=== PATIENT | female | born 1975 | race Caucasian/White ===

== ENCOUNTER 2023-12-30 15:35 | Inpatient (IN) | payer MEDICAID, SELFPAY ==
[2023-12-30] VITALS (10 sets, daily range): BP systolic 166–194; BP diastolic 91–108; PULSE 104–110; RESP 17–25; TEMP 36.7–37.2; O2SAT 87–98; BMI 39.9
--- NOTE | 2023-12-30 15:55 | EKG_ITS ---
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
--- NOTE | 2023-12-30 15:56 | XR_ITS ---
Examination: Foot, left, 3 views Technique: AP, oblique, lateral views foot, 3 views Date and time of exam: December 30, 2023 1612 hours INDICATIONS: Redness swelling and pain involving the first digit this week FINDINGS: Pronounced soft tissue swelling about the first digit Prominent bone destruction involving the ungual tuft tip distal phalanx first digit and more subtle bone destruction involving the shaft of the distal phalanx first digit on the medial side IMPRESSION: Significant osteomyelitis distal phalanx first digit, consider MRI foot without contrast follow-up
--- NOTE | 2023-12-30 15:56 | XR_ITS ---
Examination: AP lateral chest 2 views TECHNIQUE: Sitting AP lateral chest 2 views Exam date and time: December 30, 2023 1616 hours Comparison June 22, 2023 INDICATIONS: Shortness of breath today. FINDINGS: Mild chronic heart failure Mild enlargement cardiac contour with prominent vascular congestion Pneumonia both bases Moderate left large right pleural effusions Intact osseous structures IMPRESSION: Mild chronic heart failure Pneumonia both bases Moderate left large right pleural effusion
--- NOTE | 2023-12-30 16:00 | PD.EDRME ---
Rapid Medical Screening Exam [facility] Arrival date/time: 12/30/23 15:35 48-year-old female with past medical history diabetes mellitus type 2 on insulin, hypertension, polysubstance use disorder, history of kidney cancer status post partial nephrectomy, and legally blind presents emergency department complaining of left foot wound, periorbital swelling, tongue edema, and shortness of breath. Chief Complaint: Allergic Reaction Vital signs: Vital Signs Temperature 98.0 F 12/30/23 15:50 Pulse Rate 104 H 12/30/23 15:50 Respiratory Rate 18 12/30/23 15:50 Blood Pressure 170/96 H 12/30/23 15:50 Pulse Oximetry (%) 93 L 12/30/23 15:50 Oxygen Delivery Method Room Air 12/30/23 15:50
[2023-12-30] MEDS: DiphenhydrAMINE 25 MG CAPSULE PO (16:09)
[2023-12-30] MEDS: FAMOTIDINE 20 MG TABLET 40 MG PO (16:09)
[2023-12-30] MEDS: DEXAMETHASONE SOD PHOS INJ 10 MG/ML VIAL IM (16:23)
[2023-12-30 16:45] LABS: Lactate (Lactic Acid) 1.4 mMol/L (0.4-2.0)
[2023-12-30 16:50] LABS: Basophils # (Auto) 0.1 Thou/mm3 (0.0-0.2); Basophils % (Auto) 1 % (0-2.5); Eosinophils # (Auto) 0.1 Thou/mm3 (0.0-0.5); Eosinophils % (Auto) 1 % (0-10); Hematocrit 28.8 % (36.0-46.0); Immature Granulocytes % (Auto) 1 % (0-0); Immature Granulocytes Auto 0.12 Thou/mm3 (0.00-0.00); Lymphocytes # (Auto) 1.2 Thou/mm3 (1.0-4.8); Lymphocytes % (Auto) 11 % (10-50); Mean Corpuscular HGB Conc 30.6 g/dl (31.0-37.0); Mean Corpuscular Hemoglobin 29.3 pg (25.0-35.0); Mean Corpuscular Volume 96 fL (80-100); Monocytes # (Auto) 1.1 Thou/mm3 (0.0-0.8); Monocytes % (Auto) 10 % (0-12); Neutrophils # (Auto) 8.4 Thou/mm3 (1.8-7.7); Neutrophils % (Auto) 76 % (37-80); Nucleated Red Blood Cell % 0 /100 WBC (0); Platelet Count 364 Thou/mm3 (140-440); RDW Standard Deviation 48.5 fL (36.4-46.3); White Blood Count 10.9 Thou/mm3 (3.6-11.0)
[2023-12-30 17:03] LABS: Hemoglobin 8.8 g/dL (12.0-16.0)
[2023-12-30 17:06] LABS: Partial Thromboplastin Time 30.1 Seconds (22.0-36.0); Prothrombin Time 10.6 Seconds (9.0-12.2)
[2023-12-30 17:08] LABS: B-Type Natriuretic Peptide 165 pg/mL (0-100)
[2023-12-30 17:16] LABS: Alanine Aminotransferase 32 U/L (10-49); Albumin, Serum 3.6 gm/dL (3.5-5.0); Alkaline Phosphatase 333 U/L (46-116); Anion Gap 7 (7-16); Aspartate Amino Transferase 24 U/L (0-34); BUN/Creatinine Ratio 16 Ratio (12-20); Bilirubin,Total 0.2 mg/dL (0.3-1.2); Blood Urea Nitrogen 48 mg/dL (9-23); Calcium 8.8 mg/dL (8.3-10.6); Calcium (Corrected) 9.1 mg/dL (8.5-10.1); Chloride 112 mMol/L (98-107); Estimated Creatinine Clearance 27.5 mL/min (>60); Globulin 3.7 gm/dL (2.3-3.5); Glucose 80 mg/dL (74-106); Magnesium 1.8 mg/dL (1.6-2.6); Osmolality,Calculated 287 (275-295); Potassium 4.6 mMol/L (3.4-5.1); Procalcitonin 0.18 ng/ml (0.0-0.49); Sodium 138 mMol/L (136-145); Total Protein 7.3 gm/dL (5.7-8.2); Troponin I < 0.020 ng/mL (0.0-0.045); eGFR 18 See Note
--- NOTE | 2023-12-30 18:24 | PD.EDADULT ---
ED General RME/HPI General Chief complaint: Allergic Reaction Stated complaint: swollen face Time Seen by Provider: 12/30/23 18:13 Source: patient Arrival date/time: 12/30/23 15:35 Mode of arrival: ambulatory Limitations: no limitations RME / HPI RME / HPI narrative: --- DR. MCCONNELL MAIN ED EVALUATION: 48-year-old female with past medical history diabetes mellitus type 2 on insulin, hypertension, polysubstance use disorder, history of kidney cancer status post partial nephrectomy, and legally blind presents emergency department complaining of left foot wound after falling 3 weeks ago in the shower. Patient states that in the last 3 days she started having increasing pain in her big left toe. Current drainage that started the last few days. The patient can see if she was told by her family member that is starting to leak none yellow drainage. Related Data Home Medications ?Medication ?Instructions ?Recorded ?Confirmed gabapentin 600 mg tablet 1,200 mg PO TID 06/16/20 06/22/23 Previous Rx's ?Medication ?Instructions ?Recorded insulin syringe-needle U-100 1 mL #100 ea 02/22/20 28 gauge x 1/2 (BD Insulin Syringe) hydroxyzine HCl 25 mg tablet 25 mg PO HS PRN insom #30 tabs 06/06/23 insulin glulisine U-100 100 10 unit (0.1 mL) subcut TIDWM 30 06/06/23 unit/mL subcutaneous pen days #15 mL trazodone 50 mg tablet 50 mg PO QDAY #30 tabs 06/06/23 blood pressure monitor (Blood #1 ea 06/28/23 Pressure Kit) Allergies Allergy/AdvReac Type Severity Reaction Status Date / Time No Known Allergies Allergy Verified 06/06/23 15:59 Review of Systems Review of Systems Systems Reviewed: All systems reviewed, normal except as documented Narrative Review of Systems: Patient has pain to the right big toe. There is drainage. Denies fevers. No nausea vomiting or diarrhea. Past Medical History Past Medical History NEUROLOGIC: Negative Neurological Disorders or Seizures CARDIAC: Positive Hypertension; Negative Cardiac Disorders or Congestive Heart Failure RESPIRATORY: Negative Chronic Obstructive Pulmonary Disease (COPD) or Asthma GASTROINTESTINAL: Negative Gastrointestinal Disorders GENITOURINARY: Positive Renal Disease REPRODUCTIVE: Positive Previous Pregnancies MUSCULOSKELETAL: Positive Osteomyelitis ENDOCRINE: Positive Endocrine Disorders and Diabetes Mellitus Type 2; Negative Diabetes Mellitus Type 1 HEMATOLOGIC: Negative Sickle Cell Disease PSYCHO/SOCIAL: Positive Depression OTHER HISTORY: Positive Hospitalization and Chicken Pox; Negative Autoimmune Disease, Blood Transfusions, Blood Transfusion Reaction, Anesthesia Reactions or Organ Transplant Family History FAMILY HISTORY: Positive Family Cancer; Negative Family Respiratory Disorders, Family Cardiac Disorders, Family Gastrointestinal Problems, Family Surgery or Family Anesthesia Reaction Surgical History SURGICAL: Positive Abdominal Surgery, Amputation and Section; Negative Cardiac Surgery, Nephrectomy or Organ Transplant Social History SMOKING STATUS: Never smoker ED Exam General Limitations: Present no limitations General appearance: Present alert, in no apparent distress and obese Head Head exam: Present atraumatic, normocephalic and normal inspection Eye Eye exam: Present normal appearance, PERRL and EOMI ENT ENT exam: Present normal exam, normal oropharynx, TM's normal bilaterally and normal external ear exam Neck Neck exam: Present normal inspection and full ROM Chest Chest inspection: Present normal inspection and symmetric chest wall rise Respiratory Respiratory exam: Present normal lung sounds bilaterally Cardiovascular Cardiovascular exam: Present regular rate, normal rhythm and normal heart sounds Abdominal Exam Abdominal exam: Present normal bowel sounds Extremities Exam Extremities exam: Present normal inspection and full ROM Expanded Lower Extremity Exam Foot/toe exam: Present other (Swollen crusted over big meta carpal. No crepitus. No erythema.) Back Exam Back exam: Present normal inspection and full ROM Neurological Exam Neurological exam: Present alert, oriented X3 and CN II-XII intact Psychiatric Psychiatric exam: Present normal affect and normal mood; Absent depressed Skin Skin exam: Present warm, dry, intact and normal color Course Course Course Narrative: CXR is ordered for determining etiology of shortness of breath. Quality Measures none Orders Category Date Time Status Bedside COVID-19 Antigen Test NOW Care 12/30/23 20:23 Active COVID-19 Screening Questionnaire NOW Care 12/30/23 20:17 Active Decision to Admit X1 Care 12/30/23 20:17 Completed EKG (ED ONLY) *Do not use* NOW Care 12/30/23 15:56 Completed Consult to General Surgery Stat Cons 12/30/23 20:16 Ordered EKG (ED Only) Stat Exams 12/30/23 15:55 Draft XR chest 2V Stat Exams 12/30/23 15:56 Completed XR foot comp LT min 3V Stat Exams 12/30/23 15:56 Completed BNP [B-Type Natriuretic Peptide] Stat Lab 12/30/23 16:28 Completed Blood Culture (Lab) Stat Lab 12/30/23 16:20 Received CBC Stat Lab 12/30/23 16:28 Completed Comprehensive Metabolic Panel Stat Lab 12/30/23 16:28 Completed Lactate (Lactic Acid) Stat Lab 12/30/23 16:28 Completed Mag [Magnesium] Stat Lab 12/30/23 16:28 Completed PT [Prothrombin Time with INR] Stat Lab 12/30/23 16:28 Completed PTT [Partial Thromboplastin Time] Stat Lab 12/30/23 16:28 Completed Procalcitonin Stat Lab 12/30/23 16:28 Completed Troponin I Stat Lab 12/30/23 16:28 Completed Urinalysis, C/S if Indicated Stat Lab 12/30/23 19:51 Completed Dexamethasone Inj [Decadron Inj] Med 12/30/23 16:11 Discontinued 10 mg IM X1 ONE DiphenhydrAMINE [Benadryl] Med 12/30/23 16:02 Discontinued 25 mg PO X1 ONE Famotidine [Pepcid] Med 12/30/23 16:02 Discontinued 40 mg PO X1 ONE Morphine Inj Med 12/30/23 20:06 Discontinued 4 mg IVP X1 ONE Ondansetron Inj [Zofran Inj] Med 12/30/23 20:06 Discontinued 4 mg IV X1 ONE Piper/Tazo Inj [Zosyn Inj] 3.375 gm Med 12/30/23 20:06 Active Sodium Chloride 0.9% (P) [Ns 0.9% (P)] 50 ml IV X1 Vancomycin Inj 500 mg Med 12/30/23 20:16 Active Sodium Chloride 0.9% (P) [NS 0.9% mini bag] 100 ml IV X1 Vital Signs Vital signs: Vital Signs Temperature 98.0 F 12/30/23 15:50 Pulse Rate 104 H 12/30/23 15:50 Respiratory Rate 18 12/30/23 15:50 Blood Pressure 170/96 H 12/30/23 15:50 Pulse Oximetry (%) 93 L 12/30/23 15:50 Oxygen Delivery Method Room Air 12/30/23 15:50 [facility] Patient data External records reviewed:: [facility] previous records Clinical information provided by:: patient Social determinants that could affect healthcare access:: none (polysubstance use disorder,) Patient has the following chronic illnesses:: Past medical history High blood pressure Hypertension T2DM, Polysubstance use disorder, Kidney cancer Vision impairment secondary to diabetic retinopathy, Past surgical history s/p partial nephrectomy Osteomyelitis of R foot s/p debridements/amputations History of back surgery How is presenting disease/condition affected by chronic disease/condition?: uneffected by Evaluation data The following diagnostics were reviewed and interpreted by me:: lab results, radiology exam(s) and EKG tracing(s) Lab and/or radiology exams considered but not ordered:: None Interpretation Summary: I personally reviewed and interpreted the LT FOOT XR and CXR on this patient. I additionally reviewed the radiologist report and agree with that interpretation. Examination: Foot, left, 3 views Technique: AP, oblique, lateral views foot, 3 views Date and time of exam: December 30, 2023 1612 hours INDICATIONS: Redness swelling and pain involving the first digit this week FINDINGS: Pronounced soft tissue swelling about the first digit Prominent bone destruction involving the ungual tuft tip distal phalanx first digit and more subtle bone destruction involving the shaft of the distal phalanx first digit on the medial side IMPRESSION: Significant osteomyelitis distal phalanx first digit, consider MRI foot without contrast follow-up Dictated By: Christian Cooper MD Examination: AP lateral chest 2 views TECHNIQUE: Sitting AP lateral chest 2 views Exam date and time: December 30, 2023 1616 hours Comparison June 22, 2023 INDICATIONS: Shortness of breath today. FINDINGS: Mild chronic heart failure Mild enlargement cardiac contour with prominent vascular congestion Pneumonia both bases Moderate left large right pleural effusions Intact osseous structures IMPRESSION: Mild chronic heart failure Pneumonia both bases Moderate left large right pleural effusion Dictated By: Christian Cooper MD Medications Medications considered but not ordered:: None Medication administrations:: Medication Administration History Piperacillin Sod/Tazobactam (Sod 3.375 gm/ Sodium Chloride) 50 mls @ 100 mls/hr IV X1 ONE Stop: 12/30/23 20:35 Last Admin: 12/30/23 20:20 Dose: 100 mls/hr Documented By: FARIHA Vancomycin HCl 500 mg/ Sodium (Chloride) 100 mls @ 100 mls/hr IV X1 ONE Stop: 12/30/23 21:15 Discontinued Medications Dexamethasone Sodium Phosphate (Dexamethasone Sod Phos Inj 10 Mg/Ml Vial) 10 mg IM X1 ONE Stop: 12/30/23 16:12 Last Admin: 12/30/23 16:23 Dose: 10 mg Documented By: Diphenhydramine HCl (Diphenhydramine 25 Mg Capsule) 25 mg PO X1 ONE Stop: 12/30/23 16:03 Last Admin: 12/30/23 16:09 Dose: 25 mg Documented By: Famotidine (Famotidine 20 Mg Tablet) 40 mg PO X1 ONE Stop: 12/30/23 16:03 Last Admin: 12/30/23 16:09 Dose: 40 mg Documented By: Morphine Sulfate (Morphine Sulf Inj 10 Mg/Ml Vial) 4 mg IVP X1 ONE Stop: 12/30/23 20:07 Last Admin: 12/30/23 20:20 Dose: 4 mg Documented By: CB Ondansetron HCl (Ondansetron Inj 2 Mg/Ml Inj 2 Ml) 4 mg IV X1 ONE; Protocol Stop: 12/30/23 20:07 Last Admin: 12/30/23 20:19 Dose: 4 mg Documented By: FARIHA As above Consultations Consultation(s) initiated? (list below): Yes Diagnosis Differential Diagnosis ED Complaint MDM: osteomyelitis, cellulitis, recurrent osteo, fracture, diabetic foot ulcer Most likely diagnosis given after review of the tests above:: Osteomyelitis of great toe, Pleural effusion, Shortness of breath, KIM (acute kidney injury) Admission Indicated Admission indicated?: indicated Explain why admission is indicated or not indicated:: Significant findings warranting inpatient admission Admission Request Was there a request for admission?: No Disposition Plan Disposition Plan: Admit Medical Decision Making MDM Narrative MDM Narrative: 48-year-old female with past medical history diabetes mellitus type 2 on insulin, hypertension, polysubstance use disorder, history of kidney cancer status post partial nephrectomy, and legally blind presents emergency department complaining of left foot wound after falling 3 weeks ago in the shower. Patient states that in the last 3 days she started having increasing pain in her big left toe. Current drainage that started the last few days. The patient can see if she was told by her family member that is starting to leak none yellow drainage. Assessment and plan: Follow-up exam. X-ray to look for osteomyelitis, labs to ensure that she does not have occult bacteremia. ? Scribe Attestation: I, Eli Wright, am scribing for and in the presence of Dr. Jameson. Provider Notation: Although this document has been carefully reviewed, there may still be some phonetic and other typographical errors. These errors are purely grammatical due to imperfections in the software program and should not be construed in any way to compromise the substance of the patient's medical care during this visit. Differential Diagnosis Differential Diagnosis: osteomyelitis, cellulitis, recurrent osteo, fracture, diabetic foot ulcer Medical Records Medical records reviewed: Yes I reviewed the patient's medical records. Lab Data Lab results reviewed: Yes I reviewed the patient's lab results. 12/30/23 16:28 12/30/23 16:28 Labs: Lab Results 12/30/23 12/30/23 Range/Units 16:28 19:51 WBC 10.9 (3.6-11.0) Thou/mm3 RBC 3.00 L (4.00-5.20) Miln/mm3 Hgb 8.8 L (12.0-16.0) g/dL Hct 28.8 L (36.0-46.0) % MCV 96 (80-100) fL MCH 29.3 (25.0-35.0) pg MCHC 30.6 L (31.0-37.0) g/dl RDW Std Deviation 48.5 H (36.4-46.3) fL Plt Count 364 (140-440) Thou/mm3 Neut % (Auto) 76 (37-80) % Lymph % (Auto) 11 (10-50) % [place] % (Auto) 10 (0-12) % Eos % (Auto) 1 (0-10) % Baso % (Auto) 1 (0-2.5) % Neut # (Auto) 8.4 H (1.8-7.7) Thou/mm3 Lymph # (Auto) 1.2 (1.0-4.8) Thou/mm3 [place] # (Auto) 1.1 H (0.0-0.8) Thou/mm3 Eos # (Auto) 0.1 (0.0-0.5) Thou/mm3 Baso # (Auto) 0.1 (0.0-0.2) Thou/mm3 Immature Gran # (Auto) 0.12 H (0.00-0.00) Thou/mm3 Absolute Nucleated RBC 0.00 (0.00-0.00) Thou/mm3 Immature Gran % 1 H (0-0) % Nucleated RBC % 0 (0) /100 WBC PT 10.6 (9.0-12.2) Seconds INR 1.0 (0.9-1.3) APTT 30.1 (22.0-36.0) Seconds Sodium 138 (136-145) mMol/L Potassium 4.6 (3.4-5.1) mMol/L Chloride 112 H (98-107) mMol/L Carbon Dioxide 19.0 L (20.0-31.0) mMol/L Anion Gap 7 (7-16) BUN 48 H (9-23) mg/dL Creatinine 3.0 H (0.6-1.3) mg/dL Estim Creat Clear Calc 27.5 L (>60) mL/min eGFR 18 L (60 - ) See Note BUN/Creatinine Ratio 16 (12-20) Ratio Glucose 80 (74-106) mg/dL Calculated Osmolality 287 (275-295) Lactic Acid 1.4 (0.4-2.0) mMol/L Calcium 8.8 (8.3-10.6) mg/dL Corrected Calcium 9.1 (8.5-10.1) mg/dL Magnesium 1.8 (1.6-2.6) mg/dL Total Bilirubin 0.2 L (0.3-1.2) mg/dL AST 24 (0-34) U/L ALT 32 (10-49) U/L Alkaline Phosphatase 333 H (46-116) U/L Troponin I < 0.020 (0.0-0.045) ng/mL B-Natriuretic Peptide 165 H (0-100) pg/mL Total Protein 7.3 (5.7-8.2) gm/dL Albumin 3.6 (3.5-5.0) gm/dL Globulin 3.7 H (2.3-3.5) gm/dL Albumin/Globulin Ratio 1.0 L (1.2-2.2) Procalcitonin 0.18 (0.0-0.49) ng/ml Ur Collection Type Clean Catch Urine Color Lt-Yellow (Lt Yel-Yel) Urine Clarity Clear (Clear/Hazy) Urine pH 6.5 (5.0-7.0) Ur Specific [place] 1.020 (1.001-1.035) Urine Protein 3+ A (Neg - Trace) Urine Glucose (UA) 2+ A (Negative) Urine Ketones Negative (Negative) Urine Blood 2+ A (Negative) Urine Nitrite Negative (Negative) Urine Bilirubin Negative (Negative) Urine Urobilinogen (Auto) Negative (0.0-1.0) mg/dL Ur Leukocyte Esterase Negative (Negative) Urine RBC 7 H (0-3) /hpf Urine WBC 3 (0-5) /hpf Ur Squamous Epith Cells 1 (0-5) /hpf Urine Bacteria None (None) Ur Culture Indicated? Not Indicated Radiology Data Radiology results reviewed: Yes I reviewed the patient's radiology results. Discharge Plan Plan Patient Disposition: Other Care w/in Hosp ([facility]) Patient condition on transfer: Stable Prescriptions/Referrals Prescriptions/Med Rec: No Action gabapentin 600 mg Tablet 1,200 mg PO TID (DME) insulin syringe-needle U-100 [BD Insulin Syringe] 1 mL 28 gauge x 1/2 syringe See Rx Instructions .ROUTE .MEDSUPPLY Qty: 100 0RF Rx Instructions: As directed trazodone 50 mg tablet 50 mg PO QDAY Qty: 30 0RF hydroxyzine HCl 25 mg tablet 25 mg PO HS PRN (Reason: insom) Qty: 30 0RF insulin glulisine U-100 100 unit/mL insulin pen 10 unit subcut TIDWM 30 Days Qty: 15 1RF (DME) blood pressure monitor [Blood Pressure Kit] Kit See Rx Instructions .Route Qty: 1 0RF Rx Instructions: As directed Referrals: No Primary/Family,Physician [Primary Care Provider] - In 1 week Problem List Clinical Impression: Osteomyelitis of great toe, Pleural effusion, Shortness of breath, KIM (acute kidney injury) Patient/Caregiver Discharge Instructions Print Language: Yi Stand Alone Forms: Monik Award Info., Patient Portal Info Letter PA/[employer] Supervising Physician PA/[employer] Supervising Physician: Salas Brock ENP
--- NOTE | 2023-12-30 19:33 | PD.EDRME ---
Rapid Medical Screening Exam RME Arrival date/time: 12/30/23 15:35 12/30/23 48-year-old female with past medical history diabetes mellitus type 2 on insulin, hypertension, polysubstance use disorder, history of kidney cancer status post partial nephrectomy, and legally blind presents emergency department complaining of left foot wound after falling 3 weeks ago in the shower. Patient states that in the last 3 days she started having increasing pain in her big left toe. Current drainage that started the last few days. The patient can see if she was told by her family member that is starting to leak none yellow drainage. Past medical history High blood pressure Hypertension T2DM, Polysubstance use disorder, Kidney cancer s/p partial nephrectomy, Vision impairment secondary to diabetic retinopathy, Osteomyelitis of R foot s/p debridements/amputations History of back surgery Chief Complaint: Allergic Reaction Time Seen by Provider: 12/30/23 18:13 Vital signs: Vital Signs Temperature 98.0 F 12/30/23 15:50 Pulse Rate 104 H 12/30/23 15:50 Respiratory Rate 18 12/30/23 15:50 Blood Pressure 170/96 H 12/30/23 15:50 Pulse Oximetry (%) 93 L 12/30/23 15:50 Oxygen Delivery Method Room Air 12/30/23 15:50 RME Narrative: 12/30/23 48-year-old female with past medical history diabetes mellitus type 2 on insulin, hypertension, polysubstance use disorder, history of kidney cancer status post partial nephrectomy, and legally blind presents emergency department complaining of left foot wound after falling 3 weeks ago in the shower. Patient states that in the last 3 days she started having increasing pain in her big left toe. Current drainage that started the last few days. The patient can see if she was told by her family member that is starting to leak none yellow drainage. Past medical history High blood pressure Hypertension T2DM, Polysubstance use disorder, Kidney cancer s/p partial nephrectomy, Vision impairment secondary to diabetic retinopathy, Osteomyelitis of R foot s/p debridements/amputations History of back surgery
--- NOTE | 2023-12-30 19:56 | PD.EDADULT ---
ED General RME/HPI General Chief complaint: Allergic Reaction Stated complaint: swollen face Time Seen by Provider: 12/30/23 18:13 Arrival date/time: 12/30/23 15:35 CC: Left great toe pain shortness of breath HPI left great toe has been oozing pus for the past 2 to 3 days, the patient also complaining of 24 hours of progressive worsening shortness of breath. Patient denies chest pain, is also complaining of swollen upper extremities and acute on chronic back pain. Patient denies fall. Patient is well-known to us from multiple admissions and has an extensive medical history. Related Data Home Medications ?Medication ?Instructions ?Recorded ?Confirmed gabapentin 600 mg tablet 1,200 mg PO TID 06/16/20 12/30/23 Previous Rx's ?Medication ?Instructions ?Recorded insulin syringe-needle U-100 1 mL #100 ea 02/22/20 28 gauge x 1/2 (BD Insulin Syringe) hydroxyzine HCl 25 mg tablet 25 mg PO HS PRN insom #30 tabs 06/06/23 insulin glulisine U-100 100 10 unit (0.1 mL) subcut TIDWM 30 06/06/23 unit/mL subcutaneous pen days #15 mL blood pressure monitor (Blood #1 ea 06/28/23 Pressure Kit) Allergies Allergy/AdvReac Type Severity Reaction Status Date / Time No Known Allergies Allergy Verified 06/06/23 15:59 Review of Systems Review of Systems Narrative Review of Systems: GEN: No fever, no chills, no weight loss EYES: No discharge, no visual changes, no pain HEENT: No ear pain, no congestion, no sore throat PULM: + shortness of breath, no cough, no congestion CV: No chest pain, no dyspnea on exertion, no palpitations GI: No nausea, no vomiting, no diarrhea, no pain, no constipation : No frequency, no urgency, no dysuria MUSC/SKEL: + joint pain, + back pain SKIN: No rash PSYCH: No hallucinations, no depression HEME/LYMPH: No easy bleeding or bruising tendencies NEURO: No weakness, no headache Past Medical History Past Medical History NEUROLOGIC: Negative Neurological Disorders or Seizures CARDIAC: Positive Hypertension; Negative Cardiac Disorders or Congestive Heart Failure RESPIRATORY: Negative Chronic Obstructive Pulmonary Disease (COPD) or Asthma GASTROINTESTINAL: Negative Gastrointestinal Disorders GENITOURINARY: Positive Renal Disease REPRODUCTIVE: Positive Previous Pregnancies MUSCULOSKELETAL: Positive Osteomyelitis ENDOCRINE: Positive Endocrine Disorders and Diabetes Mellitus Type 2; Negative Diabetes Mellitus Type 1 HEMATOLOGIC: Negative Sickle Cell Disease PSYCHO/SOCIAL: Positive Depression OTHER HISTORY: Positive Hospitalization and Chicken Pox; Negative Autoimmune Disease, Blood Transfusions, Blood Transfusion Reaction, Anesthesia Reactions or Organ Transplant Family History FAMILY HISTORY: Positive Family Cancer; Negative Family Respiratory Disorders, Family Cardiac Disorders, Family Gastrointestinal Problems, Family Surgery or Family Anesthesia Reaction Surgical History SURGICAL: Positive Abdominal Surgery, Amputation and Section; Negative Cardiac Surgery, Nephrectomy or Organ Transplant Social History SMOKING STATUS: Never smoker ED Exam Narrative Physical exam: [General: Obese in moderate discomfort but not in any acute distress Head normocephalic HEENT: Within acceptable limits Neck is supple nontender Chest equal chest rise nontender to palpation Respiratory: Diminished breath sounds on right CV: Rate rhythm is regular no murmurs rubs or clicks Abdomen is distended secondary to body habitus soft nontender no masses positive bowel sounds all 4 quadrants Back: No CVA tenderness no spinous process tenderness from cervical spine thoracic and lumbar spine Skin: Open crusting and lesion oozing exudate from the tip of the first digit on the left foot. Otherwise skin is intact no petechiae rash induration ulceration or crepitus Extremities: Nonpitting edema to the upper extremities nonpitting edema to the lower extremities. Decreased range of motion secondary to edema in the lower extremities moving all extremity against resistance cap refill less than 2 seconds neurosensory intact Neuro: Awake alert oriented x3 Glascow coma 15 no focal deficits] Course Quality Measures none Orders Category Date Time Status Bedside COVID-19 Antigen Test NOW Care 12/30/23 20:23 Active COVID-19 Screening Questionnaire NOW Care 12/30/23 20:17 Active Decision to Admit X1 Care 12/30/23 20:17 Completed EKG (ED ONLY) *Do not use* NOW Care 12/30/23 15:56 Completed Consult to General Surgery Stat Cons 12/30/23 20:16 Ordered EKG (ED Only) Stat Exams 12/30/23 15:55 Draft XR chest 2V Stat Exams 12/30/23 15:56 Completed XR foot comp LT min 3V Stat Exams 12/30/23 15:56 Completed BNP [B-Type Natriuretic Peptide] Stat Lab 12/30/23 16:28 Completed Blood Culture (Lab) Stat Lab 12/30/23 16:20 Received CBC Stat Lab 12/30/23 16:28 Completed Comprehensive Metabolic Panel Stat Lab 12/30/23 16:28 Completed Lactate (Lactic Acid) Stat Lab 12/30/23 16:28 Completed Mag [Magnesium] Stat Lab 12/30/23 16:28 Completed PT [Prothrombin Time with INR] Stat Lab 12/30/23 16:28 Completed PTT [Partial Thromboplastin Time] Stat Lab 12/30/23 16:28 Completed Procalcitonin Stat Lab 12/30/23 16:28 Completed Troponin I Stat Lab 12/30/23 16:28 Completed Urinalysis, C/S if Indicated Stat Lab 12/30/23 19:51 Completed Dexamethasone Inj [Decadron Inj] Med 12/30/23 16:11 Discontinued 10 mg IM X1 ONE DiphenhydrAMINE [Benadryl] Med 12/30/23 16:02 Discontinued 25 mg PO X1 ONE Famotidine [Pepcid] Med 12/30/23 16:02 Discontinued 40 mg PO X1 ONE Morphine Inj Med 12/30/23 20:06 Discontinued 4 mg IVP X1 ONE Ondansetron Inj [Zofran Inj] Med 12/30/23 20:06 Discontinued 4 mg IV X1 ONE Piper/Tazo Inj [Zosyn Inj] 3.375 gm Med 12/30/23 20:06 Discontinued Sodium Chloride 0.9% (P) [Ns 0.9% (P)] 50 ml IV X1 Vancomycin Inj 500 mg Med 12/30/23 20:16 Discontinued Sodium Chloride 0.9% (P) [NS 0.9% mini bag] 100 ml IV X1 Vital Signs Vital signs: Vital Signs Temperature 98.0 F 12/30/23 15:50 Pulse Rate 104 H 12/30/23 15:50 Respiratory Rate 18 12/30/23 15:50 Blood Pressure 170/96 H 12/30/23 15:50 Pulse Oximetry (%) 93 L 12/30/23 15:50 Oxygen Delivery Method Room Air 12/30/23 15:50 [facility] Patient data External records reviewed:: [facility] previous records Clinical information provided by:: patient Social determinants that could affect healthcare access:: none Patient has the following chronic illnesses:: Hypertension diabetes type 2 Sub polysubstance disuse kidney cancer status post partial nephrectomy legal blindness secondary to diabetic neuropathy osteomyelitis with multiple old toe amputations. How is presenting disease/condition affected by chronic disease/condition?: uneffected by Evaluation data The following diagnostics were reviewed and interpreted by me:: lab results, radiology exam(s) and EKG tracing(s) Lab and/or radiology exams considered but not ordered:: CBC shows WBCs of 10.9 H&H of 8.8 and 28.8 with platelets of 364 CMP shows a sodium of 138 potassium of 4.6 chloride of 112 CO2 of 19.0 BUN of 48 creatinine 3.0 with a blood glucose of 80 Coags within acceptable limits. Total bili is 0.2 AST 24 ALT 32 alk phos of 333 BNP is 165 Pro-John 0.18 Chest x-ray shows a large right pleural effusion X-ray of the foot shows extensive osteomyelitis of the first digit of the foot. Interpretation Summary: Patient has osteomyelitis of the great toe, large pleural effusion, and KIM. Patient's case discussed with resident for Dr. Cunningham who agrees to accept the patient for admission Patient's case also discussed with Dr. Wiseman who agrees to consult on this patient. Medications Medications considered but not ordered:: None Medication administrations:: Medication Administration History Acetaminophen (Acetaminophen 325 Mg Tablet) 650 mg PO Q6H PRN PRN Reason: PAIN OR FEVER > 101 Stop: 01/29/24 20:51 Hydrocodone Bitart/Acetaminophen (Hydrocodone/Apap 5/325 Tablet) 1 tab PO Q6HR PRN PRN Reason: PAIN SCALE 4-10(Mod-Sev Stop: 01/04/24 20:51 Last Admin: 12/31/23 09:28 Dose: 1 tab Documented By: Admin: 12/30/23 22:47 Dose: 1 tab Documented By: FARIHA Amlodipine Besylate (Amlodipine Besylate 5 Mg Tablet) 10 mg PO QDAY KARY Stop: 01/30/24 08:59 Last Admin: 12/31/23 09:26 Dose: 10 mg Documented By: ROHAN Dextrose (Dextrose 50%-Water Inj 50 Ml Syringe) 25 ml IV Q15MIN PRN PRN Reason: BG 50-70 responsive npo pt Stop: 01/29/24 21:04 Dextrose (Dextrose 50%-Water Inj 50 Ml Syringe) 50 ml IV Q15MIN PRN PRN Reason: BG <50 OR BG <70 & pt unresponsive Stop: 01/29/24 21:04 Furosemide (Furosemide Inj 10 Mg/Ml 4ml Vial) 40 mg IVP QDAY [facility] Stop: 01/30/24 08:59 Last Admin: 12/31/23 09:28 Dose: 40 mg Documented By: ROHAN Gabapentin (Gabapentin 300 Mg Capsule) 300 mg PO TID [facility] Stop: 01/29/24 21:59 Last Admin: 12/31/23 06:34 Dose: 300 mg Documented By: Admin: 12/30/23 22:44 Dose: 300 mg Documented By: FARIHA Glucagon (Glucagon Inj 1 Mg Vial) 1 mg IM Q15MIN PRN PRN Reason: BG <70, and no IV access Heparin Sodium (Porcine) (Heparin Sod Inj 5000 Unit/Ml Vial) 5,000 unit SC Q12HR [facility] Stop: 01/14/24 08:59 Last Admin: 12/31/23 09:30 Dose: 5,000 unit Documented By: ROHAN Co-signed By: PREMA Hydralazine HCl (Hydralazine Hcl 25 Mg Tablet) 25 mg PO TID [facility] Stop: 01/30/24 08:59 Last Admin: 12/31/23 09:25 Dose: 25 mg Documented By: ROHAN Hydroxyzine HCl (Hydroxyzine Hcl 25 Mg Tablet) 25 mg PO HS PRN PRN Reason: insom Stop: 01/30/24 00:06 Last Admin: 12/31/23 00:28 Dose: 25 mg Documented By: FARIHA Piperacillin/Tazobactam/Dextrose (Zosyn) 50 mls @ 12.5 mls/hr IV Q8HR [facility]; Protocol Stop: 01/07/24 07:59 Last Admin: 12/31/23 09:22 Dose: 12.5 mls/hr Documented By: ROHAN Doxycycline Hyclate 100 mg/ (Sodium Chloride) 100 mls @ 100 mls/hr IV BID [facility] Stop: 01/07/24 08:59 Last Admin: 12/31/23 10:13 Dose: 100 mls/hr Documented By: ROHAN Insulin Glargine (Insulin Glargine (Lantus) 5 Unit/0.05 Ml (Per 5 Units)) 10 unit SC DAILY [facility] Stop: 01/30/24 08:59 Last Admin: 12/31/23 09:38 Dose: 10 unit Documented By: ROHAN Co-signed By: PREMA Insulin Human Lispro (Insulin Lispro (Admelog) 1 Unit/0.01 Ml Unit) 0 unit SC AC [facility]; Protocol Stop: 01/30/24 11:29 Ondansetron HCl (Ondansetron Inj 2 Mg/Ml Inj 2 Ml) 4 mg IV Q6H PRN; Protocol PRN Reason: NAUSEA OR VOMITING Stop: 01/29/24 20:51 Pantoprazole Sodium (Pantoprazole 40 Mg Tablet) 40 mg PO QDAY KARY Stop: 01/30/24 08:59 Last Admin: 12/31/23 09:27 Dose: 40 mg Documented By: ROHAN Sennosides (Senna Tablet) 1 tab PO QDAY KARY; Protocol Stop: 01/30/24 08:59 Last Admin: 12/31/23 09:27 Dose: 1 tab Documented By: ROHAN Discontinued Medications Dexamethasone Sodium Phosphate (Dexamethasone Sod Phos Inj 10 Mg/Ml Vial) 10 mg IM X1 ONE Stop: 12/30/23 16:12 Last Admin: 12/30/23 16:23 Dose: 10 mg Documented By: Diphenhydramine HCl (Diphenhydramine 25 Mg Capsule) 25 mg PO X1 ONE Stop: 12/30/23 16:03 Last Admin: 12/30/23 16:09 Dose: 25 mg Documented By: Famotidine (Famotidine 20 Mg Tablet) 40 mg PO X1 ONE Stop: 12/30/23 16:03 Last Admin: 12/30/23 16:09 Dose: 40 mg Documented By: Furosemide (Furosemide Inj 10 Mg/Ml 4ml Vial) 40 mg IVP X1 ONE Stop: 12/30/23 21:06 Last Admin: 12/30/23 21:25 Dose: 40 mg Documented By: FARIHA Furosemide (Furosemide Inj 10 Mg/Ml 4ml Vial) 20 mg IVP X1 ONE Stop: 12/31/23 01:12 Last Admin: 12/31/23 01:22 Dose: 20 mg Documented By: FARIHA Hydralazine HCl (Hydralazine Inj 20 Mg/Ml Vial) 10 mg IV X1 ONE Stop: 12/30/23 21:04 Last Admin: 12/30/23 21:25 Dose: 10 mg Documented By: FARIHA Hydralazine HCl (Hydralazine Hcl 25 Mg Tablet) 25 mg PO X1 ONE Stop: 12/31/23 00:32 Last Admin: 12/31/23 00:43 Dose: Not Given Documented By: CB Non-Admin Reason: Cancelled by Provider Piperacillin Sod/Tazobactam (Sod 3.375 gm/ Sodium Chloride) 50 mls @ 100 mls/hr IV X1 ONE Stop: 12/30/23 20:35 Last Infusion: 12/30/23 20:52 Dose: Infused Documented By: Admin: 12/30/23 20:20 Dose: 100 mls/hr Documented By: FARIHA Vancomycin HCl 500 mg/ Sodium (Chloride) 100 mls @ 100 mls/hr IV X1 ONE Stop: 12/30/23 21:15 Last Infusion: 12/30/23 22:05 Dose: Infused Documented By: Admin: 12/30/23 21:01 Dose: 100 mls/hr Documented By: FARIHA Piperacillin/Tazobactam/Dextrose (Zosyn) 50 mls @ 12.5 mls/hr IV Q8HR [facility] Stop: 01/07/24 05:59 Doxycycline Hyclate 100 mg/ (Sodium Chloride) 100 mls @ 100 mls/hr IV BID [facility] Stop: 01/06/24 20:59 Last Admin: 12/30/23 22:05 Dose: Not Given Documented By: CB Non-Admin Reason: Cancelled by Provider Piperacillin/Tazobactam/Dextrose (Zosyn) 50 mls @ 100 mls/hr IV X1 ONE Stop: 12/30/23 21:44 Doxycycline Hyclate 100 mg/ (Sodium Chloride) 100 mls @ 100 mls/hr IV X1 ONE Stop: 12/30/23 22:29 Last Infusion: 12/31/23 00:07 Dose: Infused Documented By: Admin: 12/30/23 22:44 Dose: 100 mls/hr Documented By: FARIHA Insulin Glargine (Insulin Glargine (Lantus) 5 Unit/0.05 Ml (Per 5 Units)) 10 unit SC X1 ONE Stop: 12/31/23 09:01 Insulin Human Lispro (Insulin Lispro (Admelog) 1 Unit/0.01 Ml Unit) 0 unit SC [facility]; Protocol Stop: 01/30/24 07:29 Last Admin: 12/31/23 09:47 Dose: Not Given Documented By: VG Non-Admin Reason: Discontinued Morphine Sulfate (Morphine Sulf Inj 10 Mg/Ml Vial) 4 mg IVP X1 ONE Stop: 12/30/23 20:07 Last Admin: 12/30/23 20:20 Dose: 4 mg Documented By: FARIHA Nitroglycerin (Nitroglycerin 0.4 Mg Subl Btl #25) 0.4 mg SL X1 ONE Stop: 12/31/23 00:39 Last Admin: 12/31/23 00:44 Dose: 0.4 mg Documented By: FARIHA Nitroglycerin (Nitroglycerin 0.4 Mg/Hr Patch.Td24) 0.4 mg TOP X1 ONE Stop: 12/31/23 01:11 Last Admin: 12/31/23 01:17 Dose: Not Given Documented By: FARIHA Non-Admin Reason: Cancelled by Provider Nitroglycerin (Nitroglycerin Oint 2% 1 Inch Packet) 1 inch TOP X1 ONE Stop: 12/31/23 01:17 Last Admin: 12/31/23 01:22 Dose: 1 inch Documented By: FARIHA Ondansetron HCl (Ondansetron Inj 2 Mg/Ml Inj 2 Ml) 4 mg IV X1 ONE; Protocol Stop: 12/30/23 20:07 Last Admin: 12/30/23 20:19 Dose: 4 mg Documented By: FARIHA None Consultations Consultation(s) initiated? (list below): No Diagnosis Differential Diagnosis ED Complaint MDM: Great toe osteomyelitis pleural effusion shortness of breath KIM Most likely diagnosis given after review of the tests above:: Osteomyelitis pleural effusion KIM Admission Indicated Admission indicated?: indicated Explain why admission is indicated or not indicated:: Requires further medical management Admission Request Was there a request for admission?: No Disposition Plan Disposition Plan: Admit Medical Decision Making Differential Diagnosis Differential Diagnosis: Great toe osteomyelitis pleural effusion shortness of breath KIM Lab Data 12/31/23 04:30 12/31/23 04:30 Labs: Lab Results 12/30/23 12/30/23 Range/Units 16:28 19:51 WBC 10.9 (3.6-11.0) Thou/mm3 RBC 3.00 L (4.00-5.20) Miln/mm3 Hgb 8.8 L (12.0-16.0) g/dL Hct 28.8 L (36.0-46.0) % MCV 96 (80-100) fL MCH 29.3 (25.0-35.0) pg MCHC 30.6 L (31.0-37.0) g/dl RDW Std Deviation 48.5 H (36.4-46.3) fL Plt Count 364 (140-440) Thou/mm3 Neut % (Auto) 76 (37-80) % Lymph % (Auto) 11 (10-50) % [place] % (Auto) 10 (0-12) % Eos % (Auto) 1 (0-10) % Baso % (Auto) 1 (0-2.5) % Neut # (Auto) 8.4 H (1.8-7.7) Thou/mm3 Lymph # (Auto) 1.2 (1.0-4.8) Thou/mm3 [place] # (Auto) 1.1 H (0.0-0.8) Thou/mm3 Eos # (Auto) 0.1 (0.0-0.5) Thou/mm3 Baso # (Auto) 0.1 (0.0-0.2) Thou/mm3 Immature Gran # (Auto) 0.12 H (0.00-0.00) Thou/mm3 Absolute Nucleated RBC 0.00 (0.00-0.00) Thou/mm3 Immature Gran % 1 H (0-0) % Nucleated RBC % 0 (0) /100 WBC PT 10.6 (9.0-12.2) Seconds INR 1.0 (0.9-1.3) APTT 30.1 (22.0-36.0) Seconds Sodium 138 (136-145) mMol/L Potassium 4.6 (3.4-5.1) mMol/L Chloride 112 H (98-107) mMol/L Carbon Dioxide 19.0 L (20.0-31.0) mMol/L Anion Gap 7 (7-16) BUN 48 H (9-23) mg/dL Creatinine 3.0 H (0.6-1.3) mg/dL Estim Creat Clear Calc 27.5 L (>60) mL/min eGFR 18 L (60 - ) See Note BUN/Creatinine Ratio 16 (12-20) Ratio Glucose 80 (74-106) mg/dL Calculated Osmolality 287 (275-295) Lactic Acid 1.4 (0.4-2.0) mMol/L Calcium 8.8 (8.3-10.6) mg/dL Corrected Calcium 9.1 (8.5-10.1) mg/dL Magnesium 1.8 (1.6-2.6) mg/dL Total Bilirubin 0.2 L (0.3-1.2) mg/dL AST 24 (0-34) U/L ALT 32 (10-49) U/L Alkaline Phosphatase 333 H (46-116) U/L Troponin I < 0.020 (0.0-0.045) ng/mL B-Natriuretic Peptide 165 H (0-100) pg/mL Total Protein 7.3 (5.7-8.2) gm/dL Albumin 3.6 (3.5-5.0) gm/dL Globulin 3.7 H (2.3-3.5) gm/dL Albumin/Globulin Ratio 1.0 L (1.2-2.2) Procalcitonin 0.18 (0.0-0.49) ng/ml Ur Collection Type Clean Catch Urine Color Lt-Yellow (Lt Yel-Yel) Urine Clarity Clear (Clear/Hazy) Urine pH 6.5 (5.0-7.0) Ur Specific [place] 1.020 (1.001-1.035) Urine Protein 3+ A (Neg - Trace) Urine Glucose (UA) 2+ A (Negative) Urine Ketones Negative (Negative) Urine Blood 2+ A (Negative) Urine Nitrite Negative (Negative) Urine Bilirubin Negative (Negative) Urine Urobilinogen (Auto) Negative (0.0-1.0) mg/dL Ur Leukocyte Esterase Negative (Negative) Urine RBC 7 H (0-3) /hpf Urine WBC 3 (0-5) /hpf Ur Squamous Epith Cells 1 (0-5) /hpf Urine Bacteria None (None) Ur Culture Indicated? Not Indicated Discharge Plan Plan Patient Disposition: Other Care w/in Hosp ([facility]C/[facility]JIV) Patient condition on transfer: Stable Problem List Clinical Impression: Osteomyelitis of great toe, Pleural effusion, Shortness of breath, KIM (acute kidney injury) PA/BRIM MOLDER Supervising Physician PA/BRIM MOLDER Supervising Physician: Salas Brock ENP
[2023-12-30 20:03] LABS: Collection Type, Urine Clean Catch
[2023-12-30 20:14] LABS: Bilirubin,Urine Negative (Negative); Blood,Urine 2+ (Negative); Clarity,Urine Clear (Clear/Hazy); Color,Urine Lt-Yellow (Lt Yel-Yel); Culture Indicated,Urine Not Indicated; Glucose, Urine 2+ (Negative); Ketones,Urine Negative (Negative); Leukocyte Esterase,Urine Negative (Negative); Nitrite,Urine Negative (Negative); PH,Urine 6.5 (5.0-7.0); Protein,Urine 3+ (Neg - Trace); RBC,Urine 7 /hpf (0-3); Squamous Epithelial Cell,Urine 1 /hpf (0-5); Urobilinogen,Urine Negative mg/dL (0.0-1.0); WBC,Urine 3 /hpf (0-5)
[2023-12-30] MEDS: ONDANSETRON INJ 2 MG/ML INJ 2 ML 4 MG IV (20:19)
[2023-12-30] MEDS: PIPER/TAZO INJ 3.375 GM in SODIUM CHLORIDE 0.9% (P) 50 ML IV (20:20)
[2023-12-30] MEDS: MORPHINE SULF INJ 10 MG/ML VIAL 4 MG IVP (20:20)
--- NOTE | 2023-12-30 20:56 | ECHO_ITS ---
Transthoracic Echo Report Ht (in): 65 Wt (lb): 240 Exam Location: Portable Status: Inpatient Liquid Loader: Ines Smart Indications: Procedure Performed: BP: 135 / 70 HR: 88 Rhythm: Sinus Technical Quality: Fair MEASUREMENTS (Male / Female) Normal Values 2D ECHO LV Diastolic Diameter PLAX 5.1 cm 4.2 - 5.9 / 3.9 - 5.3 cm LV Systolic Diameter PLAX 3.2 cm IVS Diastolic Thickness 1.0 cm 0.6 - 1.0 / 0.6 - 0.9 cm LVPW Diastolic Thickness 1.0 cm 0.6 - 1.0 / 0.6 - 0.9 cm LV Relative Wall Thickness 0.4 LVOT Diameter 1.8 cm LA Volume Index 20.0 cm?/m? 16 - 28 cm?/m? Ascending Aorta Diameter 2.7 cm M-MODE Aortic Root Diameter MM 2.4 cm LA Systolic Diameter MM 4.1 cm LA Ao Ratio MM 1.7 AV Cusp Separation MM 2.0 cm DOPPLER AV Peak Velocity 170.0 cm/s AV Peak Gradient 11.6 mmHg AV Mean Gradient 6.0 mmHg AV Velocity Time Integral 36.7 cm LVOT Peak Velocity 103.0 cm/s LVOT Peak Gradient 4.2 mmHg LVOT Velocity Time Integral 24.5 cm LVOT Cardiac Index 2397.5 cm?/min?m? AV Area Cont Eq vti 1.7 cm? AV Area Cont Eq pk 1.5 cm? MV Peak Velocity 149.0 cm/s MV Peak Gradient 8.9 mmHg MV Mean Velocity 91.0 cm/s MV Mean Gradient 4.0 mmHg MV Area PHT 5.4 cm? MR Peak Velocity 400.0 cm/s MR Peak Gradient 64.0 mmHg Mitral E Point Velocity 125.0 cm/s Mitral A Point Velocity 114.0 cm/s Mitral E to A Ratio 1.1 LV E' Lateral Velocity 8.8 cm/s Mitral E to LV E' Lateral Ratio 14.2 LV E' Septal Velocity 6.7 cm/s Mitral E to LV E' Septal Ratio 18.5 TR Peak Velocity 252.7 cm/s TR Peak Gradient 25.5 mmHg FINDINGS Left Ventricle Normal left ventricular size, systolic function with no obvious regional wall motion abnormalities. Mild LVH. The ejection fraction is visually estimated at 60-65%. Right Ventricle The right ventricle is normal in size and systolic function. The estimated right ventricular systoli c pressure, 28mmHg.RAP5. Left Atrium The left atrium is normal by two-dimensional, color flow and Doppler imaging with no structural abnormalities, no thrombus formation present. Right Atrium The right atrium is normal by two-dimensional imaging, color flow and Doppler imaging with no struct ural abnormalities, no thrombus formation present. Atrial Septum The interatrial septum appears normal with no evidence of a shunt. Aorta The aorta is normal by two-dimensional, color flow and Doppler interrogation. Mitral Valve The mitral valve is normal by two-dimensional, color flow and Doppler interrogation. There is mild mitral valve regurgitation. Aortic Valve The aortic valve is trileaflet. Mild sclerosis without stenosis. There is no significant aortic valv e regurgitation. Tricuspid Valve The tricuspid valve is normal by two-dimensional, color flow and Doppler interrogation. There is mil d tricuspid valve regurgitation. Pulmonic Valve There is no significant pulmonic valve regurgitation. Vessels The pulmonary artery appears normal. The inferior vena cava pulmonary and hepatic veins appear colby l. Pericardium The pericardium is normal by two-dimensional imaging. There is a small circumferential pericardial effusion. No evidence of cardiac tamponade. CONCLUSIONS Indication: Heart failure Normal LV size and function. Estimated EF 60-65%. Mild LVH. Diatsolic dysfunction stage 1 Normal RV size and function. Mild MR, TR. There is a small circumferential pericardial effusion. No evidence of cardiac tamponade. Thad Salgado (Electronically Signed) Final Date: 01 January 2024 17:47
--- NOTE | 2023-12-30 21:00 | XR_ITS ---
Examination: Venous duplex lower extremity sonogram, bilateral. Date and time of exam: December 30, 2023 10:00 PM Indications: Bilateral lower leg swelling and pain beginning several weeks ago Technique: Multiple sonographic images of the deep venous system have been obtained. B-mode/2-D grayscale imaging of vascular structures and Doppler spectral analysis (waveforms) and color performed Both legs are examined. Findings: Deep venous systems do not demonstrate abnormal echogenicity. All visualized deep veins exhibit compressibility. All visualized deep veins exhibit augmentation. Impression: Negative for deep vein thrombosis
[2023-12-30] MEDS: SODIUM CHLORIDE 0.9% IV (21:01)
[2023-12-30] MEDS: VANCOMYCIN IV (21:01)
--- NOTE | 2023-12-30 21:12 | ESHP_ITS ---
Addendum History & Physical Addendum Date of report being addended: 12/30/23 Narrative: Attending's attestation: I reviewed labs, imaging, EKG, home medications and prior available records. Face to face evaluation was performed by me. I have personally examined the patient and discussed assessment and plan with the IM team. I reviewed the resident note and agree with the plan with exceptions as below. 48-year-old female with history of uncontrolled diabetes mellitus type 2 on insu alejandra complicated with right foot osteomyelitis status post debridement and toe amputation, retinopathy/legally blind, history of substance abuse including methamphetamine, hypertension, CKD stage IIIb likely in setting of diabetic nephropathy and hypertensive nephrosclerosis, renal cell carcinoma status post nephrectomy, who presented with a chief complaint of worsening left big toe pain and purulent discharge in addition to worsening shortness of breath over 2 days. She was found to have osteomyelitis of left big toe, anasarca, hypertensive urgency, bilateral pleural effusions R>L and KIM on CKD. Osteomyelitis of left foot: In the setting of history of uncontrolled diabetes mellitus and history of osteomyelitis status post toe amputation. Examination of earlier showed gangrenous tissue with purulent discharge. Started the patient on Zosyn renally dosed and vancomycin pharmacy to dose. Start wound care. Consult surgery for debridement/possible amputation. Anasarca: Likely in the setting of nephrotic syndrome versus new onset CHF. She has elevated BNP, significant edema in both upper and lower extremities in addition to periorbital edema which happens more in nephrotic patients. She also does have bilateral pleural effusions more on the right. Will start IV Lasix and monitor I's and O's. Start fluid restriction of 1200 cc/day. Will obtain echocardiogram. Will consult nephrology for possible nephrotic syndrome. Will obtain IR guided pleurocentesis of both lungs and send the fluid for analysis to determine whether it is transudative versus exudative and to rule out infected pleural effusion. KIM on CKD stage IIIb: Could be in the setting of nephrotic syndrome versus cardiorenal in the setting of new onset CHF. Could also be progression of CKD in the setting of uncontrolled hypertension and type 2 diabetes mellitus. Diuresis as above. Monitor kidney function. Avoid nephrotoxins. Renally dose medications. Consulted nephrology. Bilateral pleural effusions: Right more than the left. Pleurocentesis as above. Follow-up pleural fluid analysis. Hypertensive urgency: Give IV hydralazine 10 mg one-time. Restart home amlodipine. Start p.o. hydralazine. Resume home amlodipine. Monitor BP. Appreciate nephrology recommendations.
--- NOTE | 2023-12-30 21:15 | ESHP_ITS ---
Documentation for date of: 12/30/23 HPI History of Present Illness History of present illness: Tati Costa is a 48-year-old female with past medical history of type 2 diabetes mellitus (insulin-dependent), hypertension, kidney cancer status post partial nephrectomy, and history of right foot osteomyelitis status post debridement and amputations now presents with shortness of breath and left great toe pain. Patient states that she has been short of breath for last couple of days, endorsing orthopnea and PND with associated bilateral lower extremity edema, bilateral upper extremity edema, and swelling around the eyes and tongue. She denies chest pain, pressure, and tightness. Also reports pain in left great toe initially with purulent drainage, now with serosanguineous material on bed sheets in ED. Denies fever and chills but endorses sweats. Otherwise denies dysuria, hematuria, or foul-smelling urine. ED course: BP 170/96, HR 104, O2 93% on room air (improved to 97% on 4 L NC) WBC 10.9, Hgb 8.8 (BL ~11), BUN 48, Cr 3.0 (BL ~1.5), GFR 18 ALP 333, troponin negative, BNP 165, UA: protein, blood CXR: Heart failure pattern, bibasilar pneumonia, moderate left and large right pleural effusions XR left foot: Significant osteo of distal phalanx of first digit Given one-time dose of Zosyn and Vanco, morphine 4 mg x 1 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, no cigarettes or EtOH consumption PSHx: Remittent and amputation of multiple phalanx of her right foot Review of Systems Review of Systems Systems Reviewed: All systems reviewed, normal except as documented Exam Vital Signs Temp Pulse Resp BP Pulse Ox O2 Del Method O2 Flow Rate 98.2 F 105 H 19 181/102 H 97 Nasal Cannula 4 12/30/23 19:54 12/30/23 21:04 12/30/23 21:04 12/30/23 21:04 12/30/23 21:04 12/30/23 21:04 12/30/23 21:04 Narrative Exam General: swelling around eyes, AOx3, no acute distress, able to speak full sentences HEENT: NC/AT, mucous membranes moist, bilateral sclera anicteric Cardiovascular: regular rate and rhythm, S1/S2 present, no murmurs appreciated Pulmonary: clear to auscultation bilaterally, no rales/rhonchi/wheezes Abdominal: obese, soft, non-tender, no rebound/guarding, normal bowel sounds present Musculoskeletal: -bilateral lower extremity pitting edema to shins -bilateral upper extremity non-pitting edema in hands -left hallux: erythematous, swollen, draining serosanguineous material Skin: warm and dry, intact, no rashes Neuro: CN II-XII intact, no focal deficits Results: Labs 12/31/23 04:30 12/31/23 04:30 Labs: Short CBC 12/30/23 Range/Units 16:28 WBC 10.9 (3.6-11.0) Thou/mm3 Hgb 8.8 L (12.0-16.0) g/dL Hct 28.8 L (36.0-46.0) % Plt Count 364 (140-440) Thou/mm3 BMP 12/30/23 16:28 Sodium 138 Potassium 4.6 Chloride 112 H Carbon Dioxide 19.0 L BUN 48 H Creatinine 3.0 H Glucose 80 Calcium 8.8 Cardiac Enzymes 12/30/23 Range/Units 16:28 Troponin I < 0.020 (0.0-0.045) ng/mL Liver Function 12/30/23 Range/Units 16:28 Total Bilirubin 0.2 L (0.3-1.2) mg/dL AST 24 (0-34) U/L ALT 32 (10-49) U/L Alkaline Phosphatase 333 H (46-116) U/L Albumin 3.6 (3.5-5.0) gm/dL Urine 12/30/23 Range/Units 19:51 Urine Color Lt-Yellow (Lt Yel-Yel) Urine Clarity Clear (Clear/Hazy) Urine pH 6.5 (5.0-7.0) Ur Specific [place] 1.020 (1.001-1.035) Urine Protein 3+ A (Neg - Trace) Urine Glucose (UA) 2+ A (Negative) Quality Measures Quality Measures none Medications Home Medications and Allergies Home Medications ?Medication ?Instructions ?Recorded ?Confirmed ?Type gabapentin 600 mg tablet 1,200 mg PO TID 06/16/20 12/30/23 History Allergies Allergy/AdvReac Type Severity Reaction Status Date / Time No Known Allergies Allergy Verified 06/06/23 15:59 Visit Medications Acetaminophen (Acetaminophen 325 Mg Tablet) 650 mg PO Q6H PRN PRN Reason: PAIN OR FEVER > 101 Stop: 01/29/24 20:51 Hydrocodone Bitart/Acetaminophen (Hydrocodone/Apap 5/325 Tablet) 1 tab PO Q6HR PRN PRN Reason: PAIN SCALE 4-10(Mod-Sev Stop: 01/04/24 20:51 Amlodipine Besylate (Amlodipine Besylate 5 Mg Tablet) 10 mg PO QDAY [facility] Stop: 01/30/24 08:59 Dextrose (Dextrose 50%-Water Inj 50 Ml Syringe) 25 ml IV Q15MIN PRN PRN Reason: BG 50-70 responsive npo pt Stop: 01/29/24 21:04 Dextrose (Dextrose 50%-Water Inj 50 Ml Syringe) 50 ml IV Q15MIN PRN PRN Reason: BG <50 OR BG <70 & pt unresponsive Stop: 01/29/24 21:04 Furosemide (Furosemide Inj 10 Mg/Ml 4ml Vial) 40 mg IVP QDAY [facility] Stop: 01/30/24 08:59 Glucagon (Glucagon Inj 1 Mg Vial) 1 mg IM Q15MIN PRN PRN Reason: BG <70, and no IV access Heparin Sodium (Porcine) (Heparin Sod Inj 5000 Unit/Ml Vial) 5,000 unit SC Q12HR KARY Stop: 01/14/24 08:59 Hydralazine HCl (Hydralazine Hcl 25 Mg Tablet) 25 mg PO TID [facility] Stop: 01/30/24 08:59 Insulin Human Lispro (Insulin Lispro (Admelog) 1 Unit/0.01 Ml Unit) 0 unit SC [facility]; Protocol Stop: 01/30/24 07:29 Ondansetron HCl (Ondansetron Inj 2 Mg/Ml Inj 2 Ml) 4 mg IV Q6H PRN; Protocol PRN Reason: NAUSEA OR VOMITING Stop: 01/29/24 20:51 Pantoprazole Sodium (Pantoprazole 40 Mg Tablet) 40 mg PO QDAY [facility] Stop: 01/30/24 08:59 Sennosides (Senna Tablet) 1 tab PO QDAY [facility]; Protocol Stop: 01/30/24 08:59 Discontinued Medications Dexamethasone Sodium Phosphate (Dexamethasone Sod Phos Inj 10 Mg/Ml Vial) 10 mg IM X1 ONE Stop: 12/30/23 16:12 Last Admin: 12/30/23 16:23 Dose: 10 mg Diphenhydramine HCl (Diphenhydramine 25 Mg Capsule) 25 mg PO X1 ONE Stop: 12/30/23 16:03 Last Admin: 12/30/23 16:09 Dose: 25 mg Famotidine (Famotidine 20 Mg Tablet) 40 mg PO X1 ONE Stop: 12/30/23 16:03 Last Admin: 12/30/23 16:09 Dose: 40 mg Furosemide (Furosemide Inj 10 Mg/Ml 4ml Vial) 40 mg IVP X1 ONE Stop: 12/30/23 21:06 Hydralazine HCl (Hydralazine Inj 20 Mg/Ml Vial) 10 mg IV X1 ONE Stop: 12/30/23 21:04 Piperacillin Sod/Tazobactam (Sod 3.375 gm/ Sodium Chloride) 50 mls @ 100 mls/hr IV X1 ONE Stop: 12/30/23 20:35 Last Infusion: 12/30/23 20:52 Dose: Infused Vancomycin HCl 500 mg/ Sodium (Chloride) 100 mls @ 100 mls/hr IV X1 ONE Stop: 12/30/23 21:15 Last Admin: 12/30/23 21:01 Dose: 100 mls/hr Piperacillin/Tazobactam/Dextrose (Zosyn) 50 mls @ 12.5 mls/hr IV Q8HR [facility] Stop: 01/07/24 05:59 Doxycycline Hyclate 100 mg/ (Sodium Chloride) 100 mls @ 100 mls/hr IV BID [facility] Stop: 01/06/24 20:59 Piperacillin/Tazobactam/Dextrose (Zosyn) 50 mls @ 100 mls/hr IV X1 ONE Stop: 12/30/23 21:44 Insulin Glargine (Insulin Glargine (Lantus) 5 Unit/0.05 Ml (Per 5 Units)) 10 unit SC X1 ONE Stop: 12/31/23 09:01 Morphine Sulfate (Morphine Sulf Inj 10 Mg/Ml Vial) 4 mg IVP X1 ONE Stop: 12/30/23 20:07 Last Admin: 12/30/23 20:20 Dose: 4 mg Ondansetron HCl (Ondansetron Inj 2 Mg/Ml Inj 2 Ml) 4 mg IV X1 ONE; Protocol Stop: 12/30/23 20:07 Last Admin: 12/30/23 20:19 Dose: 4 mg Assessment & Plan Plan Tati Costa is a 48-year-old female with past medical history of type 2 diabetes mellitus (insulin-dependent), hypertension, kidney cancer status post partial nephrectomy, and history of right foot osteomyelitis status post debridement and amputations admitted for CHF and left great toe osteomyelitis work-up and management. # ?New onset CHF #Anasarca Presents with shortness of breath, orthopnea, PND, and anasarca. BNP mildly elevated at 165, troponin negative. CXR showed signs of HF and bilateral pleural effusions. Echo 06/22/2023: EF 60- 65%, trace MR, AR, and mild TR. Will defer home carvedilol in light of possible new onset CHF. -Lasix 40 mg IV daily -Follow-up echo -Fluid restriction (1.2 L), catheter placed for strict I/O -US-guided thoracentesis with fluid studies ordered -Serum LDH ordered -Follow-up Mg and K and replete as needed #Osteomyelitis, left great toe #History of osteomyelitis, right foot -General surgery consulted, appreciate recommendations -NPO -Doxycycline 100 mg IV BID -Zosyn 2.25 g IV q8hr -Pain: norco 5 as needed -Follow-up blood culture #Acute on chronic kidney injury #CKD stage IV # ?Nephrotic syndrome Defer IVF due to possible CHF exacerbation/fluid overload status. -Nephrology consulted -Follow-up US of kidneys #Type 2 diabetes mellitus, insulin-dependent A1c 11% 05/2023. Initial glucose 80. -SSI lispro -Will start with 10 units glargine (patient home lantus 30 units daily) -Follow-up A1c #Hypertension #Hypertensive urgency Will resume home amlodipine despite edematous state given BP as high as 187/104. -Amlodipine 10 mg daily -Hydralazine 25 mg TID Hospital management: Disposition: pending surgical evaluation Fluids: deferred given fluid overload Diet: NPO Lines: peripheral DVT prophylaxis: heparin SC; will switch to SCDs if Doppler (-) for DVT GI prophylaxis: pantoprazole 40 mg PO daily Corral: placed for strict I/O CODE STATUS: full code ----- Plan discussed with attending physician Dr. Jazmine Nguyen MD PGY-1 Internal Medicine Attending Provider Attestation/Addendum I reviewed labs, imaging, EKG, home medications and prior available records. Face to face evaluation was performed by me. I have personally examined the patient and discussed assessment and plan with the IM team. I reviewed the resident note and agree with the plan with exceptions as below. 48-year-old female with history of uncontrolled diabetes mellitus type 2 on insulin complicated with right foot osteomyelitis status post debridement and toe amputation, retinopathy/legally blind, history of substance abuse including methamphetamine, hypertension, CKD stage IIIb likely in setting of diabetic nephropathy and hypertensive nephrosclerosis, renal cell carcinoma status post nephrectomy, who presented with a chief complaint of worsening left big toe pain and purulent discharge in addition to worsening shortness of breath over 2 days. She was found to have osteomyelitis of left big toe, anasarca, hypertensive urgency, bilateral pleural effusions R>L and KIM on CKD. Osteomyelitis of left foot: In the setting of history of uncontrolled diabetes mellitus and history of osteomyelitis status post toe amputation. Examination of earlier showed gangrenous tissue with purulent discharge. Started the patient on Zosyn renally dosed and vancomycin pharmacy to dose. Start wound care. Consult surgery for debridement/possible amputation. Anasarca: Likely in the setting of nephrotic syndrome versus new onset CHF. She has elevated BNP, significant edema in both upper and lower extremities in addition to periorbital edema which happens more in nephrotic patients. She also does have bilateral pleural effusions more on the right. Will start IV Lasix and monitor I's and O's. Start fluid restriction of 1200 cc/day. Will obtain echocardiogram. Will consult nephrology for possible nephrotic syndrome. Will obtain IR guided pleurocentesis of both lungs and send the fluid for analysis to determine whether it is transudative versus exudative and to rule out infected pleural effusion. KIM on CKD stage IIIb: Could be in the setting of nephrotic syndrome versus cardiorenal in the setting of new onset CHF. Could also be progression of CKD in the setting of uncontrolled hypertension and type 2 diabetes mellitus. Diuresis as above. Monitor kidney function. Avoid nephrotoxins. Renally dose medications. Consulted nephrology. Bilateral pleural effusions: Right more than the left. Pleurocentesis as above. Follow-up pleural fluid analysis. Hypertensive urgency: Give IV hydralazine 10 mg one-time. Restart home amlodipine. Start p.o. hydralazine. Resume home amlodipine. Monitor BP. Appreciate nephrology recommendations.
--- NOTE | 2023-12-30 21:19 | XR_ITS ---
Examination: Retroperitoneal ultrasound, complete Technique: Multiple high resolution grayscale images of the retroperitoneum obtained, including kidneys and bladder. Exam date and time:December 30, 2023 1017 hrs. Indications: Acute renal insufficiency superimposed on chronic kidney disease this week Findings: Right kidney 12.3 x 7.2 x 7.1 cm cortex 2.2 cm Right kidney 11.8 x 6.2 x 5.7 cm cortex 2.3 cm No hydronephrosis or renal calculi No bladder mass Bladder prevoid volume 2 87 cc unable to void Impression: No hydronephrosis or renal calculi
[2023-12-30] MEDS: FUROSEMIDE INJ 10 MG/ML 4ML VIAL 40 MG IVP (21:25)
[2023-12-30] MEDS: hydrALAZINE INJ 20 MG/ML VIAL 10 MG IV (21:25)
--- NOTE | 2023-12-30 21:57 | PC.NURSE ---
patient was taken to ultrasound by tech.
[2023-12-30] MEDS: DOXYCYCLINE INJ 100 MG in SODIUM CHLORIDE 0.9% (P) 100 ML IV (22:44)
[2023-12-30] MEDS: GABAPENTIN 300 MG CAPSULE PO (22:44)
[2023-12-30] MEDS: HYDROcodone/APAP 5/325 TABLET 1 TAB PO (22:47)
[2023-12-31] VITALS (22 sets, daily range): BP systolic 108–187; BP diastolic 63–106; PULSE 84–106; RESP 12–93; TEMP 36.4–37.2; O2SAT 95–97; BMI 40.9
[2023-12-31] MEDS: hydrOXYzine HCL 25 MG TABLET PO ×2 (00:28→21:09)
--- NOTE | 2023-12-31 00:28 | PC.NURSE ---
Called Dr. Coppola due to patients blood pressure being 187/104. Provider [address] place order for blood pressure medication.
[2023-12-31] MEDS: NITROGLYCERIN 0.4 MG SUBL BTL #25 SL (00:44)
[2023-12-31] MEDS: NITROGLYCERIN OINT 2% 1 INCH PACKET TOP (01:22)
[2023-12-31] MEDS: FUROSEMIDE INJ 10 MG/ML 4ML VIAL 20 MG IVP (01:22)
[2023-12-31 04:54] LABS: Basophils # (Auto) 0.1 Thou/mm3 (0.0-0.2); Basophils % (Auto) 0 % (0-2.5); Eosinophils % (Auto) 0 % (0-10); Hematocrit 27.2 % (36.0-46.0); Hemoglobin 8.4 g/dL (12.0-16.0); Immature Granulocytes % (Auto) 4 % (0-0); Immature Granulocytes Auto 0.43 Thou/mm3 (0.00-0.00); Lymphocytes # (Auto) 0.5 Thou/mm3 (1.0-4.8); Lymphocytes % (Auto) 5 % (10-50); Mean Corpuscular HGB Conc 30.9 g/dl (31.0-37.0); Mean Corpuscular Hemoglobin 28.9 pg (25.0-35.0); Mean Corpuscular Volume 94 fL (80-100); Monocytes # (Auto) 0.1 Thou/mm3 (0.0-0.8); Monocytes % (Auto) 1 % (0-12); Neutrophils # (Auto) 10.4 Thou/mm3 (1.8-7.7); Neutrophils % (Auto) 90 % (37-80); Nucleated Red Blood Cell % 0 /100 WBC (0); Platelet Count 355 Thou/mm3 (140-440); RDW Standard Deviation 46.4 fL (36.4-46.3); Red Blood Count 2.91 Miln/mm3 (4.00-5.20); White Blood Count 11.5 Thou/mm3 (3.6-11.0)
[2023-12-31 05:12] LABS: Partial Thromboplastin Time 28.9 Seconds (22.0-36.0); Prothrombin Time 11.1 Seconds (9.0-12.2)
[2023-12-31 05:16] LABS: Glucose Estimated Average 232 mg/dL (80-131); Hemoglobin A1C 9.7 % Hgb (4.8-6.0)
[2023-12-31 05:28] LABS: Alanine Aminotransferase 47 U/L (10-49); Albumin, Serum 3.2 gm/dL (3.5-5.0); Albumin/Globulin Ratio 0.9 (1.2-2.2); Alkaline Phosphatase 391 U/L (46-116); Anion Gap 8 (7-16); Aspartate Amino Transferase 48 U/L (0-34); BUN/Creatinine Ratio 18 Ratio (12-20); Bilirubin,Total 0.2 mg/dL (0.3-1.2); Blood Urea Nitrogen 54 mg/dL (9-23); Calcium 8.7 mg/dL (8.3-10.6); Calcium (Corrected) 9.3 mg/dL (8.5-10.1); Carbon Dioxide 17.2 mMol/L (20.0-31.0); Chloride 111 mMol/L (98-107); Estimated Creatinine Clearance 27.5 mL/min (>60); Globulin 3.5 gm/dL (2.3-3.5); Glucose 345 mg/dL (74-106); Magnesium 1.7 mg/dL (1.6-2.6); Osmolality,Calculated 300 (275-295); Phosphorous 6.5 mg/dL (2.4-5.1); Potassium 5.8 mMol/L (3.4-5.1); Sodium 136 mMol/L (136-145); Thyroid Stimulating Hormone 1.14 uIU/mL (0.55-4.78); Total Protein 6.7 gm/dL (5.7-8.2); eGFR 18 See Note
[2023-12-31] MEDS: GABAPENTIN 300 MG CAPSULE PO ×3 (06:34→21:09)
--- NOTE | 2023-12-31 07:30 | PC.NURSE ---
in to assess pt. pt resting quietly at this time without any complaints. v/s assessed and stable. call light is within reach. plan to admit, plan of care ongoing.
--- NOTE | 2023-12-31 07:31 | PD.SURCONS ---
HPI Consult details Consult date: 12/31/23 Reason for consultation narrative: Left foot osteomyelitis History of present illness: 48-year-old female with history of diabetes, diabetic nephropathy, peripheral neuropathy and methamphetamine use has had multiple amputation on the right foot in the past due to diabetic foot infection. She was admitted with shortness of breath, edema and pain in her left first toe. X-ray revealed osteomyelitis. She denies history of trauma. Review of Systems Constitutional Constitutional: Denies chills and Denies fever(s) Cardiovascular Cardiovascular: Denies chest pain and Reports dyspnea Respiratory Respiratory: Reports dyspnea Gastrointestinal Gastrointestinal: Denies abdominal pain, Denies nausea and Denies vomiting Hematologic/Lymphatic Hematologic/Lymphatic: Denies easy bleeding and Reports easy bruising Past Medical History Surgical History OTHER SURGICAL HX: Multiple right toe amputations, , cholecystectomy, partial nephrectomy Meds Home Medications and Allergies Home Medications ?Medication ?Instructions ?Recorded ?Confirmed ?Type gabapentin 600 mg tablet 1,200 mg PO TID 06/16/20 12/30/23 History Allergies Allergy/AdvReac Type Severity Reaction Status Date / Time No Known Allergies Allergy Verified 06/06/23 15:59 Exam Vital Signs Temp Pulse Resp BP Pulse Ox O2 Del Method O2 Flow Rate 98.9 F 94 12 152/80 H 96 Nasal Cannula 4 12/31/23 06:04 12/31/23 06:04 12/31/23 06:04 12/31/23 06:04 12/31/23 06:04 12/31/23 06:04 12/31/23 06:04 Constitutional Constitutional: no acute distress Routine Extremities Exam Comments: She has palpable dorsalis pedis and posterior tibial pulses on the left side. Left first toe is very edematous with purpleish discoloration and erythema Assessment & Plan Problem List (1) Osteomyelitis of great toe: Status: Acute Plan Keep n.p.o. after midnight and plan for left first toe amputation tomorrow. Risks include but not limited to infection, bleeding, chronic nonhealing wound, injury to surround neurovascular structures, possible need for future amputation, pneumonia and blood clot discussed with the patient. Benefits and alternatives explained to her, all her questions answered, she agreed and consented to proceed with the operation.
--- NOTE | 2023-12-31 07:57 | PD.RESPRO ---
Documentation for date of: 12/31/23 Subjective Subjective Interval history: A 48-year-old female with past medical history of type 2 diabetes mellitus (insulin-dependent), hypertension, kidney cancer status post partial nephrectomy, and history of right foot osteomyelitis status post debridement and amputations admitted for CHF and left great toe osteomyelitis work-up and management.Patient seen and examined at bedside. She endorses cough with deep inhalation and coughs with auscultation of lungs. Left hand feels more swollen than right hand per patient. She had tongue swelling and b/l swelling around her eyes that has improved today with medicine. Agressively diuresis and continue managing HTN. Exam Vital Signs Temp Pulse Resp BP Pulse Ox O2 Del Method O2 Flow Rate 98 F 99 19 159/99 H 97 Nasal Cannula 2 12/31/23 07:30 12/31/23 07:30 12/31/23 07:30 12/31/23 07:30 12/31/23 07:30 12/31/23 07:30 12/31/23 07:30 Narrative Exam Constitutional: well-developed, well-nourished, legally blind in both eyes, lying in bed. HEENT: NCAT, EOMI, reactive round pupils b/l, patent nares b/l, on 2L nasal cannula Lung: CTAB, no wheezing, no rhonchi, no crackles, diminished breath sounds of lower lobes bilaterally Heart: Regular S1S2, no murmurs, gallops, or rubs Abdomen: Soft, non-distended, non-tender, +++bowel sounds, central obesity present. Extremities: No cyanosis, clubbing, 1+ nonpitting edema of left leg, dorsalis pedis pulses present b/l Urogen: Corral catheter actively draining urine Neurologic: No focal sensory or motor deficits noted, AOx2, appropriate affect Skin: Warm, dry, no lesions or rashes noted Objective Labs 12/31/23 04:30 12/31/23 11:11 Labs: Laboratory Results - last 24 hr 12/30/23 12/30/23 12/31/23 16:28 19:51 04:30 WBC 10.9 11.5 H RBC 3.00 L 2.91 L Hgb 8.8 L 8.4 L Hct 28.8 L 27.2 L MCV 96 94 MCH 29.3 28.9 MCHC 30.6 L 30.9 L RDW Std Deviation 48.5 H 46.4 H Plt Count 364 355 Neut % (Auto) 76 90 H Lymph % (Auto) 11 5 L [place] % (Auto) 10 1 Eos % (Auto) 1 0 Baso % (Auto) 1 0 Neut # (Auto) 8.4 H 10.4 H Lymph # (Auto) 1.2 0.5 L [place] # (Auto) 1.1 H 0.1 Eos # (Auto) 0.1 0.0 Baso # (Auto) 0.1 0.1 Immature Gran # (Auto) 0.12 H 0.43 H Absolute Nucleated RBC 0.00 0.00 Immature Gran % 1 H 4 H Nucleated RBC % 0 0 PT 10.6 11.1 INR 1.0 1.0 APTT 30.1 28.9 Sodium 138 136 Potassium 4.6 5.8 H D Chloride 112 H 111 H Carbon Dioxide 19.0 L 17.2 L Anion Gap 7 8 BUN 48 H 54 H Creatinine 3.0 H 3.0 H Estim Creat Clear Calc 27.5 L 27.5 L eGFR 18 L 18 L BUN/Creatinine Ratio 16 18 Glucose [address] Glu mg/dL 232 H Hemoglobin A1c 9.7 H Calculated Osmolality 287 300 H Lactic Acid 1.4 Calcium 8.8 8.7 Corrected Calcium 9.1 9.3 Phosphorus 6.5 H Magnesium 1.8 1.7 Total Bilirubin 0.2 L 0.2 L AST 24 48 H ALT 32 47 Alkaline Phosphatase 333 H 391 H D Troponin I < 0.020 B-Natriuretic Peptide 165 H Total Protein 7.3 6.7 Albumin 3.6 3.2 L Globulin 3.7 H 3.5 Albumin/Globulin Ratio 1.0 L 0.9 L Procalcitonin 0.18 TSH 1.14 Ur Collection Type Clean Catch Urine Color Lt-Yellow Urine Clarity Clear Urine pH 6.5 Ur Specific Pfe[place] 1.020 Urine Protein 3+ A Urine Glucose (UA) 2+ A Urine Ketones Negative Urine Blood 2+ A Urine Nitrite Negative Urine Bilirubin Negative Urine Urobilinogen (Auto) Negative Ur Leukocyte Esterase Negative Urine RBC 7 H Urine WBC 3 Ur Squamous Epith Cells 1 Urine Bacteria None Ur Culture Indicated? Not Indicated Quality Measures Quality Measures none Assessment & Plan Assessment Current Active Medications: Generic Name Dose Route Start Last Admin Trade Name Freq PRN Reason Stop Dose Admin Acetaminophen 650 mg 12/30/23 20:52 Acetaminophen 325 Mg Tablet PO 01/29/24 20:51 Q6H PRN PAIN OR FEVER > 101 Hydrocodone Bitart/Acetaminophen 1 tab 12/30/23 20:52 12/30/23 22:47 Hydrocodone/Apap 5/325 Tablet PO 01/04/24 20:51 1 tab Q6HR PRN Administration PAIN SCALE 4-10(Mod-Sev Amlodipine Besylate 10 mg 12/31/23 09:00 Amlodipine Besylate 5 Mg Tablet PO 01/30/24 08:59 QDAY KARY Dextrose 25 ml 12/30/23 21:05 Dextrose 50%-Water Inj 50 Ml Syringe IV 01/29/24 21:04 Q15MIN PRN BG 50-70 responsive npo pt Dextrose 50 ml 12/30/23 21:05 Dextrose 50%-Water Inj 50 Ml Syringe IV 01/29/24 21:04 Q15MIN PRN BG <50 OR BG <70 & pt unresponsive Furosemide 40 mg 12/31/23 09:00 Furosemide Inj 10 Mg/Ml 4ml Vial IVP 01/30/24 08:59 QDAY KARY Gabapentin 300 mg 12/30/23 22:00 12/31/23 06:34 Gabapentin 300 Mg Capsule PO 01/29/24 21:59 300 mg TID KARY Administration Glucagon 1 mg 12/30/23 21:05 Glucagon Inj 1 Mg Vial IM Q15MIN PRN BG <70, and no IV access Heparin Sodium (Porcine) 5,000 unit 12/31/23 09:00 Heparin Sod Inj 5000 Unit/Ml Vial SC 01/14/24 08:59 Q12HR KARY Hydralazine HCl 25 mg 12/31/23 09:00 Hydralazine Hcl 25 Mg Tablet PO 01/30/24 08:59 TID KARY Hydroxyzine HCl 25 mg 12/31/23 00:07 12/31/23 00:28 Hydroxyzine Hcl 25 Mg Tablet PO 01/30/24 00:06 25 mg HS PRN Administration insom Piperacillin/Tazobactam/Dextrose 2.25 gm in 50 mls @ 100 mls/hr 12/31/23 04:00 Zosyn IV 01/07/24 03:59 Q8HR [facility] Doxycycline Hyclate 100 mg/ 100 mls @ 100 mls/hr 12/31/23 09:00 Sodium Chloride IV 01/07/24 08:59 BID [facility] Insulin Glargine 10 unit 12/31/23 09:00 Insulin Glargine (Lantus) 5 Unit/0.05 Ml (Per 5 Units) SC 01/30/24 08:59 DAILY [facility] Insulin Human Lispro 0 unit 12/31/23 11:30 Insulin Lispro (Admelog) 1 Unit/0.01 Ml Unit SC 01/30/24 11:29 [facility] Protocol Ondansetron HCl 4 mg 12/30/23 20:52 Ondansetron Inj 2 Mg/Ml Inj 2 Ml IV 01/29/24 20:51 Q6H PRN NAUSEA OR VOMITING Protocol Pantoprazole Sodium 40 mg 12/31/23 09:00 Pantoprazole 40 Mg Tablet PO 01/30/24 08:59 QDAY [facility] Sennosides 1 tab 12/31/23 09:00 Senna Tablet PO 01/30/24 08:59 QDAY [facility] Protocol
--- NOTE | 2023-12-31 08:00 | XR_ITS ---
Examination: Ultrasound right hemithorax Ultrasound left hemithorax Exam date and time: December 31, 2023 1202 hours INDICATIONS: Shortness of breath this week, chest x-ray December 30, 2023 heart failure with pleural fluid technique and findings: Multiple high resolution grayscale sonographic images right and left hemithoraces Small bilateral pleural effusions IMPRESSION: Small bilateral pleural effusions, insufficient for safe thoracentesis
[2023-12-31 09:18] LABS: Amphetamine/Methamp Scrn,U Positive (Negative); Barbiturate Screen,Urine Negative (Negative); Benzodiazepines Screen,Urine Negative (Negative); Benzoylecgonine Screen, Ur Negative (Negative); Fentanyl Screen,Urine Negative (Negative); Opiate Screen,Urine Positive (Negative); THC Screen,Urine Positive (Negative)
--- NOTE | 2023-12-31 09:20 | PC.NURSE ---
breakfast tray provided.
[2023-12-31] MEDS: PIPER/TAZO 3.375 GM 50 ML IV (09:22)
[2023-12-31] MEDS: hydrALAZINE HCL 25 MG TABLET PO ×3 (09:25→21:09)
[2023-12-31] MEDS: amLODIPine BESYLATE 5 MG TABLET 10 MG PO (09:26)
[2023-12-31] MEDS: SENNA TABLET 1 TAB PO (09:27)
[2023-12-31] MEDS: PANTOPRAZOLE 40 MG TABLET PO (09:27)
[2023-12-31] MEDS: HYDROcodone/APAP 5/325 TABLET 1 TAB PO ×2 (09:28→15:54)
[2023-12-31] MEDS: FUROSEMIDE INJ 10 MG/ML 4ML VIAL 40 MG IVP ×3 (09:28→22:21)
[2023-12-31] MEDS: HEPARIN SOD INJ 5000 UNIT/ML VIAL SC (09:30)
[2023-12-31 09:38] LABS: Cardiac Risk Estimate 3.1 RATIO (3.7-5.6); Cholesterol 201 mg/dL (132-200); HDL Cholesterol 64 mg/dL (40-60); LDH (Lactate Dehydrogenase) 215 U/L (120-246); LDL Cholesterol,Calculated 118 mg/dL (0-130); Triglycerides 95 mg/dL (30-150)
[2023-12-31] MEDS: INSULIN GLARGINE (Lantus) 5 UNIT/0.05 ML (PER 5 UNITS) 10 UNIT SC (09:38)
[2023-12-31] MEDS: DOXYCYCLINE INJ 100 MG in SODIUM CHLORIDE 0.9% (P) 100 ML IV (10:13)
--- NOTE | 2023-12-31 10:55 | XR_ITS ---
Examination: MRI left foot, without contrast Date and time of exam: December 31, 2023 1409 hours INDICATIONS: History kidney cancer, left foot wound after falling 3 weeks ago increasing pain in the first digit Technique: Multiple axial sagittal and coronal images of the left foot have been obtained with the Siemens high-resolution 1.5 Génesis MRI scanner. Images obtained include T2-weighted fat-suppressed sagittal sections, TR 3500, TE 46, T2 weighted coronal fat suppressed images, TR 3050, TE 84, T2-weighted transverse fat suppressed images, TR 3260, TE 63, proton density transverse images, TR 4720 TE 46, and T1 weighted coronal images, TR 560, TE 13. Findings: Prominent bone destruction involving most of the distal phalanx first digit Also cortical bone destruction and marrow edema involving the dorsal shaft of the proximal phalanx first digit No soft tissue abscess No pathologic fracture Diffuse edema surrounding the first digit and dorsum of the foot IMPRESSION: Osteomyelitis proximal and distal phalanges first digit
--- NOTE | 2023-12-31 11:15 | PC.OT ---
admitting providers at bedside.
--- NOTE | 2023-12-31 11:15 | EDRME_ITS ---
Rapid Medical Screening Exam RME Arrival date/time: 12/30/23 15:35 --- DR. MCCONNELL MAIN ED EVALUATION: 48-year-old female with past medical history diabetes mellitus type 2 on insulin, hypertension, polysubstance use disorder, history of kidney cancer status post partial nephrectomy, and legally blind presents emergency department complaining of left foot wound after falling 3 weeks ago in the shower. Patient states that in the last 3 days she started having increasing pain in her big left toe. Current drainage that started the last few days. The patient can see if she was told by her family member that is starting to leak none yellow drainage. Chief Complaint: Allergic Reaction Time Seen by Provider: 12/30/23 18:13 Vital signs: Vital Signs Temperature 98.0 F 12/30/23 15:50 Pulse Rate 104 H 12/30/23 15:50 Respiratory Rate 18 12/30/23 15:50 Blood Pressure 170/96 H 12/30/23 15:50 Pulse Oximetry (%) 93 L 12/30/23 15:50 Oxygen Delivery Method Room Air 12/30/23 15:50 [facility] Narrative: --- DR. MCCONNELL MAIN ED EVALUATION: 48-year-old female with past medical history diabetes mellitus type 2 on insulin, hypertension, polysubstance use disorder, history of kidney cancer status post partial nephrectomy, and legally blind presents emergency department complaining of left foot wound after falling 3 weeks ago in the shower. Patient states that in the last 3 days she started having increasing pain in her big left toe. Current drainage that started the last few days. The patient can see if she was told by her family member that is starting to leak none yellow drainage.
[2023-12-31 11:35] LABS: Anion Gap 10 (7-16); BUN/Creatinine Ratio 17 Ratio (12-20); Blood Urea Nitrogen 51 mg/dL (9-23); Calcium 8.8 mg/dL (8.3-10.6); Carbon Dioxide 16.3 mMol/L (20.0-31.0); Chloride 110 mMol/L (98-107); Estimated Creatinine Clearance 27.5 mL/min (>60); Glucose 329 mg/dL (74-106); Osmolality,Calculated 298 (275-295); Potassium 5.5 mMol/L (3.4-5.1); Sodium 136 mMol/L (136-145); eGFR 18 See Note
[2023-12-31 11:41] LABS: Protein Total, Random Urine 449 mg/dL (1-14)
[2023-12-31] MEDS: INSULIN LISPRO (AdmeLOG) 1 UNIT/0.01 ML UNIT SC ×2 (11:57→18:23)
[2023-12-31] MEDS: DOXYCYCLINE 100 MG TABLET PO (11:58)
--- NOTE | 2023-12-31 12:00 | PC.NURSE ---
per darius leyva to give PO meds with sips of water.
--- NOTE | 2023-12-31 12:00 | PC.NURSE ---
pt taken to u/s.
[2023-12-31 13:32] LABS: Creatinine,Random Urine 23 mg/dL (30-125); Protein Total, Random Urine 382 mg/dL (1-14)
--- NOTE | 2023-12-31 13:33 | PD.RESCONSUL ---
HPI Data of Consult Requesting Physician: Neri Potter MD Admitting Provider: Tk Lucero MD Attending Provider: Neri Potter MD Primary Care Provider: Physician No Primary/Family Consult Narrative Reason for consult: Osteomyelitis History of present illness: Patient is a 48-year-old female with past medical history type 2 diabetes, Hypertension, kidney cancer status post partial nephrectomy, right foot osteomyelitis status post debridement and amputation that is now presenting with left great toe pain for the past couple of weeks. Patient states that she tripped and fell and hurt her left big toe. She had avoided coming to the ER because she thought it would get better however she came in because she started experiencing drainage from the left big toe. She complains of subjective chills but no fevers. She denies any other associated symptoms including diarrhea, dysuria, cough, chest pain, sob, dizziness or headaches. She is legally blind from uncontrolled comorbidities. Allergies: None Past medical history: As above Past surgical history: C-sections, right third fourth and fifth toe amputations Family history: Hypertension or diabetes on both sides of the family Social history: Lives with her brothers and one of them is her caregiver. Smokes marijuana frequently and uses meth about once a week Infectious disease team was consulted for osteomyelitis of the left great toe as seen on foot x-ray. Patient initially received vancomycin and Zosyn in the ER and the primary team started on doxycycline and continued Zosyn. General surgery was consulted for possible amputation of the toe. Chest x-ray showed bilateral pleural effusions however there was not enough fluid to be removed by ultrasound. cc:: cc: Neri Potter MD Review of Systems Review of Systems Systems Reviewed: All systems reviewed, normal except as documented Exam Vital Signs Temp Pulse Resp BP Pulse Ox O2 Del Method O2 Flow Rate 97.9 F 98 18 157/81 H 96 Nasal Cannula 2 12/31/23 11:10 12/31/23 12:11 12/31/23 12:11 12/31/23 11:10 12/31/23 12:11 12/31/23 11:10 12/31/23 12:11 Narrative Exam Constitutional: Well nourished and in no acute distress Head: Normocephalic/Atraumatic Eyes: PERRL , no conjunctival injection , symmetrical lids. ENMT: Moist Mucous Membranes, No trauma or injury. Neck: Supple to palpation, No JVD CVS: RRR, S1 and S2 present, no murmurs, rubs or gallops . RESP: CTAB, no SOB, no rales, rhonchi or wheezing. No respiratory Distress GI: Large but soft with normal BS, Nontender/Nondistended. MSK: Right foot has amputation of the third fourth and fifth digits. Skin: Left first digit is slightly erythematous with crusted purulent discharge Neuro: fisher mussel II-XII grossly intact. Sensation grossly intact. Psych: (AAO) x3 . Appropriate mood and affect. Results Labs 12/31/23 04:30 12/31/23 11:11 Labs: Short CBC 12/30/23 12/31/23 Range/Units 16:28 04:30 WBC 10.9 11.5 H (3.6-11.0) Thou/mm3 Hgb 8.8 L 8.4 L (12.0-16.0) g/dL Hct 28.8 L 27.2 L (36.0-46.0) % Plt Count 364 355 (140-440) Thou/mm3 BMP 12/30/23 12/31/23 12/31/23 16:28 04:30 11:11 Sodium 138 136 136 Potassium 4.6 5.8 H D 5.5 H Chloride 112 H 111 H 110 H Carbon Dioxide 19.0 L 17.2 L 16.3 L BUN 48 H 54 H 51 H Creatinine 3.0 H 3.0 H 3.0 H Glucose 80 345 H D 329 H Calcium 8.8 8.7 8.8 Cardiac Enzymes 12/30/23 Range/Units 16:28 Troponin I < 0.020 (0.0-0.045) ng/mL Liver Function 12/30/23 12/31/23 Range/Units 16:28 04:30 Total Bilirubin 0.2 L 0.2 L (0.3-1.2) mg/dL AST 24 48 H (0-34) U/L ALT 32 47 (10-49) U/L Alkaline Phosphatase 333 H 391 H D (46-116) U/L Albumin 3.6 3.2 L (3.5-5.0) gm/dL Urine 12/30/23 Range/Units 19:51 Urine Color Lt-Yellow (Lt Yel-Yel) Urine Clarity Clear (Clear/Hazy) Urine pH 6.5 (5.0-7.0) Ur Specific [place] 1.020 (1.001-1.035) Urine Protein 3+ A (Neg - Trace) Urine Glucose (UA) 2+ A (Negative) Quality Measures Quality Measures none Medications Home Medications and Allergies Home Medications ?Medication ?Instructions ?Recorded ?Confirmed ?Type gabapentin 600 mg tablet 1,200 mg PO TID 06/16/20 12/30/23 History Allergies Allergy/AdvReac Type Severity Reaction Status Date / Time No Known Allergies Allergy Verified 06/06/23 15:59 Visit Medications Acetaminophen (Acetaminophen 325 Mg Tablet) 650 mg PO Q6H PRN PRN Reason: PAIN OR FEVER > 101 Stop: 01/29/24 20:51 Hydrocodone Bitart/Acetaminophen (Hydrocodone/Apap 5/325 Tablet) 1 tab PO Q6HR PRN PRN Reason: PAIN SCALE 4-10(Mod-Sev Stop: 01/04/24 20:51 Last Admin: 12/31/23 09:28 Dose: 1 tab Amlodipine Besylate (Amlodipine Besylate 5 Mg Tablet) 10 mg PO QDAY COUNT INCLUDES THE [facility] Stop: 01/30/24 08:59 Last Admin: 12/31/23 09:26 Dose: 10 mg Carvedilol (Carvedilol 3.125 Mg Tablet) 6.25 mg PO BIDWM COUNT INCLUDES THE [facility] Stop: 01/30/24 17:29 Dextrose (Dextrose 50%-Water Inj 50 Ml Syringe) 25 ml IV Q15MIN PRN PRN Reason: BG 50-70 responsive npo pt Stop: 01/29/24 21:04 Dextrose (Dextrose 50%-Water Inj 50 Ml Syringe) 50 ml IV Q15MIN PRN PRN Reason: BG <50 OR BG <70 & pt unresponsive Stop: 01/29/24 21:04 Doxycycline Hyclate (Doxycycline 100 Mg Tablet) 100 mg PO QDAY COUNT INCLUDES THE [facility] Stop: 01/07/24 11:14 Last Admin: 12/31/23 11:58 Dose: 100 mg Furosemide (Furosemide Inj 10 Mg/Ml 4ml Vial) 40 mg IVP QDAY COUNT INCLUDES THE [facility] Stop: 01/30/24 08:59 Last Admin: 12/31/23 09:28 Dose: 40 mg Gabapentin (Gabapentin 300 Mg Capsule) 300 mg PO TID COUNT INCLUDES THE [facility] Stop: 01/29/24 21:59 Last Admin: 12/31/23 06:34 Dose: 300 mg Glucagon (Glucagon Inj 1 Mg Vial) 1 mg IM Q15MIN PRN PRN Reason: BG <70, and no IV access Heparin Sodium (Porcine) (Heparin Sod Inj 5000 Unit/Ml Vial) 5,000 unit SC Q12HR KARY Stop: 01/14/24 08:59 Last Admin: 12/31/23 09:30 Dose: 5,000 unit Hydralazine HCl (Hydralazine Hcl 25 Mg Tablet) 25 mg PO TID KARY Stop: 01/30/24 08:59 Last Admin: 12/31/23 09:25 Dose: 25 mg Hydroxyzine HCl (Hydroxyzine Hcl 25 Mg Tablet) 25 mg PO HS PRN PRN Reason: insom Stop: 01/30/24 00:06 Last Admin: 12/31/23 00:28 Dose: 25 mg Ceftriaxone Sodium 2 gm/ (Sodium Chloride) 50 mls @ 100 mls/hr IV QDAY COUNT INCLUDES THE [facility] Stop: 01/07/24 13:59 Insulin Glargine (Insulin Glargine (Lantus) 5 Unit/0.05 Ml (Per 5 Units)) 10 unit SC DAILY KARY Stop: 01/30/24 08:59 Last Admin: 12/31/23 09:38 Dose: 10 unit Insulin Human Lispro (Insulin Lispro (Admelog) 1 Unit/0.01 Ml Unit) 0 unit SC AC KARY; Protocol Stop: 01/30/24 11:29 Last Admin: 12/31/23 11:57 Dose: 3 unit Ondansetron HCl (Ondansetron Inj 2 Mg/Ml Inj 2 Ml) 4 mg IV Q6H PRN; Protocol PRN Reason: NAUSEA OR VOMITING Stop: 01/29/24 20:51 Pantoprazole Sodium (Pantoprazole 40 Mg Tablet) 40 mg PO QDAY COUNT INCLUDES THE [facility] Stop: 01/30/24 08:59 Last Admin: 12/31/23 09:27 Dose: 40 mg Sennosides (Senna Tablet) 1 tab PO QDAY COUNT INCLUDES THE [facility]; Protocol Stop: 01/30/24 08:59 Last Admin: 12/31/23 09:27 Dose: 1 tab Discontinued Medications Dexamethasone Sodium Phosphate (Dexamethasone Sod Phos Inj 10 Mg/Ml Vial) 10 mg IM X1 ONE Stop: 12/30/23 16:12 Last Admin: 12/30/23 16:23 Dose: 10 mg Diphenhydramine HCl (Diphenhydramine 25 Mg Capsule) 25 mg PO X1 ONE Stop: 12/30/23 16:03 Last Admin: 12/30/23 16:09 Dose: 25 mg Famotidine (Famotidine 20 Mg Tablet) 40 mg PO X1 ONE Stop: 12/30/23 16:03 Last Admin: 12/30/23 16:09 Dose: 40 mg Furosemide (Furosemide Inj 10 Mg/Ml 4ml Vial) 40 mg IVP X1 ONE Stop: 12/30/23 21:06 Last Admin: 12/30/23 21:25 Dose: 40 mg Furosemide (Furosemide Inj 10 Mg/Ml 4ml Vial) 20 mg IVP X1 ONE Stop: 12/31/23 01:12 Last Admin: 12/31/23 01:22 Dose: 20 mg Hydralazine HCl (Hydralazine Inj 20 Mg/Ml Vial) 10 mg IV X1 ONE Stop: 12/30/23 21:04 Last Admin: 12/30/23 21:25 Dose: 10 mg Hydralazine HCl (Hydralazine Hcl 25 Mg Tablet) 25 mg PO X1 ONE Stop: 12/31/23 00:32 Last Admin: 12/31/23 00:43 Dose: Not Given Piperacillin Sod/Tazobactam (Sod 3.375 gm/ Sodium Chloride) 50 mls @ 100 mls/hr IV X1 ONE Stop: 12/30/23 20:35 Last Infusion: 12/30/23 20:52 Dose: Infused Vancomycin HCl 500 mg/ Sodium (Chloride) 100 mls @ 100 mls/hr IV X1 ONE Stop: 12/30/23 21:15 Last Infusion: 12/30/23 22:05 Dose: Infused Piperacillin/Tazobactam/Dextrose (Zosyn) 50 mls @ 12.5 mls/hr IV Q8HR KARY Stop: 01/07/24 05:59 Doxycycline Hyclate 100 mg/ (Sodium Chloride) 100 mls @ 100 mls/hr IV BID KARY Stop: 01/06/24 20:59 Last Admin: 12/30/23 22:05 Dose: Not Given Piperacillin/Tazobactam/Dextrose (Zosyn) 50 mls @ 100 mls/hr IV X1 ONE Stop: 12/30/23 21:44 Piperacillin/Tazobactam/Dextrose (Zosyn) 50 mls @ 12.5 mls/hr IV Q8HR COUNT INCLUDES THE [facility]; Protocol Stop: 01/07/24 07:59 Last Admin: 12/31/23 09:22 Dose: 12.5 mls/hr Doxycycline Hyclate 100 mg/ (Sodium Chloride) 100 mls @ 100 mls/hr IV BID KARY Stop: 01/07/24 08:59 Last Infusion: 12/31/23 11:22 Dose: Infused Doxycycline Hyclate 100 mg/ (Sodium Chloride) 100 mls @ 100 mls/hr IV X1 ONE Stop: 12/30/23 22:29 Last Infusion: 12/31/23 00:07 Dose: Infused Insulin Glargine (Insulin Glargine (Lantus) 5 Unit/0.05 Ml (Per 5 Units)) 10 unit SC X1 ONE Stop: 12/31/23 09:01 Insulin Human Lispro (Insulin Lispro (Admelog) 1 Unit/0.01 Ml Unit) 0 unit SC [facility] COUNT INCLUDES THE [facility]; Protocol Stop: 01/30/24 07:29 Last Admin: 12/31/23 09:47 Dose: Not Given Morphine Sulfate (Morphine Sulf Inj 10 Mg/Ml Vial) 4 mg IVP X1 ONE Stop: 12/30/23 20:07 Last Admin: 12/30/23 20:20 Dose: 4 mg Nitroglycerin (Nitroglycerin 0.4 Mg Subl Btl #25) 0.4 mg SL X1 ONE Stop: 12/31/23 00:39 Last Admin: 12/31/23 00:44 Dose: 0.4 mg Nitroglycerin (Nitroglycerin 0.4 Mg/Hr Patch.Td24) 0.4 mg TOP X1 ONE Stop: 12/31/23 01:11 Last Admin: 12/31/23 01:17 Dose: Not Given Nitroglycerin (Nitroglycerin Oint 2% 1 Inch Packet) 1 inch TOP X1 ONE Stop: 12/31/23 01:17 Last Admin: 12/31/23 01:22 Dose: 1 inch Ondansetron HCl (Ondansetron Inj 2 Mg/Ml Inj 2 Ml) 4 mg IV X1 ONE; Protocol Stop: 12/30/23 20:07 Last Admin: 12/30/23 20:19 Dose: 4 mg Quetiapine Fumarate (Quetiapine Fumarate 25 Mg Tablet) 25 mg PO X1 ONE Stop: 12/31/23 12:04 Last Admin: 12/31/23 12:06 Dose: Not Given Assessment & Plan Plan 48-year-old female with past medical history type 2 diabetes, Hypertension, kidney cancer status post partial nephrectomy, right foot osteomyelitis status post debridement and amputation now presenting with osteomyelitis of the left first digit #Sepsis secondary to osteomyelitis of left first digit Patient met to out of 4 sepsis criteria with osteomyelitis of the left first digit as seen on foot x-ray Patient received Vanco and Zosyn in the ER and was transitioned to Ceftriaxone and doxycycline by the primary team Surgery was consulted for possible amputation Plan: - follow up with gen surgery for possible intervention - current abx management appropriate - will follow up Discussed case with Attending Physician, Dr Arturo Rocha M.D. , PGY-3
--- NOTE | 2023-12-31 14:00 | PC.NURSE ---
pt taken to CT.
--- NOTE | 2023-12-31 14:11 | PD.IDPROG ---
Subjective Subjective Interval history: events noted. was treated before with iv rx for a prolonged duration just a year ago Exam Vital Signs Temp Pulse Resp BP Pulse Ox O2 Del Method O2 Flow Rate 97.9 F 98 18 157/81 H 96 Nasal Cannula 2 12/31/23 11:10 12/31/23 12:11 12/31/23 12:11 12/31/23 11:10 12/31/23 12:11 12/31/23 11:10 12/31/23 12:11 Narrative Exam ischemic looking great toe with some erythema sl proximal to joint some tatoos noted. Objective - Internal Medicine Labs 12/31/23 04:30 12/31/23 11:11 Labs: Laboratory Results - last 24 hr 12/30/23 12/30/23 12/31/23 16:28 19:51 04:30 WBC 10.9 11.5 H RBC 3.00 L 2.91 L Hgb 8.8 L 8.4 L Hct 28.8 L 27.2 L MCV 96 94 MCH 29.3 28.9 MCHC 30.6 L 30.9 L RDW Std Deviation 48.5 H 46.4 H Plt Count 364 355 Neut % (Auto) 76 90 H Lymph % (Auto) 11 5 L [place] % (Auto) 10 1 Eos % (Auto) 1 0 Baso % (Auto) 1 0 Neut # (Auto) 8.4 H 10.4 H Lymph # (Auto) 1.2 0.5 L [place] # (Auto) 1.1 H 0.1 Eos # (Auto) 0.1 0.0 Baso # (Auto) 0.1 0.1 Immature Gran # (Auto) 0.12 H 0.43 H Absolute Nucleated RBC 0.00 0.00 Immature Gran % 1 H 4 H Nucleated RBC % 0 0 PT 10.6 11.1 INR 1.0 1.0 APTT 30.1 28.9 Sodium 138 136 Potassium 4.6 5.8 H D Chloride 112 H 111 H Carbon Dioxide 19.0 L 17.2 L Anion Gap 7 8 BUN 48 H 54 H Creatinine 3.0 H 3.0 H Estim Creat Clear Calc 27.5 L 27.5 L eGFR 18 L 18 L BUN/Creatinine Ratio 16 18 Glucose [address] Glu mg/dL 232 H Hemoglobin A1c 9.7 H Calculated Osmolality 287 300 H Lactic Acid 1.4 Calcium 8.8 8.7 Corrected Calcium 9.1 9.3 Phosphorus 6.5 H Magnesium 1.8 1.7 Total Bilirubin 0.2 L 0.2 L AST 24 48 H ALT 32 47 Alkaline Phosphatase 333 H 391 H D Lactate Dehydrogenase 215 Troponin I < 0.020 B-Natriuretic Peptide 165 H Total Protein 7.3 6.7 Albumin 3.6 3.2 L Globulin 3.7 H 3.5 Albumin/Globulin Ratio 1.0 L 0.9 L Triglycerides 95 Cholesterol 201 H LDL Cholesterol, Calc 118 HDL Cholesterol 64 H Cholesterol/HDL Ratio 3.1 L Procalcitonin 0.18 TSH 1.14 Ur Collection Type Clean Catch Urine Color Lt-Yellow Urine Clarity Clear Urine pH 6.5 Ur Specific [place] 1.020 Urine Protein 3+ A Urine Glucose (UA) 2+ A Urine Ketones Negative Urine Blood 2+ A Urine Nitrite Negative Urine Bilirubin Negative Urine Urobilinogen (Auto) Negative Ur Leukocyte Esterase Negative Urine RBC 7 H Urine WBC 3 Ur Squamous Epith Cells 1 Urine Bacteria None Ur Culture Indicated? Not Indicated Ur Random Creatinine U Random Total Protein Ur Random Sodium Urine Opiates Screen Urine Fentanyl Screen Ur Barbiturates Screen U Amphetamin/Meth Scrn U Benzodiazepines Scrn U Cocaine Metab Screen U Marijuana (THC) Screen 12/31/23 12/31/23 12/31/23 08:15 11:09 11:11 WBC RBC Hgb Hct MCV MCH MCHC RDW Std Deviation Plt Count Neut % (Auto) Lymph % (Auto) [place] % (Auto) Eos % (Auto) Baso % (Auto) Neut # (Auto) Lymph # (Auto) [place] # (Auto) Eos # (Auto) Baso # (Auto) Immature Gran # (Auto) Absolute Nucleated RBC Immature Gran % Nucleated RBC % PT INR APTT Sodium 136 Potassium 5.5 H Chloride 110 H Carbon Dioxide 16.3 L Anion Gap 10 BUN 51 H Creatinine 3.0 H Estim Creat Clear Calc 27.5 L eGFR 18 L BUN/Creatinine Ratio 17 [address]ucose [address] Glu mg/dL Hemoglobin A1c Calculated Osmolality 298 H Lactic Acid Calcium 8.8 Corrected Calcium Phosphorus Magnesium Total Bilirubin AST ALT Alkaline Phosphatase Lactate Dehydrogenase Troponin I B-Natriuretic Peptide Total Protein Albumin Globulin Albumin/Globulin Ratio Triglycerides Cholesterol LDL Cholesterol, Calc HDL Cholesterol Cholesterol/HDL Ratio Procalcitonin TSH Ur Collection Type Urine Color Urine Clarity Urine pH Ur Specific [place] Urine Protein Urine Glucose (UA) Urine Ketones Urine Blood Urine Nitrite Urine Bilirubin Urine Urobilinogen (Auto) Ur Leukocyte Esterase Urine RBC Urine WBC Ur Squamous Epith Cells Urine Bacteria Ur Culture Indicated? Ur Random Creatinine U Random Total Protein 449 H Ur Random Sodium Urine Opiates Screen Positive A Urine Fentanyl Screen Negative Ur Barbiturates Screen Negative U Amphetamin/Meth Scrn Positive A U Benzodiazepines Scrn Negative U Cocaine Metab Screen Negative U Marijuana (THC) Screen Positive A 12/31/23 13:06 WBC RBC Hgb Hct MCV MCH MCHC RDW Std Deviation Plt Count Neut % (Auto) Lymph % (Auto) [place] % (Auto) Eos % (Auto) Baso % (Auto) Neut # (Auto) Lymph # (Auto) [place] # (Auto) Eos # (Auto) Baso # (Auto) Immature Gran # (Auto) Absolute Nucleated RBC Immature Gran % Nucleated RBC % PT INR APTT Sodium Potassium Chloride Carbon Dioxide Anion Gap BUN Creatinine Estim Creat Clear Calc eGFR BUN/Creatinine Ratio Glucose Estimated Ave Glu mg/dL Hemoglobin A1c Calculated Osmolality Lactic Acid Calcium Corrected Calcium Phosphorus Magnesium Total Bilirubin AST ALT Alkaline Phosphatase Lactate Dehydrogenase Troponin I B-Natriuretic Peptide Total Protein Albumin Globulin Albumin/Globulin Ratio Triglycerides Cholesterol LDL Cholesterol, Calc HDL Cholesterol Cholesterol/HDL Ratio Procalcitonin TSH Ur Collection Type Urine Color Urine Clarity Urine pH Ur Specific [place] Urine Protein Urine Glucose (UA) Urine Ketones Urine Blood Urine Nitrite Urine Bilirubin Urine Urobilinogen (Auto) Ur Leukocyte Esterase Urine RBC Urine WBC Ur Squamous Epith Cells Urine Bacteria Ur Culture Indicated? Ur Random Creatinine 23 L U Random Total Protein 382 H Ur Random Sodium 96.0 Urine Opiates Screen Urine Fentanyl Screen Ur Barbiturates Screen U Amphetamin/Meth Scrn U Benzodiazepines Scrn U Cocaine Metab Screen U Marijuana (THC) Screen Assessment & Plan A&P Narrative re treating with abx is dickson to doing the same thing over and over and hoping for a different response. amputation is encouraged and would be definitive short course po after that ok 4- 5 d po after iv all she needs if infection removed. empiric abx ok for now will see again friday am, she is happy to know that she will not need to go to [facility] for [facility]x. at least for now Time Spent With Patient Time: Total time spent is greater than 50% in coordination of care (as documented) at patient's floor/unit and/or counseling patient:
[2023-12-31] MEDS: cefTRIAXone 2 GM in SODIUM CHLORIDE 0.9% (P) 50 ML IV (15:11)
--- NOTE | 2023-12-31 15:14 | ESCONSULT_ITS ---
[facility] Data of Consult Consult date: 12/31/23 Requesting Physician: Neri Potter MD Admitting Provider: Tk Lucero MD Attending Provider: Dominick Moreland MD Primary Care Provider: Physician No Primary/Family Consult Narrative Reason for consult: KIM on CKD History of present illness: 48 y/o F with PMHx significant for type 2 diabetes mellitus (insulin-dependent), hypertension, kidney cancer status post partial nephrectomy, and history of right foot osteomyelitis status post debridement and amputations now presents with shortness of breath and left great toe pain. Patient states that she has been short of breath for last couple of days, endorsing orthopnea and PND with associated bilateral lower extremity edema, bilateral upper extremity edema, and swelling around the eyes and tongue. She denies chest pain, pressure, and tightness. Also reports pain in left great toe initially with purulent drainage, now with serosanguineous material on bed sheets in ED. Denies fever and chills but endorses sweats. Otherwise denies dysuria, hematuria, or foul- smelling urine. Labs at time of admission showed BUN 48 (baseline 19?22), [employer] 3.0 (baseline 1.5), GFR 18. Chest x-ray showed heart failure pattern, bibasilar pneumonia, moderate left and large right pleural effusions. X-ray of left foot showed significant osteo of distal phalanx of first digit. Patient admitted for CHF exacerbation and left toe osteomyelitis. Nephrology was consulted due to KIM on CKD. Patient seen in ED resting in bed. Patient had bilateral lower extremity edema, worse than usual per patient. Lungs clear to auscultation, poor lung sounds due to body habitus. Labs at time of exam showed sodium 136, potassium 5.5, bicarb 16.3, BUN 51, creatinine 3.0, eGFR 18. Plan for additional diuretics, suspect cardiorenal syndrome due to fluid overload state. 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, no cigarettes or EtOH consumption PSHx: Remittent and amputation of multiple phalanx of her right foot cc:: cc: Neri Potter MD Review of Systems Review of Systems Systems Reviewed: All systems reviewed, normal except as documented Past Medical History Past Medical History Comments PMH COMMENT: 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 HEENT: NCAT, PERRLA, EOMI, MMM, anicteric conjunctivae. CVS: normal S1 and S2. RRR. No M/R/G. Resp: CTA B/L. No rhonchi, rales, crackles or wheezing. Poor lung sounds due to body habitus. Abd: soft, non-tender, non-distended. MSK: Good ROM in BUE & BLE. No rash. Bilateral lower extremity edema. Partial potation's of right foot. Left foot toe bandage, leaking serosanguineous fluid. Neuro: CN II-XII grossly intact. Strength 5/5 in BUE & BLE. Alert and oriented x3. Psych: appropriate mood and affect. Results Labs 01/01/24 05:18 01/01/24 05:18 Labs: Short CBC 12/30/23 12/31/23 Range/Units 16:28 04:30 WBC 10.9 11.5 H (3.6-11.0) Thou/mm3 Hgb 8.8 L 8.4 L (12.0-16.0) g/dL Hct 28.8 L 27.2 L (36.0-46.0) % Plt Count 364 355 (140-440) Thou/mm3 BMP 12/30/23 12/31/23 12/31/23 16:28 04:30 11:11 Sodium 138 136 136 Potassium 4.6 5.8 H D 5.5 H Chloride 112 H 111 H 110 H Carbon Dioxide 19.0 L 17.2 L 16.3 L BUN 48 H 54 H 51 H Creatinine 3.0 H 3.0 H 3.0 H Glucose 80 345 H D 329 H Calcium 8.8 8.7 8.8 Cardiac Enzymes 12/30/23 Range/Units 16:28 Troponin I < 0.020 (0.0-0.045) ng/mL Liver Function 12/30/23 12/31/23 Range/Units 16:28 04:30 Total Bilirubin 0.2 L 0.2 L (0.3-1.2) mg/dL AST 24 48 H (0-34) U/L ALT 32 47 (10-49) U/L Alkaline Phosphatase 333 H 391 H D (46-116) U/L Albumin 3.6 3.2 L (3.5-5.0) gm/dL Urine 12/30/23 Range/Units 19:51 Urine Color Lt-Yellow (Lt Yel-Yel) Urine Clarity Clear (Clear/Hazy) Urine pH 6.5 (5.0-7.0) Ur Specific [place] 1.020 (1.001-1.035) Urine Protein 3+ A (Neg - Trace) Urine Glucose (UA) 2+ A (Negative) Quality Measures Quality Measures none Medications Home Medications and Allergies Home Medications ?Medication ?Instructions ?Recorded ?Confirmed ?Type gabapentin 600 mg tablet 1,200 mg PO TID 06/16/20 12/30/23 History Allergies Allergy/AdvReac Type Severity Reaction Status Date / Time No Known Allergies Allergy Verified 06/06/23 15:59 Visit Medications Acetaminophen (Acetaminophen 325 Mg Tablet) 650 mg PO Q6H PRN PRN Reason: PAIN OR FEVER > 101 Stop: 01/29/24 20:51 Hydrocodone Bitart/Acetaminophen (Hydrocodone/Apap 5/325 Tablet) 1 tab PO Q6HR PRN PRN Reason: PAIN SCALE 4-10(Mod-Sev Stop: 01/04/24 20:51 Last Admin: 12/31/23 09:28 Dose: 1 tab Amlodipine Besylate (Amlodipine Besylate 5 Mg Tablet) 10 mg PO QDAY [facility] Stop: 01/30/24 08:59 Last Admin: 12/31/23 09:26 Dose: 10 mg Carvedilol (Carvedilol 3.125 Mg Tablet) 12.5 mg PO BIDWM [facility] Stop: 01/30/24 17:29 Dextrose (Dextrose 50%-Water Inj 50 Ml Syringe) 25 ml IV Q15MIN PRN PRN Reason: BG 50-70 responsive npo pt Stop: 01/29/24 21:04 Dextrose (Dextrose 50%-Water Inj 50 Ml Syringe) 50 ml IV Q15MIN PRN PRN Reason: BG <50 OR BG <70 & pt unresponsive Stop: 01/29/24 21:04 Doxycycline Hyclate (Doxycycline 100 Mg Tablet) 100 mg PO QDAY [facility] Stop: 01/07/24 11:14 Last Admin: 12/31/23 11:58 Dose: 100 mg Furosemide (Furosemide Inj 10 Mg/Ml 4ml Vial) 40 mg IVP Q8H [facility] Stop: 01/30/24 13:59 Last Admin: 12/31/23 15:08 Dose: 40 mg Gabapentin (Gabapentin 300 Mg Capsule) 300 mg PO TID [facility] Stop: 01/29/24 21:59 Last Admin: 12/31/23 15:10 Dose: 300 mg Glucagon (Glucagon Inj 1 Mg Vial) 1 mg IM Q15MIN PRN PRN Reason: BG <70, and no IV access Heparin Sodium (Porcine) (Heparin Sod Inj 5000 Unit/Ml Vial) 5,000 unit SC Q12HR [facility] Stop: 01/14/24 08:59 Last Admin: 12/31/23 09:30 Dose: 5,000 unit Hydralazine HCl (Hydralazine Hcl 25 Mg Tablet) 25 mg PO TID [facility] Stop: 01/30/24 08:59 Last Admin: 12/31/23 15:10 Dose: 25 mg Hydroxyzine HCl (Hydroxyzine Hcl 25 Mg Tablet) 25 mg PO HS PRN PRN Reason: insom Stop: 01/30/24 00:06 Last Admin: 12/31/23 00:28 Dose: 25 mg Ceftriaxone Sodium 2 gm/ (Sodium Chloride) 50 mls @ 100 mls/hr IV QDAY [facility] Stop: 01/07/24 13:59 Last Admin: 12/31/23 15:11 Dose: 100 mls/hr Albumin Human (Albuminar-25 Ivpb) 25 gm in 100 mls @ 100 mls/hr IV Q8HR [facility] Stop: 01/03/24 13:59 Insulin Glargine (Insulin Glargine (Lantus) 5 Unit/0.05 Ml (Per 5 Units)) 10 unit SC DAILY [facility] Stop: 01/30/24 08:59 Last Admin: 12/31/23 09:38 Dose: 10 unit Insulin Human Lispro (Insulin Lispro (Admelog) 1 Unit/0.01 Ml Unit) 0 unit SC AC [facility]; Protocol Stop: 01/30/24 11:29 Last Admin: 12/31/23 11:57 Dose: 3 unit Ondansetron HCl (Ondansetron Inj 2 Mg/Ml Inj 2 Ml) 4 mg IV Q6H PRN; Protocol PRN Reason: NAUSEA OR VOMITING Stop: 01/29/24 20:51 Pantoprazole Sodium (Pantoprazole 40 Mg Tablet) 40 mg PO QDAY [facility] Stop: 01/30/24 08:59 Last Admin: 12/31/23 09:27 Dose: 40 mg Sennosides (Senna Tablet) 1 tab PO QDAY [facility]; Protocol Stop: 01/30/24 08:59 Last Admin: 12/31/23 09:27 Dose: 1 tab Discontinued Medications Carvedilol (Carvedilol 3.125 Mg Tablet) 6.25 mg PO BIDWM [facility] Stop: 01/30/24 17:29 Dexamethasone Sodium Phosphate (Dexamethasone Sod Phos Inj 10 Mg/Ml Vial) 10 mg IM X1 ONE Stop: 12/30/23 16:12 Last Admin: 12/30/23 16:23 Dose: 10 mg Diphenhydramine HCl (Diphenhydramine 25 Mg Capsule) 25 mg PO X1 ONE Stop: 12/30/23 16:03 Last Admin: 12/30/23 16:09 Dose: 25 mg Famotidine (Famotidine 20 Mg Tablet) 40 mg PO X1 ONE Stop: 12/30/23 16:03 Last Admin: 12/30/23 16:09 Dose: 40 mg Furosemide (Furosemide Inj 10 Mg/Ml 4ml Vial) 40 mg IVP X1 ONE Stop: 12/30/23 21:06 Last Admin: 12/30/23 21:25 Dose: 40 mg Furosemide (Furosemide Inj 10 Mg/Ml 4ml Vial) 40 mg IVP QDAY [facility] Stop: 01/30/24 08:59 Last Admin: 12/31/23 09:28 Dose: 40 mg Furosemide (Furosemide Inj 10 Mg/Ml 4ml Vial) 20 mg IVP X1 ONE Stop: 12/31/23 01:12 Last Admin: 12/31/23 01:22 Dose: 20 mg Hydralazine HCl (Hydralazine Inj 20 Mg/Ml Vial) 10 mg IV X1 ONE Stop: 12/30/23 21:04 Last Admin: 12/30/23 21:25 Dose: 10 mg Hydralazine HCl (Hydralazine Hcl 25 Mg Tablet) 25 mg PO X1 ONE Stop: 12/31/23 00:32 Last Admin: 12/31/23 00:43 Dose: Not Given Piperacillin Sod/Tazobactam (Sod 3.375 gm/ Sodium Chloride) 50 mls @ 100 mls/hr IV X1 ONE Stop: 12/30/23 20:35 Last Infusion: 12/30/23 20:52 Dose: Infused Vancomycin HCl 500 mg/ Sodium (Chloride) 100 mls @ 100 mls/hr IV X1 ONE Stop: 12/30/23 21:15 Last Infusion: 12/30/23 22:05 Dose: Infused Piperacillin/Tazobactam/Dextrose (Zosyn) 50 mls @ 12.5 mls/hr IV Q8HR [facility] Stop: 01/07/24 05:59 Doxycycline Hyclate 100 mg/ (Sodium Chloride) 100 mls @ 100 mls/hr IV BID [facility] Stop: 01/06/24 20:59 Last Admin: 12/30/23 22:05 Dose: Not Given Piperacillin/Tazobactam/Dextrose (Zosyn) 50 mls @ 100 mls/hr IV X1 ONE Stop: 12/30/23 21:44 Piperacillin/Tazobactam/Dextrose (Zosyn) 50 mls @ 12.5 mls/hr IV Q8HR [facility]; Protocol Stop: 01/07/24 07:59 Last Infusion: 12/31/23 13:35 Dose: Infused Doxycycline Hyclate 100 mg/ (Sodium Chloride) 100 mls @ 100 mls/hr IV BID [facility] Stop: 01/07/24 08:59 Last Infusion: 12/31/23 11:22 Dose: Infused Doxycycline Hyclate 100 mg/ (Sodium Chloride) 100 mls @ 100 mls/hr IV X1 ONE Stop: 12/30/23 22:29 Last Infusion: 12/31/23 00:07 Dose: Infused Insulin Glargine (Insulin Glargine (Lantus) 5 Unit/0.05 Ml (Per 5 Units)) 10 unit SC X1 ONE Stop: 12/31/23 09:01 Insulin Human Lispro (Insulin Lispro (Admelog) 1 Unit/0.01 Ml Unit) 0 unit SC ACHS KARY; Protocol Stop: 01/30/24 07:29 Last Admin: 12/31/23 09:47 Dose: Not Given Morphine Sulfate (Morphine Sulf Inj 10 Mg/Ml Vial) 4 mg IVP X1 ONE Stop: 12/30/23 20:07 Last Admin: 12/30/23 20:20 Dose: 4 mg Nitroglycerin (Nitroglycerin 0.4 Mg Subl Btl #25) 0.4 mg SL X1 ONE Stop: 12/31/23 00:39 Last Admin: 12/31/23 00:44 Dose: 0.4 mg Nitroglycerin (Nitroglycerin 0.4 Mg/Hr Patch.Td24) 0.4 mg TOP X1 ONE Stop: 12/31/23 01:11 Last Admin: 12/31/23 01:17 Dose: Not Given Nitroglycerin (Nitroglycerin Oint 2% 1 Inch Packet) 1 inch TOP X1 ONE Stop: 12/31/23 01:17 Last Admin: 12/31/23 01:22 Dose: 1 inch Ondansetron HCl (Ondansetron Inj 2 Mg/Ml Inj 2 Ml) 4 mg IV X1 ONE; Protocol Stop: 12/30/23 20:07 Last Admin: 12/30/23 20:19 Dose: 4 mg Quetiapine Fumarate (Quetiapine Fumarate 25 Mg Tablet) 25 mg PO X1 ONE Stop: 12/31/23 12:04 Last Admin: 12/31/23 12:06 Dose: Not Given Assessment & Plan Plan Tati Costa is a 48-year-old female with past medical history of type 2 diabetes mellitus (insulin-dependent), hypertension, kidney cancer status post partial nephrectomy, and history of right foot osteomyelitis status post debridement and amputations admitted for CHF and left great toe osteomyelitis work-up and management. #Acute on chronic kidney injury #CKD stage IV #Nephrotic syndrome Patient presented with poor kidney function, BUN, creatinine elevated above baseline. Patient has history of CHF, appears to be in CHF exacerbation clinically based on reported symptoms of orthopnea, exam findings of bilateral lower extremity edema increased compared to baseline per patient. Concern for nephrotic syndrome given findings: Random urine creatinine 23, random urine total protein to 82, random urine sodium 96. Renal ultrasound showed no hydronephrosis or renal stones. Plan: -Renally dose medications -Avoid nephrotoxic meds -Follow daily labs -Diuretics: Lasix 40 mg IV every 8 hours # ?New onset CHF #Anasarca #Osteomyelitis, left great toe #History of osteomyelitis, right foot #Type 2 diabetes mellitus, insulin-dependent #Hypertension #Hypertensive urgency Plan as per primary team Thank you for allowing me to participate in the care of this patient. Plan of care discussed with attending Dr. Moreland. Lane Kenney MD PGY-1 Attending Provider Attestation/Addendum Patient seen and examined with resident physician Dr. Kenney. Note reviewed, agree with plan and recommendations Patient complaining of severe edema// shortness of breath. Chest x-ray showed vascular congestion. She has DM x years with D. retinopathy, PVD, toe amputations. Up/cr 16.6g- consistent with severe, progressive diabetic nephropathy causing anasarca. Continue diuretics as needed. Will monitor renal function closely. She needs renal f/u as OP. Might up on dialysis down the road. check PTH Going for left great toe amputation. Thank you Dr. Potter for allowing me to participate in the care of Ms Costa.
--- NOTE | 2023-12-31 15:30 | PC.NURSE ---
attempted to call report, RN unavailable at this time. RN states she will call back.
--- NOTE | 2023-12-31 15:30 | PC.NURSE ---
dr. jennings at bedside to consult.
[2023-12-31] MEDS: ALBUMIN HUMAN 25% IVPB 25 GM/100 ML BTL IV ×2 (15:50→21:11)
--- NOTE | 2023-12-31 16:34 | ESPR_ITS ---
Documentation for date of: 12/31/23 Subjective Subjective Interval history: No overnight events. Patient seen and examined at bedside. Labs reviewed. Patient's blood pressure remains elevated. She says that her left foot started to develop an open wound about 2 weeks ago. Patient endorses pain in the left foot. Otherwise, she says she feels generally much better. Her shortness of breath has improved. Patient denies fever, chills, chest pain, palpitation, nausea, vomiting, diarrhea, or constipation. Exam Vital Signs Temp Pulse Resp BP Pulse Ox O2 Del Method O2 Flow Rate 98 F 98 15 168/92 H 97 Room Air 2 12/31/23 15:00 12/31/23 15:10 12/31/23 15:00 12/31/23 15:10 12/31/23 15:00 12/31/23 15:00 12/31/23 12:11 Narrative Exam General: Middle-aged female, no acute distress, able to speak full sentences, legally blind HEENT: NC/AT, mucous membranes moist, bilateral sclera anicteric Cardiovascular: regular rate and rhythm, S1/S2 present, no murmurs appreciated Pulmonary: no rales/rhonchi/wheezes, diminished breath sounds lower lung lobes bilaterally Abdominal: obese, soft, non-tender, no rebound/guarding, normal bowel sounds present Musculoskeletal: bilateral lower extremity edema to shins. bilateral upper extremity non-pitting edema, L hand>> R hand Left great toe erythematous, swollen, dry. Amputation of the right toes- 3-5th digits. Range of motion intact in the upper extremities. Skin: warm and dry, no rashes. Neuro: Legally blind. [id number]. Psych: appropriate mood and affect. Objective Labs 01/04/24 04:36 01/04/24 04:36 Labs: Laboratory Results - last 24 hr 12/30/23 12/30/23 12/31/23 16:28 19:51 04:30 WBC 10.9 11.5 H RBC 3.00 L 2.91 L Hgb 8.8 L 8.4 L Hct 28.8 L 27.2 L MCV 96 94 MCH 29.3 28.9 MCHC 30.6 L 30.9 L RDW Std Deviation 48.5 H 46.4 H Plt Count 364 355 Neut % (Auto) 76 90 H Lymph % (Auto) 11 5 L [place] % (Auto) 10 1 Eos % (Auto) 1 0 Baso % (Auto) 1 0 Neut # (Auto) 8.4 H 10.4 H Lymph # (Auto) 1.2 0.5 L [place] # (Auto) 1.1 H 0.1 Eos # (Auto) 0.1 0.0 Baso # (Auto) 0.1 0.1 Immature Gran # (Auto) 0.12 H 0.43 H Absolute Nucleated RBC 0.00 0.00 Immature Gran % 1 H 4 H Nucleated RBC % 0 0 PT 10.6 11.1 INR 1.0 1.0 APTT 30.1 28.9 Sodium 138 136 Potassium 4.6 5.8 H D Chloride 112 H 111 H Carbon Dioxide 19.0 L 17.2 L Anion Gap 7 8 BUN 48 H 54 H Creatinine 3.0 H 3.0 H Estim Creat Clear Calc 27.5 L 27.5 L eGFR 18 L 18 L BUN/Creatinine Ratio 16 18 Glucose [address] Glu mg/dL 232 H Hemoglobin A1c 9.7 H Calculated Osmolality 287 300 H Lactic Acid 1.4 Calcium 8.8 8.7 Corrected Calcium 9.1 9.3 Phosphorus 6.5 H Magnesium 1.8 1.7 Total Bilirubin 0.2 L 0.2 L AST 24 48 H ALT 32 47 Alkaline Phosphatase 333 H 391 H D Lactate Dehydrogenase 215 Troponin I < 0.020 B-Natriuretic Peptide 165 H Total Protein 7.3 6.7 Albumin 3.6 3.2 L Globulin 3.7 H 3.5 Albumin/Globulin Ratio 1.0 L 0.9 L Triglycerides 95 Cholesterol 201 H LDL Cholesterol, Calc 118 HDL Cholesterol 64 H Cholesterol/HDL Ratio 3.1 L Procalcitonin 0.18 TSH 1.14 Ur Collection Type Clean Catch Urine Color Lt-Yellow Urine Clarity Clear Urine pH 6.5 Ur Specific [place] 1.020 Urine Protein 3+ A Urine Glucose (UA) 2+ A Urine Ketones Negative Urine Blood 2+ A Urine Nitrite Negative Urine Bilirubin Negative Urine Urobilinogen (Auto) Negative Ur Leukocyte Esterase Negative Urine RBC 7 H Urine WBC 3 Ur Squamous Epith Cells 1 Urine Bacteria None Ur Culture Indicated? Not Indicated Ur Random Creatinine U Random Total Protein Ur Random Sodium Urine Opiates Screen Urine Fentanyl Screen Ur Barbiturates Screen U Amphetamin/Meth Scrn U Benzodiazepines Scrn U Cocaine Metab Screen U Marijuana (THC) Screen 12/31/23 12/31/23 12/31/23 08:15 11:09 11:11 WBC RBC Hgb Hct MCV MCH MCHC RDW Std Deviation Plt Count Neut % (Auto) Lymph % (Auto) [place] % (Auto) Eos % (Auto) Baso % (Auto) Neut # (Auto) Lymph # (Auto) [place] # (Auto) Eos # (Auto) Baso # (Auto) Immature Gran # (Auto) Absolute Nucleated RBC Immature Gran % Nucleated RBC % PT INR APTT Sodium 136 Potassium 5.5 H Chloride 110 H Carbon Dioxide 16.3 L Anion Gap 10 BUN 51 H Creatinine 3.0 H Estim Creat Clear Calc 27.5 L eGFR 18 L BUN/Creatinine Ratio 17 [address]ucose [address] Glu mg/dL Hemoglobin A1c Calculated Osmolality 298 H Lactic Acid Calcium 8.8 Corrected Calcium Phosphorus Magnesium Total Bilirubin AST ALT Alkaline Phosphatase Lactate Dehydrogenase Troponin I B-Natriuretic Peptide Total Protein Albumin Globulin Albumin/Globulin Ratio Triglycerides Cholesterol LDL Cholesterol, Calc HDL Cholesterol Cholesterol/HDL Ratio Procalcitonin TSH Ur Collection Type Urine Color Urine Clarity Urine pH Ur Specific [place] Urine Protein Urine Glucose (UA) Urine Ketones Urine Blood Urine Nitrite Urine Bilirubin Urine Urobilinogen (Auto) Ur Leukocyte Esterase Urine RBC Urine WBC Ur Squamous Epith Cells Urine Bacteria Ur Culture Indicated? Ur Random Creatinine U Random Total Protein 449 H Ur Random Sodium Urine Opiates Screen Positive A Urine Fentanyl Screen Negative Ur Barbiturates Screen Negative U Amphetamin/Meth Scrn Positive A U Benzodiazepines Scrn Negative U Cocaine Metab Screen Negative U Marijuana (THC) Screen Positive A 12/31/23 13:06 WBC RBC Hgb Hct MCV MCH MCHC RDW Std Deviation Plt Count Neut % (Auto) Lymph % (Auto) [place] % (Auto) Eos % (Auto) Baso % (Auto) Neut # (Auto) Lymph # (Auto) [place] # (Auto) Eos # (Auto) Baso # (Auto) Immature Gran # (Auto) Absolute Nucleated RBC Immature Gran % Nucleated RBC % PT INR APTT Sodium Potassium Chloride Carbon Dioxide Anion Gap BUN Creatinine Estim Creat Clear Calc eGFR BUN/Creatinine Ratio Glucose Estimated Ave Glu mg/dL Hemoglobin A1c Calculated Osmolality Lactic Acid Calcium Corrected Calcium Phosphorus Magnesium Total Bilirubin AST ALT Alkaline Phosphatase Lactate Dehydrogenase Troponin I B-Natriuretic Peptide Total Protein Albumin Globulin Albumin/Globulin Ratio Triglycerides Cholesterol LDL Cholesterol, Calc HDL Cholesterol Cholesterol/HDL Ratio Procalcitonin TSH Ur Collection Type Urine Color Urine Clarity Urine pH Ur Specific [place] Urine Protein Urine Glucose (UA) Urine Ketones Urine Blood Urine Nitrite Urine Bilirubin Urine Urobilinogen (Auto) Ur Leukocyte Esterase Urine RBC Urine WBC Ur Squamous Epith Cells Urine Bacteria Ur Culture Indicated? Ur Random Creatinine 23 L U Random Total Protein 382 H Ur Random Sodium 96.0 Urine Opiates Screen Urine Fentanyl Screen Ur Barbiturates Screen U Amphetamin/Meth Scrn U Benzodiazepines Scrn U Cocaine Metab Screen U Marijuana (THC) Screen Quality Measures Quality Measures none Assessment & Plan Assessment Current Active Medications: Generic Name Dose Route Start Last Admin Trade Name Freq PRN Reason Stop Dose Admin Acetaminophen 650 mg 12/30/23 20:52 Acetaminophen 325 Mg Tablet PO 01/29/24 20:51 Q6H PRN PAIN OR FEVER > 101 Hydrocodone Bitart/Acetaminophen 1 tab 12/30/23 20:52 12/31/23 15:54 Hydrocodone/Apap 5/325 Tablet PO 01/04/24 20:51 1 tab Q6HR PRN Administration PAIN SCALE 4-10(Mod-Sev Amlodipine Besylate 10 mg 12/31/23 09:00 12/31/23 09:26 Amlodipine Besylate 5 Mg Tablet PO 01/30/24 08:59 10 mg QDAY KARY Administration Carvedilol 12.5 mg 12/31/23 17:30 Carvedilol 3.125 Mg Tablet PO 01/30/24 17:29 BIDWM KARY Dextrose 25 ml 12/30/23 21:05 Dextrose 50%-Water Inj 50 Ml Syringe IV 01/29/24 21:04 Q15MIN PRN BG 50-70 responsive npo pt Dextrose 50 ml 12/30/23 21:05 Dextrose 50%-Water Inj 50 Ml Syringe IV 01/29/24 21:04 Q15MIN PRN BG <50 OR BG <70 & pt unresponsive Doxycycline Hyclate 100 mg 12/31/23 11:15 12/31/23 11:58 Doxycycline 100 Mg Tablet PO 01/07/24 11:14 100 mg QDAY KARY Administration Furosemide 40 mg 12/31/23 14:01 12/31/23 15:08 Furosemide Inj 10 Mg/Ml 4ml Vial IVP 01/30/24 13:59 40 mg Q8H KARY Administration Gabapentin 300 mg 12/30/23 22:00 12/31/23 15:10 Gabapentin 300 Mg Capsule PO 01/29/24 21:59 300 mg TID KARY Administration Glucagon 1 mg 12/30/23 21:05 Glucagon Inj 1 Mg Vial IM Q15MIN PRN BG <70, and no IV access Heparin Sodium (Porcine) 5,000 unit 12/31/23 09:00 12/31/23 09:30 Heparin Sod Inj 5000 Unit/Ml Vial SC 01/14/24 08:59 5,000 unit Q12HR KARY Administration Hydralazine HCl 25 mg 12/31/23 09:00 12/31/23 15:10 Hydralazine Hcl 25 Mg Tablet PO 01/30/24 08:59 25 mg TID KARY Administration Hydroxyzine HCl 25 mg 12/31/23 00:07 12/31/23 00:28 Hydroxyzine Hcl 25 Mg Tablet PO 01/30/24 00:06 25 mg HS PRN Administration insom Ceftriaxone Sodium 2 gm/ 50 mls @ 100 mls/hr 12/31/23 14:00 12/31/23 15:51 Sodium Chloride IV 01/07/24 13:59 Infused QDAY KARY Infusion Albumin Human 25 gm in 100 mls @ 100 mls/hr 12/31/23 14:00 12/31/23 15:50 Albuminar-25 Ivpb IV 01/03/24 13:59 100 mls/hr Q8HR KARY Administration Insulin Glargine 10 unit 12/31/23 09:00 12/31/23 09:38 Insulin Glargine (Lantus) 5 Unit/0.05 Ml (Per 5 Units) SC 01/30/24 08:59 10 unit DAILY KARY Administration Insulin Human Lispro 0 unit 12/31/23 11:30 12/31/23 11:57 Insulin Lispro (Admelog) 1 Unit/0.01 Ml Unit SC 01/30/24 11:29 3 unit AC KARY Administration Protocol Ondansetron HCl 4 mg 12/30/23 20:52 Ondansetron Inj 2 Mg/Ml Inj 2 Ml IV 01/29/24 20:51 Q6H PRN NAUSEA OR VOMITING Protocol Pantoprazole Sodium 40 mg 12/31/23 09:00 12/31/23 09:27 Pantoprazole 40 Mg Tablet PO 01/30/24 08:59 40 mg QDAY KARY Administration Sennosides 1 tab 12/31/23 09:00 12/31/23 09:27 Senna Tablet PO 01/30/24 08:59 1 tab QDAY KARY Administration Protocol Plan a 48-year-old female with past medical history of type 2 diabetes mellitus (insulin-dependent), hypertension, kidney cancer status post partial nephrectomy, and history of right foot osteomyelitis status post debridement and amputations admitted for CHF and left great toe osteomyelitis work-up and management. #Acutely decompensated congestive heart failure Most likely secondary to hypertension Initially, patient presented with shortness of breath,orthopnea, and PND. Her dyspnea required oxygenation and lasix for symptomatic relief. Found to have bilateral pleural effusions confirmed on chest x-ray. Echo 06/22/2023: EF 60-65%, trace MR, AR, and mild TR. BNP mildly elevated at 165, troponin negative. NYHA class III. Plan: -Lasix 40 mg IV every 8 hours. -Fluid restriction (1.2 L), daily weight checks, Strict I & O -Follow-up echo -CMP in am #B/L Pleural effusion, confirmed on xray Ultrasound-guided thoracentesis showed small bilateral perfusion, no drainage done. Serum LDH is 215. -US-guided thoracentesis with fluid studies;f/up -Will consider thoracenthesis is symptoms worsen but anticipate improvement with aggressive diuresis #Acute on chronic kidney injury #CKD stage IV #Hyperchloremic metabolic acidosis #Nephrotic syndrome, likely #Kidney cancer history Patient was found to have electrolyte derrangements and elevated creatinine/low GFR. Patient has history of kidney cancer status post partial nephrectomy. Creatinine 3.0, GFR 18. Baseline creatinine 1.3 on 06/2023. Cr .9 on 05/2023. Renal ultrasound showed: Right kidney 12.3 x 7.2 x 7.1 cm cortex 2.2 cm. Right kidney 11.8 x 6.2 x 5.7 cm cortex 2.3 cm, No hydronephrosis or renal calculi. Bladder prevoid volume 2 87 cc unable to void Plan: -Patient is dialysis candidate, pending neuro reccs. -Avoid fluids in setting of fluid overload CHF. -total protein ordered; f/up -Nephrology consulted; appreciate recs -Follow-up US of kidneys #Hyperkalemia #Hyperphosphatemia Secondary to CKD Patient had K+ of 5.8--> 5.5 on repeat BMP. Phosphorus elevated at 6.5. -Kayexalate and insulin 10 units x 1 -Renvela started -F/up BMP #Osteomyelitis, left great toe #History of osteomyelitis, right foot #Sepsis -resolved 2/2 above #Leukocytosis Patient presented with pain in the left foot after hitting it against an object. She met 2/4 SIRS criteria: Heart rate 104, WBC 11.5. On-going open foot ulcer x2 weeks, likely longer. XR and MRI of the left foot showed osteomyelitis of the proximal and distal phalanges first digit. LDH 215. Plan: -General surgery consulted, appreciate recommendations -Zozyn discontinued -Doxycycline 100 mg IV BID and Ceftriaxone 2gm daily (12/31/2023- -Wound care -Pain: norco 5 as needed -Follow-up blood culture -F/up wound culture. #Hypertensive urgency, resolved #Hypertension Chronic, uncontrolled BP elevated >180 SBP on admission. BP is better controlled on current agents. -Amlodipine 10 mg daily -Hydralazine 25 mg TID oral -Coreg 12.5mg BID WB -Will increase oral medication as needed for desired improvement in hypertension; goal BP = 130/80 or less #Type 2 diabetes mellitus, insulin-dependent (A1c 9.7%-12/31/2023) #Obesity A1c 11% 05/2023. Initial glucose 80. -SSI lispro -Will start with 10 units glargine (patient home lantus 30 units daily) -Follow-up A1c #Diabetic neuropathy ?Gabapentin 300 mg orally 3 times daily #Elevated Alkaline phosphatase Possibly 2/2 cancer and possible mets -May consider CT scan for possible cancer mets. -F/up Alk phosp #Polysubstance use Patient has a history of methamphetamine and marijuana use. She states that she uses methamphetamines once weekly and marijuana daily. U tox positive for opiates, thiamine, marijuana. -Educated patient on the importance of discontinuing substance use. Hospital management: Disposition: Admitted for management of acutely decompensated heart failure, KIM on CKD, and osteomyelitis, currently on IV antibiotics. Diet: NPO after midnight Lines: peripheral DVT prophylaxis: heparin SC GI prophylaxis: pantoprazole 40 mg PO daily [place]: yes, strict I/O CODE STATUS: full code Discussed case with my attending Dr. Potter. Thank you, Jennifer Savage, PGY-2 Attending Provider Attestation/Addendum Face to face evaluation was performed by me. I have personally seen and examined the patient. I discussed the assessment and plan with the entire medicine team. I reviewed available medical records, imaging studies, laboratory results. I agree with the above subjective data, objective findings, assessment and plan except as corrected by me or noted below Severe volume overload Bilateral pleural effusions Acute kidney injury on underlying CKD suspect stage IV baseline Possible nephrotic syndrome Diabetes type 2 uncontrolled with hyperglycemia -IV diuresis with Lasix, add albumin as well, nephrology consultation will follow recommendations. Insulins for diabetes Monitor clinical course closely
--- NOTE | 2023-12-31 18:02 | PC.NURSE ---
BS 351. ORDER FOR 10UNITS REG BY DR LUGO SEEN AT THIS TIME ORDERED AT 1659. DR LUGO CALLED AND DR EVANS TOOK THE CALL STATED DR LUGO WAS GONE. INFORMED HIM THAT THE ORDER FOR 10UNITS REG INSULIN WAS MISSED AND PATIENTS BS AT THIS TIME 351. QUESTIONED SHOULD I GIVE THE REG INSULIN OR FOLLOW SLIDING SCALE. STATED TO DISREGARD REG INSULIN ORDER AND COVER BS VIA SLIDING SCALE. DR EVANS CALLED AGAIN TO CLARIFY DIET ORDER STATED WOULD REVIEW CHART AND CLARIFY.
[2023-12-31] MEDS: carVEDILOL 3.125 MG TABLET 12.5 MG PO (18:18)
[2023-12-31] MEDS: SEVELAMER CARBONATE 800 MG TABLET PO (18:19)
--- NOTE | 2023-12-31 18:55 | ESCONSULT_ITS ---
RE: ARVIN FUNEZ : 1975 DATE OF CONSULTATION: 12/31/2023 REFERRING PHYSICIAN: Dr. Lucero REASON FOR CONSULTATION: Osteomyelitis of the left great toe. HISTORY OF PRESENT ILLNESS: The patient is an unfortunate 48-year-old woman, who we saw previously for osteomyelitis about a year ago. She is diabetic. Her A1c is pending. She was negative for HIV and hepatitis C. She has known peripheral vascular disease, is 3 para 3 and history of renal cell cancer with partial nephrectomy, prior right foot amputations, cholecystectomy and 3 C-sections. ALLERGIES: NONE NOTED. IMMUNIZATIONS: Last tetanus is not known. She has not taken flu shot every year, has COVID vaccine once and has had pneumococcal vaccination. FAMILY HISTORY: Positive for cancer . Also had coronary artery disease . SOCIAL HISTORY: She lives with relatives. No longer active smoker. She last smoked about 1 pack in the past. PHYSICAL EXAMINATION: GENERAL: The patient is ill-appearing. She is continued on IV antibiotics and several prominent appearing tattoos. HEENT: Grossly benign. HEART: Grossly benign. LUNGS: Grossly benign. ABDOMEN: Grossly benign. No obvious CVA tenderness. ASSESSMENT: 1. Urinary tract infection. 2. Osteomyelitis of the left great toe. I note that the patient has been on IV antibiotics recently for osteo . amputation would be preferred id possible, followed by few days of oral antibiotic such as Keflex. I will check on her again Friday morning. If you wish to hold off on any changes, I can change antibiotics on friday. I will see her at that time current rx is empirical. DT: 16:33:18 TT: 17:30:00 Ref: [id number] - TID: [id number] MTDD
[2023-12-31] MEDS: SOD POLYSTYRENE SULFON SUSP 15 GM/60 ML BTL 30 GM PO (20:50)
[2023-12-31 23:30] LABS: Anion Gap 10 (7-16); BUN/Creatinine Ratio 17 Ratio (12-20); Blood Urea Nitrogen 57 mg/dL (9-23); Calcium 8.9 mg/dL (8.3-10.6); Carbon Dioxide 19.1 mMol/L (20.0-31.0); Chloride 109 mMol/L (98-107); Creatinine (Component) 3.4 mg/dL (0.6-1.3); Estimated Creatinine Clearance 24.6 mL/min (>60); Glucose 288 mg/dL (74-106); Osmolality,Calculated 302 (275-295); Potassium 4.6 mMol/L (3.4-5.1); Sodium 138 mMol/L (136-145); eGFR 16 See Note
[2024-01-01] VITALS (21 sets, daily range): BP systolic 135–162; BP diastolic 67–108; PULSE 80–92; RESP 13–21; TEMP 36.3–36.9; O2SAT 91–96; BMI 40.9
[2024-01-01] MEDS: HYDROcodone/APAP 5/325 TABLET 1 TAB PO ×2 (03:00→21:37)
[2024-01-01] MEDS: ALBUMIN HUMAN 25% IVPB 25 GM/100 ML BTL IV ×3 (05:05→21:25)
[2024-01-01] MEDS: GABAPENTIN 300 MG CAPSULE PO ×3 (05:08→21:24)
[2024-01-01] MEDS: hydrALAZINE HCL 25 MG TABLET PO ×3 (05:08→21:24)
[2024-01-01 05:45] LABS: Basophils # (Auto) 0.1 Thou/mm3 (0.0-0.2); Basophils % (Auto) 1 % (0-2.5); Eosinophils # (Auto) 0.1 Thou/mm3 (0.0-0.5); Eosinophils % (Auto) 1 % (0-10); Hematocrit 22.3 % (36.0-46.0); Immature Granulocytes % (Auto) 1 % (0-0); Immature Granulocytes Auto 0.11 Thou/mm3 (0.00-0.00); Lymphocytes # (Auto) 1.1 Thou/mm3 (1.0-4.8); Lymphocytes % (Auto) 12 % (10-50); Mean Corpuscular HGB Conc 31.8 g/dl (31.0-37.0); Mean Corpuscular Hemoglobin 29.7 pg (25.0-35.0); Mean Corpuscular Volume 93 fL (80-100); Monocytes % (Auto) 10 % (0-12); Neutrophils # (Auto) 7.2 Thou/mm3 (1.8-7.7); Neutrophils % (Auto) 76 % (37-80); Nucleated Red Blood Cell % 0 /100 WBC (0); Platelet Count 311 Thou/mm3 (140-440); RDW Standard Deviation 46.1 fL (36.4-46.3); Red Blood Count 2.39 Miln/mm3 (4.00-5.20); White Blood Count 9.5 Thou/mm3 (3.6-11.0)
[2024-01-01 05:46] LABS: Hemoglobin 7.1 g/dL (12.0-16.0)
[2024-01-01 06:05] LABS: Alanine Aminotransferase 49 U/L (10-49); Albumin, Serum 3.4 gm/dL (3.5-5.0); Albumin/Globulin Ratio 1.1 (1.2-2.2); Alkaline Phosphatase 390 U/L (46-116); Anion Gap 9 (7-16); Aspartate Amino Transferase 73 U/L (0-34); BUN/Creatinine Ratio 16 Ratio (12-20); Bilirubin,Total 0.2 mg/dL (0.3-1.2); Blood Urea Nitrogen 55 mg/dL (9-23); Calcium 8.3 mg/dL (8.3-10.6); Calcium (Corrected) 8.8 mg/dL (8.5-10.1); Carbon Dioxide 20.1 mMol/L (20.0-31.0); Chloride 109 mMol/L (98-107); Creatinine (Component) 3.4 mg/dL (0.6-1.3); Estimated Creatinine Clearance 24.6 mL/min (>60); Glucose 286 mg/dL (74-106); Magnesium 1.6 mg/dL (1.6-2.6); Osmolality,Calculated 300 (275-295); Phosphorous 5.3 mg/dL (2.4-5.1); Potassium 4.3 mMol/L (3.4-5.1); Sodium 138 mMol/L (136-145); Total Protein 6.4 gm/dL (5.7-8.2); eGFR 16 See Note
[2024-01-01] MEDS: FUROSEMIDE INJ 10 MG/ML 4ML VIAL 40 MG IVP ×3 (06:05→22:33)
[2024-01-01] MEDS: SENNA TABLET 1 TAB PO (08:56)
[2024-01-01] MEDS: PANTOPRAZOLE 40 MG TABLET PO (08:56)
[2024-01-01] MEDS: carVEDILOL 3.125 MG TABLET 12.5 MG PO ×2 (08:56→17:40)
[2024-01-01] MEDS: amLODIPine BESYLATE 5 MG TABLET 10 MG PO (08:56)
[2024-01-01] MEDS: DOXYCYCLINE 100 MG TABLET PO (08:56)
[2024-01-01] MEDS: SEVELAMER CARBONATE 800 MG TABLET PO ×2 (08:56→17:40)
[2024-01-01] MEDS: cefTRIAXone 2 GM in SODIUM CHLORIDE 0.9% (P) 50 ML IV (08:57)
[2024-01-01] MEDS: INSULIN GLARGINE (Lantus) 5 UNIT/0.05 ML (PER 5 UNITS) 10 UNIT SC (08:57)
--- NOTE | 2024-01-01 09:19 | PD.RESPRO ---
Documentation for date of: 01/01/24 Subjective Subjective Interval history: Ms. Costa is a 48 y/o F with PMHx significant for type 2 diabetes mellitus (insulin-dependent), hypertension, kidney cancer status post partial nephrectomy, and history of right foot osteomyelitis status post debridement and amputations now presents with shortness of breath and left great toe pain. Patient states that she has been short of breath for last couple of days, endorsing orthopnea and PND with associated bilateral lower extremity edema, bilateral upper extremity edema, and swelling around the eyes and tongue. She denies chest pain, pressure, and tightness. Also reports pain in left great toe initially with purulent drainage, now with serosanguineous material on bed sheets in ED. Denies fever and chills but endorses sweats. Otherwise denies dysuria, hematuria, or foul-smelling urine. Labs at time of admission showed BUN 48 (baseline 19?22), Format Proofreader 3.0 (baseline 1.5), GFR 18. Chest x-ray showed heart failure pattern, bibasilar pneumonia, moderate left and large right pleural effusions. X-ray of left foot showed significant osteo of distal phalanx of first digit. Patient admitted for CHF exacerbation and left toe osteomyelitis. Nephrology was consulted due to KIM on CKD. Patient seen in ED resting in bed. Patient had bilateral lower extremity edema, worse than usual per patient. Lungs clear to auscultation, poor lung sounds due to body habitus. Labs at time of exam showed sodium 136, potassium 5.5, bicarb 16.3, BUN 51, creatinine 3.0, eGFR 18. Plan for additional diuretics, suspect cardiorenal syndrome due to fluid overload state. 12/31: Patient seen resting comfortably in bed. Patient has lower extremity edema, mildly improved. Lungs clear to auscultation, poor lung sounds due to body habitus. Sodium 138, potassium 4.3, bicarb 20.1, BUN 55, creatinine 2.4, eGFR 16. Plan for amputation of left great toe later today. Exam Vital Signs Temp Pulse Resp BP Pulse Ox O2 Del Method O2 Flow Rate 97.4 F 87 17 156/87 H 93 L Nasal Cannula 1 01/01/24 08:00 01/01/24 08:56 01/01/24 08:00 01/01/24 08:56 01/01/24 08:00 01/01/24 08:00 01/01/24 08:00 Narrative Exam PE: Gen: Well-developed and well-nourished. HEENT: NCAT, PERRLA, EOMI, MMM, anicteric conjunctivae. CVS: normal S1 and S2. RRR. No M/R/G. Resp: CTA B/L. No rhonchi, rales, crackles or wheezing. Poor lung sounds due to body habitus. Abd: soft, non-tender, non-distended. MSK: Good ROM in BUE & BLE. No rash. Bilateral lower extremity edema. Partial amputation of right foot. Left great toe erythematous, tender. Neuro: CN II-XII grossly intact. Strength 5/5 in BUE & BLE. Alert and oriented x3. Psych: appropriate mood and affect. Objective Labs 01/01/24 05:18 01/01/24 05:18 Labs: Laboratory Results - last 24 hr 12/31/23 12/31/23 12/31/23 04:30 11:09 11:11 WBC RBC Hgb Hct MCV MCH MCHC RDW Std Deviation Plt Count Neut % (Auto) Lymph % (Auto) [place] % (Auto) Eos % (Auto) Baso % (Auto) Neut # (Auto) Lymph # (Auto) [place] # (Auto) Eos # (Auto) Baso # (Auto) Immature Gran # (Auto) Absolute Nucleated RBC Immature Gran % Nucleated RBC % Sodium 136 Potassium 5.5 H Chloride 110 H Carbon Dioxide 16.3 L Anion Gap 10 BUN 51 H Creatinine 3.0 H Estim Creat Clear Calc 27.5 L eGFR 18 L BUN/Creatinine Ratio 17 Glucose 329 H Calculated Osmolality 298 H Calcium 8.8 Corrected Calcium Phosphorus Magnesium Total Bilirubin AST ALT Alkaline Phosphatase Lactate Dehydrogenase 215 Total Protein Albumin Globulin Albumin/Globulin Ratio Triglycerides 95 Cholesterol 201 H LDL Cholesterol, Calc 118 HDL Cholesterol 64 H Cholesterol/HDL Ratio 3.1 L Ur Random Creatinine U Random Total Protein 449 H Ur Random Sodium 12/31/23 12/31/23 01/01/24 13:06 22:42 05:18 WBC 9.5 RBC 2.39 L Hgb 7.1 L Hct 22.3 L MCV 93 MCH 29.7 MCHC 31.8 RDW Std Deviation 46.1 Plt Count 311 D Neut % (Auto) 76 Lymph % (Auto) 12 [place] % (Auto) 10 Eos % (Auto) 1 Baso % (Auto) 1 Neut # (Auto) 7.2 Lymph # (Auto) 1.1 [place] # (Auto) 1.0 H Eos # (Auto) 0.1 Baso # (Auto) 0.1 Immature Gran # (Auto) 0.11 H Absolute Nucleated RBC 0.00 Immature Gran % 1 H Nucleated RBC % 0 Sodium 138 138 Potassium 4.6 D 4.3 Chloride 109 H 109 H Carbon Dioxide 19.1 L 20.1 Anion Gap 10 9 BUN 57 H 55 H Creatinine 3.4 H 3.4 H Estim Creat Clear Calc 24.6 L 24.6 L eGFR 16 L 16 L BUN/Creatinine Ratio 17 16 Glucose 288 H 286 H Calculated Osmolality 302 H 300 H Calcium 8.9 8.3 Corrected Calcium 8.8 Phosphorus 5.3 H Magnesium 1.6 Total Bilirubin 0.2 L AST 73 H ALT 49 Alkaline Phosphatase 390 H Lactate Dehydrogenase Total Protein 6.4 Albumin 3.4 L Globulin 3.0 Albumin/Globulin Ratio 1.1 L Triglycerides Cholesterol LDL Cholesterol, Calc HDL Cholesterol Cholesterol/HDL Ratio Ur Random Creatinine 23 L U Random Total Protein 382 H Ur Random Sodium 96.0 Quality Measures Quality Measures none Assessment & Plan Assessment Current Active Medications: Generic Name Dose Route Start Last Admin Trade Name Freq PRN Reason Stop Dose Admin Acetaminophen 650 mg 01/01/24 08:16 Acetaminophen 325 Mg Tablet PO 01/29/24 20:51 Q6H PRN MILD PAIN (1-3) OR FEVER > 101 Hydrocodone Bitart/Acetaminophen 1 tab 12/30/23 20:52 01/01/24 03:00 Hydrocodone/Apap 5/325 Tablet PO 01/04/24 20:51 1 tab Q6HR PRN Administration PAIN SCALE 4-10(Mod-Sev Amlodipine Besylate 10 mg 12/31/23 09:00 01/01/24 08:56 Amlodipine Besylate 5 Mg Tablet PO 01/30/24 08:59 10 mg QDAY KARY Administration Carvedilol 12.5 mg 12/31/23 17:30 01/01/24 08:56 Carvedilol 3.125 Mg Tablet PO 01/30/24 17:29 12.5 mg BIDWM KARY Administration Dextrose 25 ml 12/30/23 21:05 Dextrose 50%-Water Inj 50 Ml Syringe IV 01/29/24 21:04 Q15MIN PRN BG 50-70 responsive npo pt Dextrose 50 ml 12/30/23 21:05 Dextrose 50%-Water Inj 50 Ml Syringe IV 01/29/24 21:04 Q15MIN PRN BG <50 OR BG <70 & pt unresponsive Doxycycline Hyclate 100 mg 12/31/23 11:15 01/01/24 08:56 Doxycycline 100 Mg Tablet PO 01/07/24 11:14 100 mg QDAY KARY Administration Furosemide 40 mg 12/31/23 14:01 01/01/24 06:05 Furosemide Inj 10 Mg/Ml 4ml Vial IVP 01/30/24 13:59 40 mg Q8H KARY Administration Gabapentin 300 mg 12/30/23 22:00 01/01/24 05:08 Gabapentin 300 Mg Capsule PO 01/29/24 21:59 300 mg TID KARY Administration Glucagon 1 mg 12/30/23 21:05 Glucagon Inj 1 Mg Vial IM Q15MIN PRN BG <70, and no IV access Heparin Sodium (Porcine) 5,000 unit 12/31/23 09:00 01/01/24 08:57 Heparin Sod Inj 5000 Unit/Ml Vial SC 01/14/24 08:59 Not Given Q12HR KARY Hydralazine HCl 25 mg 12/31/23 09:00 01/01/24 05:08 Hydralazine Hcl 25 Mg Tablet PO 01/30/24 08:59 25 mg TID KARY Administration Hydroxyzine HCl 25 mg 12/31/23 00:07 12/31/23 21:09 Hydroxyzine Hcl 25 Mg Tablet PO 01/30/24 00:06 25 mg HS PRN Administration insom Ceftriaxone Sodium 2 gm/ 50 mls @ 100 mls/hr 12/31/23 14:00 01/01/24 08:57 Sodium Chloride IV 01/07/24 13:59 100 mls/hr QDAY KARY Administration Albumin Human 25 gm in 100 mls @ 100 mls/hr 12/31/23 14:00 01/01/24 05:05 Albuminar-25 Ivpb IV 01/03/24 13:59 100 mls/hr Q8HR KARY Administration Insulin Glargine 15 unit 01/02/24 09:00 Insulin Glargine (Lantus) 5 Unit/0.05 Ml (Per 5 Units) SC 02/01/24 08:59 DAILY [facility] Insulin Human Lispro 0 unit 01/01/24 06:00 01/01/24 05:12 Insulin Lispro (Admelog) 1 Unit/0.01 Ml Unit SC 01/31/24 05:59 Not Given Q6HR [facility] Protocol Ondansetron HCl 4 mg 12/30/23 20:52 Ondansetron Inj 2 Mg/Ml Inj 2 Ml IV 01/29/24 20:51 Q6H PRN NAUSEA OR VOMITING Protocol Pantoprazole Sodium 40 mg 12/31/23 09:00 01/01/24 08:56 Pantoprazole 40 Mg Tablet PO 01/30/24 08:59 40 mg QDAY KARY Administration Sennosides 1 tab 12/31/23 09:00 01/01/24 08:56 Senna Tablet PO 01/30/24 08:59 1 tab QDAY KARY Administration Protocol Sevelamer Carbonate 800 mg 12/31/23 17:30 01/01/24 08:56 Sevelamer Carbonate 800 Mg Tablet PO 01/30/24 17:29 800 mg TIDWM KARY Administration Plan Tati Costa is a 48-year-old female with past medical history of type 2 diabetes mellitus (insulin-dependent), hypertension, kidney cancer status post partial nephrectomy, and history of right foot osteomyelitis status post debridement and amputations admitted for CHF and left great toe osteomyelitis work-up and management. #Acute on chronic kidney injury #CKD stage IV #Nephrotic syndrome Patient presented with poor kidney function, BUN, creatinine elevated above baseline. Patient has history of CHF, appears to be in CHF exacerbation clinically based on reported symptoms of orthopnea, exam findings of bilateral lower extremity edema increased compared to baseline per patient. Concern for nephrotic syndrome given findings: Random urine creatinine 23, random urine total protein to 82, random urine sodium 96. Renal ultrasound showed no hydronephrosis or renal stones. BLE mildly improved with diuresis. Plan: -Renally dose medications -Avoid nephrotoxic meds -Follow daily labs -Diuretics: Lasix 40 mg IV every 8 hours # ?New onset CHF #Anasarca #Osteomyelitis, left great toe #History of osteomyelitis, right foot #Type 2 diabetes mellitus, insulin-dependent #Hypertension #Hypertensive urgency Plan as per primary team Thank you for allowing me to participate in the care of this patient. Plan of care discussed with attending Dr. Moreland. Lane Kenney MD PGY-1 Attending Provider Attestation/Addendum Patient seen and examined with resident physician Dr. Kenney. Note reviewed, agree with plan and recommendations Patient complaining of severe edema// shortness of breath. Chest x-ray showed vascular congestion. She has DM x years with D. retinopathy, PVD, toe amputations. Up/cr 16.6g- consistent with severe, progressive diabetic nephropathy causing anasarca. Continue diuretics as needed. Will monitor renal function closely. She needs renal f/u as OP. Might ened up on dialysis down the road. Going for left great toe amputation. Thank you Dr. Potter for allowing me to participate in the care of Ms Costa.
--- NOTE | 2024-01-01 10:06 | ESPR_ITS ---
Documentation for date of: 01/01/24 Subjective Subjective Interval history: Patient endorses chills overnight. Otherwise, absence of acute overnight events. Patient seen and examined at bedside. Labs were reviewed. She feels that her shortness of breath is improving. Bilateral hands still appear slightly swollen but improving. Patient denies headache, fever,chest pain, palpitation, nausea, vomiting, diarrhea, or constipation. Bilateral lower extremities have diminished nonpitting edema. Lung auscultation shows diminished lung sounds on bilateral lower lobes. Dr Wiseman will do amputation of the left great toe. Dr. Morris recommends to start oral antibiotics for a total of 4 to 5 days after amputation. Oral Keflex and doxycycline will be started for foot ulcer. Exam Vital Signs Temp Pulse Resp BP Pulse Ox O2 Del Method O2 Flow Rate 97.4 F 87 17 156/87 H 93 L Nasal Cannula 1 01/01/24 08:00 01/01/24 08:56 01/01/24 08:00 01/01/24 08:56 01/01/24 08:00 01/01/24 08:00 01/01/24 08:00 Narrative Exam Constitutional: well-developed, well-nourished, legally blind b/l, lying in bed. HEENT: NCAT, reactive round pupils b/l,on 4L nasal cannula Lung: CTAB, no wheezing, no rhonchi, no crackles, diminished breath sounds of lower lobes bilaterally Heart: Regular S1S2, no murmurs, gallops, or rubs Abdomen: Soft, non-distended, non-tender, +++bowel sounds. Extremities: No cyanosis, clubbing, 1+ nonpitting edema of left leg, dorsalis pedis pulses present b/l Neurologic: No focal sensory or motor deficits noted, generally alert and oriented to person, place, time. Skin: Warm, dry, no lesions or rashes noted Objective Labs 01/04/24 04:36 01/04/24 04:36 Labs: Laboratory Results - last 24 hr 12/31/23 12/31/23 12/31/23 11:09 11:11 13:06 WBC RBC Hgb Hct MCV MCH MCHC RDW Std Deviation Plt Count Neut % (Auto) Lymph % (Auto) [place] % (Auto) Eos % (Auto) Baso % (Auto) Neut # (Auto) Lymph # (Auto) [place] # (Auto) Eos # (Auto) Baso # (Auto) Immature Gran # (Auto) Absolute Nucleated RBC Immature Gran % Nucleated RBC % Sodium 136 Potassium 5.5 H Chloride 110 H Carbon Dioxide 16.3 L Anion Gap 10 BUN 51 H Creatinine 3.0 H Estim Creat Clear Calc 27.5 L eGFR 18 L BUN/Creatinine Ratio 17 Glucose 329 H Calculated Osmolality 298 H Calcium 8.8 Corrected Calcium Phosphorus Magnesium Total Bilirubin AST ALT Alkaline Phosphatase Total Protein Albumin Globulin Albumin/Globulin Ratio Ur Random Creatinine 23 L U Random Total Protein 449 H 382 H Ur Random Sodium 96.0 12/31/23 01/01/24 22:42 05:18 WBC 9.5 RBC 2.39 L Hgb 7.1 L Hct 22.3 L MCV 93 MCH 29.7 MCHC 31.8 RDW Std Deviation 46.1 Plt Count 311 D Neut % (Auto) 76 Lymph % (Auto) 12 [place] % (Auto) 10 Eos % (Auto) 1 Baso % (Auto) 1 Neut # (Auto) 7.2 Lymph # (Auto) 1.1 [place] # (Auto) 1.0 H Eos # (Auto) 0.1 Baso # (Auto) 0.1 Immature Gran # (Auto) 0.11 H Absolute Nucleated RBC 0.00 Immature Gran % 1 H Nucleated RBC % 0 Sodium 138 138 Potassium 4.6 D 4.3 Chloride 109 H 109 H Carbon Dioxide 19.1 L 20.1 Anion Gap 10 9 BUN 57 H 55 H Creatinine 3.4 H 3.4 H Estim Creat Clear Calc 24.6 L 24.6 L eGFR 16 L 16 L BUN/Creatinine Ratio 17 16 Glucose 288 H 286 H Calculated Osmolality 302 H 300 H Calcium 8.9 8.3 Corrected Calcium 8.8 Phosphorus 5.3 H Magnesium 1.6 Total Bilirubin 0.2 L AST 73 H ALT 49 Alkaline Phosphatase 390 H Total Protein 6.4 Albumin 3.4 L Globulin 3.0 Albumin/Globulin Ratio 1.1 L Ur Random Creatinine U Random Total Protein Ur Random Sodium Quality Measures Quality Measures none Assessment & Plan Assessment Current Active Medications: Generic Name Dose Route Start Last Admin Trade Name Freq PRN Reason Stop Dose Admin Acetaminophen 650 mg 01/01/24 08:16 Acetaminophen 325 Mg Tablet PO 01/29/24 20:51 Q6H PRN MILD PAIN (1-3) OR FEVER > 101 Hydrocodone Bitart/Acetaminophen 1 tab 11/05/24 20:52 01/01/24 03:00 Hydrocodone/Apap 5/325 Tablet PO 01/04/24 20:51 1 tab Q6HR PRN Administration PAIN SCALE 4-10(Mod-Sev Amlodipine Besylate 10 mg 12/31/23 09:00 01/01/24 08:56 Amlodipine Besylate 5 Mg Tablet PO 01/30/24 08:59 10 mg QDAY KARY Administration Carvedilol 12.5 mg 12/31/23 17:30 01/01/24 08:56 Carvedilol 3.125 Mg Tablet PO 01/30/24 17:29 12.5 mg BIDWM KARY Administration Dextrose 25 ml 12/30/23 21:05 Dextrose 50%-Water Inj 50 Ml Syringe IV 01/29/24 21:04 Q15MIN PRN BG 50-70 responsive npo pt Dextrose 50 ml 12/30/23 21:05 Dextrose 50%-Water Inj 50 Ml Syringe IV 01/29/24 21:04 Q15MIN PRN BG <50 OR BG <70 & pt unresponsive Doxycycline Hyclate 100 mg 12/31/23 11:15 01/01/24 08:56 Doxycycline 100 Mg Tablet PO 01/07/24 11:14 100 mg QDAY AKRY Administration Furosemide 40 mg 12/31/23 14:01 01/01/24 06:05 Furosemide Inj 10 Mg/Ml 4ml Vial IVP 01/30/24 13:59 40 mg Q8H KARY Administration Gabapentin 300 mg 12/30/23 22:00 01/01/24 05:08 Gabapentin 300 Mg Capsule PO 01/29/24 21:59 300 mg TID KARY Administration Glucagon 1 mg 12/30/23 21:05 Glucagon Inj 1 Mg Vial IM Q15MIN PRN BG <70, and no IV access Heparin Sodium (Porcine) 5,000 unit 12/31/23 09:00 01/01/24 08:57 Heparin Sod Inj 5000 Unit/Ml Vial SC 01/14/24 08:59 Not Given Q12HR KARY Hydralazine HCl 25 mg 12/31/23 09:00 01/01/24 05:08 Hydralazine Hcl 25 Mg Tablet PO 01/30/24 08:59 25 mg TID KARY Administration Hydroxyzine HCl 25 mg 12/31/23 00:07 12/31/23 21:09 Hydroxyzine Hcl 25 Mg Tablet PO 01/30/24 00:06 25 mg HS PRN Administration insom Ceftriaxone Sodium 2 gm/ 50 mls @ 100 mls/hr 12/31/23 14:00 01/01/24 08:57 Sodium Chloride IV 01/07/24 13:59 100 mls/hr QDAY KARY Administration Albumin Human 25 gm in 100 mls @ 100 mls/hr 12/31/23 14:00 01/01/24 05:05 Albuminar-25 Ivpb IV 01/03/24 13:59 100 mls/hr Q8HR KARY Administration Insulin Glargine 15 unit 01/02/24 09:00 Insulin Glargine (Lantus) 5 Unit/0.05 Ml (Per 5 Units) SC 02/01/24 08:59 DAILY KARY Insulin Human Lispro 0 unit 01/01/24 06:00 01/01/24 05:12 Insulin Lispro (Admelog) 1 Unit/0.01 Ml Unit SC 01/31/24 05:59 Not Given Q6HR KARY Protocol Ondansetron HCl 4 mg 12/30/23 20:52 Ondansetron Inj 2 Mg/Ml Inj 2 Ml IV 01/29/24 20:51 Q6H PRN NAUSEA OR VOMITING Protocol Pantoprazole Sodium 40 mg 12/31/23 09:00 01/01/24 08:56 Pantoprazole 40 Mg Tablet PO 01/30/24 08:59 40 mg QDAY KARY Administration Sennosides 1 tab 12/31/23 09:00 01/01/24 08:56 Senna Tablet PO 01/30/24 08:59 1 tab QDAY KARY Administration Protocol Sevelamer Carbonate 800 mg 12/31/23 17:30 01/01/24 08:56 Sevelamer Carbonate 800 Mg Tablet PO 01/30/24 17:29 800 mg TIDWM KARY Administration Plan a 48-year-old female with past medical history of type 2 diabetes mellitus (insulin-dependent), hypertension, kidney cancer status post partial nephrectomy, and history of right foot osteomyelitis status post debridement and amputations. Found to be septic with HR 104, WBC elevated, Cr at 3.0. Admitted for CHF and left great toe osteomyelitis work-up and management. #Acutely decompensated congestive heart failure Most likely secondary to hypertension Initially, patient presented with shortness of breath,orthopnea,and PND, requiring oxygen. On physical exam, diminished breath sounds bilateral lower lung lobes. 1+ pitting edema upper extremities, improving. Lower extremity edema improving from the shins to the feet. Found to have mild chronic heart failure, mild enlargement cardiac contour with prominent vascular congestion confirmed on chest x-ray. Suspect longstanding history of hypertension and obesity resulted in patient's decompensated heart failure. Cannot rule out cardiorenal in setting of partial nephrectomy leading to possible dysfunction in left kidney. Echo 06/22/2023: EF 60-65%, trace MR, AR, and mild TR. BNP mildly elevated at 165, troponin negative. Output ~ -900 cc, currently on Corral catheter. Weight remains at 111.58. NYHA class III. Plan: -Continue Lasix 40 mg IV every 8 hours. -Fluid restriction (1.2 L), daily weight checks, Strict I & O -Follow-up echo -CMP in am #Acute on chronic kidney injury #CKD stage IV #Hyperchloremia, stable #Nephrotic syndrome, likely #Kidney cancer history Patient was found to have electrolyte derrangements and elevated creatinine/low GFR. Renal ultrasound showed: Right kidney 12.3 x 7.2 x 7.1 cm cortex 2.2 cm. Right kidney 11.8 x 6.2 x 5.7 cm cortex 2.3 cm. No hydronephrosis or renal calculi. Bladder prevoid volume 2 87 cc unable to void. Urine random total protein 382. Urine random creatinine 23. Urine random sodium 96. Creatinine is 3.4, GFR decreased from 18 to 16. Plan: -Be cautious with fluids in setting of fluid overload CHF. -albumin -Nephrology consulted; recommends okay to continue IV Lasix for decompensated heart failure -Follow-up US of kidneys #Osteomyelitis, left great toe #History of osteomyelitis, right foot #S/p left 1st metatarsal amputation on 01/01/2024 #Leukocytosis Patient presented with pain in the left foot after hitting it against an object. She met 2/4 SIRS criteria: Heart rate 104, WBC 11.5. On-going open foot ulcer x2 weeks, likely longer. XR and MRI of the left foot showed osteomyelitis of the proximal and distal phalanges first digit. The distal metatarsal head was divided and transmetatarsal amputation was performed by general surgeon. Plan: -Infectious disease was consulted; recommends oral antibiotics for a few days after amputation -General surgery consulted; amputated transmetatarsal -carbohydrate consistent diet -Pain: norco 5 as needed -Follow-up blood culture -Wound care Antimicrobials: -Keflex 500 mg every 6 hours (01/01/2024 -Doxycycline 100 mg IV BID (12/29-12/31) and Ceftriaxone 2gm daily (12/31/2023- 01/01/24) #Normocytic anemia Patient is asymptomatic. Denies dizziness or generalized weakness. Hemoglobin 8.8 on 12/29 in ED. Hemoglobin currently 7.1. -Gastroenterology consult; appreciate recommendations -FOBT ordered; f/up -F/up CBC #B/L Pleural effusion, confirmed on xray Ultrasound-guided thoracentesis showed small bilateral perfusion, no drainage done. Serum LDH is 215. -Will consider thoracenthesis if symptoms worsen but anticipate improvement with aggressive diuresis #Hypertensive urgency, resolved #Hypertension Chronic, uncontrolled BP elevated >180 SBP on admission. BP is well controlled. -Amlodipine 10 mg daily -Hydralazine 25 mg TID oral -Coreg 12.5mg BID WM -Will increase oral medication as needed for desired improvement in hypertension; goal BP = 130/80 or less #Type 2 diabetes mellitus, insulin-dependent (A1c 9.7%-12/31/2023) #Obesity A1c 11% 05/2023. Glucose elevated at 287. -SSI lispro -10 units glargine increased to 15units. (patient home lantus 30 units daily) #Diabetic neuropathy Hx of Diabetic neuropathy. ?Gabapentin 300 mg orally 3 times daily #Mild transaminitis Differential diagnosis: MASH (metabolic dysfunction?associated hepatosteatosis) vs hepatitis B or C AST 73. 49. -f/up AST, ALT -Lipid panel ordered; f/up -Hepatitis panel; f/up #Elevated Alkaline phosphatase Possibly 2/2 cancer and possible mets -May consider CT scan for possible cancer mets. -F/up Alk phosp #Polysubstance use Patient has a history of methamphetamine and marijuana use. She states that she uses methamphetamines once weekly and marijuana daily. U tox positive for opiates, thiamine, marijuana. -Educated patient on the importance of discontinuing substance use. #Sepsis -resolved #Hyperkalemia, resolved #Hyperphosphatemia- resolved #Metabolic acidosis, resolved Hospital management: Disposition: Admitted for management of acutely decompensated heart failure, KIM on CKD-improving, and osteomyelitis s/p amputation left great toe. IV antibiotics changed to oral ABX. Will discharge home once stable. Diet: Carbohydrate consistent DVT prophylaxis: heparin SC GI prophylaxis: pantoprazole 40 mg PO daily Corral: yes, strict I/O CODE STATUS: full code Discussed case with my attending Dr. Potter. Thank you, Jennifer Savage, PGY-2 Attending Provider Attestation/Addendum Face to face evaluation was performed by me. I have personally seen and examined the patient. I discussed the assessment and plan with the entire medicine team. I reviewed available medical records, imaging studies, laboratory results. I agree with the above subjective data, objective findings, assessment and plan except as corrected by me or noted below Severe volume overload Bilateral pleural effusions Acute kidney injury on underlying CKD suspect stage IV baseline Possible nephrotic syndrome Diabetes type 2 uncontrolled with hyperglycemia Left foot osteomyelitis and cellulitis -Surgery for amputation for osteomyelitis , plan to treat with oral antibiotics for cellulitis of left foot. I believe there are no surgical cultures obtained. -IV diuresis with Lasix, add albumin as well, nephrology consultation will follow recommendations. Insulins for diabetes Monitor clinical course closely
--- NOTE | 2024-01-01 11:46 | ESOP_ITS ---
Date of Procedure 01/01/24 Pre Op Diagnosis Osteomyelitis of left first toe Post Op Diagnosis Osteomyelitis of left first toe Procedure Transmetatarsal amputation of left first toe Findings Edematous with erythema and chronic ulceration of left first toe Procedure Description Patient brought into the operating room in supine position. After administration of monitored anesthesia care and left ankle block patient's left foot prepped and draped in standard surgical manner. An elliptical incision was made around the left first toe and dissection was deepened into soft tissue. The underlying tendinous attachments were divided. The distal metatarsal head was divided and transmetatarsal amputation was performed. The wound was washed and irrigated with Betadine mixed with peroxide and saline, further washed with warm saline. Patient was noted to have excellent circulation. Incision was closed with simple interrupted sutures using 2-0 nylon. An approximately 2 cm opening was left at the mid aspect of the incision and it was packed with wet-to-dry dressings. Patient tolerated procedure well. She was breathing spontaneously and without difficulty and was transferred to postanesthesia care in stable condition. Instruments, needles and sponge counts were reported to be correct x 2. Anesthesia MAC and regional (Left ankle block) Pathology / specimen Other (Left first toe) Estimated Blood Loss 25 Condition Stable Disposition PACU Surgeon Juana Wiseman MD Surgical Staff Operation Date: 01/01/24 11:15 Case Staff Anesthesiologist: Rios Rm RNmicrosoft application developer: Leida Hurtado
--- NOTE | 2024-01-01 11:50 | SUR.PHASEI ---
1150 Patient arrived to recovery resting comfortably in [facility], drowsy and talking with staff, on oxygen 4L via nasal cannula, breathing unlabored, vital signs stable, denies pain, dressing intact to left foot; sutures, fluffs, kerlix roll, silk tape, no bleeding noted, lung sounds clear upon auscultation, bilateral radial pulses present when palpated, lung sounds clear upon auscultation, bilateral radial pulses present when palpated, urinary catheter 16F in place; draining to gravity, report received from Dr. Rm and Marin ESTRADA
--- NOTE | 2024-01-01 12:23 | SUR.PHASEI ---
patient eating ice chips tolerating well
--- NOTE | 2024-01-01 12:35 | SUR.PHASEI ---
1228 Report given to Brittny ESTRADA, patient meets discharge criteria from recovery, awake and talking with staff, on oxygen 4L via nasal cannula, breathing unlabored, vital signs stable, denies pain, dressing intact; no bleeding noted, patient eating ice chips, tolerating well, denies nausea 1235 Patient transported via bed to room 374 without incident, SEED BUYER promptly in patient room, patient has call light in reach when this health science writer left patients room.
--- NOTE | 2024-01-01 12:38 | CHAP ---
10:30 AM Visited by spiritual care volunteer Provided prayer for Patient.
[2024-01-01] MEDS: MORPHINE SULF INJ 10 MG/ML VIAL 3 MG IVP (14:30)
--- NOTE | 2024-01-01 14:56 | PC.DIETICIAN ---
Dietitian consult: Pt requesting CGM Doctor Evidence Zoey 2 w/ reader so her brother can assist with blood sugar monitoring. She doesn't have any glucometer at home and takes insulin. Thank you
[2024-01-01] MEDS: LACTULOSE SYRUP 20 GM/30 ML UDC PO (15:42)
--- NOTE | 2024-01-01 15:44 | PC.SS ---
Pt provided correct for phone number for his bother, Steven Weaver, phone# is [phone]. SS has called Mima from pt registration to make corrects on patient's facesheet, per patient's request.
[2024-01-01] MEDS: INSULIN LISPRO (AdmeLOG) 1 UNIT/0.01 ML UNIT SC ×2 (17:43→21:32)
--- NOTE | 2024-01-01 21:13 | PD.IMCONS ---
HPI Data of Consult Requesting Physician: Neri Potter MD Primary Care Provider: Physician No Primary/Family Consult Narrative Reason for consult: Anemia blood loss FOBT positive History of present illness: 48 years old female presented to the hospital with shortness of breath left great toe pain since then she has undergone metatarsal amputation of the left great toe by Dr. Wiseman She is found to be anemic with a hemoglobin of 7.1 g and Hemoccult positive stool have been consulted Patient does have a history of diabetes mellitus type 2 essential hypertension and right foot osteomyelitis in the past cc:: cc: Neri Potter MD Review of Systems Review of Systems Systems Reviewed: All systems reviewed, normal except as documented Past Medical History Surgical History OTHER SURGICAL HX: As in the history of present illness Meds Home Medications and Allergies Home Medications ?Medication ?Instructions ?Recorded ?Confirmed ?Type gabapentin 600 mg tablet 1,200 mg PO TID 06/16/20 12/30/23 History Allergies Allergy/AdvReac Type Severity Reaction Status Date / Time No Known Allergies Allergy Verified 06/06/23 15:59 Exam Vital Signs Temp Pulse Resp BP Pulse Ox O2 Del Method O2 Flow Rate 97.6 F 87 21 H 142/67 H 94 L Nasal Cannula 4 01/01/24 20:00 01/01/24 20:00 01/01/24 20:00 01/01/24 20:00 01/01/24 20:00 01/01/24 20:00 01/01/24 20:00 Constitutional Comments: Chronically ill-appearing Routine Respiratory Exam Comments: Normal to auscultation Routine Abdominal Exam Comments: Soft nontender Results Labs 01/01/24 05:18 01/01/24 05:18 Labs: Short CBC 01/01/24 Range/Units 05:18 WBC 9.5 (3.6-11.0) Thou/mm3 Hgb 7.1 L (12.0-16.0) g/dL Hct 22.3 L (36.0-46.0) % Plt Count 311 D (140-440) Thou/mm3 BMP 12/31/23 01/01/24 22:42 05:18 Sodium 138 138 Potassium 4.6 D 4.3 Chloride 109 H 109 H Carbon Dioxide 19.1 L 20.1 BUN 57 H 55 H Creatinine 3.4 H 3.4 H Glucose 288 H 286 H Calcium 8.9 8.3 Liver Function 01/01/24 Range/Units 05:18 Total Bilirubin 0.2 L (0.3-1.2) mg/dL AST 73 H (0-34) U/L ALT 49 (10-49) U/L Alkaline Phosphatase 390 H (46-116) U/L Albumin 3.4 L (3.5-5.0) gm/dL Assessment and Plan Additional Assessment & Plan Additional Plan: # Occult GI bleeding # FOBT positive # Acute posthemorrhagic anemia Plan Invasive GI workup initially with EGD if that is negative will be followed by fiberoptic colonoscopy N.p.o. midnight tonight except p.o. meds Procedure has been tentatively scheduled for tomorrow Will follow the patient Other medical problems include # Diabetes mellitus type 2 # Left great toe osteomyelitis status post transmetatarsal amputation # Essential hypertensin Thank you very much for the opportunity to participate in the care of this patient
[2024-01-01] MEDS: ASCORBIC ACID 250 MG TABLET 500 MG PO (21:24)
[2024-01-02] VITALS (28 sets, daily range): BP systolic 142–188; BP diastolic 62–94; PULSE 77–97; RESP 12–93; TEMP 36.2–37.1; O2SAT 90–98; BMI 39.2
[2024-01-02] MEDS: HYDROcodone/APAP 5/325 TABLET 1 TAB PO (03:35)
[2024-01-02] MEDS: hydrALAZINE HCL 25 MG TABLET PO ×3 (05:00→21:25)
[2024-01-02] MEDS: GABAPENTIN 300 MG CAPSULE PO ×3 (05:00→21:25)
[2024-01-02] MEDS: ALBUMIN HUMAN 25% IVPB 25 GM/100 ML BTL IV ×3 (05:00→21:31)
[2024-01-02] MEDS: FUROSEMIDE INJ 10 MG/ML 4ML VIAL 40 MG IVP (05:56)
[2024-01-02 05:58] LABS: Cardiac Risk Estimate 3.2 RATIO (3.7-5.6); Cholesterol 146 mg/dL (132-200); HDL Cholesterol 46 mg/dL (40-60); LDL Cholesterol,Calculated 69 mg/dL (0-130); Magnesium 1.4 mg/dL (1.6-2.6); Phosphorous 5.8 mg/dL (2.4-5.1); Triglycerides 156 mg/dL (30-150)
[2024-01-02] MEDS: MORPHINE SULF INJ 10 MG/ML VIAL 3 MG IVP ×3 (06:22→17:39)
[2024-01-02 06:38] LABS: Hepatitis A Antibody IgM Non Reactive (Non React); Hepatitis B Core Antibody IgM Non Reactive (Non React); Hepatitis B Surface Antigen Non Reactive (Non React); Hepatitis C Antibody Non Reactive (Non React)
[2024-01-02] MEDS: INSULIN LISPRO (AdmeLOG) 1 UNIT/0.01 ML UNIT SC (07:47)
[2024-01-02 08:22] LABS: Albumin, Serum 3.9 gm/dL (3.5-5.0); Anion Gap 10 (7-16); BUN/Creatinine Ratio 16 Ratio (12-20); Blood Urea Nitrogen 61 mg/dL (9-23); Calcium 8.1 mg/dL (8.3-10.6); Calcium (Corrected) 8.2 mg/dL (8.5-10.1); Chloride 110 mMol/L (98-107); Creatinine (Component) 3.8 mg/dL (0.6-1.3); Estimated Creatinine Clearance 21.1 mL/min (>60); Glucose 185 mg/dL (74-106); Osmolality,Calculated 301 (275-295); Potassium 4.1 mMol/L (3.4-5.1); Sodium 140 mMol/L (136-145); eGFR 14 See Note
[2024-01-02 08:30] LABS: Basophils % (Auto) 0 % (0-2.5); Eosinophils # (Auto) 0.1 Thou/mm3 (0.0-0.5); Eosinophils % (Auto) 1 % (0-10); Hematocrit 22.5 % (36.0-46.0); Immature Granulocytes % (Auto) 1 % (0-0); Immature Granulocytes Auto 0.09 Thou/mm3 (0.00-0.00); Lymphocytes # (Auto) 1.1 Thou/mm3 (1.0-4.8); Lymphocytes % (Auto) 11 % (10-50); Mean Corpuscular HGB Conc 31.6 g/dl (31.0-37.0); Mean Corpuscular Hemoglobin 29.5 pg (25.0-35.0); Mean Corpuscular Volume 93 fL (80-100); Monocytes % (Auto) 10 % (0-12); Neutrophils # (Auto) 7.5 Thou/mm3 (1.8-7.7); Neutrophils % (Auto) 76 % (37-80); Nucleated Red Blood Cell # 0.02 Thou/mm3 (0.00-0.00); Nucleated Red Blood Cell % 0 /100 WBC (0); Platelet Count 302 Thou/mm3 (140-440); RDW Standard Deviation 47.6 fL (36.4-46.3); Red Blood Count 2.41 Miln/mm3 (4.00-5.20); White Blood Count 9.9 Thou/mm3 (3.6-11.0)
[2024-01-02] MEDS: PANTOPRAZOLE INJ 40 MG VIAL IV (08:53)
[2024-01-02] MEDS: cephALEXin 250 MG CAPSULE 500 MG PO ×2 (08:53→21:25)
[2024-01-02] MEDS: SENNA TABLET 1 TAB PO (08:54)
[2024-01-02] MEDS: amLODIPine BESYLATE 5 MG TABLET 10 MG PO (08:54)
[2024-01-02] MEDS: ASCORBIC ACID 250 MG TABLET 500 MG PO ×2 (08:55→21:25)
[2024-01-02] MEDS: ZINC SULFATE 220 MG CAPSULE PO (08:55)
[2024-01-02] MEDS: SEVELAMER CARBONATE 800 MG TABLET PO ×2 (08:55→12:30)
[2024-01-02 08:56] LABS: Hemoglobin 7.1 g/dL (12.0-16.0)
[2024-01-02] MEDS: Magnesium Sulfate 4 GM Ivpb 4 GM/50 ML BAG IV (08:56)
[2024-01-02] MEDS: INSULIN GLARGINE (Lantus) 5 UNIT/0.05 ML (PER 5 UNITS) 15 UNIT SC (08:56)
[2024-01-02] MEDS: carVEDILOL 12.5 MG TABLET PO ×2 (09:02→10:48)
--- NOTE | 2024-01-02 09:03 | PD.IDPROG ---
Subjective Subjective Interval history: amputation done 12/31. see note from surgery. on po abx as planned. bc neg Exam Vital Signs Temp Pulse Resp BP Pulse Ox O2 Del Method O2 Flow Rate 98.4 F 96 15 171/91 H 94 L Nasal Cannula 2 01/02/24 07:50 01/02/24 09:02 01/02/24 07:50 01/02/24 09:02 01/02/24 07:50 01/02/24 07:50 01/02/24 07:50 Narrative Exam limited eval today Objective - Internal Medicine Labs 01/02/24 04:35 01/02/24 04:35 Labs: Laboratory Results - last 24 hr 01/02/24 04:35 WBC 9.9 RBC 2.41 L Hgb 7.1 L Hct 22.5 L MCV 93 MCH 29.5 MCHC 31.6 RDW Std Deviation 47.6 H Plt Count 302 Neut % (Auto) 76 Lymph % (Auto) 11 [place] % (Auto) 10 Eos % (Auto) 1 Baso % (Auto) 0 Neut # (Auto) 7.5 Lymph # (Auto) 1.1 [place] # (Auto) 1.0 H Eos # (Auto) 0.1 Baso # (Auto) 0.0 Immature Gran # (Auto) 0.09 H Absolute Nucleated RBC 0.02 H Immature Gran % 1 H Nucleated RBC % 0 Sodium 140 Potassium 4.1 Chloride 110 H Carbon Dioxide 20.0 Anion Gap 10 BUN 61 H Creatinine 3.8 H Estim Creat Clear Calc 21.1 L eGFR 14 L* BUN/Creatinine Ratio 16 Glucose 185 H D Calculated Osmolality 301 H Calcium 8.1 L Corrected Calcium 8.2 L Phosphorus 5.8 H Magnesium 1.4 L Albumin 3.9 D Triglycerides 156 H Cholesterol 146 LDL Cholesterol, Calc 69 HDL Cholesterol 46 Cholesterol/HDL Ratio 3.2 L Hepatitis A IgM Ab Non Reactive Hep Bs Antigen Non Reactive Hep B Core IgM Ab Non Reactive Hepatitis C Antibody Non Reactive Assessment & Plan A&P 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 f/u with outpt primary, I can not see in clinic. backlog too great. 3 mo in most cases Time Spent With Patient Time: Total time spent is greater than 50% in coordination of care (as documented) at patient's floor/unit and/or counseling patient:
--- NOTE | 2024-01-02 09:48 | PD.RESPRO ---
Documentation for date of: 01/02/24 Subjective Subjective Interval history: Patient is no acute overnight events. Patient seen and examined at bedside. Labs reviewed. Patient feels pain in the left foot 10 out of 10 in intensity. She was waiting to receive her medications for pain this morning, which helps. Legs and hands feel less swollen. Hemoglobin still remains low at 7.1. Creatinine uptrended to 3.8 and GFR is worsening. Patient denies headache, fever, chills, chest pain, palpitation, dizziness, nausea, vomiting, diarrhea or constipation. Patient's blood pressure is elevated possibly secondary to pain, currently on various hypertensives. Added lisinopril 10 mg once daily. Increased Coreg dose from 12.5 twice daily with meals to 50 twice daily with meals. Modified her pain regimen. Exam Vital Signs Temp Pulse Resp BP Pulse Ox O2 Del Method O2 Flow Rate 98.4 F 96 15 171/91 H 94 L Nasal Cannula 2 01/02/24 07:50 01/02/24 09:12 01/02/24 07:50 01/02/24 09:12 01/02/24 07:50 01/02/24 07:50 01/02/24 07:50 Narrative Exam Constitutional: well-developed, well-nourished, legally blind b/l, lying in bed with mouth swabs. HEENT: NCAT, reactive round pupils b/l, saturating at 97% 2L nasal cannula Lung: CTAB, no wheezing, no rhonchi, no crackles. Heart: Regular S1S2, no murmurs, gallops, or rubs Abdomen: Soft, non-distended, non-tender, ++bowel sounds. Extremities: No cyanosis, clubbing, <1+ nonpitting edema of left leg, right leg no edema, upper extremity edema- resolving.dorsalis pedis pulses present b/l Neurologic: No focal sensory or motor deficits noted, generally alert and oriented to person, place, time. Skin: Warm, dry, no lesions or rashes noted Objective Labs 01/04/24 04:36 01/04/24 04:36 Labs: Laboratory Results - last 24 hr 01/02/24 04:35 WBC 9.9 RBC 2.41 L Hgb 7.1 L Hct 22.5 L MCV 93 MCH 29.5 MCHC 31.6 RDW Std Deviation 47.6 H Plt Count 302 Neut % (Auto) 76 Lymph % (Auto) 11 [place] % (Auto) 10 Eos % (Auto) 1 Baso % (Auto) 0 Neut # (Auto) 7.5 Lymph # (Auto) 1.1 [place] # (Auto) 1.0 H Eos # (Auto) 0.1 Baso # (Auto) 0.0 Immature Gran # (Auto) 0.09 H Absolute Nucleated RBC 0.02 H Immature Gran % 1 H Nucleated RBC % 0 Sodium 140 Potassium 4.1 Chloride 110 H Carbon Dioxide 20.0 Anion Gap 10 BUN 61 H Creatinine 3.8 H Estim Creat Clear Calc 21.1 L eGFR 14 L* BUN/Creatinine Ratio 16 Glucose 185 H D Calculated Osmolality 301 H Calcium 8.1 L Corrected Calcium 8.2 L Phosphorus 5.8 H Magnesium 1.4 L Albumin 3.9 D Triglycerides 156 H Cholesterol 146 LDL Cholesterol, Calc 69 HDL Cholesterol 46 Cholesterol/HDL Ratio 3.2 L Hepatitis A IgM Ab Non Reactive Hep Bs Antigen Non Reactive Hep B Core IgM Ab Non Reactive Hepatitis C Antibody Non Reactive Quality Measures Quality Measures none Assessment & Plan Assessment Current Active Medications: Generic Name Dose Route Start Last Admin Trade Name Freq PRN Reason Stop Dose Admin Acetaminophen 650 mg 01/01/24 08:16 Acetaminophen 325 Mg Tablet PO 01/29/24 20:51 Q6H PRN MILD PAIN (1-3) OR FEVER > 101 Hydrocodone Bitart/Acetaminophen 1 tab 12/30/23 20:52 01/02/24 03:35 Hydrocodone/Apap 5/325 Tablet PO 01/04/24 20:51 1 tab Q6HR PRN Administration PAIN SCALE 4-10(Mod-Sev Amlodipine Besylate 10 mg 12/31/23 09:00 01/02/24 08:54 Amlodipine Besylate 5 Mg Tablet PO 01/30/24 08:59 10 mg QDAY KARY Administration Ascorbic Acid 500 mg 01/01/24 21:00 01/02/24 08:55 Ascorbic Acid 250 Mg Tablet PO 01/31/24 20:59 500 mg BID KARY Administration Carvedilol 25 mg 01/02/24 17:30 Carvedilol 12.5 Mg Tablet PO 02/01/24 17:29 BIDWM KARY Cephalexin HCl 500 mg 01/02/24 09:00 01/02/24 08:53 Cephalexin 250 Mg Capsule PO 01/09/24 08:59 500 mg Q6HR KARY Administration Dextrose 25 ml 12/30/23 21:05 Dextrose 50%-Water Inj 50 Ml Syringe IV 01/29/24 21:04 Q15MIN PRN BG 50-70 responsive npo pt Dextrose 50 ml 12/30/23 21:05 Dextrose 50%-Water Inj 50 Ml Syringe IV 01/29/24 21:04 Q15MIN PRN BG <50 OR BG <70 & pt unresponsive Furosemide 40 mg 12/31/23 14:01 01/02/24 05:56 Furosemide Inj 10 Mg/Ml 4ml Vial IVP 01/30/24 13:59 40 mg Q8H KARY Administration Gabapentin 300 mg 12/30/23 22:00 01/02/24 05:00 Gabapentin 300 Mg Capsule PO 01/29/24 21:59 300 mg TID KARY Administration Glucagon 1 mg 12/30/23 21:05 Glucagon Inj 1 Mg Vial IM Q15MIN PRN BG <70, and no IV access Hydralazine HCl 25 mg 12/31/23 09:00 01/02/24 05:00 Hydralazine Hcl 25 Mg Tablet PO 01/30/24 08:59 25 mg TID KARY Administration Hydroxyzine HCl 25 mg 12/31/23 00:07 12/31/23 21:09 Hydroxyzine Hcl 25 Mg Tablet PO 01/30/24 00:06 25 mg HS PRN Administration insom Albumin Human 25 gm in 100 mls @ 100 mls/hr 12/31/23 14:00 01/02/24 05:00 Albuminar-25 Ivpb IV 01/03/24 13:59 100 mls/hr Q8HR KARY Administration Magnesium Sulfate 4 gm in 50 mls @ 12.5 mls/hr 01/02/24 08:15 01/02/24 08:56 Magnesium Sulfate Ivpb IV 01/02/24 12:14 12.5 mls/hr X1 ONE Administration Insulin Glargine 15 unit 01/02/24 09:00 01/02/24 08:56 Insulin Glargine (Lantus) 5 Unit/0.05 Ml (Per 5 Units) SC 02/01/24 08:59 15 unit DAILY KARY Administration Insulin Human Lispro 0 unit 01/01/24 17:00 01/02/24 07:47 Insulin Lispro (Admelog) 1 Unit/0.01 Ml Unit SC 01/31/24 16:59 1 unit ACHS KARY Administration Protocol Morphine Sulfate 3 mg 01/01/24 12:30 01/02/24 08:54 Morphine Sulf Inj 10 Mg/Ml Vial IVP 01/04/24 12:29 3 mg Q2H PRN Administration BREAKTHROUGH PAIN Ondansetron HCl 4 mg 12/30/23 20:52 Ondansetron Inj 2 Mg/Ml Inj 2 Ml IV 01/29/24 20:51 Q6H PRN NAUSEA OR VOMITING Protocol Pantoprazole Sodium 40 mg 01/02/24 09:00 01/02/24 08:53 Pantoprazole Inj 40 Mg Vial IV 02/01/24 08:59 40 mg QDAY KARY Administration Sennosides 1 tab 12/31/23 09:00 01/02/24 08:54 Senna Tablet PO 01/30/24 08:59 1 tab QDAY KARY Administration Protocol Sevelamer Carbonate 800 mg 12/31/23 17:30 01/02/24 08:55 Sevelamer Carbonate 800 Mg Tablet PO 01/30/24 17:29 800 mg TIDWM KARY Administration Zinc Sulfate 220 mg 01/02/24 09:00 01/02/24 08:55 Zinc Sulfate 220 Mg Capsule PO 02/01/24 08:59 220 mg QDAY KARY Administration Plan 48-year-old female with past medical history of type 2 diabetes mellitus (insulin-dependent), hypertension, kidney cancer status post partial nephrectomy, and history of right foot osteomyelitis status post debridement and amputations. Found to be septic with HR 104, WBC elevated, Cr at 3.0. Admitted for CHF and left great toe osteomyelitis work-up and management. Found to have low hemoglobin at 71. GI was consulted, pending EGD. #Acutely decompensated congestive heart failure, resolving Most likely secondary to hypertension Patient presented with shortness of breath,orthopnea,and PND, requiring oxygen. Oxygen requirement is improving. Lung sounds now clear on auscultation. Upper and lower extremity edema nearly resolved. Mild chronic heart failure, mild enlargement cardiac contour with prominent vascular congestion confirmed on chest x-ray. Hypertension and obesity led to patient's decompensated heart failure, currently improving. Cannot rule out cardiorenal in setting of partial nephrectomy leading to possible dysfunction in left kidney. Echo 06/22/2023: EF 60-65%, trace MR, AR, and mild TR. BNP mildly elevated at 165, troponin negative. NYHA class III. Echo: Normal LV size and function. Estimated EF 60-65%. Mild LVH. Diatsolic dysfunction stage 1 Normal RV size and function. Mild MR, TR. There is a small circumferential pericardial effusion. No evidence of cardiac tamponade. Plan: -Lasix decreased from 40 x3 daily to 40 mg IV daily, per nephrology -Fluid restriction (1.2 L), daily weight checks, Strict I & O -CMP in am #?GI bleed #Normocytic anemia Patient currently asymptomatic. Denies dizziness or generalized weakness. Hemoglobin 8.8 on 12/29 in ED. Hemoglobin currently 7.1. -Gastroenterology consult; recommends EGD -EGD pending -NPO -FOBT ordered; f/up -F/up CBC #Acute on chronic kidney injury #CKD stage IV #Hyperchloremia, stable #Hypomagnesemia #Nephrotic syndrome #Renal cell carinoma Electrolyte derrangements are stable. Elevated creatinine/low GFR currently worsening in setting of nephrotic syndrom Renal ultrasound showed: Right kidney 12.3 x 7.2 x 7.1 cm cortex 2.2 cm. Right kidney 11.8 x 6.2 x 5.7 cm cortex 2.3 cm. No hydronephrosis or renal calculi. Bladder prevoid volume 2 87 cc unable to void. Urine random total protein 382. Urine random creatinine 23. Urine random sodium 96. Creatinine is 3.8, GFR decreased from 18 to 14. Plan: -Continue albumin -Nephrology consulted; recommends IV Lasix 40mg IV daily -Correct electrolyte abnormalities #Osteomyelitis, left great toe #History of osteomyelitis, right foot #S/p left 1st metatarsal amputation on 01/01/2024-Post op day 2 Patient presented with pain in the left foot after hitting it against an object; open foot ulcer x2 weeks. XR and MRI of the left foot showed osteomyelitis of the proximal and distal phalanges first digit. Distal metatarsal head division and transmetatarsal amputation performed by general surgeon. Blood culture prelim negative x2. Plan: -Infectious disease was consulted; recommends oral antibiotics for a few days after amputation -General surgery consulted; amputated transmetatarsal, Day 2 -Pain: norco 7.5/325 and dilaudid .75 IV push every 3 hours -Wound care Antimicrobials: -Keflex 500 mg every 6 hours (01/01/2024 -Doxycycline 100 mg IV BID (12/29-12/31) and Ceftriaxone 2gm daily (12/31/2023-01/01/24) #B/L Pleural effusion, confirmed on xray Ultrasound-guided thoracentesis showed small bilateral perfusion, no drainage done. Serum LDH is 215. Symptomatic improvement with IV lasix. -Will consider thoracenthesis if symptoms worsen but anticipate improvement with aggressive diuresis #Hypertensive urgency, resolved #Hypertension Chronic, uncontrolled BP is elevated >150 SBP. Her elevated blood pressure is likely secondary to pain. Plan: -Increased Coreg and added Lisinopril for renal protection/proteinuria: Coreg 25mg BID WM, Lisinopril 10mg daily -Continue Amlodipine 10 mg daily and Hydralazine 25 mg TID oral -Coreg 12.5BIDWM x1 #Type 2 diabetes mellitus, insulin-dependent (A1c 9.7%-12/31/2023) #Obesity Chronic, uncontrolled Glucose is currently controlled. Patient home lantus 30 units daily. Plan: -SSI lispro -glargine 15units. #Diabetic neuropathy Hx of Diabetic neuropathy. ?Gabapentin 300 mg orally 3 times daily #Mild transaminitis Differential diagnosis: MASH (metabolic dysfunction?associated hepatosteatosis) vs hepatitis B or C. AST 74 ALT 49 -Hepatitis panel negative Plan: -f/up AST/ALT #Hypertriglyceridemia Secondary to obesity Triglycerides 156, cholesterol 146, LDL 69, HDL 47 Plan: -Consider adding fenofibrate #Elevated Alkaline phosphatase Possibly 2/2 cancer and possible mets -May consider CT scan for possible cancer mets. -F/up Alk phosp #Polysubstance use Patient has a history of methamphetamine and marijuana use. She states that she uses methamphetamines once weekly and marijuana daily. U tox positive for opiates, thiamine, marijuana. -Educated patient on the importance of discontinuing substance use. #Sepsis -resolved #Hyperkalemia, resolved #Hyperphosphatemia- resolved #Metabolic acidosis, resolved Hospital management: Disposition: Admitted for management of acutely decompensated heart failure, KIM on CKD-improving, and osteomyelitis s/p amputation left great toe on ABX. Pending EGD. Diet: n.p.o. DVT prophylaxis: heparin SC GI prophylaxis: pantoprazole 40 mg PO daily [place]: yes, strict I/O CODE STATUS: full code Discussed case with my attending Dr. Potter. Thank you, Jennifer Savage, PGY-2 Attending Provider Attestation/Addendum Face to face evaluation was performed by me. I have personally seen and examined the patient. I discussed the assessment and plan with the entire medicine team. I reviewed available medical records, imaging studies, laboratory results. I agree with the above subjective data, objective findings, assessment and plan except as corrected by me or noted below Severe volume overload Bilateral pleural effusions Acute kidney injury on underlying CKD suspect stage IV baseline Possible nephrotic syndrome Diabetes type 2 uncontrolled with hyperglycemia Left foot osteomyelitis and cellulitis Anemia, possible GI bleed -Surgery for amputation for osteomyelitis , plan to treat with oral antibiotics for cellulitis of left foot. I believe there are no surgical cultures obtained. -IV diuresis with Lasix, add albumin as well, nephrology consultation will follow recommendations. Insulins for diabetes Monitor clinical course closely Gastroenterology consulted, follow recommendations plan for EGD, likely follow with colonoscopy after.
--- NOTE | 2024-01-02 10:05 | PC.SS ---
Late note 01-02-24: SS met with patient regarding her d/c plan. Pt is alert/oriented. Pt was admitted for CHF, Osteomyelitis. Pt confirmed demographic and contact information is correct on facesheet. Pt is requesting to update her brother's phone number on her facesheet. Pt resides with her 2 brothers. Pt ambulates using a cane. Pt is ok with all ADLs. Pt is on 3 liters of O2. Pt does not use O2 at home. Pt states her brothers help care for her at home. SS spoke to her brother Steven who confirmed he care for pt at home and will continue at d/c. Pt is legally blind. SS offered pt and brother d/c options for pt to home or SNF. Pt and brother, Steven refuse SNF. Pt has an out of [facility]. SS spoke to financial vanessa Orellana who explained pt has to contact [facility] to transfer her case to [facility]. Pt named her brother, Kel Weaver medical decision maker if she is unable. Patient?s choice is to return home upon d/c. Pt does not have PCP and is agreable to follow up [facility]. D/C plan: Return home Next of Kin: Steven Weaver, brother, phone# [phone] PCP: [facility] Address: [id number] [address]
--- NOTE | 2024-01-02 10:06 | PD.SURPROG ---
Documentation for date of: 01/02/24 Subjective Subjective Narrative: Pt is seen and examined. She is resting comfortably, pain is controlled. Exam Vital Signs Temp Pulse Resp BP Pulse Ox O2 Del Method O2 Flow Rate 98.4 F 96 15 171/91 H 94 L Nasal Cannula 2 01/02/24 07:50 01/02/24 09:12 01/02/24 07:50 01/02/24 09:12 01/02/24 07:50 01/02/24 07:50 01/02/24 07:50 Constitutional Constitutional: no acute distress Routine Extremities Exam Comments: Left foot amputation site with dressings clean, dry and intact Assessment & Plan Assessment Additional comments: POD#1 s/p transmetatarsal amputation left 1st toe Plan Keep dressings intact. Will removed dressings on POD#3 Procedures Procedures Transmetatarsal amputation of left first toe
--- NOTE | 2024-01-02 10:27 | PC.SS ---
SS has faxed referral to [facility]. Pt is aware.
--- NOTE | 2024-01-02 10:30 | CHAP ---
Patient expressed gratitude for visit and prayer before her procedure.
--- NOTE | 2024-01-02 11:29 | ESPR_ITS ---
Documentation for date of: 01/02/24 Subjective Subjective Interval history: Interval history: Ms. Costa is a 48 y/o F with PMHx significant for type 2 diabetes mellitus (insulin-dependent), hypertension, kidney cancer status post partial nephrectomy, and history of right foot osteomyelitis status post debridement and amputations now presents with shortness of breath and left great toe pain. Patient states that she has been short of breath for last couple of days, endorsing orthopnea and PND with associated bilateral lower extremity edema, bilateral upper extremity edema, and swelling around the eyes and tongue. She denies chest pain, pressure, and tightness. Also reports pain in left great toe initially with purulent drainage, now with serosanguineous material on bed sheets in ED. Denies fever and chills but endorses sweats. Otherwise denies dysuria, hematuria, or foul-smelling urine. Labs at time of admission showed BUN 48 (baseline 19?22), Build Automation Engineer 3.0 (baseline 1.5), GFR 18. Chest x-ray showed heart failure pattern, bibasilar pneumonia, moderate left and large right pleural effusions. X-ray of left foot showed significant osteo of distal phalanx of first digit. Patient admitted for CHF exacerbation and left toe osteomyelitis. Nephrology was consulted due to KIM on CKD. Patient seen in ED resting in bed. Patient had bilateral lower extremity edema, worse than usual per patient. Lungs clear to auscultation, poor lung sounds due to body habitus. Labs at time of exam showed sodium 136, potassium 5.5, bicarb 16.3, BUN 51, creatinine 3.0, eGFR 18. Plan for additional diuretics, suspect cardiorenal syndrome due to fluid overload state. 12/31: Patient seen resting comfortably in bed. Patient has lower extremity edema, mildly improved. Lungs clear to auscultation, poor lung sounds due to body habitus. Sodium 138, potassium 4.3, bicarb 20.1, BUN 55, creatinine 2.4, eGFR 16. Plan for amputation of left great toe later today. 01/02/2024 patient currently seen in medical floor. Going for endoscopy for severe anemia. I gave iron, Procrit. Edema seems to be better. BUN and creatinine started to trend down. GFR 15. Had a long conversation with patient regarding dialysis and she agreed if indicated. Will plan for dialysis on Friday. Review of Systems Review of Systems Narrative Review of Systems: CONSTITUTIONAL: Patient denies any fever, chills. HEENT: Patient blind CARDIOVASCULAR: Patient denies any chest pain, shortness of breath ++ swelling in the lower extremities. PULMONARY: Patient denies any shortness of breath, cough. GASTROINTESTINAL: Patient denies any abdominal pain, constipation, nausea, vomiting, diarrhea. GENITOURINARY: Patient denies any urinary symptoms of burning or frequency or hematuria, denies any form in the urine. SKIN: Denies any rash. MUSCULOSKELETAL: does have gait imbalance NEUROLOGICAL: Denies any neurological problems of strokes, seizures or confusion. Denies any memory problems. Legally blind from diabetic retinopathy PSYCHIATRIC: Denies any depression or anxiety. LYMPHATICS : No lymphadenopathy Exam Vital Signs Temp Pulse Resp BP Pulse Ox O2 Del Method O2 Flow Rate 36.9 C 88 15 165/87 H 94 L Nasal Cannula 2 01/02/24 07:50 01/02/24 10:48 01/02/24 07:50 01/02/24 10:48 01/02/24 07:50 01/02/24 07:50 01/02/24 07:50 Narrative Exam GENERAL APPEARANCE: Patient seems to be comfortable, adequately hydrated and nourished. HEENT: Patient blind CARDIOVASCULAR: Heart regular, no murmurs LUNGS/CHEST: Chest clear to auscultation. No rales, rhonchi, wheezing ABDOMEN: Soft, nontender, nondistended. No masses. Normal bowel sounds. EXTREMITIES: 2+ edema in the lower extremities SKIN: Right 2 toes missing. Left great toe amputated MUSCULOSKELETAL: In bed NEUROLOGICAL : No neurological deficits Objective Labs 01/05/24 04:58 01/05/24 04:58 Labs: Laboratory Results - last 24 hr 01/02/24 04:35 WBC 9.9 RBC 2.41 L Hgb 7.1 L Hct 22.5 L MCV 93 MCH 29.5 MCHC 31.6 RDW Std Deviation 47.6 H Plt Count 302 Neut % (Auto) 76 Lymph % (Auto) 11 [place] % (Auto) 10 Eos % (Auto) 1 Baso % (Auto) 0 Neut # (Auto) 7.5 Lymph # (Auto) 1.1 [place] # (Auto) 1.0 H Eos # (Auto) 0.1 Baso # (Auto) 0.0 Immature Gran # (Auto) 0.09 H Absolute Nucleated RBC 0.02 H Immature Gran % 1 H Nucleated RBC % 0 Sodium 140 Potassium 4.1 Chloride 110 H Carbon Dioxide 20.0 Anion Gap 10 BUN 61 H Creatinine 3.8 H Estim Creat Clear Calc 21.1 L eGFR 14 L* BUN/Creatinine Ratio 16 Glucose 185 H D Calculated Osmolality 301 H Calcium 8.1 L Corrected Calcium 8.2 L Phosphorus 5.8 H Magnesium 1.4 L Albumin 3.9 D Triglycerides 156 H Cholesterol 146 LDL Cholesterol, Calc 69 HDL Cholesterol 46 Cholesterol/HDL Ratio 3.2 L Hepatitis A IgM Ab Non Reactive Hep Bs Antigen Non Reactive Hep B Core IgM Ab Non Reactive Hepatitis C Antibody Non Reactive Assessment & Plan Assessment and plan (1) Osteomyelitis of great toe: Status: Acute Additional Assessment & Plan Additional Plan: Tati Costa is a 48-year-old female with past medical history of type 2 diabetes mellitus (insulin-dependent), hypertension, kidney cancer status post partial nephrectomy, and history of right foot osteomyelitis status post debridement and amputations admitted for CHF and left great toe osteomyelitis work-up and management. #Acute on chronic kidney injury #CKD stage IV #Nephrotic syndrome secondary to diabetic nephropathy Patient presented with poor kidney function, BUN, creatinine elevated above baseline. Patient has history of CHF, appears to be in CHF exacerbation clinically based on reported symptoms of orthopnea, exam findings of bilateral lower extremity edema increased compared to baseline per patient. Concern for nephrotic syndrome given findings: Random urine creatinine 23, random urine total protein to 82, random urine sodium 96. Renal ultrasound showed no hydronephrosis or renal stones. BLE mildly improved with diuresis. Plan: -Renally dose medications -Avoid nephrotoxic meds -Follow daily labs -Diuretics: Lasix 40 mg IV daily due to worsening renal function. # ?New onset CHF//diabetic nephrotic syndrome #Anasarca #Osteomyelitis, left great toe #History of osteomyelitis, right foot #Type 2 diabetes mellitus, insulin-dependent #Hypertension #Hypertensive urgency Plan as per primary team Quality - progress note Quality Measures Quality Measures: VTE prophylaxis Reason for Continued Stay Reason for Continued Stay: further monitoring
[2024-01-02] MEDS: HYDROmorphone INJ 2 MG/ML VIAL 0.75 MG IVP ×2 (12:44→21:23)
--- NOTE | 2024-01-02 13:41 | PC.SS ---
Follow up note: EGD pending. Dr. Ivy is consulting. Pt will return home upon dc. Referral for [facility] has been submitted.
--- NOTE | 2024-01-02 14:10 | PC.NURSE ---
spoke with Dr. Garber about pt. BP of 147/85 before giing the lisinopril and Hydralazine per go ahead and give it.
[2024-01-02] MEDS: Lisinopril 2.5 MG TABLET 10 MG PO (14:13)
--- NOTE | 2024-01-02 19:30 | PC.NURSE ---
pt off unit for EGD via [place] and O2 2L at 1930.
--- NOTE | 2024-01-02 20:10 | SUR.PHASEI ---
received pt and report from SEAN Thomas. Pt arousable to voice, pt answers questions appropriately. vss, no distress noted. IV in place, no s/s of infiltration or redness noted. F/C draining well. dressing to L great toe dry and intact. will con't to monitor patient
--- NOTE | 2024-01-02 20:35 | SUR.PHASEI ---
pt a&ox4, pt denies any nausea or pain, vss, no distress noted. IV still intact. f/c cont to drain well, no drainage noted to Lgreat toe dressing. Report given to SEAN Tafoya. Pt rreatoney for d/c
[2024-01-02] MEDS: METOCLOPRAMIDE INJ 5 MG/ML VIAL 2 ML IVP (21:26)
[2024-01-02] MEDS: NA SU/NAHCO3/KC/PEG (Golytely) 4,000 ML BTL 4000 ML PO (21:26)
[2024-01-03] VITALS (22 sets, daily range): BP systolic 127–159; BP diastolic 61–93; PULSE 69–83; RESP 15–89; TEMP 36.2–37.7; O2SAT 90–98
[2024-01-03] MEDS: METOCLOPRAMIDE INJ 5 MG/ML VIAL 2 ML IVP ×5 (00:36→23:22)
[2024-01-03] MEDS: HYDROmorphone INJ 2 MG/ML VIAL 0.75 MG IVP ×4 (00:36→21:22)
[2024-01-03] MEDS: ALBUMIN HUMAN 25% IVPB 25 GM/100 ML BTL IV (05:21)
[2024-01-03] MEDS: hydrALAZINE HCL 25 MG TABLET PO ×3 (05:22→21:23)
[2024-01-03] MEDS: GABAPENTIN 300 MG CAPSULE PO ×2 (05:22→21:22)
[2024-01-03 05:31] LABS: Basophils % (Auto) 1 % (0-2.5); Eosinophils # (Auto) 0.1 Thou/mm3 (0.0-0.5); Eosinophils % (Auto) 2 % (0-10); Hematocrit 21.9 % (36.0-46.0); Immature Granulocytes % (Auto) 1 % (0-0); Immature Granulocytes Auto 0.11 Thou/mm3 (0.00-0.00); Lymphocytes # (Auto) 1.5 Thou/mm3 (1.0-4.8); Lymphocytes % (Auto) 18 % (10-50); Mean Corpuscular HGB Conc 31.5 g/dl (31.0-37.0); Mean Corpuscular Hemoglobin 29.1 pg (25.0-35.0); Mean Corpuscular Volume 92 fL (80-100); Monocytes # (Auto) 1.2 Thou/mm3 (0.0-0.8); Monocytes % (Auto) 14 % (0-12); Neutrophils # (Auto) 5.5 Thou/mm3 (1.8-7.7); Neutrophils % (Auto) 65 % (37-80); Nucleated Red Blood Cell % 0 /100 WBC (0); Platelet Count 302 Thou/mm3 (140-440); RDW Standard Deviation 46.7 fL (36.4-46.3); Red Blood Count 2.37 Miln/mm3 (4.00-5.20); White Blood Count 8.5 Thou/mm3 (3.6-11.0)
[2024-01-03 05:38] LABS: Hemoglobin 6.9 g/dL (12.0-16.0)
[2024-01-03 06:12] LABS: Alanine Aminotransferase 43 U/L (10-49); Albumin, Serum 4.3 gm/dL (3.5-5.0); Albumin/Globulin Ratio 1.5 (1.2-2.2); Alkaline Phosphatase 434 U/L (46-116); Anion Gap 10 (7-16); Aspartate Amino Transferase 31 U/L (0-34); BUN/Creatinine Ratio 16 Ratio (12-20); Bilirubin,Total 0.4 mg/dL (0.3-1.2); Blood Urea Nitrogen 60 mg/dL (9-23); Calcium 8.7 mg/dL (8.3-10.6); Calcium (Corrected) 8.7 mg/dL (8.5-10.1); Carbon Dioxide 22.3 mMol/L (20.0-31.0); Chloride 105 mMol/L (98-107); Creatinine (Component) 3.8 mg/dL (0.6-1.3); Estimated Creatinine Clearance 21.1 mL/min (>60); Globulin 2.8 gm/dL (2.3-3.5); Glucose 101 mg/dL (74-106); Osmolality,Calculated 290 (275-295); Phosphorous 6.5 mg/dL (2.4-5.1); Potassium 3.9 mMol/L (3.4-5.1); Sodium 137 mMol/L (136-145); Total Protein 7.1 gm/dL (5.7-8.2); eGFR 14 See Note
--- NOTE | 2024-01-03 06:47 | PC.NURSE ---
notified Dr. Franklin of pt's H & H of 6.9/21.9 at 0630. New orders received. Also notified pt on golytly and has a quarter of the bottle left but has not had a bowel movement so far.
[2024-01-03 07:40] LABS: Hematocrit 20.1 % (36.0-46.0); Hemoglobin 6.4 g/dL (12.0-16.0)
[2024-01-03] MEDS: Lisinopril 2.5 MG TABLET 10 MG PO (08:02)
[2024-01-03] MEDS: carVEDILOL 12.5 MG TABLET 25 MG PO ×2 (08:02→21:23)
--- NOTE | 2024-01-03 10:35 | PD.NEPHPROG ---
Documentation for date of: 01/03/24 Subjective Subjective Interval history: Interval history: Ms. Costa is a 48 y/o F with PMHx significant for type 2 diabetes mellitus (insulin-dependent), hypertension, kidney cancer status post partial nephrectomy, and history of right foot osteomyelitis status post debridement and amputations now presents with shortness of breath and left great toe pain. Patient states that she has been short of breath for last couple of days, endorsing orthopnea and PND with associated bilateral lower extremity edema, bilateral upper extremity edema, and swelling around the eyes and tongue. She denies chest pain, pressure, and tightness. Also reports pain in left great toe initially with purulent drainage, now with serosanguineous material on bed sheets in ED. Denies fever and chills but endorses sweats. Otherwise denies dysuria, hematuria, or foul-smelling urine. Labs at time of admission showed BUN 48 (baseline 19?22), Mobility Developer 3.0 (baseline 1.5), GFR 18. Chest x-ray showed heart failure pattern, bibasilar pneumonia, moderate left and large right pleural effusions. X-ray of left foot showed significant osteo of distal phalanx of first digit. Patient admitted for CHF exacerbation and left toe osteomyelitis. Nephrology was consulted due to KIM on CKD. Patient seen in ED resting in bed. Patient had bilateral lower extremity edema, worse than usual per patient. Lungs clear to auscultation, poor lung sounds due to body habitus. Labs at time of exam showed sodium 136, potassium 5.5, bicarb 16.3, BUN 51, creatinine 3.0, eGFR 18. Plan for additional diuretics, suspect cardiorenal syndrome due to fluid overload state. 12/31: Patient seen resting comfortably in bed. Patient has lower extremity edema, mildly improved. Lungs clear to auscultation, poor lung sounds due to body habitus. Sodium 138, potassium 4.3, bicarb 20.1, BUN 55, creatinine 2.4, eGFR 16. Plan for amputation of left great toe later today. 01/03/2024 patient currently seen in medical floor. She is blind from diabetic retinopathy. She has severe progressive diabetic nephropathy with nephrotic range proteinuria and nephrotic syndrome with significant anasarca. On diuretics. GFR declining. Had a long conversation with patient regarding renal replacement therapy as her GFR is less than 15 and she agreed for dialysis if indicated. Currently on diuretics. Cannot give any fluids due to anasarca. Will proceed with dialysis on Friday. Review of Systems Review of Systems Narrative Review of Systems: CONSTITUTIONAL: Patient denies any fever, chills. HEENT: Patient blind CARDIOVASCULAR: Patient denies any chest pain, shortness of breath ++ swelling in the lower extremities. PULMONARY: Patient denies any shortness of breath, cough. GASTROINTESTINAL: Patient denies any abdominal pain, constipation, nausea, vomiting, diarrhea. GENITOURINARY: Patient denies any urinary symptoms of burning or frequency or hematuria, denies any form in the urine. SKIN: Denies any rash. MUSCULOSKELETAL: does have gait imbalance NEUROLOGICAL: Denies any neurological problems of strokes, seizures or confusion. Denies any memory problems. Legally blind from diabetic retinopathy PSYCHIATRIC: Denies any depression or anxiety. LYMPHATICS : No lymphadenopathy Exam Vital Signs Temp Pulse Resp BP Pulse Ox O2 Del Method O2 Flow Rate 36.8 C 78 17 145/73 H 96 Oxy Mask 6 01/04/24 12:00 01/04/24 12:00 01/04/24 12:00 01/04/24 12:00 01/04/24 12:00 01/04/24 12:00 01/04/24 12:00 Narrative Exam Constitutional: well-developed, well-nourished, legally blind female. HEENT: NCAT, reactive round pupils b/l, saturating at 96% 6L Oxy Mask. Lung: CTAB, no wheezing, no rhonchi, no crackles. Heart: Regular S1S2, no murmurs, gallops, or rubs. Abdomen: Soft, non-tender, Normoactive bowel sounds. Extremities: No cyanosis, clubbing, No bilateral lower or upper extremity edema. Neurologic: No focal sensory or motor deficits noted, generally alert and oriented to person, place, time. Skin: Warm, dry, no lesions or rashes noted Objective Labs 01/05/24 04:58 01/05/24 04:58 Labs: Laboratory Results - last 24 hr 01/03/24 01/03/24 01/04/24 07:10 16:52 04:36 WBC 9.7 RBC 2.70 L Hgb 7.4 L 7.9 L Hct 23.2 L 24.9 L MCV 92 MCH 29.3 MCHC 31.7 RDW Std Deviation 47.1 H Plt Count 240 D Neut % (Auto) 75 Lymph % (Auto) 12 [place] % (Auto) 11 Eos % (Auto) 1 Baso % (Auto) 0 Neut # (Auto) 7.2 Lymph # (Auto) 1.1 [place] # (Auto) 1.1 H Eos # (Auto) 0.1 Baso # (Auto) 0.0 Immature Gran # (Auto) 0.14 H Absolute Nucleated RBC 0.00 Immature Gran % 1 H Nucleated RBC % 0 Sodium 137 Potassium 4.2 Chloride 103 Carbon Dioxide 23.2 Anion Gap 11 BUN 65 H Creatinine 3.9 H Estim Creat Clear Calc 21.1 L eGFR 13 L* BUN/Creatinine Ratio 17 Glucose 120 H Calculated Osmolality 293 Calcium 8.8 Corrected Calcium 8.8 Phosphorus 7.2 H Magnesium 2.0 Total Bilirubin 0.6 AST 276 H ALT 148 H Alkaline Phosphatase 889 H D Total Protein 7.0 Albumin 4.2 Globulin 2.8 Albumin/Globulin Ratio 1.5 Crossmatch See Detail Assessment & Plan Assessment and plan (1) Osteomyelitis of great toe: Status: Acute Additional Assessment & Plan Additional Plan: Tati Costa is a 48-year-old female with past medical history of type 2 diabetes mellitus (insulin-dependent), hypertension, kidney cancer status post partial nephrectomy, and history of right foot osteomyelitis status post debridement and amputations admitted for CHF and left great toe osteomyelitis work-up and management. #Acute on chronic kidney injury #CKD stage IV #Nephrotic syndrome Patient presented with poor kidney function, BUN, creatinine elevated above baseline. Patient has history of CHF, appears to be in CHF exacerbation clinically based on reported symptoms of orthopnea, exam findings of bilateral lower extremity edema increased compared to baseline per patient. Renal ultrasound showed no hydronephrosis or renal stones. BLE mildly improved with diuresis. Urine protein/creatinine 16.6 g Had a long conversation with patient regarding progressive diabetic nephropathy, proteinuria, anasarca and significant fluid overload. On diuretics. Worsening renal function. GFR less than 15. Patient agreed for dialysis. Will plan on Friday. IR closed Friday. Plan: -Renally dose medications -Avoid nephrotoxic meds -Follow daily labs -Diuretics: Continue with Lasix daily # ?New onset CHF #Anasarca #Osteomyelitis, left great toe #History of osteomyelitis, right foot #Type 2 diabetes mellitus, insulin-dependent #Hypertension #Hypertensive urgency Plan as per primary team Thank you for allowing me to participate in the care of this patient. Plan of care discussed with primary team.
--- NOTE | 2024-01-03 10:36 | PD.RESPRO ---
Documentation for date of: 01/03/24 Subjective Subjective Interval history: Patient is no acute overnight events. Patient seen and examined at bedside. Labs reviewed. Patient does not complain of left foot pain. Bilateral extremity edema resolved. Plan auscultation all lung lobes. Hemoglobin dropped from 7.1 to 6.9. repeat H & H is 6.4, requiring transfusion. Patient denies headache, fever, chills, chest pain, palpitation, dizziness, nausea, vomiting, diarrhea or constipation. Continue lisinopril 10 mg once daily. Continue Coreg 25 twice daily with meals. Pain management as needed. Patient was found drowsy today, hence decreased dosage of gabapentin as patient appeared drowsy this morning. Exam Vital Signs Temp Pulse Resp BP Pulse Ox O2 Del Method O2 Flow Rate 98.4 F 83 18 159/83 H 92 L Nasal Cannula 3 01/03/24 08:00 01/03/24 08:07 01/03/24 08:00 01/03/24 08:07 01/03/24 08:00 01/03/24 08:00 01/03/24 08:00 Narrative Exam Constitutional: well-developed, well-nourished, legally blind female. HEENT: NCAT, reactive round pupils b/l, saturating at 97% 2L nasal cannula Lung: CTAB, no wheezing, no rhonchi, no crackles. Heart: Regular S1S2, no murmurs, gallops, or rubs Abdomen: Soft, non-tender, Normoactive bowel sounds. Extremities: No cyanosis, clubbing, No bilateral lower or upper extremity edema. Neurologic: No focal sensory or motor deficits noted, generally alert and oriented to person, place, time. Skin: Warm, dry, no lesions or rashes noted Objective Labs 01/04/24 04:36 01/04/24 04:36 Labs: Laboratory Results - last 24 hr 01/03/24 01/03/24 04:48 07:10 WBC 8.5 RBC 2.37 L Hgb 6.9 L* 6.4 L* Hct 21.9 L* 20.1 L* MCV 92 MCH 29.1 MCHC 31.5 RDW Std Deviation 46.7 H Plt Count 302 Neut % (Auto) 65 Lymph % (Auto) 18 Stokes % (Auto) 14 H Eos % (Auto) 2 Baso % (Auto) 1 Neut # (Auto) 5.5 Lymph # (Auto) 1.5 Stokes # (Auto) 1.2 H Eos # (Auto) 0.1 Baso # (Auto) 0.0 Immature Gran # (Auto) 0.11 H Absolute Nucleated RBC 0.00 Immature Gran % 1 H Nucleated RBC % 0 Sodium 137 Potassium 3.9 Chloride 105 Carbon Dioxide 22.3 Anion Gap 10 BUN 60 H Creatinine 3.8 H Estim Creat Clear Calc 21.1 L eGFR 14 L* BUN/Creatinine Ratio 16 Glucose 101 D Calculated Osmolality 290 Calcium 8.7 Corrected Calcium 8.7 Phosphorus 6.5 H Magnesium 2.0 Total Bilirubin 0.4 AST 31 ALT 43 Alkaline Phosphatase 434 H D Total Protein 7.1 Albumin 4.3 Globulin 2.8 Albumin/Globulin Ratio 1.5 Blood Type O Positive Antibody Screen NEGATIVE Blood Bank Wristband ID Yes Quality Measures Quality Measures none Assessment & Plan Assessment Current Active Medications: Generic Name Dose Route Start Last Admin Trade Name Freq PRN Reason Stop Dose Admin Acetaminophen 650 mg 01/01/24 08:16 Acetaminophen 325 Mg Tablet PO 01/29/24 20:51 Q6H PRN MILD PAIN (1-3) OR FEVER > 101 Hydrocodone Bitart/Acetaminophen 1 tab 01/02/24 10:30 Hydrocodone/Apap 7.5/325 Tablet PO 01/07/24 10:29 Q6HR PRN PAIN SCALE 4-6 (Moderate Amlodipine Besylate 10 mg 12/31/23 09:00 01/02/24 08:54 Amlodipine Besylate 5 Mg Tablet PO 01/30/24 08:59 10 mg QDAY KARY Administration Ascorbic Acid 500 mg 01/01/24 21:00 01/02/24 21:25 Ascorbic Acid 250 Mg Tablet PO 01/31/24 20:59 500 mg BID KARY Administration Carvedilol 25 mg 01/02/24 17:30 01/03/24 08:07 Carvedilol 12.5 Mg Tablet PO 02/01/24 17:29 25 mg BIDWM KARY Administration Cephalexin HCl 500 mg 01/02/24 10:30 01/02/24 21:25 Cephalexin 250 Mg Capsule PO 01/09/24 10:29 500 mg Q12HR KARY Administration Dextrose 25 ml 12/30/23 21:05 Dextrose 50%-Water Inj 50 Ml Syringe IV 01/29/24 21:04 Q15MIN PRN BG 50-70 responsive npo pt Dextrose 50 ml 12/30/23 21:05 Dextrose 50%-Water Inj 50 Ml Syringe IV 01/29/24 21:04 Q15MIN PRN BG <50 OR BG <70 & pt unresponsive Furosemide 40 mg 01/03/24 09:00 Furosemide Inj 10 Mg/Ml 4ml Vial IVP 02/02/24 08:59 QDAY KARY Gabapentin 300 mg 12/30/23 22:00 01/03/24 05:22 Gabapentin 300 Mg Capsule PO 01/29/24 21:59 300 mg TID KARY Administration Glucagon 1 mg 12/30/23 21:05 Glucagon Inj 1 Mg Vial IM Q15MIN PRN BG <70, and no IV access Hydralazine HCl 25 mg 12/31/23 09:00 01/03/24 05:22 Hydralazine Hcl 25 Mg Tablet PO 01/30/24 08:59 25 mg TID KARY Administration Hydromorphone HCl 0.75 mg 01/02/24 10:29 01/03/24 05:51 Hydromorphone Inj 2 Mg/Ml Vial IVP 01/07/24 10:25 0.75 mg Q3HR PRN Administration Breakthrough Pain Hydroxyzine HCl 25 mg 01/02/24 11:12 Hydroxyzine Hcl 25 Mg Tablet PO 01/30/24 00:06 HS PRN insomnia Albumin Human 25 gm in 100 mls @ 100 mls/hr 12/31/23 14:00 01/03/24 05:21 Albuminar-25 Ivpb IV 01/03/24 13:59 100 mls/hr Q8HR KARY Administration Insulin Glargine 15 unit 01/02/24 09:00 01/02/24 08:56 Insulin Glargine (Lantus) 5 Unit/0.05 Ml (Per 5 Units) SC 02/01/24 08:59 15 unit DAILY KARY Administration Insulin Human Lispro 0 unit 01/02/24 17:00 01/03/24 07:58 Insulin Lispro (Admelog) 1 Unit/0.01 Ml Unit SC 02/01/24 16:59 Not Given AC [facility] Protocol Lisinopril 10 mg 01/02/24 13:15 01/03/24 08:02 Lisinopril 2.5 Mg Tablet PO 02/01/24 13:14 10 mg QDAY KARY Administration Metoclopramide HCl 5 mg 01/02/24 20:15 01/03/24 05:21 Metoclopramide Inj 5 Mg/Ml Vial 2 Ml IVP 02/01/24 20:14 5 mg Q6HR KARY Administration Protocol Morphine Sulfate 3 mg 01/02/24 10:33 01/02/24 17:39 Morphine Sulf Inj 10 Mg/Ml Vial IVP 01/04/24 12:29 3 mg Q2H PRN Administration PAIN SCALE 7-10 (Severe Ondansetron HCl 4 mg 12/30/23 20:52 Ondansetron Inj 2 Mg/Ml Inj 2 Ml IV 01/29/24 20:51 Q6H PRN NAUSEA OR VOMITING Protocol Pantoprazole Sodium 40 mg 01/02/24 09:00 01/02/24 08:53 Pantoprazole Inj 40 Mg Vial IV 02/01/24 08:59 40 mg QDAY KARY Administration Sennosides 1 tab 12/31/23 09:00 01/02/24 08:54 Senna Tablet PO 01/30/24 08:59 1 tab QDAY KARY Administration Protocol Sevelamer Carbonate 800 mg 12/31/23 17:30 01/02/24 17:25 Sevelamer Carbonate 800 Mg Tablet PO 01/30/24 17:29 Not Given TIDWM KARY Zinc Sulfate 220 mg 01/02/24 09:00 01/02/24 08:55 Zinc Sulfate 220 Mg Capsule PO 02/01/24 08:59 220 mg QDAY KARY Administration Plan 48-year-old female with past medical history of type 2 diabetes mellitus (insulin-dependent), hypertension, kidney cancer status post partial nephrectomy, and history of right foot osteomyelitis status post debridement and amputations. Found to be septic with HR 104, WBC elevated, Cr at 3.0. Admitted for CHF and left great toe osteomyelitis work-up and management. Found to have low hemoglobin at 71. GI was consulted, pending EGD. #?GI bleed #Normocytic anemia Ddx: Hemorrhoids, inflammatory bowel disease, or colon cancer Patient suffers from constipation. She has never had a colonoscopy. Denies bloody stool. Denies dizziness or generalized weakness. Hemoglobin decreased to 6.4 from initial 8.8. EGD showed gastritis, esophagitis, nonerosive lesions at the GE junction. No source of bleeding identified. 1 unit packed red blood cells transfused for low hemoglobin. Shortly after, patient experienced fevers and a rate of transfusion was decreased. Plan: -Gastroenterology consulted; recommends clear liquid diet, GoLytely followed by colonoscopy -Clear liquid diet -FOBT; f/up -F/up CBC #Acutely decompensated congestive heart failure, resolving Most likely secondary to hypertension Patient presented with shortness of breath,orthopnea,and PND, requiring oxygen. Oxygen requirement is improving. Lung sounds now clear on auscultation. Upper and lower extremity edema resolved. Mild chronic heart failure, prominent vascular congestion confirmed on chest x-ray. Hypertension and obesity led to patient's decompensated heart failure, improving with tighter controlled BP. Cannot rule out cardiorenal in setting of partial nephrectomy leading to possible dysfunction in left kidney. Echo 06/22/2023: EF 60-65%, trace MR, AR, and mild TR. BNP mildly elevated at 165, troponin negative. NYHA class III. Echo: Normal LV size and function. Estimated EF 60-65%. Mild LVH. Diatsolic dysfunction stage 1 Normal RV size and function. Mild MR, TR. There is a small circumferential pericardial effusion. No evidence of cardiac tamponade. Plan: -Continue Lasix 40 mg IV daily, per nephrology -Fluid restriction (1.2 L), daily weight checks, Strict I & O -CMP in am #CKD stage V #Acute on chronic CKD #Nephrotic syndrome #Renal cell carinoma Elevated creatinine/low GFR currently worsening in setting of nephrotic syndrome, requiring dialysis. Renal ultrasound showed: Right kidney 12.3 x 7.2 x 7.1 cm cortex 2.2 cm. Right kidney 11.8 x 6.2 x 5.7 cm cortex 2.3 cm. No hydronephrosis or renal calculi. Bladder prevoid volume 2 87 cc unable to void. Urine random total protein 382. Urine random creatinine 23. Urine random sodium 96. Creatinine is 3.8, GFR remains at 14. Considering patient's worsening kidney function, discussion was held with loan associate who recommends dialysis. Plan: -Nephrology consulted; recommends dialysis catheter followed by dialysis on 01/05/2024 when IR is available for replacement. -Continue albumin -Follow-up renal panel -Await nephrotoxic agents #Osteomyelitis, left great toe #History of osteomyelitis, right foot #S/p left 1st metatarsal amputation on 01/01/2024-Post op day 3 Patient presented with pain in the left foot after hitting it against an object; open foot ulcer x2 weeks. XR and MRI of the left foot showed osteomyelitis of the proximal and distal phalanges first digit. Distal metatarsal head division and transmetatarsal amputation performed by general surgeon. Blood culture prelim negative x2. Plan: -Infectious disease was consulted; recommends oral antibiotics for a few days (4-5d) after amputation -General surgery consulted; amputated transmetatarsal, Day 3 -Pain: norco 7.5/325 and dilaudid .75 IV push every 3 hours -Wound care Antimicrobials: -Keflex 500 mg every 6 hours (01/01/2024 for total 4-5 days -Doxycycline 100 mg IV BID (12/29-12/31) and Ceftriaxone 2gm daily (12/31/2023-01/01/24) #B/L Pleural effusion, confirmed on xray-improving Ultrasound-guided thoracentesis showed small bilateral perfusion, no drainage done. Serum LDH is 215. Symptomatic improvement with IV lasix. -Will consider thoracenthesis if symptoms worsen #Hypertensive urgency, resolved #Hypertension Chronic, uncontrolled BP is elevated >150 SBP. Her elevated blood pressure is likely secondary to pain. Plan: -Continue Lisinopril 10mg daily and Coreg 25mg BID WM -Continue Amlodipine 10 mg daily and Hydralazine 25 mg TID oral #Type 2 diabetes mellitus, insulin-dependent (A1c 9.7%-12/31/2023) #Obesity Chronic, uncontrolled Glucose is currently controlled. Patient home lantus 30 units daily. Plan: -SSI lispro -glargine 15units. #Diabetic neuropathy Hx of Diabetic neuropathy. Patient was found drowsy today, hence decreased dosage of gabapentin. ?Gabapentin 300 mg orally daily. #Hypertriglyceridemia Secondary to obesity Triglycerides 156, cholesterol 146, LDL 69, HDL 47 Plan: -Consider adding fenofibrate #Elevated Alkaline phosphatase Possibly 2/2 cancer and possible mets -May consider CT scan for possible cancer mets. #Polysubstance use Patient has a history of methamphetamine and marijuana use. She states that she uses methamphetamines once weekly and marijuana daily. U tox positive for opiates, thiamine, marijuana. -Educated patient -F/up outpatient #Sepsis -resolved #Hyperkalemia, resolved #Hyperphosphatemia- resolved #Metabolic acidosis, resolved #Mild transaminitis-resolved #Hyperchloremia, resolved Hospital management: Disposition: Admitted for management of acutely decompensated heart failure, KIM on CKD-improving, and osteomyelitis s/p amputation left great toe on ABX. Pending colonoscopy. Diet: Clear liquid DVT prophylaxis: heparin SC GI prophylaxis: pantoprazole 40 mg PO daily [place]ral: yes, strict I/O CODE STATUS: full code Discussed case with my attending Dr. Potter. Thank you, Jennifer Savage, PGY-2 Attending Provider Attestation/Addendum Face to face evaluation was performed by me. I have personally seen and examined the patient. I discussed the assessment and plan with the entire medicine team. I reviewed available medical records, imaging studies, laboratory results. I agree with the above subjective data, objective findings, assessment and plan except as corrected by me or noted below Severe volume overload Bilateral pleural effusions Acute kidney injury on underlying CKD suspect stage IV baseline Possible nephrotic syndrome Diabetes type 2 uncontrolled with hyperglycemia Left foot osteomyelitis and cellulitis Anemia, possible GI bleed -Patient seems to be about the same, diuresis decrease to 40 mg IV furosemide daily for now. Most likely she is heading towards dialysis discussed with Dr Moreland loan associate. IR to place dialysis tunneled catheter once they are available, no emergent dialysis needed at this point. -Surgery for amputation for osteomyelitis , plan to treat with oral antibiotics for cellulitis of left foot. I believe there are no surgical cultures obtained. -IV diuresis with Lasix, add albumin as well, nephrology consultation will follow recommendations. Insulins for diabetes Monitor clinical course closely Gastroenterology consulted, status post EGD, plan to follow with colonoscopy , bowel preparation
[2024-01-03] MEDS: MORPHINE SULF INJ 10 MG/ML VIAL 3 MG IVP (11:13)
[2024-01-03] MEDS: amLODIPine BESYLATE 5 MG TABLET 10 MG PO (11:18)
[2024-01-03] MEDS: SENNA TABLET 1 TAB PO (11:19)
[2024-01-03] MEDS: SEVELAMER CARBONATE 800 MG TABLET PO ×2 (11:19→17:48)
[2024-01-03] MEDS: cephALEXin 250 MG CAPSULE 500 MG PO ×2 (11:20→21:22)
[2024-01-03] MEDS: ASCORBIC ACID 250 MG TABLET 500 MG PO ×2 (11:20→21:22)
[2024-01-03] MEDS: ZINC SULFATE 220 MG CAPSULE PO (11:20)
[2024-01-03] MEDS: PANTOPRAZOLE INJ 40 MG VIAL IV (11:21)
[2024-01-03] MEDS: FUROSEMIDE INJ 10 MG/ML 4ML VIAL 40 MG IVP (11:21)
[2024-01-03] MEDS: ferumoxytoL (ESRD) 510 MG in SODIUM CHLORIDE 0.9% 100 ML 234 MG IV (11:33)
[2024-01-03] MEDS: INSULIN GLARGINE (Lantus) 5 UNIT/0.05 ML (PER 5 UNITS) 8 UNIT SC (11:38)
[2024-01-03 12:03] LABS: Stool for WBCs Negative (Negative)
[2024-01-03] MEDS: ACETAMINOPHEN 325 MG TABLET 650 MG PO (13:28)
[2024-01-03] MEDS: EPOETIN ALFA-EPBX INJ 10,000 UNIT/ML VIAL (ESRD) 10000 UNIT SC (13:53)
--- NOTE | 2024-01-03 14:28 | PC.NURSE ---
1325 BLOOD TRANSFUSION READY TO BE STARTED. PATIENT TEMP IS 99.9. PATIENT HAS SEVERAL COVERS ON REMOVED AND DR WASSERMAN CALLED AND INFORMED OF TEMP PRIOR TO BLOOD TRANSFUSION. STATED TO GIVE TYLENOL AND TO START BLOOD TRANSFUSION SLOWLY. [id number] COSBY CALLED TO ASK RESULTS OF COLON PREP. INFORMED PATIENT DRANK ABOUT 3/4 OF PREP BUT WITH NO RESULTS UNTIL THIS MORNING HAD LARGE SOFT STOOL. INFORMED HOSPITALIST INFORMED AND THEY HAVE ORDERED GOLYTELY AGAIN. INFORMED DR COSBY THAT PATIENT IS VERY WEAK AND GROGGY AND UNABLE TO TAKE PREP ON HER OWN. STATED IF NECESSARY TO INSERT 14FR NGT AND GIVE 300CC OG GOLYTELY VIA NGT EVERY HOUR. PATIENT INFORMED OF DR COSBYS REQUEST. WILL TRY TO GIVE PATIENT GOLYTELY BY MOUTH EVERY 30MINS AND IF UNABLE TO KEEP UP WILL THEN TRY TO INSERT NGT.
[2024-01-03 17:25] LABS: Hematocrit 23.2 % (36.0-46.0)
[2024-01-03 17:42] LABS: Hemoglobin 7.4 g/dL (12.0-16.0)
[2024-01-03] MEDS: INSULIN LISPRO (AdmeLOG) 1 UNIT/0.01 ML UNIT SC (17:46)
--- NOTE | 2024-01-03 18:25 | ESPR_ITS ---
Documentation for date of: 01/03/24 Subjective Subjective Interval history: Patient scheduled for a colonoscopy but she is not clear Additional GoLytely Patient may need a Greenlandic 12 NGT to give the GoLytely at 300 cc an hour Exam Vital Signs Temp Pulse Resp BP Pulse Ox O2 Del Method O2 Flow Rate 97.5 F 71 15 144/84 H 97 Room Air 6 01/03/24 16:26 01/03/24 16:26 01/03/24 16:26 01/03/24 16:26 01/03/24 16:26 01/03/24 16:00 01/03/24 16:26 Objective Labs 01/03/24 16:52 01/03/24 04:48 Labs: Laboratory Results - last 24 hr 01/01/24 01/03/24 01/03/24 10:30 04:48 07:10 WBC 8.5 RBC 2.37 L Hgb 6.9 L* 6.4 L* Hct 21.9 L* 20.1 L* MCV 92 MCH 29.1 MCHC 31.5 RDW Std Deviation 46.7 H Plt Count 302 Neut % (Auto) 65 Lymph % (Auto) 18 Moody % (Auto) 14 H Eos % (Auto) 2 Baso % (Auto) 1 Neut # (Auto) 5.5 Lymph # (Auto) 1.5 Moody # (Auto) 1.2 H Eos # (Auto) 0.1 Baso # (Auto) 0.0 Immature Gran # (Auto) 0.11 H Absolute Nucleated RBC 0.00 Immature Gran % 1 H Nucleated RBC % 0 Sodium 137 Potassium 3.9 Chloride 105 Carbon Dioxide 22.3 Anion Gap 10 BUN 60 H Creatinine 3.8 H Estim Creat Clear Calc 21.1 L eGFR 14 L* BUN/Creatinine Ratio 16 Glucose 101 D Calculated Osmolality 290 Calcium 8.7 Corrected Calcium 8.7 Phosphorus 6.5 H Magnesium 2.0 Total Bilirubin 0.4 AST 31 ALT 43 Alkaline Phosphatase 434 H D Total Protein 7.1 Albumin 4.3 Globulin 2.8 Albumin/Globulin Ratio 1.5 Stool for White Cells Negative Blood Type O Positive Antibody Screen NEGATIVE Crossmatch See Detail Blood Bank Wristband ID Yes 01/03/24 16:52 WBC RBC Hgb 7.4 L Hct 23.2 L MCV MCH MCHC RDW Std Deviation Plt Count Neut % (Auto) Lymph % (Auto) Moody % (Auto) Eos % (Auto) Baso % (Auto) Neut # (Auto) Lymph # (Auto) Moody # (Auto) Eos # (Auto) Baso # (Auto) Immature Gran # (Auto) Absolute Nucleated RBC Immature Gran % Nucleated RBC % Sodium Potassium Chloride Carbon Dioxide Anion Gap BUN Creatinine Estim Creat Clear Calc eGFR BUN/Creatinine Ratio Glucose Calculated Osmolality Calcium Corrected Calcium Phosphorus Magnesium Total Bilirubin AST ALT Alkaline Phosphatase Total Protein Albumin Globulin Albumin/Globulin Ratio Stool for White Cells Blood Type Antibody Screen Crossmatch Blood Bank Wristband ID Impressions Impression: # Anemia blood loss NGT 12 Green[place]ic GoLytely via the NGT at 300 cc/h if the patient does not drink p.o. Assessment & Plan A&P 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 f/u with outpt primary, I can not see in clinic. backlog too great. 3 mo in most cases Time Spent With Patient Time: Total time spent is greater than 50% in coordination of care (as documented) at patient's floor/unit and/or counseling patient:
[2024-01-03] MEDS: NA SU/NAHCO3/KC/PEG (Golytely) 4,000 ML BTL 4000 ML PO (18:40)
[2024-01-03] MEDS: DiphenhydrAMINE 25 MG CAPSULE PO (23:23)
[2024-01-04] VITALS (16 sets, daily range): BP systolic 122–172; BP diastolic 65–89; PULSE 66–96; RESP 16–18; TEMP 36.5–37.7; O2SAT 92–98; BMI 41.0
[2024-01-04] MEDS: HYDROmorphone INJ 2 MG/ML VIAL 0.75 MG IVP ×4 (02:03→21:16)
[2024-01-04 05:13] LABS: Basophils % (Auto) 0 % (0-2.5); Eosinophils # (Auto) 0.1 Thou/mm3 (0.0-0.5); Eosinophils % (Auto) 1 % (0-10); Hematocrit 24.9 % (36.0-46.0); Immature Granulocytes % (Auto) 1 % (0-0); Immature Granulocytes Auto 0.14 Thou/mm3 (0.00-0.00); Lymphocytes # (Auto) 1.1 Thou/mm3 (1.0-4.8); Lymphocytes % (Auto) 12 % (10-50); Mean Corpuscular HGB Conc 31.7 g/dl (31.0-37.0); Mean Corpuscular Hemoglobin 29.3 pg (25.0-35.0); Mean Corpuscular Volume 92 fL (80-100); Monocytes # (Auto) 1.1 Thou/mm3 (0.0-0.8); Monocytes % (Auto) 11 % (0-12); Neutrophils # (Auto) 7.2 Thou/mm3 (1.8-7.7); Neutrophils % (Auto) 75 % (37-80); Nucleated Red Blood Cell % 0 /100 WBC (0); Platelet Count 240 Thou/mm3 (140-440); RDW Standard Deviation 47.1 fL (36.4-46.3); White Blood Count 9.7 Thou/mm3 (3.6-11.0)
[2024-01-04 05:14] LABS: Hemoglobin 7.9 g/dL (12.0-16.0)
[2024-01-04] MEDS: cephALEXin 250 MG CAPSULE 500 MG PO ×3 (05:51→21:18)
[2024-01-04] MEDS: METOCLOPRAMIDE INJ 5 MG/ML VIAL 2 ML IVP ×4 (05:51→23:40)
[2024-01-04] MEDS: hydrALAZINE HCL 25 MG TABLET PO ×3 (05:57→23:38)
[2024-01-04 06:05] LABS: Alanine Aminotransferase 148 U/L (10-49); Albumin, Serum 4.2 gm/dL (3.5-5.0); Albumin/Globulin Ratio 1.5 (1.2-2.2); Alkaline Phosphatase 889 U/L (46-116); Anion Gap 11 (7-16); Aspartate Amino Transferase 276 U/L (0-34); BUN/Creatinine Ratio 17 Ratio (12-20); Bilirubin,Total 0.6 mg/dL (0.3-1.2); Blood Urea Nitrogen 65 mg/dL (9-23); Calcium 8.8 mg/dL (8.3-10.6); Calcium (Corrected) 8.8 mg/dL (8.5-10.1); Carbon Dioxide 23.2 mMol/L (20.0-31.0); Chloride 103 mMol/L (98-107); Creatinine (Component) 3.9 mg/dL (0.6-1.3); Estimated Creatinine Clearance 21.1 mL/min (>60); Globulin 2.8 gm/dL (2.3-3.5); Glucose 120 mg/dL (74-106); Osmolality,Calculated 293 (275-295); Phosphorous 7.2 mg/dL (2.4-5.1); Potassium 4.2 mMol/L (3.4-5.1); Sodium 137 mMol/L (136-145); eGFR 13 See Note
[2024-01-04] MEDS: FUROSEMIDE INJ 10 MG/ML 4ML VIAL 40 MG IVP (08:09)
[2024-01-04] MEDS: PANTOPRAZOLE INJ 40 MG VIAL IV (08:09)
[2024-01-04] MEDS: SENNA TABLET 1 TAB PO (08:10)
[2024-01-04] MEDS: carVEDILOL 12.5 MG TABLET 25 MG PO ×2 (08:10→18:00)
[2024-01-04] MEDS: ZINC SULFATE 220 MG CAPSULE PO (08:10)
[2024-01-04] MEDS: amLODIPine BESYLATE 5 MG TABLET 10 MG PO (08:10)
[2024-01-04] MEDS: ASCORBIC ACID 250 MG TABLET 500 MG PO ×2 (08:10→21:19)
[2024-01-04] MEDS: Lisinopril 2.5 MG TABLET 10 MG PO (08:11)
[2024-01-04] MEDS: SEVELAMER CARBONATE 800 MG TABLET PO ×3 (08:11→17:59)
[2024-01-04] MEDS: DiphenhydrAMINE 25 MG CAPSULE PO ×2 (08:34→17:59)
[2024-01-04] MEDS: INSULIN LISPRO (AdmeLOG) 1 UNIT/0.01 ML UNIT SC (12:39)
--- NOTE | 2024-01-04 14:08 | ESPR_ITS ---
Documentation for date of: 01/04/24 Subjective Subjective Interval history: Patient is no acute overnight events. Patient seen and examined at bedside. Patient scheduled with IR for dialysis catheter intervention on Friday per nephrology. Patient is scheduled for colonoscopy tonight, patient is on GoLytely prep. Patient hemoglobin stable at 7.9. Will continue to monitor patient. Exam Vital Signs Temp Pulse Resp BP Pulse Ox O2 Del Method O2 Flow Rate 98.2 F 78 17 145/73 H 96 Oxy Mask 6 01/04/24 12:00 01/04/24 12:00 01/04/24 12:00 01/04/24 12:00 01/04/24 12:00 01/04/24 12:00 01/04/24 12:00 Narrative Exam Constitutional: well-developed, well-nourished, legally blind female. HEENT: NCAT, reactive round pupils b/l, saturating at 96% 6L Oxy Mask. Lung: CTAB, no wheezing, no rhonchi, no crackles. Heart: Regular S1S2, no murmurs, gallops, or rubs. Abdomen: Soft, non-tender, Normoactive bowel sounds. Extremities: No cyanosis, clubbing, No bilateral lower or upper extremity edema. Neurologic: No focal sensory or motor deficits noted, generally alert and oriented to person, place, time. Skin: Warm, dry, no lesions or rashes noted Objective Labs 01/07/24 05:08 01/07/24 05:08 Labs: Laboratory Results - last 24 hr 01/03/24 01/03/24 01/04/24 07:10 16:52 04:36 WBC 9.7 RBC 2.70 L Hgb 7.4 L 7.9 L Hct 23.2 L 24.9 L MCV 92 MCH 29.3 MCHC 31.7 RDW Std Deviation 47.1 H Plt Count 240 D Neut % (Auto) 75 Lymph % (Auto) 12 [place] % (Auto) 11 Eos % (Auto) 1 Baso % (Auto) 0 Neut # (Auto) 7.2 Lymph # (Auto) 1.1 [place] # (Auto) 1.1 H Eos # (Auto) 0.1 Baso # (Auto) 0.0 Immature Gran # (Auto) 0.14 H Absolute Nucleated RBC 0.00 Immature Gran % 1 H Nucleated RBC % 0 Sodium 137 Potassium 4.2 Chloride 103 Carbon Dioxide 23.2 Anion Gap 11 BUN 65 H Creatinine 3.9 H Estim Creat Clear Calc 21.1 L eGFR 13 L* BUN/Creatinine Ratio 17 Glucose 120 H Calculated Osmolality 293 Calcium 8.8 Corrected Calcium 8.8 Phosphorus 7.2 H Magnesium 2.0 Total Bilirubin 0.6 AST 276 H ALT 148 H Alkaline Phosphatase 889 H D Total Protein 7.0 Albumin 4.2 Globulin 2.8 Albumin/Globulin Ratio 1.5 Crossmatch See Detail Quality Measures Quality Measures none Assessment & Plan Assessment Current Active Medications: Generic Name Dose Route Start Last Admin Trade Name Freq PRN Reason Stop Dose Admin Acetaminophen 650 mg 01/01/24 08:16 01/03/24 13:28 Acetaminophen 325 Mg Tablet PO 01/29/24 20:51 650 mg Q6H PRN Administration MILD PAIN (1-3) OR FEVER > 101 Hydrocodone Bitart/Acetaminophen 1 tab 01/02/24 10:30 Hydrocodone/Apap 7.5/325 Tablet PO 01/07/24 10:29 Q6HR PRN PAIN SCALE 4-6 (Moderate Amlodipine Besylate 10 mg 12/31/23 09:00 01/04/24 08:10 Amlodipine Besylate 5 Mg Tablet PO 01/30/24 08:59 10 mg QDAY KARY Administration Ascorbic Acid 500 mg 01/01/24 21:00 01/04/24 08:10 Ascorbic Acid 250 Mg Tablet PO 01/31/24 20:59 500 mg BID KARY Administration Carvedilol 25 mg 01/02/24 17:30 01/04/24 08:10 Carvedilol 12.5 Mg Tablet PO 02/01/24 17:29 25 mg BIDWM KARY Administration Cephalexin HCl 500 mg 01/03/24 11:00 01/04/24 05:51 Cephalexin 250 Mg Capsule PO 01/10/24 10:59 500 mg Q8HR KARY Administration Dextrose 25 ml 12/30/23 21:05 Dextrose 50%-Water Inj 50 Ml Syringe IV 01/29/24 21:04 Q15MIN PRN BG 50-70 responsive npo pt Dextrose 50 ml 12/30/23 21:05 Dextrose 50%-Water Inj 50 Ml Syringe IV 01/29/24 21:04 Q15MIN PRN BG <50 OR BG <70 & pt unresponsive Diphenhydramine HCl 25 mg 01/03/24 22:21 01/04/24 08:34 Diphenhydramine 25 Mg Capsule PO 02/02/24 22:20 25 mg Q6HR PRN Administration Allergic Symptoms Furosemide 40 mg 01/03/24 09:00 01/04/24 08:09 Furosemide Inj 10 Mg/Ml 4ml Vial IVP 02/02/24 08:59 40 mg QDAY KARY Administration Gabapentin 300 mg 01/03/24 21:00 01/03/24 21:22 Gabapentin 300 Mg Capsule PO 02/02/24 20:59 300 mg HS KARY Administration Glucagon 1 mg 12/30/23 21:05 Glucagon Inj 1 Mg Vial IM Q15MIN PRN BG <70, and no IV access Hydralazine HCl 25 mg 12/31/23 09:00 01/04/24 05:57 Hydralazine Hcl 25 Mg Tablet PO 01/30/24 08:59 25 mg TID KARY Administration Hydromorphone HCl 0.75 mg 01/02/24 10:29 01/04/24 12:40 Hydromorphone Inj 2 Mg/Ml Vial IVP 01/07/24 10:25 0.75 mg Q3HR PRN Administration Breakthrough Pain Hydroxyzine HCl 25 mg 01/02/24 11:12 Hydroxyzine Hcl 25 Mg Tablet PO 01/30/24 00:06 HS PRN insomnia Insulin Human Lispro 0 unit 01/02/24 17:00 01/04/24 12:39 Insulin Lispro (Admelog) 1 Unit/0.01 Ml Unit SC 02/01/24 16:59 1 unit AC KARY Administration Protocol Lisinopril 10 mg 01/02/24 13:15 01/04/24 08:11 Lisinopril 2.5 Mg Tablet PO 02/01/24 13:14 10 mg QDAY KARY Administration Metoclopramide HCl 5 mg 01/02/24 20:15 01/04/24 12:40 Metoclopramide Inj 5 Mg/Ml Vial 2 Ml IVP 02/01/24 20:14 5 mg Q6HR KARY Administration Protocol Ondansetron HCl 4 mg 12/30/23 20:52 Ondansetron Inj 2 Mg/Ml Inj 2 Ml IV 01/29/24 20:51 Q6H PRN NAUSEA OR VOMITING Protocol Pantoprazole Sodium 40 mg 01/02/24 09:00 01/04/24 08:09 Pantoprazole Inj 40 Mg Vial IV 02/01/24 08:59 40 mg QDAY KARY Administration Sennosides 1 tab 12/31/23 09:00 01/04/24 08:10 Senna Tablet PO 01/30/24 08:59 1 tab QDAY KARY Administration Protocol Sevelamer Carbonate 800 mg 12/31/23 17:30 01/04/24 12:41 Sevelamer Carbonate 800 Mg Tablet PO 01/30/24 17:29 800 mg TIDWM KARY Administration Zinc Sulfate 220 mg 01/02/24 09:00 01/04/24 08:10 Zinc Sulfate 220 Mg Capsule PO 02/01/24 08:59 220 mg QDAY KARY Administration Plan Assessment and plan: Summary: Ms. Costa 48-year-old female with past medical history of type 2 diabetes mellitus (insulin-dependent), hypertension, kidney cancer status post partial nephrectomy, and history of right foot osteomyelitis status post debridement and amputations. Found to be septic with HR 104, WBC elevated, Cr at 3.0. Admitted for CHF and left great toe osteomyelitis work-up and management. Found to have low hemoglobin at 71. GI was consulted, status post EGD, scheduled for colonoscopy. #Suspected GI bleed #Normocytic anemia #Gastritis #Esophagitis #Nonerosive lesion at GE junction #Status post EGD 01/02/24 Ddx: Hemorrhoids, inflammatory bowel disease, or colon cancer Patient suffers from constipation. She has never had a colonoscopy. Denies bloody stool. Denies dizziness or generalized weakness. Hemoglobin decreased to 6.4 from initial 8.8 on 01/03/24. EGD 01/01 showed gastritis, esophagitis, nonerosive lesions at the GE junction. No source of bleeding identified. 1 unit packed red blood cells transfused for low hemoglobin. Shortly after, patient experienced fevers and a rate of transfusion was decreased. Plan: -Gastroenterology consulted, recommends clear liquid diet, GoLytely followed by colonoscopy -Patient on GoLytely prep -Clear liquid diet -FOBT, pending -Monitor CBC #Acutely decompensated congestive heart failure, resolving #HFpEF EF 60 to 65% Most likely secondary to hypertension Patient presented with shortness of breath,orthopnea,and PND, requiring oxygen. Oxygen requirement is improving. Lung sounds now clear on auscultation. Upper and lower extremity edema resolved. Mild chronic heart failure, prominent vascular congestion confirmed on chest x- ray. Hypertension and obesity led to patient's decompensated heart failure, improving with tighter controlled BP. Cannot rule out cardiorenal in setting of partial nephrectomy leading to possible dysfunction in left kidney. Echo 06/22/2023: EF 60-65%, trace MR, AR, and mild TR. BNP mildly elevated at 165, troponin negative. NYHA class III. Echo: Normal LV size and function. Estimated EF 60-65%. Mild LVH. Diatsolic dysfunction stage 1 Normal RV size and function. Mild MR, TR. There is a small circumferential pericardial effusion. No evidence of cardiac tamponade. Plan: -Continue Lasix 40 mg IV daily, per nephrology -Fluid restriction (1.2 L), daily weight checks, Strict I & O -CMP in am -Scheduled for permanent dialysis catheter placement 01/06/24 #CKD stage V #Acute on chronic CKD #Nephrotic syndrome #Renal cell carinoma Elevated creatinine/low GFR currently worsening in setting of nephrotic syndrome, requiring dialysis. Renal ultrasound showed: Right kidney 12.3 x 7.2 x 7.1 cm cortex 2.2 cm. Right kidney 11.8 x 6.2 x 5.7 cm cortex 2.3 cm. No hydronephrosis or renal calculi. Bladder prevoid volume 2 87 cc unable to void. Urine random total protein 382. Urine random creatinine 23. Urine random sodium 96. Creatinine is 3.8, GFR remains at 14. Considering patient's worsening kidney function, discussion was held with content producer who recommends dialysis. Plan: -Nephrology consulted; recommends dialysis catheter followed by dialysis on 01/06/2024 when IR is available for replacement. -Follow-up renal panel -Avoid nephrotoxic agents #Osteomyelitis, left great toe #History of osteomyelitis, right foot #S/p left 1st metatarsal amputation on 01/01/2024-Post op day 3 Patient presented with pain in the left foot after hitting it against an object; open foot ulcer x2 weeks. XR and MRI of the left foot showed osteomyelitis of the proximal and distal phalanges first digit. Distal metatarsal head division and transmetatarsal amputation performed by general surgeon. Blood culture prelim negative x2. Plan: -Infectious disease was consulted; recommends oral antibiotics for a few days (4-5d) after amputation -General surgery consulted; amputated transmetatarsal, Day 3 -Pain: norco 7.5/325 and dilaudid .75 IV push every 3 hours -Wound care Antimicrobials: -Keflex 500 mg every 6 hours (01/01/2024 for total 4-5 days -Doxycycline 100 mg IV BID (12/29-12/31) and Ceftriaxone 2gm daily (12/31/2023- 01/01/24) #B/L Pleural effusion, confirmed on xray-improving Ultrasound-guided thoracentesis showed small bilateral perfusion, no drainage done. Serum LDH is 215. Symptomatic improvement with IV lasix. -Will consider thoracenthesis if symptoms worsen. #Hypertensive urgency, resolved #Hypertension Chronic, uncontrolled BP is elevated >150 SBP. Her elevated blood pressure is likely secondary to pain. Plan: -Continue Lisinopril 10mg daily and Coreg 25mg BID WM -Continue Amlodipine 10 mg daily and Hydralazine 25 mg TID oral #Type 2 diabetes mellitus, insulin-dependent (A1c 9.7%-12/31/2023) #Obesity Chronic, uncontrolled Glucose is currently controlled. Patient home lantus 30 units daily. Plan: -SSI lispro -glargine 15units. #Diabetic neuropathy Hx of Diabetic neuropathy. Patient was found drowsy today, hence decreased dosage of gabapentin. ?Gabapentin 300 mg orally daily. #Hypertriglyceridemia Secondary to obesity Triglycerides 156, cholesterol 146, LDL 69, HDL 47 Plan: -Consider adding fenofibrate #Elevated Alkaline phosphatase Possibly 2/2 cancer and possible mets -May consider CT scan for possible cancer mets. #Polysubstance use Patient has a history of methamphetamine and marijuana use. She states that she uses methamphetamines once weekly and marijuana daily. U tox positive for opiates, thiamine, marijuana. -Educated patient -F/up outpatient #Sepsis -resolved #Hyperkalemia, resolved #Hyperphosphatemia- resolved #Metabolic acidosis, resolved #Mild transaminitis-resolved #Hyperchloremia, resolved DVT prophylaxis: Heparin SC GI prophylaxis: Pantoprazole 40 mg PO daily Diet: Clear Liquid Lines: Peripheral IV Code status: Full Code Case discussed with Attending Dr. Potter and Dr. Arreguin PGY3. Victorino Garvey PGY1 LI discussed with and supervised the hospital intern physician who took care of this patient. I personally saw and examined the patient and discussed the assessment and plan with the entire medicine team, including my attending Dr. Neri Potter MD. I agree with the assessment and plan as documented above. Monty Arreguin M.D. Internal Medicine PGY-3 Attending Provider Attestation/Addendum Face to face evaluation was performed by me. I have personally seen and examined the patient. I discussed the assessment and plan with the entire medicine team. I reviewed available medical records, imaging studies, laboratory results. I agree with the above subjective data, objective findings, assessment and plan except as corrected by me or noted below
--- NOTE | 2024-01-04 14:10 | PD.ADDPROG ---
Addendum Progress Note Addendum Date of report being addended: 01/04/24 Narrative: Face to face evaluation was performed by me. I have personally seen and examined the patient. I discussed the assessment and plan with the entire medicine team. I reviewed available medical records, imaging studies, laboratory results. I agree with the above subjective data, objective findings, assessment and plan except as corrected by me or noted below Severe volume overload Bilateral pleural effusions Acute kidney injury on underlying CKD suspect stage IV baseline Possible nephrotic syndrome Diabetes type 2 uncontrolled with hyperglycemia Left foot osteomyelitis and cellulitis Anemia, possible GI bleed Anasarca -Status post amputation by surgery on January 01, 2024, oral antibiotics for total of 4-5 days after surgery. Cephalexin chosen for coverage, renally dose . -Continue with diuresis 40 mg IV furosemide daily for now. Most likely she is heading towards dialysis discussed with Dr Moreland specialty finishing utility person. IR to place dialysis tunneled catheter once they are available, no emergent dialysis needed at this point. -Surgery for amputation for osteomyelitis , plan to treat with oral antibiotics for cellulitis of left foot. I believe there are no surgical cultures obtained. Insulins for diabetes Monitor clinical course closely Gastroenterology consulted, status post EGD, plan to follow with colonoscopy , bowel preparation
--- NOTE | 2024-01-04 15:33 | ESPR_ITS ---
Documentation for date of: 01/04/24 Subjective Subjective Interval history: Interval history: Ms. Costa is a 48 y/o F with PMHx significant for type 2 diabetes mellitus (insulin-dependent), hypertension, kidney cancer status post partial nephrectomy, and history of right foot osteomyelitis status post debridement and amputations now presents with shortness of breath and left great toe pain. Patient states that she has been short of breath for last couple of days, endorsing orthopnea and PND with associated bilateral lower extremity edema, bilateral upper extremity edema, and swelling around the eyes and tongue. She denies chest pain, pressure, and tightness. Also reports pain in left great toe initially with purulent drainage, now with serosanguineous material on bed sheets in ED. Denies fever and chills but endorses sweats. Otherwise denies dysuria, hematuria, or foul-smelling urine. Labs at time of admission showed BUN 48 (baseline 19?22), Assistant [employer] 3.0 (baseline 1.5), GFR 18. Chest x-ray showed heart failure pattern, bibasilar pneumonia, moderate left and large right pleural effusions. X-ray of left foot showed significant osteo of distal phalanx of first digit. Patient admitted for CHF exacerbation and left toe osteomyelitis. Nephrology was consulted due to KIM on CKD. Patient seen in ED resting in bed. Patient had bilateral lower extremity edema, worse than usual per patient. Lungs clear to auscultation, poor lung sounds due to body habitus. Labs at time of exam showed sodium 136, potassium 5.5, bicarb 16.3, BUN 51, creatinine 3.0, eGFR 18. Plan for additional diuretics, suspect cardiorenal syndrome due to fluid overload state. 12/31: Patient seen resting comfortably in bed. Patient has lower extremity edema, mildly improved. Lungs clear to auscultation, poor lung sounds due to body habitus. Sodium 138, potassium 4.3, bicarb 20.1, BUN 55, creatinine 2.4, eGFR 16. Plan for amputation of left great toe later today. 01/04/2024 patient currently seen in medical floor. She is blind from diabetic retinopathy. She has severe progressive diabetic nephropathy with nephrotic range proteinuria and nephrotic syndrome with significant anasarca. On diuretics. GFR declining. Had a long conversation with patient regarding renal replacement therapy as her GFR is less than 15 and she agreed for dialysis if indicated. Currently on diuretics. Cannot give any fluids due to anasarca. Will proceed with dialysis on Friday. Review of Systems Review of Systems Narrative Review of Systems: CONSTITUTIONAL: Patient denies any fever, chills. HEENT: Patient blind CARDIOVASCULAR: Patient denies any chest pain, shortness of breath ++ swelling in the lower extremities. PULMONARY: Patient denies any shortness of breath, cough. GASTROINTESTINAL: Patient denies any abdominal pain, constipation, nausea, vomiting, diarrhea. GENITOURINARY: Patient denies any urinary symptoms of burning or frequency or hematuria, denies any form in the urine. SKIN: Denies any rash. MUSCULOSKELETAL: does have gait imbalance NEUROLOGICAL: Denies any neurological problems of strokes, seizures or confusion. Denies any memory problems. Legally blind from diabetic retinopathy PSYCHIATRIC: Denies any depression or anxiety. LYMPHATICS : No lymphadenopathy Exam Vital Signs Temp Pulse Resp BP Pulse Ox O2 Del Method O2 Flow Rate 36.8 C 78 17 145/73 H 96 Oxy Mask 6 01/04/24 12:00 01/04/24 12:00 01/04/24 12:00 01/04/24 12:00 01/04/24 12:00 01/04/24 12:00 01/04/24 12:00 Narrative Exam GENERAL APPEARANCE: Patient seems to be comfortable, adequately hydrated and nourished. HEENT: Patient blind CARDIOVASCULAR: Heart regular, no murmurs LUNGS/CHEST: Chest clear to auscultation. No rales, rhonchi, wheezing ABDOMEN: Soft, nontender, nondistended. No masses. Normal bowel sounds. EXTREMITIES: 2+ edema in the lower extremities SKIN: Right 2 toes missing. Left great toe amputated MUSCULOSKELETAL: In bed NEUROLOGICAL : No neurological deficits Objective Labs 01/05/24 04:58 01/05/24 04:58 Labs: Laboratory Results - last 24 hr 01/03/24 01/03/24 01/04/24 07:10 16:52 04:36 WBC 9.7 RBC 2.70 L Hgb 7.4 L 7.9 L Hct 23.2 L 24.9 L MCV 92 MCH 29.3 MCHC 31.7 RDW Std Deviation 47.1 H Plt Count 240 D Neut % (Auto) 75 Lymph % (Auto) 12 [place] % (Auto) 11 Eos % (Auto) 1 Baso % (Auto) 0 Neut # (Auto) 7.2 Lymph # (Auto) 1.1 [place] # (Auto) 1.1 H Eos # (Auto) 0.1 Baso # (Auto) 0.0 Immature Gran # (Auto) 0.14 H Absolute Nucleated RBC 0.00 Immature Gran % 1 H Nucleated RBC % 0 Sodium 137 Potassium 4.2 Chloride 103 Carbon Dioxide 23.2 Anion Gap 11 BUN 65 H Creatinine 3.9 H Estim Creat Clear Calc 21.1 L eGFR 13 L* BUN/Creatinine Ratio 17 Glucose 120 H Calculated Osmolality 293 Calcium 8.8 Corrected Calcium 8.8 Phosphorus 7.2 H Magnesium 2.0 Total Bilirubin 0.6 AST 276 H ALT 148 H Alkaline Phosphatase 889 H D Total Protein 7.0 Albumin 4.2 Globulin 2.8 Albumin/Globulin Ratio 1.5 Crossmatch See Detail Assessment & Plan Assessment and plan (1) Osteomyelitis of great toe: Status: Acute Additional Assessment & Plan Additional Plan: Tati Costa is a 48-year-old female with past medical history of type 2 diabetes mellitus (insulin-dependent), hypertension, kidney cancer status post partial nephrectomy, and history of right foot osteomyelitis status post debridement and amputations admitted for CHF and left great toe osteomyelitis work-up and management. #Acute on chronic kidney injury #CKD stage IV #Nephrotic syndrome Patient presented with poor kidney function, BUN, creatinine elevated above baseline. Patient has history of CHF, appears to be in CHF exacerbation clinically based on reported symptoms of orthopnea, exam findings of bilateral lower extremity edema increased compared to baseline per patient. Renal ultrasound showed no hydronephrosis or renal stones. BLE mildly improved with diuresis. Urine protein/creatinine 16.6 g Had a long conversation with patient regarding progressive diabetic nephropathy, proteinuria, anasarca and significant fluid overload. On diuretics. Worsening renal function. GFR less than 15. Patient agreed for dialysis. Will plan on Friday. IR closed Friday. Plan: -Renally dose medications -Avoid nephrotoxic meds -Follow daily labs -Diuretics: Continue with Lasix daily # ?New onset CHF//diabetic nephropathy #Anasarca #Osteomyelitis, left great toe #History of osteomyelitis, right foot #Type 2 diabetes mellitus, insulin-dependent #Hypertension #Hypertensive urgency Plan as per primary team Thank you for allowing me to participate in the care of this patient. Plan of care discussed with primary team.
[2024-01-04] MEDS: HYDROcodone/APAP 7.5/325 TABLET 1 TAB PO (18:01)
--- NOTE | 2024-01-04 18:15 | PC.NURSE ---
notified Dr. Arreguin of pt blood pressure 172/89 and Upper/lower extremity swelling, to evalute pt, Orders to follow.
--- NOTE | 2024-01-04 18:22 | XR_ITS ---
Examination: Duplex scan of the lower extremity, unilateral left complete Date and time of exam: January 04, 2024 11:53 PM Indications: Left leg pain beginning 6 days ago Technique: Duplex scan of the extremity veins using B-mode/grayscale imaging and Doppler spectral analysis and color flow Attention is directed to internal echogenicity, compression and augmentation involving these veins, color flow assessment, spectral analysis Findings: Major deep venous structures in the extremity demonstrate normal course and caliber. There is no evidence of deep vein thrombosis. Normal color flow and spectral analysis Impression: Negative for DVT..
--- NOTE | 2024-01-04 18:58 | PD.IMPROG ---
Documentation for date of: 01/04/24 Subjective Subjective Interval history: Patient was scheduled for colonoscopy she is not clear [place] enemas Additional GoLytely Exam Vital Signs Temp Pulse Resp BP Pulse Ox O2 Del Method O2 Flow Rate 99.3 F 77 17 172/89 H 97 Oxy Mask 6 01/04/24 16:00 01/04/24 18:00 01/04/24 16:00 01/04/24 18:00 01/04/24 16:00 01/04/24 16:00 01/04/24 16:00 Objective Labs 01/04/24 04:36 01/04/24 04:36 Labs: Laboratory Results - last 24 hr 01/04/24 04:36 WBC 9.7 RBC 2.70 L Hgb 7.9 L Hct 24.9 L MCV 92 MCH 29.3 MCHC 31.7 RDW Std Deviation 47.1 H Plt Count 240 D Neut % (Auto) 75 Lymph % (Auto) 12 [place] % (Auto) 11 Eos % (Auto) 1 Baso % (Auto) 0 Neut # (Auto) 7.2 Lymph # (Auto) 1.1 [place] # (Auto) 1.1 H Eos # (Auto) 0.1 Baso # (Auto) 0.0 Immature Gran # (Auto) 0.14 H Absolute Nucleated RBC 0.00 Immature Gran % 1 H Nucleated RBC % 0 Sodium 137 Potassium 4.2 Chloride 103 Carbon Dioxide 23.2 Anion Gap 11 BUN 65 H Creatinine 3.9 H Estim Creat Clear Calc 21.1 L eGFR 13 L* BUN/Creatinine Ratio 17 Glucose 120 H Calculated Osmolality 293 Calcium 8.8 Corrected Calcium 8.8 Phosphorus 7.2 H Magnesium 2.0 Total Bilirubin 0.6 AST 276 H ALT 148 H Alkaline Phosphatase 889 H D Total Protein 7.0 Albumin 4.2 Globulin 2.8 Albumin/Globulin Ratio 1.5 Impressions Impression: # Acute posthemorrhagic anemia Continue GoLytely prep Colonoscopy postponed to tomorrow Assessment & Plan A&P 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 f/u with outpt primary, I can not see in clinic. backlog too great. 3 mo in most cases Time Spent With Patient Time: Total time spent is greater than 50% in coordination of care (as documented) at patient's floor/unit and/or counseling patient:
[2024-01-04] MEDS: hydrALAZINE INJ 20 MG/ML VIAL 10 MG IV (19:20)
[2024-01-04] MEDS: NA SU/NAHCO3/KC/PEG (Golytely) 4,000 ML BTL 4000 ML PO (21:09)
[2024-01-04] MEDS: GABAPENTIN 300 MG CAPSULE PO (21:19)
[2024-01-05] VITALS (22 sets, daily range): BP systolic 131–180; BP diastolic 61–89; PULSE 67–96; RESP 12–19; TEMP 36.4–37.1; O2SAT 93–96
[2024-01-05] MEDS: HYDROcodone/APAP 7.5/325 TABLET 1 TAB PO ×3 (00:22→23:51)
[2024-01-05] MEDS: HYDROmorphone INJ 2 MG/ML VIAL 0.75 MG IVP ×4 (04:12→21:12)
[2024-01-05] MEDS: DiphenhydrAMINE 25 MG CAPSULE PO ×3 (04:17→21:15)
[2024-01-05] MEDS: cephALEXin 250 MG CAPSULE 500 MG PO ×3 (05:02→21:15)
[2024-01-05] MEDS: hydrALAZINE HCL 25 MG TABLET PO ×3 (05:02→21:15)
[2024-01-05] MEDS: METOCLOPRAMIDE INJ 5 MG/ML VIAL 2 ML IVP ×4 (05:03→23:53)
[2024-01-05 05:44] LABS: Mean Corpuscular HGB Conc 32.1 g/dl (31.0-37.0); Mean Corpuscular Hemoglobin 29.3 pg (25.0-35.0); Mean Corpuscular Volume 91 fL (80-100); RDW Standard Deviation 46.1 fL (36.4-46.3); Red Blood Count 2.63 Miln/mm3 (4.00-5.20); White Blood Count 10.1 Thou/mm3 (3.6-11.0)
[2024-01-05 05:45] LABS: Basophils % (Auto) 0 % (0-2.5); Eosinophils # (Auto) 0.2 Thou/mm3 (0.0-0.5); Eosinophils % (Auto) 2 % (0-10); Immature Granulocytes % (Auto) 3 % (0-0); Immature Granulocytes Auto 0.26 Thou/mm3 (0.00-0.00); Lymphocytes # (Auto) 1.7 Thou/mm3 (1.0-4.8); Lymphocytes % (Auto) 17 % (10-50); Monocytes # (Auto) 1.3 Thou/mm3 (0.0-0.8); Monocytes % (Auto) 13 % (0-12); Neutrophils # (Auto) 6.6 Thou/mm3 (1.8-7.7); Neutrophils % (Auto) 66 % (37-80); Nucleated Red Blood Cell % 0 /100 WBC (0); Platelet Count 302 Thou/mm3 (140-440)
[2024-01-05 05:50] LABS: Hemoglobin 7.7 g/dL (12.0-16.0)
[2024-01-05 06:22] LABS: Alanine Aminotransferase 116 U/L (10-49); Albumin, Serum 3.9 gm/dL (3.5-5.0); Albumin/Globulin Ratio 1.4 (1.2-2.2); Alkaline Phosphatase 761 U/L (46-116); Anion Gap 11 (7-16); Aspartate Amino Transferase 85 U/L (0-34); BUN/Creatinine Ratio 15 Ratio (12-20); Bilirubin,Total 0.4 mg/dL (0.3-1.2); Blood Urea Nitrogen 59 mg/dL (9-23); Calcium 8.8 mg/dL (8.3-10.6); Calcium (Corrected) 8.9 mg/dL (8.5-10.1); Carbon Dioxide 25.4 mMol/L (20.0-31.0); Chloride 103 mMol/L (98-107); Creatinine (Component) 3.9 mg/dL (0.6-1.3); Estimated Creatinine Clearance 21.1 mL/min (>60); Globulin 2.8 gm/dL (2.3-3.5); Glucose 105 mg/dL (74-106); Magnesium 1.9 mg/dL (1.6-2.6); Osmolality,Calculated 294 (275-295); Phosphorous 6.2 mg/dL (2.4-5.1); Potassium 3.6 mMol/L (3.4-5.1); Sodium 139 mMol/L (136-145); Total Protein 6.7 gm/dL (5.7-8.2); eGFR 13 See Note
[2024-01-05] MEDS: ASCORBIC ACID 250 MG TABLET 500 MG PO ×2 (08:57→21:14)
[2024-01-05] MEDS: SEVELAMER CARBONATE 800 MG TABLET PO ×3 (08:57→18:53)
[2024-01-05] MEDS: carVEDILOL 12.5 MG TABLET 25 MG PO (08:58)
[2024-01-05] MEDS: ZINC SULFATE 220 MG CAPSULE PO (08:58)
[2024-01-05] MEDS: Lisinopril 2.5 MG TABLET 10 MG PO (09:00)
[2024-01-05] MEDS: amLODIPine BESYLATE 5 MG TABLET 10 MG PO (09:00)
[2024-01-05] MEDS: FUROSEMIDE INJ 10 MG/ML 4ML VIAL 40 MG IVP ×3 (09:00→21:19)
[2024-01-05] MEDS: PANTOPRAZOLE INJ 40 MG VIAL IV (09:00)
--- NOTE | 2024-01-05 09:47 | PD.SURPROG ---
Documentation for date of: 01/05/24 Subjective Subjective Narrative: Patient is seen and examined. She is resting comfortably Exam Vital Signs Temp Pulse Resp BP Pulse Ox O2 Del Method O2 Flow Rate 98.1 F 78 19 147/68 H 93 L Oxy Mask 4 01/05/24 08:00 01/05/24 09:00 01/05/24 08:00 01/05/24 09:00 01/05/24 08:00 01/05/24 08:00 01/05/24 07:07 Constitutional Constitutional: no acute distress Routine Extremities Exam Comments: Left foot amputation site incision is intact. There is mild erythema and edema, no bleeding or drainage Assessment & Plan Assessment Additional comments: Status post transmetatarsal amputation of left first toe Plan Dressings changed. Wound care as directed. No weightbearing on left lower extremity for 6 weeks Procedures Procedures Transmetatarsal amputation of left first toe
--- NOTE | 2024-01-05 10:06 | ESPR_ITS ---
Documentation for date of: 01/05/24 Subjective Subjective Interval history: Interval history: Ms. Costa is a 48 y/o F with PMHx significant for type 2 diabetes mellitus (insulin-dependent), hypertension, kidney cancer status post partial nephrectomy, and history of right foot osteomyelitis status post debridement and amputations now presents with shortness of breath and left great toe pain. Patient states that she has been short of breath for last couple of days, endorsing orthopnea and PND with associated bilateral lower extremity edema, bilateral upper extremity edema, and swelling around the eyes and tongue. She denies chest pain, pressure, and tightness. Also reports pain in left great toe initially with purulent drainage, now with serosanguineous material on bed sheets in ED. Denies fever and chills but endorses sweats. Otherwise denies dysuria, hematuria, or foul-smelling urine. Labs at time of admission showed BUN 48 (baseline 19?22), Senior Mobile Application Developer 3.0 (baseline 1.5), GFR 18. Chest x-ray showed heart failure pattern, bibasilar pneumonia, moderate left and large right pleural effusions. X-ray of left foot showed significant osteo of distal phalanx of first digit. Patient admitted for CHF exacerbation and left toe osteomyelitis. Nephrology was consulted due to KIM on CKD. Patient seen in ED resting in bed. Patient had bilateral lower extremity edema, worse than usual per patient. Lungs clear to auscultation, poor lung sounds due to body habitus. Labs at time of exam showed sodium 136, potassium 5.5, bicarb 16.3, BUN 51, creatinine 3.0, eGFR 18. Plan for additional diuretics, suspect cardiorenal syndrome due to fluid overload state. 12/31: Patient seen resting comfortably in bed. Patient has lower extremity edema, mildly improved. Lungs clear to auscultation, poor lung sounds due to body habitus. Sodium 138, potassium 4.3, bicarb 20.1, BUN 55, creatinine 2.4, eGFR 16. Plan for amputation of left great toe later today. 01/05/2024 patient currently seen in medical floor. She is blind from diabetic retinopathy. She has severe progressive diabetic nephropathy with nephrotic range proteinuria and nephrotic syndrome with significant anasarca. On diuretics. GFR declining. Had a long conversation with patient regarding renal replacement therapy as her GFR is less than 15 and she agreed for dialysis if indicated. Currently on diuretics. Cannot give any fluids due to anasarca. Labs, medications reviewed. Will proceed with dialysis in a.m. Patient complaining of significant edema. Will increase the Lasix to 3 times daily. Plan of care discussed with primary team Review of Systems Review of Systems Narrative Review of Systems: CONSTITUTIONAL: Patient denies any fever, chills. HEENT: Patient blind CARDIOVASCULAR: Patient denies any chest pain, shortness of breath ++ swelling in the lower extremities. PULMONARY: Patient denies any shortness of breath, cough. GASTROINTESTINAL: Patient denies any abdominal pain, constipation, nausea, vomiting, diarrhea. GENITOURINARY: Patient denies any urinary symptoms of burning or frequency or hematuria, denies any form in the urine. SKIN: Denies any rash. MUSCULOSKELETAL: does have gait imbalance NEUROLOGICAL: Denies any neurological problems of strokes, seizures or confusion. Denies any memory problems. Legally blind from diabetic retinopathy PSYCHIATRIC: Denies any depression or anxiety. LYMPHATICS : No lymphadenopathy Exam Vital Signs Temp Pulse Resp BP Pulse Ox O2 Del Method O2 Flow Rate 37.1 C 76 15 131/67 H 93 L Oxy Mask 3 01/05/24 11:53 01/05/24 14:23 01/05/24 11:53 01/05/24 14:23 01/05/24 11:53 01/05/24 11:53 01/05/24 11:53 Narrative Exam GENERAL APPEARANCE: Patient seems to be comfortable, adequately hydrated and nourished. HEENT: Patient blind CARDIOVASCULAR: Heart regular, no murmurs LUNGS/CHEST: Chest clear to auscultation. No rales, rhonchi, wheezing ABDOMEN: Soft, nontender, nondistended. No masses. Normal bowel sounds. EXTREMITIES: 2+ edema in the lower extremities SKIN: Right 2 toes missing. Left great toe amputated MUSCULOSKELETAL: In bed NEUROLOGICAL : No neurological deficits Objective Labs 01/05/24 04:58 01/05/24 04:58 Labs: Laboratory Results - last 24 hr 01/05/24 04:58 WBC 10.1 RBC 2.63 L Hgb 7.7 L Hct 24.0 L MCV 91 MCH 29.3 MCHC 32.1 RDW Std Deviation 46.1 Plt Count 302 D Neut % (Auto) 66 Lymph % (Auto) 17 [place] % (Auto) 13 H Eos % (Auto) 2 Baso % (Auto) 0 Neut # (Auto) 6.6 Lymph # (Auto) 1.7 [place] # (Auto) 1.3 H Eos # (Auto) 0.2 Baso # (Auto) 0.0 Immature Gran # (Auto) 0.26 H Absolute Nucleated RBC 0.00 Immature Gran % 3 H Nucleated RBC % 0 Sodium 139 Potassium 3.6 D Chloride 103 Carbon Dioxide 25.4 Anion Gap 11 BUN 59 H Creatinine 3.9 H Estim Creat Clear Calc 21.1 L eGFR 13 L* BUN/Creatinine Ratio 15 Glucose 105 Calculated Osmolality 294 Calcium 8.8 Corrected Calcium 8.9 Phosphorus 6.2 H Magnesium 1.9 Total Bilirubin 0.4 AST 85 H ALT 116 H Alkaline Phosphatase 761 H D Total Protein 6.7 Albumin 3.9 Globulin 2.8 Albumin/Globulin Ratio 1.4 Assessment & Plan Assessment and plan (1) Osteomyelitis of great toe: Status: Acute Additional Assessment & Plan Additional Plan: Tati Csota is a 48-year-old female with past medical history of type 2 diabetes mellitus (insulin-dependent), hypertension, kidney cancer status post partial nephrectomy, and history of right foot osteomyelitis status post debridement and amputations admitted for CHF and left great toe osteomyelitis work-up and management. #Acute on chronic kidney injury #CKD stage IV #Nephrotic syndrome Patient presented with poor kidney function, BUN, creatinine elevated above baseline. Patient has history of CHF, appears to be in CHF exacerbation clinically based on reported symptoms of orthopnea, exam findings of bilateral lower extremity edema increased compared to baseline per patient. Renal ultrasound showed no hydronephrosis or renal stones. BLE mildly improved with diuresis. Urine protein/creatinine 16.6 g Had a long conversation with patient regarding progressive diabetic nephropathy, proteinuria, anasarca and significant fluid overload. On diuretics. Worsening renal function. GFR less than 15. Patient agreed for dialysis. Will plan on Friday. IR closed Friday. Plan: -Renally dose medications -Avoid nephrotoxic meds -Follow daily labs -Diuretics: Continue with Lasix daily # ?New onset CHF//diabetic nephropathy #Anasarca #Osteomyelitis, left great toe #History of osteomyelitis, right foot #Type 2 diabetes mellitus, insulin-dependent #Hypertension #Hypertensive urgency Plan as per primary team Thank you for allowing me to participate in the care of this patient. Plan of care discussed with primary team.
[2024-01-05] MEDS: INSULIN LISPRO (AdmeLOG) 1 UNIT/0.01 ML UNIT SC (11:45)
--- NOTE | 2024-01-05 14:21 | ESPR_ITS ---
<Statement entered by Andres Crump MD - 01/06/24 14:28> Senior Resident Attestation: I supervised/discussed management plan with resident physician Dr. Savage, and was involved in the care of this patient. I personally saw and examined the patient and discussed the assessment and plan with the entire medicine team, including my attending. I agree with the assessment and plan as documented. Patient's care was discussed with attending physician, Dr. Abbey Crump MD PGY-3 Documentation for date of: 01/05/24 Subjective Subjective Interval history: No acute overnight events. Patient seen and examined at bedside. Labs reviewed. Patient endorses sore throat from GoLytely prep. She also endorses dry mouth. Patient denies chills, chest pain, palpitation, shortness of breath,nausea, vomiting. Patient stool is still dark in color. Will continue tapwater and GoLytely prep per GI recommendations. Possible colonoscopy tomorrow if patient's stool fully clears. Pending dialysis catheter insertion followed by dialysis per nephrology recs. Exam Vital Signs Temp Pulse Resp BP Pulse Ox O2 Del Method O2 Flow Rate 98.7 F 72 15 146/72 H 93 L Oxy Mask 3 01/05/24 11:53 01/05/24 11:53 01/05/24 11:53 01/05/24 11:53 01/05/24 11:53 01/05/24 11:53 01/05/24 11:53 Narrative Exam Constitutional: well-developed, well-nourished, legally blind female. HEENT: NCAT, reactive round pupils b/l, saturating at oxymask. Lung: CTAB, no wheezing, no rhonchi, no crackles. Heart: Regular S1S2, no murmurs, gallops, or rubs Abdomen: Soft, non-tender, Normoactive bowel sounds. Extremities: No cyanosis, clubbing, No upper extremity edema. 1+ nonpitting edema left lower extremity. Wound gauze wrapped around left foot s/p amputation of great toe. Neurologic: No focal sensory or motor deficits noted, generally alert and oriented to person, place, time. Skin: Warm, dry, no lesions or rashes noted Objective Labs 01/10/24 05:50 01/10/24 05:50 Labs: Laboratory Results - last 24 hr 01/05/24 04:58 WBC 10.1 RBC 2.63 L Hgb 7.7 L Hct 24.0 L MCV 91 MCH 29.3 MCHC 32.1 RDW Std Deviation 46.1 Plt Count 302 D Neut % (Auto) 66 Lymph % (Auto) 17 [place] % (Auto) 13 H Eos % (Auto) 2 Baso % (Auto) 0 Neut # (Auto) 6.6 Lymph # (Auto) 1.7 [place] # (Auto) 1.3 H Eos # (Auto) 0.2 Baso # (Auto) 0.0 Immature Gran # (Auto) 0.26 H Absolute Nucleated RBC 0.00 Immature Gran % 3 H Nucleated RBC % 0 Sodium 139 Potassium 3.6 D Chloride 103 Carbon Dioxide 25.4 Anion Gap 11 BUN 59 H Creatinine 3.9 H Estim Creat Clear Calc 21.1 L eGFR 13 L* BUN/Creatinine Ratio 15 Glucose 105 Calculated Osmolality 294 Calcium 8.8 Corrected Calcium 8.9 Phosphorus 6.2 H Magnesium 1.9 Total Bilirubin 0.4 AST 85 H ALT 116 H Alkaline Phosphatase 761 H D Total Protein 6.7 Albumin 3.9 Globulin 2.8 Albumin/Globulin Ratio 1.4 Quality Measures Quality Measures none Assessment & Plan Assessment Current Active Medications: Generic Name Dose Route Start Last Admin Trade Name Freq PRN Reason Stop Dose Admin Acetaminophen 650 mg 01/01/24 08:16 01/03/24 13:28 Acetaminophen 325 Mg Tablet PO 01/29/24 20:51 650 mg Q6H PRN Administration MILD PAIN (1-3) OR FEVER > 101 Hydrocodone Bitart/Acetaminophen 1 tab 01/02/24 10:30 01/05/24 09:17 Hydrocodone/Apap 7.5/325 Tablet PO 01/07/24 10:29 1 tab Q6HR PRN Administration PAIN SCALE 4-6 (Moderate Amlodipine Besylate 10 mg 12/31/23 09:00 01/05/24 09:00 Amlodipine Besylate 5 Mg Tablet PO 01/30/24 08:59 10 mg QDAY KARY Administration Ascorbic Acid 500 mg 01/01/24 21:00 01/05/24 08:57 Ascorbic Acid 250 Mg Tablet PO 01/31/24 20:59 500 mg BID KARY Administration Carvedilol 25 mg 01/02/24 17:30 11/11/24 08:58 Carvedilol 12.5 Mg Tablet PO 02/01/24 17:29 25 mg BIDWM KARY Administration Cephalexin HCl 500 mg 01/03/24 11:00 01/05/24 05:02 Cephalexin 250 Mg Capsule PO 01/07/24 10:59 500 mg Q8HR KARY Administration Dextrose 25 ml 12/30/23 21:05 Dextrose 50%-Water Inj 50 Ml Syringe IV 01/29/24 21:04 Q15MIN PRN BG 50-70 responsive npo pt Dextrose 50 ml 12/30/23 21:05 Dextrose 50%-Water Inj 50 Ml Syringe IV 01/29/24 21:04 Q15MIN PRN BG <50 OR BG <70 & pt unresponsive Diphenhydramine HCl 25 mg 01/03/24 22:21 01/05/24 11:09 Diphenhydramine 25 Mg Capsule PO 02/02/24 22:20 25 mg Q6HR PRN Administration Allergic Symptoms Furosemide 40 mg 01/05/24 14:00 Furosemide Inj 10 Mg/Ml 4ml Vial IVP 02/04/24 13:59 TID KARY Gabapentin 300 mg 01/03/24 21:00 01/04/24 21:19 Gabapentin 300 Mg Capsule PO 02/02/24 20:59 300 mg HS KARY Administration Glucagon 1 mg 12/30/23 21:05 Glucagon Inj 1 Mg Vial IM Q15MIN PRN BG <70, and no IV access Hydralazine HCl 25 mg 12/31/23 09:00 01/05/24 05:02 Hydralazine Hcl 25 Mg Tablet PO 01/30/24 08:59 25 mg TID KARY Administration Hydromorphone HCl 0.75 mg 01/02/24 10:29 01/05/24 11:13 Hydromorphone Inj 2 Mg/Ml Vial IVP 01/07/24 10:25 0.75 mg Q3HR PRN Administration Breakthrough Pain Hydroxyzine HCl 25 mg 01/02/24 11:12 Hydroxyzine Hcl 25 Mg Tablet PO 01/30/24 00:06 HS PRN insomnia Insulin Human Lispro 0 unit 01/02/24 17:00 01/05/24 11:45 Insulin Lispro (Admelog) 1 Unit/0.01 Ml Unit SC 02/01/24 16:59 2 unit AC KARY Administration Protocol Lisinopril 10 mg 01/02/24 13:15 01/05/24 09:00 Lisinopril 2.5 Mg Tablet PO 02/01/24 13:14 10 mg QDAY KARY Administration Metoclopramide HCl 5 mg 01/02/24 20:15 01/05/24 11:44 Metoclopramide Inj 5 Mg/Ml Vial 2 Ml IVP 02/01/24 20:14 5 mg Q6HR KARY Administration Protocol Ondansetron HCl 4 mg 12/30/23 20:52 Ondansetron Inj 2 Mg/Ml Inj 2 Ml IV 01/29/24 20:51 Q6H PRN NAUSEA OR VOMITING Protocol Pantoprazole Sodium 40 mg 01/02/24 09:00 01/05/24 09:00 Pantoprazole Inj 40 Mg Vial IV 02/01/24 08:59 40 mg QDAY KARY Administration Sennosides 1 tab 12/31/23 09:00 01/05/24 09:06 Senna Tablet PO 01/30/24 08:59 Not Given QDAY KARY Protocol Sevelamer Carbonate 800 mg 12/31/23 17:30 01/05/24 11:09 Sevelamer Carbonate 800 Mg Tablet PO 01/30/24 17:29 800 mg TIDWM KARY Administration Zinc Sulfate 220 mg 01/02/24 09:00 01/05/24 08:58 Zinc Sulfate 220 Mg Capsule PO 02/01/24 08:59 220 mg QDAY KARY Administration Plan 48-year-old female with past medical history of type 2 diabetes mellitus (insulin-dependent), hypertension, kidney cancer status post partial nephrectomy, and history of right foot osteomyelitis status post debridement and amputations. Found to be septic with HR 104, WBC elevated, Cr at 3.0. Admitted for CHF and left great toe osteomyelitis work-up and management. Found to have low hemoglobin at 71. GI was consulted, status post EGD, pending colonoscopy once stool becomes clear. Pending dialysis catheter placement. #Suspected GI bleed #Normocytic anemia #Gastritis #Esophagitis #Nonerosive lesion at GE junction #Status post EGD 01/02/24 Ddx: Hemorrhoids or colon cancer Patient suffers from constipation. She has never had a colonoscopy. Denies dizziness or generalized weakness. EGD 01/01 showed gastritis, esophagitis, nonerosive lesions at the GE junction. No bleeding source. Hemrrhoids less likely,but possible colon cancer in setting of renal cell carcinoma hx. 01/03/2024-1 unit packed red blood cells transfused. 01/04- Hemoglobin stable at 7.7. Patient is currently taking GoLytely, stool still not clear for colonoscopy. Stool negative for WBCs. Plan: -Gastroenterology consulted, recommends clear liquid diet with tap water and GoLytely followed by colonoscopy -Patient on GoLytely prep -Clear liquid diet -FOBT, pending -Monitor CBC #Acutely decompensated congestive heart failure, stable #HFpEF EF 60 to 65% Most likely secondary to hypertension Patient presented with shortness of breath,orthopnea,and PND, requiring oxygen. Oxygen requirement is improving. Upper edema-resolved. Lower extremity edema 1+ on left lower extremity. Mild chronic heart failure, prominent vascular congestion confirmed on chest x- ray. Suspect hypertension and obesity led to patient's decompensated heart failure. Cannot rule out cardiorenal in setting of partial nephrectomy leading to possible dysfunction in left kidney. Echo 06/22/2023: EF 60-65%, trace MR, AR, and mild TR. BNP mildly elevated at 165, troponin negative. NYHA class III. Echo: Normal LV size and function. Estimated EF 60-65%. Mild LVH. Diatsolic dysfunction stage 1 Normal RV size and function. Mild MR, TR. There is a small circumferential pericardial effusion. No evidence of cardiac tamponade. Plan: -Lasix 40 mg IV daily increased to 40mg three times daily, per nephrology recc's -Fluid restriction (1.2 L), daily weight checks, Strict I & O -CMP in am -Scheduled for permanent dialysis catheter placement 01/06/24 #CKD stage V #Acute on chronic CKD #Nephrotic syndrome #Renal cell carinoma Elevated creatinine/low GFR currently worsening in setting of nephrotic syndrome, requiring dialysis. Renal ultrasound showed: Right kidney 12.3 x 7.2 x 7.1 cm cortex 2.2 cm. Right kidney 11.8 x 6.2 x 5.7 cm cortex 2.3 cm. No hydronephrosis or renal calculi. Bladder prevoid volume 2 87 cc unable to void. Urine random total protein 382. Urine random creatinine 23. Urine random sodium 96. Creatinine is 3.9, GFR decreased to 13. Considering patient's worsening kidney function, discussion was held with tile machine operator who recommends dialysis. Plan: -Nephrology consulted; recommends dialysis catheter followed by dialysis on 01/06/2024 when IR is available for replacement. -Follow-up renal panel -Avoid nephrotoxic agents #Osteomyelitis, left great toe #History of osteomyelitis, right foot #S/p left 1st metatarsal amputation on 01/01/2024-Post op day 5 Patient presented with pain in the left foot found to have left great toe OM. XR and MRI of the left foot showed osteomyelitis of the proximal and distal phalanges first digit. Distal metatarsal head division and transmetatarsal amputation performed by general surgeon. Blood culture prelim negative x2. Plan: -Infectious disease was consulted; recommends oral antibiotics for a few days (4-5d) after amputation -General surgery consulted; amputated transmetatarsal, Day 5 -Pain: norco 7.5/325 and dilaudid .75 IV push every 3 hours -Wound care Antimicrobials: -Keflex 500 mg every 6 hours (01/01/2024 for total 4-5 days -Doxycycline 100 mg IV BID (12/29-12/31) and Ceftriaxone 2gm daily (12/31/2023- 01/01/24) #B/L Pleural effusion, confirmed on xray-improving Ultrasound-guided thoracentesis showed small bilateral perfusion, no drainage done. Serum LDH is 215. -Consider thoracenthesis if symptoms worsen. #Hypertension Chronic, uncontrolled BP is elevated >150 SBP. Her elevated blood pressure is likely secondary to pain. Plan: -Continue Lisinopril 10mg daily and Coreg 25mg BID WM -Continue Amlodipine 10 mg daily and Hydralazine 25 mg TID oral #Type 2 diabetes mellitus, insulin-dependent (A1c 9.7%-12/31/2023) #Obesity Chronic, uncontrolled Glucose is currently controlled. Patient home lantus 30 units daily. Plan: -SSI lispro -glargine 15units. #Diabetic neuropathy Hx of Diabetic neuropathy. Patient was found drowsy today, hence decreased dosage of gabapentin. ?Gabapentin 300 mg orally daily. #Hypertriglyceridemia Secondary to obesity Triglycerides 156, cholesterol 146, LDL 69, HDL 47 Plan: -Consider adding fenofibrate #Elevated Alkaline phosphatase Possibly 2/2 cancer and possible mets #Polysubstance use Patient has a history of methamphetamine and marijuana use. She states that she uses methamphetamines once weekly and marijuana daily. U tox positive for opiates, thiamine, marijuana. -F/up outpatient #Sepsis -resolved #Hyperkalemia, resolved #Hyperphosphatemia- resolved #Metabolic acidosis, resolved #Mild transaminitis-resolved #Hyperchloremia, resolved #Hypertensive urgency, resolved DVT prophylaxis: Heparin SC GI prophylaxis: Pantoprazole 40 mg PO daily Diet: Clear Liquid Lines: Peripheral IV Code status: Full Code Dispo: On GoLytely prep, pending colonoscopy. Pending dialysis catheter insertion followed by dialysis per nephrology recs. Discussed case with my attending Dr. Cisneros and senior Andres Crump, PGY-3. Thank you, Jennifer Savage, PGY-2 Attending Provider Attestation/Addendum Face to face evaluation was performed by me. I have personally seen and examined the patient. I discussed the assessment and plan with the entire medicine team. I reviewed available medical records, imaging studies, laboratory results. I agree with the above subjective data, objective findings, assessment and plan except as corrected by me or noted below Acute ernela failure Neprhotoic syndrome anasraka foot osteomyelirtis T2DM with hyperglycemia - GI following, colonoscopy s/p surgery- finish po abxs for foot cellulites Nephrology following, plan to initiate dialysis
[2024-01-05 15:30] LABS: Ferritin 203 ng/mL (7.3-270.7); Total Iron Binding Capacity 197 mcg/dL (250-425)
[2024-01-05 15:39] LABS: Iron 195 mcg/dL (50-170); Percent Iron Saturation 98 % (20-55); Unsaturated Iron Binding 2 (225-295)
[2024-01-05 15:47] LABS: Immature Reticulocyte Fraction 30.3 % (3.0-15.9); Reticulocyte % (Auto) 2.5 % (0.5-1.5); Reticulocyte Absolute Auto 65.7 Biln/L (25.0-75.0)
[2024-01-05 15:57] LABS: Path Review Blood Smear Sent to Pathologist
--- NOTE | 2024-01-05 16:29 | PC.SS ---
rounding note: colonoscopy
[2024-01-05 18:54] LABS: HCG,Qualitative Serum Negative
--- NOTE | 2024-01-05 19:59 | SUR.PHASEI ---
1958: Pt. wakes to name then drifts back to sleep, vitals stable, breathing unlabored, no complaint of pain or nausea, no dressing in place, no active bleed noted, report received from Domonique ESTRADA.
--- NOTE | 2024-01-05 20:20 | SUR.PHASEI ---
2020: Pt. AAOx4, vitals stable, breathing unlabored, no complaint of pain or nausea, no dressing in place, pt. passing gas, gave report to Chantell ESTRADA prior to transfer to room 374.
[2024-01-05] MEDS: GABAPENTIN 300 MG CAPSULE PO (21:15)
[2024-01-06] VITALS (32 sets, daily range): BP systolic 136–186; BP diastolic 74–105; PULSE 70–91; RESP 12–94; TEMP 36–37.1; O2SAT 90–96; BMI 40.9
[2024-01-06] MEDS: hydrOXYzine HCL 25 MG TABLET PO (01:38)
[2024-01-06] MEDS: HYDROmorphone INJ 2 MG/ML VIAL 0.75 MG IVP ×4 (04:13→21:08)
[2024-01-06] MEDS: cephALEXin 250 MG CAPSULE 500 MG PO ×2 (05:05→21:08)
[2024-01-06] MEDS: hydrALAZINE HCL 25 MG TABLET PO ×2 (05:05→21:08)
[2024-01-06] MEDS: METOCLOPRAMIDE INJ 5 MG/ML VIAL 2 ML IVP ×2 (05:10→17:44)
[2024-01-06] MEDS: FUROSEMIDE INJ 10 MG/ML 4ML VIAL 40 MG IVP ×2 (05:10→21:10)
[2024-01-06 05:36] LABS: Basophils # (Auto) 0.1 Thou/mm3 (0.0-0.2); Basophils % (Auto) 1 % (0-2.5); Eosinophils # (Auto) 0.1 Thou/mm3 (0.0-0.5); Eosinophils % (Auto) 1 % (0-10); Hematocrit 24.8 % (36.0-46.0); Immature Granulocytes % (Auto) 4 % (0-0); Immature Granulocytes Auto 0.47 Thou/mm3 (0.00-0.00); Lymphocytes # (Auto) 1.4 Thou/mm3 (1.0-4.8); Lymphocytes % (Auto) 11 % (10-50); Mean Corpuscular HGB Conc 33.1 g/dl (31.0-37.0); Mean Corpuscular Hemoglobin 29.7 pg (25.0-35.0); Mean Corpuscular Volume 90 fL (80-100); Monocytes # (Auto) 1.3 Thou/mm3 (0.0-0.8); Monocytes % (Auto) 10 % (0-12); Neutrophils # (Auto) 9.3 Thou/mm3 (1.8-7.7); Neutrophils % (Auto) 74 % (37-80); Nucleated Red Blood Cell % 0 /100 WBC (0); Platelet Count 325 Thou/mm3 (140-440); RDW Standard Deviation 45.4 fL (36.4-46.3); Red Blood Count 2.76 Miln/mm3 (4.00-5.20); White Blood Count 12.7 Thou/mm3 (3.6-11.0)
[2024-01-06 05:37] LABS: Hemoglobin 8.2 g/dL (12.0-16.0)
[2024-01-06 06:28] LABS: Alanine Aminotransferase 83 U/L (10-49); Albumin, Serum 3.7 gm/dL (3.5-5.0); Albumin/Globulin Ratio 1.3 (1.2-2.2); Alkaline Phosphatase 680 U/L (46-116); Anion Gap 10 (7-16); Aspartate Amino Transferase 39 U/L (0-34); BUN/Creatinine Ratio 14 Ratio (12-20); Bilirubin,Total 0.3 mg/dL (0.3-1.2); Blood Urea Nitrogen 50 mg/dL (9-23); Calcium 8.5 mg/dL (8.3-10.6); Calcium (Corrected) 8.7 mg/dL (8.5-10.1); Carbon Dioxide 24.9 mMol/L (20.0-31.0); Chloride 103 mMol/L (98-107); Creatinine (Component) 3.6 mg/dL (0.6-1.3); Estimated Creatinine Clearance 22.8 mL/min (>60); Globulin 2.8 gm/dL (2.3-3.5); Glucose 201 mg/dL (74-106); Osmolality,Calculated 294 (275-295); Potassium 3.6 mMol/L (3.4-5.1); Sodium 138 mMol/L (136-145); Total Protein 6.5 gm/dL (5.7-8.2); eGFR 15 See Note
[2024-01-06 08:22] LABS: INR 1.1 (0.9-1.3); Partial Thromboplastin Time 32.2 Seconds (22.0-36.0); Prothrombin Time 11.8 Seconds (9.0-12.2)
[2024-01-06] MEDS: PANTOPRAZOLE INJ 40 MG VIAL IV (08:24)
--- NOTE | 2024-01-06 09:00 | XR_ITS ---
Ultrasound-guided needle placement right internal jugular vein Permanent tunneled dialysis catheter insertion, percutaneous Fluoroscopy AP chest, portable, single view. Date and time of procedure: January 06, 2024 0941 hours INDICATIONS: Renal failure, need for stat and long-term dialysis Informed consent provided Technique: A timeout was completed verifying correct patient, procedure, site, positioning, and special equipment if applicable. The patient was placed in a dependent position appropriate for dialysis catheter placement based on the vein to be cannulated. The patient'sright neck was prepped and draped in sterile fashion. Maximum Sterile Barrier Technique used including cap, mask, sterile gown, sterile gloves, and sterile full body drape. If ultrasound technique used: sterile gel and sterile probe covers. Hand Hygiene performed using proper scrub, soap and water, or alcohol-based hand rub. 1% lidocaine was used to anesthetize the surrounding skin area The [employer] portable ultrasound apparatus utilized to confirm patency of the right internal jugular vein Utilizing ultrasonographic guidance successful 21-gauge single puncture into the right internal jugular vein Ultrasound images were recorded and stored. Vessel micropuncture was performed with 21-gauge needle. 0.18 wire guide is introduced into the vein. 0.18 wire is introduced into the vena cava under fluoroscopy. Subcutaneous tunnel formed in the upper chest. Permanent tunneled dialysis catheter placed in the subcutaneous tunnel. Dilators were introduced over the J-wire guide. Tunneled dialysis catheter is introduced through a dilator with venous sheath into the superior vena cava under fluoroscopic guidance. The catheter is sutured in place to the skin and a sterile dressing applied. Perfusion to the extremity distal to the point of catheter insertion is checked and found to be adequate Attending radiologist was present for the entire procedure Estimated blood loss2 cc. The patient tolerated the procedure well and there were no complications Impression: Successful ultrasound-guided needle placement right internal jugular vein Successful permanent tunneled dialysis catheter insertion, percutaneous Fluoroscopy 0.7 minute radiation dose 8.23 milligray 1 spot fluoroscopic chest film. AP chest performed at completion procedure demonstrates satisfactory position dialysis catheter. May use dialysis catheter.
--- NOTE | 2024-01-06 09:20 | PD.RESPRO ---
Documentation for date of: 01/06/24 Subjective Subjective Interval history: No acute overnight events. Patient seen and examined at bedside. Patient appears a bit concerned and agitated this morning. She is pending temporary dialysis catheter to be inserted by IR. Continue IV lasix for CHF. Exam Vital Signs Temp Pulse Resp BP Pulse Ox O2 Del Method O2 Flow Rate 98.7 F 83 13 183/84 H 92 L Nasal Cannula 3 01/06/24 09:09 01/06/24 09:09 01/06/24 09:09 01/06/24 09:09 01/06/24 09:09 01/06/24 09:09 01/06/24 09:09 Narrative Exam Constitutional: obese, well-developed, legally blind female. HEENT: NCAT, reactive round pupils b/l, saturating at 94% on NC. Lung: CTAB, no wheezing, no rhonchi, no crackles. Heart: Regular S1S2, no murmurs, gallops, or rubs. Abdomen: Soft, non-tender, Normoactive bowel sounds. Extremities: No cyanosis, clubbing, No upper extremity edema. 1+ nonpitting edema left lower extremity, improving. Wound gauze wrapped around left foot s/p amputation of great toe. Neurologic: Generally alert and oriented to person, place, time. Skin: Warm, dry, no lesions or rashes noted Objective Labs 01/10/24 05:50 01/10/24 05:50 Labs: Laboratory Results - last 24 hr 01/05/24 01/06/24 01/06/24 04:58 05:03 07:38 WBC 12.7 H RBC 2.76 L Hgb 8.2 L Hct 24.8 L MCV 90 MCH 29.7 MCHC 33.1 RDW Std Deviation 45.4 Plt Count 325 Neut % (Auto) 74 Lymph % (Auto) 11 [place] % (Auto) 10 Eos % (Auto) 1 Baso % (Auto) 1 Neut # (Auto) 9.3 H Lymph # (Auto) 1.4 [place] # (Auto) 1.3 H Eos # (Auto) 0.1 Baso # (Auto) 0.1 Immature Gran # (Auto) 0.47 H Absolute Nucleated RBC 0.00 Immature Gran % 4 H Nucleated RBC % 0 Smear Path Review Sent to Pathologist Retic Count (auto) 2.5 H Absolute Retic 65.7 Immature Retic Fraction 30.3 H Retic Hgb Content CHr 30.0 PT 11.8 INR 1.1 APTT 32.2 Sodium 138 Potassium 3.6 Chloride 103 Carbon Dioxide 24.9 Anion Gap 10 BUN 50 H Creatinine 3.6 H Estim Creat Clear Calc 22.8 L eGFR 15 L BUN/Creatinine Ratio 14 Glucose 201 H D Calculated Osmolality 294 Calcium 8.5 Corrected Calcium 8.7 Iron 195 H TIBC 197 L Iron Saturation 98 H Unsat Iron Binding 2 L Ferritin 203 Total Bilirubin 0.3 AST 39 H ALT 83 H Alkaline Phosphatase 680 H D Total Protein 6.5 Albumin 3.7 Globulin 2.8 Albumin/Globulin Ratio 1.3 HCG, Qual Negative Quality Measures Quality Measures none Assessment & Plan Assessment Current Active Medications: Generic Name Dose Route Start Last Admin Trade Name Freq PRN Reason Stop Dose Admin Acetaminophen 650 mg 01/01/24 08:16 01/03/24 13:28 Acetaminophen 325 Mg Tablet PO 01/29/24 20:51 650 mg Q6H PRN Administration MILD PAIN (1-3) OR FEVER > 101 Hydrocodone Bitart/Acetaminophen 1 tab 01/02/24 10:30 01/05/24 23:51 Hydrocodone/Apap 7.5/325 Tablet PO 01/07/24 10:29 1 tab Q6HR PRN Administration PAIN SCALE 4-6 (Moderate Amlodipine Besylate 10 mg 12/31/23 09:00 01/05/24 09:00 Amlodipine Besylate 5 Mg Tablet PO 01/30/24 08:59 10 mg QDAY KARY Administration Ascorbic Acid 500 mg 01/01/24 21:00 01/05/24 21:14 Ascorbic Acid 250 Mg Tablet PO 01/31/24 20:59 500 mg BID KARY Administration Carvedilol 25 mg 01/02/24 17:30 01/05/24 17:30 Carvedilol 12.5 Mg Tablet PO 02/01/24 17:29 Not Given BIDWM KARY Cephalexin HCl 500 mg 01/03/24 11:00 01/06/24 05:05 Cephalexin 250 Mg Capsule PO 01/07/24 10:59 500 mg Q8HR KARY Administration Dextrose 25 ml 12/30/23 21:05 Dextrose 50%-Water Inj 50 Ml Syringe IV 01/29/24 21:04 Q15MIN PRN BG 50-70 responsive npo pt Dextrose 50 ml 12/30/23 21:05 Dextrose 50%-Water Inj 50 Ml Syringe IV 01/29/24 21:04 Q15MIN PRN BG <50 OR BG <70 & pt unresponsive Diphenhydramine HCl 25 mg 01/03/24 22:21 01/05/24 21:15 Diphenhydramine 25 Mg Capsule PO 02/02/24 22:20 25 mg Q6HR PRN Administration Allergic Symptoms Epoetin Arvind 10,000 unit 01/06/24 14:00 Epoetin Arvind-Epbx Inj 10,000 Unit/Ml Vial (Esrd) SC 01/06/24 14:01 X1 ONE Furosemide 40 mg 01/05/24 14:00 01/06/24 05:10 Furosemide Inj 10 Mg/Ml 4ml Vial IVP 02/04/24 13:59 40 mg TID KARY Administration Gabapentin 300 mg 01/03/24 21:00 01/05/24 21:15 Gabapentin 300 Mg Capsule PO 02/02/24 20:59 300 mg HS KARY Administration Glucagon 1 mg 12/30/23 21:05 Glucagon Inj 1 Mg Vial IM Q15MIN PRN BG <70, and no IV access Hydralazine HCl 25 mg 12/31/23 09:00 01/06/24 05:05 Hydralazine Hcl 25 Mg Tablet PO 01/30/24 08:59 25 mg TID KARY Administration Hydromorphone HCl 0.75 mg 01/02/24 10:29 01/06/24 04:13 Hydromorphone Inj 2 Mg/Ml Vial IVP 01/07/24 10:25 0.75 mg Q3HR PRN Administration Breakthrough Pain Hydroxyzine HCl 25 mg 01/02/24 11:12 01/06/24 01:38 Hydroxyzine Hcl 25 Mg Tablet PO 01/30/24 00:06 25 mg HS PRN Administration insomnia Insulin Human Lispro 0 unit 01/06/24 06:00 01/06/24 05:49 Insulin Lispro (Admelog) 1 Unit/0.01 Ml Unit SC 02/05/24 05:59 Not Given Q6HR KARY Protocol Lisinopril 10 mg 01/02/24 13:15 01/05/24 09:00 Lisinopril 2.5 Mg Tablet PO 02/01/24 13:14 10 mg QDAY KARY Administration Metoclopramide HCl 5 mg 01/02/24 20:15 01/06/24 05:10 Metoclopramide Inj 5 Mg/Ml Vial 2 Ml IVP 02/01/24 20:14 5 mg Q6HR KARY Administration Protocol Ondansetron HCl 4 mg 12/30/23 20:52 Ondansetron Inj 2 Mg/Ml Inj 2 Ml IV 01/29/24 20:51 Q6H PRN NAUSEA OR VOMITING Protocol Pantoprazole Sodium 40 mg 01/02/24 09:00 01/06/24 08:24 Pantoprazole Inj 40 Mg Vial IV 02/01/24 08:59 40 mg QDAY KARY Administration Sennosides 1 tab 12/31/23 09:00 01/05/24 09:06 Senna Tablet PO 01/30/24 08:59 Not Given QDAY KARY Protocol Sevelamer Carbonate 800 mg 12/31/23 17:30 01/05/24 18:53 Sevelamer Carbonate 800 Mg Tablet PO 01/30/24 17:29 800 mg TIDWM KARY Administration Zinc Sulfate 220 mg 01/02/24 09:00 01/05/24 08:58 Zinc Sulfate 220 Mg Capsule PO 02/01/24 08:59 220 mg QDAY KARY Administration Plan 48-year-old female with past medical history of type 2 diabetes mellitus (insulin-dependent), hypertension, kidney cancer status post partial nephrectomy, and history of right foot osteomyelitis status post debridement and amputations. Found to be septic with HR 104, WBC elevated, Cr at 3.0. Admitted for CHF and left great toe osteomyelitis work-up and management. Found to have low hemoglobin at 7.1. On 01/03/2024, 1 unit packed red blood cells transfused. GI was consulted, status post EGD, s/p colonoscopy showed hemorrhoids and diverticulosis, no acute bleeding. Dialysis catheter placement today. #Diverticulosis #Hemorrhoids #Gastritis #Esophagitis #Nonerosive lesion at GE junction #Normocytic anemia #Status post EGD 01/02/24 #S/p colonoscopy 01/05/2024 Patient suffers from constipation. She has never had a colonoscopy. Denies dizziness or generalized weakness. EGD 01/01 showed gastritis, esophagitis, nonerosive lesions at the GE junction.No bleeding source. Colonoscopy 03/06/2023 showed hemorrhoids and diverticulosis in the sigmoid and the descending colon. No bleeding. Cannot rule out colon cancer in setting renal cell carcinoma hx. Stool negative for WBCs. Ferritin normal limits. Plan: -Gastroenterology consulted, recommends high-fiber diet and outpatient follow-up with gastroenterology clinic in 2 weeks. -FOBT, pending -Monitor CBC #Acutely decompensated congestive heart failure, stable #HFpEF EF 60 to 65% Most likely secondary to hypertension Patient presented with shortness of breath,orthopnea,and PND, requiring oxygen. Oxygen requirement is stable at 4L/min. Lower extremity edema 1+ on left lower extremity. Mild chronic heart failure, prominent vascular congestion confirmed on chest x-ray. Suspect hypertension and obesity led to patient's decompensated heart failure. Cannot rule out cardiorenal in setting of partial nephrectomy leading to possible dysfunction in left kidney. Echo 06/22/2023: EF 60-65%, trace MR, AR, and mild TR. BNP mildly elevated at 165, troponin negative. NYHA class III. Echo: Normal LV size and function. Estimated EF 60-65%. Mild LVH. Diatsolic dysfunction stage 1 Normal RV size and function. Mild MR, TR. There is a small circumferential pericardial effusion. No evidence of cardiac tamponade. Plan: -Lasix 40 mg IV daily increased to 40mg three times daily, per nephrology recc's -Fluid restriction (1.2 L), daily weight checks, Strict I & O -CMP in am #CKD stage V #Acute on chronic CKD #Nephrotic syndrome #Renal cell carinoma Elevated creatinine/low GFR currently worsening in setting of nephrotic syndrome, required dialysis. Renal ultrasound showed: Right kidney 12.3 x 7.2 x 7.1 cm cortex 2.2 cm. Right kidney 11.8 x 6.2 x 5.7 cm cortex 2.3 cm. No hydronephrosis or renal calculi. Bladder prevoid volume 2 87 cc unable to void. Urine random total protein 382. Urine random creatinine 23. Urine random sodium 96. Creatinine improved from 3.9 to 3.6, GFR 15. Considering patient's worsening kidney function, patient had first session of dialysis upon IR dialysis catheter placement. Plan: -Nephrology consulted; recommends dialysis. -Follow-up renal panel -Avoid nephrotoxic agents #Osteomyelitis, left great toe #History of osteomyelitis, right foot #S/p left 1st metatarsal amputation on 01/01/2024-Post op day 6 Patient presented with pain in the left foot found to have left great toe OM. XR and MRI of the left foot showed osteomyelitis of the proximal and distal phalanges first digit. Distal metatarsal head division and transmetatarsal amputation performed by general surgeon. Blood culture prelim negative x2. Plan: -Infectious disease was consulted; recommends oral antibiotics for a few days (4-5d) after amputation -General surgery consulted; amputated transmetatarsal, Day 6 -Pain: norco 7.5/325 and dilaudid .75 IV push every 3 hours -Wound care Antimicrobials: -Keflex 500 mg every 6 hours (01/03/2024- for total 5 days, anticipated end 01/07/2024. -Doxycycline 100 mg IV BID (12/29-12/31) and Ceftriaxone 2gm daily (12/31/2023-01/01/24) #B/L Pleural effusion, confirmed on xray-improving Ultrasound-guided thoracentesis showed small bilateral perfusion, no drainage done. Serum LDH is 215. -Consider thoracenthesis if symptoms worsen. #Hypertension Chronic, uncontrolled BP is elevated >150 SBP. Her elevated blood pressure is likely secondary to pain. Plan: -Continue Lisinopril 10mg daily and Coreg 25mg BID WM -Continue Amlodipine 10 mg daily and Hydralazine 25 mg TID oral #Type 2 diabetes mellitus, insulin-dependent (A1c 9.7%-12/31/2023) #Obesity Chronic, uncontrolled Glucose is currently controlled. Patient home lantus 30 units daily. Plan: -SSI lispro -glargine 15units. #Diabetic neuropathy Hx of Diabetic neuropathy. Patient was found drowsy today, hence decreased dosage of gabapentin. ?Gabapentin 300 mg orally daily. #Hypertriglyceridemia Secondary to obesity Triglycerides 156, cholesterol 146, LDL 69, HDL 47 Plan: -Consider adding fenofibrate #Elevated Alkaline phosphatase Possibly 2/2 cancer and possible mets #Polysubstance use Patient has a history of methamphetamine and marijuana use. She states that she uses methamphetamines once weekly and marijuana daily. U tox positive for opiates, thiamine, marijuana. -F/up outpatient #Sepsis -resolved #Hyperkalemia, resolved #Hyperphosphatemia- resolved #Metabolic acidosis, resolved #Mild transaminitis-resolved #Hyperchloremia, resolved #Hypertensive urgency, resolved DVT prophylaxis: Heparin SC GI prophylaxis: Pantoprazole 40 mg PO daily Diet: Clear Liquid Lines: Peripheral IV Code status: Full Code Dispo: Dialysis cath placed today 01/06/2024, initial dialysis sessions to be continued inpatient. Discussed case with my attending Dr. Potter and senior Andres Crump, PGY-3. Thank you, Jennifer Savage, PGY-2 Attending Provider Attestation/Addendum Face to face evaluation was performed by me. I have personally seen and examined the patient. I discussed the assessment and plan with the entire medicine team. I reviewed available medical records, imaging studies, laboratory results. I agree with the above subjective data, objective findings, assessment and plan except as corrected by me or noted below Acute ernela failure Neprhotoic syndrome anasraka foot osteomyelirtis T2DM with hyperglycemia - GI workup- EGD and colonoscopyxz s/p surgery- finish po abxs for foot cellulites Nephrology following, plan to initiate dialysis - IR to lace tunneled HD catheter for that
[2024-01-06] MEDS: HEPARIN SOD LOCK SYR 100 UNIT/ML 500 UNIT STFIELD (10:23)
[2024-01-06] MEDS: fentaNYL CIT INJ 50 mCg/ML AMP 2ML 100 MCG IVP (10:24)
[2024-01-06] MEDS: LIDOCAINE INJ PF 1% 30 ML VIAL 12 ML INFL (10:25)
[2024-01-06] MEDS: HEPARIN SOD INJ 1000 UNIT/ML VIAL 3300 UNIT INDWELLCAT (10:55)
--- NOTE | 2024-01-06 11:05 | PC.NURSE ---
hand off report given to angelo gifford. patient alert and oriented. dressing is clean, dry , and intact.
[2024-01-06] MEDS: DiphenhydrAMINE 25 MG CAPSULE PO ×2 (12:20→19:00)
--- NOTE | 2024-01-06 13:30 | ESPR_ITS ---
Documentation for date of: 01/06/24 Subjective Subjective Interval history: Ms. Costa is a 48 y/o F with PMHx significant for type 2 diabetes mellitus (insulin-dependent), hypertension, kidney cancer status post partial nephrectomy, and history of right foot osteomyelitis status post debridement and amputations now presents with shortness of breath and left great toe pain. Patient states that she has been short of breath for last couple of days, endorsing orthopnea and PND with associated bilateral lower extremity edema, bilateral upper extremity edema, and swelling around the eyes and tongue. She denies chest pain, pressure, and tightness. Also reports pain in left great toe initially with purulent drainage, now with serosanguineous material on bed sheets in ED. Denies fever and chills but endorses sweats. Otherwise denies dysuria, hematuria, or foul-smelling urine. Labs at time of admission showed BUN 48 (baseline 19?22), [employer] 3.0 (baseline 1.5), GFR 18. Chest x-ray showed heart failure pattern, bibasilar pneumonia, moderate left and large right pleural effusions. X-ray of left foot showed significant osteo of distal phalanx of first digit. Patient admitted for CHF exacerbation and left toe osteomyelitis. Nephrology was consulted due to KIM on CKD. Patient seen in ED resting in bed. Patient had bilateral lower extremity edema, worse than usual per patient. Lungs clear to auscultation, poor lung sounds due to body habitus. Labs at time of exam showed sodium 136, potassium 5.5, bicarb 16.3, BUN 51, creatinine 3.0, eGFR 18. Plan for additional diuretics, suspect cardiorenal syndrome due to fluid overload state. 12/31: Patient seen resting comfortably in bed. Patient has lower extremity edema, mildly improved. Lungs clear to auscultation, poor lung sounds due to body habitus. Sodium 138, potassium 4.3, bicarb 20.1, BUN 55, creatinine 2.4, eGFR 16. Plan for amputation of left great toe later today. 01/05/2024 patient currently seen in medical floor. She is blind from diabetic retinopathy. She has severe progressive diabetic nephropathy with nephrotic range proteinuria and nephrotic syndrome with significant anasarca. On diuretics. GFR declining. Had a long conversation with patient regarding renal replacement therapy as her GFR is less than 15 and she agreed for dialysis if indicated. Currently on diuretics. Cannot give any fluids due to anasarca. Labs, medications reviewed. Will proceed with dialysis in a.m. Patient complaining of significant edema. Will increase the Lasix to 3 times daily. Plan of care discussed with primary team 01/05: Patient seen and examined at bedside. Patient appeared agitated, complained of generalized feeling of malaise. Patient given 1 mg Ativan IV push. Patient still shows anasarca on exam. 1.2 L in, 2.0 L out over past 24 hours. Labs showed some improvement: BUN 50, creatinine 2.6, eGFR 15. Plan for hemodialysis today. Exam Vital Signs Temp Pulse Resp BP Pulse Ox O2 Del Method O2 Flow Rate 97.2 F 87 18 174/99 H 90 L Humidified Nasal Cannula 3 01/06/24 12:00 01/06/24 12:00 01/06/24 12:00 01/06/24 12:00 01/06/24 12:00 01/06/24 12:00 01/06/24 12:00 Narrative Exam GENERAL APPEARANCE: Patient seems to be comfortable, adequately hydrated and nourished. HEENT: Patient blind CARDIOVASCULAR: Heart regular, no murmurs LUNGS/CHEST: Chest clear to auscultation. No rales, rhonchi, wheezing ABDOMEN: Soft, nontender, nondistended. No masses. Normal bowel sounds. EXTREMITIES: 2+ edema in the lower extremities SKIN: Right 2 toes missing. Left great toe amputated MUSCULOSKELETAL: In bed NEUROLOGICAL : No neurological deficits Objective Labs 01/06/24 05:03 01/06/24 05:03 Labs: Laboratory Results - last 24 hr 01/05/24 01/06/24 01/06/24 04:58 05:03 07:38 WBC 12.7 H RBC 2.76 L Hgb 8.2 L Hct 24.8 L MCV 90 MCH 29.7 MCHC 33.1 RDW Std Deviation 45.4 Plt Count 325 Neut % (Auto) 74 Lymph % (Auto) 11 [place] % (Auto) 10 Eos % (Auto) 1 Baso % (Auto) 1 Neut # (Auto) 9.3 H Lymph # (Auto) 1.4 [place] # (Auto) 1.3 H Eos # (Auto) 0.1 Baso # (Auto) 0.1 Immature Gran # (Auto) 0.47 H Absolute Nucleated RBC 0.00 Immature Gran % 4 H Nucleated RBC % 0 Smear Path Review Sent to Pathologist Retic Count (auto) 2.5 H Absolute Retic 65.7 Immature Retic Fraction 30.3 H Retic Hgb Content CHr 30.0 PT 11.8 INR 1.1 APTT 32.2 Sodium 138 Potassium 3.6 Chloride 103 Carbon Dioxide 24.9 Anion Gap 10 BUN 50 H Creatinine 3.6 H Estim Creat Clear Calc 22.8 L eGFR 15 L BUN/Creatinine Ratio 14 Glucose 201 H D Calculated Osmolality 294 Calcium 8.5 Corrected Calcium 8.7 Iron 195 H TIBC 197 L Iron Saturation 98 H Unsat Iron Binding 2 L Ferritin 203 Total Bilirubin 0.3 AST 39 H ALT 83 H Alkaline Phosphatase 680 H D Total Protein 6.5 Albumin 3.7 Globulin 2.8 Albumin/Globulin Ratio 1.3 HCG, Qual Negative Quality Measures Quality Measures VTE prophylaxis Assessment & Plan Assessment Current Active Medications: Generic Name Dose Route Start Last Admin Trade Name Freq PRN Reason Stop Dose Admin Acetaminophen 650 mg 01/01/24 08:16 01/03/24 13:28 Acetaminophen 325 Mg Tablet PO 01/29/24 20:51 650 mg Q6H PRN Administration MILD PAIN (1-3) OR FEVER > 101 Hydrocodone Bitart/Acetaminophen 1 tab 01/02/24 10:30 01/05/24 23:51 Hydrocodone/Apap 7.5/325 Tablet PO 01/07/24 10:29 1 tab Q6HR PRN Administration PAIN SCALE 4-6 (Moderate Amlodipine Besylate 10 mg 12/31/23 09:00 01/05/24 09:00 Amlodipine Besylate 5 Mg Tablet PO 01/30/24 08:59 10 mg QDAY KARY Administration Ascorbic Acid 500 mg 01/01/24 21:00 01/05/24 21:14 Ascorbic Acid 250 Mg Tablet PO 01/31/24 20:59 500 mg BID KARY Administration Carvedilol 25 mg 01/02/24 17:30 01/05/24 17:30 Carvedilol 12.5 Mg Tablet PO 02/01/24 17:29 Not Given BIDWM KARY Cephalexin HCl 500 mg 01/03/24 11:00 01/06/24 05:05 Cephalexin 250 Mg Capsule PO 01/07/24 10:59 500 mg Q8HR KARY Administration Dextrose 25 ml 12/30/23 21:05 Dextrose 50%-Water Inj 50 Ml Syringe IV 01/29/24 21:04 Q15MIN PRN BG 50-70 responsive npo pt Dextrose 50 ml 12/30/23 21:05 Dextrose 50%-Water Inj 50 Ml Syringe IV 01/29/24 21:04 Q15MIN PRN BG <50 OR BG <70 & pt unresponsive Diphenhydramine HCl 25 mg 01/03/24 22:21 01/06/24 12:20 Diphenhydramine 25 Mg Capsule PO 02/02/24 22:20 25 mg Q6HR PRN Administration Allergic Symptoms Epoetin Arvind 10,000 unit 01/06/24 14:00 Epoetin Arvind-Epbx Inj 10,000 Unit/Ml Vial (Esrd) SC 01/06/24 14:01 X1 ONE Furosemide 40 mg 01/05/24 14:00 01/06/24 05:10 Furosemide Inj 10 Mg/Ml 4ml Vial IVP 02/04/24 13:59 40 mg TID KARY Administration Gabapentin 300 mg 01/03/24 21:00 01/05/24 21:15 Gabapentin 300 Mg Capsule PO 02/02/24 20:59 300 mg HS KARY Administration Glucagon 1 mg 12/30/23 21:05 Glucagon Inj 1 Mg Vial IM Q15MIN PRN BG <70, and no IV access Hydralazine HCl 25 mg 12/31/23 09:00 01/06/24 05:05 Hydralazine Hcl 25 Mg Tablet PO 01/30/24 08:59 25 mg TID KARY Administration Hydromorphone HCl 0.75 mg 01/02/24 10:29 01/06/24 12:20 Hydromorphone Inj 2 Mg/Ml Vial IVP 01/07/24 10:25 0.75 mg Q3HR PRN Administration Breakthrough Pain Hydroxyzine HCl 25 mg 01/02/24 11:12 01/06/24 01:38 Hydroxyzine Hcl 25 Mg Tablet PO 01/30/24 00:06 25 mg HS PRN Administration insomnia Insulin Human Lispro 0 unit 01/06/24 06:00 01/06/24 05:49 Insulin Lispro (Admelog) 1 Unit/0.01 Ml Unit SC 02/05/24 05:59 Not Given Q6HR [facility] Protocol Lisinopril 10 mg 01/02/24 13:15 01/05/24 09:00 Lisinopril 2.5 Mg Tablet PO 02/01/24 13:14 10 mg QDAY KARY Administration Metoclopramide HCl 5 mg 01/02/24 20:15 01/06/24 05:10 Metoclopramide Inj 5 Mg/Ml Vial 2 Ml IVP 02/01/24 20:14 5 mg Q6HR KARY Administration Protocol Ondansetron HCl 4 mg 12/30/23 20:52 Ondansetron Inj 2 Mg/Ml Inj 2 Ml IV 01/29/24 20:51 Q6H PRN NAUSEA OR VOMITING Protocol Pantoprazole Sodium 40 mg 01/07/24 09:00 Pantoprazole 40 Mg Tablet PO 02/06/24 08:59 QDAY KARY Sennosides 1 tab 12/31/23 09:00 01/05/24 09:06 Senna Tablet PO 01/30/24 08:59 Not Given QDAY [facility] Protocol Sevelamer Carbonate 800 mg 12/31/23 17:30 01/05/24 18:53 Sevelamer Carbonate 800 Mg Tablet PO 01/30/24 17:29 800 mg TIDWM KARY Administration Zinc Sulfate 220 mg 01/02/24 09:00 01/05/24 08:58 Zinc Sulfate 220 Mg Capsule PO 02/01/24 08:59 220 mg QDAY KARY Administration Plan Tati Costa is a 48-year-old female with past medical history of type 2 diabetes mellitus (insulin-dependent), hypertension, kidney cancer status post partial nephrectomy, and history of right foot osteomyelitis status post debridement and amputations admitted for CHF and left great toe osteomyelitis work-up and management. #Acute on chronic kidney injury #CKD stage IV #Nephrotic syndrome Patient presented with poor kidney function, BUN, creatinine elevated above baseline. Patient has history of CHF, appears to be in CHF exacerbation clinically based on reported symptoms of orthopnea, exam findings of bilateral lower extremity edema increased compared to baseline per patient. Renal ultrasound showed no hydronephrosis or renal stones. BLE mildly improved with diuresis. Urine protein/creatinine 16.6 g Had a long conversation with patient regarding progressive diabetic nephropathy, proteinuria, anasarca and significant fluid overload. On diuretics. Worsening renal function. GFR less than 15. Patient agreed for dialysis. Will plan on Friday. IR closed Friday. Plan: -Renally dose medications -Avoid nephrotoxic meds -Follow daily labs -Diuretics: Continue with Lasix daily -Hemodialysis today # ?New onset CHF//diabetic nephropathy #Anasarca #Osteomyelitis, left great toe #History of osteomyelitis, right foot #Type 2 diabetes mellitus, insulin-dependent #Hypertension #Hypertensive urgency Plan as per primary team Thank you for allowing me to participate in the care of this patient. Plan of care discussed with attending Dr. Moreland. Lane Kenney MD PGY-1 Attending Provider Attestation/Addendum Patient seen and examined with resident physician Dr. Kenney. Note reviewed, agree with findings and recommendations.. Patient agreed for dialysis. IJ PermCath placed by Dr. Byrnes. Patient currently seen on dialysis. Tolerating dialysis without any problems. Hemodialysis for 2 hours, 2K, ultrafiltration 2L, Epogen 6000, no heparin ordered. Plan of care discussed with the dialysis nurse. Please see dialysis flowsheet for further details. Outpatient dialysis will be arranged. TB, hepatitis Profile ordered. Next dialysis scheduled for tomorrow
--- NOTE | 2024-01-06 15:32 | ESPR_ITS ---
Documentation for date of: 01/06/24 Subjective Subjective Interval history: Patient evaluated Hemoglobin hematocrit 8.2 and 24.8 Colonoscopy showed large internal hemorrhoids Diverticulosis: Exam Vital Signs Temp Pulse Resp BP Pulse Ox O2 Del Method O2 Flow Rate 97.5 F 84 18 181/105 H 94 L Humidified Nasal Cannula 4 01/06/24 13:30 01/06/24 15:30 01/06/24 15:12 01/06/24 15:30 01/06/24 13:30 01/06/24 12:00 01/06/24 13:30 Objective Labs 01/06/24 05:03 01/06/24 05:03 Labs: Laboratory Results - last 24 hr 01/05/24 01/06/24 01/06/24 04:58 05:03 07:38 WBC 12.7 H RBC 2.76 L Hgb 8.2 L Hct 24.8 L MCV 90 MCH 29.7 MCHC 33.1 RDW Std Deviation 45.4 Plt Count 325 Neut % (Auto) 74 Lymph % (Auto) 11 [place] % (Auto) 10 Eos % (Auto) 1 Baso % (Auto) 1 Neut # (Auto) 9.3 H Lymph # (Auto) 1.4 [place] # (Auto) 1.3 H Eos # (Auto) 0.1 Baso # (Auto) 0.1 Immature Gran # (Auto) 0.47 H Absolute Nucleated RBC 0.00 Immature Gran % 4 H Nucleated RBC % 0 Smear Path Review Sent to Pathologist Retic Count (auto) 2.5 H Absolute Retic 65.7 Immature Retic Fraction 30.3 H Retic Hgb Content CHr 30.0 PT 11.8 INR 1.1 APTT 32.2 Sodium 138 Potassium 3.6 Chloride 103 Carbon Dioxide 24.9 Anion Gap 10 BUN 50 H Creatinine 3.6 H Estim Creat Clear Calc 22.8 L eGFR 15 L BUN/Creatinine Ratio 14 Glucose 201 H D Calculated Osmolality 294 Calcium 8.5 Corrected Calcium 8.7 Iron 195 H Iron Saturation 98 H Unsat Iron Binding 2 L Total Bilirubin 0.3 AST 39 H ALT 83 H Alkaline Phosphatase 680 H D Total Protein 6.5 Albumin 3.7 Globulin 2.8 Albumin/Globulin Ratio 1.3 HCG, Qual Negative Impressions Impression: # Acute posthemorrhagic anemia # Diverticulosis: Left colon # Hemorrhagic gastritis Continue to monitor CBC Assessment & Plan A&P 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 f/u with outpt primary, I can not see in clinic. backlog too great. 3 mo in most cases Time Spent With Patient Time: Total time spent is greater than 50% in coordination of care (as documented) at patient's floor/unit and/or counseling patient:
--- NOTE | 2024-01-06 15:38 | PC.SS ---
Addendum entered by Virgie Contreras 01/06/24 15:45: SS has faxed patient's 1st dialysis session. TB skin test is still pending. Original Note: Pt is new dialysis pt with Dr. Moreland. SS has spoken to Shilpi from [facility] who is aware pt has out of [facility] and she explained Medical would not be barrier. SS has faxed inquiry to [facility] upon Carter's request. SS has scheduled pt an appointment with Resident Physician, Dr. Arreguin at [facility] for January 09, 2024 at 9:30am.
[2024-01-06] MEDS: HEPARIN SOD INJ 1000 UNIT/ML VIAL 10 ML 3300 UNIT INDWELLCAT (16:05)
--- NOTE | 2024-01-06 16:26 | PC.NURSE ---
called pharmacy to bring PPD
[2024-01-06] MEDS: TUBERCULIN PPD INJ 5 UNIT/0.1 ML DOSE ID (16:52)
[2024-01-06] MEDS: EPOETIN ALFA-EPBX INJ 10,000 UNIT/ML VIAL (ESRD) 10000 UNIT SC (16:53)
[2024-01-06] MEDS: Lisinopril 2.5 MG TABLET 10 MG PO (17:43)
[2024-01-06] MEDS: amLODIPine BESYLATE 5 MG TABLET 10 MG PO (17:44)
[2024-01-06] MEDS: ZINC SULFATE 220 MG CAPSULE PO (17:45)
[2024-01-06] MEDS: INSULIN LISPRO (AdmeLOG) 1 UNIT/0.01 ML UNIT SC (17:47)
[2024-01-06] MEDS: carVEDILOL 12.5 MG TABLET 25 MG PO (17:49)
[2024-01-06] MEDS: SEVELAMER CARBONATE 800 MG TABLET PO (17:50)
[2024-01-06] MEDS: ASCORBIC ACID 250 MG TABLET 500 MG PO (20:02)
[2024-01-06] MEDS: GABAPENTIN 300 MG CAPSULE PO (20:02)
[2024-01-07] VITALS (31 sets, daily range): BP systolic 133–184; BP diastolic 66–100; PULSE 74–85; RESP 16–18; TEMP 36.1–37.2; O2SAT 92–97; BMI 40.9
[2024-01-07] MEDS: HYDROmorphone INJ 2 MG/ML VIAL 0.75 MG IVP ×5 (00:20→22:00)
[2024-01-07] MEDS: INSULIN LISPRO (AdmeLOG) 1 UNIT/0.01 ML UNIT SC ×3 (00:24→17:19)
[2024-01-07] MEDS: METOCLOPRAMIDE INJ 5 MG/ML VIAL 2 ML IVP ×5 (00:25→23:55)
--- NOTE | 2024-01-07 03:16 | PC.NURSE ---
[facility] downtime occurred on 01/07/24 from 0200 to 0300.
[2024-01-07] MEDS: DiphenhydrAMINE 25 MG CAPSULE PO ×3 (03:29→23:55)
[2024-01-07] MEDS: HYDROcodone/APAP 7.5/325 TABLET 1 TAB PO ×2 (03:29→09:39)
[2024-01-07 05:45] LABS: Basophils # (Auto) 0.1 Thou/mm3 (0.0-0.2); Basophils % (Auto) 1 % (0-2.5); Eosinophils # (Auto) 0.1 Thou/mm3 (0.0-0.5); Eosinophils % (Auto) 1 % (0-10); Hematocrit 26.9 % (36.0-46.0); Immature Granulocytes % (Auto) 4 % (0-0); Immature Granulocytes Auto 0.38 Thou/mm3 (0.00-0.00); Lymphocytes # (Auto) 1.2 Thou/mm3 (1.0-4.8); Lymphocytes % (Auto) 11 % (10-50); Mean Corpuscular Hemoglobin 29.2 pg (25.0-35.0); Mean Corpuscular Volume 91 fL (80-100); Monocytes # (Auto) 1.3 Thou/mm3 (0.0-0.8); Monocytes % (Auto) 12 % (0-12); Neutrophils # (Auto) 7.7 Thou/mm3 (1.8-7.7); Neutrophils % (Auto) 72 % (37-80); Nucleated Red Blood Cell % 0 /100 WBC (0); Platelet Count 306 Thou/mm3 (140-440); Red Blood Count 2.95 Miln/mm3 (4.00-5.20); White Blood Count 10.7 Thou/mm3 (3.6-11.0)
[2024-01-07] MEDS: FUROSEMIDE INJ 10 MG/ML 4ML VIAL 40 MG IVP ×3 (05:46→21:12)
[2024-01-07] MEDS: hydrALAZINE HCL 25 MG TABLET PO ×3 (05:46→21:11)
[2024-01-07] MEDS: cephALEXin 250 MG CAPSULE 500 MG PO (05:47)
[2024-01-07 05:49] LABS: Hemoglobin 8.6 g/dL (12.0-16.0)
[2024-01-07 06:13] LABS: Alanine Aminotransferase 57 U/L (10-49); Albumin, Serum 3.8 gm/dL (3.5-5.0); Albumin/Globulin Ratio 1.3 (1.2-2.2); Alkaline Phosphatase 600 U/L (46-116); Anion Gap 8 (7-16); Aspartate Amino Transferase 15 U/L (0-34); BUN/Creatinine Ratio 12 Ratio (12-20); Bilirubin,Total 0.4 mg/dL (0.3-1.2); Blood Urea Nitrogen 36 mg/dL (9-23); Calcium 8.7 mg/dL (8.3-10.6); Calcium (Corrected) 8.9 mg/dL (8.5-10.1); Carbon Dioxide 27.6 mMol/L (20.0-31.0); Chloride 103 mMol/L (98-107); Creatinine (Component) 2.9 mg/dL (0.6-1.3); Estimated Creatinine Clearance 28.4 mL/min (>60); Glucose 178 mg/dL (74-106); Osmolality,Calculated 289 (275-295); Potassium 3.5 mMol/L (3.4-5.1); Sodium 139 mMol/L (136-145); Total Protein 6.8 gm/dL (5.7-8.2); eGFR 19 See Note
--- NOTE | 2024-01-07 08:18 | PC.NURSE ---
MD ELLIS AT BEDSIDE W/ ORDER TO INCREASE TX TIME TO 3HRS AND UF GOAL TO 3L TOLERATED, ORDERS CARRIED OUT. WILL CONT. TO MONITOR
--- NOTE | 2024-01-07 09:26 | ESPR_ITS ---
Documentation for date of: 01/07/24 Subjective Subjective Interval history: Ms. Costa is a 48 y/o F with PMHx significant for type 2 diabetes mellitus (insulin-dependent), hypertension, kidney cancer status post partial nephrectomy, and history of right foot osteomyelitis status post debridement and amputations now presents with shortness of breath and left great toe pain. Patient states that she has been short of breath for last couple of days, endorsing orthopnea and PND with associated bilateral lower extremity edema, bilateral upper extremity edema, and swelling around the eyes and tongue. She denies chest pain, pressure, and tightness. Also reports pain in left great toe initially with purulent drainage, now with serosanguineous material on bed sheets in ED. Denies fever and chills but endorses sweats. Otherwise denies dysuria, hematuria, or foul-smelling urine. Labs at time of admission showed BUN 48 (baseline 19?22), [place]im [place] 3.0 (baseline 1.5), GFR 18. Chest x-ray showed heart failure pattern, bibasilar pneumonia, moderate left and large right pleural effusions. X-ray of left foot showed significant osteo of distal phalanx of first digit. Patient admitted for CHF exacerbation and left toe osteomyelitis. Nephrology was consulted due to KIM on CKD. Patient seen in ED resting in bed. Patient had bilateral lower extremity edema, worse than usual per patient. Lungs clear to auscultation, poor lung sounds due to body habitus. Labs at time of exam showed sodium 136, potassium 5.5, bicarb 16.3, BUN 51, creatinine 3.0, eGFR 18. Plan for additional diuretics, suspect cardiorenal syndrome due to fluid overload state. 12/31: Patient seen resting comfortably in bed. Patient has lower extremity edema, mildly improved. Lungs clear to auscultation, poor lung sounds due to body habitus. Sodium 138, potassium 4.3, bicarb 20.1, BUN 55, creatinine 2.4, eGFR 16. Plan for amputation of left great toe later today. 01/05/2024 patient currently seen in medical floor. She is blind from diabetic retinopathy. She has severe progressive diabetic nephropathy with nephrotic range proteinuria and nephrotic syndrome with significant anasarca. On diuretics. GFR declining. Had a long conversation with patient regarding renal replacement therapy as her GFR is less than 15 and she agreed for dialysis if indicated. Currently on diuretics. Cannot give any fluids due to anasarca. Labs, medications reviewed. Will proceed with dialysis in a.m. Patient complaining of significant edema. Will increase the Lasix to 3 times daily. Plan of care discussed with primary team 01/05: Patient seen and examined at bedside. Patient appeared agitated, complained of generalized feeling of malaise. Patient given 1 mg Ativan IV push. Patient still shows anasarca on exam. 1.2 L in, 2.0 L out over past 24 hours. Labs showed some improvement: BUN 50, creatinine 2.6, eGFR 15. Plan for hemodialysis today. 01/06: Patient seen and examined during dialysis. Patient is resting comfortably, denies anxiety, chest pain, shortness of breath. 0.7 L in, 4.1 L out over past 24 hours labs continue to improve: BUN 36, creatinine 2.9, eGFR 19. Exam Vital Signs Temp Pulse Resp BP Pulse Ox O2 Del Method O2 Flow Rate 98.0 F 79 18 173/93 H 96 Nasal Cannula 4 01/07/24 07:51 01/07/24 09:15 01/07/24 07:51 01/07/24 09:15 01/07/24 07:51 01/07/24 07:40 01/07/24 07:51 Narrative Exam GENERAL APPEARANCE: Patient seems to be comfortable, adequately hydrated and nourished. HEENT: Patient blind CARDIOVASCULAR: Heart regular, no murmurs LUNGS/CHEST: Chest clear to auscultation. No rales, rhonchi, wheezing ABDOMEN: Soft, nontender, nondistended. No masses. Normal bowel sounds. EXTREMITIES: Edema in the lower extremities, left greater than right. SKIN: Right 2 toes missing. Left great toe amputated MUSCULOSKELETAL: In bed NEUROLOGICAL : No neurological deficits Objective Labs 01/08/24 05:01 01/08/24 05:01 Labs: Laboratory Results - last 24 hr 01/07/24 05:08 WBC 10.7 RBC 2.95 L Hgb 8.6 L Hct 26.9 L MCV 91 MCH 29.2 MCHC 32.0 RDW Std Deviation 46.0 Plt Count 306 Neut % (Auto) 72 Lymph % (Auto) 11 [place] % (Auto) 12 Eos % (Auto) 1 Baso % (Auto) 1 Neut # (Auto) 7.7 Lymph # (Auto) 1.2 [place] # (Auto) 1.3 H Eos # (Auto) 0.1 Baso # (Auto) 0.1 Immature Gran # (Auto) 0.38 H Absolute Nucleated RBC 0.00 Immature Gran % 4 H Nucleated RBC % 0 Sodium 139 Potassium 3.5 Chloride 103 Carbon Dioxide 27.6 Anion Gap 8 BUN 36 H Creatinine 2.9 H D Estim Creat Clear Calc 28.4 L eGFR 19 L BUN/Creatinine Ratio 12 Glucose 178 H Calculated Osmolality 289 Calcium 8.7 Corrected Calcium 8.9 Total Bilirubin 0.4 AST 15 ALT 57 H Alkaline Phosphatase 600 H D Total Protein 6.8 Albumin 3.8 Globulin 3.0 Albumin/Globulin Ratio 1.3 Quality Measures Quality Measures VTE prophylaxis Assessment & Plan Assessment Current Active Medications: Generic Name Dose Route Start Last Admin Trade Name Freq PRN Reason Stop Dose Admin Acetaminophen 650 mg 01/01/24 08:16 01/03/24 13:28 Acetaminophen 325 Mg Tablet PO 01/29/24 20:51 650 mg Q6H PRN Administration MILD PAIN (1-3) OR FEVER > 101 Hydrocodone Bitart/Acetaminophen 1 tab 01/02/24 10:30 01/07/24 03:29 Hydrocodone/Apap 7.5/325 Tablet PO 01/07/24 10:29 1 tab Q6HR PRN Administration PAIN SCALE 4-6 (Moderate Amlodipine Besylate 10 mg 12/31/23 09:00 01/06/24 17:44 Amlodipine Besylate 5 Mg Tablet PO 01/30/24 08:59 10 mg QDAY KARY Administration Ascorbic Acid 500 mg 01/01/24 21:00 01/06/24 20:02 Ascorbic Acid 250 Mg Tablet PO 01/31/24 20:59 500 mg BID KARY Administration Carvedilol 25 mg 01/02/24 17:30 01/06/24 17:49 Carvedilol 12.5 Mg Tablet PO 02/01/24 17:29 25 mg BIDWM KARY Administration Cephalexin HCl 500 mg 01/03/24 11:00 01/07/24 05:47 Cephalexin 250 Mg Capsule PO 01/07/24 10:59 500 mg Q8HR KARY Administration Dextrose 25 ml 12/30/23 21:05 Dextrose 50%-Water Inj 50 Ml Syringe IV 01/29/24 21:04 Q15MIN PRN BG 50-70 responsive npo pt Dextrose 50 ml 12/30/23 21:05 Dextrose 50%-Water Inj 50 Ml Syringe IV 01/29/24 21:04 Q15MIN PRN BG <50 OR BG <70 & pt unresponsive Diphenhydramine HCl 25 mg 01/03/24 22:21 01/07/24 03:29 Diphenhydramine 25 Mg Capsule PO 02/02/24 22:20 25 mg Q6HR PRN Administration Allergic Symptoms Furosemide 40 mg 01/05/24 14:00 01/07/24 05:46 Furosemide Inj 10 Mg/Ml 4ml Vial IVP 02/04/24 13:59 40 mg TID KARY Administration Gabapentin 300 mg 01/03/24 21:00 01/06/24 20:02 Gabapentin 300 Mg Capsule PO 02/02/24 20:59 300 mg HS KARY Administration Glucagon 1 mg 12/30/23 21:05 Glucagon Inj 1 Mg Vial IM Q15MIN PRN BG <70, and no IV access Heparin Sodium (Porcine) 3,300 unit 01/06/24 14:56 01/06/24 16:05 Heparin Sod Inj 1000 Unit/Ml Vial 10 Ml INDWELLCAT 01/20/24 14:55 3,300 unit PRN PRN Administration DIALYSIS Hydralazine HCl 25 mg 12/31/23 09:00 01/07/24 05:46 Hydralazine Hcl 25 Mg Tablet PO 01/30/24 08:59 25 mg TID KARY Administration Hydromorphone HCl 0.75 mg 01/02/24 10:29 01/07/24 04:45 Hydromorphone Inj 2 Mg/Ml Vial IVP 01/07/24 10:25 0.75 mg Q3HR PRN Administration Breakthrough Pain Hydroxyzine HCl 25 mg 01/02/24 11:12 01/06/24 01:38 Hydroxyzine Hcl 25 Mg Tablet PO 01/30/24 00:06 25 mg HS PRN Administration insomnia Insulin Human Lispro 0 unit 01/07/24 07:30 Insulin Lispro (Admelog) 1 Unit/0.01 Ml Unit SC 02/06/24 07:29 ACHS [facility] Protocol Lisinopril 10 mg 01/02/24 13:15 01/06/24 17:43 Lisinopril 2.5 Mg Tablet PO 02/01/24 13:14 10 mg QDAY KARY Administration Metoclopramide HCl 5 mg 01/02/24 20:15 01/07/24 05:47 Metoclopramide Inj 5 Mg/Ml Vial 2 Ml IVP 02/01/24 20:14 5 mg Q6HR KARY Administration Protocol Ondansetron HCl 4 mg 12/30/23 20:52 Ondansetron Inj 2 Mg/Ml Inj 2 Ml IV 01/29/24 20:51 Q6H PRN NAUSEA OR VOMITING Protocol Pantoprazole Sodium 40 mg 01/07/24 09:00 Pantoprazole 40 Mg Tablet PO 02/06/24 08:59 QDAY KARY Sennosides 1 tab 12/31/23 09:00 01/06/24 18:00 Senna Tablet PO 01/30/24 08:59 Not Given QDAY [facility] Protocol Sevelamer Carbonate 800 mg 12/31/23 17:30 01/06/24 17:50 Sevelamer Carbonate 800 Mg Tablet PO 01/30/24 17:29 800 mg TIDWM KARY Administration Zinc Sulfate 220 mg 01/02/24 09:00 01/06/24 17:45 Zinc Sulfate 220 Mg Capsule PO 02/01/24 08:59 220 mg QDAY [facility] Administration Plan Tati Costa is a 48-year-old female with past medical history of type 2 diabetes mellitus (insulin-dependent), hypertension, kidney cancer status post partial nephrectomy, and history of right foot osteomyelitis status post debridement and amputations admitted for CHF and left great toe osteomyelitis work-up and management. #Acute on chronic kidney injury #CKD stage IV #Nephrotic syndrome Patient presented with poor kidney function, BUN, creatinine elevated above baseline. Patient has history of CHF, appears to be in CHF exacerbation clinically based on reported symptoms of orthopnea, exam findings of bilateral lower extremity edema increased compared to baseline per patient. Renal ultrasound showed no hydronephrosis or renal stones. BLE mildly improved with diuresis. Urine protein/creatinine 16.6 g Had a long conversation with patient regarding progressive diabetic nephropathy, proteinuria, anasarca and significant fluid overload. On diuretics. Worsening renal function. GFR less than 15. Patient agreed for dialysis. Will plan on Friday. IR closed Friday. First dialysis session completed without incident. Plan: -Renally dose medications -Avoid nephrotoxic meds -Follow daily labs -Diuretics: Continue with Lasix daily -Hemodialysis today -Arrange outpatient dialysis # ?New onset CHF//diabetic nephropathy #Anasarca #Osteomyelitis, left great toe #History of osteomyelitis, right foot #Type 2 diabetes mellitus, insulin-dependent #Hypertension #Hypertensive urgency Plan as per primary team Thank you for allowing me to participate in the care of this patient. Plan of care discussed with attending Dr. Moreland. Lane Kenney MD PGY-1 Attending Provider Attestation/Addendum Patient seen and examined with resident physician Dr. Kenney. Note reviewed, agree with findings and recommendations. Patient currently seen on dialysis. Tolerating dialysis without any problems. Sequential ultrafiltration for 3 hours, ultrafiltration 2-3 L, Epogen 6000, no heparin ordered. Plan of care discussed with the dialysis nurse. Please see dialysis flowsheet for further details. Next dialysis scheduled for tomorrow
--- NOTE | 2024-01-07 09:49 | PC.NURSE ---
pt reports pain 10/10 to left foot and catheter insertion site, will admin PRN NORCO 7.5/325 at this time and cont. to monitor
--- NOTE | 2024-01-07 10:50 | PC.NURSE ---
Tx terminated 16 min early per pt request r/t pain and anxiety despite explanation of risks vs benefits and offer to reach out to MD for medicinal aid.
[2024-01-07] MEDS: HEPARIN SOD INJ 1000 UNIT/ML VIAL 10 ML 3300 UNIT INDWELLCAT (11:09)
--- NOTE | 2024-01-07 11:27 | ESPR_ITS ---
<Statement entered by Andres Crump MD - 01/08/24 16:14> Senior Resident Attestation: I supervised/discussed management plan with resident physician Dr. Savage, and was involved in the care of this patient. I personally saw and examined the patient and discussed the assessment and plan with the entire medicine team, including my attending. I agree with the assessment and plan as documented. Patient was seen and examined by bedside, had tunnel dialysis catheter placed yesterday having her second dialysis session this morning, continuing patient on IV Lasix along with antibiotic for osteomyelitis. automotive worker working on arranging dialysis chair for patient, likely discharge patient after third dialysis session. Plan of care discussed with patient. Patient's care was discussed with attending physician, Dr. Larry Crump MD PGY-3 Documentation for date of: 01/07/24 Subjective Subjective Interval history: No acute overnight events. Seen after permenant catheter placed by IR Patient seen and examined during dialysis session, permanent catheter. She endorsed feeling pain in her left foot this morning. Nephrology on board; recommends dialysis session today and tomorrow. Will continue IV lasix for CHF. Today is last day of oral keflex for ostemyelitis s/p amputation. Exam Vital Signs Temp Pulse Resp BP Pulse Ox O2 Del Method O2 Flow Rate 98.0 F 80 18 176/93 H 97 Nasal Cannula 4 01/07/24 11:00 01/07/24 11:00 01/07/24 11:00 01/07/24 11:00 01/07/24 11:00 01/07/24 07:40 01/07/24 11:00 Narrative Exam Constitutional: obese, well-developed, legally blind female seen during dialysis. HEENT: NCAT, reactive round pupils b/l, saturating at 96% on NC. Lung: CTAB, no wheezing, no rhonchi, no crackles. Heart: Regular S1S2, no murmurs. Abdomen: Soft, non-tender, Normoactive bowel sounds. Extremities: No cyanosis, No upper extremity edema. 1+ nonpitting edema b/l lower extremities, improving. Wound gauze wrapped around left foot s/p amputation of great toe. Neurologic: Generally alert and oriented to person, place, time. Skin: Warm, dry. Objective Labs 01/08/24 05:01 01/08/24 05:01 Labs: Laboratory Results - last 24 hr 01/07/24 05:08 WBC 10.7 RBC 2.95 L Hgb 8.6 L Hct 26.9 L MCV 91 MCH 29.2 MCHC 32.0 RDW Std Deviation 46.0 Plt Count 306 Neut % (Auto) 72 Lymph % (Auto) 11 [place] % (Auto) 12 Eos % (Auto) 1 Baso % (Auto) 1 Neut # (Auto) 7.7 Lymph # (Auto) 1.2 [place] # (Auto) 1.3 H Eos # (Auto) 0.1 Baso # (Auto) 0.1 Immature Gran # (Auto) 0.38 H Absolute Nucleated RBC 0.00 Immature Gran % 4 H Nucleated RBC % 0 Sodium 139 Potassium 3.5 Chloride 103 Carbon Dioxide 27.6 Anion Gap 8 BUN 36 H Creatinine 2.9 H D Estim Creat Clear Calc 28.4 L eGFR 19 L BUN/Creatinine Ratio 12 Glucose 178 H Calculated Osmolality 289 Calcium 8.7 Corrected Calcium 8.9 Total Bilirubin 0.4 AST 15 ALT 57 H Alkaline Phosphatase 600 H D Total Protein 6.8 Albumin 3.8 Globulin 3.0 Albumin/Globulin Ratio 1.3 Quality Measures Quality Measures VTE prophylaxis Assessment & Plan Assessment Current Active Medications: Generic Name Dose Route Start Last Admin Trade Name Freq PRN Reason Stop Dose Admin Acetaminophen 650 mg 01/01/24 08:16 01/03/24 13:28 Acetaminophen 325 Mg Tablet PO 01/29/24 20:51 650 mg Q6H PRN Administration MILD PAIN (1-3) OR FEVER > 101 Hydrocodone Bitart/Acetaminophen 1 tab 01/07/24 11:22 Hydrocodone/Apap 7.5/325 Tablet PO 01/12/24 11:21 Q6HR PRN PAIN Protocol Amlodipine Besylate 10 mg 12/31/23 09:00 01/06/24 17:44 Amlodipine Besylate 5 Mg Tablet PO 01/30/24 08:59 10 mg QDAY KARY Administration Ascorbic Acid 500 mg 01/01/24 21:00 01/06/24 20:02 Ascorbic Acid 250 Mg Tablet PO 01/31/24 20:59 500 mg BID KARY Administration Carvedilol 25 mg 01/02/24 17:30 01/06/24 17:49 Carvedilol 12.5 Mg Tablet PO 02/01/24 17:29 25 mg BIDWM KARY Administration Dextrose 25 ml 12/30/23 21:05 Dextrose 50%-Water Inj 50 Ml Syringe IV 01/29/24 21:04 Q15MIN PRN BG 50-70 responsive npo pt Dextrose 50 ml 12/30/23 21:05 Dextrose 50%-Water Inj 50 Ml Syringe IV 01/29/24 21:04 Q15MIN PRN BG <50 OR BG <70 & pt unresponsive Diphenhydramine HCl 25 mg 01/03/24 22:21 01/07/24 03:29 Diphenhydramine 25 Mg Capsule PO 02/02/24 22:20 25 mg Q6HR PRN Administration Allergic Symptoms Furosemide 40 mg 01/05/24 14:00 01/07/24 05:46 Furosemide Inj 10 Mg/Ml 4ml Vial IVP 02/04/24 13:59 40 mg TID KARY Administration Gabapentin 300 mg 01/03/24 21:00 01/06/24 20:02 Gabapentin 300 Mg Capsule PO 02/02/24 20:59 300 mg HS KARY Administration Glucagon 1 mg 12/30/23 21:05 Glucagon Inj 1 Mg Vial IM Q15MIN PRN BG <70, and no IV access Heparin Sodium (Porcine) 3,300 unit 01/06/24 14:56 01/07/24 11:09 Heparin Sod Inj 1000 Unit/Ml Vial 10 Ml INDWELLCAT 01/20/24 14:55 3,300 unit PRN PRN Administration DIALYSIS Hydralazine HCl 25 mg 12/31/23 09:00 01/07/24 05:46 Hydralazine Hcl 25 Mg Tablet PO 01/30/24 08:59 25 mg TID KARY Administration Hydromorphone HCl 0.75 mg 01/07/24 11:22 Hydromorphone Inj 2 Mg/Ml Vial IVP 01/12/24 11:21 Q3HR PRN PAIN 7-10 Hydroxyzine HCl 25 mg 01/02/24 11:12 01/06/24 01:38 Hydroxyzine Hcl 25 Mg Tablet PO 01/30/24 00:06 25 mg HS PRN Administration insomnia Insulin Human Lispro 0 unit 01/07/24 07:30 Insulin Lispro (Admelog) 1 Unit/0.01 Ml Unit SC 02/06/24 07:29 ACHS KARY Protocol Lisinopril 10 mg 01/02/24 13:15 01/06/24 17:43 Lisinopril 2.5 Mg Tablet PO 02/01/24 13:14 10 mg QDAY KARY Administration Metoclopramide HCl 5 mg 01/02/24 20:15 01/07/24 05:47 Metoclopramide Inj 5 Mg/Ml Vial 2 Ml IVP 02/01/24 20:14 5 mg Q6HR KARY Administration Protocol Ondansetron HCl 4 mg 12/30/23 20:52 Ondansetron Inj 2 Mg/Ml Inj 2 Ml IV 01/29/24 20:51 Q6H PRN NAUSEA OR VOMITING Protocol Pantoprazole Sodium 40 mg 01/07/24 09:00 Pantoprazole 40 Mg Tablet PO 02/06/24 08:59 QDAY KARY Sennosides 1 tab 12/31/23 09:00 01/06/24 18:00 Senna Tablet PO 01/30/24 08:59 Not Given QDAY [facility] Protocol Sevelamer Carbonate 800 mg 12/31/23 17:30 01/06/24 17:50 Sevelamer Carbonate 800 Mg Tablet PO 01/30/24 17:29 800 mg TIDWM KARY Administration Zinc Sulfate 220 mg 01/02/24 09:00 01/06/24 17:45 Zinc Sulfate 220 Mg Capsule PO 02/01/24 08:59 220 mg QDAY KARY Administration Plan 48-year-old female with past medical history of type 2 diabetes mellitus (insulin-dependent), hypertension, kidney cancer status post partial nephrectomy, and history of right foot osteomyelitis status post debridement and amputations. Found to be septic with HR 104, WBC elevated, Cr at 3.0. Admitted for CHF and left great toe osteomyelitis work-up and management. B/L Pleural effusion, resolved Ultrasound-guided thoracentesis showed small bilateral perfusion, no drainage done.Found to have low hemoglobin at 7.1. On 01/03/2024, 1 unit packed red blood cells transfused. GI was consulted, status post EGD, s/p colonoscopy showed hemorrhoids and diverticulosis, no acute bleeding. S/p Dialysis catheter placement, now on scheduled dialysis per adhesive bandage making operator. #New onset ESRD on dialysis, Day 2 #Nephrotic syndrome #Renal cell carinoma Elevated creatinine/low GFR currently worsening in setting of nephrotic syndrome, requiring dialysis. Renal ultrasound showed: Right kidney 12.3 x 7.2 x 7.1 cm cortex 2.2 cm. Right kidney 11.8 x 6.2 x 5.7 cm cortex 2.3 cm. No hydronephrosis or renal calculi. Bladder prevoid volume 2 87 cc unable to void. Urine random total protein 382. Urine random creatinine 23. Urine random sodium 96. Creatinine improved from 3.6 to 2.9, GFR 19. Considering patient's worsening kidney function, patient was started on dialysis upon IR dialysis catheter placement. Goal removal of 3 L during dialysis today. Plan: Nephrology on board; recommends dialysis session 01/06; requires dialysis on 01/08/2024 -Follow-up renal panel -Avoid nephrotoxic agents #Mildly compensated congestive heart failure, stable #HFpEF EF 60 to 65% Most likely secondary to hypertension and obesity Patient presented with shortness of breath,orthopnea,and PND, requiring oxygen. Oxygen requirement is stable at 4L/min. Lower extremity edema 1+ on left lower extremity, improving. Chest x-ray showed mild chronic heart failure, prominent vascular congestion. Suspect hypertension and obesity led to patient's decompensated heart failure. Patient presents mildly fluid overloaded but improving with continuous output. Good urine output with net balance -3300cc. Possible cardiorenal considering hx of renal cell carcinoma with subsequent heart failure. Echo 06/22/2023: EF 60-65%, trace MR, AR, and mild TR. BNP mildly elevated at 165, troponin negative. NYHA class III. Echo: Normal LV size and function. Estimated EF 60-65%. Mild LVH. Diatsolic dysfunction stage 1 Normal RV size and function. Mild MR, TR. There is a small circumferential pericardial effusion. No evidence of cardiac tamponade. Plan: -Lasix 40 mg IV three times daily, per nephrology recc's -Fluid restriction (1.2 L), daily weight checks, Strict I & O -CMP in am #Diverticulosis #Hemorrhoids #Gastritis #Esophagitis #Nonerosive lesion at GE junction #Normocytic anemia #Status post EGD 01/02/24 #S/p colonoscopy 01/05/2024 Patient suffers from constipation. She has never had a colonoscopy. Denies dizziness or generalized weakness. EGD 01/01 showed gastritis, esophagitis, nonerosive lesions at the GE junction.No bleeding source. Colonoscopy 03/06/2023 showed hemorrhoids and diverticulosis in the sigmoid and the descending colon. No bleeding. Cannot rule out colon cancer in setting renal cell carcinoma hx, requires pathology report. Stool negative for WBCs. Ferritin normal limits. Plan: -Gastroenterology consulted, recommends high-fiber diet and outpatient follow-up with gastroenterology clinic in 2 weeks -Monitor CBC #Osteomyelitis, left great toe #History of osteomyelitis, right foot #S/p left 1st metatarsal amputation on 01/01/2024-Post op day 7 Patient presented with pain in the left foot, found to have left great toe OM, requiring amputation. XR and MRI of the left foot showed osteomyelitis of the proximal and distal phalanges first digit. Distal metatarsal head division and transmetatarsal amputation performed by general surgeon. Blood culture prelim negative x2. Wound culture does not seem to have been collected during amputation. Plan: -Infectious disease was consulted; recommended oral antibiotics for a few days (4-5d) after amputation -General surgery consulted; amputated transmetatarsal, Day 7 -Pain: norco 7.5/325 and dilaudid .75 IV push every 3 hours -Wound care Antimicrobials: -Keflex 500 mg every 8 hours (01/03/2024- 01/07/2024) -Doxycycline 100 mg IV BID (12/29-12/31) and Ceftriaxone 2gm daily (12/31/2023- 01/01/24) #B/L Pleural effusion, stable Ultrasound-guided thoracentesis showed small bilateral perfusion, no drainage done. -no intervention at this time #Hypertension Chronic, uncontrolled BP is elevated >150 SBP. Her elevated blood pressure is likely secondary to pain. Plan: -Continue Lisinopril 10mg daily and Coreg 25mg BID WM -Continue Amlodipine 10 mg daily and Hydralazine 25 mg TID oral #Type 2 diabetes mellitus, insulin-dependent (A1c 9.7%) #Obesity Chronic, uncontrolled Glucose is currently controlled. Patient home lantus 30 units daily. Plan: -SSI lispro -glargine 15units. #Diabetic neuropathy Hx of Diabetic neuropathy. Patient was found drowsy today, hence decreased dosage of gabapentin. ?Gabapentin 300 mg orally daily. #Hypertriglyceridemia Secondary to obesity Triglycerides 156, cholesterol 146, LDL 69, HDL 47 Plan: -F/up outpatient #Elevated Alkaline phosphatase Possibly 2/2 cancer and possible mets #Polysubstance use Patient has a history of methamphetamine and marijuana use. She states that she uses methamphetamines once weekly and marijuana daily. U tox positive for opiates, thiamine, marijuana. -F/up outpatient #Sepsis -resolved #Hyperkalemia, resolved #Hyperphosphatemia- resolved #Metabolic acidosis, resolved #Mild transaminitis-resolved #Hyperchloremia, resolved #Hypertensive urgency, resolved DVT prophylaxis: Heparin SC GI prophylaxis: Pantoprazole 40 mg PO daily Diet: Clear Liquid Lines: Peripheral IV Code status: Full Code Dispo: initial dialysis sessions to be continued inpatient. Diuresis and dialysis, Nephrology on board; pending reccs. Discussed case with my attending Dr. Juarez and senior Andres Crump, PGY-3. Thank you, Jennifer Savage, PGY-2 Attending Provider Attestation/Addendum I have discussed and was present for the essential components of the history, physical examination, diagnosis, and treatment plan with the resident. I agree with the patient's care as documented by the resident and amended herein by me. Sebastian Juarez, DO. Although this document has been carefully reviewed, there may still be some phonetic and other typographical errors. These errors are purely grammatical due to imperfections in the software program and should not be construed in any way to compromise the substance of the patient's medical care during this visit.
[2024-01-07] MEDS: SEVELAMER CARBONATE 800 MG TABLET PO ×2 (12:01→17:19)
[2024-01-07] MEDS: ZINC SULFATE 220 MG CAPSULE PO (12:01)
[2024-01-07] MEDS: carVEDILOL 12.5 MG TABLET 25 MG PO ×2 (12:02→17:19)
[2024-01-07] MEDS: amLODIPine BESYLATE 5 MG TABLET 10 MG PO (12:03)
[2024-01-07] MEDS: SENNA TABLET 1 TAB PO (12:03)
[2024-01-07] MEDS: PANTOPRAZOLE 40 MG TABLET PO (12:04)
[2024-01-07] MEDS: ASCORBIC ACID 250 MG TABLET 500 MG PO ×2 (12:04→21:08)
[2024-01-07] MEDS: Lisinopril 2.5 MG TABLET 10 MG PO (12:05)
[2024-01-07] MEDS: POTASSIUM CHLORIDE 20 mEq TABCR 40 MEQ PO (12:34)
--- NOTE | 2024-01-07 12:57 | PC.SS ---
SS reviewed and provided pt with [employer] with appointment time and date with Dr. Arreguin at [facility]. SS contacted patient's brother, Steven [phone] and provided him with [employer]'s phone number, appointment information (address & phone#), and is aware dialysis chair time is pending. Brother is aware family to provide transportation for 1st session.
[2024-01-07] MEDS: GABAPENTIN 300 MG CAPSULE PO (21:08)
--- NOTE | 2024-01-07 23:01 | ESPR_ITS ---
Documentation for date of: 01/07/24 Subjective Subjective Interval history: Hemoglobin hematocrit 8.6 and 26.9 No signs of any active bleeding Exam Vital Signs Temp Pulse Resp BP Pulse Ox O2 Del Method O2 Flow Rate 97.2 F 77 18 142/66 H 96 Nasal Cannula 4 01/07/24 20:00 01/07/24 21:12 01/07/24 20:00 01/07/24 21:12 01/07/24 20:00 01/07/24 20:00 01/07/24 13:00 Objective Labs 01/07/24 05:08 01/07/24 05:08 Labs: Laboratory Results - last 24 hr 01/07/24 05:08 WBC 10.7 RBC 2.95 L Hgb 8.6 L Hct 26.9 L MCV 91 MCH 29.2 MCHC 32.0 RDW Std Deviation 46.0 Plt Count 306 Neut % (Auto) 72 Lymph % (Auto) 11 [place] % (Auto) 12 Eos % (Auto) 1 Baso % (Auto) 1 Neut # (Auto) 7.7 Lymph # (Auto) 1.2 [place] # (Auto) 1.3 H Eos # (Auto) 0.1 Baso # (Auto) 0.1 Immature Gran # (Auto) 0.38 H Absolute Nucleated RBC 0.00 Immature Gran % 4 H Nucleated RBC % 0 Sodium 139 Potassium 3.5 Chloride 103 Carbon Dioxide 27.6 Anion Gap 8 BUN 36 H Creatinine 2.9 H D Estim Creat Clear Calc 28.4 L eGFR 19 L BUN/Creatinine Ratio 12 Glucose 178 H Calculated Osmolality 289 Calcium 8.7 Corrected Calcium 8.9 Total Bilirubin 0.4 AST 15 ALT 57 H Alkaline Phosphatase 600 H D Total Protein 6.8 Albumin 3.8 Globulin 3.0 Albumin/Globulin Ratio 1.3 Impressions Impression: # Acute posthemorrhagic anemia # Hemorrhagic gastritis # Diverticulosis left colon Continue to monitor CBC Assessment & Plan A&P 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 f/u with outpt primary, I can not see in clinic. backlog too great. 3 mo in most cases Time Spent With Patient Time: Total time spent is greater than 50% in coordination of care (as documented) at patient's floor/unit and/or counseling patient:
[2024-01-08] VITALS (31 sets, daily range): BP systolic 144–176; BP diastolic 68–95; PULSE 67–80; RESP 16–19; TEMP 36.3–36.8; O2SAT 94–98; BMI 38.5
[2024-01-08] MEDS: HYDROmorphone INJ 2 MG/ML VIAL 0.75 MG IVP ×4 (01:49→20:54)
[2024-01-08] MEDS: FUROSEMIDE INJ 10 MG/ML 4ML VIAL 40 MG IVP ×3 (05:30→21:01)
[2024-01-08] MEDS: hydrALAZINE HCL 25 MG TABLET PO ×3 (05:31→21:00)
[2024-01-08] MEDS: METOCLOPRAMIDE INJ 5 MG/ML VIAL 2 ML IVP ×3 (05:32→19:34)
[2024-01-08 06:15] LABS: Basophils # (Auto) 0.1 Thou/mm3 (0.0-0.2); Basophils % (Auto) 1 % (0-2.5); Eosinophils # (Auto) 0.2 Thou/mm3 (0.0-0.5); Eosinophils % (Auto) 1 % (0-10); Hemoglobin 8.9 g/dL (12.0-16.0); Immature Granulocytes % (Auto) 3 % (0-0); Immature Granulocytes Auto 0.35 Thou/mm3 (0.00-0.00); Lymphocytes # (Auto) 1.5 Thou/mm3 (1.0-4.8); Lymphocytes % (Auto) 13 % (10-50); Mean Corpuscular HGB Conc 31.8 g/dl (31.0-37.0); Mean Corpuscular Hemoglobin 29.6 pg (25.0-35.0); Mean Corpuscular Volume 93 fL (80-100); Monocytes # (Auto) 1.4 Thou/mm3 (0.0-0.8); Monocytes % (Auto) 12 % (0-12); Neutrophils # (Auto) 7.7 Thou/mm3 (1.8-7.7); Neutrophils % (Auto) 70 % (37-80); Nucleated Red Blood Cell % 0 /100 WBC (0); Platelet Count 347 Thou/mm3 (140-440); RDW Standard Deviation 46.6 fL (36.4-46.3); Red Blood Count 3.01 Miln/mm3 (4.00-5.20); White Blood Count 11.1 Thou/mm3 (3.6-11.0)
[2024-01-08 06:37] LABS: Alanine Aminotransferase 38 U/L (10-49); Albumin, Serum 3.8 gm/dL (3.5-5.0); Albumin/Globulin Ratio 1.2 (1.2-2.2); Alkaline Phosphatase 527 U/L (46-116); Anion Gap 5 (7-16); Aspartate Amino Transferase 11 U/L (0-34); BUN/Creatinine Ratio 11 Ratio (12-20); Bilirubin,Total 0.3 mg/dL (0.3-1.2); Blood Urea Nitrogen 35 mg/dL (9-23); Calcium 8.8 mg/dL (8.3-10.6); Carbon Dioxide 26.8 mMol/L (20.0-31.0); Chloride 105 mMol/L (98-107); Creatinine (Component) 3.2 mg/dL (0.6-1.3); Estimated Creatinine Clearance 24.8 mL/min (>60); Globulin 3.2 gm/dL (2.3-3.5); Glucose 152 mg/dL (74-106); Osmolality,Calculated 284 (275-295); Sodium 137 mMol/L (136-145); eGFR 17 See Note
[2024-01-08] MEDS: LORazepam 2 MG/ML VIAL 0.5 MG IVP (08:46)
--- NOTE | 2024-01-08 08:58 | PC.SS ---
SS followed up with Shilpi at [facility] who explained insurance approval for dialysis chair time is still pending. TB skin test read today.
--- NOTE | 2024-01-08 09:17 | PC.NURSE ---
Pt was seen and examined by Dr Moreland while on HD. Ordered to increase UF goal to 3L as tolerated. Pt awake/resting. VS stable
--- NOTE | 2024-01-08 09:26 | PD.RESPRO ---
Documentation for date of: 01/08/24 Subjective Subjective Interval history: Ms. Costa is a 48 y/o F with PMHx significant for type 2 diabetes mellitus (insulin-dependent), hypertension, kidney cancer status post partial nephrectomy, and history of right foot osteomyelitis status post debridement and amputations now presents with shortness of breath and left great toe pain. Patient states that she has been short of breath for last couple of days, endorsing orthopnea and PND with associated bilateral lower extremity edema, bilateral upper extremity edema, and swelling around the eyes and tongue. She denies chest pain, pressure, and tightness. Also reports pain in left great toe initially with purulent drainage, now with serosanguineous material on bed sheets in ED. Denies fever and chills but endorses sweats. Otherwise denies dysuria, hematuria, or foul-smelling urine. Labs at time of admission showed BUN 48 (baseline 19?22), [place] 3.0 (baseline 1.5), GFR 18. Chest x-ray showed heart failure pattern, bibasilar pneumonia, moderate left and large right pleural effusions. X-ray of left foot showed significant osteo of distal phalanx of first digit. Patient admitted for CHF exacerbation and left toe osteomyelitis. Nephrology was consulted due to KIM on CKD. Patient seen in ED resting in bed. Patient had bilateral lower extremity edema, worse than usual per patient. Lungs clear to auscultation, poor lung sounds due to body habitus. Labs at time of exam showed sodium 136, potassium 5.5, bicarb 16.3, BUN 51, creatinine 3.0, eGFR 18. Plan for additional diuretics, suspect cardiorenal syndrome due to fluid overload state. 12/31: Patient seen resting comfortably in bed. Patient has lower extremity edema, mildly improved. Lungs clear to auscultation, poor lung sounds due to body habitus. Sodium 138, potassium 4.3, bicarb 20.1, BUN 55, creatinine 2.4, eGFR 16. Plan for amputation of left great toe later today. 01/05/2024 patient currently seen in medical floor. She is blind from diabetic retinopathy. She has severe progressive diabetic nephropathy with nephrotic range proteinuria and nephrotic syndrome with significant anasarca. On diuretics. GFR declining. Had a long conversation with patient regarding renal replacement therapy as her GFR is less than 15 and she agreed for dialysis if indicated. Currently on diuretics. Cannot give any fluids due to anasarca. Labs, medications reviewed. Will proceed with dialysis in a.m. Patient complaining of significant edema. Will increase the Lasix to 3 times daily. Plan of care discussed with primary team 01/05: Patient seen and examined at bedside. Patient appeared agitated, complained of generalized feeling of malaise. Patient given 1 mg Ativan IV push. Patient still shows anasarca on exam. 1.2 L in, 2.0 L out over past 24 hours. Labs showed some improvement: BUN 50, creatinine 2.6, eGFR 15. Plan for hemodialysis today. 01/06: Patient seen and examined during dialysis. Patient is resting comfortably, denies anxiety, chest pain, shortness of breath. 0.7 L in, 4.1 L out over past 24 hours labs continue to improve: BUN 36, creatinine 2.9, eGFR 19. 01/07: Patient seen and examined during dialysis. Patient complains of anxiety, will give 0.5 mg Ativan x 1. Denies chest pain shortness of breath. BUN 35, creatinine 3.2, eGFR 17. Exam Vital Signs Temp Pulse Resp BP Pulse Ox O2 Del Method O2 Flow Rate 97.7 F 73 17 158/88 H 94 L Nasal Cannula 3 01/08/24 08:00 01/08/24 09:15 01/08/24 08:00 01/08/24 09:15 01/08/24 08:00 01/08/24 08:00 01/08/24 08:00 Narrative Exam GENERAL APPEARANCE: Patient appears anxious. HEENT: Patient blind CARDIOVASCULAR: Heart regular, no murmurs LUNGS/CHEST: Chest clear to auscultation. No rales, rhonchi, wheezing ABDOMEN: Soft, nontender, nondistended. No masses. Normal bowel sounds. EXTREMITIES: Edema in the lower extremities, left greater than right. SKIN: Right 2 toes missing. Left great toe amputated MUSCULOSKELETAL: In bed NEUROLOGICAL : No neurological deficits Objective Labs 01/08/24 05:01 01/08/24 05:01 Labs: Laboratory Results - last 24 hr 01/08/24 05:01 WBC 11.1 H RBC 3.01 L Hgb 8.9 L Hct 28.0 L MCV 93 MCH 29.6 MCHC 31.8 RDW Std Deviation 46.6 H Plt Count 347 D Neut % (Auto) 70 Lymph % (Auto) 13 [place] % (Auto) 12 Eos % (Auto) 1 Baso % (Auto) 1 Neut # (Auto) 7.7 Lymph # (Auto) 1.5 [place] # (Auto) 1.4 H Eos # (Auto) 0.2 Baso # (Auto) 0.1 Immature Gran # (Auto) 0.35 H Absolute Nucleated RBC 0.00 Immature Gran % 3 H Nucleated RBC % 0 Sodium 137 Potassium 4.0 D Chloride 105 Carbon Dioxide 26.8 Anion Gap 5 L BUN 35 H Creatinine 3.2 H Estim Creat Clear Calc 24.8 L eGFR 17 L BUN/Creatinine Ratio 11 L Glucose 152 H Calculated Osmolality 284 Calcium 8.8 Corrected Calcium 9.0 Total Bilirubin 0.3 AST 11 ALT 38 Alkaline Phosphatase 527 H D Total Protein 7.0 Albumin 3.8 Globulin 3.2 Albumin/Globulin Ratio 1.2 Quality Measures Quality Measures VTE prophylaxis Assessment & Plan Assessment Current Active Medications: Generic Name Dose Route Start Last Admin Trade Name Freq PRN Reason Stop Dose Admin Acetaminophen 650 mg 01/01/24 08:16 01/03/24 13:28 Acetaminophen 325 Mg Tablet PO 01/29/24 20:51 650 mg Q6H PRN Administration MILD PAIN (1-3) OR FEVER > 101 Hydrocodone Bitart/Acetaminophen 1 tab 01/07/24 11:22 Hydrocodone/Apap 7.5/325 Tablet PO 01/12/24 11:21 Q6HR PRN PAIN Protocol Amlodipine Besylate 10 mg 12/31/23 09:00 01/07/24 12:03 Amlodipine Besylate 5 Mg Tablet PO 01/30/24 08:59 10 mg QDAY KARY Administration Ascorbic Acid 500 mg 01/01/24 21:00 01/07/24 21:08 Ascorbic Acid 250 Mg Tablet PO 01/31/24 20:59 500 mg BID KARY Administration Carvedilol 25 mg 01/02/24 17:30 01/07/24 17:19 Carvedilol 12.5 Mg Tablet PO 02/01/24 17:29 25 mg BIDWM KARY Administration Dextrose 25 ml 12/30/23 21:05 Dextrose 50%-Water Inj 50 Ml Syringe IV 01/29/24 21:04 Q15MIN PRN BG 50-70 responsive npo pt Dextrose 50 ml 12/30/23 21:05 Dextrose 50%-Water Inj 50 Ml Syringe IV 01/29/24 21:04 Q15MIN PRN BG <50 OR BG <70 & pt unresponsive Diphenhydramine HCl 25 mg 01/03/24 22:21 01/07/24 23:55 Diphenhydramine 25 Mg Capsule PO 02/02/24 22:20 25 mg Q6HR PRN Administration Allergic Symptoms Furosemide 40 mg 01/05/24 14:00 01/08/24 05:30 Furosemide Inj 10 Mg/Ml 4ml Vial IVP 02/04/24 13:59 40 mg TID KARY Administration Gabapentin 300 mg 01/03/24 21:00 01/07/24 21:08 Gabapentin 300 Mg Capsule PO 02/02/24 20:59 300 mg HS KARY Administration Glucagon 1 mg 12/30/23 21:05 Glucagon Inj 1 Mg Vial IM Q15MIN PRN BG <70, and no IV access Heparin Sodium (Porcine) 3,300 unit 01/06/24 14:56 01/07/24 11:09 Heparin Sod Inj 1000 Unit/Ml Vial 10 Ml INDWELLCAT 01/20/24 14:55 3,300 unit PRN PRN Administration DIALYSIS Hydralazine HCl 25 mg 12/31/23 09:00 01/08/24 05:31 Hydralazine Hcl 25 Mg Tablet PO 01/30/24 08:59 25 mg TID KARY Administration Hydromorphone HCl 0.75 mg 01/07/24 11:22 01/08/24 05:28 Hydromorphone Inj 2 Mg/Ml Vial IVP 01/12/24 11:21 0.75 mg Q3HR PRN Administration PAIN 7-10 Hydroxyzine HCl 25 mg 01/02/24 11:12 01/06/24 01:38 Hydroxyzine Hcl 25 Mg Tablet PO 01/30/24 00:06 25 mg HS PRN Administration insomnia Insulin Human Lispro 0 unit 01/07/24 07:30 01/08/24 07:57 Insulin Lispro (Admelog) 1 Unit/0.01 Ml Unit SC 02/06/24 07:29 Not Given ACHS [facility] Protocol Lisinopril 20 mg 01/08/24 09:15 Lisinopril 20 Mg Tablet PO 02/07/24 09:14 QDAY KARY Metoclopramide HCl 5 mg 01/02/24 20:15 01/08/24 05:32 Metoclopramide Inj 5 Mg/Ml Vial 2 Ml IVP 02/01/24 20:14 5 mg Q6HR KARY Administration Protocol Ondansetron HCl 4 mg 12/30/23 20:52 Ondansetron Inj 2 Mg/Ml Inj 2 Ml IV 01/29/24 20:51 Q6H PRN NAUSEA OR VOMITING Protocol Pantoprazole Sodium 40 mg 01/07/24 09:00 01/07/24 12:04 Pantoprazole 40 Mg Tablet PO 02/06/24 08:59 40 mg QDAY KARY Administration Sennosides 1 tab 12/31/23 09:00 01/07/24 12:03 Senna Tablet PO 01/30/24 08:59 1 tab QDAY KARY Administration Protocol Sevelamer Carbonate 800 mg 12/31/23 17:30 01/07/24 17:19 Sevelamer Carbonate 800 Mg Tablet PO 01/30/24 17:29 800 mg TIDWM KARY Administration Zinc Sulfate 220 mg 01/02/24 09:00 01/07/24 12:01 Zinc Sulfate 220 Mg Capsule PO 02/01/24 08:59 220 mg QDAY KARY Administration Plan Tati Costa is a 48-year-old female with past medical history of type 2 diabetes mellitus (insulin-dependent), hypertension, kidney cancer status post partial nephrectomy, and history of right foot osteomyelitis status post debridement and amputations admitted for CHF and left great toe osteomyelitis work-up and management. #Acute on chronic kidney injury #CKD stage IV #Nephrotic syndrome Patient presented with poor kidney function, BUN, creatinine elevated above baseline. Patient has history of CHF, appears to be in CHF exacerbation clinically based on reported symptoms of orthopnea, exam findings of bilateral lower extremity edema increased compared to baseline per patient. Renal ultrasound showed no hydronephrosis or renal stones. BLE mildly improved with diuresis. Urine protein/creatinine 16.6 g Had a long conversation with patient regarding progressive diabetic nephropathy, proteinuria, anasarca and significant fluid overload. On diuretics. Worsening renal function. GFR less than 15. Patient agreed for dialysis. Will plan on Friday. IR closed Friday. First dialysis session completed without incident. Plan: -Renally dose medications -Avoid nephrotoxic meds -Follow daily labs -Diuretics: Continue with Lasix daily -Hemodialysis today -Arrange outpatient dialysis # ?New onset CHF//diabetic nephropathy #Anasarca #Osteomyelitis, left great toe #History of osteomyelitis, right foot #Type 2 diabetes mellitus, insulin-dependent #Hypertension #Hypertensive urgency Plan as per primary team Thank you for allowing me to participate in the care of this patient. Plan of care discussed with attending Dr. Moreland. Lane Kenney MD PGY-1 Attending Provider Attestation/Addendum Patient seen and examined with resident physician Dr. Kenney. Note reviewed, agree with findings and recommendations. Patient currently seen on dialysis. Tolerating dialysis without any problems. Hemodialysis for 3 hours, 2K, ultrafiltration 3.4L, Epogen 6000, no heparin ordered. Plan of care discussed with the dialysis nurse. Please see dialysis flowsheet for further details. Outpatient dialysis pending.
--- NOTE | 2024-01-08 10:45 | PC.SS ---
SS met with bedside nurse, Nelson and explained pt is requiring O2 testing to determine if pt qualifies for home O2.
[2024-01-08] MEDS: DiphenhydrAMINE 25 MG CAPSULE PO (12:23)
[2024-01-08] MEDS: INSULIN LISPRO (AdmeLOG) 1 UNIT/0.01 ML UNIT SC ×3 (12:23→21:12)
[2024-01-08] MEDS: ASCORBIC ACID 250 MG TABLET 500 MG PO ×2 (12:24→20:58)
[2024-01-08] MEDS: SEVELAMER CARBONATE 800 MG TABLET PO (12:24)
[2024-01-08] MEDS: Lisinopril 20 MG TABLET PO (12:25)
[2024-01-08] MEDS: ZINC SULFATE 220 MG CAPSULE PO (12:25)
[2024-01-08] MEDS: PANTOPRAZOLE 40 MG TABLET PO (12:25)
[2024-01-08] MEDS: amLODIPine BESYLATE 5 MG TABLET 10 MG PO (12:25)
[2024-01-08] MEDS: SENNA TABLET 1 TAB PO (12:26)
[2024-01-08] MEDS: carVEDILOL 12.5 MG TABLET 25 MG PO ×2 (12:47→19:35)
--- NOTE | 2024-01-08 14:53 | CHAP ---
10:30 AM Visited by spiritual care volunteer Provided prayer for Patient.
--- NOTE | 2024-01-08 15:09 | PC.SS ---
SS met with bedside nurse, Nelson and informed him pt is still requiring O2 testing for home O2.
--- NOTE | 2024-01-08 15:26 | PC.NURSE ---
oxygen test conducted, pt on 3L NC saturating at 95% O2, pt on room air O2 sat below 86% while doing mild exercise at bedside, pt placed back on 3L NC and oxygen back up to 95%, pt tolerating well.
--- NOTE | 2024-01-08 15:46 | PC.SS ---
SS has sent DME order for home O2 using [employer].
--- NOTE | 2024-01-08 17:02 | ESPR_ITS ---
<Statement entered by Andres Crump MD - 01/09/24 16:01> Senior Resident Attestation: I supervised/discussed management plan with resident physician Dr. Savage, and was involved in the care of this patient. I personally saw and examined the patient and discussed the assessment and plan with the entire medicine team, including my attending. Patient's care was discussed with attending physician, Dr. Larry Crump MD PGY-3 Documentation for date of: 01/08/24 Subjective Subjective Interval history: No acute overnight events. Patient seen and examined at bedside. She endorsed feeling pain in her left foot this morning. She was seen during wound care nurse session. Nephrology and socially responsible investment adviser are coordinating for outpatient chair time for dialysis. Diuresis as needed for CHF. Exam Vital Signs Temp Pulse Resp BP Pulse Ox O2 Del Method O2 Flow Rate 97.8 F 67 17 159/68 H 97 Nasal Cannula 3 01/08/24 16:00 01/08/24 16:00 01/08/24 16:00 01/08/24 16:00 01/08/24 16:00 01/08/24 16:00 01/08/24 16:00 Narrative Exam Constitutional: obese, well-developed, legally blind female seen during dialysis. HEENT: NCAT, reactive round pupils b/l, saturating at on NC. Lung: CTAB, no wheezing, no rhonchi, no crackles. Heart: Regular S1S2, no murmurs. Abdomen: Soft, non-tender, Normoactive bowel sounds. Extremities: No cyanosis, No upper extremity edema. 1+ nonpitting edema b/l lower extremities, improving. Wound gauze wrapped around left foot s/p amputation of great toe. Right 3rd through 4th digits amputated. Neurologic: Generally alert and oriented to person, place, time. Skin: Warm, dry. Objective Labs 01/09/24 05:05 01/09/24 05:05 Labs: Laboratory Results - last 24 hr 01/08/24 05:01 WBC 11.1 H RBC 3.01 L Hgb 8.9 L Hct 28.0 L MCV 93 MCH 29.6 MCHC 31.8 RDW Std Deviation 46.6 H Plt Count 347 D Neut % (Auto) 70 Lymph % (Auto) 13 [place] % (Auto) 12 Eos % (Auto) 1 Baso % (Auto) 1 Neut # (Auto) 7.7 Lymph # (Auto) 1.5 [place] # (Auto) 1.4 H Eos # (Auto) 0.2 Baso # (Auto) 0.1 Immature Gran # (Auto) 0.35 H Absolute Nucleated RBC 0.00 Immature Gran % 3 H Nucleated RBC % 0 Sodium 137 Potassium 4.0 D Chloride 105 Carbon Dioxide 26.8 Anion Gap 5 L BUN 35 H Creatinine 3.2 H Estim Creat Clear Calc 24.8 L eGFR 17 L BUN/Creatinine Ratio 11 L Glucose 152 H Calculated Osmolality 284 Calcium 8.8 Corrected Calcium 9.0 Total Bilirubin 0.3 AST 11 ALT 38 Alkaline Phosphatase 527 H D Total Protein 7.0 Albumin 3.8 Globulin 3.2 Albumin/Globulin Ratio 1.2 Quality Measures Quality Measures VTE prophylaxis Assessment & Plan Assessment Current Active Medications: Generic Name Dose Route Start Last Admin Trade Name Freq PRN Reason Stop Dose Admin Acetaminophen 650 mg 01/01/24 08:16 01/03/24 13:28 Acetaminophen 325 Mg Tablet PO 01/29/24 20:51 650 mg Q6H PRN Administration MILD PAIN (1-3) OR FEVER > 101 Hydrocodone Bitart/Acetaminophen 1 tab 01/07/24 11:22 Hydrocodone/Apap 7.5/325 Tablet PO 01/12/24 11:21 Q6HR PRN PAIN Protocol Amlodipine Besylate 10 mg 12/31/23 09:00 01/08/24 12:25 Amlodipine Besylate 5 Mg Tablet PO 01/30/24 08:59 10 mg QDAY KARY Administration Ascorbic Acid 500 mg 01/01/24 21:00 01/08/24 12:24 Ascorbic Acid 250 Mg Tablet PO 01/31/24 20:59 500 mg BID KARY Administration Carvedilol 25 mg 01/02/24 17:30 01/08/24 12:47 Carvedilol 12.5 Mg Tablet PO 02/01/24 17:29 25 mg BIDWM KARY Administration Dextrose 25 ml 12/30/23 21:05 Dextrose 50%-Water Inj 50 Ml Syringe IV 01/29/24 21:04 Q15MIN PRN BG 50-70 responsive npo pt Dextrose 50 ml 12/30/23 21:05 Dextrose 50%-Water Inj 50 Ml Syringe IV 01/29/24 21:04 Q15MIN PRN BG <50 OR BG <70 & pt unresponsive Diphenhydramine HCl 25 mg 01/03/24 22:21 01/08/24 12:23 Diphenhydramine 25 Mg Capsule PO 02/02/24 22:20 25 mg Q6HR PRN Administration Allergic Symptoms Furosemide 40 mg 01/05/24 14:00 01/08/24 13:56 Furosemide Inj 10 Mg/Ml 4ml Vial IVP 02/04/24 13:59 40 mg TID KARY Administration Gabapentin 300 mg 01/03/24 21:00 01/07/24 21:08 Gabapentin 300 Mg Capsule PO 02/02/24 20:59 300 mg HS KARY Administration Glucagon 1 mg 12/30/23 21:05 Glucagon Inj 1 Mg Vial IM Q15MIN PRN BG <70, and no IV access Heparin Sodium (Porcine) 3,300 unit 01/06/24 14:56 01/07/24 11:09 Heparin Sod Inj 1000 Unit/Ml Vial 10 Ml INDWELLCAT 01/20/24 14:55 3,300 unit PRN PRN Administration DIALYSIS Hydralazine HCl 25 mg 12/31/23 09:00 01/08/24 13:56 Hydralazine Hcl 25 Mg Tablet PO 01/30/24 08:59 25 mg TID KARY Administration Hydromorphone HCl 0.75 mg 01/07/24 11:22 01/08/24 12:22 Hydromorphone Inj 2 Mg/Ml Vial IVP 01/12/24 11:21 0.75 mg Q3HR PRN Administration PAIN 7-10 Hydroxyzine HCl 25 mg 01/02/24 11:12 01/06/24 01:38 Hydroxyzine Hcl 25 Mg Tablet PO 01/30/24 00:06 25 mg HS PRN Administration insomnia Insulin Human Lispro 0 unit 01/07/24 07:30 01/08/24 12:23 Insulin Lispro (Admelog) 1 Unit/0.01 Ml Unit SC 02/06/24 07:29 3 unit ACHS KARY Administration Protocol Lisinopril 20 mg 01/08/24 09:15 01/08/24 12:25 Lisinopril 20 Mg Tablet PO 02/07/24 09:14 20 mg QDAY KARY Administration Metoclopramide HCl 5 mg 01/02/24 20:15 01/08/24 12:23 Metoclopramide Inj 5 Mg/Ml Vial 2 Ml IVP 02/01/24 20:14 5 mg Q6HR KARY Administration Protocol Ondansetron HCl 4 mg 12/30/23 20:52 Ondansetron Inj 2 Mg/Ml Inj 2 Ml IV 01/29/24 20:51 Q6H PRN NAUSEA OR VOMITING Protocol Pantoprazole Sodium 40 mg 01/07/24 09:00 01/08/24 12:25 Pantoprazole 40 Mg Tablet PO 02/06/24 08:59 40 mg QDAY KARY Administration Sennosides 1 tab 12/31/23 09:00 01/08/24 12:26 Senna Tablet PO 01/30/24 08:59 1 tab QDAY KARY Administration Protocol Sevelamer Carbonate 800 mg 12/31/23 17:30 01/08/24 12:24 Sevelamer Carbonate 800 Mg Tablet PO 01/30/24 17:29 800 mg TIDWM KARY Administration Zinc Sulfate 220 mg 01/02/24 09:00 01/08/24 12:25 Zinc Sulfate 220 Mg Capsule PO 02/01/24 08:59 220 mg QDAY KARY Administration Plan 48-year-old female with past medical history of type 2 diabetes mellitus (insulin-dependent), hypertension, kidney cancer status post partial nephrectomy, and history of right foot osteomyelitis status post debridement and amputations. Found to be septic with HR 104, WBC elevated, Cr at 3.0. Admitted for CHF and left great toe osteomyelitis work-up and management. Ultrasound- guided thoracentesis showed small bilateral perfusion, no drainage done.Found to have low hemoglobin at 7.1. On 01/03/2024, 1 unit packed red blood cells transfused. GI was consulted, status post EGD, s/p colonoscopy showed hemorrhoids and diverticulosis, no acute bleeding. S/p Dialysis catheter placement, now on scheduled dialysis per [employer] [facility]. #New onset ESRD on dialysis, Day 2 #Nephrotic syndrome #Renal cell carinoma Elevated creatinine/low GFR currently worsening in setting of nephrotic syndrome, requiring dialysis. Renal ultrasound showed: Right kidney 12.3 x 7.2 x 7.1 cm cortex 2.2 cm. Right kidney 11.8 x 6.2 x 5.7 cm cortex 2.3 cm. No hydronephrosis or renal calculi. Bladder prevoid volume 2 87 cc unable to void. Urine random total protein 382. Urine random creatinine 23. Urine random sodium 96. Creatinine increased from 2.9 to 3.2, GFR 19. Considering patient's worsening kidney function, she is now on dialysis started during this hospitalization. Plan: -Nephrology on board; recommends dialysis session 01/06; requires dialysis on 01/08/2024 and 01/09/2024. -Pending nephrology to set up chair time in outpatient setting for dialysis. -Follow-up renal panel -Avoid nephrotoxic agents #Mildly compensated congestive heart failure, stable #HFpEF EF 60 to 65% Most likely secondary to hypertension and obesity Patient presented with shortness of breath,orthopnea,and PND, requiring oxygen. Oxygen requirement is stable at 4L/min. Lower extremity edema 1+ on left lower extremity, improving. Chest x-ray showed mild chronic heart failure, prominent vascular congestion. Suspect hypertension and obesity led to patient's heart failure, currently heart failure is moderately compensated with aggressive diuresis. Patient continues to have good urine output. Possible cardiorenal considering hx of renal cell carcinoma with subsequent heart failure. Echo 06/22/2023: EF 60-65%, trace MR, AR, and mild TR. BNP mildly elevated at 165, troponin negative. NYHA class III. Echo: Normal LV size and function. Estimated EF 60-65%. Mild LVH. Diatsolic dysfunction stage 1 Normal RV size and function. Mild MR, TR. There is a small circumferential pericardial effusion. No evidence of cardiac tamponade. Plan: -Lasix 40 mg IV three times daily, per nephrology recc's -Fluid restriction (1.2 L), daily weight checks, Strict I & O -CMP in am #Diverticulosis #Hemorrhoids #Gastritis #Esophagitis #Nonerosive lesion at GE junction #Normocytic anemia #Status post EGD 01/02/24 #S/p colonoscopy 01/05/2024 Patient suffers from constipation. She has never had a colonoscopy. Denies dizziness or generalized weakness. EGD 01/01 showed gastritis, esophagitis, nonerosive lesions at the GE junction.No bleeding source. Colonoscopy 03/06/2023 showed hemorrhoids and diverticulosis in the sigmoid and the descending colon. No bleeding. Cannot rule out colon cancer in setting renal cell carcinoma hx, requires pathology report. Stool negative for WBCs. Ferritin normal limits. Plan: -Gastroenterology consulted, recommends high-fiber diet and outpatient follow-up with gastroenterology clinic in 2 weeks -Monitor CBC #Osteomyelitis, left great toe #History of osteomyelitis, right foot #S/p left 1st metatarsal amputation on 01/01/2024-Post op day 8 Patient presented with pain in the left foot, found to have left great toe OM, requiring amputation. XR and MRI of the left foot showed osteomyelitis of the proximal and distal phalanges first digit. Distal metatarsal head division and transmetatarsal amputation performed by general surgeon. Blood culture prelim negative x2. Wound culture does not seem to have been collected during amputation. Plan: -Infectious disease was consulted; recommended oral antibiotics for a few days (4-5d) after amputation--completed -General surgery consulted; amputated transmetatarsal, Day 8 -Pain: norco 7.5/325 and dilaudid .75 IV push every 3 hours -Wound care Antimicrobials: Keflex 500 mg every 8 hours (01/03/2024- 01/07/2024). Doxycycline 100 mg IV BID (12/29-12/31) and Ceftriaxone 2gm daily (12/31/2023- 01/01/24). #Hypertension Chronic, uncontrolled BP is elevated >150 SBP. Her elevated blood pressure is likely secondary to pain. Plan: -Lisinopril 10mg daily increased to 20 mg and Coreg 25mg BID WM -Continue Amlodipine 10 mg daily and Hydralazine 25 mg TID oral #Type 2 diabetes mellitus, insulin-dependent (A1c 9.7%) #Obesity Chronic, uncontrolled Glucose is currently controlled. Patient home lantus 30 units daily. Plan: -SSI lispro -glargine 15units. -Bedside glucose checks -Hypoglycemic protocol #Diabetic neuropathy Hx of Diabetic neuropathy on gabapentin. ?Gabapentin 300 mg orally daily. #Hypertriglyceridemia Secondary to obesity Triglycerides 156, cholesterol 146, LDL 69, HDL 47 Plan: -F/up outpatient #Elevated Alkaline phosphatase Possibly 2/2 cancer and possible mets Alkaline phosphatase 527. #Polysubstance use Patient has a history of methamphetamine and marijuana use. She states that she uses methamphetamines once weekly and marijuana daily. U tox positive for opiates, thiamine, marijuana. -F/up outpatient #Sepsis -resolved #Hyperkalemia, resolved #Hyperphosphatemia- resolved #Metabolic acidosis, resolved #Mild transaminitis-resolved #Hyperchloremia, resolved #Hypertensive urgency, resolved #B/L Pleural effusion, resolved DVT prophylaxis: Heparin SC GI prophylaxis: Pantoprazole 40 mg PO daily Diet: Clear Liquid Lines: Peripheral IV Code status: Full Code Dispo: initial dialysis sessions to be continued inpatient. Diuresis and dialysis, nephrology to set up chair time in outpatient setting for dialysis. Discussed case with my attending Dr. Juarez and senior Andres Crump, PGY-3. Thank you, Jennifer Savage, PGY-2 Attending Provider Attestation/Addendum I have discussed and was present for the essential components of the history, physical examination, diagnosis, and treatment plan with the resident. I agree with the patient's care as documented by the resident and amended herein by me. Sebastian Juarez, DO. Patient seen and evaluated this AM. Vital signs stable, patient afebrile overnight, significant labs include a BUN of 39 and creatinine 3.4. She still pending hemodialysis chair per social work. Will continue Lasix 40 mg daily, we will have to wean the patient off O2 prior to discharge as she will not be able to get O2 at home considering insurance limitations per social work. Will continue to monitor closely while she is here. Although this document has been carefully reviewed, there may still be some phonetic and other typographical errors. These errors are purely grammatical due to imperfections in the software program and should not be construed in any way to compromise the substance of the patient's medical care during this visit.
--- NOTE | 2024-01-08 20:54 | ESPR_ITS ---
Documentation for date of: 01/08/24 Subjective Subjective Interval history: Hemoglobin hematocrit 8.9 and 28.0 Exam Vital Signs Temp Pulse Resp BP Pulse Ox O2 Del Method O2 Flow Rate 97.3 F 71 17 161/81 H 97 Nasal Cannula 3 01/08/24 20:00 01/08/24 20:00 01/08/24 20:00 01/08/24 20:00 01/08/24 20:00 01/08/24 20:00 01/08/24 20:00 Objective Labs 01/08/24 05:01 01/08/24 05:01 Labs: Laboratory Results - last 24 hr 01/08/24 05:01 WBC 11.1 H RBC 3.01 L Hgb 8.9 L Hct 28.0 L MCV 93 MCH 29.6 MCHC 31.8 RDW Std Deviation 46.6 H Plt Count 347 D Neut % (Auto) 70 Lymph % (Auto) 13 K[place]y % (Auto) 12 Eos % (Auto) 1 Baso % (Auto) 1 Neut # (Auto) 7.7 Lymph # (Auto) 1.5 Kenedy # (Auto) 1.4 H Eos # (Auto) 0.2 Baso # (Auto) 0.1 Immature Gran # (Auto) 0.35 H Absolute Nucleated RBC 0.00 Immature Gran % 3 H Nucleated RBC % 0 Sodium 137 Potassium 4.0 D Chloride 105 Carbon Dioxide 26.8 Anion Gap 5 L BUN 35 H Creatinine 3.2 H Estim Creat Clear Calc 24.8 L eGFR 17 L BUN/Creatinine Ratio 11 L Glucose 152 H Calculated Osmolality 284 Calcium 8.8 Corrected Calcium 9.0 Total Bilirubin 0.3 AST 11 ALT 38 Alkaline Phosphatase 527 H D Total Protein 7.0 Albumin 3.8 Globulin 3.2 Albumin/Globulin Ratio 1.2 Impressions Impression: # Acute posthemorrhagic anemia # Gastritis hemorrhagic # Diverticulosis left colon Continue present treatment Assessment & Plan A&P 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 f/u with outpt primary, I can not see in clinic. backlog too great. 3 mo in most cases Time Spent With Patient Time: Total time spent is greater than 50% in coordination of care (as documented) at patient's floor/unit and/or counseling patient:
[2024-01-08] MEDS: GABAPENTIN 300 MG CAPSULE PO (20:58)
[2024-01-08] MEDS: hydrOXYzine HCL 25 MG TABLET PO (22:13)
[2024-01-09] VITALS (16 sets, daily range): BP systolic 139–166; BP diastolic 62–88; PULSE 69–81; RESP 16–19; TEMP 36.1–36.4; O2SAT 91–96
[2024-01-09] MEDS: HYDROmorphone INJ 2 MG/ML VIAL 0.75 MG IVP ×2 (00:04→06:32)
[2024-01-09] MEDS: DiphenhydrAMINE 25 MG CAPSULE PO ×2 (01:52→23:03)
[2024-01-09 05:55] LABS: Basophils # (Auto) 0.1 Thou/mm3 (0.0-0.2); Basophils % (Auto) 1 % (0-2.5); Eosinophils # (Auto) 0.2 Thou/mm3 (0.0-0.5); Eosinophils % (Auto) 1 % (0-10); Hematocrit 28.3 % (36.0-46.0); Immature Granulocytes % (Auto) 3 % (0-0); Immature Granulocytes Auto 0.36 Thou/mm3 (0.00-0.00); Lymphocytes # (Auto) 1.7 Thou/mm3 (1.0-4.8); Lymphocytes % (Auto) 14 % (10-50); Mean Corpuscular HGB Conc 31.8 g/dl (31.0-37.0); Mean Corpuscular Hemoglobin 29.5 pg (25.0-35.0); Mean Corpuscular Volume 93 fL (80-100); Monocytes # (Auto) 1.2 Thou/mm3 (0.0-0.8); Monocytes % (Auto) 10 % (0-12); Neutrophils # (Auto) 8.4 Thou/mm3 (1.8-7.7); Neutrophils % (Auto) 71 % (37-80); Nucleated Red Blood Cell % 0 /100 WBC (0); Platelet Count 335 Thou/mm3 (140-440); RDW Standard Deviation 45.6 fL (36.4-46.3); Red Blood Count 3.05 Miln/mm3 (4.00-5.20); White Blood Count 11.8 Thou/mm3 (3.6-11.0)
[2024-01-09] MEDS: hydrALAZINE HCL 25 MG TABLET PO ×3 (06:10→21:19)
[2024-01-09] MEDS: METOCLOPRAMIDE INJ 5 MG/ML VIAL 2 ML IVP ×4 (06:11→23:03)
[2024-01-09] MEDS: FUROSEMIDE INJ 10 MG/ML 4ML VIAL 40 MG IVP ×3 (06:11→21:19)
[2024-01-09 06:45] LABS: Alanine Aminotransferase 28 U/L (10-49); Albumin, Serum 3.7 gm/dL (3.5-5.0); Albumin/Globulin Ratio 1.2 (1.2-2.2); Alkaline Phosphatase 459 U/L (46-116); Anion Gap 8 (7-16); Aspartate Amino Transferase 11 U/L (0-34); BUN/Creatinine Ratio 11 Ratio (12-20); Bilirubin,Total 0.2 mg/dL (0.3-1.2); Blood Urea Nitrogen 39 mg/dL (9-23); Calcium (Corrected) 9.2 mg/dL (8.5-10.1); Carbon Dioxide 27.4 mMol/L (20.0-31.0); Chloride 103 mMol/L (98-107); Creatinine (Component) 3.4 mg/dL (0.6-1.3); Estimated Creatinine Clearance 23.4 mL/min (>60); Globulin 3.2 gm/dL (2.3-3.5); Glucose 161 mg/dL (74-106); Osmolality,Calculated 288 (275-295); Potassium 3.9 mMol/L (3.4-5.1); Sodium 138 mMol/L (136-145); Total Protein 6.9 gm/dL (5.7-8.2); eGFR 16 See Note
[2024-01-09] MEDS: ZINC SULFATE 220 MG CAPSULE PO (08:37)
[2024-01-09] MEDS: SEVELAMER CARBONATE 800 MG TABLET PO ×3 (08:37→16:59)
[2024-01-09] MEDS: carVEDILOL 12.5 MG TABLET 25 MG PO ×2 (08:37→16:58)
[2024-01-09] MEDS: PANTOPRAZOLE 40 MG TABLET PO (08:38)
[2024-01-09] MEDS: HYDROcodone/APAP 7.5/325 TABLET 1 TAB PO (08:38)
[2024-01-09] MEDS: amLODIPine BESYLATE 5 MG TABLET 10 MG PO (08:38)
[2024-01-09] MEDS: Lisinopril 20 MG TABLET PO (08:38)
[2024-01-09] MEDS: ASCORBIC ACID 250 MG TABLET 500 MG PO ×2 (08:38→20:10)
[2024-01-09] MEDS: SENNA TABLET 1 TAB PO (08:38)
[2024-01-09] MEDS: INSULIN LISPRO (AdmeLOG) 1 UNIT/0.01 ML UNIT SC ×4 (08:38→20:11)
--- NOTE | 2024-01-09 08:44 | ESPR_ITS ---
Documentation for date of: 01/09/24 Subjective Subjective Interval history: Ms. Costa is a 48 y/o F with PMHx significant for type 2 diabetes mellitus (insulin-dependent), hypertension, kidney cancer status post partial nephrectomy, and history of right foot osteomyelitis status post debridement and amputations now presents with shortness of breath and left great toe pain. Patient states that she has been short of breath for last couple of days, endorsing orthopnea and PND with associated bilateral lower extremity edema, bilateral upper extremity edema, and swelling around the eyes and tongue. She denies chest pain, pressure, and tightness. Also reports pain in left great toe initially with purulent drainage, now with serosanguineous material on bed sheets in ED. Denies fever and chills but endorses sweats. Otherwise denies dysuria, hematuria, or foul-smelling urine. Labs at time of admission showed BUN 48 (baseline 19?22), Project Product Manager 3.0 (baseline 1.5), GFR 18. Chest x-ray showed heart failure pattern, bibasilar pneumonia, moderate left and large right pleural effusions. X-ray of left foot showed significant osteo of distal phalanx of first digit. Patient admitted for CHF exacerbation and left toe osteomyelitis. Nephrology was consulted due to KIM on CKD. Patient seen in ED resting in bed. Patient had bilateral lower extremity edema, worse than usual per patient. Lungs clear to auscultation, poor lung sounds due to body habitus. Labs at time of exam showed sodium 136, potassium 5.5, bicarb 16.3, BUN 51, creatinine 3.0, eGFR 18. Plan for additional diuretics, suspect cardiorenal syndrome due to fluid overload state. 12/31: Patient seen resting comfortably in bed. Patient has lower extremity edema, mildly improved. Lungs clear to auscultation, poor lung sounds due to body habitus. Sodium 138, potassium 4.3, bicarb 20.1, BUN 55, creatinine 2.4, eGFR 16. Plan for amputation of left great toe later today. 01/05/2024 patient currently seen in medical floor. She is blind from diabetic retinopathy. She has severe progressive diabetic nephropathy with nephrotic range proteinuria and nephrotic syndrome with significant anasarca. On diuretics. GFR declining. Had a long conversation with patient regarding renal replacement therapy as her GFR is less than 15 and she agreed for dialysis if indicated. Currently on diuretics. Cannot give any fluids due to anasarca. Labs, medications reviewed. Will proceed with dialysis in a.m. Patient complaining of significant edema. Will increase the Lasix to 3 times daily. Plan of care discussed with primary team 01/05: Patient seen and examined at bedside. Patient appeared agitated, complained of generalized feeling of malaise. Patient given 1 mg Ativan IV push. Patient still shows anasarca on exam. 1.2 L in, 2.0 L out over past 24 hours. Labs showed some improvement: BUN 50, creatinine 2.6, eGFR 15. Plan for hemodialysis today. 01/06: Patient seen and examined during dialysis. Patient is resting comfortably, denies anxiety, chest pain, shortness of breath. 0.7 L in, 4.1 L out over past 24 hours labs continue to improve: BUN 36, creatinine 2.9, eGFR 19. 01/07: Patient seen and examined during dialysis. Patient complains of anxiety, will give 0.5 mg Ativan x 1. Denies chest pain shortness of breath. BUN 35, creatinine 3.2, eGFR 17. 01/08: Patient seen and examined on the floors. Patient complains of mild anxiety. Denies shortness of breath or chest pain. 1.8 L urine output. BUN 39, creatinine 3.4, eGFR 16. No plans for dialysis today. Corral catheter discontinued. Recommend increase bed to chair time. Attempting to arrange outpatient dialysis for patient, limited by patient's insurance. Exam Vital Signs Temp Pulse Resp BP Pulse Ox O2 Del Method O2 Flow Rate 97.4 F 74 18 166/83 H 96 Nasal Cannula 3 01/09/24 08:00 01/09/24 08:00 01/09/24 08:00 01/09/24 08:00 01/09/24 08:00 01/09/24 08:00 01/09/24 08:00 Narrative Exam GENERAL APPEARANCE: Patient appears mildly anxious. HEENT: Patient blind CARDIOVASCULAR: Heart regular, no murmurs LUNGS/CHEST: Chest clear to auscultation. No rales, rhonchi, wheezing ABDOMEN: Soft, nontender, nondistended. No masses. Normal bowel sounds. EXTREMITIES: Edema in the lower extremities, left greater than right. SKIN: Right 2 toes missing. Left great toe amputated MUSCULOSKELETAL: In bed NEUROLOGICAL : No neurological deficits Objective Labs 01/09/24 05:05 01/09/24 05:05 Labs: Laboratory Results - last 24 hr 01/09/24 05:05 WBC 11.8 H RBC 3.05 L Hgb 9.0 L Hct 28.3 L MCV 93 MCH 29.5 MCHC 31.8 RDW Std Deviation 45.6 Plt Count 335 Neut % (Auto) 71 Lymph % (Auto) 14 Coffey % (Auto) 10 Eos % (Auto) 1 Baso % (Auto) 1 Neut # (Auto) 8.4 H Lymph # (Auto) 1.7 [place]offey # (Auto) 1.2 H Eos # (Auto) 0.2 Baso # (Auto) 0.1 Immature Gran # (Auto) 0.36 H Absolute Nucleated RBC 0.00 Immature Gran % 3 H Nucleated RBC % 0 Sodium 138 Potassium 3.9 Chloride 103 Carbon Dioxide 27.4 Anion Gap 8 BUN 39 H Creatinine 3.4 H Estim Creat Clear Calc 23.4 L eGFR 16 L BUN/Creatinine Ratio 11 L Glucose 161 H Calculated Osmolality 288 Calcium 9.0 Corrected Calcium 9.2 Total Bilirubin 0.2 L AST 11 ALT 28 Alkaline Phosphatase 459 H D Total Protein 6.9 Albumin 3.7 Globulin 3.2 Albumin/Globulin Ratio 1.2 Quality Measures Quality Measures VTE prophylaxis Assessment & Plan Assessment Current Active Medications: Generic Name Dose Route Start Last Admin Trade Name Freq PRN Reason Stop Dose Admin Acetaminophen 650 mg 01/01/24 08:16 01/03/24 13:28 Acetaminophen 325 Mg Tablet PO 01/29/24 20:51 650 mg Q6H PRN Administration MILD PAIN (1-3) OR FEVER > 101 Hydrocodone Bitart/Acetaminophen 1 tab 01/07/24 11:22 Hydrocodone/Apap 7.5/325 Tablet PO 01/12/24 11:21 Q6HR PRN PAIN Protocol Amlodipine Besylate 10 mg 12/31/23 09:00 01/08/24 12:25 Amlodipine Besylate 5 Mg Tablet PO 01/30/24 08:59 10 mg QDAY KARY Administration Ascorbic Acid 500 mg 01/01/24 21:00 01/08/24 20:58 Ascorbic Acid 250 Mg Tablet PO 01/31/24 20:59 500 mg BID KARY Administration Carvedilol 25 mg 01/02/24 17:30 01/08/24 19:35 Carvedilol 12.5 Mg Tablet PO 02/01/24 17:29 25 mg BIDWM KARY Administration Dextrose 25 ml 12/30/23 21:05 Dextrose 50%-Water Inj 50 Ml Syringe IV 01/29/24 21:04 Q15MIN PRN BG 50-70 responsive npo pt Dextrose 50 ml 12/30/23 21:05 Dextrose 50%-Water Inj 50 Ml Syringe IV 01/29/24 21:04 Q15MIN PRN BG <50 OR BG <70 & pt unresponsive Diphenhydramine HCl 25 mg 01/03/24 22:21 01/09/24 01:52 Diphenhydramine 25 Mg Capsule PO 02/02/24 22:20 25 mg Q6HR PRN Administration Allergic Symptoms Furosemide 40 mg 01/05/24 14:00 01/09/24 06:11 Furosemide Inj 10 Mg/Ml 4ml Vial IVP 02/04/24 13:59 40 mg TID KARY Administration Gabapentin 300 mg 01/03/24 21:00 01/08/24 20:58 Gabapentin 300 Mg Capsule PO 02/02/24 20:59 300 mg HS KARY Administration Glucagon 1 mg 12/30/23 21:05 Glucagon Inj 1 Mg Vial IM Q15MIN PRN BG <70, and no IV access Heparin Sodium (Porcine) 3,300 unit 01/06/24 14:56 01/07/24 11:09 Heparin Sod Inj 1000 Unit/Ml Vial 10 Ml INDWELLCAT 01/20/24 14:55 3,300 unit PRN PRN Administration DIALYSIS Hydralazine HCl 25 mg 12/31/23 09:00 01/09/24 06:10 Hydralazine Hcl 25 Mg Tablet PO 01/30/24 08:59 25 mg TID KARY Administration Hydromorphone HCl 0.75 mg 01/07/24 11:22 01/09/24 06:32 Hydromorphone Inj 2 Mg/Ml Vial IVP 01/12/24 11:21 0.75 mg Q3HR PRN Administration PAIN 7-10 Hydroxyzine HCl 25 mg 01/02/24 11:12 01/08/24 22:13 Hydroxyzine Hcl 25 Mg Tablet PO 01/30/24 00:06 25 mg HS PRN Administration insomnia Insulin Human Lispro 0 unit 01/07/24 07:30 01/08/24 21:12 Insulin Lispro (Admelog) 1 Unit/0.01 Ml Unit SC 02/06/24 07:29 2 unit ACHS KARY Administration Protocol Lisinopril 20 mg 01/08/24 09:15 01/08/24 12:25 Lisinopril 20 Mg Tablet PO 02/07/24 09:14 20 mg QDAY KARY Administration Metoclopramide HCl 5 mg 01/02/24 20:15 01/09/24 06:11 Metoclopramide Inj 5 Mg/Ml Vial 2 Ml IVP 02/01/24 20:14 5 mg Q6HR KARY Administration Protocol Ondansetron HCl 4 mg 12/30/23 20:52 Ondansetron Inj 2 Mg/Ml Inj 2 Ml IV 01/29/24 20:51 Q6H PRN NAUSEA OR VOMITING Protocol Pantoprazole Sodium 40 mg 01/07/24 09:00 01/08/24 12:25 Pantoprazole 40 Mg Tablet PO 02/06/24 08:59 40 mg QDAY KARY Administration Sennosides 1 tab 12/31/23 09:00 01/08/24 12:26 Senna Tablet PO 01/30/24 08:59 1 tab QDAY KARY Administration Protocol Sevelamer Carbonate 800 mg 12/31/23 17:30 01/08/24 18:30 Sevelamer Carbonate 800 Mg Tablet PO 01/30/24 17:29 Not Given TIDWM [facility] Zinc Sulfate 220 mg 01/02/24 09:00 01/08/24 12:25 Zinc Sulfate 220 Mg Capsule PO 02/01/24 08:59 220 mg QDAY KARY Administration Plan Tati Costa is a 48-year-old female with past medical history of type 2 diabetes mellitus (insulin-dependent), hypertension, kidney cancer status post partial nephrectomy, and history of right foot osteomyelitis status post debridement and amputations admitted for CHF and left great toe osteomyelitis work-up and management. #Acute on chronic kidney injury #CKD stage IV #Nephrotic syndrome Patient presented with poor kidney function, BUN, creatinine elevated above baseline. Patient has history of CHF, appears to be in CHF exacerbation clinically based on reported symptoms of orthopnea, exam findings of bilateral lower extremity edema increased compared to baseline per patient. Renal ultrasound showed no hydronephrosis or renal stones. BLE mildly improved with diuresis. Urine protein/creatinine 16.6 g Had a long conversation with patient regarding progressive diabetic nephropathy, proteinuria, anasarca and significant fluid overload. On diuretics. Worsening renal function. GFR less than 15. Patient agreed for dialysis. Will plan on Friday. IR closed Friday. First dialysis session completed without incident. Plan: -Renally dose medications -Avoid nephrotoxic meds -Follow daily labs -Diuretics: Continue with Lasix daily -DC Corral catheter -Arrange outpatient dialysis # ?New onset CHF//diabetic nephropathy #Anasarca #Osteomyelitis, left great toe #History of osteomyelitis, right foot #Type 2 diabetes mellitus, insulin-dependent #Hypertension #Hypertensive urgency Plan as per primary team Thank you for allowing me to participate in the care of this patient. Plan of care discussed with attending Dr. Moreland. Lane Kenney MD PGY-1 Attending Provider Attestation/Addendum Patient seen and examined with resident physician Dr. Kenney. Note reviewed, agree with findings and recommendations. Patient currently seen medical floor. Patient unfortunately legally blind. Very pleasant lady. Did receive 3 dialysis sessions. Unfortunately [facility] cannot accept due to her insurance. We might need to send her to [facility]. Next dialysis scheduled for tomorrow
--- NOTE | 2024-01-09 09:30 | PC.SS ---
Addendum entered by Virgie Contreras 01/09/24 15:27: [facility] explained to contact [phone] to update members address. SS was then transferred to [phone] spoke to [facility] member line who explained they are not member line and transferred to [phone]. Addendum entered by Virgie Contreras 01/09/24 15:09: SS was informed by Muna at [facility] they are not in network with patient's health insurance. SS has faxed inquiry to [facility] in [place] and has inquiry through [employer]. SS has received notice of action which explains [facility] in [place] is not in network. They will approve [facility] in [facility]). SS spoke to Anjali at [facility] in [place] who explained patient's health insurance is not in [facility] and to attempt [facility] in [place] phone# [phone]. Addendum entered by Virgie Contreras 01/09/24 12:11: SS received phone call from Muna at [facility] who has made contact with patient's health insurance from [facility] who had questions regarding patient's permanent address. SS has confirmed with pt she will now be residing here in [place] with her brother ([address]: [id number] [facility] [address]). SS has informed Muna. Original Note: Follow up note: Milton is working on insurance authorization for home O2. LINNETTE has spoken to Muna at [facility] who explained insurance authorization still pending for dialysis chair time. LINNETTE has faxed TB skin test results to [facility].
--- NOTE | 2024-01-09 09:49 | CHAP ---
Patient appeared to be sleeping. Prayed a silent prayer near bed.
[2024-01-09] MEDS: POLYETHYLENE GLYCOL 17 GM PACKET PO (12:19)
[2024-01-09] MEDS: LACTULOSE SYRUP 20 GM/30 ML UDC PO (12:19)
--- NOTE | 2024-01-09 12:41 | ESPR_ITS ---
<Statement entered by Andres Crump MD - 01/09/24 16:54> Senior Resident Attestation: I supervised/discussed management plan with resident physician Dr. Garvey, and was involved in the care of this patient. I personally saw and examined the patient and discussed the assessment and plan with the entire medicine team, including my attending. I agree with the assessment and plan as documented. Patient's care was discussed with attending physician, Dr. Larry Crump MD PGY-3 Documentation for date of: 01/09/24 Subjective Subjective Interval history: No acute overnight events. Patient seen and examined at bedside. Pending dialysis chair time. Nephrology recommends increase bed to chair time Continue physical therapy. Anticipate discharge after authorization obtained for dialysis outpatient. Exam Vital Signs Temp Pulse Resp BP Pulse Ox O2 Del Method O2 Flow Rate 97.0 F 74 17 139/62 H 94 L Room Air 2 01/09/24 12:00 01/09/24 12:00 01/09/24 12:00 01/09/24 12:00 01/09/24 12:00 01/09/24 12:00 01/09/24 08:53 Narrative Exam Constitutional: obese, well-developed, legally blind female. HEENT: NCAT, reactive round pupils b/l, saturating at on 2 L NC. Lung: CTAB, no wheezing, no rhonchi, no crackles. Heart: Regular S1S2, no murmurs. Abdomen: Soft, non-tender, Normoactive bowel sounds. Extremities: No cyanosis, No upper extremity edema. 1+ nonpitting edema b/l lower extremities, improving. Wound gauze wrapped around left foot s/p amputation of great toe. Right 3rd through 4th digits amputated. Neurologic: Generally alert and oriented to person, place, time. Skin: Warm, dry. Objective Labs 01/10/24 05:50 01/10/24 05:50 Labs: Laboratory Results - last 24 hr 01/09/24 05:05 WBC 11.8 H RBC 3.05 L Hgb 9.0 L Hct 28.3 L MCV 93 MCH 29.5 MCHC 31.8 RDW Std Deviation 45.6 Plt Count 335 Neut % (Auto) 71 Lymph % (Auto) 14 [place] % (Auto) 10 Eos % (Auto) 1 Baso % (Auto) 1 Neut # (Auto) 8.4 H Lymph # (Auto) 1.7 [place] # (Auto) 1.2 H Eos # (Auto) 0.2 Baso # (Auto) 0.1 Immature Gran # (Auto) 0.36 H Absolute Nucleated RBC 0.00 Immature Gran % 3 H Nucleated RBC % 0 Sodium 138 Potassium 3.9 Chloride 103 Carbon Dioxide 27.4 Anion Gap 8 BUN 39 H Creatinine 3.4 H Estim Creat Clear Calc 23.4 L eGFR 16 L BUN/Creatinine Ratio 11 L Glucose 161 H Calculated Osmolality 288 Calcium 9.0 Corrected Calcium 9.2 Total Bilirubin 0.2 L AST 11 ALT 28 Alkaline Phosphatase 459 H D Total Protein 6.9 Albumin 3.7 Globulin 3.2 Albumin/Globulin Ratio 1.2 Quality Measures Quality Measures VTE prophylaxis Assessment & Plan Assessment Current Active Medications: Generic Name Dose Route Start Last Admin Trade Name Freq PRN Reason Stop Dose Admin Acetaminophen 650 mg 01/01/24 08:16 01/03/24 13:28 Acetaminophen 325 Mg Tablet PO 01/29/24 20:51 650 mg Q6H PRN Administration MILD PAIN (1-3) OR FEVER > 101 Amlodipine Besylate 10 mg 12/31/23 09:00 01/09/24 08:38 Amlodipine Besylate 5 Mg Tablet PO 01/30/24 08:59 10 mg QDAY KARY Administration Ascorbic Acid 500 mg 01/01/24 21:00 01/09/24 08:38 Ascorbic Acid 250 Mg Tablet PO 01/31/24 20:59 500 mg BID KARY Administration Carvedilol 25 mg 01/02/24 17:30 01/09/24 08:37 Carvedilol 12.5 Mg Tablet PO 02/01/24 17:29 25 mg BIDWM KARY Administration Dextrose 25 ml 12/30/23 21:05 Dextrose 50%-Water Inj 50 Ml Syringe IV 01/29/24 21:04 Q15MIN PRN BG 50-70 responsive npo pt Dextrose 50 ml 12/30/23 21:05 Dextrose 50%-Water Inj 50 Ml Syringe IV 01/29/24 21:04 Q15MIN PRN BG <50 OR BG <70 & pt unresponsive Diphenhydramine HCl 25 mg 01/03/24 22:21 01/09/24 01:52 Diphenhydramine 25 Mg Capsule PO 02/02/24 22:20 25 mg Q6HR PRN Administration Allergic Symptoms Furosemide 40 mg 01/05/24 14:00 01/09/24 06:11 Furosemide Inj 10 Mg/Ml 4ml Vial IVP 02/04/24 13:59 40 mg TID KARY Administration Gabapentin 300 mg 01/03/24 21:00 01/08/24 20:58 Gabapentin 300 Mg Capsule PO 02/02/24 20:59 300 mg HS KARY Administration Glucagon 1 mg 12/30/23 21:05 Glucagon Inj 1 Mg Vial IM Q15MIN PRN BG <70, and no IV access Heparin Sodium (Porcine) 3,300 unit 01/06/24 14:56 01/07/24 11:09 Heparin Sod Inj 1000 Unit/Ml Vial 10 Ml INDWELLCAT 01/20/24 14:55 3,300 unit PRN PRN Administration DIALYSIS Hydralazine HCl 25 mg 12/31/23 09:00 01/09/24 06:10 Hydralazine Hcl 25 Mg Tablet PO 01/30/24 08:59 25 mg TID KARY Administration Hydroxyzine HCl 25 mg 01/02/24 11:12 01/08/24 22:13 Hydroxyzine Hcl 25 Mg Tablet PO 01/30/24 00:06 25 mg HS PRN Administration insomnia Insulin Human Lispro 0 unit 01/07/24 07:30 01/09/24 12:19 Insulin Lispro (Admelog) 1 Unit/0.01 Ml Unit SC 02/06/24 07:29 2 unit ACHS KARY Administration Protocol Lisinopril 20 mg 01/08/24 09:15 01/09/24 08:38 Lisinopril 20 Mg Tablet PO 02/07/24 09:14 20 mg QDAY KARY Administration Metoclopramide HCl 5 mg 01/02/24 20:15 01/09/24 12:20 Metoclopramide Inj 5 Mg/Ml Vial 2 Ml IVP 02/01/24 20:14 5 mg Q6HR KARY Administration Protocol Ondansetron HCl 4 mg 12/30/23 20:52 Ondansetron Inj 2 Mg/Ml Inj 2 Ml IV 01/29/24 20:51 Q6H PRN NAUSEA OR VOMITING Protocol Oxycodone/Acetaminophen 1 tab 01/09/24 09:52 Oxycodone/Apap 5/325 Tablet PO 01/14/24 09:51 Q6HR PRN PAIN SCALE 4-10(Mod-Sev Pantoprazole Sodium 40 mg 01/07/24 09:00 01/09/24 08:38 Pantoprazole 40 Mg Tablet PO 02/06/24 08:59 40 mg QDAY KARY Administration Polyethylene Glycol 17 gm 01/09/24 11:00 01/09/24 12:19 Polyethylene Glycol 17 Gm Packet PO 02/08/24 10:59 17 gm QDAY KARY Administration Sennosides 1 tab 12/31/23 09:00 01/09/24 08:38 Senna Tablet PO 01/30/24 08:59 1 tab QDAY KARY Administration Protocol Sevelamer Carbonate 800 mg 12/31/23 17:30 01/09/24 12:20 Sevelamer Carbonate 800 Mg Tablet PO 01/30/24 17:29 800 mg TIDWM KARY Administration Zinc Sulfate 220 mg 01/02/24 09:00 01/09/24 08:37 Zinc Sulfate 220 Mg Capsule PO 02/01/24 08:59 220 mg QDAY KARY Administration Plan 48-year-old female with past medical history of type 2 diabetes mellitus (insulin-dependent), hypertension, kidney cancer status post partial nephrectomy, and history of right foot osteomyelitis status post debridement and amputations. Found to be septic with HR 104, WBC elevated, Cr at 3.0. Admitted for CHF and left great toe osteomyelitis work-up and management. Ultrasound- guided thoracentesis showed small bilateral perfusion, no drainage done.Found to have low hemoglobin at 7.1. On 01/03/2024, 1 unit packed red blood cells transfused. GI was consulted, status post EGD, s/p colonoscopy showed hemorrhoids and diverticulosis, no acute bleeding. S/p Dialysis catheter placement, now on scheduled dialysis per stereo operator. #New onset ESRD on dialysis #Nephrotic syndrome #Renal cell carinoma Elevated creatinine/low GFR currently worsening in setting of nephrotic syndrome, requiring dialysis. Renal ultrasound showed: Right kidney 12.3 x 7.2 x 7.1 cm cortex 2.2 cm. Right kidney 11.8 x 6.2 x 5.7 cm cortex 2.3 cm. No hydronephrosis or renal calculi. Bladder prevoid volume 2 87 cc unable to void. Urine random total protein 382. Urine random creatinine 23. Urine random sodium 96. Creatinine increased from 2.9 to 3.2, GFR 19. Considering patient's worsening kidney function, she is now on dialysis started during this hospitalization. Plan: -Nephrology on board; recommends increase bed to chair time. -Pending chair time for outpatient dialysis. -Continue inpatient dialysis per schedule -Follow-up renal panel -Avoid nephrotoxic agents #Mildly compensated congestive heart failure, resolving #HFpEF EF 60 to 65% Most likely secondary to hypertension and obesity Patient presented with shortness of breath,orthopnea,and PND, requiring oxygen. Oxygen requirement is stable at 4L/min. Lower extremity edema 1+ on left lower extremity, improving. Chest x-ray showed mild chronic heart failure, prominent vascular congestion. Suspect hypertension and obesity led to patient's heart failure, currently heart failure is moderately compensated with aggressive diuresis. Patient continues to have good urine output. Possible cardiorenal considering hx of renal cell carcinoma with subsequent heart failure. Echo 06/22/2023: EF 60-65%, trace MR, AR, and mild TR. BNP mildly elevated at 165, troponin negative. NYHA class III. Echo: Normal LV size and function. Estimated EF 60-65%. Mild LVH. Diatsolic dysfunction stage 1 Normal RV size and function. Mild MR, TR. There is a small circumferential pericardial effusion. No evidence of cardiac tamponade. Plan: -Lasix 40 mg IV three times daily, per nephrology recc's -Fluid restriction (1.2 L), daily weight checks, Strict I & O -CMP in am #Diverticulosis #Hemorrhoids #Gastritis #Esophagitis #Nonerosive lesion at GE junction #Normocytic anemia #Status post EGD 01/02/24 #S/p colonoscopy 01/05/2024 Patient suffers from constipation. She has never had a colonoscopy. Denies dizziness or generalized weakness. EGD 01/01 showed gastritis, esophagitis, nonerosive lesions at the GE junction.No bleeding source. Colonoscopy 03/06/2023 showed hemorrhoids and diverticulosis in the sigmoid and the descending colon. No bleeding. Cannot rule out colon cancer in setting renal cell carcinoma hx, requires pathology report. Stool negative for WBCs. Ferritin normal limits. Plan: -Gastroenterology consulted, recommends high-fiber diet and outpatient follow-up with gastroenterology clinic in 2 weeks -Monitor CBC #Osteomyelitis, left great toe #History of osteomyelitis, right foot #S/p left 1st metatarsal amputation on 01/01/2024-Post op day 8 Patient presented with pain in the left foot, found to have left great toe OM, requiring amputation. XR and MRI of the left foot showed osteomyelitis of the proximal and distal phalanges first digit. Distal metatarsal head division and transmetatarsal amputation performed by general surgeon. Blood culture prelim negative x2. Wound culture does not seem to have been collected during amputation. Plan: -Infectious disease was consulted; recommended oral antibiotics for a few days (4-5d) after amputation--completed -General surgery consulted; amputated transmetatarsal, Day 8 -Pain: norco 7.5/325 and dilaudid .75 IV push every 3 hours -Wound care Antimicrobials: Keflex 500 mg every 8 hours (01/03/2024- 01/07/2024). Doxycycline 100 mg IV BID (12/29-12/31) and Ceftriaxone 2gm daily (12/31/2023- 01/01/24). #Hypertension Chronic, uncontrolled BP is elevated >150 SBP. Her elevated blood pressure is likely secondary to pain. Plan: -Lisinopril 10mg daily increased to 20 mg and Coreg 25mg BID WM -Continue Amlodipine 10 mg daily and Hydralazine 25 mg TID oral #Type 2 diabetes mellitus, insulin-dependent (A1c 9.7%) #Obesity Chronic, uncontrolled Glucose is currently controlled. Patient home lantus 30 units daily. Plan: -SSI lispro -Bedside glucose checks -Hypoglycemic protocol #Diabetic neuropathy Hx of Diabetic neuropathy on gabapentin. ?Gabapentin 300 mg orally daily. #Hypertriglyceridemia Secondary to obesity Triglycerides 156, cholesterol 146, LDL 69, HDL 47 Plan: -F/up outpatient #Elevated Alkaline phosphatase Possibly 2/2 cancer and possible mets Alkaline phosphatase 527. #Polysubstance use Patient has a history of methamphetamine and marijuana use. She states that she uses methamphetamines once weekly and marijuana daily. U tox positive for opiates, thiamine, marijuana. -F/up outpatient #Sepsis -resolved #Hyperkalemia, resolved #Hyperphosphatemia- resolved #Metabolic acidosis, resolved #Mild transaminitis-resolved #Hyperchloremia, resolved #Hypertensive urgency, resolved #B/L Pleural effusion, resolved DVT prophylaxis: Heparin SC GI prophylaxis: Pantoprazole 40 mg PO daily Diet: Clear Liquid Lines: Peripheral IV Code status: Full Code Discussed case with my attending Dr. Juarez and senior Andres Crump, PGY-3. Victorino Garvey PGY1 Attending Provider Attestation/Addendum I have discussed and was present for the essential components of the history, physical examination, diagnosis, and treatment plan with the resident. I agree with the patient's care as documented by the resident and amended herein by me. Sebastian Juarez, DO. Although this document has been carefully reviewed, there may still be some phonetic and other typographical errors. These errors are purely grammatical due to imperfections in the software program and should not be construed in any way to compromise the substance of the patient's medical care during this visit.
--- NOTE | 2024-01-09 12:59 | ESPR_ITS ---
Documentation for date of: 01/09/24 Subjective Subjective Interval history: Hemoglobin hematocrit 9.0 and 28.3 No signs of any active bleeding Exam Vital Signs Temp Pulse Resp BP Pulse Ox O2 Del Method O2 Flow Rate 97.0 F 74 17 139/62 H 94 L Room Air 2 01/09/24 12:00 01/09/24 12:00 01/09/24 12:00 01/09/24 12:00 01/09/24 12:00 01/09/24 12:00 01/09/24 08:53 Objective Labs 01/09/24 05:05 01/09/24 05:05 Labs: Laboratory Results - last 24 hr 01/09/24 05:05 WBC 11.8 H RBC 3.05 L Hgb 9.0 L Hct 28.3 L MCV 93 MCH 29.5 MCHC 31.8 RDW Std Deviation 45.6 Plt Count 335 Neut % (Auto) 71 Lymph % (Auto) 14 [place] % (Auto) 10 Eos % (Auto) 1 Baso % (Auto) 1 Neut # (Auto) 8.4 H Lymph # (Auto) 1.7 [place] # (Auto) 1.2 H Eos # (Auto) 0.2 Baso # (Auto) 0.1 Immature Gran # (Auto) 0.36 H Absolute Nucleated RBC 0.00 Immature Gran % 3 H Nucleated RBC % 0 Sodium 138 Potassium 3.9 Chloride 103 Carbon Dioxide 27.4 Anion Gap 8 BUN 39 H Creatinine 3.4 H Estim Creat Clear Calc 23.4 L eGFR 16 L BUN/Creatinine Ratio 11 L Glucose 161 H Calculated Osmolality 288 Calcium 9.0 Corrected Calcium 9.2 Total Bilirubin 0.2 L AST 11 ALT 28 Alkaline Phosphatase 459 H D Total Protein 6.9 Albumin 3.7 Globulin 3.2 Albumin/Globulin Ratio 1.2 Impressions Impression: # Gastritis hemorrhagic # Diverticulosis left colon # Posthemorrhagic anemia Continue current management Assessment & Plan A&P 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 f/u with outpt primary, I can not see in clinic. backlog too great. 3 mo in most cases Time Spent With Patient Time: Total time spent is greater than 50% in coordination of care (as documented) at patient's floor/unit and/or counseling patient:
--- NOTE | 2024-01-09 15:51 | PC.SS ---
SS spoke to [place] [phone] [facility] Plan who transferred call to Huber [phone] from [facility] they are not Medical who is aware pt is requiring hemo dialysis and [facility] in [place] is attempting to obtain insurance authorization. Pt spoke to Huber and gave permission for him to speak with SS. SS provided him with SS contact information.
[2024-01-09] MEDS: oxyCODONE/APAP 5/325 TABLET 1 TAB PO ×2 (16:59→23:03)
[2024-01-09] MEDS: GABAPENTIN 300 MG CAPSULE PO (20:10)
[2024-01-09] MEDS: HEPARIN SOD INJ 5000 UNIT/ML VIAL SC (20:10)
[2024-01-09] MEDS: LORazepam 2 MG/ML VIAL 1 MG IVP (23:48)
[2024-01-10] VITALS (26 sets, daily range): BP systolic 134–173; BP diastolic 61–85; PULSE 63–79; RESP 16–20; TEMP 36.5–37; O2SAT 93–98; BMI 38.5
--- NOTE | 2024-01-10 00:05 | PC.NURSE ---
Pt O2 is at 86 on Room Air while pt is asleep. Informed the pt that her O2 is low. Put the pt on 2L NC and O2 went back up to 96.
[2024-01-10] MEDS: METOCLOPRAMIDE INJ 5 MG/ML VIAL 2 ML IVP ×3 (05:30→17:27)
[2024-01-10] MEDS: hydrALAZINE HCL 25 MG TABLET PO ×3 (05:31→21:52)
[2024-01-10] MEDS: FUROSEMIDE INJ 10 MG/ML 4ML VIAL 40 MG IVP ×3 (05:31→21:53)
[2024-01-10 06:34] LABS: Basophils # (Auto) 0.1 Thou/mm3 (0.0-0.2); Basophils % (Auto) 1 % (0-2.5); Eosinophils # (Auto) 0.2 Thou/mm3 (0.0-0.5); Eosinophils % (Auto) 2 % (0-10); Hematocrit 27.3 % (36.0-46.0); Immature Granulocytes % (Auto) 3 % (0-0); Immature Granulocytes Auto 0.39 Thou/mm3 (0.00-0.00); Lymphocytes # (Auto) 1.9 Thou/mm3 (1.0-4.8); Lymphocytes % (Auto) 17 % (10-50); Mean Corpuscular HGB Conc 31.9 g/dl (31.0-37.0); Mean Corpuscular Hemoglobin 29.5 pg (25.0-35.0); Mean Corpuscular Volume 93 fL (80-100); Monocytes # (Auto) 1.2 Thou/mm3 (0.0-0.8); Monocytes % (Auto) 10 % (0-12); Neutrophils # (Auto) 7.8 Thou/mm3 (1.8-7.7); Neutrophils % (Auto) 67 % (37-80); Nucleated Red Blood Cell % 0 /100 WBC (0); Platelet Count 298 Thou/mm3 (140-440); RDW Standard Deviation 46.4 fL (36.4-46.3); Red Blood Count 2.95 Miln/mm3 (4.00-5.20); White Blood Count 11.5 Thou/mm3 (3.6-11.0)
[2024-01-10 06:36] LABS: Hemoglobin 8.7 g/dL (12.0-16.0)
[2024-01-10 06:58] LABS: Alanine Aminotransferase 19 U/L (10-49); Albumin, Serum 3.5 gm/dL (3.5-5.0); Albumin/Globulin Ratio 1.2 (1.2-2.2); Alkaline Phosphatase 379 U/L (46-116); Anion Gap 6 (7-16); Aspartate Amino Transferase 14 U/L (0-34); BUN/Creatinine Ratio 10 Ratio (12-20); Bilirubin,Total 0.2 mg/dL (0.3-1.2); Blood Urea Nitrogen 35 mg/dL (9-23); Calcium 8.7 mg/dL (8.3-10.6); Calcium (Corrected) 9.1 mg/dL (8.5-10.1); Carbon Dioxide 26.1 mMol/L (20.0-31.0); Chloride 104 mMol/L (98-107); Creatinine (Component) 3.4 mg/dL (0.6-1.3); Estimated Creatinine Clearance 23.4 mL/min (>60); Globulin 2.9 gm/dL (2.3-3.5); Glucose 159 mg/dL (74-106); Osmolality,Calculated 282 (275-295); Potassium 4.1 mMol/L (3.4-5.1); Sodium 136 mMol/L (136-145); Total Protein 6.4 gm/dL (5.7-8.2); eGFR 16 See Note
--- NOTE | 2024-01-10 08:00 | PC.NURSE ---
PT WAS SLEEPING ON RA AND SPO2 WENT DOWN TO 82%, PT WAS PLACED BACK ON O2 @ 5L/M TO BRING SPO2 UP TO 96%.
[2024-01-10] MEDS: SEVELAMER CARBONATE 800 MG TABLET PO ×3 (08:08→17:27)
[2024-01-10] MEDS: HEPARIN SOD INJ 5000 UNIT/ML VIAL SC ×2 (08:09→20:24)
[2024-01-10] MEDS: INSULIN LISPRO (AdmeLOG) 1 UNIT/0.01 ML UNIT SC ×4 (08:10→20:25)
[2024-01-10] MEDS: POLYETHYLENE GLYCOL 17 GM PACKET PO (08:22)
--- NOTE | 2024-01-10 08:40 | PC.NURSE ---
Pt C/O anxiety, checking with Wendy to see status
[2024-01-10] MEDS: DiphenhydrAMINE 25 MG CAPSULE PO ×2 (09:02→20:38)
--- NOTE | 2024-01-10 12:15 | ESPR_ITS ---
<Statement entered by Andres Crump MD - 01/10/24 17:55> Senior Resident Attestation: I supervised/discussed management plan with resident physician Dr. Garvey, and was involved in the care of this patient. I personally saw and examined the patient and discussed the assessment and plan with the entire medicine team, including my attending. I agree with the assessment and plan as documented. Patient's care was discussed with attending physician, Dr. Larry Crump MD PGY-3 Documentation for date of: 01/10/24 Subjective Subjective Interval history: Patient seen at bedside. Patient's status post dialysis treatment. Patient is pending chair time for placement. Will continue to monitor patient. Exam Vital Signs Temp Pulse Resp BP Pulse Ox O2 Del Method O2 Flow Rate 98.6 F 63 18 149/67 H 98 Nasal Cannula 3 01/10/24 11:41 01/10/24 11:52 01/10/24 11:41 01/10/24 11:52 01/10/24 11:41 01/10/24 07:54 01/10/24 11:41 Narrative Exam Constitutional: obese, well-developed, legally blind female. HEENT: NCAT, reactive round pupils b/l, saturating at on 2 L NC. Lung: CTAB, no wheezing, no rhonchi, no crackles. Heart: Regular S1S2, no murmurs. Abdomen: Soft, non-tender, Normoactive bowel sounds. Extremities: No cyanosis, No upper extremity edema. 1+ nonpitting edema b/l lower extremities, improving. Wound gauze wrapped around left foot s/p amputation of great toe. Right 3rd through 4th digits amputated. Neurologic: Generally alert and oriented to person, place, time. Skin: Warm, dry. Objective Labs 01/10/24 05:50 01/10/24 05:50 Labs: Laboratory Results - last 24 hr 01/10/24 05:50 WBC 11.5 H RBC 2.95 L Hgb 8.7 L Hct 27.3 L MCV 93 MCH 29.5 MCHC 31.9 RDW Std Deviation 46.4 H Plt Count 298 D Neut % (Auto) 67 Lymph % (Auto) 17 [place] % (Auto) 10 Eos % (Auto) 2 Baso % (Auto) 1 Neut # (Auto) 7.8 H Lymph # (Auto) 1.9 [place] # (Auto) 1.2 H Eos # (Auto) 0.2 Baso # (Auto) 0.1 Immature Gran # (Auto) 0.39 H Absolute Nucleated RBC 0.00 Immature Gran % 3 H Nucleated RBC % 0 Sodium 136 Potassium 4.1 Chloride 104 Carbon Dioxide 26.1 Anion Gap 6 L BUN 35 H Creatinine 3.4 H Estim Creat Clear Calc 23.4 L eGFR 16 L BUN/Creatinine Ratio 10 L Glucose 159 H Calculated Osmolality 282 Calcium 8.7 Corrected Calcium 9.1 Total Bilirubin 0.2 L AST 14 ALT 19 Alkaline Phosphatase 379 H D Total Protein 6.4 Albumin 3.5 Globulin 2.9 Albumin/Globulin Ratio 1.2 Quality Measures Quality Measures VTE prophylaxis Assessment & Plan Assessment Current Active Medications: Generic Name Dose Route Start Last Admin Trade Name Freq PRN Reason Stop Dose Admin Acetaminophen 650 mg 01/01/24 08:16 01/03/24 13:28 Acetaminophen 325 Mg Tablet PO 01/29/24 20:51 650 mg Q6H PRN Administration MILD PAIN (1-3) OR FEVER > 101 Amlodipine Besylate 10 mg 12/31/23 09:00 01/10/24 08:22 Amlodipine Besylate 5 Mg Tablet PO 01/30/24 08:59 Not Given QDAY KARY Ascorbic Acid 500 mg 01/01/24 21:00 01/10/24 08:22 Ascorbic Acid 250 Mg Tablet PO 01/31/24 20:59 Not Given BID KARY Carvedilol 25 mg 01/02/24 17:30 01/10/24 08:21 Carvedilol 12.5 Mg Tablet PO 02/01/24 17:29 Not Given BIDWM KARY Dextrose 25 ml 12/30/23 21:05 Dextrose 50%-Water Inj 50 Ml Syringe IV 01/29/24 21:04 Q15MIN PRN BG 50-70 responsive npo pt Dextrose 50 ml 12/30/23 21:05 Dextrose 50%-Water Inj 50 Ml Syringe IV 01/29/24 21:04 Q15MIN PRN BG <50 OR BG <70 & pt unresponsive Diphenhydramine HCl 25 mg 01/03/24 22:21 01/10/24 09:02 Diphenhydramine 25 Mg Capsule PO 02/02/24 22:20 25 mg Q6HR PRN Administration Allergic Symptoms Furosemide 40 mg 01/05/24 14:00 01/10/24 05:31 Furosemide Inj 10 Mg/Ml 4ml Vial IVP 02/04/24 13:59 40 mg TID KARY Administration Gabapentin 300 mg 01/03/24 21:00 01/09/24 20:10 Gabapentin 300 Mg Capsule PO 02/02/24 20:59 300 mg HS KARY Administration Glucagon 1 mg 12/30/23 21:05 Glucagon Inj 1 Mg Vial IM Q15MIN PRN BG <70, and no IV access Heparin Sodium (Porcine) 3,300 unit 01/06/24 14:56 01/07/24 11:09 Heparin Sod Inj 1000 Unit/Ml Vial 10 Ml INDWELLCAT 01/20/24 14:55 3,300 unit PRN PRN Administration DIALYSIS Heparin Sodium (Porcine) 5,000 unit 01/09/24 21:00 01/10/24 08:09 Heparin Sod Inj 5000 Unit/Ml Vial SC 01/23/24 20:59 5,000 unit BID KARY Administration Hydralazine HCl 25 mg 12/31/23 09:00 01/10/24 05:31 Hydralazine Hcl 25 Mg Tablet PO 01/30/24 08:59 25 mg TID KARY Administration Hydroxyzine HCl 25 mg 01/02/24 11:12 01/08/24 22:13 Hydroxyzine Hcl 25 Mg Tablet PO 01/30/24 00:06 25 mg HS PRN Administration insomnia Insulin Human Lispro 0 unit 01/07/24 07:30 01/10/24 08:10 Insulin Lispro (Admelog) 1 Unit/0.01 Ml Unit SC 02/06/24 07:29 1 unit ACHS KARY Administration Protocol Lisinopril 20 mg 01/08/24 09:15 01/10/24 08:22 Lisinopril 20 Mg Tablet PO 02/07/24 09:14 Not Given QDAY [facility] Metoclopramide HCl 5 mg 01/02/24 20:15 01/10/24 05:30 Metoclopramide Inj 5 Mg/Ml Vial 2 Ml IVP 02/01/24 20:14 5 mg Q6HR KARY Administration Protocol Ondansetron HCl 4 mg 12/30/23 20:52 Ondansetron Inj 2 Mg/Ml Inj 2 Ml IV 01/29/24 20:51 Q6H PRN NAUSEA OR VOMITING Protocol Oxycodone/Acetaminophen 1 tab 01/09/24 09:52 01/09/24 23:03 Oxycodone/Apap 5/325 Tablet PO 01/14/24 09:51 1 tab Q6HR PRN Administration PAIN SCALE 4-10(Mod-Sev Pantoprazole Sodium 40 mg 01/07/24 09:00 01/10/24 08:21 Pantoprazole 40 Mg Tablet PO 02/06/24 08:59 Not Given QDAY KARY Polyethylene Glycol 17 gm 01/09/24 11:00 01/10/24 08:22 Polyethylene Glycol 17 Gm Packet PO 02/08/24 10:59 17 gm QDAY KARY Administration Sennosides 1 tab 12/31/23 09:00 01/10/24 08:21 Senna Tablet PO 01/30/24 08:59 Not Given QDAY KARY Protocol Sevelamer Carbonate 800 mg 12/31/23 17:30 01/10/24 08:08 Sevelamer Carbonate 800 Mg Tablet PO 01/30/24 17:29 800 mg TIDWM KARY Administration Zinc Sulfate 220 mg 01/02/24 09:00 01/10/24 08:21 Zinc Sulfate 220 Mg Capsule PO 02/01/24 08:59 Not Given QDAY KARY Plan Assessment and plan Summary 48-year-old female with past medical history of type 2 diabetes mellitus (insulin-dependent), hypertension, kidney cancer status post partial nephrectomy, and history of right foot osteomyelitis status post debridement and amputations. Found to be septic with HR 104, WBC elevated, Cr at 3.0. Admitted for CHF and left great toe osteomyelitis work-up and management. Ultrasound- guided thoracentesis showed small bilateral perfusion, no drainage done.Found to have low hemoglobin at 7.1. On 01/03/2024, 1 unit packed red blood cells transfused. GI was consulted, status post EGD, s/p colonoscopy showed hemorrhoids and diverticulosis, no acute bleeding. S/p Dialysis catheter placement, now on scheduled dialysis per territory sales manager. Patient is pending outpatient chair time. #New onset ESRD on dialysis #Nephrotic syndrome #Renal cell carinoma Elevated creatinine/low GFR currently worsening in setting of nephrotic syndrome, requiring dialysis. Renal ultrasound showed: Right kidney 12.3 x 7.2 x 7.1 cm cortex 2.2 cm. Right kidney 11.8 x 6.2 x 5.7 cm cortex 2.3 cm. No hydronephrosis or renal calculi. Bladder prevoid volume 2 87 cc unable to void. Urine random total protein 382. Urine random creatinine 23. Urine random sodium 96. Creatinine increased from 2.9 to 3.2, GFR 19. Considering patient's worsening kidney function, she is now on dialysis started during this hospitalization. Plan: -Nephrology on board; recommends increase bed to chair time. -Pending chair time for outpatient dialysis. -Continue inpatient dialysis per schedule -Follow-up renal panel -Avoid nephrotoxic agents #CHF exacerbation, resolved #HFpEF EF 60 to 65% Most likely secondary to hypertension and obesity Patient presented with shortness of breath,orthopnea,and PND, requiring oxygen. Oxygen requirement is stable at 4L/min. Lower extremity edema 1+ on left lower extremity, improving. Chest x-ray showed mild chronic heart failure, prominent vascular congestion. Suspect hypertension and obesity led to patient's heart failure, currently heart failure is moderately compensated with aggressive diuresis. Patient continues to have good urine output. Possible cardiorenal considering hx of renal cell carcinoma with subsequent heart failure. Echo 06/22/2023: EF 60-65%, trace MR, AR, and mild TR. BNP mildly elevated at 165, troponin negative. NYHA class III. Echo: Normal LV size and function. Estimated EF 60-65%. Mild LVH. Diatsolic dysfunction stage 1 Normal RV size and function. Mild MR, TR. There is a small circumferential pericardial effusion. No evidence of cardiac tamponade. Plan: -Lasix 40 mg IV three times daily, per nephrology recc's -Fluid restriction (1.2 L), daily weight checks, Strict I & O -CMP in am #Diverticulosis #Hemorrhoids #Gastritis #Esophagitis #Nonerosive lesion at GE junction #Normocytic anemia #Status post EGD 01/02/24 #S/p colonoscopy 01/05/2024 Patient suffers from constipation. She has never had a colonoscopy. Denies dizziness or generalized weakness. EGD 01/01 showed gastritis, esophagitis, nonerosive lesions at the GE junction.No bleeding source. Colonoscopy 03/06/2023 showed hemorrhoids and diverticulosis in the sigmoid and the descending colon. No bleeding. Cannot rule out colon cancer in setting renal cell carcinoma hx, requires pathology report. Stool negative for WBCs. Ferritin normal limits. Plan: -Gastroenterology consulted, recommends high-fiber diet and outpatient follow-up with gastroenterology clinic in 2 weeks -Monitor CBC #Osteomyelitis, left great toe #History of osteomyelitis, right foot #S/p left 1st metatarsal amputation on 01/01/2024 Patient presented with pain in the left foot, found to have left great toe OM, requiring amputation. XR and MRI of the left foot showed osteomyelitis of the proximal and distal phalanges first digit. Distal metatarsal head division and transmetatarsal amputation performed by general surgeon. Blood culture prelim negative x2. Wound culture does not seem to have been collected during amputation. Plan: -Infectious disease was consulted; recommended oral antibiotics for a few days (4-5d) after amputation--completed -General surgery consulted; appreciate recommendations -Pain: Oxycodone -Wound care Antimicrobials: Keflex 500 mg every 8 hours (01/03/2024- 01/07/2024). Doxycycline 100 mg IV BID (12/29-12/31) and Ceftriaxone 2gm daily (12/31/2023- 01/01/24). #Hypertension Chronic, uncontrolled BP is elevated >150 SBP. Her elevated blood pressure is likely secondary to pain. Plan: -Lisinopril 10mg daily increased to 20 mg and Coreg 25mg BID WM -Continue Amlodipine 10 mg daily and Hydralazine 25 mg TID oral #Type 2 diabetes mellitus, insulin-dependent (A1c 9.7%) #Obesity Chronic, uncontrolled Glucose is currently controlled. Patient home lantus 30 units daily. Plan: -SSI lispro -Bedside glucose checks -Hypoglycemic protocol #Diabetic neuropathy Hx of Diabetic neuropathy on gabapentin. ?Gabapentin 300 mg orally daily. #Hypertriglyceridemia Secondary to obesity Triglycerides 156, cholesterol 146, LDL 69, HDL 47 Plan: -F/up outpatient #Elevated Alkaline phosphatase Possibly 2/2 cancer and possible mets Alkaline phosphatase 527. #Polysubstance use Patient has a history of methamphetamine and marijuana use. She states that she uses methamphetamines once weekly and marijuana daily. U tox positive for opiates, thiamine, marijuana. -F/up outpatient #Sepsis -resolved #Hyperkalemia, resolved #Hyperphosphatemia- resolved #Metabolic acidosis, resolved #Mild transaminitis-resolved #Hyperchloremia, resolved #Hypertensive urgency, resolved #B/L Pleural effusion, resolved DVT prophylaxis: Heparin SC GI prophylaxis: Pantoprazole 40 mg PO daily Diet: Clear Liquid Lines: Peripheral IV Code status: Full Code Discussed case with my attending Dr. Juarez and senior Andres Crump, PGY-3. Victorino Garvey PGY1 Attending Provider Attestation/Addendum I have discussed and was present for the essential components of the history, physical examination, diagnosis, and treatment plan with the resident. I agree with the patient's care as documented by the resident and amended herein by me. Sebastian Juarez, DO. Discharge pending dialysis chair, Corral catheter removed, patient doing well. Although this document has been carefully reviewed, there may still be some phonetic and other typographical errors. These errors are purely grammatical due to imperfections in the software program and should not be construed in any way to compromise the substance of the patient's medical care during this visit.
[2024-01-10] MEDS: ASCORBIC ACID 250 MG TABLET 500 MG PO ×2 (12:18→20:24)
[2024-01-10] MEDS: Lisinopril 20 MG TABLET PO (12:18)
[2024-01-10] MEDS: PANTOPRAZOLE 40 MG TABLET PO (12:18)
[2024-01-10] MEDS: ZINC SULFATE 220 MG CAPSULE PO (12:19)
[2024-01-10] MEDS: SENNA TABLET 1 TAB PO (12:19)
--- NOTE | 2024-01-10 12:20 | ESPR_ITS ---
Documentation for date of: 01/10/24 Subjective Subjective Interval history: Ms. Costa is a 48 y/o F with PMHx significant for type 2 diabetes mellitus (insulin-dependent), hypertension, kidney cancer status post partial nephrectomy, and history of right foot osteomyelitis status post debridement and amputations now presents with shortness of breath and left great toe pain. Patient states that she has been short of breath for last couple of days, endorsing orthopnea and PND with associated bilateral lower extremity edema, bilateral upper extremity edema, and swelling around the eyes and tongue. She denies chest pain, pressure, and tightness. Also reports pain in left great toe initially with purulent drainage, now with serosanguineous material on bed sheets in ED. Denies fever and chills but endorses sweats. Otherwise denies dysuria, hematuria, or foul-smelling urine. Labs at time of admission showed BUN 48 (baseline 19?22), Automatic Profile Shaper Operator 3.0 (baseline 1.5), GFR 18. Chest x-ray showed heart failure pattern, bibasilar pneumonia, moderate left and large right pleural effusions. X-ray of left foot showed significant osteo of distal phalanx of first digit. Patient admitted for CHF exacerbation and left toe osteomyelitis. Nephrology was consulted due to KIM on CKD. Patient seen in ED resting in bed. Patient had bilateral lower extremity edema, worse than usual per patient. Lungs clear to auscultation, poor lung sounds due to body habitus. Labs at time of exam showed sodium 136, potassium 5.5, bicarb 16.3, BUN 51, creatinine 3.0, eGFR 18. Plan for additional diuretics, suspect cardiorenal syndrome due to fluid overload state. 12/31: Patient seen resting comfortably in bed. Patient has lower extremity edema, mildly improved. Lungs clear to auscultation, poor lung sounds due to body habitus. Sodium 138, potassium 4.3, bicarb 20.1, BUN 55, creatinine 2.4, eGFR 16. Plan for amputation of left great toe later today. 01/05/2024 patient currently seen in medical floor. She is blind from diabetic retinopathy. She has severe progressive diabetic nephropathy with nephrotic range proteinuria and nephrotic syndrome with significant anasarca. On diuretics. GFR declining. Had a long conversation with patient regarding renal replacement therapy as her GFR is less than 15 and she agreed for dialysis if indicated. Currently on diuretics. Cannot give any fluids due to anasarca. Labs, medications reviewed. Will proceed with dialysis in a.m. Patient complaining of significant edema. Will increase the Lasix to 3 times daily. Plan of care discussed with primary team 01/05: Patient seen and examined at bedside. Patient appeared agitated, complained of generalized feeling of malaise. Patient given 1 mg Ativan IV push. Patient still shows anasarca on exam. 1.2 L in, 2.0 L out over past 24 hours. Labs showed some improvement: BUN 50, creatinine 2.6, eGFR 15. Plan for hemodialysis today. 01/06: Patient seen and examined during dialysis. Patient is resting comfortably, denies anxiety, chest pain, shortness of breath. 0.7 L in, 4.1 L out over past 24 hours labs continue to improve: BUN 36, creatinine 2.9, eGFR 19. 01/07: Patient seen and examined during dialysis. Patient complains of anxiety, will give 0.5 mg Ativan x 1. Denies chest pain shortness of breath. BUN 35, creatinine 3.2, eGFR 17. 01/08: Patient seen and examined on the floors. Patient complains of mild anxiety. Denies shortness of breath or chest pain. 1.8 L urine output. BUN 39, creatinine 3.4, eGFR 16. No plans for dialysis today. Corral catheter discontinued. Recommend increase bed to chair time. Attempting to arrange outpatient dialysis for patient, limited by patient's insurance. 01/09: Patient seen and examined during dialysis. Patient appears lethargic. Patient denies anxiety, shortness of breath, chest pain. 1.2 L output, 0.4 L output. BUN 35, creatinine 3.4, eGFR 16. Patient pending outpatient dialysis arrangement. Exam Vital Signs Temp Pulse Resp BP Pulse Ox O2 Del Method O2 Flow Rate 98.6 F 63 18 149/67 H 98 Nasal Cannula 3 01/10/24 11:41 01/10/24 11:52 01/10/24 11:41 01/10/24 11:52 01/10/24 11:41 01/10/24 07:54 01/10/24 11:41 Narrative Exam GENERAL APPEARANCE: Patient appears mildly anxious. HEENT: Patient blind CARDIOVASCULAR: Heart regular, no murmurs LUNGS/CHEST: Chest clear to auscultation. No rales, rhonchi, wheezing ABDOMEN: Soft, nontender, nondistended. No masses. Normal bowel sounds. EXTREMITIES: Edema in the lower extremities, left greater than right. SKIN: Right 2 toes missing. Left great toe amputated MUSCULOSKELETAL: In bed NEUROLOGICAL : No neurological deficits Objective Labs 01/11/24 04:58 01/11/24 04:58 Labs: Laboratory Results - last 24 hr 01/10/24 05:50 WBC 11.5 H RBC 2.95 L Hgb 8.7 L Hct 27.3 L MCV 93 MCH 29.5 MCHC 31.9 RDW Std Deviation 46.4 H Plt Count 298 D Neut % (Auto) 67 Lymph % (Auto) 17 [place] % (Auto) 10 Eos % (Auto) 2 Baso % (Auto) 1 Neut # (Auto) 7.8 H Lymph # (Auto) 1.9 [place] # (Auto) 1.2 H Eos # (Auto) 0.2 Baso # (Auto) 0.1 Immature Gran # (Auto) 0.39 H Absolute Nucleated RBC 0.00 Immature Gran % 3 H Nucleated RBC % 0 Sodium 136 Potassium 4.1 Chloride 104 Carbon Dioxide 26.1 Anion Gap 6 L BUN 35 H Creatinine 3.4 H Estim Creat Clear Calc 23.4 L eGFR 16 L BUN/Creatinine Ratio 10 L Glucose 159 H Calculated Osmolality 282 Calcium 8.7 Corrected Calcium 9.1 Total Bilirubin 0.2 L AST 14 ALT 19 Alkaline Phosphatase 379 H D Total Protein 6.4 Albumin 3.5 Globulin 2.9 Albumin/Globulin Ratio 1.2 Quality Measures Quality Measures VTE prophylaxis Assessment & Plan Assessment Current Active Medications: Generic Name Dose Route Start Last Admin Trade Name Freq PRN Reason Stop Dose Admin Acetaminophen 650 mg 01/01/24 08:16 01/03/24 13:28 Acetaminophen 325 Mg Tablet PO 01/29/24 20:51 650 mg Q6H PRN Administration MILD PAIN (1-3) OR FEVER > 101 Amlodipine Besylate 10 mg 12/31/23 09:00 01/10/24 08:22 Amlodipine Besylate 5 Mg Tablet PO 01/30/24 08:59 Not Given QDAY [facility] Ascorbic Acid 500 mg 01/01/24 21:00 01/10/24 08:22 Ascorbic Acid 250 Mg Tablet PO 01/31/24 20:59 Not Given BID KARY Carvedilol 25 mg 01/02/24 17:30 01/10/24 08:21 Carvedilol 12.5 Mg Tablet PO 02/01/24 17:29 Not Given BIDWM KARY Dextrose 25 ml 12/30/23 21:05 Dextrose 50%-Water Inj 50 Ml Syringe IV 01/29/24 21:04 Q15MIN PRN BG 50-70 responsive npo pt Dextrose 50 ml 12/30/23 21:05 Dextrose 50%-Water Inj 50 Ml Syringe IV 01/29/24 21:04 Q15MIN PRN BG <50 OR BG <70 & pt unresponsive Diphenhydramine HCl 25 mg 01/03/24 22:21 01/10/24 09:02 Diphenhydramine 25 Mg Capsule PO 02/02/24 22:20 25 mg Q6HR PRN Administration Allergic Symptoms Furosemide 40 mg 01/05/24 14:00 01/10/24 05:31 Furosemide Inj 10 Mg/Ml 4ml Vial IVP 02/04/24 13:59 40 mg TID KARY Administration Gabapentin 300 mg 01/03/24 21:00 01/09/24 20:10 Gabapentin 300 Mg Capsule PO 02/02/24 20:59 300 mg HS KARY Administration Glucagon 1 mg 12/30/23 21:05 Glucagon Inj 1 Mg Vial IM Q15MIN PRN BG <70, and no IV access Heparin Sodium (Porcine) 3,300 unit 01/06/24 14:56 01/07/24 11:09 Heparin Sod Inj 1000 Unit/Ml Vial 10 Ml INDWELLCAT 01/20/24 14:55 3,300 unit PRN PRN Administration DIALYSIS Heparin Sodium (Porcine) 5,000 unit 01/09/24 21:00 01/10/24 08:09 Heparin Sod Inj 5000 Unit/Ml Vial SC 01/23/24 20:59 5,000 unit BID KARY Administration Hydralazine HCl 25 mg 12/31/23 09:00 01/10/24 05:31 Hydralazine Hcl 25 Mg Tablet PO 01/30/24 08:59 25 mg TID KARY Administration Hydroxyzine HCl 25 mg 01/02/24 11:12 01/08/24 22:13 Hydroxyzine Hcl 25 Mg Tablet PO 01/30/24 00:06 25 mg HS PRN Administration insomnia Insulin Human Lispro 0 unit 01/07/24 07:30 01/10/24 08:10 Insulin Lispro (Admelog) 1 Unit/0.01 Ml Unit SC 02/06/24 07:29 1 unit ACHS KARY Administration Protocol Lisinopril 20 mg 01/08/24 09:15 01/10/24 08:22 Lisinopril 20 Mg Tablet PO 02/07/24 09:14 Not Given QDAY KARY Metoclopramide HCl 5 mg 01/02/24 20:15 01/10/24 05:30 Metoclopramide Inj 5 Mg/Ml Vial 2 Ml IVP 02/01/24 20:14 5 mg Q6HR KARY Administration Protocol Ondansetron HCl 4 mg 12/30/23 20:52 Ondansetron Inj 2 Mg/Ml Inj 2 Ml IV 01/29/24 20:51 Q6H PRN NAUSEA OR VOMITING Protocol Oxycodone/Acetaminophen 1 tab 01/09/24 09:52 01/09/24 23:03 Oxycodone/Apap 5/325 Tablet PO 01/14/24 09:51 1 tab Q6HR PRN Administration PAIN SCALE 4-10(Mod-Sev Pantoprazole Sodium 40 mg 01/07/24 09:00 01/10/24 08:21 Pantoprazole 40 Mg Tablet PO 02/06/24 08:59 Not Given QDAY KARY Polyethylene Glycol 17 gm 01/09/24 11:00 01/10/24 08:22 Polyethylene Glycol 17 Gm Packet PO 02/08/24 10:59 17 gm QDAY KARY Administration Sennosides 1 tab 12/31/23 09:00 01/10/24 08:21 Senna Tablet PO 01/30/24 08:59 Not Given QDAY KARY Protocol Sevelamer Carbonate 800 mg 12/31/23 17:30 01/10/24 08:08 Sevelamer Carbonate 800 Mg Tablet PO 01/30/24 17:29 800 mg TIDWM KRAY Administration Zinc Sulfate 220 mg 01/02/24 09:00 01/10/24 08:21 Zinc Sulfate 220 Mg Capsule PO 02/01/24 08:59 Not Given QDAY KARY Plan Tati Costa is a 48-year-old female with past medical history of type 2 diabetes mellitus (insulin-dependent), hypertension, kidney cancer status post partial nephrectomy, and history of right foot osteomyelitis status post debridement and amputations admitted for CHF and left great toe osteomyelitis work-up and management. #Acute on chronic kidney injury #CKD stage IV #Nephrotic syndrome Patient presented with poor kidney function, BUN, creatinine elevated above baseline. Patient has history of CHF, appears to be in CHF exacerbation clinically based on reported symptoms of orthopnea, exam findings of bilateral lower extremity edema increased compared to baseline per patient. Renal ultrasound showed no hydronephrosis or renal stones. BLE mildly improved with diuresis. Urine protein/creatinine 16.6 g Had a long conversation with patient regarding progressive diabetic nephropathy, proteinuria, anasarca and significant fluid overload. On diuretics. Worsening renal function. GFR less than 15. Patient agreed for dialysis. Will plan on Friday. IR closed Friday. First dialysis session completed without incident. Patient has continued to tolerate dialysis well. Arranging outpatient dialysis, options limited by patient's insurance. Plan: -Dialysis today -Renally dose medications -Avoid nephrotoxic meds -Follow daily labs -Diuretics: Continue with Lasix daily -Arrange outpatient dialysis # ?New onset CHF//diabetic nephropathy #Anasarca #Osteomyelitis, left great toe #History of osteomyelitis, right foot #Type 2 diabetes mellitus, insulin-dependent #Hypertension #Hypertensive urgency Plan as per primary team Thank you for allowing me to participate in the care of this patient. Plan of care discussed with attending Dr. Moreland. Lane Kenney MD PGY-1 Attending Provider Attestation/Addendum Patient seen and examined with resident physician Dr. Kenney. Note reviewed, agree with findings and recommendations. Next dialysis scheduled for Friday.
[2024-01-10] MEDS: amLODIPine BESYLATE 5 MG TABLET 10 MG PO (12:27)
[2024-01-10] MEDS: oxyCODONE/APAP 5/325 TABLET 1 TAB PO ×2 (12:31→20:38)
[2024-01-10] MEDS: EPOETIN ALFA-EPBX INJ 10,000 UNIT/ML VIAL (ESRD) 10000 UNIT SC (12:46)
--- NOTE | 2024-01-10 15:29 | PD.IMPROG ---
Documentation for date of: 01/10/24 Subjective Subjective Interval history: Hemoglobin hematocrit 8.7 and 27.3 Patient underwent dialysis today Slight drop in hemoglobin hematocrit Exam Vital Signs Temp Pulse Resp BP Pulse Ox O2 Del Method O2 Flow Rate 98.6 F 71 17 134/61 H 98 Nasal Cannula 4 01/10/24 12:00 01/10/24 14:50 01/10/24 12:00 01/10/24 14:50 01/10/24 12:00 01/10/24 12:00 01/10/24 12:00 Objective Labs 01/10/24 05:50 01/10/24 05:50 Labs: Laboratory Results - last 24 hr 01/10/24 05:50 WBC 11.5 H RBC 2.95 L Hgb 8.7 L Hct 27.3 L MCV 93 MCH 29.5 MCHC 31.9 RDW Std Deviation 46.4 H Plt Count 298 D Neut % (Auto) 67 Lymph % (Auto) 17 [place] % (Auto) 10 Eos % (Auto) 2 Baso % (Auto) 1 Neut # (Auto) 7.8 H Lymph # (Auto) 1.9 [place] # (Auto) 1.2 H Eos # (Auto) 0.2 Baso # (Auto) 0.1 Immature Gran # (Auto) 0.39 H Absolute Nucleated RBC 0.00 Immature Gran % 3 H Nucleated RBC % 0 Sodium 136 Potassium 4.1 Chloride 104 Carbon Dioxide 26.1 Anion Gap 6 L BUN 35 H Creatinine 3.4 H Estim Creat Clear Calc 23.4 L eGFR 16 L BUN/Creatinine Ratio 10 L Glucose 159 H Calculated Osmolality 282 Calcium 8.7 Corrected Calcium 9.1 Total Bilirubin 0.2 L AST 14 ALT 19 Alkaline Phosphatase 379 H D Total Protein 6.4 Albumin 3.5 Globulin 2.9 Albumin/Globulin Ratio 1.2 Impressions Impression: # Acute posthemorrhagic anemia # Hemorrhagic gastritis # Diverticulosis left colon Continue current treatment Assessment & Plan A&P 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 f/u with outpt primary, I can not see in clinic. backlog too great. 3 mo in most cases Time Spent With Patient Time: Total time spent is greater than 50% in coordination of care (as documented) at patient's floor/unit and/or counseling patient:
[2024-01-10] MEDS: carVEDILOL 12.5 MG TABLET 25 MG PO (17:27)
--- NOTE | 2024-01-10 18:28 | PC.NURSE ---
PT CONT ON 4L/M OF O2 AND SPO2 IS IN THE HIGH 90'S.
[2024-01-10] MEDS: GABAPENTIN 300 MG CAPSULE PO (20:24)
[2024-01-10] MEDS: hydrOXYzine HCL 25 MG TABLET PO (20:38)
[2024-01-11] VITALS (15 sets, daily range): BP systolic 131–151; BP diastolic 58–76; PULSE 61–80; RESP 16–95; TEMP 36.2–36.9; O2SAT 92–100
[2024-01-11] MEDS: MIDAZOLAM INJ 1 MG/ML VIAL 2 ML IV (02:34)
[2024-01-11] MEDS: FUROSEMIDE INJ 10 MG/ML 4ML VIAL 40 MG IVP ×3 (05:28→22:23)
[2024-01-11] MEDS: hydrALAZINE HCL 25 MG TABLET PO ×3 (05:28→22:22)
[2024-01-11] MEDS: METOCLOPRAMIDE INJ 5 MG/ML VIAL 2 ML IVP ×4 (05:33→23:38)
[2024-01-11 06:07] LABS: Basophils # (Auto) 0.1 Thou/mm3 (0.0-0.2); Basophils % (Auto) 1 % (0-2.5); Eosinophils # (Auto) 0.1 Thou/mm3 (0.0-0.5); Eosinophils % (Auto) 1 % (0-10); Hematocrit 27.4 % (36.0-46.0); Immature Granulocytes % (Auto) 4 % (0-0); Immature Granulocytes Auto 0.45 Thou/mm3 (0.00-0.00); Lymphocytes # (Auto) 1.8 Thou/mm3 (1.0-4.8); Lymphocytes % (Auto) 16 % (10-50); Mean Corpuscular HGB Conc 31.8 g/dl (31.0-37.0); Mean Corpuscular Hemoglobin 29.4 pg (25.0-35.0); Mean Corpuscular Volume 93 fL (80-100); Monocytes # (Auto) 1.3 Thou/mm3 (0.0-0.8); Monocytes % (Auto) 12 % (0-12); Neutrophils # (Auto) 7.2 Thou/mm3 (1.8-7.7); Neutrophils % (Auto) 66 % (37-80); Nucleated Red Blood Cell % 0 /100 WBC (0); Platelet Count 296 Thou/mm3 (140-440); RDW Standard Deviation 45.7 fL (36.4-46.3); Red Blood Count 2.96 Miln/mm3 (4.00-5.20)
[2024-01-11 06:10] LABS: Hemoglobin 8.7 g/dL (12.0-16.0)
[2024-01-11 06:19] LABS: Alanine Aminotransferase 17 U/L (10-49); Albumin, Serum 3.5 gm/dL (3.5-5.0); Albumin/Globulin Ratio 1.2 (1.2-2.2); Alkaline Phosphatase 339 U/L (46-116); Anion Gap 5 (7-16); Aspartate Amino Transferase 12 U/L (0-34); BUN/Creatinine Ratio 11 Ratio (12-20); Bilirubin,Total 0.2 mg/dL (0.3-1.2); Blood Urea Nitrogen 28 mg/dL (9-23); Calcium 8.6 mg/dL (8.3-10.6); Carbon Dioxide 29.1 mMol/L (20.0-31.0); Chloride 103 mMol/L (98-107); Creatinine (Component) 2.6 mg/dL (0.6-1.3); Estimated Creatinine Clearance 30.5 mL/min (>60); Glucose 182 mg/dL (74-106); Osmolality,Calculated 284 (275-295); Potassium 3.8 mMol/L (3.4-5.1); Sodium 137 mMol/L (136-145); Total Protein 6.5 gm/dL (5.7-8.2); eGFR 22 See Note
[2024-01-11] MEDS: oxyCODONE/APAP 5/325 TABLET 1 TAB PO ×3 (07:25→22:24)
[2024-01-11] MEDS: DiphenhydrAMINE 25 MG CAPSULE PO ×2 (07:31→18:08)
[2024-01-11] MEDS: SEVELAMER CARBONATE 800 MG TABLET PO ×3 (07:31→18:02)
[2024-01-11] MEDS: INSULIN LISPRO (AdmeLOG) 1 UNIT/0.01 ML UNIT SC ×4 (07:32→22:24)
[2024-01-11] MEDS: carVEDILOL 12.5 MG TABLET 25 MG PO ×2 (07:38→18:02)
[2024-01-11] MEDS: PANTOPRAZOLE 40 MG TABLET PO (08:21)
[2024-01-11] MEDS: POLYETHYLENE GLYCOL 17 GM PACKET PO (08:21)
[2024-01-11] MEDS: ASCORBIC ACID 250 MG TABLET 500 MG PO ×2 (08:21→22:23)
[2024-01-11] MEDS: ZINC SULFATE 220 MG CAPSULE PO (08:21)
[2024-01-11] MEDS: amLODIPine BESYLATE 5 MG TABLET 10 MG PO (08:22)
[2024-01-11] MEDS: SENNA TABLET 1 TAB PO (08:22)
[2024-01-11] MEDS: Lisinopril 20 MG TABLET PO (08:22)
[2024-01-11] MEDS: HEPARIN SOD INJ 5000 UNIT/ML VIAL SC ×2 (08:22→22:22)
--- NOTE | 2024-01-11 10:22 | CHAP ---
Patient was visited by the Spiritual Care Volunteer from whom they received communion. (Volunteer was in the hospital from 13-12-21).
[2024-01-11] MEDS: DiphenhydrAMINE INJ 50 MG/ML VIAL IVP (11:55)
--- NOTE | 2024-01-11 12:44 | ESPR_ITS ---
Documentation for date of: 01/11/24 Subjective Subjective Interval history: Interval history: Ms. Costa is a 48 y/o F with PMHx significant for type 2 diabetes mellitus (insulin-dependent), hypertension, kidney cancer status post partial nephrectomy, and history of right foot osteomyelitis status post debridement and amputations now presents with shortness of breath and left great toe pain. Patient states that she has been short of breath for last couple of days, endorsing orthopnea and PND with associated bilateral lower extremity edema, bilateral upper extremity edema, and swelling around the eyes and tongue. She denies chest pain, pressure, and tightness. Also reports pain in left great toe initially with purulent drainage, now with serosanguineous material on bed sheets in ED. Denies fever and chills but endorses sweats. Otherwise denies dysuria, hematuria, or foul-smelling urine. Labs at time of admission showed BUN 48 (baseline 19?22), [employer] Techn[employer] 3.0 (baseline 1.5), GFR 18. Chest x-ray showed heart failure pattern, bibasilar pneumonia, moderate left and large right pleural effusions. X-ray of left foot showed significant osteo of distal phalanx of first digit. Patient admitted for CHF exacerbation and left toe osteomyelitis. Nephrology was consulted due to KIM on CKD. Patient seen in ED resting in bed. Patient had bilateral lower extremity edema, worse than usual per patient. Lungs clear to auscultation, poor lung sounds due to body habitus. Labs at time of exam showed sodium 136, potassium 5.5, bicarb 16.3, BUN 51, creatinine 3.0, eGFR 18. Plan for additional diuretics, suspect cardiorenal syndrome due to fluid overload state. 12/31: Patient seen resting comfortably in bed. Patient has lower extremity edema, mildly improved. Lungs clear to auscultation, poor lung sounds due to body habitus. Sodium 138, potassium 4.3, bicarb 20.1, BUN 55, creatinine 2.4, eGFR 16. Plan for amputation of left great toe later today. 01/05/2024 patient currently seen in medical floor. She is blind from diabetic retinopathy. She has severe progressive diabetic nephropathy with nephrotic range proteinuria and nephrotic syndrome with significant anasarca. On diuretics. GFR declining. Had a long conversation with patient regarding renal replacement therapy as her GFR is less than 15 and she agreed for dialysis if indicated. Currently on diuretics. Cannot give any fluids due to anasarca. Labs, medications reviewed. Will proceed with dialysis in a.m. Patient complaining of significant edema. Will increase the Lasix to 3 times daily. Plan of care discussed with primary team. 01/11/2024 patient currently seen in medical floor. Due to her insurance reasons patient needs to go to [facility] dialysis. She is very reluctant as she has no ride. Patient wants to switch to [facility] and wants to come to portable dialysis unit. Conveyed the same to primary team. Complaining of extreme anxiety. Ativan ordered. Patient currently on high doses of Benadryl,Hydroxyzine and did receive 1 dose of Versed yesterday with no improvement in anxiety. Labs, medications reviewed. Hemoglobin 8.7, creatinine 2.6-patient did receive dialysis yesterday.Corral catheter was removed. Patient might need only twice weekly dialysis for now. Review of Systems Review of Systems Narrative Review of Systems: CONSTITUTIONAL: Patient denies any fever, chills. HEENT: Patient blind CARDIOVASCULAR: Patient denies any chest pain, shortness of breath ++ swelling in the lower extremities. PULMONARY: Patient denies any shortness of breath, cough. GASTROINTESTINAL: Patient denies any abdominal pain, constipation, nausea, vomiting, diarrhea. GENITOURINARY: Patient denies any urinary symptoms of burning or frequency or hematuria, denies any form in the urine. SKIN: Denies any rash. MUSCULOSKELETAL: does have gait imbalance NEUROLOGICAL: Denies any neurological problems of strokes, seizures or confusion. Denies any memory problems. Legally blind from diabetic retinopathy PSYCHIATRIC: Denies any depression or anxiety. LYMPHATICS : No lymphadenopathy Exam Vital Signs Temp Pulse Resp BP Pulse Ox O2 Del Method O2 Flow Rate 36.2 C 74 18 151/70 H 94 L Nasal Cannula 5 01/11/24 16:00 01/11/24 18:02 01/11/24 16:00 01/11/24 18:02 01/11/24 16:00 01/11/24 16:00 01/11/24 16:00 Narrative Exam Constitutional: well-developed, well-nourished, legally blind female. HEENT: NCAT, reactive round pupils b/l, saturating at 96% 6L Oxy Mask. Lung: CTAB, no wheezing, no rhonchi, no crackles. Heart: Regular S1S2, no murmurs, gallops, or rubs. Abdomen: Soft, non-tender, Normoactive bowel sounds. Extremities: No cyanosis, clubbing, No bilateral lower or upper extremity edema. Neurologic: No focal sensory or motor deficits noted, generally alert and oriented to person, place, time. Skin: Warm, dry, no lesions or rashes noted Objective Labs 01/11/24 04:58 01/11/24 04:58 Labs: Laboratory Results - last 24 hr 01/11/24 04:58 WBC 11.0 RBC 2.96 L Hgb 8.7 L Hct 27.4 L MCV 93 MCH 29.4 MCHC 31.8 RDW Std Deviation 45.7 Plt Count 296 Neut % (Auto) 66 Lymph % (Auto) 16 [place] % (Auto) 12 Eos % (Auto) 1 Baso % (Auto) 1 Neut # (Auto) 7.2 Lymph # (Auto) 1.8 [place] # (Auto) 1.3 H Eos # (Auto) 0.1 Baso # (Auto) 0.1 Immature Gran # (Auto) 0.45 H Absolute Nucleated RBC 0.00 Immature Gran % 4 H Nucleated RBC % 0 Sodium 137 Potassium 3.8 Chloride 103 Carbon Dioxide 29.1 Anion Gap 5 L BUN 28 H Creatinine 2.6 H D Estim Creat Clear Calc 30.5 L eGFR 22 L BUN/Creatinine Ratio 11 L Glucose 182 H Calculated Osmolality 284 Calcium 8.6 Corrected Calcium 9.0 Total Bilirubin 0.2 L AST 12 ALT 17 Alkaline Phosphatase 339 H D Total Protein 6.5 Albumin 3.5 Globulin 3.0 Albumin/Globulin Ratio 1.2 Assessment & Plan Assessment and plan (1) Osteomyelitis of great toe: Status: Acute Additional Assessment & Plan Additional Plan: Tati Costa is a 48-year-old female with past medical history of type 2 diabetes mellitus (insulin-dependent), hypertension, kidney cancer status post partial nephrectomy, and history of right foot osteomyelitis status post debridement and amputations admitted for CHF and left great toe osteomyelitis work-up and management. #Acute on chronic kidney injury #CKD stage IV #Nephrotic syndrome Patient presented with poor kidney function, BUN, creatinine elevated above baseline. Patient has history of CHF, appears to be in CHF exacerbation clinically based on reported symptoms of orthopnea, exam findings of bilateral lower extremity edema increased compared to baseline per patient. Renal ultrasound showed no hydronephrosis or renal stones. BLE mildly improved with diuresis. Urine protein/creatinine 16.6 g Had a long conversation with patient regarding progressive diabetic nephropathy, proteinuria, anasarca and significant fluid overload. On diuretics. Worsening renal function. GFR less than 15. Patient agreed for dialysis. Patient received 3 dialysis sessions so far. Plan: -Renally dose medications -Avoid nephrotoxic meds -Follow daily labs -Diuretics: Continue with Lasix daily # ?New onset CHF//diabetic nephropathy #Anasarca #Osteomyelitis, left great toe #History of osteomyelitis, right foot #Type 2 diabetes mellitus, insulin-dependent #Hypertension #Hypertensive urgency Plan as per primary team Plan of care discussed with primary team-needs outpatient dialysis twice weekly.
[2024-01-11] MEDS: LORazepam 0.5 MG TABLET PO (14:21)
--- NOTE | 2024-01-11 15:46 | ESPR_ITS ---
<Statement entered by Andres Crump MD - 01/13/24 07:36> Senior Resident Attestation: I supervised/discussed management plan with resident physician Dr. Savage, and was involved in the care of this patient. I personally saw and examined the patient and discussed the assessment and plan with the entire medicine team, including my attending. Patient's care was discussed with attending physician, Dr. Larry Crump MD PGY-3 Documentation for date of: 01/11/24 Subjective Subjective Interval history: Patient endorses she accidentally pulled on her dialysis catheter in the evening of 01/10/2024. Patient felt itchy on her torso and bilateral axilla overnight. Midazolam and Benadryl given by night team. Patient seen and examined at bedside this morning. Labs reviewed. Dialysis catheter appears intact with only minimal blood at the site. Patient's lower extremities no longer edematous and clear on auscultation all lung lobes bilaterally. Dialysis to be continued tomorrow. Patient is pending dialysis chair in outpatient setting. Exam Vital Signs Temp Pulse Resp BP Pulse Ox O2 Del Method O2 Flow Rate 98.0 F 64 18 145/76 H 100 Nasal Cannula 5 01/11/24 12:00 01/11/24 14:21 01/11/24 12:00 01/11/24 14:21 01/11/24 12:00 01/11/24 12:00 01/11/24 12:00 Narrative Exam Constitutional: obese, well-developed, legally blind female. HEENT: NCAT, reactive round pupils b/l, saturating at 96% on 2 L NC. Lung: CTAB, no wheezing, no rhonchi, no crackles. Heart: Regular S1S2, no murmurs. Abdomen: Soft, non-tender, Normoactive bowel sounds. Extremities: No cyanosis, No upper extremity edema. No pitting edema b/l lower extremities. Wound gauze wrapped around left foot s/p amputation of great toe. Right 3rd through 4th digits amputated. Neurologic: Generally alert and oriented to person, place, time. Skin: Warm, dry. Pinpoint rash adjacent to the left posterior axilla. Objective Labs 01/12/24 04:50 01/12/24 04:50 Labs: Laboratory Results - last 24 hr 01/11/24 04:58 WBC 11.0 RBC 2.96 L Hgb 8.7 L Hct 27.4 L MCV 93 MCH 29.4 MCHC 31.8 RDW Std Deviation 45.7 Plt Count 296 Neut % (Auto) 66 Lymph % (Auto) 16 [place] % (Auto) 12 Eos % (Auto) 1 Baso % (Auto) 1 Neut # (Auto) 7.2 Lymph # (Auto) 1.8 [place] # (Auto) 1.3 H Eos # (Auto) 0.1 Baso # (Auto) 0.1 Immature Gran # (Auto) 0.45 H Absolute Nucleated RBC 0.00 Immature Gran % 4 H Nucleated RBC % 0 Sodium 137 Potassium 3.8 Chloride 103 Carbon Dioxide 29.1 Anion Gap 5 L BUN 28 H Creatinine 2.6 H D Estim Creat Clear Calc 30.5 L eGFR 22 L BUN/Creatinine Ratio 11 L Glucose 182 H Calculated Osmolality 284 Calcium 8.6 Corrected Calcium 9.0 Total Bilirubin 0.2 L AST 12 ALT 17 Alkaline Phosphatase 339 H D Total Protein 6.5 Albumin 3.5 Globulin 3.0 Albumin/Globulin Ratio 1.2 Quality Measures Quality Measures VTE prophylaxis Assessment & Plan Assessment Current Active Medications: Generic Name Dose Route Start Last Admin Trade Name Freq PRN Reason Stop Dose Admin Acetaminophen 650 mg 01/01/24 08:16 01/03/24 13:28 Acetaminophen 325 Mg Tablet PO 01/29/24 20:51 650 mg Q6H PRN Administration MILD PAIN (1-3) OR FEVER > 101 Amlodipine Besylate 10 mg 12/31/23 09:00 01/11/24 08:22 Amlodipine Besylate 5 Mg Tablet PO 01/30/24 08:59 10 mg QDAY KARY Administration Ascorbic Acid 500 mg 01/01/24 21:00 01/11/24 08:21 Ascorbic Acid 250 Mg Tablet PO 01/31/24 20:59 500 mg BID KARY Administration Carvedilol 25 mg 01/02/24 17:30 01/11/24 07:38 Carvedilol 12.5 Mg Tablet PO 02/01/24 17:29 25 mg BIDWM KARY Administration Dextrose 25 ml 12/30/23 21:05 Dextrose 50%-Water Inj 50 Ml Syringe IV 01/29/24 21:04 Q15MIN PRN BG 50-70 responsive npo pt Dextrose 50 ml 12/30/23 21:05 Dextrose 50%-Water Inj 50 Ml Syringe IV 01/29/24 21:04 Q15MIN PRN BG <50 OR BG <70 & pt unresponsive Diphenhydramine HCl 25 mg 01/03/24 22:21 01/11/24 07:31 Diphenhydramine 25 Mg Capsule PO 02/02/24 22:20 25 mg Q6HR PRN Administration Allergic Symptoms Furosemide 40 mg 01/05/24 14:00 01/11/24 14:21 Furosemide Inj 10 Mg/Ml 4ml Vial IVP 02/04/24 13:59 40 mg TID KARY Administration Gabapentin 300 mg 01/03/24 21:00 01/10/24 20:24 Gabapentin 300 Mg Capsule PO 02/02/24 20:59 300 mg HS KARY Administration Glucagon 1 mg 12/30/23 21:05 Glucagon Inj 1 Mg Vial IM Q15MIN PRN BG <70, and no IV access Heparin Sodium (Porcine) 3,300 unit 01/06/24 14:56 01/07/24 11:09 Heparin Sod Inj 1000 Unit/Ml Vial 10 Ml INDWELLCAT 01/20/24 14:55 3,300 unit PRN PRN Administration DIALYSIS Heparin Sodium (Porcine) 5,000 unit 01/09/24 21:00 01/11/24 08:22 Heparin Sod Inj 5000 Unit/Ml Vial SC 01/23/24 20:59 5,000 unit BID KARY Administration Hydralazine HCl 25 mg 12/31/23 09:00 01/11/24 14:21 Hydralazine Hcl 25 Mg Tablet PO 01/30/24 08:59 25 mg TID KARY Administration Hydroxyzine HCl 25 mg 01/02/24 11:12 01/10/24 20:38 Hydroxyzine Hcl 25 Mg Tablet PO 01/30/24 00:06 25 mg HS PRN Administration insomnia Insulin Human Lispro 0 unit 01/07/24 07:30 01/11/24 11:36 Insulin Lispro (Admelog) 1 Unit/0.01 Ml Unit SC 02/06/24 07:29 2 unit ACHS KARY Administration Protocol Lisinopril 20 mg 01/08/24 09:15 01/11/24 08:22 Lisinopril 20 Mg Tablet PO 02/07/24 09:14 20 mg QDAY KARY Administration Lorazepam 0.5 mg 01/11/24 13:48 11/17/24 14:21 Lorazepam 0.5 Mg Tablet PO 01/16/24 20:59 0.5 mg BID PRN Administration ANXIETY Metoclopramide HCl 5 mg 01/02/24 20:15 01/11/24 11:55 Metoclopramide Inj 5 Mg/Ml Vial 2 Ml IVP 02/01/24 20:14 5 mg Q6HR KARY Administration Protocol Ondansetron HCl 4 mg 12/30/23 20:52 Ondansetron Inj 2 Mg/Ml Inj 2 Ml IV 01/29/24 20:51 Q6H PRN NAUSEA OR VOMITING Protocol Oxycodone/Acetaminophen 1 tab 01/09/24 09:52 01/11/24 15:38 Oxycodone/Apap 5/325 Tablet PO 01/14/24 09:51 1 tab Q6HR PRN Administration PAIN SCALE 4-10(Mod-Sev Pantoprazole Sodium 40 mg 01/07/24 09:00 01/11/24 08:21 Pantoprazole 40 Mg Tablet PO 02/06/24 08:59 40 mg QDAY KARY Administration Polyethylene Glycol 17 gm 01/09/24 11:00 01/11/24 08:21 Polyethylene Glycol 17 Gm Packet PO 02/08/24 10:59 17 gm QDAY KARY Administration Sennosides 1 tab 12/31/23 09:00 01/11/24 08:22 Senna Tablet PO 01/30/24 08:59 1 tab QDAY KARY Administration Protocol Sevelamer Carbonate 800 mg 12/31/23 17:30 01/11/24 11:35 Sevelamer Carbonate 800 Mg Tablet PO 01/30/24 17:29 800 mg TIDWM KARY Administration Zinc Sulfate 220 mg 01/02/24 09:00 01/11/24 08:21 Zinc Sulfate 220 Mg Capsule PO 02/01/24 08:59 220 mg QDAY KARY Administration Plan 48-year-old female with past medical history of type 2 diabetes mellitus (insulin-dependent), hypertension, kidney cancer status post partial nephrectomy, and history of right foot osteomyelitis status post debridement and amputations. Found to be septic with HR 104, WBC elevated, Cr at 3.0. Admitted for CHF and left great toe osteomyelitis work-up and management. Ultrasound- guided thoracentesis showed small bilateral perfusion, no drainage done.Found to have low hemoglobin at 7.1. On 01/03/2024, 1 unit packed red blood cells transfused. GI was consulted, status post EGD, s/p colonoscopy showed hemorrhoids and diverticulosis, no acute bleeding. S/p Dialysis catheter placement, now on scheduled dialysis per electronic prepress system operator. Patient is pending outpatient chair time. #New onset ESRD on dialysis #Nephrotic syndrome #Renal cell carinoma Elevated creatinine/low GFR currently worsening in setting of nephrotic syndrome, requiring dialysis. Renal ultrasound showed: Right kidney 12.3 x 7.2 x 7.1 cm cortex 2.2 cm. Right kidney 11.8 x 6.2 x 5.7 cm cortex 2.3 cm. No hydronephrosis or renal calculi. Bladder prevoid volume 2 87 cc unable to void. Urine random total protein 382. Urine random creatinine 23. Urine random sodium 96. Creatinine increased from 2.9 to 3.2, GFR 19. Considering patient's worsening kidney function, she is now on dialysis started during this hospitalization. Dialysis catheter appears intact with only minimal blood at the site. Plan: -Nephrology on board; recommends increase bed to chair time. -Pending chair time for outpatient dialysis. -Continue inpatient dialysis per schedule; pending dialysis tomorrow -Follow-up renal panel -Avoid nephrotoxic agents #HFpEF EF 60 to 65% Patient presented with shortness of breath,orthopnea,and PND, requiring oxygen. Oxygen requirement is stable at 4L/min. Lower extremity edema 1+ on left lower extremity, improving. Chest x-ray showed mild chronic heart failure, prominent vascular congestion. Suspect hypertension and obesity led to heart failure, currently heart failure is compensated with aggressive diuresis. Patient's lower extremities no longer edematous and clear on auscultation all lung lobes bilaterally. Echo 06/22/2023: EF 60-65%, trace MR, AR, and mild TR. BNP mildly elevated at 165, troponin negative. NYHA class III. Echo: Normal LV size and function. Estimated EF 60-65%. Mild LVH. Diatsolic dysfunction stage 1 Normal RV size and function. Mild MR, TR. There is a small circumferential pericardial effusion. No evidence of cardiac tamponade. Plan: -Lasix 40 mg IV three times daily, per nephrology recc's -Fluid restriction (1.2 L), daily weight checks, Strict I & O -CMP in am #Unspecified Rash Ddx: Contact dermatitis vs uriticaria Patient developed a rash in the posterior left axilla. She complained of itchy torso and axilla. Night team provided Midalozam and benadryl on 01/10/24. Plan: -benadryl x1 -provide benadryl as needed -Reassess as needed -closely monitor #Diverticulosis #Hemorrhoids #Gastritis #Esophagitis #Nonerosive lesion at GE junction #Normocytic anemia #Status post EGD 01/02/24 #S/p colonoscopy 01/05/2024 Patient suffers from constipation. She has never had a colonoscopy. Denies dizziness or generalized weakness. EGD 01/01 showed gastritis, esophagitis, nonerosive lesions at the GE junction.No bleeding source. Colonoscopy 03/06/2023 showed hemorrhoids and diverticulosis in the sigmoid and the descending colon. No bleeding. Cannot rule out colon cancer in setting renal cell carcinoma hx, requires pathology report. Stool negative for WBCs. Ferritin normal limits. Plan: -Gastroenterology consulted, recommends high-fiber diet and outpatient follow-up with gastroenterology clinic in 2 weeks -Monitor CBC #Osteomyelitis, left great toe #History of osteomyelitis, right foot #S/p left 1st metatarsal amputation on 01/01/2024 Patient presented with pain in the left foot, found to have left great toe OM, requiring amputation. XR and MRI of the left foot showed osteomyelitis of the proximal and distal phalanges first digit. Distal metatarsal head division and transmetatarsal amputation performed by general surgeon. Blood culture prelim negative x2. Wound culture does not seem to have been collected during amputation. Infectious disease was consulted; recommended oral antibiotics for a few days (4-5d) after amputation--completed General surgery consulted; recommended amputation-- completed Plan: -Pain: Oxycodone -Wound care Antimicrobials: Keflex 500 mg every 8 hours (01/03/2024- 01/07/2024). Doxycycline 100 mg IV BID (12/29-12/31) and Ceftriaxone 2gm daily (12/31/2023- 01/01/24). #Hypertension Chronic, uncontrolled BP is well controlled. Her elevated blood pressure is likely secondary to pain. Plan: -Lisinopril 10mg daily increased to 20 mg and Coreg 25mg BID WM -Continue Amlodipine 10 mg daily and Hydralazine 25 mg TID oral #Type 2 diabetes mellitus, insulin-dependent (A1c 9.7%) #Obesity Chronic, uncontrolled Glucose is currently controlled. Patient home lantus 30 units daily. Plan: -SSI lispro -Bedside glucose checks -Hypoglycemic protocol #Diabetic neuropathy Hx of Diabetic neuropathy on gabapentin. ?Gabapentin 300 mg orally daily. #Hypertriglyceridemia Secondary to obesity Triglycerides 156, cholesterol 146, LDL 69, HDL 47 Plan: -F/up outpatient #Elevated Alkaline phosphatase Possibly 2/2 cancer and possible mets Alkaline phosphatase 527. #Polysubstance use Patient has a history of methamphetamine and marijuana use. She states that she uses methamphetamines once weekly and marijuana daily. U tox positive for opiates, thiamine, marijuana. -F/up outpatient #CHF exacerbation, resolved #Sepsis -resolved #Hyperkalemia, resolved #Hyperphosphatemia- resolved #Metabolic acidosis, resolved #Mild transaminitis-resolved #Hyperchloremia, resolved #Hypertensive urgency, resolved #B/L Pleural effusion, resolved DVT prophylaxis: Heparin SC GI prophylaxis: Pantoprazole 40 mg PO daily Diet: Renal Lines: Peripheral IV Code status: Full Code Discussed case with my attending Dr. Juarez and senior Andres Crump, PGY-3. Thank you, Jennifer Savage, PGY-2 Attending Provider Attestation/Addendum I have discussed and was present for the essential components of the history, physical examination, diagnosis, and treatment plan with the resident. I agree with the patient's care as documented by the resident and amended herein by me. Sebastian Juarez, DO. Patient seen and evaluated this AM. Vital signs stable, patient afebrile overnight, patient has developed pruritus on her trunk and part of her arms bilaterally, no rash readily identifiable, patient was given Benadryl on top of Atarax last night which she said resolved the issue however is back today. Patient has been getting sponge bath is here in the hospital, maybe there is a component of the chemical detergents or a component of the laundry soap which is making her itch. Possible medication, we will evaluate this however no new medications have been started in several days. Will continue Lasix per nephrology recommendations, discharge pending hemodialysis chair placement. The patient is adamant she does not want to go to [place], states she has no transportation and states she wishes to switch her insurance to [employer]. Will revisit with social work tomorrow. Although this document has been carefully reviewed, there may still be some phonetic and other typographical errors. These errors are purely grammatical due to imperfections in the software program and should not be construed in any way to compromise the substance of the patient's medical care during this visit.
--- NOTE | 2024-01-11 19:36 | PD.IMPROG ---
Documentation for date of: 01/11/24 Subjective Subjective Interval history: Hemoglobin hematocrit 8.7 and 27.4 Patient alert and oriented No evidence of any active GI bleed Exam Vital Signs Temp Pulse Resp BP Pulse Ox O2 Del Method O2 Flow Rate 97.1 F 74 18 151/70 H 94 L Nasal Cannula 5 01/11/24 16:00 01/11/24 18:02 01/11/24 16:00 01/11/24 18:02 01/11/24 16:00 01/11/24 16:00 01/11/24 16:00 Objective Labs 01/11/24 04:58 01/11/24 04:58 Labs: Laboratory Results - last 24 hr 01/11/24 04:58 WBC 11.0 RBC 2.96 L Hgb 8.7 L Hct 27.4 L MCV 93 MCH 29.4 MCHC 31.8 RDW Std Deviation 45.7 Plt Count 296 Neut % (Auto) 66 Lymph % (Auto) 16 [place] % (Auto) 12 Eos % (Auto) 1 Baso % (Auto) 1 Neut # (Auto) 7.2 Lymph # (Auto) 1.8 [place] # (Auto) 1.3 H Eos # (Auto) 0.1 Baso # (Auto) 0.1 Immature Gran # (Auto) 0.45 H Absolute Nucleated RBC 0.00 Immature Gran % 4 H Nucleated RBC % 0 Sodium 137 Potassium 3.8 Chloride 103 Carbon Dioxide 29.1 Anion Gap 5 L BUN 28 H Creatinine 2.6 H D Estim Creat Clear Calc 30.5 L eGFR 22 L BUN/Creatinine Ratio 11 L Glucose 182 H Calculated Osmolality 284 Calcium 8.6 Corrected Calcium 9.0 Total Bilirubin 0.2 L AST 12 ALT 17 Alkaline Phosphatase 339 H D Total Protein 6.5 Albumin 3.5 Globulin 3.0 Albumin/Globulin Ratio 1.2 Impressions Impression: # Acute posthemorrhagic anemia # Gastritis # Esophagitis # Diverticulosis left colon Continue to monitor CBC Assessment & Plan A&P 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 f/u with outpt primary, I can not see in clinic. backlog too great. 3 mo in most cases Time Spent With Patient Time: Total time spent is greater than 50% in coordination of care (as documented) at patient's floor/unit and/or counseling patient:
[2024-01-11] MEDS: GABAPENTIN 300 MG CAPSULE PO (22:23)
[2024-01-12] VITALS (16 sets, daily range): BP systolic 121–151; BP diastolic 59–78; PULSE 63–73; RESP 16–97; TEMP 36.6–37.2; O2SAT 93–98; BMI 37.4
[2024-01-12] MEDS: DiphenhydrAMINE 25 MG CAPSULE PO ×2 (00:13→18:27)
[2024-01-12] MEDS: FUROSEMIDE INJ 10 MG/ML 4ML VIAL 40 MG IVP ×3 (05:35→20:59)
[2024-01-12] MEDS: METOCLOPRAMIDE INJ 5 MG/ML VIAL 2 ML IVP ×3 (05:35→17:48)
[2024-01-12] MEDS: hydrALAZINE HCL 25 MG TABLET PO ×3 (05:36→20:59)
[2024-01-12 05:54] LABS: Basophils # (Auto) 0.1 Thou/mm3 (0.0-0.2); Basophils % (Auto) 1 % (0-2.5); Eosinophils # (Auto) 0.2 Thou/mm3 (0.0-0.5); Eosinophils % (Auto) 2 % (0-10); Hematocrit 27.7 % (36.0-46.0); Immature Granulocytes % (Auto) 4 % (0-0); Immature Granulocytes Auto 0.42 Thou/mm3 (0.00-0.00); Lymphocytes % (Auto) 19 % (10-50); Mean Corpuscular HGB Conc 31.4 g/dl (31.0-37.0); Mean Corpuscular Hemoglobin 29.3 pg (25.0-35.0); Mean Corpuscular Volume 93 fL (80-100); Monocytes # (Auto) 1.3 Thou/mm3 (0.0-0.8); Monocytes % (Auto) 12 % (0-12); Neutrophils # (Auto) 6.9 Thou/mm3 (1.8-7.7); Neutrophils % (Auto) 64 % (37-80); Nucleated Red Blood Cell % 0 /100 WBC (0); Platelet Count 266 Thou/mm3 (140-440); RDW Standard Deviation 46.5 fL (36.4-46.3); Red Blood Count 2.97 Miln/mm3 (4.00-5.20); White Blood Count 10.8 Thou/mm3 (3.6-11.0)
[2024-01-12 05:58] LABS: Hemoglobin 8.7 g/dL (12.0-16.0)
[2024-01-12 06:57] LABS: Alanine Aminotransferase 12 U/L (10-49); Albumin, Serum 3.6 gm/dL (3.5-5.0); Albumin/Globulin Ratio 1.2 (1.2-2.2); Alkaline Phosphatase 307 U/L (46-116); Anion Gap 10 (7-16); Aspartate Amino Transferase 13 U/L (0-34); BUN/Creatinine Ratio 11 Ratio (12-20); Bilirubin,Total 0.2 mg/dL (0.3-1.2); Blood Urea Nitrogen 38 mg/dL (9-23); Calcium 8.7 mg/dL (8.3-10.6); Carbon Dioxide 25.6 mMol/L (20.0-31.0); Chloride 102 mMol/L (98-107); Creatinine (Component) 3.5 mg/dL (0.6-1.3); Estimated Creatinine Clearance 22.3 mL/min (>60); Glucose 169 mg/dL (74-106); Osmolality,Calculated 288 (275-295); Potassium 3.9 mMol/L (3.4-5.1); Sodium 138 mMol/L (136-145); Total Protein 6.6 gm/dL (5.7-8.2); eGFR 15 See Note
[2024-01-12] MEDS: INSULIN LISPRO (AdmeLOG) 1 UNIT/0.01 ML UNIT SC ×4 (07:39→21:27)
[2024-01-12] MEDS: SENNA TABLET 1 TAB PO (08:07)
[2024-01-12] MEDS: amLODIPine BESYLATE 5 MG TABLET 10 MG PO (08:07)
[2024-01-12] MEDS: LORazepam 0.5 MG TABLET PO ×2 (08:08→21:41)
[2024-01-12] MEDS: ASCORBIC ACID 250 MG TABLET 500 MG PO ×2 (08:08→20:58)
[2024-01-12] MEDS: PANTOPRAZOLE 40 MG TABLET PO (08:08)
[2024-01-12] MEDS: ZINC SULFATE 220 MG CAPSULE PO (08:08)
[2024-01-12] MEDS: SEVELAMER CARBONATE 800 MG TABLET PO ×3 (08:08→17:48)
[2024-01-12] MEDS: Lisinopril 20 MG TABLET PO (08:08)
[2024-01-12] MEDS: carVEDILOL 12.5 MG TABLET 25 MG PO ×2 (08:08→17:48)
[2024-01-12] MEDS: HEPARIN SOD INJ 5000 UNIT/ML VIAL SC ×2 (08:09→20:53)
--- NOTE | 2024-01-12 08:19 | PD.SURPROG ---
Documentation for date of: 01/12/24 Subjective Subjective Narrative: Patient is seen and examined. She denies any pain to her amputation site Exam Vital Signs Temp Pulse Resp BP Pulse Ox O2 Del Method O2 Flow Rate 98.8 F 67 16 151/78 H 93 L Nasal Cannula 5 01/12/24 04:00 01/12/24 08:08 01/12/24 04:00 01/12/24 08:08 01/12/24 04:00 01/12/24 04:00 01/12/24 00:00 Constitutional Constitutional: no acute distress Routine Extremities Exam Comments: Significant improvement of left foot edema. Amputation site without evidence of infection or bleeding. The mid aspect of the incision has dehisced Assessment & Plan Assessment Additional comments: Status post transmetatarsal amputation of left first toe Plan Wet-to-dry dressings to left foot amputation site daily Procedures Procedures Transmetatarsal amputation of left first toe
--- NOTE | 2024-01-12 10:25 | PD.RESPRO ---
Documentation for date of: 01/12/24 Subjective Subjective Interval history: Ms. Costa is a 48 y/o F with PMHx significant for type 2 diabetes mellitus (insulin-dependent), hypertension, kidney cancer status post partial nephrectomy, and history of right foot osteomyelitis status post debridement and amputations now presents with shortness of breath and left great toe pain. Patient states that she has been short of breath for last couple of days, endorsing orthopnea and PND with associated bilateral lower extremity edema, bilateral upper extremity edema, and swelling around the eyes and tongue. She denies chest pain, pressure, and tightness. Also reports pain in left great toe initially with purulent drainage, now with serosanguineous material on bed sheets in ED. Denies fever and chills but endorses sweats. Otherwise denies dysuria, hematuria, or foul-smelling urine. Labs at time of admission showed BUN 48 (baseline 19?22), [employer] 3.0 (baseline 1.5), GFR 18. Chest x-ray showed heart failure pattern, bibasilar pneumonia, moderate left and large right pleural effusions. X-ray of left foot showed significant osteo of distal phalanx of first digit. Patient admitted for CHF exacerbation and left toe osteomyelitis. Nephrology was consulted due to KIM on CKD. Patient seen in ED resting in bed. Patient had bilateral lower extremity edema, worse than usual per patient. Lungs clear to auscultation, poor lung sounds due to body habitus. Labs at time of exam showed sodium 136, potassium 5.5, bicarb 16.3, BUN 51, creatinine 3.0, eGFR 18. Plan for additional diuretics, suspect cardiorenal syndrome due to fluid overload state. 12/31: Patient seen resting comfortably in bed. Patient has lower extremity edema, mildly improved. Lungs clear to auscultation, poor lung sounds due to body habitus. Sodium 138, potassium 4.3, bicarb 20.1, BUN 55, creatinine 2.4, eGFR 16. Plan for amputation of left great toe later today. 01/05/2024 patient currently seen in medical floor. She is blind from diabetic retinopathy. She has severe progressive diabetic nephropathy with nephrotic range proteinuria and nephrotic syndrome with significant anasarca. On diuretics. GFR declining. Had a long conversation with patient regarding renal replacement therapy as her GFR is less than 15 and she agreed for dialysis if indicated. Currently on diuretics. Cannot give any fluids due to anasarca. Labs, medications reviewed. Will proceed with dialysis in a.m. Patient complaining of significant edema. Will increase the Lasix to 3 times daily. Plan of care discussed with primary team. 01/11/2024 patient currently seen in medical floor. Due to her insurance reasons patient needs to go to [facility] dialysis. She is very reluctant as she has no ride. Patient wants to switch to [facility] and wants to come to portable dialysis unit. Conveyed the same to primary team. Complaining of extreme anxiety. Ativan ordered. Patient currently on high doses of Benadryl,Hydroxyzine and did receive 1 dose of Versed yesterday with no improvement in anxiety. Labs, medications reviewed. Hemoglobin 8.7, creatinine 2.6-patient did receive dialysis yesterday.Corral catheter was removed. Patient might need only twice weekly dialysis for now. 01/12/2024 Patient seen and examined on the medical floor. Patient resting comfortably in bed. States ativan has been controlling anxiety. BUN 38, Creatinine 3.5, eGFR 15. No plans for dialysis today, still arranging outpatient dialysis. Exam Vital Signs Temp Pulse Resp BP Pulse Ox O2 Del Method O2 Flow Rate 97.9 F 63 18 151/78 H 98 Nasal Cannula 4 01/12/24 08:00 01/12/24 09:06 01/12/24 09:06 01/12/24 08:08 01/12/24 08:00 01/12/24 08:00 01/12/24 08:00 Narrative Exam GENERAL APPEARANCE: Patient appears mildly anxious. HEENT: Patient blind CARDIOVASCULAR: Heart regular, no murmurs LUNGS/CHEST: Chest clear to auscultation. No rales, rhonchi, wheezing ABDOMEN: Soft, nontender, nondistended. No masses. Normal bowel sounds. EXTREMITIES: Edema in the lower extremities, left greater than right. SKIN: Right 2 toes missing. Left great toe amputated MUSCULOSKELETAL: In bed NEUROLOGICAL : No neurological deficits Objective Labs 01/13/24 05:31 01/13/24 05:31 Labs: Laboratory Results - last 24 hr 01/12/24 04:50 WBC 10.8 RBC 2.97 L Hgb 8.7 L Hct 27.7 L MCV 93 MCH 29.3 MCHC 31.4 RDW Std Deviation 46.5 H Plt Count 266 D Neut % (Auto) 64 Lymph % (Auto) 19 [place] % (Auto) 12 Eos % (Auto) 2 Baso % (Auto) 1 Neut # (Auto) 6.9 Lymph # (Auto) 2.0 [place] # (Auto) 1.3 H Eos # (Auto) 0.2 Baso # (Auto) 0.1 Immature Gran # (Auto) 0.42 H Absolute Nucleated RBC 0.00 Immature Gran % 4 H Nucleated RBC % 0 Sodium 138 Potassium 3.9 Chloride 102 Carbon Dioxide 25.6 Anion Gap 10 BUN 38 H Creatinine 3.5 H D Estim Creat Clear Calc 22.3 L eGFR 15 L BUN/Creatinine Ratio 11 L Glucose 169 H Calculated Osmolality 288 Calcium 8.7 Corrected Calcium 9.0 Total Bilirubin 0.2 L AST 13 ALT 12 Alkaline Phosphatase 307 H D Total Protein 6.6 Albumin 3.6 Globulin 3.0 Albumin/Globulin Ratio 1.2 Quality Measures Quality Measures VTE prophylaxis Assessment & Plan Assessment Current Active Medications: Generic Name Dose Route Start Last Admin Trade Name Freq PRN Reason Stop Dose Admin Acetaminophen 650 mg 01/01/24 08:16 01/03/24 13:28 Acetaminophen 325 Mg Tablet PO 01/29/24 20:51 650 mg Q6H PRN Administration MILD PAIN (1-3) OR FEVER > 101 Amlodipine Besylate 10 mg 12/31/23 09:00 01/12/24 08:07 Amlodipine Besylate 5 Mg Tablet PO 01/30/24 08:59 10 mg QDAY KARY Administration Ascorbic Acid 500 mg 01/01/24 21:00 01/12/24 08:08 Ascorbic Acid 250 Mg Tablet PO 01/31/24 20:59 500 mg BID KARY Administration Carvedilol 25 mg 01/02/24 17:30 01/12/24 08:08 Carvedilol 12.5 Mg Tablet PO 02/01/24 17:29 25 mg BIDWM KARY Administration Dextrose 25 ml 12/30/23 21:05 Dextrose 50%-Water Inj 50 Ml Syringe IV 01/29/24 21:04 Q15MIN PRN BG 50-70 responsive npo pt Dextrose 50 ml 12/30/23 21:05 Dextrose 50%-Water Inj 50 Ml Syringe IV 01/29/24 21:04 Q15MIN PRN BG <50 OR BG <70 & pt unresponsive Diphenhydramine HCl 25 mg 01/03/24 22:21 01/12/24 00:13 Diphenhydramine 25 Mg Capsule PO 02/02/24 22:20 25 mg Q6HR PRN Administration Allergic Symptoms Furosemide 40 mg 01/05/24 14:00 01/12/24 05:35 Furosemide Inj 10 Mg/Ml 4ml Vial IVP 02/04/24 13:59 40 mg TID KARY Administration Gabapentin 300 mg 01/03/24 21:00 01/11/24 22:23 Gabapentin 300 Mg Capsule PO 02/02/24 20:59 300 mg HS KARY Administration Glucagon 1 mg 12/30/23 21:05 Glucagon Inj 1 Mg Vial IM Q15MIN PRN BG <70, and no IV access Heparin Sodium (Porcine) 3,300 unit 01/06/24 14:56 01/07/24 11:09 Heparin Sod Inj 1000 Unit/Ml Vial 10 Ml INDWELLCAT 01/20/24 14:55 3,300 unit PRN PRN Administration DIALYSIS Heparin Sodium (Porcine) 5,000 unit 01/09/24 21:00 01/12/24 08:09 Heparin Sod Inj 5000 Unit/Ml Vial SC 01/23/24 20:59 5,000 unit BID KARY Administration Hydralazine HCl 25 mg 12/31/23 09:00 01/12/24 05:36 Hydralazine Hcl 25 Mg Tablet PO 01/30/24 08:59 25 mg TID KARY Administration Hydroxyzine HCl 25 mg 01/02/24 11:12 01/10/24 20:38 Hydroxyzine Hcl 25 Mg Tablet PO 01/30/24 00:06 25 mg HS PRN Administration insomnia Insulin Human Lispro 0 unit 01/07/24 07:30 01/12/24 07:39 Insulin Lispro (Admelog) 1 Unit/0.01 Ml Unit SC 02/06/24 07:29 1 unit ACHS KARY Administration Protocol Lisinopril 20 mg 01/08/24 09:15 01/12/24 08:08 Lisinopril 20 Mg Tablet PO 02/07/24 09:14 20 mg QDAY KARY Administration Lorazepam 0.5 mg 01/11/24 13:48 01/12/24 08:08 Lorazepam 0.5 Mg Tablet PO 01/16/24 20:59 0.5 mg BID PRN Administration ANXIETY Metoclopramide HCl 5 mg 01/02/24 20:15 01/12/24 05:35 Metoclopramide Inj 5 Mg/Ml Vial 2 Ml IVP 02/01/24 20:14 5 mg Q6HR KARY Administration Protocol Ondansetron HCl 4 mg 12/30/23 20:52 Ondansetron Inj 2 Mg/Ml Inj 2 Ml IV 01/29/24 20:51 Q6H PRN NAUSEA OR VOMITING Protocol Oxycodone/Acetaminophen 1 tab 01/09/24 09:52 01/11/24 22:24 Oxycodone/Apap 5/325 Tablet PO 01/14/24 09:51 1 tab Q6HR PRN Administration PAIN SCALE 4-10(Mod-Sev Pantoprazole Sodium 40 mg 01/07/24 09:00 01/12/24 08:08 Pantoprazole 40 Mg Tablet PO 02/06/24 08:59 40 mg QDAY KARY Administration Polyethylene Glycol 17 gm 01/09/24 11:00 01/11/24 08:21 Polyethylene Glycol 17 Gm Packet PO 02/08/24 10:59 17 gm QDAY KARY Administration Sennosides 1 tab 12/31/23 09:00 01/12/24 08:07 Senna Tablet PO 01/30/24 08:59 1 tab QDAY KARY Administration Protocol Sevelamer Carbonate 800 mg 12/31/23 17:30 01/12/24 08:08 Sevelamer Carbonate 800 Mg Tablet PO 01/30/24 17:29 800 mg TIDWM KARY Administration Zinc Sulfate 220 mg 01/02/24 09:00 01/12/24 08:08 Zinc Sulfate 220 Mg Capsule PO 02/01/24 08:59 220 mg QDAY KARY Administration Plan Tati Costa is a 48-year-old female with past medical history of type 2 diabetes mellitus (insulin-dependent), hypertension, kidney cancer status post partial nephrectomy, and history of right foot osteomyelitis status post debridement and amputations admitted for CHF and left great toe osteomyelitis work-up and management. #Acute on chronic kidney injury #CKD stage IV #Nephrotic syndrome Patient presented with poor kidney function, BUN, creatinine elevated above baseline. Patient has history of CHF, appears to be in CHF exacerbation clinically based on reported symptoms of orthopnea, exam findings of bilateral lower extremity edema increased compared to baseline per patient. Renal ultrasound showed no hydronephrosis or renal stones. BLE mildly improved with diuresis. Urine protein/creatinine 16.6 g Had a long conversation with patient regarding progressive diabetic nephropathy, proteinuria, anasarca and significant fluid overload. On diuretics. Worsening renal function. GFR less than 15. Patient agreed for dialysis. Will plan on Friday. IR closed Friday. First dialysis session completed without incident. Patient has continued to tolerate dialysis well. Arranging outpatient dialysis, options limited by patient's insurance. Plan: -No dialysis today -Renally dose medications -Avoid nephrotoxic meds -Follow daily labs -Diuretics: Continue with Lasix daily -Arrange outpatient dialysis # ?New onset CHF//diabetic nephropathy #Anasarca #Osteomyelitis, left great toe #History of osteomyelitis, right foot #Type 2 diabetes mellitus, insulin-dependent #Hypertension #Hypertensive urgency Plan as per primary team Thank you for allowing me to participate in the care of this patient. Plan of care discussed with attending Dr. Moreland. Lane Kenney MD PGY-1 Attending Provider Attestation/Addendum Patient seen and examined with resident physician Dr. Kenney. Note reviewed, agree with findings and recommendations. Next dialysis scheduled for Friday
--- NOTE | 2024-01-12 11:00 | PC.SS ---
SS spoke to Chas at [facility] [phone] who stated to contact the Admissions Team at [phone] SS spoke to another Chas with Admissions who stated pt has been assigned to Coordinator: Muna Trejo ext: [phone] pt also assigned Reference #[id number] (SS was informed when sending any fax to attach this reference number to expedite the process) Per Chas we are still pending Hep B Surface Antibody-SS contacted Team and spoke to Dr. Garvey who stated he put the order in. Chas in Admissions also stated they are establishing a chair time at the [place] location. SS informed Chas when speaking to the pt shes already expressed concern with establishing transportation to [place] location. If there is anyway we can establish [place] vs [place]. Chas stated they have availability for [place] and they will make that change still pending insurance auth.
--- NOTE | 2024-01-12 11:43 | PC.SS ---
SS attempted to make over the phone contact with pt insurance [facility] [phone], no answer. VM left with call back information.
--- NOTE | 2024-01-12 11:44 | PC.SS ---
SS met with pt at bedside to discuss insurance barrier for HD for [facility], SS explained to pt SS spoke to [facility] that if accepted and pt wishes to change insurance plans and transfer to [facility] they can assist her in doing so as it is her right to change clinics, at this point we are still pending establishment with [facility]. Pt expressed understanding. SS informed pt SS has reached out to insurance to inquire on transportation services they may have accessible to the pt, pending a call back.
[2024-01-12] MEDS: ACETAMINOPHEN 325 MG TABLET 650 MG PO (12:09)
[2024-01-12 12:29] LABS: Hepatitis B Surface Ab Reactive (Immune) (Immune)
--- NOTE | 2024-01-12 13:47 | PC.SS ---
[employer] Surface Antibody resulted and lab report sent via Fax to [facility] at F# [phone] Ref# [id number]
--- NOTE | 2024-01-12 17:33 | ESPR_ITS ---
<Statement entered by Andres Crump MD - 01/13/24 07:35> Senior Resident Attestation: I supervised/discussed management plan with resident physician Dr. Savage, and was involved in the care of this patient. I personally saw and examined the patient and discussed the assessment and plan with the entire medicine team, including my attending. Patient's care was discussed with attending physician, Dr. Larry Crump MD PGY-3 Documentation for date of: 01/12/24 Subjective Subjective Interval history: Absence of acute overnight events. Patient no longer endorses any itchiness. Patient seen and examined at bedside this morning. Labs reviewed. Patient's lower extremities are no longer swollen. Clear on auscultation bilaterally all lung lobes. Breathing comfortably 95% on 4 L nasal. Dialysis to be continued tomorrow 01/13/2024, per nephrology. Patient is pending dialysis chair in outpatient setting. Exam Vital Signs Temp Pulse Resp BP Pulse Ox O2 Del Method O2 Flow Rate 98.9 F 67 17 139/66 H 95 Nasal Cannula 4 01/12/24 16:00 01/12/24 16:00 01/12/24 16:00 01/12/24 16:00 01/12/24 16:00 01/12/24 16:00 01/12/24 16:00 Narrative Exam Constitutional: obese, well-developed, legally blind female. HEENT: NCAT, reactive round pupils b/l, saturating at 96% on 2 L NC. Lung: CTAB, no wheezing, no rhonchi, no crackles. Heart: Regular S1S2, no murmurs. Abdomen: Soft, non-tender, Normoactive bowel sounds. Extremities: No cyanosis, No upper extremity edema. No pitting edema b/l lower extremities. Wound gauze wrapped around left foot s/p amputation of great toe. Right 3rd through 4th digits amputated. Neurologic: Generally alert and oriented to person, place, time. Skin: Warm, dry. Pinpoint rash adjacent to the left posterior axilla. Objective Labs 01/12/24 04:50 01/12/24 04:50 Labs: Laboratory Results - last 24 hr 01/12/24 01/12/24 04:50 11:46 WBC 10.8 RBC 2.97 L Hgb 8.7 L Hct 27.7 L MCV 93 MCH 29.3 MCHC 31.4 RDW Std Deviation 46.5 H Plt Count 266 D Neut % (Auto) 64 Lymph % (Auto) 19 Christian % (Auto) 12 Eos % (Auto) 2 Baso % (Auto) 1 Neut # (Auto) 6.9 Lymph # (Auto) 2.0 Christian # (Auto) 1.3 H Eos # (Auto) 0.2 Baso # (Auto) 0.1 Immature Gran # (Auto) 0.42 H Absolute Nucleated RBC 0.00 Immature Gran % 4 H Nucleated RBC % 0 Sodium 138 Potassium 3.9 Chloride 102 Carbon Dioxide 25.6 Anion Gap 10 BUN 38 H Creatinine 3.5 H D Estim Creat Clear Calc 22.3 L eGFR 15 L BUN/Creatinine Ratio 11 L Glucose 169 H Calculated Osmolality 288 Calcium 8.7 Corrected Calcium 9.0 Total Bilirubin 0.2 L AST 13 ALT 12 Alkaline Phosphatase 307 H D Total Protein 6.6 Albumin 3.6 Globulin 3.0 Albumin/Globulin Ratio 1.2 Hep Bs Antibody Reactive (Immune) Quality Measures Quality Measures VTE prophylaxis Assessment & Plan Assessment Current Active Medications: Generic Name Dose Route Start Last Admin Trade Name Freq PRN Reason Stop Dose Admin Acetaminophen 650 mg 01/01/24 08:16 01/12/24 12:09 Acetaminophen 325 Mg Tablet PO 01/29/24 20:51 650 mg Q6H PRN Administration MILD PAIN (1-3) OR FEVER > 101 Amlodipine Besylate 10 mg 12/31/23 09:00 01/12/24 08:07 Amlodipine Besylate 5 Mg Tablet PO 01/30/24 08:59 10 mg QDAY KARY Administration Ascorbic Acid 500 mg 01/01/24 21:00 01/12/24 08:08 Ascorbic Acid 250 Mg Tablet PO 01/31/24 20:59 500 mg BID KARY Administration Carvedilol 25 mg 01/02/24 17:30 01/12/24 08:08 Carvedilol 12.5 Mg Tablet PO 02/01/24 17:29 25 mg BIDWM KARY Administration Dextrose 25 ml 12/30/23 21:05 Dextrose 50%-Water Inj 50 Ml Syringe IV 01/29/24 21:04 Q15MIN PRN BG 50-70 responsive npo pt Dextrose 50 ml 12/30/23 21:05 Dextrose 50%-Water Inj 50 Ml Syringe IV 01/29/24 21:04 Q15MIN PRN BG <50 OR BG <70 & pt unresponsive Diphenhydramine HCl 25 mg 01/03/24 22:21 01/12/24 00:13 Diphenhydramine 25 Mg Capsule PO 02/02/24 22:20 25 mg Q6HR PRN Administration Allergic Symptoms Furosemide 40 mg 01/05/24 14:00 01/12/24 14:31 Furosemide Inj 10 Mg/Ml 4ml Vial IVP 02/04/24 13:59 40 mg TID KARY Administration Gabapentin 300 mg 01/03/24 21:00 01/11/24 22:23 Gabapentin 300 Mg Capsule PO 02/02/24 20:59 300 mg HS KARY Administration Glucagon 1 mg 12/30/23 21:05 Glucagon Inj 1 Mg Vial IM Q15MIN PRN BG <70, and no IV access Heparin Sodium (Porcine) 3,300 unit 01/06/24 14:56 01/07/24 11:09 Heparin Sod Inj 1000 Unit/Ml Vial 10 Ml INDWELLCAT 01/20/24 14:55 3,300 unit PRN PRN Administration DIALYSIS Heparin Sodium (Porcine) 5,000 unit 01/09/24 21:00 01/12/24 08:09 Heparin Sod Inj 5000 Unit/Ml Vial SC 01/23/24 20:59 5,000 unit BID KARY Administration Hydralazine HCl 25 mg 12/31/23 09:00 01/12/24 14:34 Hydralazine Hcl 25 Mg Tablet PO 01/30/24 08:59 25 mg TID KARY Administration Hydroxyzine HCl 25 mg 01/02/24 11:12 01/10/24 20:38 Hydroxyzine Hcl 25 Mg Tablet PO 01/30/24 00:06 25 mg HS PRN Administration insomnia Insulin Human Lispro 0 unit 01/07/24 07:30 01/12/24 11:40 Insulin Lispro (Admelog) 1 Unit/0.01 Ml Unit SC 02/06/24 07:29 2 unit ACHS KARY Administration Protocol Lisinopril 20 mg 01/08/24 09:15 01/12/24 08:08 Lisinopril 20 Mg Tablet PO 02/07/24 09:14 20 mg QDAY KARY Administration Lorazepam 0.5 mg 01/11/24 13:48 01/12/24 08:08 Lorazepam 0.5 Mg Tablet PO 01/16/24 20:59 0.5 mg BID PRN Administration ANXIETY Metoclopramide HCl 5 mg 01/02/24 20:15 01/12/24 12:08 Metoclopramide Inj 5 Mg/Ml Vial 2 Ml IVP 02/01/24 20:14 5 mg Q6HR KARY Administration Protocol Ondansetron HCl 4 mg 12/30/23 20:52 Ondansetron Inj 2 Mg/Ml Inj 2 Ml IV 01/29/24 20:51 Q6H PRN NAUSEA OR VOMITING Protocol Oxycodone/Acetaminophen 1 tab 01/09/24 09:52 01/11/24 22:24 Oxycodone/Apap 5/325 Tablet PO 01/14/24 09:51 1 tab Q6HR PRN Administration PAIN SCALE 4-10(Mod-Sev Pantoprazole Sodium 40 mg 01/07/24 09:00 01/12/24 08:08 Pantoprazole 40 Mg Tablet PO 02/06/24 08:59 40 mg QDAY KARY Administration Polyethylene Glycol 17 gm 01/09/24 11:00 01/12/24 12:50 Polyethylene Glycol 17 Gm Packet PO 02/08/24 10:59 Not Given QDAY KARY Sennosides 1 tab 12/31/23 09:00 01/12/24 08:07 Senna Tablet PO 01/30/24 08:59 1 tab QDAY KARY Administration Protocol Sevelamer Carbonate 800 mg 12/31/23 17:30 01/12/24 12:09 Sevelamer Carbonate 800 Mg Tablet PO 01/30/24 17:29 800 mg TIDWM KARY Administration Zinc Sulfate 220 mg 01/02/24 09:00 01/12/24 08:08 Zinc Sulfate 220 Mg Capsule PO 02/01/24 08:59 220 mg QDAY KARY Administration Plan 48-year-old female with past medical history of type 2 diabetes mellitus (insulin-dependent), hypertension, kidney cancer status post partial nephrectomy, and history of right foot osteomyelitis status post debridement and amputations. Found to be septic with HR 104, WBC elevated, Cr at 3.0. Admitted for CHF and left great toe osteomyelitis work-up and management. Ultrasound- guided thoracentesis showed small bilateral perfusion, no drainage done.Found to have low hemoglobin at 7.1. On 01/03/2024, 1 unit packed red blood cells transfused. GI was consulted, status post EGD, s/p colonoscopy showed hemorrhoids and diverticulosis, no acute bleeding. S/p Dialysis catheter placement, now on scheduled dialysis per financial supervisor. Patient is pending outpatient chair time. #New onset ESRD on dialysis #Nephrotic syndrome #Renal cell carinoma Elevated creatinine/low GFR currently worsening in setting of nephrotic syndrome, requiring dialysis. Renal ultrasound showed: Right kidney 12.3 x 7.2 x 7.1 cm cortex 2.2 cm. Right kidney 11.8 x 6.2 x 5.7 cm cortex 2.3 cm. No hydronephrosis or renal calculi. Bladder prevoid volume 2 87 cc unable to void. Urine random total protein 382. Urine random creatinine 23. Urine random sodium 96. Considering patient's worsening kidney function, she started dialysis during this hospitalization. Patient appears to tolerate dialysis well. Creatinine 3.5, GFR 15. Plan: -Nephrology on board; recommends increase bed to chair time. -arranging outpatient dialysis, options limited by patient's insurance. -Continue inpatient dialysis per schedule; dialysis tomorrow 01/13/2024 -Follow-up renal panel -Avoid nephrotoxic agents #HFpEF EF 60 to 65% Patient presented with shortness of breath,orthopnea,and PND, requiring oxygen. Oxygen requirement is stable at 4L/min. Patient's lower extremities no longer edematous and clear on auscultation all lung lobes bilaterally. Chest x-ray showed mild chronic heart failure, prominent vascular congestion. Suspect hypertension and obesity led to heart failure, but currently heart failure is compensated with aggressive diuresis. Echo 06/22/2023: EF 60-65%, trace MR, AR, and mild TR. BNP mildly elevated at 165, troponin negative. NYHA class III. Echo: Normal LV size and function. Estimated EF 60-65%. Mild LVH. Diatsolic dysfunction stage 1 Normal RV size and function. Mild MR, TR. There is a small circumferential pericardial effusion. No evidence of cardiac tamponade. Plan: -Lasix 40 mg IV three times daily, per nephrology recc's -Fluid restriction (1.2 L), daily weight checks, Strict I & O -CMP in am #Diverticulosis #Hemorrhoids #Gastritis #Esophagitis #Nonerosive lesion at GE junction #Normocytic anemia #Status post EGD 01/02/24 #S/p colonoscopy 01/05/2024 Patient suffers from constipation. She has never had a colonoscopy. Denies dizziness or generalized weakness. EGD 01/01 showed gastritis, esophagitis, nonerosive lesions at the GE junction.No bleeding source. Colonoscopy 03/06/2023 showed hemorrhoids and diverticulosis in the sigmoid and the descending colon. No bleeding. Cannot rule out colon cancer in setting renal cell carcinoma hx, requires pathology report. Stool negative for WBCs. Ferritin normal limits. Plan: -Gastroenterology consulted, recommends high-fiber diet and outpatient follow-up with gastroenterology clinic in 2 weeks -Monitor CBC #Osteomyelitis, left great toe #History of osteomyelitis, right foot #S/p left 1st metatarsal amputation on 01/01/2024 Patient presented with pain in the left foot, found to have left great toe OM, requiring amputation. XR and MRI of the left foot showed osteomyelitis of the proximal and distal phalanges first digit. Distal metatarsal head division and transmetatarsal amputation performed by general surgeon. Blood culture prelim negative x2. Wound culture does not seem to have been collected during amputation. Wound dehiscence noted on left foot s/p amputation. Infectious disease was consulted; recommended oral antibiotics for a few days (4-5d) after amputation--completed General surgery consulted; recommended amputation-- completed. Plan: -Pain: Oxycodone -Wound care Antimicrobials: Keflex 500 mg every 8 hours (01/03/2024- 01/07/2024). Doxycycline 100 mg IV BID (12/29-12/31) and Ceftriaxone 2gm daily (12/31/2023- 01/01/24). #Hypertension Chronic, uncontrolled BP is well controlled. Her elevated blood pressure is likely secondary to pain. Plan: -Lisinopril 20 mg and Coreg 25mg BID WM -Continue Amlodipine 10 mg daily and Hydralazine 25 mg TID oral #Type 2 diabetes mellitus, insulin-dependent (A1c 9.7%) #Obesity Chronic, uncontrolled Glucose is currently controlled. Patient home lantus 30 units daily. Plan: -SSI lispro -Bedside glucose checks -Hypoglycemic protocol #Diabetic neuropathy Hx of Diabetic neuropathy on gabapentin. ?Gabapentin 300 mg orally daily. #Hypertriglyceridemia Secondary to obesity Triglycerides 156, cholesterol 146, LDL 69, HDL 47 Plan: -F/up outpatient #Elevated Alkaline phosphatase Possibly 2/2 cancer and possible mets Alkaline phosphatase 527. #Polysubstance use Patient has a history of methamphetamine and marijuana use. She states that she uses methamphetamines once weekly and marijuana daily. U tox positive for opiates, thiamine, marijuana. -F/up outpatient #Unspecified Rash, resolved #CHF exacerbation, resolved #Sepsis -resolved #Hyperkalemia, resolved #Hyperphosphatemia- resolved #Metabolic acidosis, resolved #Mild transaminitis-resolved #Hyperchloremia, resolved #Hypertensive urgency, resolved #B/L Pleural effusion, resolved DVT prophylaxis: Heparin SC GI prophylaxis: Pantoprazole 40 mg PO daily Diet: Renal Lines: Peripheral IV Code status: Full Code Discussed case with my attending Dr. Juarez and senior Andres Crump, PGY-3. Thank you, Jennifer Savage, PGY-2 Attending Provider Attestation/Addendum I have discussed and was present for the essential components of the history, physical examination, diagnosis, and treatment plan with the resident. I agree with the patient's care as documented by the resident and amended herein by me. Sebastian Juarez, DO. Patient seen and evaluated this AM. Patient clinically doing well this morning, denies any further episodes of pruritus overnight. Insurance authorization still pending for hemodialysis chair, likely will be at [facility] in [place]. The patient is on board with this plan, ready for discharge once chair time is established Although this document has been carefully reviewed, there may still be some phonetic and other typographical errors. These errors are purely grammatical due to imperfections in the software program and should not be construed in any way to compromise the substance of the patient's medical care during this visit.
[2024-01-12] MEDS: hydrOXYzine HCL 25 MG TABLET PO (20:58)
[2024-01-12] MEDS: GABAPENTIN 300 MG CAPSULE PO (20:58)
[2024-01-13] VITALS (27 sets, daily range): BP systolic 129–168; BP diastolic 57–82; PULSE 58–73; RESP 17–98; TEMP 36.3–36.9; O2SAT 95–96
[2024-01-13] MEDS: HYDROcodone/APAP 5/325 TABLET 1 TAB PO ×2 (03:06→13:22)
[2024-01-13] MEDS: DiphenhydrAMINE 25 MG CAPSULE PO (03:06)
[2024-01-13] MEDS: ONDANSETRON INJ 2 MG/ML INJ 2 ML 4 MG IV (04:08)
[2024-01-13] MEDS: hydrALAZINE HCL 25 MG TABLET PO ×2 (05:33→13:20)
[2024-01-13] MEDS: FUROSEMIDE INJ 10 MG/ML 4ML VIAL 40 MG IVP ×2 (05:34→13:22)
[2024-01-13] MEDS: METOCLOPRAMIDE INJ 5 MG/ML VIAL 2 ML IVP ×2 (05:35→11:32)
[2024-01-13 05:56] LABS: Basophils # (Auto) 0.1 Thou/mm3 (0.0-0.2); Basophils % (Auto) 1 % (0-2.5); Eosinophils # (Auto) 0.2 Thou/mm3 (0.0-0.5); Eosinophils % (Auto) 2 % (0-10); Hematocrit 29.1 % (36.0-46.0); Hemoglobin 9.3 g/dL (12.0-16.0); Immature Granulocytes % (Auto) 4 % (0-0); Immature Granulocytes Auto 0.43 Thou/mm3 (0.00-0.00); Lymphocytes # (Auto) 1.6 Thou/mm3 (1.0-4.8); Lymphocytes % (Auto) 14 % (10-50); Mean Corpuscular Hemoglobin 29.4 pg (25.0-35.0); Mean Corpuscular Volume 92 fL (80-100); Monocytes # (Auto) 1.5 Thou/mm3 (0.0-0.8); Monocytes % (Auto) 13 % (0-12); Neutrophils # (Auto) 7.7 Thou/mm3 (1.8-7.7); Neutrophils % (Auto) 67 % (37-80); Nucleated Red Blood Cell % 0 /100 WBC (0); Platelet Count 293 Thou/mm3 (140-440); RDW Standard Deviation 47.4 fL (36.4-46.3); Red Blood Count 3.16 Miln/mm3 (4.00-5.20); White Blood Count 11.4 Thou/mm3 (3.6-11.0)
[2024-01-13 06:16] LABS: Alanine Aminotransferase 13 U/L (10-49); Albumin, Serum 3.9 gm/dL (3.5-5.0); Albumin/Globulin Ratio 1.2 (1.2-2.2); Alkaline Phosphatase 296 U/L (46-116); Anion Gap 7 (7-16); Aspartate Amino Transferase 18 U/L (0-34); BUN/Creatinine Ratio 12 Ratio (12-20); Bilirubin,Total 0.2 mg/dL (0.3-1.2); Blood Urea Nitrogen 44 mg/dL (9-23); Calcium 9.1 mg/dL (8.3-10.6); Calcium (Corrected) 9.2 mg/dL (8.5-10.1); Carbon Dioxide 27.4 mMol/L (20.0-31.0); Chloride 102 mMol/L (98-107); Creatinine (Component) 3.7 mg/dL (0.6-1.3); Estimated Creatinine Clearance 21.1 mL/min (>60); Globulin 3.3 gm/dL (2.3-3.5); Glucose 168 mg/dL (74-106); Osmolality,Calculated 287 (275-295); Potassium 4.2 mMol/L (3.4-5.1); Sodium 136 mMol/L (136-145); Total Protein 7.2 gm/dL (5.7-8.2); eGFR 14 See Note
[2024-01-13] MEDS: INSULIN LISPRO (AdmeLOG) 1 UNIT/0.01 ML UNIT SC ×2 (07:26→11:43)
[2024-01-13] MEDS: LORazepam 0.5 MG TABLET PO (07:59)
--- NOTE | 2024-01-13 08:01 | PC.NURSE ---
Pt co some anxierty. Lorazepam 0.5 mg PO given.
--- NOTE | 2024-01-13 10:31 | PD.RESPRO ---
Documentation for date of: 01/13/24 Subjective Subjective Interval history: Ms. Costa is a 48 y/o F with PMHx significant for type 2 diabetes mellitus (insulin-dependent), hypertension, kidney cancer status post partial nephrectomy, and history of right foot osteomyelitis status post debridement and amputations now presents with shortness of breath and left great toe pain. Patient states that she has been short of breath for last couple of days, endorsing orthopnea and PND with associated bilateral lower extremity edema, bilateral upper extremity edema, and swelling around the eyes and tongue. She denies chest pain, pressure, and tightness. Also reports pain in left great toe initially with purulent drainage, now with serosanguineous material on bed sheets in ED. Denies fever and chills but endorses sweats. Otherwise denies dysuria, hematuria, or foul-smelling urine. Labs at time of admission showed BUN 48 (baseline 19?22), Product Handler 3.0 (baseline 1.5), GFR 18. Chest x-ray showed heart failure pattern, bibasilar pneumonia, moderate left and large right pleural effusions. X-ray of left foot showed significant osteo of distal phalanx of first digit. Patient admitted for CHF exacerbation and left toe osteomyelitis. Nephrology was consulted due to KIM on CKD. Patient seen in ED resting in bed. Patient had bilateral lower extremity edema, worse than usual per patient. Lungs clear to auscultation, poor lung sounds due to body habitus. Labs at time of exam showed sodium 136, potassium 5.5, bicarb 16.3, BUN 51, creatinine 3.0, eGFR 18. Plan for additional diuretics, suspect cardiorenal syndrome due to fluid overload state. 12/31: Patient seen resting comfortably in bed. Patient has lower extremity edema, mildly improved. Lungs clear to auscultation, poor lung sounds due to body habitus. Sodium 138, potassium 4.3, bicarb 20.1, BUN 55, creatinine 2.4, eGFR 16. Plan for amputation of left great toe later today. 01/05/2024 patient currently seen in medical floor. She is blind from diabetic retinopathy. She has severe progressive diabetic nephropathy with nephrotic range proteinuria and nephrotic syndrome with significant anasarca. On diuretics. GFR declining. Had a long conversation with patient regarding renal replacement therapy as her GFR is less than 15 and she agreed for dialysis if indicated. Currently on diuretics. Cannot give any fluids due to anasarca. Labs, medications reviewed. Will proceed with dialysis in a.m. Patient complaining of significant edema. Will increase the Lasix to 3 times daily. Plan of care discussed with primary team. 01/11/2024 patient currently seen in medical floor. Due to her insurance reasons patient needs to go to [place] [facility] dialysis. She is very reluctant as she has no ride. Patient wants to switch to [facility] and wants to come to portable dialysis unit. Conveyed the same to primary team. Complaining of extreme anxiety. Ativan ordered. Patient currently on high doses of Benadryl,Hydroxyzine and did receive 1 dose of Versed yesterday with no improvement in anxiety. Labs, medications reviewed. Hemoglobin 8.7, creatinine 2.6-patient did receive dialysis yesterday.Corral catheter was removed. Patient might need only twice weekly dialysis for now. 01/12/2024 Patient seen and examined on the medical floor. Patient resting comfortably in bed. States ativan has been controlling anxiety. BUN 38, Creatinine 3.5, eGFR 15. No plans for dialysis today, still arranging outpatient dialysis. 01/13/2024: Patient seen and examined while receiving dialysis. Patient resting comfortably, does not appear anxious. BUN 44, creatinine 3.7, eGFR 14. Still arranging for outpatient dialysis. Patient states she is willing to go to [place] dialysis if needed. Exam Vital Signs Temp Pulse Resp BP Pulse Ox O2 Del Method O2 Flow Rate 97.3 F 59 L 18 154/68 H 96 Room Air 4 01/13/24 07:31 01/13/24 10:30 01/13/24 07:31 01/13/24 10:30 01/13/24 07:31 01/13/24 07:30 01/12/24 16:00 Narrative Exam GENERAL APPEARANCE: Patient appears comfortable. HEENT: Patient blind CARDIOVASCULAR: Heart regular, no murmurs LUNGS/CHEST: Chest clear to auscultation. No rales, rhonchi, wheezing ABDOMEN: Soft, nontender, nondistended. No masses. Normal bowel sounds. EXTREMITIES: Edema in the lower extremities, left greater than right. SKIN: Right 2 toes missing. Left great toe amputated MUSCULOSKELETAL: In bed NEUROLOGICAL : No neurological deficits Objective Labs 01/13/24 05:31 01/13/24 05:31 Labs: Laboratory Results - last 24 hr 01/12/24 01/13/24 11:46 05:31 WBC 11.4 H RBC 3.16 L Hgb 9.3 L Hct 29.1 L MCV 92 MCH 29.4 MCHC 32.0 RDW Std Deviation 47.4 H Plt Count 293 Neut % (Auto) 67 Lymph % (Auto) 14 [place] % (Auto) 13 H Eos % (Auto) 2 Baso % (Auto) 1 Neut # (Auto) 7.7 Lymph # (Auto) 1.6 [place] # (Auto) 1.5 H Eos # (Auto) 0.2 Baso # (Auto) 0.1 Immature Gran # (Auto) 0.43 H Absolute Nucleated RBC 0.00 Immature Gran % 4 H Nucleated RBC % 0 Sodium 136 Potassium 4.2 Chloride 102 Carbon Dioxide 27.4 Anion Gap 7 BUN 44 H Creatinine 3.7 H Estim Creat Clear Calc 21.1 L eGFR 14 L* BUN/Creatinine Ratio 12 Glucose 168 H Calculated Osmolality 287 Calcium 9.1 Corrected Calcium 9.2 Total Bilirubin 0.2 L AST 18 ALT 13 Alkaline Phosphatase 296 H Total Protein 7.2 Albumin 3.9 Globulin 3.3 Albumin/Globulin Ratio 1.2 Hep Bs Antibody Reactive (Immune) Quality Measures Quality Measures VTE prophylaxis Assessment & Plan Assessment Current Active Medications: Generic Name Dose Route Start Last Admin Trade Name Freq PRN Reason Stop Dose Admin Acetaminophen 650 mg 01/01/24 08:16 01/12/24 12:09 Acetaminophen 325 Mg Tablet PO 01/29/24 20:51 650 mg Q6H PRN Administration MILD PAIN (1-3) OR FEVER > 101 Amlodipine Besylate 10 mg 12/31/23 09:00 01/12/24 08:07 Amlodipine Besylate 5 Mg Tablet PO 01/30/24 08:59 10 mg QDAY KARY Administration Ascorbic Acid 500 mg 01/01/24 21:00 01/12/24 20:58 Ascorbic Acid 250 Mg Tablet PO 01/31/24 20:59 500 mg BID KARY Administration Carvedilol 25 mg 01/02/24 17:30 01/12/24 17:48 Carvedilol 12.5 Mg Tablet PO 02/01/24 17:29 25 mg BIDWM KAYR Administration Dextrose 25 ml 12/30/23 21:05 Dextrose 50%-Water Inj 50 Ml Syringe IV 01/29/24 21:04 Q15MIN PRN BG 50-70 responsive npo pt Dextrose 50 ml 12/30/23 21:05 Dextrose 50%-Water Inj 50 Ml Syringe IV 01/29/24 21:04 Q15MIN PRN BG <50 OR BG <70 & pt unresponsive Diphenhydramine HCl 25 mg 01/03/24 22:21 01/13/24 03:06 Diphenhydramine 25 Mg Capsule PO 02/02/24 22:20 25 mg Q6HR PRN Administration Allergic Symptoms Furosemide 40 mg 01/05/24 14:00 01/13/24 05:34 Furosemide Inj 10 Mg/Ml 4ml Vial IVP 02/04/24 13:59 40 mg TID KARY Administration Gabapentin 300 mg 01/03/24 21:00 01/12/24 20:58 Gabapentin 300 Mg Capsule PO 02/02/24 20:59 300 mg HS KARY Administration Glucagon 1 mg 12/30/23 21:05 Glucagon Inj 1 Mg Vial IM Q15MIN PRN BG <70, and no IV access Heparin Sodium (Porcine) 3,300 unit 01/06/24 14:56 01/07/24 11:09 Heparin Sod Inj 1000 Unit/Ml Vial 10 Ml INDWELLCAT 01/20/24 14:55 3,300 unit PRN PRN Administration DIALYSIS Heparin Sodium (Porcine) 5,000 unit 01/09/24 21:00 01/12/24 20:53 Heparin Sod Inj 5000 Unit/Ml Vial SC 01/23/24 20:59 5,000 unit BID KARY Administration Hydralazine HCl 25 mg 12/31/23 09:00 01/13/24 05:33 Hydralazine Hcl 25 Mg Tablet PO 01/30/24 08:59 25 mg TID KARY Administration Hydroxyzine HCl 25 mg 01/02/24 11:12 01/12/24 20:58 Hydroxyzine Hcl 25 Mg Tablet PO 01/30/24 00:06 25 mg HS PRN Administration insomnia Insulin Human Lispro 0 unit 01/07/24 07:30 01/13/24 07:26 Insulin Lispro (Admelog) 1 Unit/0.01 Ml Unit SC 02/06/24 07:29 1 unit ACHS KARY Administration Protocol Lisinopril 20 mg 01/08/24 09:15 01/12/24 08:08 Lisinopril 20 Mg Tablet PO 02/07/24 09:14 20 mg QDAY KARY Administration Lorazepam 0.5 mg 01/11/24 13:48 01/13/24 07:59 Lorazepam 0.5 Mg Tablet PO 01/16/24 20:59 0.5 mg BID PRN Administration ANXIETY Metoclopramide HCl 5 mg 01/02/24 20:15 01/13/24 05:35 Metoclopramide Inj 5 Mg/Ml Vial 2 Ml IVP 02/01/24 20:14 5 mg Q6HR KARY Administration Protocol Ondansetron HCl 4 mg 12/30/23 20:52 01/13/24 04:08 Ondansetron Inj 2 Mg/Ml Inj 2 Ml IV 01/29/24 20:51 4 mg Q6H PRN Administration NAUSEA OR VOMITING Protocol Pantoprazole Sodium 40 mg 01/07/24 09:00 01/12/24 08:08 Pantoprazole 40 Mg Tablet PO 02/06/24 08:59 40 mg QDAY KARY Administration Polyethylene Glycol 17 gm 01/09/24 11:00 01/12/24 12:50 Polyethylene Glycol 17 Gm Packet PO 02/08/24 10:59 Not Given QDAY KARY Sennosides 1 tab 12/31/23 09:00 01/12/24 08:07 Senna Tablet PO 01/30/24 08:59 1 tab QDAY KARY Administration Protocol Sevelamer Carbonate 800 mg 12/31/23 17:30 01/12/24 17:48 Sevelamer Carbonate 800 Mg Tablet PO 01/30/24 17:29 800 mg TIDWM KARY Administration Zinc Sulfate 220 mg 01/02/24 09:00 01/12/24 08:08 Zinc Sulfate 220 Mg Capsule PO 02/01/24 08:59 220 mg QDAY KARY Administration Plan Tati Costa is a 48-year-old female with past medical history of type 2 diabetes mellitus (insulin-dependent), hypertension, kidney cancer status post partial nephrectomy, and history of right foot osteomyelitis status post debridement and amputations admitted for CHF and left great toe osteomyelitis work-up and management. #Acute on chronic kidney injury #CKD stage IV #Nephrotic syndrome Patient presented with poor kidney function, BUN, creatinine elevated above baseline. Patient has history of CHF, appears to be in CHF exacerbation clinically based on reported symptoms of orthopnea, exam findings of bilateral lower extremity edema increased compared to baseline per patient. Renal ultrasound showed no hydronephrosis or renal stones. BLE mildly improved with diuresis. Urine protein/creatinine 16.6 g Had a long conversation with patient regarding progressive diabetic nephropathy, proteinuria, anasarca and significant fluid overload. On diuretics. Worsening renal function. GFR less than 15. Patient agreed for dialysis. Will plan on Friday. IR closed Friday. First dialysis session completed without incident. Patient has continued to tolerate dialysis well. Arranging outpatient dialysis, options limited by patient's insurance. Plan: -Dialysis today -Renally dose medications -Avoid nephrotoxic meds -Follow daily labs -Diuretics: Continue with Lasix daily -Arrange outpatient dialysis # ?New onset CHF//diabetic nephropathy #Anasarca #Osteomyelitis, left great toe #History of osteomyelitis, right foot #Type 2 diabetes mellitus, insulin-dependent #Hypertension #Hypertensive urgency Plan as per primary team Thank you for allowing me to participate in the care of this patient. Plan of care discussed with attending Dr. Moreland. Lane Kenney MD PGY-1 Attending Provider Attestation/Addendum patient seen and examined with resident physician Dr. Kenney. Note reviewed, agree with findings and recommendations with changes made. Patient currently seen on dialysis. Tolerating dialysis without any problems. Hemodialysis for 3 hours, 2K, ultrafiltration 2-3 L, Epogen 6000, no heparin ordered. Plan of care discussed with the dialysis nurse. Please see dialysis flowsheet for further details. Patient will be discharged home today. She is going to follow-up with me in 2 weeks Agreed to go to [facility].
--- NOTE | 2024-01-13 10:40 | PC.SS ---
SS followed up with Joan from [facility] who explained pt has been financially cleared and medically cleared for dialysis chair time. Patient's dialysis is MWF shift 4 schedule starting 01/13 with an arrival at 2:00pm for an on-going 3:30pm chair time. Please advise the patient to bring insurance card, two forms of ID, and home medications to first treatment. SS has spoken to patient's brother Kel, and provided him with Dialysis chair time information & [facility]'s phone # & address. brother is aware pt must arrive at 1:30pm on first day. SS left community resource on patient's chart and bedside nurse is aware. Brother will provide transportation around 3-4pm. SS has also sent referral to [facility].
[2024-01-13] MEDS: HEPARIN SOD INJ 1000 UNIT/ML VIAL 10 ML 3300 UNIT INDWELLCAT (10:55)
[2024-01-13] MEDS: SEVELAMER CARBONATE 800 MG TABLET PO (11:31)
[2024-01-13] MEDS: ACETAMINOPHEN 325 MG TABLET 650 MG PO (11:44)
--- NOTE | 2024-01-13 12:16 | PC.SS ---
Pt explained on Friday she has been using meth for about 20 years. Pt explained she has stopped using meth for about a year at a time then resumes. Pt is open to community resources. SS provided pt with [facility] and talked about the [facility]. Pt states she will contact them. Pt is aware to follow up with her health insurance to make the switch to [facility]. Pt is aware referral was sent to [facility]. SS has informed pt her health insurance is contracted with [employer] in [facility]) and [employer] in [place] is not contracted. Pt is aware the importance to change her health insurance to [facility]. SS also provided pt with [facility] ([facility] [employer]) phone numbers to contact to assist with transitioning her health insurance to [facility].
--- NOTE | 2024-01-13 12:25 | ESDS_ITS ---
Planned Discharge Date 01/13/24 DS: Providers Provider Date of admission: 12/30/23 20:52 Primary care physician: Physician No Primary/Family Admitting Provider: Tk Lucero MD Attending Provider on Admission: Oscar Juarez DO Consults: 12/30/23 20:16 Consult to General Surgery Stat Comment: Consulting Provider: Juana Wiseman 12/30/23 21:05 Consult to Nephrology Stat Comment: Acute on chronic kidney injury Consulting Provider: Dominick Moreland 12/31/23 11:18 Referral Wound Care Routine Comment: 12/31/23 11:32 Consult to Infectious Diseases Routine Comment: Osteomyelitis Consulting Provider: Thomas Morris 01/01/24 16:15 Consult to Gastroenterology Routine Comment: Anemia of 7.1 Consulting Provider: Zenobia Ivy 01/07/24 08:00 Referral Discharge Planning Stat Comment: op dialysis at dialysis 01/08/24 13:53 Referral OP Wound Healing Dept Routine Comment: Instructions: Left great toe amputation site 01/13/24 03:34 Referral [facility] Routine Comment: Attending Provider on DC: Jennifer Savage MD Discharging Provider: Jennifer Savage MD DS: Diagnosis Discharge Diagnosis (1) ESRD (end stage renal disease): Status: Acute (2) Osteomyelitis of great toe: Status: Acute (3) Pleural effusion: Status: Acute Problem List Completed Was Problem List Reviewed/Reconciled?: Yes Hospital Course Hospital Course Hospital course: #New onset ESRD on dialysis #Nephrotic syndrome #Renal cell carinoma #HFpEF EF 60 to 65% #Diverticulosis #Hemorrhoids #Gastritis #Esophagitis #Nonerosive lesion at GE junction #Normocytic anemia #Status post EGD 01/02/24 #S/p colonoscopy 01/05/2024 #Osteomyelitis, left great toe #History of osteomyelitis, right foot #S/p transmetatarsal amputation 01/01/2024 #Hypertension Chronic, uncontrolled #Type 2 diabetes mellitus, insulin-dependent (A1c 9.7%) #Obesity Chronic, uncontrolled #Diabetic neuropathy #Hypertriglyceridemia #Elevated Alkaline phosphatase #Polysubstance use #Unspecified Rash, resolved #CHF exacerbation, resolved #Sepsis -resolved #Hyperkalemia, resolved #Hyperphosphatemia- resolved #Metabolic acidosis, resolved #Mild transaminitis-resolved #Hyperchloremia, resolved #Hypertensive urgency, resolved #B/L Pleural effusion, resolved A pleasant legally blind 48-year-old female with past medical history of type 2 diabetes mellitus (insulin-dependent), hypertension, HFpEF (EF 60-65%) kidney cancer status post partial nephrectomy, and history of right foot osteomyelitis status post debridement and amputations presented in the ED on 12/30/23 for chief complaint of left foot pain with open wound. She was found to be septic with HR 104, WBC elevated, Cr at 3.0, BNP in ED was 165. She was admitted for CHF and left great toe osteomyelitis. XR and MRI of the left foot showed osteomyelitis of the proximal and distal phalanges first digit. General surgery was consulted and completed distal metatarsal head division and transmetatarsal amputation. Blood culture prelim negative x2. IV doxycycline and ceftriaxone given. Infectious disease was consulted; recommended oral Keflex for 5 days after amputation, which she received. Ultrasound-guided thoracentesis showed small bilateral perfusion, no drainage done. Found to have low hemoglobin at 7.1. On 01/03/2024, 1 unit packed red blood cells transfused. GI was consulted who c onducted EGD showing gastritis and colonoscopy showed hemorrhoids and diverticulosis, no acute bleeding. Renal ultrasound showed: Right kidney 12.3 x 7.2 x 7.1 cm cortex 2.2 cm. Right kidney 11.8 x 6.2 x 5.7 cm cortex 2.3 cm. Bladder prevoid volume 2 87 cc unable to void. Urine random total protein 382. Urine random creatinine 23. Urine random sodium 96. Nephrology was consulted and per renal function with GFR <15, recemmended dialysis catheter placement for new onset ESRD. 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 Echo EF 60-65%, trace MR, AR, diatsolic dysfunction stage 1. CHF was treated with lasix, fluid restriction (1.2 L), and strict I & O. Left foot is improving w/appropriate wound care and completed antibiotic course, CHF exacerbation resolved, and outpatient chair time is set up. Patient is now hemodynamically stable and ready for discharge home with outpatient dialysis. Plan: Please take insulin glargine 100 units/ML solution 10 unit subcutaneously at night. Please take insulin glargine 100 units/mL insulin pen 10 units subcutaneously at night. Please use [employer] zoey 2 reader and sensor for glucose measured once daily. Please take gabapentin 1000 mg orally 3 times daily Please take hydroxyzine 25 mg orally at night as needed for insomnia. Please use blood pressure monitor to measure blood pressure once daily. Please follow up with PCP in 1-2 weeks. Please follow up with wound care in 5 to 7 days. Please follow wound care instructions as stated below. If symptoms return or worsen, please return to the ED. Please follow up outpatient follow-up with gastroenterology clinic in 2 weeks. Cardiology recommends to start high-fiber diet and nephrology recommends renal diet. Follow up and make an appointment with Infectious disease Dr. Anastasia Cox MD at: [facility] [address] [place] [address] SS has scheduled pt an appointment with Resident Physician, Dr. Arreguin at [facility] for January 09, 2024 at 9:30am. Dialysis is Friday shift 4 schedule starting 01/13 with an arrival at 2:00pm for an on-going 3:30pm chair time. Please advise the patient to bring insurance card, two forms of ID, and home medications to first treatment. Jan 14, 2024 arrive at 1:30pm [facility]: [address] [place] [address] phone# [phone] Please do the followin) Non weight bearing to left lower extremity x 6 weeks. 2) Follow up at [facility], [address] [place] [address]. Call [phone] for appointment. 3) Wound care to left great toe: may shower than change dressing. Wash hands with soap and water. Cleanse wound with wound cleanser spray, express irrigation and pat dry. Wash hands again. Pack wound with 1/2 in strip packing until wound cavity full leaving approx 2cm outside for removal. Cover with dry gauze and secure with kerlix roll. change daily and as needed for falling off or soiling. Discussed case with my attending Dr. Lucero and senior Andres Crump, PGY-3. Thank you, Jennifer Savage, PGY-2 Time Spent with Patient Time attestation: Total time spent providing and/or coordinating discharge services: Exam Vital Signs Temp Pulse Resp BP Pulse Ox O2 Del Method O2 Flow Rate 98 F 64 17 129/62 95 Room Air 4 01/13/24 12:00 01/13/24 12:00 01/13/24 12:00 01/13/24 12:00 01/13/24 12:00 01/13/24 12:00 01/12/24 16:00 Narrative Exam Constitutional: obese, well-developed, legally blind female, sitting up in chair while eating lunch on tray table. HEENT: NCAT, reactive round pupils b/l, saturating at 96% on 4 L NC. Lung: CTAB, no wheezing, no crackles. Heart: Regular S1S2, no murmurs. Abdomen: Soft, non-tender. Extremities: No cyanosis, No upper extremity edema. No pitting edema b/l lower extremities. Wound gauze wrapped around left foot s/p amputation of great toe. Right 3rd through 4th digits amputated. Neurologic: Generally alert and oriented to person, place, time. Skin: Warm, dry. No lesions noted. Discharge Plan Plan Patient Disposition: HOME (Self Care) Patient condition on transfer: Stable Care Plan Goals: Please take insulin glargine 100 units/ML solution 10 unit subcutaneously at night. Please take insulin glargine 100 units/mL insulin pen 10 units subcutaneously at night. Please use [employer]az[employer] zoey 2 reader and sensor for glucose measured once daily. Please take gabapentin 1000 mg orally 3 times daily Please take hydroxyzine 25 mg orally at night as needed for insomnia. Please use blood pressure monitor to measure blood pressure once daily. Please follow up with PCP in 1-2 weeks. Please follow up with wound care in 5 to 7 days. Please follow wound care instructions as stated below. If symptoms return or worsen, please return to the ED. Follow up and make an appointment with Infectious disease Dr. Anastasia Cox MD at: [facility] [address] [place] [address] SS has scheduled pt an appointment with Resident Physician, Dr. Arreguin at [facility] for January 09, 2024 at 9:30am. Dialysis is Friday shift 4 schedule starting 01/13 with an arrival at 2:00pm for an on-going 3:30pm chair time. Please advise the patient to bring insurance card, two forms of ID, and home medications to first treatment. Jan 14, 2024 arrive at 1:30pm [facility] [address] [place] [address] phone# [phone] Please do the followin) Non weight bearing to left lower extremity x 6 weeks. 2) Follow up at [facility], [address] [place] [address]. Call [phone] for appointment. 3) Wound care to left great toe: may shower than change dressing. Wash hands with soap and water. Cleanse wound with wound cleanser spray, express irrigation and pat dry. Wash hands again. Pack wound with 1/2 in strip packing until wound cavity full leaving approx 2cm outside for removal. Cover with dry gauze and secure with kerlix roll. change daily and as needed for falling off or soiling. Prescriptions/Referrals Prescriptions/Med Rec: New (DME) FreeStyle Zoey [place] [facility] [place] Instructions .Route Qty: 1 2RF Rx Instructions: As directed; once daily insulin glargine 100 unit/mL solution 10 unit subcut QPM Qty: 10 4RF insulin glargine 100 unit/mL (3 mL) insulin pen 10 unit subcut QPM Qty: 15 4RF (DME) FreeStyle Zoey 2 Sensor Kit See Rx Instructions .Route Qty: 1 3RF Rx Instructions: As directed once daily Continued gabapentin 600 mg Tablet 1,200 mg PO TID (DME) insulin syringe-needle U-100 [BD Insulin Syringe] 1 mL 28 gauge x 1/2 syringe See Rx Instructions .ROUTE .MEDSUPPLY Qty: 100 0RF Rx Instructions: As directed hydroxyzine HCl 25 mg tablet 25 mg PO HS PRN (Reason: insom) Qty: 30 0RF (DME) blood pressure monitor [Blood Pressure Kit] Kit See Rx Instructions .Route Qty: 1 0RF Rx Instructions: As directed Discontinued insulin glulisine U-100 100 unit/mL insulin pen 10 unit subcut TIDWM 30 Days Qty: 15 1RF Referrals: No Primary/Family,Physician [Primary Care Provider] - Patient/Caregiver Discharge Instructions Other Discharge Activity Instructions:: 1) Non weight bearing to left lower extremity x 6 weeks. 2) Follow up at [facility], [address] [place] [address]. Call [phone] for appointment. 3) Wound care to left great toe: may shower than change dressing. Wash hands with soap and water. Cleanse wound with wound cleanser spray, express irrigation and pat dry. Wash hands again. Pack wound with 1/2 in strip packing until wound cavity full leaving approx 2cm outside for removal. Cover with dry gauze and secure with kerlix roll. change daily and as needed for falling off or soiling. Education Materials: Thoracentesis Dc, Nutrition for Wound Healing, Incision Care Dc, Discharge Instructions Wound ..., Preventing Surgical Site Infections Print Language: Bengali Stand Alone Forms: [employer] Award Info., Patient Portal Info Letter Discharge Order Discharge Orders: Discharge (Routine); Ordered 01/13/24 Ordered By: Jennifer Savage Quality Discharge Quality Measures VTE prophylaxis MD Attestestation MD Attestation I reviewed labs, imaging, EKG, home medications and prior available records. Face to face evaluation was performed by me. I have personally examined the patient and discussed assessment and plan with the IM team. I reviewed the resident note and agree with the plan with exceptions as below. ESRD on hemodialysis: Patient finally got her hemodialysis chair. She will continue hemodialysis as outpatient. Outpatient follow-up with nephrology. Osteomyelitis of left foot: Status post toe amputation. Finished a course of antibiotics postoperatively. Continue wound care. Continue strict diabetic control. Uncontrolled diabetes mellitus with hyperglycemia: Insulin-dependent. Will discharge on insulin. Monitor fingersticks. Time spent is 40 minutes. More than 50% of the time was spent on patient education and coordination of care.
--- NOTE | 2024-01-13 12:50 | PC.NURSE ---
called md for pain meds
--- NOTE | 2024-01-13 13:01 | PC.NURSE ---
family will be here until 4pm for education on wound care and discharge pickup
--- NOTE | 2024-01-13 15:42 | CHAP ---
09:30 AM Visited by spiritual care volunteer Provided prayer for Patient
--- NOTE | 2024-01-13 15:55 | PC.SS ---
SS has spoke to patient's brother earlier who confirmed he will provide transportation around 3 or 4. Pt also spoke to brother who confirmed he will provide transport. Bedside nurse, Colleen confirmed with brother he will provide transport today and is aware nurse will teach him how to do the dressing changes.
--- NOTE | 2024-01-13 16:20 | PC.SS ---
SS provided [employer]'s phone# [phone] if needed.
--- NOTE | 2024-01-13 16:50 | PC.NURSE ---
educated family on wound care and gave discharge instructions
== END 2024-01-13 17:12 | disposition home or self-care (01) | DRG 305 ==
LOC: SERX 20:18 → SERHOLD 21:26 → S3SX 12-31 16:37
PROVIDERS: Internal Medicine; Radiology Diagnostic Radiology; Specialist; Student in an Organized Health Care Education/Training Program; Surgery; Admitting Provider Student in an Organized Health Care Education/Training Program; Emergency Provider Emergency Medicine; Visit Provider Student in an Organized Health Care Education/Training Program
PROC: 0Y6N0Z4 Detachment at Left Foot, Complete 1st Ray, Open Approach (ICD-10-PCS; CPT 28820; principal; 2024-01-01 11:00)
PROC: 0DJ08ZZ Inspection of Upper Intestinal Tract, Via Natural or Artificial Opening Endoscopic (ICD-10-PCS; CPT 43239; principal; 2024-01-02 19:00)
PROC: 0DJD8ZZ Inspection of Lower Intestinal Tract, Via Natural or Artificial Opening Endoscopic (ICD-10-PCS; CPT 45378; principal; 2024-01-05 19:30)
DX: E11.69 Type 2 diabetes mellitus with other specified complication (principal); E11.22 Type 2 diabetes mellitus with diabetic chronic kidney disease; M86.172 Other acute osteomyelitis, left ankle and foot; E11.52 Type 2 diabetes mellitus with diabetic peripheral angiopathy with gangrene; H54.8 Legal blindness, as defined in USA; F15.10 Other stimulant abuse, uncomplicated; N17.9 Acute kidney failure, unspecified; I16.0 Hypertensive urgency; N39.0 Urinary tract infection, site not specified; E66.9 Obesity, unspecified; E11.42 Type 2 diabetes mellitus with diabetic polyneuropathy; E11.319 Type 2 diabetes mellitus with unspecified diabetic retinopathy without macular edema; F12.10 Cannabis abuse, uncomplicated; D62 Acute posthemorrhagic anemia; E11.621 Type 2 diabetes mellitus with foot ulcer; E87.5 Hyperkalemia; E83.39 Other disorders of phosphorus metabolism; E11.65 Type 2 diabetes mellitus with hyperglycemia; E78.1 Pure hyperglyceridemia; F41.9 Anxiety disorder, unspecified; I13.2 Hypertensive heart and chronic kidney disease with heart failure and with stage 5 chronic kidney disease, or end stage renal disease; I50.33 Acute on chronic diastolic (congestive) heart failure; J18.9 Pneumonia, unspecified organism; J91.8 Pleural effusion in other conditions classified elsewhere; K59.00 Constipation, unspecified; K64.8 Other hemorrhoids; L03.116 Cellulitis of left lower limb; L97.529 Non-pressure chronic ulcer of other part of left foot with unspecified severity; M86.8X7 Other osteomyelitis, ankle and foot; N18.6 End stage renal disease; K22.10 Ulcer of esophagus without bleeding; K57.30 Diverticulosis of large intestine without perforation or abscess without bleeding; E87.8 Other disorders of electrolyte and fluid balance, not elsewhere classified; E87.20 Acidosis, unspecified; Z68.37 Body mass index [BMI] 37.0-37.9, adult; K29.71 Gastritis, unspecified, with bleeding; K22.89 Other specified disease of esophagus; T87.81 Dehiscence of amputation stump; R21 Rash and other nonspecific skin eruption; Z89.421 Acquired absence of other right toe(s); R74.8 Abnormal levels of other serum enzymes; Z90.5 Acquired absence of kidney; Z85.528 Personal history of other malignant neoplasm of kidney; Z90.49 Acquired absence of other specified parts of digestive tract; Z79.4 Long term (current) use of insulin; Z79.899 Other long term (current) drug therapy; Y83.5 Amputation of limb(s) as the cause of abnormal reaction of the patient, or of later complication, without mention of misadventure at the time of the procedure; Y92.230 Patient room in hospital as the place of occurrence of the external cause
CPT/HCPCS: 36415; 71046; 73630; 73718; 76770; 76937; 76999; 77001; 80048; 80053; 80061; 80069; 80074; 80307; 81001; 82150; 82570; 82728; 82945; 82947; 83036; 83540; 83550; 83605; 83615; 83735; 83880; 84100; 84145; 84156; 84157; 84300; 84443; 84484; 84703; 85014; 85018; 85025; 85046; 85610; 85730; 86580; 86706; 86850; 86900; 86901; 86923; 87015; 87040; 87045; 87046; 87077; 87205; 87811; 87899; 89051; 93005; 93225; 93306; 93970; 93971; 96365; 96366; 96367; 96368; 96372; 96375; 96376; 99285; A4217; A4649; C1752; C1894; J0360; J0696; J1100; J1200; J1642; J1643; J1815; J1940; J2060; J2175; J2250; J2270; J2405; J2470; J2543; J2704; J2765; J2795; J3010; J3371; J3475; J3490; J7050; P9016; P9047; Q0139; Q5105; A9270; J1644

== ENCOUNTER 2024-01-16 15:34 | Emergency (ER) | payer MEDICAID, SELFPAY ==
[2024-01-16 15:48] VITALS: BP 145/74; PULSE 92; RESP 13; TEMP 37.7; O2SAT 90; BMI 36.2
[2024-01-16 15:53] VITALS: PULSE 95
--- NOTE | 2024-01-16 16:00 | XR_ITS ---
Examination: AP chest single view TECHNIQUE: AP portable upright chest single view Exam date and time: January 16, 2024 1607 hours INDICATIONS: Onset SOB today. FINDINGS: Minimal prominence left ventricle Prominent vascular congestion Early edema versus pneumonia at the lung bases, clinical correlation advised Right internal jugular dialysis catheter tips SVC IMPRESSION: Findings most consistent with early heart failure, early pneumonia at the bases not excluded, clinical correlation advised
--- NOTE | 2024-01-16 16:02 | PD.EDADULT ---
ED General RME/HPI General Chief complaint: General Adult/Misc Complain Stated complaint: DIABETIC COMPLICATIONS Time Seen by Provider: 01/16/24 16:00 Arrival date/time: 01/16/24 15:34 RME / HPI RME / HPI narrative: 48-year-old female patient, legally blind, diabetes mellitus, hypertension, came in for evaluation regarding altered mental status. Patient was noted to having sudden onset of altered mental status, blood sugar was noted to be 27 when the EMS arrived. Patient was given D10 10 and blood sugar went up to 130. Patient orientation came back to baseline. Currently patient is alert oriented x 3 answers question appropriately. Patient told me that her last hemodialysis was Friday and today was not able to do one because of not feeling well. Patient was admitted here recently for walking pneumonia, discharge last Friday. Currently not on any antibiotic. 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 Family is doing the dressing. Related Data Home Medications ?Medication ?Instructions ?Recorded ?Confirmed gabapentin 600 mg tablet 1,200 mg PO TID 06/16/20 12/30/23 Previous Rx's ?Medication ?Instructions ?Recorded insulin syringe-needle U-100 1 mL #100 ea 02/22/20 28 gauge x 1/2 (BD Insulin Syringe) hydroxyzine HCl 25 mg tablet 25 mg PO HS PRN insom #30 tabs 06/06/23 blood pressure monitor (Blood #1 ea 06/28/23 Pressure Kit) flash glucose scanning reader #1 ea 01/13/24 (FreeStyle Zoey 2 [place]) flash glucose sensor (FreeStyle #1 ea 01/13/24 Zoey 2 Sensor kit) insulin glargine 100 unit/mL (3 10 unit (0.1 mL) subcut QPM #15 mL 01/13/24 mL) subcutaneous pen insulin glargine 100 unit/mL 10 unit (0.1 mL) subcut QPM #10 mL 01/13/24 subcutaneous solution levofloxacin 500 mg tablet 500 mg PO Q24H 5 days #5 tabs 01/16/24 Allergies Allergy/AdvReac Type Severity Reaction Status Date / Time No Known Allergies Allergy Verified 06/06/23 15:59 Review of Systems Review of Systems Narrative Review of Systems: Review of system reviewed and within normal limits except mentioned in HPI ED Exam Narrative Physical exam: VITAL SIGNS: Reviewed. GENERAL APPEARANCE: Alert and interactive, follows commands, no acute distress, HEAD AND FACE: Non-traumatic. ENT: PERRL, pink conjunctivitis, eyelid no trauma, Mucous membrane moist., Legally blind NECK: Supple, nontender, no nuchal rigidity. CHEST: No tenderness, no crepitus, no paradoxical movement, no retractions. LUNGS: Clear, well ventilated, symmetric, no rales, no wheezing, no ronchi, no stridor, good breath sounds bilaterally. HEART: Regular rate, regular rhythm, no murmur, no gallops. ABDOMEN: Soft, positive bowel sounds, nondistended, no guarding, nontender, no rebound, no masses, RECTAL: Deferred. GENITAL: Deferred. NEUROLOGICAL: Gross motor function intact sensory function intact, Appropriate for age. MUSCULOSKELETAL: low back nontender, full range of motion. EXTREMITIES: Open wound to the left great toe, with dressing, no drainage noted, nontender, full range of motion. SKIN: Color pink, dry, no rash, no lacerations, no abrasions, no contusions. LYMPHATICS: Deferred. Course Quality Measures none Orders Category Date Time Status XR chest 1V portable Stat Exams 01/16/24 16:00 Completed CBC [CBC] Stat Lab 01/16/24 16:32 Completed CMP [Comprehensive Metabolic Panel] Stat Lab 01/16/24 16:32 Completed UA, C/S IF [Urinalysis, C/S if Indicated] Stat Lab 01/16/24 16:01 Ordered Acetaminophen Tab [Tylenol ES Tab] Med 01/16/24 16:01 Discontinued 1,000 mg PO X1 ONE Ketorolac Inj [Toradol Inj] Med 01/16/24 16:29 Discontinued 30 mg IVP X1 ONE Levofloxacin [Levaquin] Med 01/16/24 16:53 Discontinued 500 mg PO X1 ONE Ondansetron Odt [Zofran Odt] Med 01/16/24 16:01 Discontinued 4 mg PO X1 ONE Vital Signs Vital signs: Vital Signs Temperature 99.8 F 01/16/24 15:48 Pulse Rate 92 01/16/24 15:48 Respiratory Rate 13 01/16/24 15:48 Blood Pressure 145/74 H 01/16/24 15:48 Pulse Oximetry (%) 90 L 01/16/24 15:48 Oxygen Delivery Method Room Air 01/16/24 15:48 MDM Patient data External records reviewed:: None Clinical information provided by:: none Social determinants that could affect healthcare access:: none Patient has the following chronic illnesses:: Diabetes mellitus, legally blind How is presenting disease/condition affected by chronic disease/condition?: exacerbated by Evaluation data The following diagnostics were reviewed and interpreted by me:: lab results and radiology exam(s) Lab and/or radiology exams considered but not ordered:: None Interpretation Summary: Patient's workup all came back with slight leukocytosis of 12.7, CMP showed creatinine of 3.5, normal potassium. Chest x-ray showed most consistent with early heart failure, early pneumonia at the bases not excluded, clinical correlation advised Medications Medications considered but not ordered:: None Medication administrations:: Medication Administration History Discontinued Medications Acetaminophen (Acetaminophen 500 Mg Tablet) 1,000 mg PO X1 ONE Stop: 01/16/24 16:02 Last Admin: 01/16/24 16:31 Dose: Not Given Documented By: MS Non-Admin Reason: Patient Refused Ketorolac Tromethamine (Ketorolac Inj 30 Mg/Ml Vial) 30 mg IVP X1 ONE Stop: 01/16/24 16:30 Last Admin: 01/16/24 16:40 Dose: 30 mg Documented By: MS Levofloxacin (Levofloxacin 250 Mg Tablet) 500 mg PO X1 ONE Stop: 01/16/24 16:54 Last Admin: 01/16/24 17:08 Dose: 500 mg Documented By: MS Ondansetron HCl (Ondansetron Odt 4 Mg Tabrap) 4 mg PO X1 ONE; Protocol Stop: 01/16/24 16:02 Last Admin: 01/16/24 16:40 Dose: 4 mg Documented By: MS Kent Toradol IV, and Levaquin Consultations Consultation(s) initiated? (list below): Yes Consultation #1 (Physician, Specialty, Details): I spoke with patient's computer systems hardware analyst, Dr. Moreland, regarding dialysis, told me that patient can go home and can have hemodialysis tomorrow as outpatient Diagnosis Differential Diagnosis ED Complaint MDM: Hypoglycemia, pneumonia, ESRD Most likely diagnosis given after review of the tests above:: Hypoglycemia, pneumonia, ESRD Admission Indicated Admission indicated?: not indicated Explain why admission is indicated or not indicated:: Stable for discharge Admission Request Was there a request for admission?: No Admission Attestation Admission request attestation: None Disposition Plan Disposition Plan: Discharge Discharge Attestation Discharge Attestation: The patient and all family members were given an opportunity to ask questions and understood the discharge instructions. Discharge instructions specifically effects, indications for sooner follow up or return to the emergency department, and the expected course of current diagnosis. Patient condition: Stable Medical Decision Making MDM Narrative MDM Narrative: 48-year-old female patient, legally blind, diabetes mellitus, hypertension, came in for evaluation regarding altered mental status. Patient was noted to having sudden onset of altered mental status, blood sugar was noted to be 27 when the EMS arrived. Patient was given D10 10 and blood sugar went up to 130. Patient orientation came back to baseline. Currently patient is alert oriented x 3 answers question appropriately. Patient told me that her last hemodialysis was Friday and today was not able to do one because of not feeling well. Patient was admitted here recently for walking pneumonia, discharge last Friday. Currently not on any antibiotic. 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 Family is doing the dressing. Patient's workup all came back with slight leukocytosis of 12.7, CMP showed creatinine of 3.5, normal potassium. Chest x-ray showed most consistent with early heart failure, early pneumonia at the bases not excluded, clinical correlation advised Patient was given Levaquin in the ED. Patient blood sugar was noted to be 158 prior to discharge. Patient was given sandwich and orange juice in the ED. Differential Diagnosis Differential Diagnosis: Hypoglycemia, pneumonia, ESRD Lab Data 01/16/24 16:32 01/16/24 16:32 Labs: Lab Results 01/16/24 Range/Units 16:32 WBC 12.7 H (3.6-11.0) Thou/mm3 RBC 3.45 L (4.00-5.20) Miln/mm3 Hgb 10.1 L (12.0-16.0) g/dL Hct 31.5 L (36.0-46.0) % MCV 91 (80-100) fL MCH 29.3 (25.0-35.0) pg MCHC 32.1 (31.0-37.0) g/dl RDW Std Deviation 49.6 H (36.4-46.3) fL Plt Count 291 (140-440) Thou/mm3 Neut % (Auto) 78 (37-80) % Lymph % (Auto) 7 L (10-50) % [place] % (Auto) 13 H (0-12) % Eos % (Auto) 0 (0-10) % Baso % (Auto) 0 (0-2.5) % Neut # (Auto) 10.0 H (1.8-7.7) Thou/mm3 Lymph # (Auto) 0.9 L (1.0-4.8) Thou/mm3 [place] # (Auto) 1.7 H (0.0-0.8) Thou/mm3 Eos # (Auto) 0.0 (0.0-0.5) Thou/mm3 Baso # (Auto) 0.0 (0.0-0.2) Thou/mm3 Immature Gran # (Auto) 0.11 H (0.00-0.00) Thou/mm3 Absolute Nucleated RBC 0.00 (0.00-0.00) Thou/mm3 Immature Gran % 1 H (0-0) % Nucleated RBC % 0 (0) /100 WBC Sodium 137 (136-145) mMol/L Potassium 4.2 (3.4-5.1) mMol/L Chloride 103 (98-107) mMol/L Carbon Dioxide 26.6 (20.0-31.0) mMol/L Anion Gap 7 (7-16) BUN 31 H (9-23) mg/dL Creatinine 3.5 H (0.6-1.3) mg/dL Estim Creat Clear Calc 21.6 L (>60) mL/min eGFR 15 L (60 - ) See Note BUN/Creatinine Ratio 9 L (12-20) Ratio Glucose 153 H (74-106) mg/dL Calculated Osmolality 283 (275-295) Calcium 8.7 (8.3-10.6) mg/dL Corrected Calcium 8.8 (8.5-10.1) mg/dL Total Bilirubin 0.4 (0.3-1.2) mg/dL AST 13 (0-34) U/L ALT 10 (10-49) U/L Alkaline Phosphatase 237 H (46-116) U/L Total Protein 7.3 (5.7-8.2) gm/dL Albumin 3.9 (3.5-5.0) gm/dL Globulin 3.4 (2.3-3.5) gm/dL Albumin/Globulin Ratio 1.1 L (1.2-2.2) Discharge Plan Plan Patient Disposition: HOME (Self Care) Disposition Comment: stable Prescriptions/Referrals Prescriptions/Med Rec: New levofloxacin 500 mg tablet 500 mg PO Q24H 5 Days Qty: 5 0RF No Action gabapentin 600 mg Tablet 1,200 mg PO TID (DME) insulin syringe-needle U-100 [BD Insulin Syringe] 1 mL 28 gauge x 1/2 syringe See Rx Instructions .ROUTE .MEDSUPPLY Qty: 100 0RF Rx Instructions: As directed (DME) FreeStyle Zoey 2 [place] Misc See Rx Instructions .Route Qty: 1 2RF Rx Instructions: As directed; once daily insulin glargine 100 unit/mL solution 10 unit subcut QPM Qty: 10 4RF insulin glargine 100 unit/mL (3 mL) insulin pen 10 unit subcut QPM Qty: 15 4RF (DME) FreeStyle Zoey 2 Sensor Kit See Rx Instructions .Route Qty: 1 3RF Rx Instructions: As directed once daily hydroxyzine HCl 25 mg tablet 25 mg PO HS PRN (Reason: insom) Qty: 30 0RF (DME) blood pressure monitor [Blood Pressure Kit] Kit See Rx Instructions .Route Qty: 1 0RF Rx Instructions: As directed Referrals: No Primary/Family,Physician [Primary Care Provider] - In 1 week Problem List Clinical Impression: Hypoglycemia, PNA (pneumonia), ESRD on dialysis Patient/Caregiver Discharge Instructions Discharge Activity: activity as tolerated Education Materials: ED Diet for Chronic Kidney Disease Additional Instructions: Thank you for the opportunity for serving you today. You are stable for discharged . You are advised to: Follow-up with your PCP in 1 to 2 days Return to ED for worsening of symptoms Increase oral fluids Take medication as prescribed Do not give insulin today resume your insulin tomorrow Call your dialysis center tomorrow morning Dr. Moreland your computer systems hardware analyst told me that you can have dialysis tomorrow. Print Language: Vietnamese Stand Alone Forms: Monik Award Info., Patient Portal Info Letter PA/ZIPPER IRONER Supervising Physician EDISON/ZIPPER IRONER Supervising Physician: MD Reji
--- NOTE | 2024-01-16 16:05 | PC.NURSE ---
BIBA for AMS, pt was found to be diaphoretic and GCS 12 with a glucose of 27 on scene, EMS gave oral glucose and 250ml of D10 placed a 22g PIV in left hand, repeat glucose was 137. EMS reports that pt had 12 units of insulin. Pt currently GCS 15, A&O x4, FSBG 105. Provider at [facility]. JUANITA to feed pt. Provided with sandwich and OJ.
--- NOTE | 2024-01-16 16:32 | PC.NURSE ---
David (son of pt) called. Provided with an update after patient stated it was ok.
[2024-01-16] MEDS: KETOROLAC INJ 30 MG/ML VIAL IVP (16:40)
[2024-01-16] MEDS: ONDANSETRON ODT 4 MG TABRAP PO (16:40)
[2024-01-16 16:49] LABS: Basophils % (Auto) 0 % (0-2.5); Eosinophils % (Auto) 0 % (0-10); Hematocrit 31.5 % (36.0-46.0); Hemoglobin 10.1 g/dL (12.0-16.0); Immature Granulocytes % (Auto) 1 % (0-0); Immature Granulocytes Auto 0.11 Thou/mm3 (0.00-0.00); Lymphocytes # (Auto) 0.9 Thou/mm3 (1.0-4.8); Lymphocytes % (Auto) 7 % (10-50); Mean Corpuscular HGB Conc 32.1 g/dl (31.0-37.0); Mean Corpuscular Hemoglobin 29.3 pg (25.0-35.0); Mean Corpuscular Volume 91 fL (80-100); Monocytes # (Auto) 1.7 Thou/mm3 (0.0-0.8); Monocytes % (Auto) 13 % (0-12); Neutrophils % (Auto) 78 % (37-80); Nucleated Red Blood Cell % 0 /100 WBC (0); Platelet Count 291 Thou/mm3 (140-440); RDW Standard Deviation 49.6 fL (36.4-46.3); Red Blood Count 3.45 Miln/mm3 (4.00-5.20); White Blood Count 12.7 Thou/mm3 (3.6-11.0)
[2024-01-16 16:53] VITALS: BP 141/79; PULSE 81; RESP 16; TEMP 37.2; O2SAT 94
[2024-01-16 17:06] LABS: Alanine Aminotransferase 10 U/L (10-49); Albumin, Serum 3.9 gm/dL (3.5-5.0); Albumin/Globulin Ratio 1.1 (1.2-2.2); Alkaline Phosphatase 237 U/L (46-116); Anion Gap 7 (7-16); Aspartate Amino Transferase 13 U/L (0-34); BUN/Creatinine Ratio 9 Ratio (12-20); Bilirubin,Total 0.4 mg/dL (0.3-1.2); Blood Urea Nitrogen 31 mg/dL (9-23); Calcium 8.7 mg/dL (8.3-10.6); Calcium (Corrected) 8.8 mg/dL (8.5-10.1); Carbon Dioxide 26.6 mMol/L (20.0-31.0); Chloride 103 mMol/L (98-107); Creatinine (Component) 3.5 mg/dL (0.6-1.3); Estimated Creatinine Clearance 21.6 mL/min (>60); Globulin 3.4 gm/dL (2.3-3.5); Glucose 153 mg/dL (74-106); Osmolality,Calculated 283 (275-295); Potassium 4.2 mMol/L (3.4-5.1); Sodium 137 mMol/L (136-145); Total Protein 7.3 gm/dL (5.7-8.2); eGFR 15 See Note
[2024-01-16] MEDS: LEVOFLOXACIN 250 MG TABLET 500 MG PO (17:08)
--- NOTE | 2024-01-16 18:32 | PC.NURSE ---
FSBG 256 at DC
[2024-01-16 18:35] VITALS: BP 145/80; PULSE 93; RESP 20; TEMP 37.3; O2SAT 96
== END 2024-01-16 18:37 | disposition home or self-care (01) ==
PROVIDERS: Nurse Practitioner Family; Emergency Provider Emergency Medicine
DX: E11.649 Type 2 diabetes mellitus with hypoglycemia without coma (principal); J18.9 Pneumonia, unspecified organism; I12.0 Hypertensive chronic kidney disease with stage 5 chronic kidney disease or end stage renal disease; E11.22 Type 2 diabetes mellitus with diabetic chronic kidney disease; N18.6 End stage renal disease; Z99.2 Dependence on renal dialysis; Z79.4 Long term (current) use of insulin
CPT/HCPCS: 36415; 71045; 80053; 81001; 85025; 99284; J1885; Q0162; A9270

== ENCOUNTER 2024-01-26 17:29 | Emergency (ER) | payer MEDICAID, SELFPAY ==
[2024-01-26 18:09] VITALS: BP 163/91; PULSE 79; RESP 18; TEMP 36.4; O2SAT 99; BMI 34.9
--- NOTE | 2024-01-26 18:21 | XR_ITS ---
Sitting upright PA lateral chest 2 views Technique: Sitting upright PA lateral chest 2 views Exam date and time: January 26, 2024 1850 hrs. Comparison January 16, 2024 Indications: Chest pain today. Findings: No significant cardiac enlargement Mild vascular congestion No pneumonia or pulmonary edema Right internal jugular dialysis catheter tips SVC satisfactory position Impression: No pneumonia or pulmonary edema
--- NOTE | 2024-01-26 18:21 | EKG_ITS ---
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
--- NOTE | 2024-01-26 18:21 | PD.EDRME ---
Rapid Medical Screening Exam RME Arrival date/time: 01/26/24 17:29 48-year-old female past medical history of ESRD with hemodialysis MWF and diabetes presents emergency department complaining of generalized weakness, dizziness, and chills after missing scheduled dialysis today due to transportation issues. Chief Complaint: Weakness Time Seen by Provider: 01/26/24 17:58 Vital signs: Vital Signs Temperature 97.5 F 01/26/24 18:09 Pulse Rate 79 01/26/24 18:09 Respiratory Rate 18 01/26/24 18:09 Blood Pressure 163/91 H 01/26/24 18:09 Pulse Oximetry (%) 99 01/26/24 18:09 Oxygen Delivery Method Room Air 01/26/24 18:09 Vital signs reviewed by provider: Yes
[2024-01-26 19:29] LABS: Basophils # (Auto) 0.1 Thou/mm3 (0.0-0.2); Basophils % (Auto) 1 % (0-2.5); Eosinophils % (Auto) 0 % (0-10); Hematocrit 36.7 % (36.0-46.0); Hemoglobin 11.4 g/dL (12.0-16.0); Immature Granulocytes % (Auto) 2 % (0-0); Immature Granulocytes Auto 0.22 Thou/mm3 (0.00-0.00); Lymphocytes # (Auto) 0.7 Thou/mm3 (1.0-4.8); Lymphocytes % (Auto) 5 % (10-50); Mean Corpuscular HGB Conc 31.1 g/dl (31.0-37.0); Mean Corpuscular Hemoglobin 28.1 pg (25.0-35.0); Mean Corpuscular Volume 91 fL (80-100); Monocytes # (Auto) 0.5 Thou/mm3 (0.0-0.8); Monocytes % (Auto) 4 % (0-12); Neutrophils # (Auto) 10.9 Thou/mm3 (1.8-7.7); Neutrophils % (Auto) 88 % (37-80); Nucleated Red Blood Cell % 0 /100 WBC (0); Platelet Count 396 Thou/mm3 (140-440); RDW Standard Deviation 49.4 fL (36.4-46.3); Red Blood Count 4.05 Miln/mm3 (4.00-5.20); White Blood Count 12.5 Thou/mm3 (3.6-11.0)
[2024-01-26 19:33] LABS: Alanine Aminotransferase 11 U/L (10-49); Albumin, Serum 3.3 gm/dL (3.5-5.0); Alkaline Phosphatase 182 U/L (46-116); Anion Gap 11 (7-16); Aspartate Amino Transferase 14 U/L (0-34); BUN/Creatinine Ratio 8 Ratio (12-20); Bilirubin,Total 0.2 mg/dL (0.3-1.2); Blood Urea Nitrogen 32 mg/dL (9-23); Calcium 8.1 mg/dL (8.3-10.6); Calcium (Corrected) 8.7 mg/dL (8.5-10.1); Carbon Dioxide 25.9 mMol/L (20.0-31.0); Chloride 104 mMol/L (98-107); Estimated Creatinine Clearance 19.2 mL/min (>60); Globulin 3.3 gm/dL (2.3-3.5); Glucose 165 mg/dL (74-106); Magnesium 1.8 mg/dL (1.6-2.6); Osmolality,Calculated 292 (275-295); Potassium 3.7 mMol/L (3.4-5.1); Sodium 141 mMol/L (136-145); Total Protein 6.6 gm/dL (5.7-8.2); Troponin I 0.022 ng/mL (0.0-0.045); eGFR 13 See Note
[2024-01-26 19:49] LABS: B-Type Natriuretic Peptide 322 pg/mL (0-100)
[2024-01-26 19:52] LABS: Prothrombin Time 10.8 Seconds (9.0-12.2)
[2024-01-26 21:49] LABS: Collection Type, Urine Clean Catch
[2024-01-26 21:58] LABS: Bilirubin,Urine Negative (Negative); Blood,Urine 1+ (Negative); Clarity,Urine Clear (Clear/Hazy); Color,Urine Lt-Yellow (Lt Yel-Yel); Glucose, Urine 4+ (Negative); Hyaline Casts,Urine < 1 /hpf (0-1); Ketones,Urine 1+ (Negative); Leukocyte Esterase,Urine Negative (Negative); Nitrite,Urine Negative (Negative); Protein,Urine 4+ (Neg - Trace); RBC,Urine 8 /hpf (0-3); Specific Gravity,Urine 1.035 (1.001-1.035); Squamous Epithelial Cell,Urine 7 /hpf (0-5); Urobilinogen,Urine Negative mg/dL (0.0-1.0); WBC,Urine 17 /hpf (0-5)
[2024-01-26 22:03] LABS: Amphetamine/Methamp Scrn,U Positive (Negative); Barbiturate Screen,Urine Negative (Negative); Benzodiazepines Screen,Urine Negative (Negative); Benzoylecgonine Screen, Ur Negative (Negative); Fentanyl Screen,Urine Negative (Negative); Opiate Screen,Urine Negative (Negative); THC Screen,Urine Positive (Negative)
--- NOTE | 2024-01-26 22:36 | EDNOTE_ITS ---
<Statement entered by Miley Bourgeois MD - 02/02/24 17:50> As co-signing physician, I was present and available for consult prn. I concur with the plan and care as documented by the midlevel provider. ED General RME/HPI General Chief complaint: Weakness Stated complaint: LETHARGIC, DIZZY, WEAK; MISSED DIALYSIS AT 1545 Time Seen by Provider: 01/26/24 17:58 Arrival date/time: 01/26/24 17:29 CC: Missed dialysis HPI the patient presents the ER with a caregiver as she is blind, states the patient missed dialysis due to transportation problems . Patient denies shortness of breath or difficulty breathing is awake alert and oriented speaking in clear sentences. RME / HPI RME / HPI narrative: 01/26/24 17:29 48-year-old female past medical history of ESRD with hemodialysis MWF and diabetes presents emergency department complaining of generalized weakness, dizziness, and chills after missing scheduled dialysis today due to transportation issues. Related Data Home Medications ?Medication ?Instructions ?Recorded ?Confirmed gabapentin 600 mg tablet 1,200 mg PO TID 06/16/20 12/30/23 Previous Rx's ?Medication ?Instructions ?Recorded insulin syringe-needle U-100 1 mL #100 ea 02/22/20 28 gauge x 1/2 (BD Insulin Syringe) hydroxyzine HCl 25 mg tablet 25 mg PO HS PRN insom #30 tabs 06/06/23 blood pressure monitor (Blood #1 ea 06/28/23 Pressure Kit) flash glucose scanning reader #1 ea 01/13/24 (FreeStyle Zoey 2 [place]) flash glucose sensor (FreeStyle #1 ea 01/13/24 Zoey 2 Sensor kit) insulin glargine 100 unit/mL (3 10 unit (0.1 mL) subcut QPM #15 mL 01/13/24 mL) subcutaneous pen insulin glargine 100 unit/mL 10 unit (0.1 mL) subcut QPM #10 mL 01/13/24 subcutaneous solution ibuprofen 800 mg tablet 800 mg PO TID PRN pain #30 tabs 01/16/24 Allergies Allergy/AdvReac Type Severity Reaction Status Date / Time No Known Allergies Allergy Verified 01/26/24 17:30 Review of Systems Review of Systems Narrative Review of Systems: GEN: No fever, no chills, no weight loss EYES: No discharge, no visual changes, no pain HEENT: No ear pain, no congestion, no sore throat PULM: No shortness of breath, no cough, no congestion CV: No chest pain, no dyspnea on exertion, no palpitations GI: No nausea, no vomiting, no diarrhea, no pain, no constipation : No frequency, no urgency, no dysuria MUSC/SKEL: No joint pain, no back pain SKIN: No rash PSYCH: No hallucinations, no depression HEME/LYMPH: No easy bleeding or bruising tendencies NEURO: No weakness, no headache Past Medical History Past Medical History NEUROLOGIC: Negative Neurological Disorders or Seizures CARDIAC: Positive Hypertension; Negative Cardiac Disorders or Congestive Heart Failure RESPIRATORY: Positive Asthma; Negative Chronic Obstructive Pulmonary Disease (COPD) GASTROINTESTINAL: Positive Obesity; Negative Gastrointestinal Disorders GENITOURINARY: Positive Renal Disease REPRODUCTIVE: Positive Previous Pregnancies MUSCULOSKELETAL: Positive Arthritis and Osteomyelitis ENDOCRINE: Positive Endocrine Disorders and Diabetes Mellitus Type 2; Negative Diabetes Mellitus Type 1 HEMATOLOGIC: Negative Sickle Cell Disease PSYCHO/SOCIAL: Positive Bipolar Disorder, Depression and Anxiety OTHER HISTORY: Positive Hospitalization, Falls, Blood Transfusions and Chicken Pox; Negative Autoimmune Disease, Down Syndrome, Developmental Delay, Shingles, Blood Transfusion Reaction, Anesthesia Reactions or Organ Transplant Family History FAMILY HISTORY: Positive Family Cancer; Negative Family Respiratory Disorders, Family Cardiac Disorders, Family Gastrointestinal Problems, Family Surgery or Family Anesthesia Reaction Surgical History SURGICAL: Positive Abdominal Surgery, Amputation and Section; Negative Cardiac Surgery, Nephrectomy or Organ Transplant Social History SMOKING STATUS: Never smoker SECOND HAND EXPOSURE: No ED Exam Narrative Physical exam: [General: Obese not in any acute distress Head normocephalic HEENT: Within acceptable limits Neck is supple nontender Chest equal chest rise nontender to palpation Respiratory: Clear to auscultation, diminished in the bases CV: Rate rhythm is regular no murmurs rubs or clicks Abdomen is distended secondary to body habitus soft nontender no masses positive bowel sounds all 4 quadrants Back: No CVA tenderness no spinous process tenderness from cervical spine thoracic and lumbar spine Skin: Intact no petechiae rash induration ulceration or crepitus Extremities: Moving all extremity against resistance cap refill less than 2 seconds neurosensory intact Neuro: Awake alert oriented x3 Glascow coma 15 no focal deficits] Course Quality Measures none Orders Category Date Time Status EKG (ED ONLY) *Do not use* NOW Care 01/26/24 18:21 Completed EKG (ED Only) Stat Exams 01/26/24 18:21 Draft XR chest 2V Stat Exams 01/26/24 18:21 Completed B-Type Natriuretic Peptide Stat Lab 01/26/24 19:17 Completed CBC Stat Lab 01/26/24 19:17 Completed Comprehensive Metabolic Panel Stat Lab 01/26/24 18:48 Completed Drug Screen,Urine Stat Lab 01/26/24 21:42 Completed Magnesium Stat Lab 01/26/24 18:48 Completed Partial Thromboplastin Time Stat Lab 01/26/24 18:48 Completed Prothrombin Time with INR Stat Lab 01/26/24 18:48 Completed Troponin I Stat Lab 01/26/24 18:48 Completed Urinalysis Stat Lab 01/26/24 21:42 Completed Vital Signs Vital signs: Vital Signs Temperature 97.5 F 01/26/24 18:09 Pulse Rate 79 01/26/24 18:09 Respiratory Rate 18 01/26/24 18:09 Blood Pressure 163/91 H 01/26/24 18:09 Pulse Oximetry (%) 99 01/26/24 18:09 Oxygen Delivery Method Room Air 01/26/24 18:09 [facility] Patient data External records reviewed:: [facility] previous records 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 Coags within acceptable limits PTT of 20.0 CMP shows sodium 141 potassium 3.7 chloride of 104 CO2 of 25.9 BUN of 32 creatinine of 4 and glucose of 165 BNP of 322, urine is contaminated catch but no indication for UTI UDS is positive for methamphetamines. Interpretation Summary: Patient is not in any acute distress and her labs are not significantly bad enough to require emergent dialysis. Patient is advised to call Dr. Moreland's office tomorrow for dialysis session before her next session on Friday. Patient is advised if there was not able to get any dialysis to get her labs rechecked on Friday. Medications Medications considered but not ordered:: None Medication administrations:: None Consultations Consultation(s) initiated? (list below): No Diagnosis Differential Diagnosis ED Complaint MDM: Electrolyte imbalance polysubstance abuse missed dialysis Most likely diagnosis given after review of the tests above:: ESRD methamphetamine abuse Admission Indicated Admission indicated?: not indicated Explain why admission is indicated or not indicated:: Stable for outpatient follow-up Admission Request Was there a request for admission?: No Disposition Plan Disposition Plan: Discharge Discharge Attestation Discharge Attestation: The patient and all family members were given an opportunity to ask questions and understood the discharge instructions. Discharge instructions specifically effects, indications for sooner follow up or return to the emergency department, and the expected course of current diagnosis. Patient condition: Stable Medical Decision Making Differential Diagnosis Differential Diagnosis: Electrolyte imbalance polysubstance abuse missed dialysis Lab Data 01/26/24 19:17 01/26/24 18:48 Labs: Lab Results 01/26/24 01/26/24 01/26/24 Range/Units 18:48 19:17 21:42 WBC 12.5 H (3.6-11.0) Thou/mm3 RBC 4.05 (4.00-5.20) Miln/mm3 Hgb 11.4 L (12.0-16.0) g/dL Hct 36.7 (36.0-46.0) % MCV 91 (80-100) fL MCH 28.1 (25.0-35.0) pg MCHC 31.1 (31.0-37.0) g/dl RDW Std Deviation 49.4 H (36.4-46.3) fL Plt Count 396 D (140-440) Thou/mm3 Neut % (Auto) 88 H (37-80) % Lymph % (Auto) 5 L (10-50) % [place] % (Auto) 4 (0-12) % Eos % (Auto) 0 (0-10) % Baso % (Auto) 1 (0-2.5) % Neut # (Auto) 10.9 H (1.8-7.7) Thou/mm3 Lymph # (Auto) 0.7 L (1.0-4.8) Thou/mm3 [place] # (Auto) 0.5 (0.0-0.8) Thou/mm3 Eos # (Auto) 0.0 (0.0-0.5) Thou/mm3 Baso # (Auto) 0.1 (0.0-0.2) Thou/mm3 Immature Gran # (Auto) 0.22 H (0.00-0.00) Thou/mm3 Absolute Nucleated RBC 0.00 (0.00-0.00) Thou/mm3 Immature Gran % 2 H (0-0) % Nucleated RBC % 0 (0) /100 WBC PT 10.8 (9.0-12.2) Seconds INR 1.0 (0.9-1.3) APTT 20.0 L D (22.0-36.0) Seconds Sodium 141 (136-145) mMol/L Potassium 3.7 (3.4-5.1) mMol/L Chloride 104 (98-107) mMol/L Carbon Dioxide 25.9 (20.0-31.0) mMol/L Anion Gap 11 (7-16) BUN 32 H (9-23) mg/dL Creatinine 4.0 H (0.6-1.3) mg/dL Estim Creat Clear Calc 19.2 L (>60) mL/min eGFR 13 L* (60 - ) See Note BUN/Creatinine Ratio 8 L (12-20) Ratio Glucose 165 H (74-106) mg/dL Calculated Osmolality 292 (275-295) Calcium 8.1 L (8.3-10.6) mg/dL Corrected Calcium 8.7 (8.5-10.1) mg/dL Magnesium 1.8 (1.6-2.6) mg/dL Total Bilirubin 0.2 L (0.3-1.2) mg/dL AST 14 (0-34) U/L ALT 11 (10-49) U/L Alkaline Phosphatase 182 H (46-116) U/L Troponin I 0.022 (0.0-0.045) ng/mL B-Natriuretic Peptide 322 H (0-100) pg/mL Total Protein 6.6 (5.7-8.2) gm/dL Albumin 3.3 L (3.5-5.0) gm/dL Globulin 3.3 (2.3-3.5) gm/dL Albumin/Globulin Ratio 1.0 L (1.2-2.2) Ur Collection Type Clean Catch Urine Color Lt-Yellow (Lt Yel-Yel) Urine Clarity Clear (Clear/Hazy) Urine pH 7.0 (5.0-7.0) Ur Specific [place] 1.035 (1.001-1.035) Urine Protein 4+ A (Neg - Trace) Urine Glucose (UA) 4+ A (Negative) Urine Ketones 1+ A (Negative) Urine Blood 1+ A (Negative) Urine Nitrite Negative (Negative) Urine Bilirubin Negative (Negative) Urine Urobilinogen (Auto) Negative (0.0-1.0) mg/dL Ur Leukocyte Esterase Negative (Negative) Urine RBC 8 H (0-3) /hpf Urine WBC 17 H (0-5) /hpf Ur Squamous Epith Cells 7 H (0-5) /hpf Urine Bacteria None (None) Hyaline Casts < 1 (0-1) /hpf Urine Opiates Screen Negative (Negative) Urine Fentanyl Screen Negative (Negative) Ur Barbiturates Screen Negative (Negative) U Amphetamin/Meth Scrn Positive A (Negative) U Benzodiazepines Scrn Negative (Negative) U Cocaine Metab Screen Negative (Negative) U Marijuana (THC) Screen Positive A (Negative) Discharge Plan Plan Patient Disposition: HOME (Self Care) Patient condition on transfer: Stable Prescriptions/Referrals Prescriptions/Med Rec: No Action gabapentin 600 mg Tablet 1,200 mg PO TID (DME) insulin syringe-needle U-100 [BD Insulin Syringe] 1 mL 28 gauge x 1/2 syringe See Rx Instructions .ROUTE .MEDSUPPLY Qty: 100 0RF Rx Instructions: As directed (DME) FreeStyle Zoey 2 [place] Misc See Rx Instructions .Route Qty: 1 2RF Rx Instructions: As directed; once daily insulin glargine 100 unit/mL solution 10 unit subcut QPM Qty: 10 4RF insulin glargine 100 unit/mL (3 mL) insulin pen 10 unit subcut QPM Qty: 15 4RF (DME) FreeStyle Zoey 2 Sensor Kit See Rx Instructions .Route Qty: 1 3RF Rx Instructions: As directed once daily hydroxyzine HCl 25 mg tablet 25 mg PO HS PRN (Reason: insom) Qty: 30 0RF (DME) blood pressure monitor [Blood Pressure Kit] Kit See Rx Instructions .Route Qty: 1 0RF Rx Instructions: As directed ibuprofen 800 mg tablet 800 mg PO TID PRN (Reason: pain) Qty: 30 0RF Referrals: No Primary/Family,Physician [Primary Care Provider] - In 1 week Dominick Moreland MD [Physician] - In 1 week Problem List Clinical Impression: End-stage renal disease (ESRD), Methamphetamine abuse Patient/Caregiver Discharge Instructions Education Materials: Understanding Methamphetamine ..., ED Chronic Kidney Disease (CKD) Additional Instructions: Call Dr. Moreland's office in the morning to schedule dialysis, if there is a worsening of symptoms including shortness of breath return to the emergency room for reevaluation. Stop using methamphetamines Do not get dialysis in the next 2 days return the emergency room for reevaluation to determine if you need emergent dialysis. Print Language: Niuean Stand Alone Forms: Monik Award Info., Patient Portal Info Letter EDISON/BECCA Supervising Physician EDISON/BECCA Supervising Physician: Salas Brock ENP
[2024-01-26 22:54] VITALS: RESP 18
== END 2024-01-26 22:54 | disposition home or self-care (01) ==
PROVIDERS: Emergency Provider Emergency Medicine
DX: I12.0 Hypertensive chronic kidney disease with stage 5 chronic kidney disease or end stage renal disease (principal); N18.6 End stage renal disease; F15.10 Other stimulant abuse, uncomplicated; R07.9 Chest pain, unspecified; R94.31 Abnormal electrocardiogram [ECG] [EKG]; Z99.2 Dependence on renal dialysis
CPT/HCPCS: 36415; 71046; 80053; 80307; 81001; 83735; 83880; 84484; 85025; 85610; 85730; 93005; 99283

== ENCOUNTER 2024-03-04 16:33 | Emergency (ER) | payer MEDICAID, SELFPAY ==
--- NOTE | 2024-03-04 17:18 | PC.NURSE ---
FREDI from [facility], Pt had a left 1st toe amputation in November, never had the sutures removed. On Feb 28, suture came undone, part wound opened, and puss drained out according to pt. Pt went for a routine appointment today and sent her here to have the foot assessed. Foot is extremely painful, warm to touch, and red through second toe
--- NOTE | 2024-03-04 17:52 | PD.EDWOUND ---
ED Wound/Laceration-RME/HPI General Chief Complaint: Wound/Laceration Stated Complaint: OPEN WOUND LEFT TOE Time Seen by Provider: 03/04/24 17:42 Arrival date/time: 03/04/24 16:33 RME / HPI RME / HPI narrative: 48-year-old female patient came in for evaluation regarding wound check left foot status post left great toe disarticulation. This been done since November last year, patient noticed nonhealing open wound on the incision site, severity mild. Denies any redness. Denies any fever. Patient never follow-up with PCP or surgeon who did the surgery. Patient also complained of pain chest dull ache severity mild. Patient is ambulatory. Related Data Home Medications ?Medication ?Instructions ?Recorded ?Confirmed gabapentin 600 mg tablet 1,200 mg PO TID 06/16/20 12/30/23 Previous Rx's ?Medication ?Instructions ?Recorded insulin syringe-needle U-100 1 mL #100 ea 02/22/20 28 gauge x 1/2 (BD Insulin Syringe) hydroxyzine HCl 25 mg tablet 25 mg PO HS PRN insom #30 tabs 06/06/23 blood pressure monitor (Blood #1 ea 06/28/23 Pressure Kit) flash glucose scanning reader #1 ea 01/13/24 (FreeStyle Zoey 2 [place]) flash glucose sensor (FreeStyle #1 ea 01/13/24 Zoey 2 Sensor kit) insulin glargine 100 unit/mL (3 10 unit (0.1 mL) subcut QPM #15 mL 01/13/24 mL) subcutaneous pen insulin glargine 100 unit/mL 10 unit (0.1 mL) subcut QPM #10 mL 01/13/24 subcutaneous solution ibuprofen 800 mg tablet 800 mg PO TID PRN pain #30 tabs 01/16/24 ibuprofen 800 mg tablet 800 mg PO TID PRN pain #20 tabs 03/04/24 sulfamethoxazole 800 1 tab PO BID 14 days #28 tabs 03/04/24 mg-trimethoprim 160 mg tablet (Bactrim DS) Allergies Allergy/AdvReac Type Severity Reaction Status Date / Time No Known Allergies Allergy Verified 01/26/24 17:30 Review of Systems Review of Systems Narrative Review of Systems: Review of system reviewed and within normal limits except mentioned in HPI ED Exam Narrative Physical exam: VITAL SIGNS: Reviewed. GENERAL APPEARANCE: Alert and interactive, follows commands, no acute distress, HEAD AND FACE: Non-traumatic. ENT: PERRL, pink conjunctivitis, eyelid no trauma, Mucous membrane moist. NECK: Supple, nontender, no nuchal rigidity. CHEST: No tenderness, no crepitus, no paradoxical movement, no retractions. LUNGS: Clear, well ventilated, symmetric, no rales, no wheezing, no ronchi, no stridor, good breath sounds bilaterally. HEART: Regular rate, regular rhythm, no murmur, no gallops. ABDOMEN: Soft, positive bowel sounds, nondistended, no guarding, nontender, no rebound, no masses, RECTAL: Deferred. GENITAL: Deferred. NEUROLOGICAL: Gross motor function intact sensory function intact, Appropriate for age. MUSCULOSKELETAL: low back nontender, full range of motion. EXTREMITIES: Status post left great toe disarticulation, 1 cm opening wound, with good granulation tissue, no drainage noted, mild redness of the surrounding nonfluctuant, mild tenderness, full range of motion. SKIN: Color pink, dry, no rash, no lacerations, no abrasions, no contusions. LYMPHATICS: Deferred. Course Quality Measures none Orders Category Date Time Status Ketorolac Inj [Toradol Inj] Med 03/04/24 17:49 Discontinued 30 mg IM X1 ONE Trimethoprim/Sulfa 160/800 Ds [Bactrim Ds] Med 03/04/24 17:49 Discontinued 1 tab PO X1 ONE Wound / Laceration MDM Narrative MDM Narrative:: 48-year-old female patient came in for evaluation regarding wound check left foot status post left great toe disarticulation. This been done since November last year, patient noticed nonhealing open wound on the incision site, severity mild. Denies any redness. Denies any fever. Patient never follow-up with PCP or surgeon who did the surgery. Patient also complained of pain chest dull ache severity mild. Patient is ambulatory. Patient had wound dehiscence which is healing, with mild redness, I did not notice any drainage. Not foul-smelling. Patient received Bactrim and Toradol IM in the emergency room. Imaging or laboratory workup is not needed at this time. Patient vital signs unremarkable. Patient is afebrile. Patient had surgery at least 3 months ago. Patient data External records reviewed:: None Clinical information provided by:: patient Social determinants that could affect healthcare access:: none Patient has the following chronic illnesses:: Diabetes mellitus How is presenting disease/condition affected by chronic disease/condition?: exacerbated by Evaluation data The following diagnostics were reviewed and interpreted by me:: other (specify) (None) Lab and/or radiology exams considered but not ordered:: None Interpretation Summary: None Medications / Prescriptions Medications or Prescriptions considered but not ordered:: None Medication administrations:: Medication Administration History Discontinued Medications Ketorolac Tromethamine (Ketorolac Inj 60 Mg/2 Ml Vial) 30 mg IM X1 ONE Stop: 03/04/24 17:50 Trimethoprim/Sulfamethoxazole (Trimethoprim/Sulfa 160/800 Ds Tablet) 1 tab PO X1 ONE Stop: 03/04/24 17:50 Toradol and Bactrim Consultations Consultation(s) initiated? (list below): No Diagnosis Wound Differential Diagnosis: other (Wound check, infected wound, status postleft great toe disarticulation left) Most likely diagnosis given after review of the tests above:: Wound check, status post left great toe disarticulation Admission Indicated Admission indicated?: not indicated Explain why admission is indicated or not indicated:: Stable for discharge Admission Request Was there a request for admission?: No Disposition Plan Disposition Plan: Discharge Discharge Attestation Discharge Attestation: The patient was given an opportunity to ask questions and understood the discharge instructions. Discharge instructions specifically effects, indications for sooner follow up or return to the emergency department, and the expected course of current diagnosis. Patient condition: Stable Discharge Plan Plan Patient Disposition: HOME (Self Care) Disposition Comment: stable Prescriptions/Referrals Prescriptions/Med Rec: New sulfamethoxazole-trimethoprim [Bactrim DS] 800-160 mg tablet 1 tab PO BID 14 Days Qty: 28 0RF ibuprofen 800 mg tablet 800 mg PO TID PRN (Reason: pain) Qty: 20 0RF No Action gabapentin 600 mg Tablet 1,200 mg PO TID (DME) insulin syringe-needle U-100 [BD Insulin Syringe] 1 mL 28 gauge x 1/2 syringe See Rx Instructions .ROUTE .MEDSUPPLY Qty: 100 0RF Rx Instructions: As directed (DME) FreeStyle Zoey 2 [place] Misc See Rx Instructions .Route Qty: 1 2RF Rx Instructions: As directed; once daily insulin glargine 100 unit/mL solution 10 unit subcut QPM Qty: 10 4RF insulin glargine 100 unit/mL (3 mL) insulin pen 10 unit subcut QPM Qty: 15 4RF (DME) FreeStyle Zoey 2 Sensor Kit See Rx Instructions .Route Qty: 1 3RF Rx Instructions: As directed once daily hydroxyzine HCl 25 mg tablet 25 mg PO HS PRN (Reason: insom) Qty: 30 0RF (DME) blood pressure monitor [Blood Pressure Kit] Kit See Rx Instructions .Route Qty: 1 0RF Rx Instructions: As directed ibuprofen 800 mg tablet 800 mg PO TID PRN (Reason: pain) Qty: 30 0RF Problem List Clinical Impression: Visit for wound check Patient/Caregiver Discharge Instructions Discharge Activity: activity as tolerated Education Materials: ED Wound Care Additional Instructions: Thank you for the opportunity for serving you today. You are stable for discharged . You are advised to: Follow-up with your PCP in 1 to 2 days Follow-up with your surgeon next week. Return to ED for worsening of symptoms Increase oral fluids Take medication as prescribed Daily dressing with bacitracin as needed Print Language: German Stand Alone Forms: Monik Award Info., Patient Portal Info Letter PA/SHAKE BACKBOARD NOTCHER Supervising Physician PA/SHAKE BACKBOARD NOTCHER Supervising Physician: MD Purvi
[2024-03-04] MEDS: TRIMETHOPRIM/SULFA 160/800 DS TABLET 1 TAB PO (18:15)
[2024-03-04] MEDS: KETOROLAC INJ 60 MG/2 ML VIAL 30 MG IM (18:15)
== END 2024-03-04 18:25 | disposition home or self-care (01) ==
LOC: SERX 18:14
PROVIDERS: Emergency Provider Emergency Medicine
DX: Z48.00 Encounter for change or removal of nonsurgical wound dressing (principal)
CPT/HCPCS: 96372; 99283; J1885; A9270

== ENCOUNTER 2024-03-11 16:52 | Emergency (ER) | payer MEDICAID, SELFPAY ==
[2024-03-11 16:10] VITALS: PULSE 92; RESP 10; O2SAT 98; BMI 33.6
[2024-03-11] MEDS: DEXTROSE 50%-WATER INJ 50 ML SYRINGE IV ×2 (16:15→16:16)
[2024-03-11] MEDS: ONDANSETRON INJ 2 MG/ML INJ 2 ML 4 MG IV (16:20)
[2024-03-11] MEDS: NALOXONE INJ 1 MG/ML SYRINGE 2 ML 2 MG IV (16:21)
--- NOTE | 2024-03-11 16:24 | PD.EDAMS ---
Altered Mental Status RME/HPI General Chief Complaint: Altered Mental Status Stated Complaint: AMS RME / HPI RME / HPI narrative: DR. BOURGEOIS MAIN ED EVALUATION: 48 year female presents to the Emergency Department [facility] from home with complaint of altered mental status. Per EMS, patient was talking with family when she became unresponsive and they called an ambulance. Glucose on scene per EMS was 132. Checked her glucose here and was 21 and after 2 amps of D50 patient is now awake. Able to ask patient about incident now that she is awake and alert. Patient states she checked her blood glucose and it was 124. She then proceeded with her normal dose of humalog 25 units. She does not recall what happened after that. PMHx: Type 2 diabetes mellitus (insulin-dependent), hypertension, kidney cancer status post partial nephrectomy, and history of right foot osteomyelitis. Social Hx: No tobacco, alcohol, or substance use. Related Data Home Medications ?Medication ?Instructions ?Recorded ?Confirmed gabapentin 600 mg tablet 1,200 mg PO TID 06/16/20 12/30/23 Previous Rx's ?Medication ?Instructions ?Recorded insulin syringe-needle U-100 1 mL #100 ea 02/22/20 28 gauge x 1/2 (BD Insulin Syringe) hydroxyzine HCl 25 mg tablet 25 mg PO HS PRN insom #30 tabs 06/06/23 blood pressure monitor (Blood #1 ea 06/28/23 Pressure Kit) flash glucose scanning reader #1 ea 01/13/24 (FreeStyle Zoey 2 [place]) flash glucose sensor (FreeStyle #1 ea 01/13/24 Zoey 2 Sensor kit) insulin glargine 100 unit/mL (3 10 unit (0.1 mL) subcut QPM #15 mL 01/13/24 mL) subcutaneous pen insulin glargine 100 unit/mL 10 unit (0.1 mL) subcut QPM #10 mL 01/13/24 subcutaneous solution acetaminophen 300 mg-codeine 30 mg 1 tab PO Q12H PRN pain #14 tabs 03/04/24 tablet ibuprofen 800 mg tablet 800 mg PO TID PRN pain #20 tabs 03/04/24 sulfamethoxazole 800 1 tab PO BID 14 days #28 tabs 03/04/24 mg-trimethoprim 160 mg tablet (Bactrim DS) Allergies Allergy/AdvReac Type Severity Reaction Status Date / Time No Known Allergies Allergy Unverified 03/11/24 16:26 Review of Systems Review of Systems ROS Unobtainable: unobtainable due to mental status Past Medical History Past Medical History NEUROLOGIC: Negative Neurological Disorders or Seizures CARDIAC: Positive Hypertension; Negative Cardiac Disorders or Congestive Heart Failure RESPIRATORY: Positive Asthma; Negative Chronic Obstructive Pulmonary Disease (COPD) GASTROINTESTINAL: Positive Obesity; Negative Gastrointestinal Disorders GENITOURINARY: Positive Renal Disease and Dialysis (last dialysis 03/01/24) REPRODUCTIVE: Positive Previous Pregnancies MUSCULOSKELETAL: Positive Arthritis and Osteomyelitis ENDOCRINE: Positive Endocrine Disorders and Diabetes Mellitus Type 2; Negative Diabetes Mellitus Type 1 HEMATOLOGIC: Negative Sickle Cell Disease PSYCHO/SOCIAL: Positive Bipolar Disorder, Depression and Anxiety OTHER HISTORY: Positive Hospitalization, Falls, Blood Transfusions and Chicken Pox; Negative Autoimmune Disease, Down Syndrome, Developmental Delay, Shingles, Blood Transfusion Reaction, Anesthesia Reactions or Organ Transplant Family History FAMILY HISTORY: Positive Family Cancer; Negative Family Respiratory Disorders, Family Cardiac Disorders, Family Gastrointestinal Problems, Family Surgery or Family Anesthesia Reaction Surgical History SURGICAL: Positive Abdominal Surgery, Amputation and Section; Negative Cardiac Surgery, Nephrectomy or Organ Transplant Social History SMOKING STATUS: Never smoker SECOND HAND EXPOSURE: No ED Exam Narrative Physical exam: GENERAL APPEARANCE: Initially patient was unresponsive, glucose here and was 21 and after 2 amps of D50 patient is now awake and oriented; well-developed, well-nourished, no acute distress VITALS: All vitals were reviewed and the pulse ox is 99% on 4 L/min via a nasal cannula. HEENT: Normocephalic, atraumatic; pupils equal, round, reactive to light; EOMI; mucous membranes pink, moist; oropharynx clear NECK: Supple LUNGS: CTABL; no wheezes, no rales, no rhonchi HEART: Regular rate, regular rhythm; normal S1, S2; no murmurs ABDOMEN: non distended; normal BS; soft, no tenderness, no guarding, no rebound; no masses, no organomegaly, no hernia BACK: no CVA tenderness EXTREMITIES: atraumatic; no edema NEUROLOGIC: awake after D50 initally unresponsive; cranial nerves II-XII grossly intact; no focal sensory or motor deficits PSYCHIATRIC: appropriate mood and affect SKIN: warm, dry, normal color; no rashes Course Quality Measures none Orders Category Date Time Status Dextrose 50% Syr [D50w Syringe Abboject] Med 03/11/24 16:13 Discontinued 50 ml IV X1 ONE Dextrose 50% Syr [D50w Syringe Abboject] Med 03/11/24 16:17 Discontinued 50 ml IV X1 ONE HYDROcodone*/APAP 5/325 [[place] 5/325] Med 03/11/24 17:42 Discontinued 1 tab PO X1 ONE NALOXONE INJ (Syringe) [Narcan Inj (Syringe)] Med 03/11/24 16:13 Discontinued 2 mg IV X1 ONE Ondansetron Inj [Zofran Inj] Med 03/11/24 16:15 Discontinued 4 mg .ROUTE .STK-MED ONE Ondansetron Inj [Zofran Inj] Med 03/11/24 16:15 Discontinued 4 mg IV X1 ONE Reevaluation(s) Reevaluation #1: Patient remains clinically stable throughout the emergency department visit. Re-assessment at the time of disposition demonstrates that the patient is in no acute distress. We reviewed all the results, analysis, and treatment plans. Patient is amenable to discharge. Strict return precautions were outlined. Patient was discharged in stable condition. Time: 17:40 Vital Signs Vital signs: Vital Signs Pulse Rate 86 03/11/24 16:27 Respiratory Rate 8 L 03/11/24 16:27 Blood Pressure 148/82 H 03/11/24 16:27 Pulse Oximetry (%) 100 03/11/24 16:27 Oxygen Delivery Method Nasal Cannula 03/11/24 16:27 Oxygen Flow Rate 4 03/11/24 16:27 Altered Mental Status MDM Narrative MDM Narrative:: IErica am scribing for and in the presence of Dr. Bourgeois. Patient data External records reviewed:: [facility] previous records (Reviewed last ED visit dated 03/04/24, discharged with the following: Visit for wound check) Clinical information provided by:: EMS Social determinants that could affect healthcare access:: none Patient has the following chronic illnesses:: type 2 diabetes mellitus (insulin-dependent), hypertension, kidney cancer status post partial nephrectomy, and history of right foot osteomyelitis How is presenting disease/condition affected by chronic disease/condition?: exacerbated by Evaluation data The following diagnostics were reviewed and interpreted by me:: other (specify) (none) Lab and/or radiology exams considered but not ordered:: none Interpretation Summary: Hypoglycemia, glucose here and was 21. Medications / Prescriptions Medications or Prescriptions considered but not ordered:: none Medication administrations:: Medication Administration History Discontinued Medications Hydrocodone Bitart/Acetaminophen (Hydrocodone/Apap 5/325 Tablet) 1 tab PO X1 ONE Stop: 03/11/24 17:43 Last Admin: 03/11/24 17:52 Dose: 1 tab Documented By: NORTH Dextrose (Dextrose 50%-Water Inj 50 Ml Syringe) 50 ml IV X1 ONE Stop: 03/11/24 16:14 Last Admin: 03/11/24 16:15 Dose: 50 ml Documented By: NORTH Dextrose (Dextrose 50%-Water Inj 50 Ml Syringe) 50 ml IV X1 ONE Stop: 03/11/24 16:18 Last Admin: 03/11/24 16:16 Dose: 50 ml Documented By: NORTH Naloxone HCl (Naloxone Inj 1 Mg/Ml Syringe 2 Ml) 2 mg IV X1 ONE Stop: 03/11/24 16:14 Last Admin: 03/11/24 16:21 Dose: 2 mg Documented By: NORTH Ondansetron HCl (Ondansetron Inj 2 Mg/Ml Inj 2 Ml) 4 mg IV X1 ONE; Protocol Stop: 03/11/24 16:16 Last Admin: 03/11/24 16:20 Dose: 4 mg Documented By: NORTH Ondansetron HCl (Ondansetron Inj 2 Mg/Ml Inj 2 Ml) Confirm Administered Dose 4 mg .ROUTE .STK-MED ONE Stop: 03/11/24 16:16 Last Admin: 03/11/24 16:36 Dose: Not Given Documented By: NORTH Non-Admin Reason: Override Medication see above Consultations Consultation(s) initiated? (list below): No Diagnosis Differential diagnosis altered mental status: altered mental status, hypoglycemia and other (dehydration, electrolyte imbalance) Most likely diagnosis given after review of the tests above:: Hypoglycemia Admission Indicated Admission indicated?: not indicated Admission Request Was there a request for admission?: No Disposition Plan Disposition Plan: Discharge Discharge Attestation Discharge Attestation: The patient and all family members were given an opportunity to ask questions and understood the discharge instructions. Discharge instructions specifically effects, indications for sooner follow up or return to the emergency department, and the expected course of current diagnosis. Patient condition: Stable Discharge Plan Plan Patient Disposition: HOME (Self Care) Prescriptions/Referrals Prescriptions/Med Rec: No Action gabapentin 600 mg Tablet 1,200 mg PO TID (DME) insulin syringe-needle U-100 [BD Insulin Syringe] 1 mL 28 gauge x 1/2 syringe See Rx Instructions .ROUTE .MEDSUPPLY Qty: 100 0RF Rx Instructions: As directed (DME) FreeStyle Zoey 2 [place] Misc See Rx Instructions .Route Qty: 1 2RF Rx Instructions: As directed; once daily insulin glargine 100 unit/mL solution 10 unit subcut QPM Qty: 10 4RF insulin glargine 100 unit/mL (3 mL) insulin pen 10 unit subcut QPM Qty: 15 4RF (DME) FreeStyle Zoey 2 Sensor Kit See Rx Instructions .Route Qty: 1 3RF Rx Instructions: As directed once daily sulfamethoxazole-trimethoprim [Bactrim DS] 800-160 mg tablet 1 tab PO BID 14 Days Qty: 28 0RF ibuprofen 800 mg tablet 800 mg PO TID PRN (Reason: pain) Qty: 20 0RF acetaminophen-codeine 300-30 mg tablet 1 tab PO Q12H PRN (Reason: pain) Qty: 14 0RF hydroxyzine HCl 25 mg tablet 25 mg PO HS PRN (Reason: insom) Qty: 30 0RF (DME) blood pressure monitor [Blood Pressure Kit] Kit See Rx Instructions .Route Qty: 1 0RF Rx Instructions: As directed Problem List Clinical Impression: Hypoglycemia Patient/Caregiver Discharge Instructions Education Materials: Hypoglycemia (Low Blood Sugar) Print Language: Greenlandic Stand Alone Forms: Monik Award Info., Patient Portal Info Letter
[2024-03-11 16:27] VITALS: BP 148/82; PULSE 86; RESP 8; O2SAT 100
[2024-03-11 16:37] VITALS: BP 146/82; PULSE 85; RESP 16; O2SAT 99
[2024-03-11 17:37] VITALS: TEMP 36.5
[2024-03-11] MEDS: HYDROcodone/APAP 5/325 TABLET 1 TAB PO (17:52)
[2024-03-11 18:18] VITALS: BP 154/88; PULSE 72; RESP 12; TEMP 36.6; O2SAT 94
[2024-03-11 19:40] VITALS: BP 128/80; PULSE 72; RESP 17; TEMP 36.3; O2SAT 97
== END 2024-03-11 19:40 | disposition home or self-care (01) ==
PROVIDERS: Emergency Provider Emergency Medicine; PCP Nurse Practitioner Family
DX: E11.649 Type 2 diabetes mellitus with hypoglycemia without coma (principal); R94.31 Abnormal electrocardiogram [ECG] [EKG]; I10 Essential (primary) hypertension; Z79.4 Long term (current) use of insulin
CPT/HCPCS: 93005; 96374; 99284; J2310; J2405; A9270

== ENCOUNTER 2024-05-25 23:09 | Emergency (ER) | payer MEDICAID, SELFPAY ==
[2024-05-25 23:23] VITALS: PULSE 76; RESP 19; O2SAT 99; BMI 36.6
[2024-05-25 23:39] VITALS: BP 164/91; PULSE 70; RESP 18; TEMP 36.6; O2SAT 100
[2024-05-26] VITALS (47 sets, daily range): BP systolic 127–209; BP diastolic 10–123; PULSE 63–93; RESP 12–20; TEMP 36.4–36.6; O2SAT 95–100
--- NOTE | 2024-05-26 | XR_ITS ---
Ultrasound-guided needle placement left internal jugular vein Permanent tunneled dialysis catheter insertion, percutaneous Fluoroscopy AP chest, portable, 2 views Date and time of procedure: May 26, 2024 1042 hours INDICATIONS: Renal failure, need for stat and long-term dialysis Informed consent provided Technique: A timeout was completed verifying correct patient, procedure, site, positioning, and special equipment if applicable. The patient was placed in a dependent position appropriate for dialysis catheter placement based on the vein to be cannulated. The patient'sleft neck was prepped and draped in sterile fashion. Maximum Sterile Barrier Technique used including cap, mask, sterile gown, sterile gloves, and sterile full body drape. If ultrasound technique used: sterile gel and sterile probe covers. Hand Hygiene performed using proper scrub, soap and water, or alcohol-based hand rub. 1% lidocaine was used to anesthetize the surrounding skin area [employer] portable ultrasound apparatus utilized to confirm patency of the left internal jugular vein Utilizing ultrasonographic guidance successful 21-gauge needle puncture left internal jugular vein. Ultrasound images were recorded and stored. Vessel micropuncture was performed with 21-gauge needle. 0.18 wire guide is introduced into the vein. 0.18 wire is introduced into the vena cava under fluoroscopy. Subcutaneous tunnel formed in the upper chest. Permanent tunneled dialysis catheter placed in the subcutaneous tunnel. Dilators were introduced over the J-wire guide. Tunneled dialysis catheter is introduced through a dilator with venous sheath into the superior vena cava under fluoroscopic guidance. The catheter is sutured in place to the skin and a sterile dressing applied. Perfusion to the extremity distal to the point of catheter insertion is checked and found to be adequate Attending radiologist was present for the entire procedure Estimated blood loss2 cc. The patient tolerated the procedure well and there were no complications Impression: Successful ultrasound-guided needle placement left internal jugular vein Successful permanent tunneled dialysis catheter insertion, percutaneous Fluoroscopy 1.0 minute radiation dose 10.66 milligray 2 spot fluoroscopic chest films. AP chest performed at completion procedure demonstrates satisfactory position dialysis catheter. May use dialysis catheter.
--- NOTE | 2024-05-26 00:30 | EDNOTE_ITS ---
ED General RME/HPI General Chief complaint: General Adult/Misc Complain Stated complaint: DIALYSIS PORT FALLOUT Time Seen by Provider: 05/25/24 23:31 Source: patient and EMS Arrival date/time: 05/25/24 23:09 Mode of arrival: EMS Limitations: no limitations RME / HPI RME / HPI narrative: Dr. Serrano?s Main ED Evaluation: Legally blind 48-year-old female with a past medical history of insulin- dependent type 2 diabetes mellitus, hypertension, kidney cancer status post partial nephrectomy, and right foot osteomyelitis s/p debridement and partial amputations presents to the ED after her dialysis catheter was found dislodged. Per patient, she was asleep when her brother noticed a portion of the dialysis catheter on the floor; she denies bleeding at the site. She is under the care of Dr. Moreland (nephrology) and attends hemodialysis at [facility] on Mondays, Wednesdays, and Fridays. She reports she has an upcoming appointment for dialysis graft placement. She also reports a mechanical fall in the shower on Friday with ongoing left- sided rib pain since the incident. Related Data Home Medications ?Medication ?Instructions ?Recorded ?Confirmed gabapentin 600 mg tablet 1,200 mg PO TID 06/16/2007/17 Previous Rx's ?Medication ?Instructions ?Recorded insulin syringe-needle U-100 1 mL #100 ea 02/22/20 28 gauge x 1/2 (BD Insulin Syringe) hydroxyzine HCl 25 mg tablet 25 mg PO HS PRN insom #30 tabs 06/06/23 blood pressure monitor (Blood #1 ea 06/28/23 Pressure Kit) flash glucose scanning reader #1 ea 01/13/24 (FreeStyle Zoey 2 Gardiner) flash glucose sensor (FreeStyle #1 ea 01/13/24 Zoey 2 Sensor kit) insulin glargine 100 unit/mL (3 10 unit (0.1 mL) subcu t QPM #15 mL 01/13/24 mL) subcutaneous pen insulin glargine 100 unit/mL 10 unit (0.1 mL) subcut Q PM #10 mL 01/13/24 subcutaneous solution acetaminophen 300 mg-codeine 30 mg 1 tab PO Q12H PRN p ain #14 tabs 03/04/24 tablet ibuprofen 800 mg tablet 800 mg PO TID PRN pain #20 t abs 03/04/24 Allergies Allergy/AdvReac Type Severity Reaction Status Date / Time No Known Allergies Allergy Unverified 03/11/24 16:26 Review of Systems Review of Systems Systems Reviewed: All systems reviewed, normal except as documented Past Medical History Past Medical History NEUROLOGIC: Negative Neurological Disorders or Seizures CARDIAC: Positive Heart Murmur and Hypertension; Negative Cardiac Disorders or Congestive Heart Failure RESPIRATORY: Positive Asthma; Negative Chronic Obstructive Pulmonary Disease (COPD) GASTROINTESTINAL: Positive Obesity; Negative Gastrointestinal Disorders GENITOURINARY: Positive Renal Disease and Dialysis REPRODUCTIVE: Positive Previous Pregnancies MUSCULOSKELETAL: Positive Arthritis and Osteomyelitis ENDOCRINE: Positive Endocrine Disorders and Diabetes Mellitus Type 2; Negative Diabetes Mellitus Type 1 HEMATOLOGIC: Negative Sickle Cell Disease PSYCHO/SOCIAL: Positive Bipolar Disorder, Depression and Anxiety OTHER HISTORY: Positive Hospitalization, Falls, Blood Transfusions and Chicken Pox; Negative Autoimmune Disease, Down Syndrome, Developmental Delay, Shingles, Blood Transfusion Reaction, Anesthesia Reactions or Organ Transplant Family History FAMILY HISTORY: Positive Family Cancer; Negative Family Respiratory Disorders, Family Cardiac Disorders, Family Gastrointestinal Problems, Family Surgery or Family Anesthesia Reaction Surgical History SURGICAL: Positive Abdominal Surgery, Amputation and Section; Negative Cardiac Surgery, Nephrectomy or Organ Transplant Social History SMOKING STATUS: Never smoker SECOND HAND EXPOSURE: No ED Exam Narrative Physical exam: GENERAL APPEARANCE: alert and oriented x 4, well-developed, well-nourished, no acute distress VITALS: All vitals were reviewed and the pulse ox is 100% on room air, which is normal according to my interpretation. HEENT: Normocephalic, atraumatic; pupils equal, round, reactive to light; EOMI; mucous membranes pink, moist; oropharynx clear NECK: Supple LUNGS: CTABL; no wheezes, no rales, no rhonchi HEART: Regular rate, regular rhythm; normal S1, S2; no murmurs CHEST: Tenderness on palpation of left anterior and lateral ribs ABDOMEN: non distended; normal BS; soft, no tenderness, no guarding, no rebound; no masses, no organomegaly, no hernia BACK: no CVA tenderness EXTREMITIES: atraumatic; no edema NEUROLOGIC: awake; alert and oriented x4; cranial nerves II-XII grossly intact; no focal sensory or motor deficits PSYCHIATRIC: appropriate mood and affect SKIN: warm, dry, normal color; no rashes General Limitations: Present no limitations Course Quality Measures none Orders Category Date Time Status [employer]er STAT Care 05/26/24 01:08 Active Continuous Pulse Oximetry ONCE Care 05/26/24 01:08 Active EKG (ED ONLY) *Do not use* NOW Care 05/26/24 01:08 Completed Insert IV STAT Care 05/26/24 01:08 Completed EKG (ED Only) Stat Exams 05/26/24 01:08 Draft XR ribs LT min 3V w CXR1V Stat Exams 05/26/24 01:43 Taken CBC Stat Lab 05/26/24 01:36 Completed Comprehensive Metabolic Panel Stat Lab 05/26/24 01:36 Completed Lipase Stat Lab 05/26/24 01:36 Completed Magnesium Stat Lab 05/26/24 01:36 Completed Partial Thromboplastin Time Stat Lab 05/26/24 01:36 Completed Prothrombin Time with INR Stat Lab 05/26/24 01:36 Completed Acetaminophen Ivpb [Ofirmev Inj] Med 05/26/24 01:11 Discontinued 1,000 mg in 100 ml IV X1 HYDROmorphone INJ [Dilaudid Inj] Med 05/26/24 01:15 Active 0.5 mg IVP Q30MIN PRN Ondansetron Inj [Zofran Inj] Med 05/26/24 01:10 Discontinued 4 mg IV X1 ONE Vital Signs Vital signs: Vital Signs Temperature 97.8 F 05/25/24 23:39 Pulse Rate 70 05/25/24 23:39 Respiratory Rate 18 05/25/24 23:39 Blood Pressure 164/91 H 05/25/24 23:39 Pulse Oximetry (%) 100 05/25/24 23:39 Oxygen Delivery Method Room Air 05/25/24 23:39 [facility] [place] Patient data External records reviewed:: [facility] previous records and EMS form Clinical information provided by:: patient and EMS Social determinants that could affect healthcare access:: housing Patient has the following chronic illnesses:: see PMH How is presenting disease/condition affected by chronic disease/condition?: u neffected by Evaluation data The following diagnostics were reviewed and interpreted by me:: lab results, radiology exam(s) and EKG tracing(s) Lab and/or radiology exams considered but not ordered:: n/a Interpretation Summary: I personally reviewed the radiology data and agree with the radiologist's interpretation. Medications Medications considered but not ordered:: n/a Medication administrations:: Medication Administration History Hydromorphone HCl (Hydromorphone Inj 2 Mg/Ml Vial) 0.5 mg IVP Q30MIN PRN PRN Reason: PAIN Stop: 05/31/24 01:14 Last Admin: 05/26/24 01:38 Dose: 0.5 mg Documented By: LULY Discontinued Medications Acetaminophen (Ofirmev Inj) 1,000 mg in 100 mls @ 250 mls/hr IV X1 ONE Stop: 05/26/24 01:34 Last Infusion: 05/26/24 03:55 Dose: Infused Documented By: JORGE LUIS Admin: 05/26/24 01:37 Dose: 250 mls/hr Documented By: LULY Ondansetron HCl (Ondansetron Inj 2 Mg/Ml Inj 2 Ml) 4 mg IV X1 ONE; Protocol Stop: 05/26/24 01:11 Last Admin: 05/26/24 01:38 Dose: 4 mg Documented By: LULY as above, if any Consultations Consultation(s) initiated? (list below): Yes Consultation #1 (Physician, Specialty, Details): See MDM narrative Diagnosis Differential Diagnosis ED Complaint MDM: Rib fracture, chest contusion, dialysis malfunction Most likely diagnosis given after review of the tests above:: See clinical impression below Admission Indicated Admission indicated?: not indicated Explain why admission is indicated or not indicated:: See [facility] Admission Request Was there a request for admission?: No Disposition Plan Disposition Plan: other (specify) (signout) Medical Decision Making MDM Narrative MDM Narrative: This is a 48-year-old legally blind female with a complex medical history including insulin-dependent type 2 diabetes mellitus, hypertension, HFpEF (EF 60?65%), kidney cancer s/p partial nephrectomy, and right foot osteomyelitis s/p partial amputation, presenting after her dialysis catheter was found dislodged. Patient was unaware of the event, which was discovered by her brother. She denies bleeding at the site. She receives hemodialysis on at [facility] and is followed by Dr. Moreland. Additionally, patient reports a fall in the shower on Friday with ongoing left-sided rib pain. She denies chest pain or shortness of breath. Differential includes rib fractures, pneumothorax, catheter dialysis malfunction Plan include continuous cardiac monitoring and pulse oximetry, IV access, and diagnostic testing including EKG, chest X-ray, left ribs xray, CT chest without contrast, CBC, CMP, PT/INR, PTT, magnesium, and lipase. Nephrology consultation. Medications ordered include acetaminophen and dilaudid for pain management, and ondansetron. Manual EKG obtained at 01:48 shows normal sinus rhythm at a rate of 68 bpm with normal axis, no ectopy, and no signs of acute ischemia per my interpretation. CXR shows normal cardiac silhouette, normal sharp diaphragmatic edge, no infiltrates, normal costophrenic angles, according to my interpretation. 0504 Case d/w Dr. Moreland who states for patient to be referred to Dr. Cooper at 0800 for dialysis catheter placement and then discharge. Inpatient hospitalization not warranted. 0600 [facility]. Past medical, surgical, social and family history reviewed. Vitals and home medications reviewed. Results and treatment plan discussed. They will assume the care of the patient at this time and will follow the patient, pending dialysis catheter placement by Dr. Cooper and final disposition. Scribe Attestation: I, Eli Wright, am scribing for and in the presence of Dr. Serrano. Provider Notation: Although this document has been carefully reviewed, there may still be some phonetic and other typographical errors. These errors are purely grammatical due to imperfections in the software program and should not be construed in any way to compromise the substance of the patient's medical care during this visit. Differential Diagnosis Differential Diagnosis: Rib fracture, chest contusion, dialysis malfunction Medical Records Medical records reviewed: Yes I reviewed the patient's medical records. Lab Data Lab results reviewed: Yes I reviewed the patient's lab results. 05/26/24 01:36 05/26/24 01:36 Labs: Lab Results 05/26/24 Range/Units 01:36 WBC 9.1 (3.6-11.0) Thou/mm3 RBC 4.39 (4.00-5.20) Miln/mm3 Hgb 12.5 (12.0-16.0) g/dL Hct 40.3 (36.0-46.0) % MCV 92 (80-100) fL MCH 28.5 (25.0-35.0) pg MCHC 31.0 (31.0-37.0) g/dl RDW Std Deviation 52.9 H (36.4-46.3) fL Plt Count 268 (140-440) Thou/mm3 Neut % (Auto) 61 (37-80) % Lymph % (Auto) 24 (10-50) % Dukes % (Auto) 10 (0-12) % Eos % (Auto) 3 (0-10) % Baso % (Auto) 1 (0-2.5) % Neut # (Auto) 5.6 (1.8-7.7) Thou/mm3 Lymph # (Auto) 2.2 (1.0-4.8) Thou/mm3 Dukes # (Auto) 0.9 H (0.0-0.8) Thou/mm3 Eos # (Auto) 0.3 (0.0-0.5) Thou/mm3 Baso # (Auto) 0.1 (0.0-0.2) Thou/mm3 Immature Gran # (Auto) 0.05 H (0.00-0.00) Thou/mm3 Absolute Nucleated RBC 0.00 (0.00-0.00) Thou/mm3 Immature Gran % 1 H (0-0) % Nucleated RBC % 0 (0) /100 WBC PT 10.3 (9.0-12.2) Seconds INR 0.9 (0.9-1.3) APTT 28.5 (22.0-36.0) Seconds Sodium 144 (136-145) mMol/L Potassium 4.6 (3.4-5.1) mMol/L Chloride 110 H (98-107) mMol/L Carbon Dioxide 27.4 (20.0-31.0) mMol/L Anion Gap 7 (7-16) BUN 49 H (9-23) mg/dL Creatinine 5.6 H* (0.6-1.3) mg/dL Estim Creat Clear Calc 13.9 L (>60) mL/min eGFR 9 L* (60 - ) See Note BUN/Creatinine Ratio 9 L (12-20) Ratio Glucose 117 H (74-106) mg/dL Calculated Osmolality 300 H (275-295) Calcium 8.3 (8.3-10.6) mg/dL Corrected Calcium 8.9 (8.5-10.1) mg/dL Magnesium 2.8 H (1.6-2.6) mg/dL Total Bilirubin 0.2 L (0.3-1.2) mg/dL AST 67 H (0-34) U/L ALT 53 H (10-49) U/L Alkaline Phosphatase 237 H (46-116) U/L Total Protein 6.1 (5.7-8.2) gm/dL Albumin 3.2 L (3.5-5.0) gm/dL Globulin 2.9 (2.3-3.5) gm/dL Albumin/Globulin Ratio 1.1 L (1.2-2.2) Lipase 36 (12-53) U/L Radiology Data Radiology results reviewed: Yes I reviewed the patient's radiology results. Discharge Plan Prescriptions/Referrals Prescriptions/Med Rec: No Action gabapentin 600 mg Tablet 1,200 mg PO TID (DME) insulin syringe-needle U-100 [BD Insulin Syringe] 1 mL 28 gauge x 1/2 syringe See Rx Instructions .ROUTE .MEDSUPPLY Qty: 100 0RF Rx Instructions: As directed (DME) FreeStyle Zoey 2 Gardiner Misc See Rx Instructions .Route Qty: 1 2RF Rx Instructions: As directed; once daily insulin glargine 100 unit/mL solution 10 unit subcut QPM Qty: 10 4RF insulin glargine 100 unit/mL (3 mL) insulin pen 10 unit subcut QPM Qty: 15 4RF (DME) FreeStyle Zoey 2 Sensor Kit See Rx Instructions .Route Qty: 1 3RF Rx Instructions: As directed once daily ibuprofen 800 mg tablet 800 mg PO TID PRN (Reason: pain) Qty: 20 0RF acetaminophen-codeine 300-30 mg tablet 1 tab PO Q12H PRN (Reason: pain) Qty: 14 0RF hydroxyzine HCl 25 mg tablet 25 mg PO HS PRN (Reason: insom) Qty: 30 0RF (DME) blood pressure monitor [Blood Pressure Kit] Kit See Rx Instructions .Route Qty: 1 0RF Rx Instructions: As directed Referrals: Lesia Kramer MD [Primary Care Provider] - In 1 week Problem List Clinical Impression: Dialysis AV fistula malfunction Patient/Caregiver Discharge Instructions Print Language: Kiswahili
--- NOTE | 2024-05-26 01:08 | EKG_ITS ---
[facility] Test Date: 2024-05-26 Pat Name: ARVIN FUNEZ Department: Room: - Gender: Female Critical Care Clinical Nurse Specialist: : [id number] Requested By: Flex Fernandez Order Number: [id number] Reading MD: Flex Fernandez Measurements Intervals [place] Rate: 63 P: 55 WA: 158 QRS: 49 QRSD: 86 T: 89 QT: 432 QTc: 444 Interpretive Statements SINUS RHYTHM NONSPECIFIC T-WAVE ABNORMALITY Compared to ECG 01/26/2024 18:26:12 T-wave abnormality now present Myocardial infarct finding no longer present /store/S0/[id number]/ecg/[id number].pdf
[2024-05-26] MEDS: ACETAMINOPHEN IVPB 1,000 MG/100 ML VIAL 250 MG IV (01:37)
[2024-05-26] MEDS: ONDANSETRON INJ 2 MG/ML INJ 2 ML 4 MG IV (01:38)
[2024-05-26] MEDS: HYDROmorphone INJ 2 MG/ML VIAL 0.5 MG IVP ×3 (01:38→15:17)
[2024-05-26 01:43] LABS: Basophils # (Auto) 0.1 Thou/mm3 (0.0-0.2); Basophils % (Auto) 1 % (0-2.5); Eosinophils # (Auto) 0.3 Thou/mm3 (0.0-0.5); Eosinophils % (Auto) 3 % (0-10); Hematocrit 40.3 % (36.0-46.0); Hemoglobin 12.5 g/dL (12.0-16.0); Immature Granulocytes % (Auto) 1 % (0-0); Immature Granulocytes Auto 0.05 Thou/mm3 (0.00-0.00); Lymphocytes # (Auto) 2.2 Thou/mm3 (1.0-4.8); Lymphocytes % (Auto) 24 % (10-50); Mean Corpuscular Hemoglobin 28.5 pg (25.0-35.0); Mean Corpuscular Volume 92 fL (80-100); Monocytes # (Auto) 0.9 Thou/mm3 (0.0-0.8); Monocytes % (Auto) 10 % (0-12); Neutrophils # (Auto) 5.6 Thou/mm3 (1.8-7.7); Neutrophils % (Auto) 61 % (37-80); Nucleated Red Blood Cell % 0 /100 WBC (0); Platelet Count 268 Thou/mm3 (140-440); RDW Standard Deviation 52.9 fL (36.4-46.3); Red Blood Count 4.39 Miln/mm3 (4.00-5.20); White Blood Count 9.1 Thou/mm3 (3.6-11.0)
--- NOTE | 2024-05-26 01:43 | XR_ITS ---
Examination: Ribs, left, with PA chest, 5 views Technique: Chest PA, RIBS AP, RPO, LPO, AP coned lower ribs 5 views Exam date and time: May 26, 2024 0158 hours INDICATIONS: Patient fell today with injury to the left chest, left rib pain FINDINGS: Normal heart size. No pneumothorax Mild osteopenia No acute rib fractures IMPRESSION: No pneumothorax pulmonary contusion or hemothorax No acute rib fractures
[2024-05-26 03:52] LABS: Alanine Aminotransferase 53 U/L (10-49); Albumin, Serum 3.2 gm/dL (3.5-5.0); Albumin/Globulin Ratio 1.1 (1.2-2.2); Alkaline Phosphatase 237 U/L (46-116); Anion Gap 7 (7-16); Aspartate Amino Transferase 67 U/L (0-34); BUN/Creatinine Ratio 9 Ratio (12-20); Bilirubin,Total 0.2 mg/dL (0.3-1.2); Blood Urea Nitrogen 49 mg/dL (9-23); Calcium 8.3 mg/dL (8.3-10.6); Calcium (Corrected) 8.9 mg/dL (8.5-10.1); Carbon Dioxide 27.4 mMol/L (20.0-31.0); Chloride 110 mMol/L (98-107); Creatinine (Component) 5.6 mg/dL (0.6-1.3); Estimated Creatinine Clearance 13.9 mL/min (>60); Globulin 2.9 gm/dL (2.3-3.5); Glucose 117 mg/dL (74-106); Lipase 36 U/L (12-53); Magnesium 2.8 mg/dL (1.6-2.6); Osmolality,Calculated 300 (275-295); Potassium 4.6 mMol/L (3.4-5.1); Sodium 144 mMol/L (136-145); Total Protein 6.1 gm/dL (5.7-8.2); eGFR 9 See Note
[2024-05-26 03:56] LABS: INR 0.9 (0.9-1.3); Partial Thromboplastin Time 28.5 Seconds (22.0-36.0); Prothrombin Time 10.3 Seconds (9.0-12.2)
--- NOTE | 2024-05-26 04:03 | PC.NURSE ---
WE HAD DOWN TIME FROM [id number].
[2024-05-26] MEDS: hydrALAZINE INJ 20 MG/ML VIAL 10 MG IV ×2 (05:24→09:11)
--- NOTE | 2024-05-26 06:39 | EDNOTE_ITS ---
Emergency Room Addendum <Birgit Philip - Last Filed: 05/26/24 13:58> Addendum Narrative: 0600: Care assumed from Dr. Ulises Serrano, the previous shift emergency physician. Past medical, surgical, social and family history reviewed. Vitals and home medications reviewed. I will assume the care of the patient at this time pending dialysis catheter placement. Please refer to the emergency department record for history and examination from initial visit.?The following addendum documentation note is intended to reflect any pending information, findings, or radiology results not included in the patient?s initial chart. 1340: I have spoken with the patient and discussed today?s findings, in addition to providing specific details for the plan of care. Questions are answered and there is an agreement with the plan. Re-assessment at the time of disposition demonstrates that the patient is in no acute distress. The patient has remained stable throughout the entire ED visit and is without objective evidence for acute process requiring urgent i ntervention or hospitalization. The patient is stable for discharge; counseling is provided and documented as above, discussed symptomatic treatment and specific conditions for return. <Dona Shipman - Last Filed: 05/30/24 06:47> Addendum Narrative: 0600: Care assumed from Dr. Ulises Serrano, the previous shift emergency physician. Past medical, surgical, social and family history reviewed. Vitals and home medications reviewed. I will assume the care of the patient at this time pending dialysis catheter placement. Please refer to the emergency department record for history and examination from initial visit.?The following addendum documentation note is intended to reflect any pending information, findings, or radiology results not included in the patient?s initial chart. 1340: I have spoken with the patient and discussed today?s findings, in addition to providing specific details for the plan of care. Questions are answered and there is an agreement with the plan. 1510: Patient had been queued for discharge however nephrologost Dr. Moreland has ordered for in-house dialysis. Will DC patient once she returns.
--- NOTE | 2024-05-26 08:46 | PC.LAC ---
pt ambulated to the restroom with moderate assist. tolerated well
--- NOTE | 2024-05-26 08:55 | PC.NURSE ---
provider noticed of high bp. orders received
--- NOTE | 2024-05-26 09:03 | PD.RESCONSUL ---
HPI Data of Consult Patient: known to practice within the last 3 years Consult date: 05/26/24 Requesting Physician: Dr. Serrano Primary Care Provider: Lesia Kramer MD Consult Narrative Reason for consult: Dislodged dialysis catheter, ESRD History of present illness: Ms. Costa is a 49-year-old female past medical history of insulin-dependent diabetes, hypertension, kidney cancer status post nephrectomy, diabetic foot ulcer status post amputations that presented to the ER after her dialysis catheter was dislodged. Patient states that she went to bed and around 9 PM last night her brother came into the room urging that her dialysis catheter was laying on the floor next to her. Patient does not know how the catheter became dislodged and she denies any bleeding at the time. She was rushed over via ambulance to our ED. The patient follows up with Dr. Moreland for dialysis M/W/ and she was scheduled for dialysis today. Patient otherwise denies any shortness of breath, chest pain, palpitations, dizziness, blurry vision, nausea, vomiting, diarrhea or constipation. Patient did state that a couple days prior to presentation she did have a mechanical fall where she fell onto her right side and struck her right rib cage. In the ED blood pressure was 190/97 at bedside Pulse 70, RR 15, temp 97.6, O2 sat 98 on room air CBC was grossly unremarkable CMP was significant for a BUN of 49 and a creatinine of 5.6 Transaminases were mildly elevated at 67 and 53 and alk phos was 237. EKG showed sinus rhythm Chest x-ray showed no rib fractures, hemothorax or pulmonary contusions. The ED physician consulted us this morning and arrangements were made with IR to insert a new catheter today and will plan for dialysis and likely discharge the patient. cc:: cc: Review of Systems Review of Systems Systems Reviewed: All systems reviewed, normal except as documented Past Medical History Past Medical History NEUROLOGIC: Negative Neurological Disorders or Seizures CARDIAC: Positive Heart Murmur and Hypertension; Negative Cardiac Disorders or Congestive Heart Failure RESPIRATORY: Positive Asthma; Negative Chronic Obstructive Pulmonary Disease (COPD) GASTROINTESTINAL: Positive Obesity; Negative Gastrointestinal Disorders GENITOURINARY: Positive Renal Disease and Dialysis REPRODUCTIVE: Positive Previous Pregnancies MUSCULOSKELETAL: Positive Arthritis and Osteomyelitis ENDOCRINE: Positive Endocrine Disorders and Diabetes Mellitus Type 2; Negative Diabetes Mellitus Type 1 HEMATOLOGIC: Negative Sickle Cell Disease PSYCHO/SOCIAL: Positive Bipolar Disorder, Depression and Anxiety OTHER HISTORY: Positive Hospitalization, Falls and Chicken Pox; Negative Autoimmune Disease, Down Syndrome, Developmental Delay, Shingles, Blood Transfusions, Blood Transfusion Reaction, Anesthesia Reactions or Organ Transplant Family History FAMILY HISTORY: Positive Family Cancer; Negative Family Respiratory Disorders, Family Cardiac Disorders, Family Gastrointestinal Problems, Family Surgery or Family Anesthesia Reaction Surgical History SURGICAL: Positive Abdominal Surgery, Amputation and Section; Negative Cardiac Surgery, Nephrectomy or Organ Transplant Social History SMOKING STATUS: Never smoker SECOND HAND EXPOSURE: No Exam Vital Signs Temp Pulse Resp BP Pulse Ox O2 Del Method 97.6 F 70 15 176/96 H 98 Room Air 05/26/24 08:15 05/26/24 08:15 05/26/24 08:15 05/26/24 08:15 05/26/24 08:15 05/26/24 08:15 Narrative Exam Constitutional: Well nourished and in no acute distress CVS: RRR, S1 and S2 present, no murmurs, rubs or gallops . There is a open incision on the right chest wall with the catheter was inserted without any bleed. RESP: CTAB, no SOB, no rales, rhonchi or wheezing. No respiratory Distress GI: Normal BS, Nontender/Nondistended. MSK: Full range of motion, No trauma or deformities or masses. There is well-healed scar of the left foot status post amputation of the great toe as well as third and fourth digits. Skin: Warm to touch, Dry. No rashes or lesions. No hematomas Neuro: reproduction order processor II-XII grossly intact. Sensation grossly intact. Psych: (AAO) x3 . Appropriate mood and affect. Results Labs 05/26/24 01:36 05/26/24 01:36 Labs: Short CBC 05/26/24 Range/Units 01:36 WBC 9.1 (3.6-11.0) Thou/mm3 Hgb 12.5 (12.0-16.0) g/dL Hct 40.3 (36.0-46.0) % Plt Count 268 (140-440) Thou/mm3 BMP 05/26/24 01:36 Sodium 144 Potassium 4.6 Chloride 110 H Carbon Dioxide 27.4 BUN 49 H Creatinine 5.6 H* Glucose 117 H Calcium 8.3 Liver Function 05/26/24 Range/Units 01:36 Total Bilirubin 0.2 L (0.3-1.2) mg/dL AST 67 H (0-34) U/L ALT 53 H (10-49) U/L Alkaline Phosphatase 237 H (46-116) U/L Albumin 3.2 L (3.5-5.0) gm/dL Quality Measures Quality Measures none Medications Home Medications and Allergies Home Medications ?Medication ?Instructions ?Recorded ?Confirmed ?Type gabapentin 600 mg tablet 1,200 mg PO TID 06/16/20 12/30/23 History Allergies Allergy/AdvReac Type Severity Reaction Status Date / Time No Known Allergies Allergy Unverified 03/11/24 16:26 Visit Medications Hydromorphone HCl (Hydromorphone Inj 2 Mg/Ml Vial) 0.5 mg IVP Q30MIN PRN PRN Reason: PAIN Stop: 05/31/24 01:14 Last Admin: 05/26/24 08:30 Dose: 0.5 mg Discontinued Medications Clonidine (Clonidine Hcl 0.1 Mg Tablet) 0.1 mg PO X1 ONE Stop: 05/26/24 08:59 Hydralazine HCl (Hydralazine Inj 20 Mg/Ml Vial) 10 mg IV X1 ONE Stop: 05/26/24 05:11 Last Admin: 05/26/24 05:24 Dose: 10 mg Hydralazine HCl (Hydralazine Inj 20 Mg/Ml Vial) 10 mg IV X1 ONE Stop: 05/26/24 08:59 Acetaminophen (Ofirmev Inj) 1,000 mg in 100 mls @ 250 mls/hr IV X1 ONE Stop: 05/26/24 01:34 Last Infusion: 05/26/24 03:55 Dose: Infused Ondansetron HCl (Ondansetron Inj 2 Mg/Ml Inj 2 Ml) 4 mg IV X1 ONE; Protocol Stop: 05/26/24 01:11 Last Admin: 05/26/24 01:38 Dose: 4 mg Assessment & Plan Plan 49-year-old female past medical history of insulin-dependent diabetes, hypertension, kidney cancer status post nephrectomy, diabetic foot ulcer status post amputations presented to the ER after her dialysis catheter became dislodged. #Dialysis catheter insertion Patient had dislodgment of her previous dialysis catheter She has HD M/W/F and is due for dialysis today Electrolytes were stable except for a Chloride of 110 and magnesium of 2.8 There is no signs of fluid overload at this time Plan: -IR guided dialysis catheter insertion - Will receive her session of dialysis and then Discharge home Other problems: #Hyptertension, diabetes, dyslipidemia, peripheral vascular disease Patient BP was in the 190s SBP Received 20mg total of Hydralazine IV in the ER as well as clonidine 0.1mg PO x1 I discussed patient's care with attending physician, Dr Merly Rocha PGY3 Attending Provider Attestation/Addendum Patient seen and examined with resident physician Dr. Rocha. Note reviewed, agree with findings and recommendations. Patient came with dislodged dialysis catheter. IR placed IJ dialysis catheter. Patient currently seen on dialysis. Tolerating dialysis without any problems. Hemodialysis for 3 hours, 2K, ultrafiltration 2-3 L, Epogen 6000, no heparin ordered. Plan of care discussed with the dialysis nurse. Please see dialysis flowsheet for further details. Thank you Dr. Serrano for allowing me to participate in the care of Ms. Costa
[2024-05-26] MEDS: cloNIDine HCL 0.1 MG TABLET PO (09:09)
--- NOTE | 2024-05-26 09:56 | PC.NURSE ---
NURSE FROM IR CALLED FOR REPORT AND THEODORE CHECK WITH IR RN FOR WHEN PROCEDURE WILL BE DONE
--- NOTE | 2024-05-26 10:33 | PC.NURSE ---
pt was picked up by radiology
[2024-05-26] MEDS: fentaNYL CIT INJ 50 mCg/ML AMP 2ML 75 MCG IVP (12:12)
[2024-05-26] MEDS: HEPARIN SOD LOCK SYR 100 UNIT/ML 500 UNIT STFIELD (12:13)
[2024-05-26] MEDS: HEPARIN SOD INJ 1000 UNIT/ML VIAL 3500 UNIT INDWELLCAT (12:55)
--- NOTE | 2024-05-26 13:15 | PC.NURSE ---
1315 patient is awake, alert, breathing unlabored, s/p tunneled hemodialysis catheter to left IJ, dressing dry with no active bleeding, patient transferred back to ER 12, bedside report given to Steven ESTRADA.
--- NOTE | 2024-05-26 13:20 | PC.NURSE ---
pt back from ir in xray and dr. freeman informed
[2024-05-26] MEDS: LIDOCAINE INJ PF 1% 30 ML VIAL 10 ML INFL (13:31)
--- NOTE | 2024-05-26 13:41 | PC.NURSE ---
Received report from Marry ESTRADA from [employer] after left Perm Cath placement. RN states dialysis catheter can be used /accessed.
--- NOTE | 2024-05-26 14:40 | PC.NURSE ---
pt eating a sandwich and juice.
--- NOTE | 2024-05-26 15:35 | PC.NURSE ---
PATIENT WAS TAKEN UP TO DIALYSIS.
--- NOTE | 2024-05-26 15:47 | PC.CC ---
ASWYamini was consulted by SEAN Mckee regarding transportation for the patient back home. ASW unable to confirm address with patient as patient was taken to dialysis and RN wanted transportation arranged for 3 hours. ASW arranged transportation with [facility] reservation [phone].
--- NOTE | 2024-05-26 16:47 | PC.SS ---
SS met with patient to confirm home address, provided to be [address] [place] [address]. [place] [id number]. Informs her brother Steven to receive her at home; contact number .
--- NOTE | 2024-05-26 19:11 | PC.NURSE ---
back from dialysis. 2L of fluid removed
== END 2024-05-26 19:31 | disposition home or self-care (01) ==
PROVIDERS: Emergency Provider Emergency Medicine; PCP Family Medicine
DX: T82.41XA Breakdown (mechanical) of vascular dialysis catheter, initial encounter (principal); Y84.1 Kidney dialysis as the cause of abnormal reaction of the patient, or of later complication, without mention of misadventure at the time of the procedure; E11.9 Type 2 diabetes mellitus without complications; I10 Essential (primary) hypertension; Z99.2 Dependence on renal dialysis
CPT/HCPCS: 36558; 36415; 71101; 76937; 77001; 80053; 80069; 83690; 83735; 85025; 85610; 85730; 90935; 93005; 96365; 96366; 96375; 99285; C1750; C1894; J0131; J0360; J1642; J1643; J2405; J3010; J3490; J7050; A9270; G0257

== ENCOUNTER 2024-06-21 16:13 | Emergency (ER) | payer MEDICAID, SELFPAY ==
[2024-06-21] VITALS (9 sets, daily range): BP systolic 105–231; BP diastolic 75–106; PULSE 52–75; RESP 16–18; TEMP 36.4–37.1; O2SAT 97–100; BMI 29.9
--- NOTE | 2024-06-21 16:27 | EDNOTE_ITS ---
ED Weakness RME/HPI General Chief complaint: Weakness Stated complaint: GENERAL WEAKNESS Time Seen by Provider: 06/21/24 16:21 Arrival date/time: 06/21/24 16:13 RME / HPI RME / HPI Narrative: DR. BOURGEOIS MAIN ED EVALUATION: 49 year old female presents to the Emergency Department [facility] from dialysis with complaints of generalized weakness and light-headedness. Patient became weak and hypotensive and dialysis had to be stopped, usually gets 3.5-4 hours and today she was able to get 2.5 hours only. No other symptoms reported. At 1743 hours, patient reports bilateral knee pain. She states at dialysis she went to the restroom and fell on her knees, bilateral knee bruises. No broken bones. Also reports now a mild headache. No abdominal pain or black stools. No vision changes. PMHx: Insulin-dependent type 2 diabetes mellitus, hypertension, kidney cancer status post partial nephrectomy, and right foot osteomyelitis s/p debridement and partial amputations. Social Hx: No tobacco, alcohol, or substance use. Related Data Home Medications ?Medication ?Instructions ?Recorded ?Confirmed gabapentin 600 mg tablet 1,200 mg PO TID 06/16/2007/17 Previous Rx's ?Medication ?Instructions ?Recorded insulin syringe-needle U-100 1 mL #100 ea 02/22/20 28 gauge x 1/2 (BD Insulin Syringe) hydroxyzine HCl 25 mg tablet 25 mg PO HS PRN insom #30 tabs 06/06/23 blood pressure monitor (Blood #1 ea 06/28/23 Pressure Kit) flash glucose scanning reader #1 ea 01/13/24 (FreeStyle Zoey 2 [place]) flash glucose sensor (FreeStyle #1 ea 01/13/24 Zoey 2 Sensor kit) insulin glargine 100 unit/mL (3 10 unit (0.1 mL) subcu t QPM #15 mL 01/13/24 mL) subcutaneous pen insulin glargine 100 unit/mL 10 unit (0.1 mL) subcut Q PM #10 mL 01/13/24 subcutaneous solution acetaminophen 300 mg-codeine 30 mg 1 tab PO Q12H PRN p ain #14 tabs 03/04/24 tablet ibuprofen 800 mg tablet 800 mg PO TID PRN pain #20 t abs 03/04/24 Allergies Allergy/AdvReac Type Severity Reaction Status Date / Time No Known Allergies Allergy Unverified 03/11/24 16:26 Review of Systems Review of Systems Systems Reviewed: All systems reviewed, normal except as documented Past Medical History Past Medical History CARDIAC: Positive Heart Murmur and Hypertension RESPIRATORY: Positive Asthma GASTROINTESTINAL: Positive Obesity GENITOURINARY: Positive Renal Disease and Dialysis REPRODUCTIVE: Positive Previous Pregnancies MUSCULOSKELETAL: Positive Arthritis and Osteomyelitis ENT: Positive Blind ENDOCRINE: Positive Endocrine Disorders and Diabetes Mellitus Type 2 PSYCHO/SOCIAL: Positive Bipolar Disorder, Depression and Anxiety OTHER HISTORY: Positive Hospitalization, Falls, Chicken Pox and Cancer (KIDNEY CA PARTIAL RT NEPHECTOMY) Family History FAMILY HISTORY: Positive Family Cancer Surgical History SURGICAL: Positive Abdominal Surgery, Amputation and Section Social History SMOKING STATUS: Current every day smoker SECOND HAND EXPOSURE: No SUBSTANCE USE: does not use ALCOHOL: Never ED Exam Narrative Physical exam: GENERAL APPEARANCE: alert and oriented x 4, well-developed, well-nourished, no acute distress, morbidly obese VITALS: All vitals were reviewed and the pulse ox is 97% on room air, which is normal according to my interpretation. HEENT: Normocephalic, atraumatic; pupils equal, round, reactive to light; EOMI; mucous membranes pink, moist; oropharynx clear NECK: Supple LUNGS: CTABL; no wheezes, no rales, no rhonchi HEART: Regular rate, regular rhythm; normal S1, S2; no murmurs ABDOMEN: non distended; normal BS; soft, no tenderness, no guarding, no rebound; no masses, no organomegaly, no hernia BACK: no CVA tenderness EXTREMITIES: atraumatic; no edema NEUROLOGIC: awake; alert and oriented x4; cranial nerves II-XII grossly intact; no focal sensory or motor deficits PSYCHIATRIC: appropriate mood and affect SKIN: warm, dry, normal color; no rashes Course Quality Measures none Orders Category Date Time Status Infection Prevention Practitioner NOW Care 06/21/24 16:42 Active EKG (ED ONLY) *Do not use* NOW Care 06/21/24 16:30 Completed EKG (ED Only) Stat Exams 06/21/24 16:30 Draft XR chest 1V portable Stat Exams 06/21/24 16:42 Completed B-Type Natriuretic Peptide Stat Lab 06/21/24 16:54 Completed CBC Stat Lab 06/21/24 16:54 Completed Comprehensive Metabolic Panel Stat Lab 06/21/24 16:54 Received Lipase Stat Lab 06/21/24 16:54 Received Magnesium Stat Lab 06/21/24 16:54 Received Partial Thromboplastin Time Stat Lab 06/21/24 16:54 Completed Prothrombin Time with INR Stat Lab 06/21/24 16:54 Completed Troponin I Stat Lab 06/21/24 16:54 Received HYDROcodone*/APAP 5/325 [[place] 5/325] Med 06/21/24 17:20 Discontinued 1 tab PO X1 ONE Meclizine HCl [Antivert] Med 06/21/24 17:44 Discontinued 25 mg PO X1 ONE hydrALAZINE INJ [Apresoline Inj] Med 06/21/24 17:43 Discontinued 10 mg IV X1 ONE hydrALAZINE INJ [Apresoline Inj] Med 06/21/24 17:47 Discontinued 10 mg IV X1 ONE Reevaluation(s) Reevaluation #1: Patient reports bilateral knee pain. She states at dialysis she went to the restroom and fell on her knees, bilateral knee bruises. No broken bones. Also reports now a mild headache. No abdominal pain or black stools. No vision changes. Time: 17:43 Vital Signs Vital signs: Vital Signs Temperature 97.6 F 06/21/24 16:17 Pulse Rate 60 06/21/24 16:17 Respiratory Rate 18 06/21/24 16:17 Blood Pressure 105/75 06/21/24 16:17 Pulse Oximetry (%) 97 06/21/24 16:17 Oxygen Delivery Method Room Air 06/21/24 16:17 Weakness MDM Narrative MDM Narrative:: IErica am scribing for and in the presence of Dr. Bourgeois. Patient data External records reviewed:: EMS form Clinical information provided by:: patient and EMS Social determinants that could affect healthcare access:: none Patient has the following chronic illnesses:: Insulin-dependent type 2 diabetes mellitus, hypertension, kidney cancer status post partial nephrectomy, and right foot osteomyelitis s/p debridement and partial amputations. How is presenting disease/condition affected by chronic disease/condition?: exacerbated by Evaluation data The following diagnostics were reviewed and interpreted by me:: lab results, radiology exam(s) and EKG tracing(s) (EKG#1: EKG at 1635 hours. Interpreted by me: sinus bradycardia, rate 56, Q waves in V1 and V2) Lab and/or radiology exams considered but not ordered:: none Interpretation Summary: Procedure(s): XR chest 1V portable Accession Number(s): [id number] cc: Santiago Saldivar MD; Christian Cooper MD; Miley Bourgeois MD~ Examination: AP chest single view Technique one AP portable semiupright chest single view Standing time: June 21, 2024, 1706 hours Comparison May 26, 2024 INDICATIONS: Chest pain shortness of breath today FINDINGS: Mild prominence cardiac contour Left internal jugular dialysis catheter tips SVC satisfactory position No lobar pneumonia or pulmonary edema Moderate osteopenia IMPRESSION: No lumbar pneumonia or pulmonary edema Dictated By: Christian Cooper MD Medications / Prescriptions Medications or Prescriptions considered but not ordered:: none Medication administrations:: Medication Administration History Discontinued Medications Hydrocodone Bitart/Acetaminophen (Hydrocodone/Apap 5/325 Tablet) 1 tab PO X1 ONE Stop: 06/21/24 17:21 Last Admin: 06/21/24 17:25 Dose: 1 tab Documented By: MAYCO Hydralazine HCl (Hydralazine Inj 20 Mg/Ml Vial) 10 mg IV X1 ONE Stop: 06/21/24 17:44 Hydralazine HCl (Hydralazine Inj 20 Mg/Ml Vial) 10 mg IV X1 ONE Stop: 06/21/24 17:48 Meclizine HCl (Meclizine Hcl 25 Mg Tablet) 25 mg PO X1 ONE Stop: 06/21/24 17:45 see above if any Consultations Consultation(s) initiated? (list below): No Diagnosis Weakness Differential Diagnosis: sepsis, dehydration and other (electrolyte imbalance) Most likely diagnosis given after review of the tests above:: Generalized weakness Hypertensive urgency Knee contusion Admission Indicated Admission indicated?: not indicated Admission Request Was there a request for admission?: No Disposition Plan Disposition Plan: Discharge Discharge Attestation Discharge Attestation: The patient and all family members were given an opportunity to ask questions and understood the discharge instructions. Discharge instructions specifically effects, indications for sooner follow up or return to the emergency department, and the expected course of current diagnosis. Patient condition: Stable Discharge Plan Plan Patient Disposition: HOME (Self Care) Prescriptions/Referrals Prescriptions/Med Rec: No Action gabapentin 600 mg Tablet 1,200 mg PO TID (DME) insulin syringe-needle U-100 [BD Insulin Syringe] 1 mL 28 gauge x 1/2 syringe See Rx Instructions .ROUTE .MEDSUPPLY Qty: 100 0RF Rx Instructions: As directed (DME) FreeStyle Zoey 2 [place] Misc See Rx Instructions .Route Qty: 1 2RF Rx Instructions: As directed; once daily insulin glargine 100 unit/mL solution 10 unit subcut QPM Qty: 10 4RF insulin glargine 100 unit/mL (3 mL) insulin pen 10 unit subcut QPM Qty: 15 4RF (DME) FreeStyle Zoey 2 Sensor Kit See Rx Instructions .Route Qty: 1 3RF Rx Instructions: As directed once daily ibuprofen 800 mg tablet 800 mg PO TID PRN (Reason: pain) Qty: 20 0RF acetaminophen-codeine 300-30 mg tablet 1 tab PO Q12H PRN (Reason: pain) Qty: 14 0RF hydroxyzine HCl 25 mg tablet 25 mg PO HS PRN (Reason: insom) Qty: 30 0RF (DME) blood pressure monitor [Blood Pressure Kit] Kit See Rx Instructions .Route Qty: 1 0RF Rx Instructions: As directed Referrals: Santiago Saldivar MD [Primary Care Provider] - In 1 week Problem List Clinical Impression: Generalized weakness, Hypertensive urgency, Knee contusion Patient/Caregiver Discharge Instructions Education Materials: ED Contusion, Lower Extremity, ED Weakness (Uncertain Cause) Print Language: Welsh Stand Alone Forms: Monik Award Info., Patient Portal Info Letter
--- NOTE | 2024-06-21 16:30 | EKG_ITS ---
[facility] Test Date: 2024-06-21 Pat Name: ARVIN FUNEZ Department: Room: - Gender: Female Check Writer: : 1975 Requested By: Miley De La Garza Order Number: [id number] Reading MD: Miley De La Garza Measurements Intervals Dierks Rate: 56 P: 37 MD: 119 QRS: 52 QRSD: 74 T: 97 QT: 470 QTc: 457 Interpretive Statements SINUS BRADYCARDIA WITH SHORT MD INTERVAL LOW QRS VOLTAGE IN PRECORDIAL LEADS [QRS DEFLECTION < 1.0 mV IN CHEST LEADS] SEPTAL MYOCARDIAL INFARCTION , OF INDETERMINATE AGE [40+ ms Q WAVE IN V1/V2] Compared to ECG 05/26/2024 01:48:14 Short MD interval now present Low QRS voltage now present Myocardial infarct finding now present Sinus rhythm no longer present T-wave abnormality no longer present /store/S0/[id number]/ecg/[id number].pdf
--- NOTE | 2024-06-21 16:42 | XR_ITS ---
Examination: AP chest single view Technique one AP portable semiupright chest single view Standing time: June 21, 2024, 1706 hours Comparison May 26, 2024 INDICATIONS: Chest pain shortness of breath today FINDINGS: Mild prominence cardiac contour Left internal jugular dialysis catheter tips SVC satisfactory position No lobar pneumonia or pulmonary edema Moderate osteopenia IMPRESSION: No lumbar pneumonia or pulmonary edema
[2024-06-21 17:21] LABS: Basophils # (Auto) 0.1 Thou/mm3 (0.0-0.2); Basophils % (Auto) 1 % (0-2.5); Eosinophils # (Auto) 0.2 Thou/mm3 (0.0-0.5); Eosinophils % (Auto) 3 % (0-10); Hematocrit 41.8 % (36.0-46.0); Hemoglobin 13.5 g/dL (12.0-16.0); Immature Granulocytes % (Auto) 1 % (0-0); Immature Granulocytes Auto 0.06 Thou/mm3 (0.00-0.00); Lymphocytes % (Auto) 15 % (10-50); Mean Corpuscular HGB Conc 32.3 g/dl (31.0-37.0); Mean Corpuscular Hemoglobin 29.1 pg (25.0-35.0); Mean Corpuscular Volume 90 fL (80-100); Monocytes # (Auto) 0.3 Thou/mm3 (0.0-0.8); Monocytes % (Auto) 5 % (0-12); Neutrophils # (Auto) 5.1 Thou/mm3 (1.8-7.7); Neutrophils % (Auto) 75 % (37-80); Nucleated Red Blood Cell % 0 /100 WBC (0); Platelet Count 287 Thou/mm3 (140-440); RDW Standard Deviation 48.9 fL (36.4-46.3); Red Blood Count 4.64 Miln/mm3 (4.00-5.20); White Blood Count 6.8 Thou/mm3 (3.6-11.0)
[2024-06-21] MEDS: HYDROcodone/APAP 5/325 TABLET 1 TAB PO (17:25)
[2024-06-21 17:36] LABS: Partial Thromboplastin Time 26.5 Seconds (22.0-36.0); Prothrombin Time 10.5 Seconds (9.0-12.2)
[2024-06-21 17:38] LABS: B-Type Natriuretic Peptide 216 pg/mL (0-100)
[2024-06-21] MEDS: MECLIZINE HCL 25 MG TABLET PO (18:01)
[2024-06-21] MEDS: hydrALAZINE INJ 20 MG/ML VIAL 10 MG IV ×2 (18:02→19:09)
[2024-06-21 18:25] LABS: Alanine Aminotransferase 36 U/L (10-49); Albumin, Serum 3.8 gm/dL (3.5-5.0); Albumin/Globulin Ratio 1.2 (1.2-2.2); Alkaline Phosphatase 220 U/L (46-116); Anion Gap 8 (7-16); Aspartate Amino Transferase 36 U/L (0-34); BUN/Creatinine Ratio 8 Ratio (12-20); Bilirubin,Total 0.4 mg/dL (0.3-1.2); Blood Urea Nitrogen 38 mg/dL (9-23); Calcium 8.7 mg/dL (8.3-10.6); Calcium (Corrected) 8.9 mg/dL (8.5-10.1); Carbon Dioxide 29.2 mMol/L (20.0-31.0); Chloride 100 mMol/L (98-107); Creatinine (Component) 4.9 mg/dL (0.6-1.3); Estimated Creatinine Clearance 14.3 mL/min (>60); Globulin 3.3 gm/dL (2.3-3.5); Glucose 258 mg/dL (74-106); Lipase 29 U/L (12-53); Magnesium 2.3 mg/dL (1.6-2.6); Osmolality,Calculated 291 (275-295); Potassium 4.2 mMol/L (3.4-5.1); Sodium 137 mMol/L (136-145); Total Protein 7.1 gm/dL (5.7-8.2); eGFR 10 See Note
[2024-06-21 18:40] LABS: Troponin I < 0.020 ng/mL (0.0-0.045)
--- NOTE | 2024-06-21 19:09 | PC.NURSE ---
CALLED THIS PT BROTHER (LAURA) TO SEE IF HE CAN RISK CONTROL DIRECTOR THIS PT, BUT NO ANSWER. VOICE MESSAGE WAS LEFT.
--- NOTE | 2024-06-21 20:40 | PD.EDWEAK ---
ED Weakness RME/HPI General Chief complaint: Weakness Stated complaint: GENERAL WEAKNESS Time Seen by Provider: 06/21/24 16:21 Source: patient and family Arrival date/time: 06/21/24 16:13 Mode of arrival: ambulatory Limitations: no limitations RME / HPI RME / HPI Narrative: DR. REBOLLEDO MAIN ED EVALUATION: 49 year old female presents to the Emergency Department [facility] from dialysis with complaints of generalized weakness and light-headedness. Patient became weak and hypotensive and dialysis had to be stopped, usually gets 3.5-4 hours and today she was able to get 2.5 hours only. No other symptoms reported. At 1743 hours, patient reports bilateral knee pain. She states at dialysis she went to the restroom and fell on her knees, bilateral knee bruises. No broken bones. Also reports now a mild headache. No abdominal pain or black stools. No vision changes. PMHx: Insulin-dependent type 2 diabetes mellitus, hypertension, kidney cancer status post partial nephrectomy, and right foot osteomyelitis s/p debridement and partial amputations. Social Hx: No tobacco, alcohol, or substance use. Related Data Home Medications ?Medication ?Instructions ?Recorded ?Confirmed gabapentin 600 mg tablet 1,200 mg PO TID 06/16/20 12/30/23 Previous Rx's ?Medication ?Instructions ?Recorded insulin syringe-needle U-100 1 mL #100 ea 02/22/20 28 gauge x 1/2 (BD Insulin Syringe) hydroxyzine HCl 25 mg tablet 25 mg PO HS PRN insom #30 tabs 06/06/23 blood pressure monitor (Blood #1 ea 06/28/23 Pressure Kit) flash glucose scanning reader #1 ea 01/13/24 (FreeStyle Zoey 2 [place]) flash glucose sensor (FreeStyle #1 ea 01/13/24 Zoey 2 Sensor kit) insulin glargine 100 unit/mL (3 10 unit (0.1 mL) subcut QPM #15 mL 01/13/24 mL) subcutaneous pen insulin glargine 100 unit/mL 10 unit (0.1 mL) subcut QPM #10 mL 01/13/24 subcutaneous solution acetaminophen 300 mg-codeine 30 mg 1 tab PO Q12H PRN pain #14 tabs 03/04/24 tablet ibuprofen 800 mg tablet 800 mg PO TID PRN pain #20 tabs 03/04/24 Allergies Allergy/AdvReac Type Severity Reaction Status Date / Time No Known Allergies Allergy Unverified 03/11/24 16:26 ED Exam General Limitations: Present no limitations Course Orders Category Date Time Status Crumb Packer NOW Care 06/21/24 16:42 Active EKG (ED ONLY) *Do not use* NOW Care 06/21/24 16:30 Completed EKG (ED Only) Stat Exams 06/21/24 16:30 Draft XR cervical spine 2-3V Stat Exams 06/21/24 20:37 Ordered XR chest 1V portable Stat Exams 06/21/24 16:42 Completed XR lumbar spine bend only 2-3V Stat Exams 06/21/24 20:37 Ordered B-Type Natriuretic Peptide Stat Lab 06/21/24 16:54 Completed CBC Stat Lab 06/21/24 16:54 Completed Comprehensive Metabolic Panel Stat Lab 06/21/24 16:54 Completed Lipase Stat Lab 06/21/24 16:54 Completed Magnesium Stat Lab 06/21/24 16:54 Completed Partial Thromboplastin Time Stat Lab 06/21/24 16:54 Completed Prothrombin Time with INR Stat Lab 06/21/24 16:54 Completed Troponin I Stat Lab 06/21/24 16:54 Completed HYDROcodone*/APAP 5/325 [[place] 5/325] Med 06/21/24 17:20 Discontinued 1 tab PO X1 ONE Ketorolac Inj [Toradol Inj] Med 06/21/24 20:37 Once 30 mg IM X1 ONE Meclizine HCl [Antivert] Med 06/21/24 17:44 Discontinued 25 mg PO X1 ONE hydrALAZINE INJ [Apresoline Inj] Med 06/21/24 17:43 Discontinued 10 mg IV X1 ONE hydrALAZINE INJ [Apresoline Inj] Med 06/21/24 17:47 Discontinued 10 mg IV X1 ONE Vital Signs Vital signs: Vital Signs Temperature 97.6 F 06/21/24 16:17 Pulse Rate 60 06/21/24 16:17 Respiratory Rate 18 06/21/24 16:17 Blood Pressure 105/75 06/21/24 16:17 Pulse Oximetry (%) 97 06/21/24 16:17 Oxygen Delivery Method Room Air 06/21/24 16:17 Weakness Medications / Prescriptions Medication administrations:: Medication Administration History Ketorolac Tromethamine (Ketorolac Inj 60 Mg/2 Ml Vial) 30 mg IM X1 ONE Stop: 06/21/24 20:38 Discontinued Medications Hydrocodone Bitart/Acetaminophen (Hydrocodone/Apap 5/325 Tablet) 1 tab PO X1 ONE Stop: 06/21/24 17:21 Last Admin: 06/21/24 17:25 Dose: 1 tab Documented By: MAYCO Hydralazine HCl (Hydralazine Inj 20 Mg/Ml Vial) 10 mg IV X1 ONE Stop: 06/21/24 17:44 Last Admin: 06/21/24 18:02 Dose: 10 mg Documented By: DB Hydralazine HCl (Hydralazine Inj 20 Mg/Ml Vial) 10 mg IV X1 ONE Stop: 06/21/24 17:48 Last Admin: 06/21/24 19:09 Dose: 10 mg Documented By: JACLYN Meclizine HCl (Meclizine Hcl 25 Mg Tablet) 25 mg PO X1 ONE Stop: 06/21/24 17:45 Last Admin: 06/21/24 18:01 Dose: 25 mg Documented By: MAYCO Discharge Plan Plan Patient Disposition: HOME (Self Care) Prescriptions/Referrals Prescriptions/Med Rec: No Action gabapentin 600 mg Tablet 1,200 mg PO TID (DME) insulin syringe-needle U-100 [BD Insulin Syringe] 1 mL 28 gauge x 1/2 syringe See Rx Instructions .ROUTE .MEDSUPPLY Qty: 100 0RF Rx Instructions: As directed (DME) FreeStyle Zoey 2 [place] Misc See Rx Instructions .Route Qty: 1 2RF Rx Instructions: As directed; once daily insulin glargine 100 unit/mL solution 10 unit subcut QPM Qty: 10 4RF insulin glargine 100 unit/mL (3 mL) insulin pen 10 unit subcut QPM Qty: 15 4RF (DME) FreeStyle Zoey 2 Sensor Kit See Rx Instructions .Route Qty: 1 3RF Rx Instructions: As directed once daily ibuprofen 800 mg tablet 800 mg PO TID PRN (Reason: pain) Qty: 20 0RF acetaminophen-codeine 300-30 mg tablet 1 tab PO Q12H PRN (Reason: pain) Qty: 14 0RF hydroxyzine HCl 25 mg tablet 25 mg PO HS PRN (Reason: insom) Qty: 30 0RF (DME) blood pressure monitor [Blood Pressure Kit] Kit See Rx Instructions .Route Qty: 1 0RF Rx Instructions: As directed Referrals: Santiago Saldivar MD [Primary Care Provider] - In 1 week Problem List Clinical Impression: Generalized weakness, Hypertensive urgency, Knee contusion Patient/Caregiver Discharge Instructions Education Materials: ED Contusion, Lower Extremity, ED Weakness (Uncertain Cause) Print Language: Cypriot Stand Alone Forms: Monik Award Info., Patient Portal Info Letter
[2024-06-21] MEDS: cloNIDine HCL 0.1 MG TABLET 0.2 MG PO (21:41)
== END 2024-06-21 21:51 | disposition home or self-care (01) ==
PROVIDERS: Emergency Provider Emergency Medicine; PCP Family Medicine
DX: I16.0 Hypertensive urgency (principal); R53.1 Weakness; S80.02XA Contusion of left knee, initial encounter; S80.01XA Contusion of right knee, initial encounter; I10 Essential (primary) hypertension; E11.9 Type 2 diabetes mellitus without complications; R06.02 Shortness of breath; R00.1 Bradycardia, unspecified; W18.39XA Other fall on same level, initial encounter; Y92.531 Health care provider office as the place of occurrence of the external cause; Z79.4 Long term (current) use of insulin; Z90.5 Acquired absence of kidney; Z85.528 Personal history of other malignant neoplasm of kidney; Z99.2 Dependence on renal dialysis
CPT/HCPCS: 36415; 71045; 80053; 83690; 83735; 83880; 84484; 85025; 85610; 85730; 93005; 99284; J0360; A9270

== ENCOUNTER 2024-07-05 12:41 | Emergency (ER) | payer MEDICAID, SELFPAY ==
[2024-07-05 12:48] VITALS: BP 188/98; PULSE 73; RESP 20; TEMP 36.7; O2SAT 100; BMI 34.9
--- NOTE | 2024-07-05 12:52 | XR_ITS ---
Examination: CT abdomen and pelvis without contrast. Coronal 3-D reconstructions. Sagittal 2-D reconstructions. Date and time of exam:July 05, 2024 1633 hours Comparison June 20, 2020 INDICATIONS: Right abdominal pain and nausea today CTDI: vol (mGy): 15 DLP: (mGycm): 920 Technique: Axial images of the abdomen have been obtained, 3 mm slice thickness Intravenous contrast material has not been administered. Low dose protocols were performed. One or more of the following dose reduction techniques were used; automated exposure control, adjustment of the mA and/or KV according to patient size, use of iterative reconstruction technique. Findings: 4 splenic lesions Absent gallbladder 3 cm left adrenal mass again noted Perinephric stranding Partial right nephrectomy No hydronephrosis 12 mm fat-containing a buckle hernia Right lateral abdominal wall hernia defect 3.7 cm containing fat No periappendiceal inflammatory changes Colonic diverticulosis, no diverticulitis Urinary bladder wall thickening up to 4 mm Moderate osteopenia IMPRESSION: Stable 3 cm left adrenal mass Right lateral abdominal wall hernia defect 3.7 cm containing fat No CT findings of appendicitis Urinary tract infection pattern with cystitis
--- NOTE | 2024-07-05 12:52 | XR_ITS ---
Examination: AP chest single view Technique one AP portable upright chest single view Date and time: July 05, 2024 1306 hours Comparison June 13, 2024 INDICATIONS: Chest pain today FINDINGS: Normal heart size Left internal jugular dialysis catheter tips SVC satisfactory position No interval pneumonia or pulmonary edema IMPRESSION: No interval pneumonia or pulmonary edema
--- NOTE | 2024-07-05 12:53 | EKG_ITS ---
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
--- NOTE | 2024-07-05 12:53 | EDNOTE_ITS ---
ED General RME/HPI General Chief complaint: Abdominal Pain Stated complaint: ABD PAIN RADIATE FLANK/BACK, WEAKNESS, NAUSEA, SOB Time Seen by Provider: 07/05/24 12:52 Arrival date/time: 07/05/24 12:41 CC: Right lower quadrant abdominal pain with flulike symptoms HPI patient is a dialysis patient dialyzed Friday skip dialysis today secondary to feeling fatigue and difficulty getting up today secondary to weakness with the persistent abdominal pain it has been there for the last 4 days with p rogressive increase in severity. 1 episode of vomiting without emesis. Patient's marketing development representative is Dr. Moreland, PCP is a [facility]. Patient denies any chest pain or shortness of breath at this time. EMS reports stable vital signs throughout the transport. Note the patient is legally blind. Related Data Home Medications ?Medication ?Instructions ?Recorded ?Confirmed gabapentin 600 mg tablet 1,200 mg PO TID 06/16/2007/17 Previous Rx's ?Medication ?Instructions ?Recorded insulin syringe-needle U-100 1 mL #100 ea 02/22/20 28 gauge x 1/2 (BD Insulin Syringe) hydroxyzine HCl 25 mg tablet 25 mg PO HS PRN insom #30 tabs 06/06/23 blood pressure monitor (Blood #1 ea 06/28/23 Pressure Kit) flash glucose scanning reader #1 ea 01/13/24 (FreeStyle Zoey 2 [place]) flash glucose sensor (FreeStyle #1 ea 01/13/24 Zoey 2 Sensor kit) insulin glargine 100 unit/mL (3 10 unit (0.1 mL) subcu t QPM #15 mL 01/13/24 mL) subcutaneous pen insulin glargine 100 unit/mL 10 unit (0.1 mL) subcut Q PM #10 mL 01/13/24 subcutaneous solution acetaminophen 300 mg-codeine 30 mg 1 tab PO Q12H PRN p ain #14 tabs 03/04/24 tablet ibuprofen 800 mg tablet 800 mg PO TID PRN pain #20 t abs 03/04/24 Allergies Allergy/AdvReac Type Severity Reaction Status Date / Time No Known Allergies Allergy Unverified 03/11/24 16:26 Review of Systems Review of Systems Narrative Review of Systems: GEN: No fever, no chills, no weight loss EYES: No discharge, no visual changes, no pain HEENT: No ear pain, no congestion, no sore throat PULM: No shortness of breath, no cough, no congestion CV: No chest pain, no dyspnea on exertion, no palpitations GI: No nausea, no vomiting, no diarrhea, + pain, no constipation : No frequency, no urgency, no dysuria MUSC/SKEL: No joint pain, no back pain SKIN: No rash PSYCH: No hallucinations, no depression HEME/LYMPH: No easy bleeding or bruising tendencies NEURO: No weakness, no headache Past Medical History Past Medical History NEUROLOGIC: Negative Neurological Disorders or Seizures CARDIAC: Positive Heart Murmur and Hypertension; Negative Cardiac Disorders or Congestive Heart Failure RESPIRATORY: Positive Asthma; Negative Chronic Obstructive Pulmonary Disease (COPD) GASTROINTESTINAL: Positive Obesity; Negative Gastrointestinal Disorders GENITOURINARY: Positive Renal Disease and Dialysis REPRODUCTIVE: Positive Previous Pregnancies MUSCULOSKELETAL: Positive Arthritis and Osteomyelitis ENT: Positive Blind ENDOCRINE: Positive Endocrine Disorders and Diabetes Mellitus Type 2; Negative Diabetes Mellitus Type 1 HEMATOLOGIC: Negative Sickle Cell Disease PSYCHO/SOCIAL: Positive Bipolar Disorder, Depression and Anxiety OTHER HISTORY: Positive Hospitalization, Falls, Chicken Pox and Cancer (KIDNEY CA PARTIAL RT NEPHECTOMY); Negative Autoimmune Disease, Down Syndrome, Developmental Delay, Shingles, Blood Transfusions, Blood Transfusion Reaction, Anesthesia Reactions or Organ Transplant Family History FAMILY HISTORY: Positive Family Cancer; Negative Family Respiratory Disorders, Family Cardiac Disorders, Family Gastrointestinal Problems, Family Surgery or Family Anesthesia Reaction Surgical History SURGICAL: Positive Abdominal Surgery, Amputation and Section; Negative Cardiac Surgery, Nephrectomy or Organ Transplant Social History SMOKING STATUS: Current every day smoker SECOND HAND EXPOSURE: No SUBSTANCE USE: does not use ED Exam Narrative Physical exam: [General: Obese appears not in any acute distress Head normocephalic HEENT: Eyes: The disconjugate gaze, no tracking note: The patient is blind. Although the subsystems of HEENT are within acceptable limits Neck is supple nontender Chest equal chest rise nontender to palpation Respiratory: Clear to auscultation no wheezes crackles or rubs CV: Rate rhythm is regular no murmurs rubs or clicks Abdomen is distended secondary to body habitus soft, right lower quadrant tenderness with palpation reflexive guarding but no rebound tenderness. Back: No CVA tenderness no spinous process tenderness from cervical spine thoracic and lumbar spine Skin: Left anterior chest catheter site clean dry and intact with a dressing. Otherwise skin is intact no petechiae rash induration ulceration or crepitus Extremities: Moving all extremity against resistance cap refill less than 2 seconds neurosensory intact Neuro: Awake alert oriented x3 Gl[place]ow coma 15 no focal deficits] Course Course Course Narrative: Patient is not in any acute distress. Patient's case laboratory results clinical finding were discussed with Dr. Moreland who states this patient [facility]. She said the patient can call tomorrow to see if she get an appointment. There is no acute finding requires admission. Patient was informed of her this decisions patient states that she has di fficulty getting in [place] when she misses her appointment I informed her she needs to call and get a sliding scale or wait until her next round of dialysis in several days. The patient is afebrile nontoxic-appearing not in any acute distress. Patient has no shortness of breath I feel that she can tolerate missed dialysis until her next scheduled dialysis on Friday. Quality Measures none Orders Category Date Time Status EKG (ED ONLY) *Do not use* NOW Care 07/05/24 12:[address] abdomen pelvis wo con Stat Exams 07/05/24 12:52 Completed EKG (ED Only) Stat Exams 07/05/24 12:53 Draft XR chest 1V Stat Exams 07/05/24 12:52 Completed B-Type Natriuretic Peptide Stat Lab 07/05/24 13:45 Completed CBC Stat Lab 07/05/24 13:45 Completed Comprehensive Metabolic Panel Stat Lab 07/05/24 13:45 Completed Drug Screen,Urine Stat Lab 07/05/24 15:03 Completed HCG Qualitative,Urine Stat Lab 07/05/24 15:03 Completed LDH (Lactate Dehydrogenase) Stat Lab 07/05/24 13:45 Completed Magnesium Stat Lab 07/05/24 13:45 Completed Partial Thromboplastin Time Stat Lab 07/05/24 13:45 Completed Prothrombin Time with INR Stat Lab 07/05/24 13:45 Completed Troponin I Stat Lab 07/05/24 13:45 Completed Urinalysis Stat Lab 07/05/24 15:03 Completed Morphine Inj Med 07/05/24 14:21 Discontinued 4 mg IVP X1 ONE Ondansetron Inj [Zofran Inj] Med 07/05/24 14:21 Discontinued 4 mg IV X1 ONE Vital Signs Vital signs: Vital Signs Temperature 98.1 F 07/05/24 12:48 Pulse Rate 73 07/05/24 12:48 Respiratory Rate 20 07/05/24 12:48 Blood Pressure 188/98 H 07/05/24 12:48 Pulse Oximetry (%) 100 07/05/24 12:48 Oxygen Delivery Method Nasal Cannula 07/05/24 12:48 Oxygen Flow Rate 6 07/05/24 12:48 Discharge Plan Plan Patient Disposition: HOME (Self Care) Patient condition on transfer: Stable Prescriptions/Referrals Prescriptions/Med Rec: No Action gabapentin 600 mg Tablet 1,200 mg PO TID (DME) insulin syringe-needle U-100 [BD Insulin Syringe] 1 mL 28 gauge x 1/2 syringe See Rx Instructions .ROUTE .MEDSUPPLY Qty: 100 0RF Rx Instructions: As directed (DME) FreeStyle Zoey 2 [place] Misc See Rx Instructions .Route Qty: 1 2RF Rx Instructions: As directed; once daily insulin glargine 100 unit/mL solution 10 unit subcut QPM Qty: 10 4RF insulin glargine 100 unit/mL (3 mL) insulin pen 10 unit subcut QPM Qty: 15 4RF (DME) FreeStyle [place] 2 Sensor Kit See Rx Instructions .Route Qty: 1 3RF Rx Instructions: As directed once daily ibuprofen 800 mg tablet 800 mg PO TID PRN (Reason: pain) Qty: 20 0RF acetaminophen-codeine 300-30 mg tablet 1 tab PO Q12H PRN (Reason: pain) Qty: 14 0RF hydroxyzine HCl 25 mg tablet 25 mg PO HS PRN (Reason: insom) Qty: 30 0RF (DME) blood pressure monitor [Blood Pressure Kit] Kit See Rx Instructions .Route Qty: 1 0RF Rx Instructions: As directed Referrals: Lesia Kramer MD [Primary Care Provider] - In 1 week Problem List Clinical Impression: Abdominal hernia, Abdominal pain, right lower quadrant, ESRD (end stage renal disease) on dialysis Patient/Caregiver Discharge Instructions Education Materials: Abdominal Pain, Anemia and Kidney Disease Print Language: Montenegrin Stand Alone Forms: Monik Award Info., Work/School Release, Patient Portal Info Letter PA/SUPERVISOR TUNNEL HEADING Supervising Physician PA/SUPERVISOR TUNNEL HEADING Supervising Physician: Salas ESPARZA Clinical Information Provided by: patient and EMS [facility] Chronic Illness/Social Conditions Explain: ESRD dialysis EKG Interpretation EKG #1: EKG Interpretation: EKG performed at 1311 shows a ventricular rate of 73 [place] interval 152 QRS of 82 QTc 442 sinus rhythm Labs Lab(s) Interpretation(s): CBC shows no leukocytosis H&H of 11 and 33.3 platelet count of 227 Coags within acceptable limits CMP shows a BUN of 54 creatinine of 6.7 note the patient is on dialysis however this is the worst of seen 04. Glucose of 205 calcium of 8.0 no transaminitis or T. bili elevation Troponin is negative BNP is 410. Urine is 3+ protein 3+ glucose RBCs 1+ bacteria no leukocyte Estrace UDS is positive for THC. Chest x-ray showed mild vascular congestion CT of the abdomen shows the patient has an abdominal hernia defect Medication Administration(s) Medication Administration History Discontinued Medications Morphine Sulfate (Morphine Sulf Inj 10 Mg/Ml Vial) 4 mg IVP X1 ONE Stop: 07/05/24 14:22 Last Admin: 07/05/24 14:58 Dose: 4 mg Documented By: ISABELLA Ondansetron HCl (Ondansetron Inj 2 Mg/Ml Inj 2 Ml) 4 mg IV X1 ONE; Protocol Stop: 07/05/24 14:22 Last Admin: 07/05/24 14:58 Dose: 4 mg Documented By: ISABELLA
[2024-07-05 13:08] VITALS: PULSE 88; O2SAT 95; BMI 34.9
[2024-07-05 13:58] LABS: Basophils % (Auto) 0 % (0-2.5); Eosinophils # (Auto) 0.2 Thou/mm3 (0.0-0.5); Eosinophils % (Auto) 3 % (0-10); Hematocrit 33.3 % (36.0-46.0); Immature Granulocytes % (Auto) 1 % (0-0); Lymphocytes # (Auto) 1.1 Thou/mm3 (1.0-4.8); Lymphocytes % (Auto) 12 % (10-50); Mean Corpuscular Hemoglobin 29.4 pg (25.0-35.0); Mean Corpuscular Volume 89 fL (80-100); Monocytes # (Auto) 0.7 Thou/mm3 (0.0-0.8); Monocytes % (Auto) 7 % (0-12); Neutrophils # (Auto) 7.2 Thou/mm3 (1.8-7.7); Neutrophils % (Auto) 77 % (37-80); Nucleated Red Blood Cell % 0 /100 WBC (0); Platelet Count 227 Thou/mm3 (140-440); RDW Standard Deviation 46.9 fL (36.4-46.3); Red Blood Count 3.74 Miln/mm3 (4.00-5.20); White Blood Count 9.3 Thou/mm3 (3.6-11.0)
[2024-07-05 14:11] LABS: Prothrombin Time 10.5 Seconds (9.0-12.2)
[2024-07-05 14:17] LABS: B-Type Natriuretic Peptide 410 pg/mL (0-100)
[2024-07-05 14:19] LABS: Alanine Aminotransferase 16 U/L (10-49); Albumin, Serum 3.5 gm/dL (3.5-5.0); Albumin/Globulin Ratio 1.2 (1.2-2.2); Alkaline Phosphatase 151 U/L (46-116); Anion Gap 10 (7-16); Aspartate Amino Transferase 13 U/L (0-34); BUN/Creatinine Ratio 8 Ratio (12-20); Bilirubin,Total 0.3 mg/dL (0.3-1.2); Blood Urea Nitrogen 54 mg/dL (9-23); Calcium (Corrected) 8.4 mg/dL (8.5-10.1); Carbon Dioxide 26.8 mMol/L (20.0-31.0); Chloride 103 mMol/L (98-107); Creatinine (Component) 6.7 mg/dL (0.6-1.3); Estimated Creatinine Clearance 11.3 mL/min (>60); Globulin 2.9 gm/dL (2.3-3.5); Glucose 205 mg/dL (74-106); LDH (Lactate Dehydrogenase) 215 U/L (120-246); Magnesium 2.1 mg/dL (1.6-2.6); Osmolality,Calculated 300 (275-295); Potassium 3.9 mMol/L (3.4-5.1); Sodium 140 mMol/L (136-145); Total Protein 6.4 gm/dL (5.7-8.2); Troponin I < 0.020 ng/mL (0.0-0.045); eGFR 7 See Note
[2024-07-05] MEDS: ONDANSETRON INJ 2 MG/ML INJ 2 ML 4 MG IV (14:58)
[2024-07-05] MEDS: MORPHINE SULF INJ 10 MG/ML VIAL 4 MG IVP (14:58)
[2024-07-05 15:05] VITALS: BP 179/95; PULSE 67; RESP 18; TEMP 36.2; O2SAT 96
[2024-07-05 15:14] LABS: Collection Type, Urine Clean Catch
[2024-07-05 15:28] LABS: Bacteria,Urine 1+; Bilirubin,Urine Negative (Negative); Blood,Urine Trace (Negative); Clarity,Urine Clear (Clear/Hazy); Color,Urine Lt-Yellow (Lt Yel-Yel); Glucose, Urine 3+ (Negative); Ketones,Urine Negative (Negative); Leukocyte Esterase,Urine Negative (Negative); Nitrite,Urine Negative (Negative); Protein,Urine 3+ (Neg - Trace); RBC,Urine 5 /hpf (0-3); Squamous Epithelial Cell,Urine 3 /hpf (0-5); Urobilinogen,Urine Negative mg/dL (0.0-1.0); WBC,Urine 4 /hpf (0-5)
[2024-07-05 15:40] LABS: Amphetamine/Methamp Scrn,U Negative (Negative); Barbiturate Screen,Urine Negative (Negative); Benzodiazepines Screen,Urine Negative (Negative); Benzoylecgonine Screen, Ur Negative (Negative); Fentanyl Screen,Urine Negative (Negative); Opiate Screen,Urine Negative (Negative); THC Screen,Urine Positive (Negative)
[2024-07-05 15:56] LABS: HCG Qualitative,Urine Negative
[2024-07-05 17:51] VITALS: BP 179/95; PULSE 82; RESP 16; TEMP 37.1; O2SAT 99
== END 2024-07-05 18:19 | disposition home or self-care (01) ==
PROVIDERS: Registered Nurse General Practice; Emergency Provider Family Medicine; PCP Family Medicine
DX: K46.9 Unspecified abdominal hernia without obstruction or gangrene (principal); I12.0 Hypertensive chronic kidney disease with stage 5 chronic kidney disease or end stage renal disease; E11.22 Type 2 diabetes mellitus with diabetic chronic kidney disease; N18.6 End stage renal disease; H54.8 Legal blindness, as defined in USA; R07.9 Chest pain, unspecified; Z99.2 Dependence on renal dialysis
CPT/HCPCS: 36415; 71045; 74176; 80053; 80307; 81001; 81025; 83615; 83735; 83880; 84484; 85025; 85610; 85730; 93005; 96374; 96375; 99284; J2270; J2405

== ENCOUNTER 2024-08-12 18:10 | Emergency (ER) | payer MEDICAID, SELFPAY ==
[2024-08-12 18:18] VITALS: BP 146/85; PULSE 69; RESP 17; TEMP 36.9; O2SAT 95
[2024-08-12 18:35] VITALS: PULSE 70; RESP 16; O2SAT 98
--- NOTE | 2024-08-12 19:53 | XR_ITS ---
Examination: CT abdomen and pelvis without contrast. Coronal 3-D reconstructions. Sagittal 2-D reconstructions. Date and time of exam:08/13/2024 0255 hours INDICATIONS: Onset right flank pain today CTDI: vol (mGy): 15.9 DLP: (mGycm): 947 Technique: Axial images of the abdomen have been obtained, 3 mm slice thickness Intravenous contrast material has not been administered. Low dose protocols were performed. One or more of the following dose reduction techniques were used; automated exposure control, adjustment of the mA and/or KV according to patient size, use of iterative reconstruction technique. Findings: No focal liver or splenic lesions Absent gallbladder No pancreatic mass 3 cm left adrenal mass again noted stable compared to the July 05, 2024 exam Status post partial right nephrectomy No hydronephrosis or ureteral calculi Perinephric stranding Fat-containing defect in the right lateral abdominal wall 28 mm No bowel obstruction Normal appendix Colonic diverticulosis Minimal thickening of urinary bladder wall Moderate osteopenia IMPRESSION: No renal or ureteral calculi, no hydronephrosis Minimal thickening of urinary bladder wall, consider cystitis
--- NOTE | 2024-08-12 19:53 | PD.EDRME ---
Rapid Medical Screening Exam E Arrival date/time: 08/12/24 18:10 49F with history of DM w/ complications, ESRD (MWF; still makes urine), HTN, CHF, and renal cancer s/p partial nephrectomy presents to ED with 2 days of R flank pain. Patient denies dysuria and N/V. Patient states this doesn't feel like her normal pain. Patient also denies fall/trauma, paresthesia, and bowel/bladder incontinence. Chief Complaint: Back Pain/Injury Vital signs: Vital Signs Temperature 98.5 F 08/12/24 18:18 Pulse Rate 69 08/12/24 18:18 Respiratory Rate 17 08/12/24 18:18 Blood Pressure 146/85 H 08/12/24 18:18 Pulse Oximetry (%) 95 08/12/24 18:18 Oxygen Delivery Method Room Air 08/12/24 18:18
[2024-08-12] MEDS: MORPHINE SULF INJ 10 MG/ML VIAL 5 MG IM (20:35)
[2024-08-12 20:42] LABS: Collection Type, Urine Clean Catch
[2024-08-12 21:06] LABS: Bacteria,Urine Rare; Bilirubin,Urine Negative (Negative); Blood,Urine 1+ (Negative); Clarity,Urine Turbid (Clear/Hazy); Color,Urine Yellow (Lt Yel-Yel); Glucose, Urine 4+ (Negative); Hyaline Casts,Urine < 1 /hpf (0-1); Ketones,Urine Negative (Negative); Leukocyte Esterase,Urine Positive (Negative); Nitrite,Urine Negative (Negative); PH,Urine 6.5 (5.0-7.0); Protein,Urine 3+ (Neg - Trace); RBC,Urine 4 /hpf (0-3); Squamous Epithelial Cell,Urine 36 /hpf (0-5); Urobilinogen,Urine Negative mg/dL (0.0-1.0); WBC,Urine 82 /hpf (0-5)
[2024-08-12 21:20] LABS: Basophils # (Auto) 0.1 Thou/mm3 (0.0-0.2); Basophils % (Auto) 1 % (0-2.5); Eosinophils # (Auto) 0.2 Thou/mm3 (0.0-0.5); Eosinophils % (Auto) 2 % (0-10); Hematocrit 39.4 % (36.0-46.0); Immature Granulocytes % (Auto) 1 % (0-0); Immature Granulocytes Auto 0.07 Thou/mm3 (0.00-0.00); Lymphocytes # (Auto) 2.3 Thou/mm3 (1.0-4.8); Lymphocytes % (Auto) 29 % (10-50); Mean Corpuscular Volume 91 fL (80-100); Monocytes # (Auto) 0.6 Thou/mm3 (0.0-0.8); Monocytes % (Auto) 7 % (0-12); Neutrophils # (Auto) 4.8 Thou/mm3 (1.8-7.7); Neutrophils % (Auto) 60 % (37-80); Nucleated Red Blood Cell % 0 /100 WBC (0); Platelet Count 315 Thou/mm3 (140-440); RDW Standard Deviation 50.4 fL (36.4-46.3); Red Blood Count 4.34 Miln/mm3 (4.00-5.20)
[2024-08-12] MEDS: ONDANSETRON ODT 4 MG TABRAP PO (21:31)
[2024-08-12 21:47] LABS: Alanine Aminotransferase 57 U/L (10-49); Albumin, Serum 4.4 gm/dL (3.5-5.0); Albumin/Globulin Ratio 1.3 (1.2-2.2); Alkaline Phosphatase 184 U/L (46-116); Anion Gap 11 (7-16); Aspartate Amino Transferase 84 U/L (0-34); BUN/Creatinine Ratio 5 Ratio (12-20); Bilirubin,Total 0.4 mg/dL (0.3-1.2); Blood Urea Nitrogen 34 mg/dL (9-23); Calcium 9.7 mg/dL (8.3-10.6); Calcium (Corrected) 9.7 mg/dL (8.5-10.1); Carbon Dioxide 26.9 mMol/L (20.0-31.0); Chloride 100 mMol/L (98-107); Creatinine (Component) 6.2 mg/dL (0.6-1.3); Globulin 3.3 gm/dL (2.3-3.5); Glucose 167 mg/dL (74-106); Lipase 36 U/L (12-53); Osmolality,Calculated 287 (275-295); Sodium 138 mMol/L (136-145); Total Protein 7.7 gm/dL (5.7-8.2); eGFR 8 See Note
[2024-08-13 03:30] LABS: HCG,Qualitative Serum Negative
--- NOTE | 2024-08-13 04:13 | PRELIM_ITS ---
CT scan of the abdomen and pelvis without intravenous contrast (axial sections with sagittal and coronal reformats) August 13, 2024 0255 hours Clinical History: R Flank pain Comparison: No prior study is available for comparison. Findings: The evaluation is limited due to motion artifact. The lung bases are clear. The gallbladder is surgically absent. There is a post operative changes at the interpolar region of the right kidney with adjacent fat ischemia Nonspecific perinephric fat stranding is noted bilaterally. The liver, pancreas, spleen and adrenals are unremarkable on this noncontrast study. No evidence of bowel obstruction. A moderate amount of fecal material is present in the colon. A small fat-containing umbilical hernia is present. There is a small fat A small fat-containing right ventral hernia is present. The appendix is within normal limits (coronal images 77-83/172). There is no mesenteric or retroperitoneal adenopathy. The urinary bladder is incompletely distended at the time of the examination and appears mildly thick walled. Calcific densities are seen in the pelvis, likely representing phleboliths. There is no free fluid or free air. Mild degenerative changes are identified in the spine. Impression: No evidence of renal/ureteric calculus or hydroureteronephrosis. Other findings as described above. Report Electronically Signed By: Rios Culver 08/13/2024 4:13:05 AM [EST]
[2024-08-13 04:20] VITALS: BP 210/115; PULSE 68; RESP 21; TEMP 36.9; O2SAT 95
[2024-08-13 04:25] VITALS: BMI 34.9
--- NOTE | 2024-08-13 04:32 | PD.EDABDPN ---
ED Abdominal Pain RME/HPI General Chief Complaint: Back Pain/Injury Stated complaint: BACK PAIN Arrival date/time: 08/12/24 18:10 RME / HPI RME / HPI narrative: 08/12/24 18:10 49F with history of DM w/ complications, ESRD (MWF; still makes urine), HTN, CHF, and renal cancer s/p partial nephrectomy presents to ED with 2 days of R flank pain. Patient denies dysuria and N/V. Patient states this doesn't feel like her normal pain. Patient also denies fall/trauma, paresthesia, and bowel/bladder incontinence. Related Data Home Medications ?Medication ?Instructions ?Recorded ?Confirmed gabapentin 600 mg tablet 1,200 mg PO TID 06/16/20 12/30/23 Previous Rx's ?Medication ?Instructions ?Recorded insulin syringe-needle U-100 1 mL #100 ea 02/22/20 28 gauge x 1/2 (BD Insulin Syringe) hydroxyzine HCl 25 mg tablet 25 mg PO HS PRN insom #30 tabs 06/06/23 blood pressure monitor (Blood #1 ea 06/28/23 Pressure Kit) flash glucose scanning reader #1 ea 01/13/24 (FreeStyle Zoey 2 [place]) flash glucose sensor (FreeStyle #1 ea 01/13/24 Zoey 2 Sensor kit) insulin glargine 100 unit/mL (3 10 unit (0.1 mL) subcut QPM #15 mL 01/13/24 mL) subcutaneous pen insulin glargine 100 unit/mL 10 unit (0.1 mL) subcut QPM #10 mL 01/13/24 subcutaneous solution acetaminophen 300 mg-codeine 30 mg 1 tab PO Q12H PRN pain #14 tabs 03/04/24 tablet ibuprofen 800 mg tablet 800 mg PO TID PRN pain #20 tabs 03/04/24 cephalexin 500 mg capsule 500 mg PO QID 7 days #28 caps 08/13/24 Allergies Allergy/AdvReac Type Severity Reaction Status Date / Time No Known Allergies Allergy Verified 08/12/24 18:40 Course Quality Measures none Orders Category Date Time Status Insert IV NOW Care 08/13/24 04:[address] abdomen pelvis wo con Stat Exams 08/12/24 19:53 Taken CBC Stat Lab 08/12/24 21:09 Completed CMP [Comprehensive Metabolic Panel] Stat Lab 08/12/24 21:09 Completed HCG,Qualitative Serum Stat Lab 08/13/24 02:45 Completed Lipase Stat Lab 08/12/24 21:09 Completed UA [Urinalysis] Stat Lab 08/12/24 20:37 Completed Urine Culture Stat Lab 08/12/24 20:37 Received HYDROmorphone INJ [Dilaudid Inj] Med 08/13/24 04:24 Discontinued 0.5 mg IVP X1 ONE Metoprolol Succinate Xl [Toprol Xl] Med 08/13/24 04:24 Discontinued 25 mg PO X1 ONE Morphine Inj Med 08/12/24 19:53 Discontinued 5 mg IM X1 ONE Ondansetron Inj [Zofran Inj] Med 08/13/24 05:33 Discontinued 4 mg IVP X1 ONE Ondansetron Odt [Zofran Odt] Med 08/12/24 21:21 Discontinued 4 mg PO X1 ONE amLODIPine BESYLATE [Norvasc] Med 08/13/24 04:24 Discontinued 10 mg PO X1 ONE cefTRIAXone [Rocephin] Med 08/13/24 04:34 Discontinued 1,000 mg IV X1 ONE cefTRIAXone/D5w 1gm IV premix [Rocephin/D5w 1gm IV Med 08/13/24 04:59 Discontinued premix] 1 gm in 50 ml IV X1 Vital Signs Vital signs: Vital Signs Temperature 98.5 F 08/12/24 18:18 Pulse Rate 69 08/12/24 18:18 Respiratory Rate 17 08/12/24 18:18 Blood Pressure 146/85 H 08/12/24 18:18 Pulse Oximetry (%) 95 08/12/24 18:18 Oxygen Delivery Method Room Air 08/12/24 18:18 Abdominal Pain MDM MDM Narrative MDM Narrative:: Patient is a 49-year-old female with medical history notable for ESRD, hypertension, anxiety is an emergency room with concerns for right flank pain. Vital signs and exam as above. Prior provider evaluated patient. Ordered labs, CT scan medications for symptom relief. Concern for urinary tract infection, pyelonephritis, urolithiasis. Patient on my evaluation nonseptic nontoxic appearing at this time. Resting comfortably in the gurney. Labs without acute hematologic or metabolic abnormality. EKG without evidence of ischemia arrhythmia. CT abdomen pelvis without contrast notable for postoperative changes at the interpolar region of the right kidney with adjacent fat ischemia. Patient also with nonspecific perinephric fat stranding bilaterally. Patient with constipation. Patient with a small fat-containing umbilical hernia. No evidence of incarceration. Patient also with a fat-containing ventral hernia also no signs of incarceration. No lymphadenopathy. Bladder has thickened wall. Given this concern the patient has pyelonephritis. Will provide patient with antibiotics and discharged home. Is really important that she follow-up with her planning feeder today and coordinate dialysis. Patient without any emergent need for dialysis at this time. I did discuss with patient's planning feeder . Discussed patient presentation, labs and CT. Discussed fat necrosis appreciated at patient's kidney. States that there is nothing emergent to do with regards to the fat necrosis. Patient without any emergent needs for dialysis. Recommends that patient go to her dialysis today and not miss dialysis. On reevaluation, patient no longer nauseated, pain well-controlled, provided patient with her home blood pressure medications. Given that patient is going to dialysis later today will not provide any additional medications for blood pressure control as patient is currently asymptomatic, her blood pressure medications will take some time to take effect and do not want to risk hypotension while dialysis Patient data External records reviewed:: [facility] previous records Clinical information provided by:: patient Social determinants that could affect healthcare access:: none Patient has the following chronic illnesses:: ESRD, hypertension, blindness How is presenting disease/condition affected by chronic disease/condition?: caused by Evaluation data The following diagnostics were reviewed and interpreted by me:: lab results Lab and/or radiology exams considered but not ordered:: None Interpretation Summary: See MDM Medications / Prescriptions Medications or Prescriptions considered but not ordered:: None Medication administrations:: Medication Administration History Discontinued Medications Amlodipine Besylate (Amlodipine Besylate 5 Mg Tablet) 10 mg PO X1 ONE Stop: 08/13/24 04:25 Last Admin: 08/13/24 04:34 Dose: 10 mg Documented By: BD Ceftriaxone Sodium (Ceftriaxone Sodium 500 Mg Vial) 1,000 mg IV X1 ONE Stop: 08/13/24 04:35 Last Admin: 08/13/24 05:01 Dose: Not Given Documented By: BD Non-Admin Reason: Cancelled by Provider Hydromorphone HCl (Hydromorphone Inj 2 Mg/Ml Vial) 0.5 mg IVP X1 ONE Stop: 08/13/24 04:25 Last Admin: 08/13/24 04:46 Dose: 0.5 mg Documented By: BD Ceftriaxone Sodium/Dextrose (Rocephin/D5w 1gm Iv Premix) 1 gm in 50 mls @ 100 mls/hr IV X1 ONE Stop: 08/13/24 05:28 Last Admin: 08/13/24 05:39 Dose: 100 mls/hr Documented By: BD Metoprolol Succinate (Metoprolol Succinate Xl 25 Mg Tabcr) 25 mg PO X1 ONE Stop: 08/13/24 04:25 Last Admin: 08/13/24 04:35 Dose: 25 mg Documented By: BD Morphine Sulfate (Morphine Sulf Inj 10 Mg/Ml Vial) 5 mg IM X1 ONE Stop: 08/12/24 19:54 Last Admin: 08/12/24 20:35 Dose: 5 mg Documented By: CVL Ondansetron HCl (Ondansetron Odt 4 Mg Tabrap) 4 mg PO X1 ONE; Protocol Stop: 08/12/24 21:22 Last Admin: 08/12/24 21:31 Dose: 4 mg Documented By: Ondansetron HCl (Ondansetron Inj 2 Mg/Ml Inj 2 Ml) 4 mg IVP X1 ONE; Protocol Stop: 08/13/24 05:34 Last Admin: 08/13/24 05:44 Dose: 4 mg Documented By: BD See above Consultations Consultation(s) initiated? (list below): Yes Consultation #1 (Physician, Specialty, Details): 5:55a discussed case with patient's provider Dr. Arrington see above Diagnosis Differential diagnosis abdominal pain: abdominal pain, acute appendicitis, calculus of kidney, constipation, diverticulitis, endometriosis, gastroenteritis, pancreatitis and small bowel obstruction Most likely diagnosis given after review of the tests above:: Hypertension, nausea, flank pain Admission Indicated Admission indicated?: not indicated Admission Request Was there a request for admission?: No Disposition Plan Disposition Plan: Discharge Discharge Attestation Discharge Attestation: The patient and all family members were given an opportunity to ask questions and understood the discharge instructions. Discharge instructions specifically effects, indications for sooner follow up or return to the emergency department, and the expected course of current diagnosis. Patient condition: Stable Critical Care Time Critical Care Time Critical Care Time: Yes Total Critical Care Time (min.): 35 Attestation: The high probability of sudden, clinically significant deterioration in the patient?s condition required the highest level of my preparedness to intervene urgently. ? The services I provided to this patient were to treat and/or prevent clinically significant deterioration. Services included the following: chart data review, reviewing nursing notes and/or old charts, documentation time, lead sales consultant collaboration regarding findings and treatment options, medication orders and management, direct patient care, vital sign assessments and ordering, interpreting and reviewing diagnostic studies and lab tests. ? Aggregate critical care time includes only time during which I was engaged in work directly related to the patient?s care, as described above, whether at bedside or elsewhere in the Emergency Department. It did not include time spent performing other reported procedures or the services of residents, students, nurses or physician assistants. Discharge Plan Plan Patient Disposition: HOME (Self Care) Prescriptions/Referrals Prescriptions/Med Rec: New cephalexin 500 mg capsule 500 mg PO QID 7 Days Qty: 28 0RF No Action gabapentin 600 mg Tablet 1,200 mg PO TID (DME) insulin syringe-needle U-100 [BD Insulin Syringe] 1 mL 28 gauge x 1/2 syringe See Rx Instructions .ROUTE .MEDSUPPLY Qty: 100 0RF Rx Instructions: As directed (DME) FreeStyle Zoey 2 [place] Misc See Rx Instructions .Route Qty: 1 2RF Rx Instructions: As directed; once daily insulin glargine 100 unit/mL solution 10 unit subcut QPM Qty: 10 4RF insulin glargine 100 unit/mL (3 mL) insulin pen 10 unit subcut QPM Qty: 15 4RF (DME) FreeStyle Zoey 2 Sensor Kit See Rx Instructions .Route Qty: 1 3RF Rx Instructions: As directed once daily ibuprofen 800 mg tablet 800 mg PO TID PRN (Reason: pain) Qty: 20 0RF acetaminophen-codeine 300-30 mg tablet 1 tab PO Q12H PRN (Reason: pain) Qty: 14 0RF hydroxyzine HCl 25 mg tablet 25 mg PO HS PRN (Reason: insom) Qty: 30 0RF (DME) blood pressure monitor [Blood Pressure Kit] Kit See Rx Instructions .Route Qty: 1 0RF Rx Instructions: As directed Referrals: No Primary/Family,Physician [Primary Care Provider] - In 1 week Problem List Clinical Impression: Urinary tract infection, Hypertension Patient/Caregiver Discharge Instructions Discharge Activity: activity as tolerated Education Materials: ED CYSTITIS Female Adult Additional Instructions: Please go to your dialysis appointment today, if you are unable to get to your appointment today please call your planning feeder to help coordinate outpatient dialysis. If you are still unable to do so please return to the emergency department to reassess. Print Language: Romansh Stand Alone Forms: Monik Award Info., Patient Portal Info Letter
[2024-08-13 04:34] VITALS: BP 210/115; PULSE 68
[2024-08-13] MEDS: amLODIPine BESYLATE 5 MG TABLET 10 MG PO (04:34)
[2024-08-13 04:35] VITALS: BP 210/115; PULSE 68
[2024-08-13] MEDS: METOPROLOL SUCCINATE XL 25 MG TABCR PO (04:35)
[2024-08-13] MEDS: HYDROmorphone INJ 2 MG/ML VIAL 0.5 MG IVP (04:46)
[2024-08-13] MEDS: cefTRIAXone/D5w 1gm IV premix 1 GM/50 ML BAG IV (05:39)
[2024-08-13] MEDS: ONDANSETRON INJ 2 MG/ML INJ 2 ML 4 MG IVP (05:44)
[2024-08-13 05:45] VITALS: BP 192/104; PULSE 68; RESP 16; TEMP 36.9; O2SAT 98
--- NOTE | 2024-08-13 08:45 | PC.CC ---
Yamini WANG was consulted by ultrasound spec Denise regarding transportation for patient back home. ASW arranged transportation via [employer] for the patient to return back home.
== END 2024-08-13 08:44 | disposition home or self-care (01) ==
PROVIDERS: Physician Assistant; Emergency Provider Emergency Medicine
DX: N39.0 Urinary tract infection, site not specified (principal); R10.9 Unspecified abdominal pain; I13.2 Hypertensive heart and chronic kidney disease with heart failure and with stage 5 chronic kidney disease, or end stage renal disease; I50.9 Heart failure, unspecified; N18.6 End stage renal disease; E11.22 Type 2 diabetes mellitus with diabetic chronic kidney disease; Z79.4 Long term (current) use of insulin
CPT/HCPCS: 36415; 74176; 80053; 81001; 83690; 84703; 85025; 87086; 96365; 96372; 96375; 99284; J0696; J1171; J2270; J2405; Q0162; A9270

== ENCOUNTER 2024-08-26 11:12 | Emergency (ER) | payer MEDICAID, SELFPAY ==
[2024-08-26] VITALS (21 sets, daily range): BP systolic 160–177; BP diastolic 85–102; PULSE 55–599; RESP 14–18; TEMP 36.3–37.3; O2SAT 96–100; BMI 36.1
--- NOTE | 2024-08-26 11:21 | XR_ITS ---
Examination: AP chest single view Technique one AP portable semiupright chest single view Date and time: August 26, 2024 1142 hours INDICATIONS: Weakness right lower quadrant abdominal pain today. FINDINGS: Normal heart size Left internal jugular dialysis catheter tips satisfactory position No lobar pneumonia or pulmonary edema IMPRESSION: No lobar pneumonia or pulmonary edema
[2024-08-26 11:58] LABS: Basophils # (Auto) 0.1 Thou/mm3 (0.0-0.2); Basophils % (Auto) 1 % (0-2.5); Eosinophils # (Auto) 0.2 Thou/mm3 (0.0-0.5); Eosinophils % (Auto) 1 % (0-10); Hematocrit 33.5 % (36.0-46.0); Hemoglobin 10.6 g/dL (12.0-16.0); Immature Granulocytes Auto 0.14 Thou/mm3 (0.00-0.00); Lymphocytes # (Auto) 2.7 Thou/mm3 (1.0-4.8); Lymphocytes % (Auto) 22 % (10-50); Mean Corpuscular HGB Conc 31.6 g/dl (31.0-37.0); Mean Corpuscular Hemoglobin 30.5 pg (25.0-35.0); Mean Corpuscular Volume 97 fL (80-100); Monocytes # (Auto) 1.2 Thou/mm3 (0.0-0.8); Monocytes % (Auto) 10 % (0-12); Neutrophils # (Auto) 8.1 Thou/mm3 (1.8-7.7); Neutrophils % (Auto) 66 % (37-80); Nucleated Red Blood Cell # 0.00 Thou/mm3 (0.00-0.00); Nucleated Red Blood Cell % 0 /100 WBC (0); Platelet Count 268 Thou/mm3 (140-440); RDW Standard Deviation 51.8 fL (36.4-46.3); Red Blood Count 3.47 Miln/mm3 (4.00-5.20); White Blood Count 12.3 Thou/mm3 (3.6-11.0)
--- NOTE | 2024-08-26 12:00 | PD.EDWEAK ---
ED Weakness RME/HPI General Chief complaint: Weakness Stated complaint: WEAKNESS Time Seen by Provider: 08/26/24 11:14 Source: patient and EMS Arrival date/time: 08/26/24 11:12 Limitations: no limitations RME / HPI RME / HPI Narrative: 49-year-old female to end-stage renal disease is here today for generalized weakness for 2 days. She is scheduled to have dialysis performed normally on every Friday, Friday, Friday. She is post have dialysis today instead of yesterday due to a scheduled procedure. Yesterday she was post to have a AV fistula placed in her left arm however that was not performed. She states her transport to [place], [place], where she is post to have dialysis today did not show up. She denies any falls or injuries. Has no vomiting. She has no other complaints other than generalized malaise. Related Data Home Medications ?Medication ?Instructions ?Recorded ?Confirmed gabapentin 600 mg tablet 1,200 mg PO TID 06/16/20 12/30/23 Previous Rx's ?Medication ?Instructions ?Recorded insulin syringe-needle U-100 1 mL #100 ea 02/22/20 28 gauge x 1/2 (BD Insulin Syringe) hydroxyzine HCl 25 mg tablet 25 mg PO HS PRN insom #30 tabs 06/06/23 blood pressure monitor (Blood #1 ea 06/28/23 Pressure Kit) flash glucose scanning reader #1 ea 01/13/24 (FreeStyle Zoey 2 [place]) flash glucose sensor (FreeStyle #1 ea 01/13/24 Zoey 2 Sensor kit) insulin glargine 100 unit/mL (3 10 unit (0.1 mL) subcut QPM #15 mL 01/13/24 mL) subcutaneous pen insulin glargine 100 unit/mL 10 unit (0.1 mL) subcut QPM #10 mL 01/13/24 subcutaneous solution acetaminophen 300 mg-codeine 30 mg 1 tab PO Q12H PRN pain #14 tabs 03/04/24 tablet ibuprofen 800 mg tablet 800 mg PO TID PRN pain #20 tabs 03/04/24 Allergies Allergy/AdvReac Type Severity Reaction Status Date / Time No Known Allergies Allergy Verified 08/26/24 11:21 Review of Systems Review of Systems Systems Reviewed: All systems reviewed, normal except as documented ED Exam General Limitations: Present no limitations General appearance: Present alert and in no apparent distress Head Head exam: Present atraumatic Eye Eye exam: Present normal appearance, PERRL and EOMI ENT ENT exam: Present normal exam, normal oropharynx and mucous membranes moist Neck Neck exam: Present normal inspection, full ROM and trachea midline Chest Chest inspection: Present normal inspection and symmetric chest wall rise Respiratory Respiratory exam: Present normal lung sounds bilaterally Cardiovascular Cardiovascular exam: Present regular rate, normal rhythm and normal heart sounds Abdominal Exam Abdominal exam: Present soft and normal bowel sounds Extremities Exam Extremities exam: Present normal inspection and full ROM Back Exam Back exam: Present normal inspection and full ROM Neurological Exam Neurological exam: Present alert, oriented X3 and CN II-XII intact Psychiatric Psychiatric exam: Present normal affect and normal mood Skin Skin exam: Present warm, dry, intact and normal color Course Course Course Narrative: Dr. Koenig, the on-call filling room operator was paged at 1320 1 PM. Nephrology consulted at 13:30 p.m. Orders for dialysis will be placed. Patient may be discharged after her dialysis run. Quality Measures none Orders Category Date Time Status Bedside Blood Glucose NOW Care 08/26/24 11:41 Active Dialysis [Hemodialysis] Urgent Care 08/26/24 13:39 Active Insert IV NOW Care 08/26/24 12:30 Completed Diet Renal Diet 08/26/24 Dinner Active XR chest 1V Stat Exams 08/26/24 11:21 Completed BNP [B-Type Natriuretic Peptide] Stat Lab 08/26/24 11:36 Completed CBC Stat Lab 08/26/24 11:36 Completed CMP [Comprehensive Metabolic Panel] Stat Lab 08/26/24 11:36 Completed UA [Urinalysis] Stat Lab 08/26/24 11:21 Ordered Albumin Human 25% Ivpb [Albuminar-25 Ivpb] Med 08/26/24 13:40 Active 25 gm in 100 ml IV PRN DiphenhydrAMINE INJ [Benadryl Inj] Med 08/26/24 16:00 Discontinued 15 mg IV X1 ONE Heparin* 1000 UNITS/ML- 10 ML [Heparin 1000 UNITS/ML- Med 08/26/24 19:30 Active 10 ML] 3,500 unit INDWELLCAT PRN PRN Morphine Inj Med 08/26/24 16:00 Discontinued 2 mg IVP Q2HR Morphine Inj Med 08/26/24 11:59 Discontinued 2 mg IVP X1 ONE Ondansetron Inj [Zofran Inj] Med 08/26/24 16:48 Discontinued 4 mg IVP X1 ONE PARoxetine HCL [Paxil] Med 08/26/24 16:00 Discontinued 20 mg PO X1 ONE Vital Signs Vital signs: Vital Signs Temperature 99.1 F 08/26/24 11:23 Pulse Rate 77 08/26/24 11:23 Respiratory Rate 16 08/26/24 11:23 Blood Pressure 164/90 H 08/26/24 11:23 Pulse Oximetry (%) 99 08/26/24 11:23 Oxygen Delivery Method Room Air 08/26/24 11:23 Weakness Patient data External records reviewed:: [facility] previous records Clinical information provided by:: patient and EMS Social determinants that could affect healthcare access:: none Patient has the following chronic illnesses:: ESRD How is presenting disease/condition affected by chronic disease/condition?: exacerbated by Evaluation data The following diagnostics were reviewed and interpreted by me:: lab results Lab and/or radiology exams considered but not ordered:: n/a Interpretation Summary: Elevated creatinine consistent with her end-stage renal disease Medications / Prescriptions Medications or Prescriptions considered but not ordered:: n/a Medication administrations:: Medication Administration History Heparin Sodium (Porcine) (Heparin Sod Inj 1000 Unit/Ml Vial 10 Ml) 3,500 unit INDWELLCAT PRN PRN PRN Reason: DIALYSIS Stop: 09/09/24 19:29 Last Admin: 08/26/24 22:34 Dose: 3,500 unit Documented By: VALERIE Co-signed By: DT Albumin Human (Albuminar-25 Ivpb) 25 gm in 100 mls @ 100 mls/min IV PRN PRN PRN Reason: DIALYSIS Discontinued Medications Diphenhydramine HCl (Diphenhydramine Inj 50 Mg/Ml Vial) 15 mg IV X1 ONE Stop: 08/26/24 16:01 Last Admin: 08/26/24 18:13 Dose: 15 mg Documented By: DB Morphine Sulfate (Morphine Sulf Inj 10 Mg/Ml Vial) 2 mg IVP X1 ONE Stop: 08/26/24 12:00 Last Admin: 08/26/24 12:37 Dose: 2 mg Documented By: DB Morphine Sulfate (Morphine Sulf Inj 10 Mg/Ml Vial) 2 mg IVP Q2HR KARY Stop: 08/26/24 20:01 Last Admin: 07/03/25 16:26 Dose: 2 mg Documented By: MAYCO Ondansetron HCl (Ondansetron Inj 2 Mg/Ml Inj 2 Ml) 4 mg IVP X1 ONE; Protocol Stop: 08/26/24 16:49 Last Admin: 08/26/24 16:57 Dose: 4 mg Documented By: MAYCO Paroxetine HCl (Paroxetine Hcl 10 Mg Tablet) 20 mg PO X1 ONE Stop: 08/26/24 16:01 Last Admin: 08/26/24 16:57 Dose: 20 mg Documented By: MAYCO See above Consultations Consultation(s) initiated? (list below): Yes Diagnosis Weakness Differential Diagnosis: anemia, hypoglycemia and dehydration Most likely diagnosis given after review of the tests above:: End-stage renal disease Admission Indicated Admission indicated?: not indicated Admission Request Was there a request for admission?: No Disposition Plan Disposition Plan: Discharge Discharge Attestation Discharge Attestation: The patient and all family members were given an opportunity to ask questions and understood the discharge instructions. Discharge instructions specifically effects, indications for sooner follow up or return to the emergency department, and the expected course of current diagnosis. Patient condition: Stable Discharge Plan Plan Patient Disposition: HOME (Self Care) Patient condition on transfer: Stable Prescriptions/Referrals Prescriptions/Med Rec: No Action gabapentin 600 mg Tablet 1,200 mg PO TID (DME) insulin syringe-needle U-100 [BD Insulin Syringe] 1 mL 28 gauge x 1/2 syringe See Rx Instructions .ROUTE .MEDSUPPLY Qty: 100 0RF Rx Instructions: As directed (DME) FreeStyle Zoey 2 [place] Misc See Rx Instructions .Route Qty: 1 2RF Rx Instructions: As directed; once daily insulin glargine 100 unit/mL solution 10 unit subcut QPM Qty: 10 4RF insulin glargine 100 unit/mL (3 mL) insulin pen 10 unit subcut QPM Qty: 15 4RF (DME) FreeStyle Zoey 2 Sensor Kit See Rx Instructions .Route Qty: 1 3RF Rx Instructions: As directed once daily ibuprofen 800 mg tablet 800 mg PO TID PRN (Reason: pain) Qty: 20 0RF acetaminophen-codeine 300-30 mg tablet 1 tab PO Q12H PRN (Reason: pain) Qty: 14 0RF hydroxyzine HCl 25 mg tablet 25 mg PO HS PRN (Reason: insom) Qty: 30 0RF (DME) blood pressure monitor [Blood Pressure Kit] Kit See Rx Instructions .Route Qty: 1 0RF Rx Instructions: As directed Referrals: Lesia Kramer MD [Primary Care Provider] - In 1 week Problem List Clinical Impression: End-stage renal disease (ESRD) Patient/Caregiver Discharge Instructions Education Materials: Coping with Kidney Failure Print Language: Japanese Stand Alone Forms: Monik Award Info., Patient Portal Info Letter
[2024-08-26 12:18] LABS: Alanine Aminotransferase 40 U/L (10-49); Albumin, Serum 3.9 gm/dL (3.5-5.0); Albumin/Globulin Ratio 1.3 (1.2-2.2); Alkaline Phosphatase 207 U/L (46-116); Anion Gap 8 (7-16); Aspartate Amino Transferase 57 U/L (0-34); BUN/Creatinine Ratio 7 Ratio (12-20); Bilirubin,Total 0.2 mg/dL (0.3-1.2); Blood Urea Nitrogen 54 mg/dL (9-23); Calcium 8.8 mg/dL (8.3-10.6); Calcium (Corrected) 8.9 mg/dL (8.5-10.1); Carbon Dioxide 25.7 mMol/L (20.0-31.0); Chloride 107 mMol/L (98-107); Creatinine (Component) 8.1 mg/dL (0.6-1.3); Estimated Creatinine Clearance 9.5 mL/min (>60); Globulin 2.9 gm/dL (2.3-3.5); Glucose 137 mg/dL (74-106); Osmolality,Calculated 297 (275-295); Potassium 4.1 mMol/L (3.4-5.1); Sodium 141 mMol/L (136-145); Total Protein 6.8 gm/dL (5.7-8.2); eGFR 6 See Note
[2024-08-26] MEDS: MORPHINE SULF INJ 10 MG/ML VIAL 2 MG IVP ×3 (12:37→22:41)
[2024-08-26 13:03] LABS: B-Type Natriuretic Peptide 282 pg/mL (0-100)
[2024-08-26] MEDS: ONDANSETRON INJ 2 MG/ML INJ 2 ML 4 MG IVP ×2 (16:57→22:50)
--- NOTE | 2024-08-26 22:00 | PC.NURSE ---
SON LAURA ALVAREZ. CONTACT INFORMATION [phone].
[2024-08-26] MEDS: HEPARIN SOD INJ 1000 UNIT/ML VIAL 10 ML 3500 UNIT INDWELLCAT (22:34)
== END 2024-08-26 23:08 | disposition home or self-care (01) ==
PROVIDERS: Emergency Provider Physician Assistant Medical; PCP Family Medicine
DX: N18.6 End stage renal disease (principal); Z99.2 Dependence on renal dialysis
CPT/HCPCS: 36415; 71045; 80053; 81001; 83880; 85025; 90935; 96374; 96375; 96376; 99284; J1200; J1643; J2270; J2405; A9270; G0257

== ENCOUNTER 2024-09-19 18:12 | Emergency (ER) | payer MEDICAID, SELFPAY ==
[2024-09-19 18:13] VITALS: BMI 36.6
[2024-09-19 18:55] VITALS: BP 153/85; PULSE 91; RESP 19; TEMP 36.9; O2SAT 98
--- NOTE | 2024-09-19 19:47 | EDRME_ITS ---
Rapid Medical Screening Exam RME Arrival date/time: 09/19/24 18:12 Chief Complaint: Shortness of Breath/Dyspnea Time Seen by Provider: 09/19/24 19:32 Vital signs: Vital Signs Temperature 98.4 F 09/19/24 18:55 Pulse Rate 91 09/19/24 18:55 Respiratory Rate 19 09/19/24 18:55 Blood Pressure 153/85 H 09/19/24 18:55 Pulse Oximetry (%) 98 09/19/24 18:55 Oxygen Delivery Method Room Air 09/19/24 18:55 RME Narrative: 49-year-old female with a past medical history of diabetes, hypertension, end- stage renal disease on hemodialysis presented to the ED with a complaint of shortness of breath and orthopnea. She was supposed to have dialysis on Friday but was unable to because she was having surgery to place a new graft in her left arm. I have greeted and performed a focused initial assessment of this patient. A comprehensive ED assessment and evaluation of the patient, analysis of all test results, and completion of the medical decision making process will be conducted by additional ED providers.
--- NOTE | 2024-09-19 19:50 | XR_ITS ---
Examination: PA lateral chest 2 views TECHNIQUE: Upright PA and lateral chest 2 views Date and time: September 19, 20242001 hours INDICATIONS: Shortness of breath. FINDINGS: No significant cardiac enlargement. Left internal jugular dialysis catheter tip right atrium Mild vascular congestion. Mild opacity in the lingular segment obscuring detail left cardiac contour IMPRESSION: Suspicious for early pneumonia in the lingular segment left upper lobe
--- NOTE | 2024-09-19 19:50 | EKG_ITS ---
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
[2024-09-19 20:59] LABS: Lactate (Lactic Acid) 1.7 mMol/L (0.4-2.0)
[2024-09-19 21:05] LABS: Basophils # (Auto) 0.1 Thou/mm3 (0.0-0.2); Basophils % (Auto) 1 % (0-2.5); Eosinophils # (Auto) 0.4 Thou/mm3 (0.0-0.5); Eosinophils % (Auto) 5 % (0-10); Hematocrit 37.3 % (36.0-46.0); Hemoglobin 11.5 g/dL (12.0-16.0); Immature Granulocytes Auto 0.04 Thou/mm3 (0.00-0.00); Lymphocytes # (Auto) 1.5 Thou/mm3 (1.0-4.8); Lymphocytes % (Auto) 19 % (10-50); Mean Corpuscular HGB Conc 30.8 g/dl (31.0-37.0); Mean Corpuscular Hemoglobin 30.3 pg (25.0-35.0); Mean Corpuscular Volume 98 fL (80-100); Monocytes # (Auto) 0.8 Thou/mm3 (0.0-0.8); Monocytes % (Auto) 10 % (0-12); Neutrophils # (Auto) 5.1 Thou/mm3 (1.8-7.7); Neutrophils % (Auto) 65 % (37-80); Nucleated Red Blood Cell # 0.00 Thou/mm3 (0.00-0.00); Nucleated Red Blood Cell % 0 /100 WBC (0); Platelet Count 251 Thou/mm3 (140-440); RDW Standard Deviation 54.1 fL (36.4-46.3); Red Blood Count 3.79 Miln/mm3 (4.00-5.20); White Blood Count 7.8 Thou/mm3 (3.6-11.0)
[2024-09-19 21:07] VITALS: BP 186/94; PULSE 93; RESP 28; TEMP 37; O2SAT 100
[2024-09-19 21:12] LABS: INR 0.9 (0.9-1.3); Partial Thromboplastin Time 24.6 Seconds (22.0-36.0); Prothrombin Time 10.4 Seconds (9.0-12.2)
[2024-09-19 21:17] LABS: Beta Hydroxybutyrate 0.1 mmol/L (<0.6)
[2024-09-19 21:23] LABS: B-Type Natriuretic Peptide 123 pg/mL (0-100)
[2024-09-19 21:24] LABS: Base Excess -3 (-3-3); HCO3 23 mEq/L (20-26); Inspired Oxygen, FIO2 21 %; PCO2 42 mmHg (32.0-48.0); PO2 93 mmHg (83-108); pH, Arterial 7.34 (7.35-7.45)
[2024-09-19 21:25] LABS: Allen Test Performed/OK; O2 Saturation 100 % (91-98); Puncture Site Right Radial
[2024-09-19 21:28] LABS: Alanine Aminotransferase < 7 U/L (10-49); Albumin, Serum 4.2 gm/dL (3.5-5.0); Albumin/Globulin Ratio 1.3 (1.2-2.2); Alkaline Phosphatase 201 U/L (46-116); Anion Gap 13 (7-16); Aspartate Amino Transferase 27 U/L (0-34); BUN/Creatinine Ratio 6 Ratio (12-20); Bilirubin,Total 0.2 mg/dL (0.3-1.2); Blood Urea Nitrogen 57 mg/dL (9-23); Calcium 9.3 mg/dL (8.3-10.6); Calcium (Corrected) 9.3 mg/dL (8.5-10.1); Carbon Dioxide 23.1 mMol/L (20.0-31.0); Chloride 105 mMol/L (98-107); Creatinine (Component) 9.4 mg/dL (0.6-1.3); Estimated Creatinine Clearance 8.3 mL/min (>60); Globulin 3.3 gm/dL (2.3-3.5); Glucose 177 mg/dL (74-106); LDH (Lactate Dehydrogenase) 205 U/L (120-246); Magnesium 2.4 mg/dL (1.6-2.6); Osmolality,Calculated 301 (275-295); Phosphorous 6.0 mg/dL (2.4-5.1); Potassium 5.0 mMol/L (3.4-5.1); Procalcitonin 0.19 ng/ml (0.0-0.49); Sodium 141 mMol/L (136-145); Total Protein 7.5 gm/dL (5.7-8.2); Troponin I < 0.020 ng/mL (0.0-0.045); eGFR 5 See Note
--- NOTE | 2024-09-19 22:02 | EDNOTE_ITS ---
ED SOB =RME/HPI General Chief Complaint: Shortness of Breath/Dyspnea Stated Complaint: HAVEN'T HAD DIALYSIS SINCE FRIDAY Time Seen by Provider: 09/19/24 19:32 Arrival date/time: 09/19/24 18:12 RME / HPI RME / HPI Narrative: 49-year-old female with a past medical history of diabetes, hypertension, end- stage renal disease on hemodialysis presented to the ED with a complaint of shortness of breath and orthopnea. She was supposed to have dialysis on Friday but was unable to because she was having surgery to place a new graft in her left arm. I have greeted and performed a focused initial assessment of this patient. A comprehensive ED assessment and evaluation of the patient, analysis of all test results, and completion of the medical decision making process will be conducted by additional ED providers. DR. SHAY MAIN ED EVALUATION: 49 y/o female with Hx of ESRD with dialysis and recent SHx of graft placement presents to ED c/o RL back pain and shortness of breath s/p missing dialysis appointment due to surgery. Patient was scheduled for dialysis on Friday, but has her next dialysis treatment scheduled for Friday. Patient is able to produce very little urine. She only reports feeling back pain similar to today when she had right kidney cancer. No other concerns or complaints expressed at this time. Related Data Home Medications ?Medication ?Instructions ?Recorded ?Confirmed gabapentin 600 mg tablet 1,200 mg PO TID 06/16/2007/17 Previous Rx's ?Medication ?Instructions ?Recorded insulin syringe-needle U-100 1 mL #100 ea 02/22/20 28 gauge x 1/2 (BD Insulin Syringe) hydroxyzine HCl 25 mg tablet 25 mg PO HS PRN insom #30 tabs 06/06/23 blood pressure monitor (Blood #1 ea 06/28/23 Pressure Kit) flash glucose scanning reader #1 ea 01/13/24 (FreeStyle Zoey 2 [place]) flash glucose sensor (FreeStyle #1 ea 01/13/24 Zoey 2 Sensor kit) insulin glargine 100 unit/mL (3 10 unit (0.1 mL) subcu t QPM #15 mL 01/13/24 mL) subcutaneous pen insulin glargine 100 unit/mL 10 unit (0.1 mL) subcut Q PM #10 mL 01/13/24 subcutaneous solution acetaminophen 300 mg-codeine 30 mg 1 tab PO Q12H PRN p ain #14 tabs 03/04/24 tablet ibuprofen 800 mg tablet 800 mg PO TID PRN pain #20 t abs 03/04/24 Allergies Allergy/AdvReac Type Severity Reaction Status Date / Time No Known Allergies Allergy Verified 09/19/24 18:16 Review of Systems Review of Systems Systems Reviewed: All systems reviewed, normal except as documented Past Medical History Past Medical History CARDIAC: Positive Heart Murmur and Hypertension RESPIRATORY: Positive Asthma GASTROINTESTINAL: Positive Obesity GENITOURINARY: Positive Renal Disease and Dialysis REPRODUCTIVE: Positive Previous Pregnancies MUSCULOSKELETAL: Positive Arthritis and Osteomyelitis ENT: Positive Blind ENDOCRINE: Positive Endocrine Disorders and Diabetes Mellitus Type 2 PSYCHO/SOCIAL: Positive Bipolar Disorder, Depression and Anxiety OTHER HISTORY: Positive Hospitalization, Falls, Chicken Pox and Cancer Family History FAMILY HISTORY: Positive Family Cancer Surgical History SURGICAL: Positive Abdominal Surgery, Amputation and Section ED Exam Narrative Physical exam: Generally patient is alert chronically ill-appearing in mild distress secondary to right lower back pain. Heart regular rate and rhythm lungs show distant breath sounds bilaterally without crackles abdomen is obese soft nondistended nontender chest shows a left upper chest Vas-Cath to be in place extremities show a freshly placed left upper extremity dialysis fistula with a palpable thrill musculoskeletal exam shows the patient have right lower paravertebral muscular tenderness with the patient being neurologically intact. Course Course Course Narrative: CXR is ordered for determining the etiology of shortness of breath. Quality Measures none Orders Category Date Time Status EKG (ED ONLY) *Do not use* NOW Care 09/19/24 19:50 Completed IV [Insert IV] NOW Care 09/19/24 19:56 Active EKG (ED Only) Stat Exams 09/19/24 19:50 Draft XR chest 2V Stat Exams 09/19/24 19:50 Completed ABG [Arterial Blood Gas] Stat Lab 09/19/24 21:19 Completed Acetone [Beta Hydroxybutyrate] Stat Lab 09/19/24 20:39 Completed B-Type Natriuretic Peptide Stat Lab 09/19/24 20:39 Completed CBC Stat Lab 09/19/24 20:39 Completed CMP [Comprehensive Metabolic Panel] Stat Lab 09/19/24 20:39 Completed LDH (Lactate Dehydrogenase) Stat Lab 09/19/24 20:39 Completed Lactic Acid [Lactate (Lactic Acid)] Stat Lab 09/19/24 20:39 Completed Magnesium Stat Lab 09/19/24 20:39 Completed Partial Thromboplastin Time Stat Lab 09/19/24 20:39 Completed Phosphorous Stat Lab 09/19/24 20:39 Completed Procalcitonin Stat Lab 09/19/24 20:39 Completed Prothrombin Time with INR Stat Lab 09/19/24 20:39 Completed Troponin I Stat Lab 09/19/24 20:39 Completed Urinalysis Stat Lab 09/19/24 19:52 Ordered Urinalysis, C/S if Indicated Stat Lab 09/19/24 19:52 Ordered Morphine Inj Med 09/19/24 22:03 Discontinued 4 mg IVP X1 ONE Vital Signs Vital signs: Vital Signs Temperature 98.4 F 09/19/24 18:55 Pulse Rate 91 09/19/24 18:55 Respiratory Rate 19 09/19/24 18:55 Blood Pressure 153/85 H 09/19/24 18:55 Pulse Oximetry (%) 98 09/19/24 18:55 Oxygen Delivery Method Room Air 09/19/24 18:55 Shortness of Breath / Dyspnea MDM Narrative MDM Narrative:: Scribe Attestation: I, Birgit Philip, am scribing for and in the presence of Dr. Shay. Provider Notation: Although this document has been carefully reviewed, there may still be some phonetic and other typographical errors.? These errors are purely grammatical due to imperfections in the software program and should not be construed in any way to? compromise the substance of the patient's medical care during this visit. I interpreted all labs. There was no significant abnormality. Troponin is not elevated. Chest x-ray showed no failure. There is no clinical signs for pneumonia. Patient's vital signs are stable. Patient received morphine 4 mg IV for her chronic back pain. She is to keep her dialysis appointment tomorrow. Return to ER as needed or if condition worsens. Patient data External records reviewed:: [facility] previous records (Reviewed prior ED records available for 08/26/24. Patient was seen for End-stage renal disease (ESRD).) Clinical information provided by:: patient Social determinants that could affect healthcare access:: none Patient has the following chronic illnesses:: Heart Murmur, Hypertension, Asthma, Obesity, Renal Disease and Dialysis, Arthritis, Osteomyelitis, Blind, Diabetes Mellitus Type 2, Bipolar Disorder, Depression and Anxiety How is presenting disease/condition affected by chronic disease/condition?: exacerbated by Evaluation data The following diagnostics were reviewed and interpreted by me:: lab results, radiology exam(s) and EKG tracing(s) Lab and/or radiology exams considered but not ordered:: None Interpretation Summary: RADIOLOGY Chest X-Ray: FINDINGS: No significant cardiac enlargement. Left internal jugular dialysis catheter tip right atrium Mild vascular congestion. Mild opacity in the lingular segment obscuring detail left cardiac contour IMPRESSION: Suspicious for early pneumonia in the lingular segment left upper lobe Medications / Prescriptions Medications or Prescriptions considered but not ordered:: None Medication administrations:: Medication Administration History Discontinued Medications Morphine Sulfate (Morphine Sulf Inj 10 Mg/Ml Vial) 4 mg IVP X1 ONE Stop: 09/19/24 22:04 Last Admin: 09/19/24 22:27 Dose: 4 mg Documented By: [email or web address] See above Consultations Consultation(s) initiated? (list below): No Diagnosis Shortness of Breath Differential Diagnosis: congestive heart failure, community acquired pneumonia and pulmonary embolism Most likely diagnosis given after review of the tests above:: None Admission Indicated Admission indicated?: not indicated Explain why admission is indicated or not indicated:: Patient does not meet admission criteria. Admission Request Was there a request for admission?: No Disposition Plan Disposition Plan: Discharge Discharge Attestation Discharge Attestation: The patient and all family members were given an opportunity to ask questions and understood the discharge instructions. Discharge instructions specifically effects, indications for sooner follow up or return to the emergency department, and the expected course of current diagnosis. Patient condition: Stable Discharge Plan Plan Patient Disposition: HOME (Self Care) Prescriptions/Referrals Prescriptions/Med Rec: No Action gabapentin 600 mg Tablet 1,200 mg PO TID (DME) insulin syringe-needle U-100 [BD Insulin Syringe] 1 mL 28 gauge x 1/2 syringe See Rx Instructions .ROUTE .MEDSUPPLY Qty: 100 0RF Rx Instructions: As directed (DME) FreeStyle Zoey 2 [place] Misc See Rx Instructions .Route Qty: 1 2RF Rx Instructions: As directed; once daily insulin glargine 100 unit/mL solution 10 unit subcut QPM Qty: 10 4RF insulin glargine 100 unit/mL (3 mL) insulin pen 10 unit subcut QPM Qty: 15 4RF (DME) FreeStyle Zoey 2 Sensor Kit See Rx Instructions .Route Qty: 1 3RF Rx Instructions: As directed once daily ibuprofen 800 mg tablet 800 mg PO TID PRN (Reason: pain) Qty: 20 0RF acetaminophen-codeine 300-30 mg tablet 1 tab PO Q12H PRN (Reason: pain) Qty: 14 0RF hydroxyzine HCl 25 mg tablet 25 mg PO HS PRN (Reason: insom) Qty: 30 0RF (DME) blood pressure monitor [Blood Pressure Kit] Kit See Rx Instructions .Route Qty: 1 0RF Rx Instructions: As directed Referrals: Santiago Saldivar MD [Primary Care Provider] - In 1 week Problem List Clinical Impression: Dyspnea, Renal failure Patient/Caregiver Discharge Instructions Additional Instructions: Continue current medications. Keep your dialysis appointment tomorrow. Follow- up with your doctor. Return to ER as needed or if condition worsens. Print Language: Citizen Of [place] Stand Alone Forms: Monik Award Info., Patient Portal Info Letter
[2024-09-19] MEDS: MORPHINE SULF INJ 10 MG/ML VIAL 4 MG IVP (22:27)
[2024-09-19 23:34] VITALS: BP 186/94; PULSE 89; RESP 17
== END 2024-09-19 23:35 | disposition home or self-care (01) ==
PROVIDERS: Physician Assistant; Emergency Provider Emergency Medicine; PCP Family Medicine
DX: I12.0 Hypertensive chronic kidney disease with stage 5 chronic kidney disease or end stage renal disease (principal); N18.6 End stage renal disease; R06.00 Dyspnea, unspecified; E11.22 Type 2 diabetes mellitus with diabetic chronic kidney disease; R94.31 Abnormal electrocardiogram [ECG] [EKG]; Z91.158 Patient's noncompliance with renal dialysis for other reason; Z99.2 Dependence on renal dialysis; Z79.4 Long term (current) use of insulin; Z85.528 Personal history of other malignant neoplasm of kidney
CPT/HCPCS: 36415; 36600; 71046; 80053; 81001; 82010; 82803; 83605; 83615; 83735; 83880; 84100; 84145; 84484; 85025; 85610; 85730; 87400; 87811; 93005; 96374; 99283; J2270

== ENCOUNTER 2024-10-26 16:16 | Emergency (ER) | payer MEDICAID, SELFPAY ==
[2024-10-26 16:38] VITALS: BP 115/73; PULSE 73; RESP 20; TEMP 37.4; O2SAT 98
--- NOTE | 2024-10-26 16:47 | EKG_ITS ---
[facility] Test Date: 2024-10-26 Pat Name: ARVIN FUNEZ Department: Room: - Gender: Female [employer]: : 1975 Requested By: Jd Frey Order Number: [id number] Reading MD: Jd Frey Measurements Intervals [place] Rate: 71 P: 42 MI: 159 QRS: 31 QRSD: 76 T: 64 QT: 393 QTc: 429 Interpretive Statements SINUS RHYTHM LOW QRS VOLTAGE IN PRECORDIAL LEADS [QRS DEFLECTION < 1.0 mV IN CHEST LEADS] POSSIBLE ANTERIOR MYOCARDIAL INFARCTION , OF INDETERMINATE AGE [30 ms Q WAVE IN V3/V4, OR R < 0.2 mV IN V4] Compared to ECG 09/19/2024 19:59:06 Low QRS voltage now present Myocardial infarct finding still present /store/S0/[id number]/ecg/[id number].pdf
--- NOTE | 2024-10-26 16:48 | PD.EDRME ---
Rapid Medical Screening Exam RME Arrival date/time: 10/26/24 16:16 49-year-old female with a history of type 2 diabetes on dialysis presents to the emergency room with a chief complaint of shakiness, weakness, body aches and chills x 2 days I have greeted and performed a focused initial assessment of this patient. A comprehensive ED assessment and evaluation of the patient, analysis of all test results, and completion of the medical decision making process will be conducted by additional ED providers. Chief Complaint: General Adult/Misc Complain Time Seen by Provider: 10/26/24 16:43 Vital signs: Vital Signs Temperature 99.3 F 10/26/24 16:38 Pulse Rate 73 10/26/24 16:38 Respiratory Rate 20 10/26/24 16:38 Blood Pressure 115/73 10/26/24 16:38 Pulse Oximetry (%) 98 10/26/24 16:38 Oxygen Delivery Method Room Air 10/26/24 16:38 Vital signs reviewed by provider: Yes
[2024-10-26 17:11] LABS: Basophils # (Auto) 0.1 Thou/mm3 (0.0-0.2); Basophils % (Auto) 1 % (0-2.5); Eosinophils # (Auto) 0.4 Thou/mm3 (0.0-0.5); Eosinophils % (Auto) 4 % (0-10); Hematocrit 35.5 % (36.0-46.0); Hemoglobin 11.3 g/dL (12.0-16.0); Immature Granulocytes Auto 0.09 Thou/mm3 (0.00-0.00); Lymphocytes # (Auto) 2.0 Thou/mm3 (1.0-4.8); Lymphocytes % (Auto) 22 % (10-50); Mean Corpuscular HGB Conc 31.8 g/dl (31.0-37.0); Mean Corpuscular Hemoglobin 30.1 pg (25.0-35.0); Mean Corpuscular Volume 94 fL (80-100); Monocytes # (Auto) 1.0 Thou/mm3 (0.0-0.8); Monocytes % (Auto) 11 % (0-12); Neutrophils # (Auto) 5.7 Thou/mm3 (1.8-7.7); Neutrophils % (Auto) 61 % (37-80); Nucleated Red Blood Cell # 0.00 Thou/mm3 (0.00-0.00); Nucleated Red Blood Cell % 0 /100 WBC (0); Platelet Count 221 Thou/mm3 (140-440); RDW Standard Deviation 45.2 fL (36.4-46.3); Red Blood Count 3.76 Miln/mm3 (4.00-5.20); White Blood Count 9.3 Thou/mm3 (3.6-11.0)
[2024-10-26 17:27] LABS: B-Type Natriuretic Peptide 67 pg/mL (0-100)
[2024-10-26 17:28] LABS: Alanine Aminotransferase 15 U/L (10-49); Albumin, Serum 4.0 gm/dL (3.5-5.0); Albumin/Globulin Ratio 1.4 (1.2-2.2); Alkaline Phosphatase 143 U/L (46-116); Anion Gap 11 (7-16); Aspartate Amino Transferase 14 U/L (0-34); BUN/Creatinine Ratio 5 Ratio (12-20); Bilirubin,Total 0.3 mg/dL (0.3-1.2); Blood Urea Nitrogen 35 mg/dL (9-23); Calcium 9.4 mg/dL (8.3-10.6); Calcium (Corrected) 9.4 mg/dL (8.5-10.1); Carbon Dioxide 28.1 mMol/L (20.0-31.0); Chloride 101 mMol/L (98-107); Creatinine (Component) 7.1 mg/dL (0.6-1.3); Globulin 2.8 gm/dL (2.3-3.5); Glucose 157 mg/dL (74-106); INR 1.0 (0.9-1.3); LDH (Lactate Dehydrogenase) 179 U/L (120-246); Magnesium 2.0 mg/dL (1.6-2.6); Osmolality,Calculated 290 (275-295); Partial Thromboplastin Time 23.1 Seconds (22.0-36.0); Potassium 4.8 mMol/L (3.4-5.1); Prothrombin Time 10.7 Seconds (9.0-12.2); Sodium 140 mMol/L (136-145); Total Protein 6.8 gm/dL (5.7-8.2); Troponin I < 0.020 ng/mL (0.0-0.045); eGFR 6 See Note
[2024-10-26] MEDS: ACETAMINOPHEN 500 MG TABLET 1000 MG PO (17:38)
--- NOTE | 2024-10-26 19:27 | PD.EDURI ---
Upper Respiratory Inf. RME/HPI General Chief Complaint: General Adult/Misc Complain Stated Complaint: SHAKY, UNABLE TO WALK, FALLING, BONES HURT Time Seen by Provider: 10/26/24 16:43 Arrival date/time: 10/26/24 16:16 RME / HPI RME / HPI Narrative: 10/26/24 16:16 49-year-old female with a history of type 2 diabetes on dialysis presents to the emergency room with a chief complaint of shakiness, weakness, body aches and chills x 2 days I have greeted and performed a focused initial assessment of this patient. A comprehensive ED assessment and evaluation of the patient, analysis of all test results, and completion of the medical decision making process will be conducted by additional ED providers. ------ See [facility] for Dr. Loja's HPI documentation. Related Data Home Medications ?Medication ?Instructions ?Recorded ?Confirmed gabapentin 600 mg tablet 1,200 mg PO TID 06/16/20 12/30/23 Previous Rx's ?Medication ?Instructions ?Recorded insulin syringe-needle U-100 1 mL #100 ea 02/22/20 28 gauge x 1/2 (BD Insulin Syringe) hydroxyzine HCl 25 mg tablet 25 mg PO HS PRN insom #30 tabs 06/06/23 blood pressure monitor (Blood #1 ea 06/28/23 Pressure Kit) flash glucose scanning reader #1 ea 01/13/24 (FreeStyle Zoey 2 [place]) flash glucose sensor (FreeStyle #1 ea 01/13/24 Zoey 2 Sensor kit) insulin glargine 100 unit/mL (3 10 unit (0.1 mL) subcut QPM #15 mL 01/13/24 mL) subcutaneous pen insulin glargine 100 unit/mL 10 unit (0.1 mL) subcut QPM #10 mL 01/13/24 subcutaneous solution acetaminophen 300 mg-codeine 30 mg 1 tab PO Q12H PRN pain #14 tabs 03/04/24 tablet ibuprofen 800 mg tablet 800 mg PO TID PRN pain #20 tabs 03/04/24 acetaminophen 300 mg-codeine 30 mg 2 tab PO Q8H PRN pain #20 tabs 10/26/24 tablet albuterol sulfate 90 mcg/actuation 2 puff inhalation Q6H PRN 10/26/24 aerosol inhaler shortness of breath or wheezing #8.5 grams ibuprofen 400 mg tablet 400 mg PO Q8H PRN pain #30 tabs 10/26/24 ondansetron 4 mg disintegrating 4 mg PO TID PRN nausea and 10/26/24 tablet vomiting 30 days #10 tabs oseltamivir 6 mg/mL oral 30 mg (5 mL) PO DAILY 5 days #25 mL 10/26/24 suspension (Tamiflu) prednisone 20 mg tablet 20 mg PO BID 3 days #6 tabs 10/26/24 Allergies Allergy/AdvReac Type Severity Reaction Status Date / Time No Known Allergies Allergy Verified 10/26/24 16:20 Review of Systems Review of Systems Systems Reviewed: All systems reviewed, normal except as documented Past Medical History Past Medical History NEUROLOGIC: Negative Neurological Disorders or Seizures CARDIAC: Positive Heart Murmur and Hypertension; Negative Cardiac Disorders or Congestive Heart Failure RESPIRATORY: Positive Asthma; Negative Chronic Obstructive Pulmonary Disease (COPD) GASTROINTESTINAL: Positive Obesity; Negative Gastrointestinal Disorders GENITOURINARY: Positive Renal Disease and Dialysis REPRODUCTIVE: Positive Previous Pregnancies MUSCULOSKELETAL: Positive Arthritis and Osteomyelitis ENT: Positive Blind ENDOCRINE: Positive Endocrine Disorders and Diabetes Mellitus Type 2; Negative Diabetes Mellitus Type 1 HEMATOLOGIC: Negative Sickle Cell Disease PSYCHO/SOCIAL: Positive Bipolar Disorder, Depression and Anxiety OTHER HISTORY: Positive Hospitalization, Falls, Chicken Pox and Cancer; Negative Autoimmune Disease, Down Syndrome, Developmental Delay, Shingles, Blood Transfusions, Blood Transfusion Reaction, Anesthesia Reactions or Organ Transplant Family History FAMILY HISTORY: Positive Family Cancer; Negative Family Respiratory Disorders, Family Cardiac Disorders, Family Gastrointestinal Problems, Family Surgery or Family Anesthesia Reaction Surgical History SURGICAL: Positive Abdominal Surgery, Amputation and Section; Negative Cardiac Surgery, Nephrectomy or Organ Transplant Social History SMOKING STATUS: Never smoker SECOND HAND EXPOSURE: No SUBSTANCE USE: does not use ED Exam Narrative Physical exam: See [facility] for Dr. Loja's physical exam documentation. Course Quality Measures none Orders Category Date Time Status EKG (ED ONLY) *Do not use* NOW Care 10/26/24 16:47 Completed EKG (ED Only) Stat Exams 10/26/24 16:47 Draft B-Type Natriuretic Peptide Stat Lab 10/26/24 17:00 Completed CBC Stat Lab 10/26/24 17:00 Completed Comprehensive Metabolic Panel Stat Lab 10/26/24 17:00 Completed LDH (Lactate Dehydrogenase) Stat Lab 10/26/24 17:00 Completed Magnesium Stat Lab 10/26/24 17:00 Completed Partial Thromboplastin Time Stat Lab 10/26/24 17:00 Completed Prothrombin Time with INR Stat Lab 10/26/24 17:00 Completed Troponin I Stat Lab 10/26/24 17:00 Completed Acetaminophen Tab [Tylenol ES Tab] Med 10/26/24 16:47 Discontinued 1,000 mg PO X1 ONE Morphine Inj Med 10/26/24 19:28 Discontinued 10 mg IM X1 ONE Oseltamivir [Tamiflu] Med 10/26/24 19:28 Discontinued 75 mg PO X1 ONE Vital Signs Vital signs: Vital Signs Temperature 99.3 F 10/26/24 16:38 Pulse Rate 73 10/26/24 16:38 Respiratory Rate 20 10/26/24 16:38 Blood Pressure 115/73 10/26/24 16:38 Pulse Oximetry (%) 98 10/26/24 16:38 Oxygen Delivery Method Room Air 10/26/24 16:38 Upper Respiratory Infection MDM Narrative MDM Narrative:: This section includes all my notes and documentations, including HPI, PE, and ED course. Gregor Loja MD HPI: 49yo female here with a couple day history of cough and subjective fever and chills and bodyaches and malaise. No other complaints. ROS: All negative except as documented in HPI. Physical Exam: General: Alert and oriented. Appearance of malaise noted. Eyes: Conjunctivae and lids clear. ENT: No nasal congestion. Neck: Supple. Heart: RRR. Lungs: No respiratory distress. Good air movement. No rhonchi, wheezing, rales. Abdomen: Soft and nontender. Normal bowel sounds. No distension. No rebound or guarding. Back: No CVA tenderness. Skin: Warm and dry. Neuro: Alert and oriented X 3. I reviewed all diagnostic test results. My interpretation of the EKG is sinus rhythm with no acute ST?T changes. Blood tests remarkable for Creatinine 7.1 (dialysis patient). Influenza positive. COVID negative. At this point, diagnoses include 1. Influenza A 2. Influenza B Treatment here included: 1. Tamiflu 2. Morphine 10 mg IM Recommended supportive care. Based on my best medical judgment, made decision no further evaluation or treatment indicated at this time. Patient understands and agrees to the discharge instructions customized and printed, see below. Discharge instructions from Dr. Loja: --No physical exertion for 3 days to help rest your lungs. --No smoking and no exposure to smoking or pets or dust or . Humidity. --Tamiflu to kill the influenza germs. --Prednisone to help decrease inflammation of the lungs. --Ibuprofen 400 mg every 8 hours today and tomorrow. Then as needed for fever or pain. --Tylenol with codeine for severe cough or pain. --Albuterol 2 puffs every 4-6 hours as needed for cough or shortness or breath. --See a private doctor next week if not completely better. --Seek immediate medical care with worsening or with any concerns. Gregor Loja MD Patient data External records reviewed:: [facility] previous records (Per chart review, patient was seen here on 09/19/24 for dyspnea.) Clinical information provided by:: patient Social determinants that could affect healthcare access:: none Patient has the following chronic illnesses:: ESRD on HD How is presenting disease/condition affected by chronic disease/condition?: uneffected by Evaluation data The following diagnostics were reviewed and interpreted by me:: lab results and EKG tracing(s) Lab and/or radiology exams considered but not ordered:: none Interpretation Summary: I reviewed all diagnostic test results. My interpretation of the EKG is sinus rhythm with no acute ST?T changes. Blood tests remarkable for Creatinine 7.1 (dialysis patient). Influenza positive. COVID negative. Medications / Prescriptions Medications or Prescriptions considered but not ordered:: none Medication administrations:: Medication Administration History Discontinued Medications Acetaminophen (Acetaminophen 500 Mg Tablet) 1,000 mg PO X1 ONE Stop: 10/26/24 16:48 Last Admin: 10/26/24 17:38 Dose: 1,000 mg Documented By: OA Morphine Sulfate (Morphine Sulf Inj 10 Mg/Ml Vial) 10 mg IM X1 ONE Stop: 10/26/24 19:29 Last Admin: 10/26/24 19:42 Dose: 10 mg Documented By: BD Oseltamivir Phosphate (Oseltamivir 75 Mg Capsule) 75 mg PO X1 ONE Stop: 10/26/24 19:29 Last Admin: 10/26/24 19:42 Dose: 75 mg Documented By: BD Tamiflu, Morphine Consultations Consultation(s) initiated? (list below): No Diagnosis Upper Respiratory Differential Diagnosis: upper respiratory infection, croup, otitis media, sinusitis, viral infection, bronchitis, influenza, pharyngitis and other (COVID) Most likely diagnosis given after review of the tests above:: Influenza A and B Admission Indicated Admission indicated?: not indicated Explain why admission is indicated or not indicated:: With no condition needing emergent intervention, there was no indication for admission. Admission Request Was there a request for admission?: No Disposition Plan Disposition Plan: Discharge Discharge Attestation Discharge Attestation: The patient and all family members were given an opportunity to ask questions and understood the discharge instructions. Discharge instructions specifically effects, indications for sooner follow up or return to the emergency department, and the expected course of current diagnosis. Patient condition: Stable Discharge Plan Plan Patient Disposition: HOME (Self Care) Prescriptions/Referrals Prescriptions/Med Rec: New prednisone 20 mg tablet 20 mg PO BID 3 Days Qty: 6 0RF Taper: Prednisone Taper 20 mg DAILY for 2 Days and 0 Hour 10 mg DAILY for 2 Days and 0 Hour 5 mg DAILY for 7 Days and 0 Hour acetaminophen-codeine 300-30 mg tablet 2 tab PO Q8H MDD 6 PRN (Reason: pain) Qty: 20 0RF ibuprofen 400 mg tablet 400 mg PO Q8H PRN (Reason: pain) Qty: 30 0RF albuterol sulfate 90 mcg/actuation HFA aerosol inhaler 2 puff inhalation Q6H PRN (Reason: shortness of breath or wheezing) Qty: 8.5 0RF ondansetron 4 mg tablet,disintegrating 4 mg PO TID PRN (Reason: nausea and vomiting) 30 Days Qty: 10 0RF oseltamivir [Tamiflu] 6 mg/mL suspension for reconstitution 30 mg PO DAILY 5 Days Qty: 25 0RF No Action gabapentin 600 mg Tablet 1,200 mg PO TID (DME) insulin syringe-needle U-100 [BD Insulin Syringe] 1 mL 28 gauge x 1/2 syringe See Rx Instructions .ROUTE .MEDSUPPLY Qty: 100 0RF Rx Instructions: As directed (DME) FreeStyle Zoey 2 [place] [facility] See Rx Instructions .Route Qty: 1 2RF Rx Instructions: As directed; once daily insulin glargine 100 unit/mL solution 10 unit subcut QPM Qty: 10 4RF insulin glargine 100 unit/mL (3 mL) insulin pen 10 unit subcut QPM Qty: 15 4RF (DME) FreeStyle Zoey 2 Sensor Kit See Rx Instructions .Route Qty: 1 3RF Rx Instructions: As directed once daily ibuprofen 800 mg tablet 800 mg PO TID PRN (Reason: pain) Qty: 20 0RF acetaminophen-codeine 300-30 mg tablet 1 tab PO Q12H PRN (Reason: pain) Qty: 14 0RF hydroxyzine HCl 25 mg tablet 25 mg PO HS PRN (Reason: insom) Qty: 30 0RF (DME) blood pressure monitor [Blood Pressure Kit] Kit See Rx Instructions .Route Qty: 1 0RF Rx Instructions: As directed Referrals: Santiago Saldivar MD [Primary Care Provider] - In 1 week Problem List Clinical Impression: Influenza A, Influenza B Patient/Caregiver Discharge Instructions Discharge Activity: activity as tolerated Education Materials: ED Influenza (Adult) Additional Instructions: Discharge instructions from Dr. Loja: --No physical exertion for 3 days to help rest your lungs. --No smoking and no exposure to smoking or pets or dust or . Humidity. --Tamiflu to kill the influenza germs. --Prednisone to help decrease inflammation of the lungs. --Ibuprofen 400 mg every 8 hours today and tomorrow.? Then as needed for fever or pain. --Tylenol with codeine for severe cough or pain.? --Albuterol 2 puffs every 4-6 hours as needed for cough or shortness or breath.?? --See a private doctor next week if not completely better. --Seek immediate medical care with worsening or with any concerns. Print Language: Hebrew Stand Alone Forms: Monik Award Info., Patient Portal Info Letter
[2024-10-26] MEDS: MORPHINE SULF INJ 10 MG/ML VIAL IM (19:42)
[2024-10-26] MEDS: OSELTAMIVIR 75 MG CAPSULE PO (19:42)
== END 2024-10-26 19:47 | disposition home or self-care (01) ==
PROVIDERS: Nurse Practitioner Family; Emergency Provider Emergency Medicine; PCP Family Medicine
DX: J10.1 Influenza due to other identified influenza virus with other respiratory manifestations (principal); R94.31 Abnormal electrocardiogram [ECG] [EKG]
CPT/HCPCS: 36415; 80053; 80307; 81001; 83615; 83735; 83880; 84484; 85025; 85610; 85730; 87400; 87811; 93005; 96372; 99284; J2270; A9270

== ENCOUNTER 2024-10-31 13:14 | Emergency (ER) | payer MEDICAID, SELFPAY ==
[2024-10-31 13:23] VITALS: PULSE 76; RESP 20; O2SAT 98; BMI 34.9
--- NOTE | 2024-10-31 13:54 | EDNOTE_ITS ---
ED General RME/HPI General Chief complaint: General Adult/Misc Complain Stated complaint: CATHETER PROBLEM Time Seen by Provider: 10/31/24 13:28 Arrival date/time: 10/31/24 13:14 CC: Dialysis shunt in the left anterior chest inadvertently pulled out HPI onset this morning after the patient rolled over . The patient is blind, she sees Dr. Moreland for nephrology. The patient tested positive for influenza A and B approximately 2 to 3 days ago in this emergency room patient currently has no other symptoms. Patient is awake alert requesting antianxiety medication. Related Data Home Medications ?Medication ?Instructions ?Recorded ?Confirmed gabapentin 600 mg tablet 1,200 mg PO TID 06/16/2007/17 Previous Rx's ?Medication ?Instructions ?Recorded insulin syringe-needle U-100 1 mL #100 ea 02/22/20 28 gauge x 1/2 (BD Insulin Syringe) hydroxyzine HCl 25 mg tablet 25 mg PO HS PRN insom #30 tabs 06/06/23 blood pressure monitor (Blood #1 ea 06/28/23 Pressure Kit) flash glucose scanning reader #1 ea 01/13/24 (FreeStyle Zoey 2 Burt) flash glucose sensor (FreeStyle #1 ea 01/13/24 Zoey 2 Sensor kit) insulin glargine 100 unit/mL (3 10 unit (0.1 mL) subcu t QPM #15 mL 01/13/24 mL) subcutaneous pen insulin glargine 100 unit/mL 10 unit (0.1 mL) subcut Q PM #10 mL 01/13/24 subcutaneous solution acetaminophen 300 mg-codeine 30 mg 1 tab PO Q12H PRN p ain #14 tabs 03/04/24 tablet ibuprofen 800 mg tablet 800 mg PO TID PRN pain #20 t abs 03/04/24 acetaminophen 300 mg-codeine 30 mg 2 tab PO Q8H PRN pa in #20 tabs 10/26/24 tablet albuterol sulfate 90 mcg/actuation 2 puff inhalation Q 6H PRN 10/26/24 aerosol inhaler shortness of breath or wheez ing #8.5 grams ibuprofen 400 mg tablet 400 mg PO Q8H PRN pain #30 t abs 10/26/24 ondansetron 4 mg disintegrating 4 mg PO TID PRN nausea and 10/26/24 tablet vomiting 30 days #10 tabs Allergies Allergy/AdvReac Type Severity Reaction Status Date / Time No Known Allergies Allergy Verified 10/31/24 13:26 Review of Systems Review of Systems Narrative Review of Systems: GEN: No fever, no chills, no weight loss EYES: No discharge, no visual changes, no pain HEENT: No ear pain, no congestion, no sore throat PULM: No shortness of breath, no cough, no congestion CV: No chest pain, no dyspnea on exertion, no palpitations GI: No nausea, no vomiting, no diarrhea, no pain, no constipation : No frequency, no urgency, no dysuria MUSC/SKEL: No joint pain, no back pain SKIN: No rash PSYCH: No hallucinations, no depression HEME/LYMPH: No easy bleeding or bruising tendencies NEURO: No weakness, no headache Past Medical History Past Medical History NEUROLOGIC: Negative Neurological Disorders or Seizures CARDIAC: Positive Heart Murmur and Hypertension; Negative Cardiac Disorders or Congestive Heart Failure RESPIRATORY: Positive Asthma; Negative Respiratory Disorders or Chronic Obstructive Pulmonary Disease (COPD) GASTROINTESTINAL: Positive Obesity; Negative Gastrointestinal Disorders GENITOURINARY: Positive Chronic Kidney Disease, Renal Disease and Dialysis REPRODUCTIVE: Positive Previous Pregnancies MUSCULOSKELETAL: Positive Arthritis and Osteomyelitis ENT: Positive Blind ENDOCRINE: Positive Endocrine Disorders and Diabetes Mellitus Type 2; Negative Diabetes Mellitus Type 1 HEMATOLOGIC: Negative Sickle Cell Disease PSYCHO/SOCIAL: Positive Bipolar Disorder, Depression and Anxiety OTHER HISTORY: Positive Hospitalization, Falls, Chicken Pox and Cancer; Negative Autoimmune Disease, Down Syndrome, Developmental Delay, Shingles, Blood Transfusions, Blood Transfusion Reaction, Anesthesia Reactions or Organ Transplant Family History FAMILY HISTORY: Positive Family Cancer; Negative Family Respiratory Disorders, Family Cardiac Disorders, Family Gastrointestinal Problems, Family Surgery or Family Anesthesia Reaction Surgical History SURGICAL: Positive Abdominal Surgery, Amputation and Section; Negative Cardiac Surgery, Nephrectomy or Organ Transplant Social History SMOKING STATUS: Never smoker SECOND HAND EXPOSURE: No SUBSTANCE USE: does not use ED Exam Narrative Physical exam: [General: Obese not in any acute distress Head normocephalic HEENT: Within acceptable limits Neck is supple nontender Chest equal chest rise nontender to palpation Respiratory: Clear to auscultation no wheezes crackles or rubs CV: Rate rhythm is regular no murmurs rubs or clicks Abdomen is distended secondary to body habitus soft nontender no masses positive bowel sounds all 4 quadrants Back: No CVA tenderness no spinous process tenderness from cervical spine thoracic and lumbar spine Skin: Left anterior chest dialysis shunt site clean dry and intact no active oozing. Left arm surgical shunt site clean dry and intact. Surgical site well- healed good thrill. Otherwise skin is intact no petechiae rash induration ulceration or crepitus Extremities: Moving all extremity against resistance cap refill less than 2 seconds neurosensory intact Neuro: Awake alert oriented x3 Glascow coma 15 no focal deficits] Course Course Course Narrative: Patient is approximately 3 weeks away from certification for using the shunt in her left arm, at this time we will contact Dr. Moreland regarding patient's disposition. At 1628, patient's clinical findings clinical presentation discussed with Dr. Nelson who states patient can be discharged home and follow-up in the morning n.p.o. after midnight for catheter placement by radiologist. Quality Measures none Orders Category Date Time Status CBC Stat Lab 10/31/24 14:15 Completed CMP [Comprehensive Metabolic Panel] Stat Lab 10/31/24 14:15 Completed PT [Prothrombin Time with INR] Stat Lab 10/31/24 14:15 Completed PTT [Partial Thromboplastin Time] Stat Lab 10/31/24 14:15 Completed Discharge Plan Plan Patient Disposition: HOME (Self Care) Patient condition on transfer: Stable Prescriptions/Referrals Prescriptions/Med Rec: No Action gabapentin 600 mg Tablet 1,200 mg PO TID (DME) insulin syringe-needle U-100 [BD Insulin Syringe] 1 mL 28 gauge x 1/2 syringe See Rx Instructions .ROUTE .MEDSUPPLY Qty: 100 0RF Rx Instructions: As directed (DME) FreeStyle Zoey 2 Burt Misc See Rx Instructions .Route Qty: 1 2RF Rx Instructions: As directed; once daily insulin glargine 100 unit/mL solution 10 unit subcut QPM Qty: 10 4RF insulin glargine 100 unit/mL (3 mL) insulin pen 10 unit subcut QPM Qty: 15 4RF (DME) FreeStyle Zoey 2 Sensor Kit See Rx Instructions .Route Qty: 1 3RF Rx Instructions: As directed once daily ibuprofen 800 mg tablet 800 mg PO TID PRN (Reason: pain) Qty: 20 0RF acetaminophen-codeine 300-30 mg tablet 1 tab PO Q12H PRN (Reason: pain) Qty: 14 0RF hydroxyzine HCl 25 mg tablet 25 mg PO HS PRN (Reason: insom) Qty: 30 0RF (DME) blood pressure monitor [Blood Pressure Kit] Kit See Rx Instructions .Route Qty: 1 0RF Rx Instructions: As directed acetaminophen-codeine 300-30 mg tablet 2 tab PO Q8H MDD 6 PRN (Reason: pain) Qty: 20 0RF ibuprofen 400 mg tablet 400 mg PO Q8H PRN (Reason: pain) Qty: 30 0RF albuterol sulfate 90 mcg/actuation HFA aerosol inhaler 2 puff inhalation Q6H PRN (Reason: shortness of breath or wheezing) Qty: 8.5 0RF ondansetron 4 mg tablet,disintegrating 4 mg PO TID PRN (Reason: nausea and vomiting) 30 Days Qty: 10 0RF Referrals: No Primary/Family,Physician [Referring Provider] - In 1 week Dominick Moreland MD [Primary Care Provider, Nephrology] - In 1 week Problem List Clinical Impression: Complication, dialysis catheter clot or failure Patient/Caregiver Discharge Instructions Education Materials: [facility] Access Additional Instructions: Return tomorrow at 8 AM to the emergency room no food after midnight for dialysis catheter placement. Print Language: Moroccan Stand Alone Forms: Monik Award Info., Work/School Release, Patient Portal Info Letter PA/BECCA Supervising Physician PA/[employer] Supervising Physician: Salas Brock ENP
[2024-10-31 14:27] LABS: Basophils # (Auto) 0.1 Thou/mm3 (0.0-0.2); Basophils % (Auto) 1 % (0-2.5); Eosinophils # (Auto) 0.3 Thou/mm3 (0.0-0.5); Eosinophils % (Auto) 3 % (0-10); Hematocrit 35.0 % (36.0-46.0); Hemoglobin 10.9 g/dL (12.0-16.0); Immature Granulocytes Auto 0.17 Thou/mm3 (0.00-0.00); Lymphocytes # (Auto) 1.5 Thou/mm3 (1.0-4.8); Lymphocytes % (Auto) 19 % (10-50); Mean Corpuscular HGB Conc 31.1 g/dl (31.0-37.0); Mean Corpuscular Hemoglobin 30.0 pg (25.0-35.0); Mean Corpuscular Volume 96 fL (80-100); Monocytes # (Auto) 1.0 Thou/mm3 (0.0-0.8); Monocytes % (Auto) 13 % (0-12); Neutrophils # (Auto) 4.8 Thou/mm3 (1.8-7.7); Neutrophils % (Auto) 61 % (37-80); Nucleated Red Blood Cell # 0.00 Thou/mm3 (0.00-0.00); Nucleated Red Blood Cell % 0 /100 WBC (0); Platelet Count 266 Thou/mm3 (140-440); RDW Standard Deviation 47.1 fL (36.4-46.3); Red Blood Count 3.63 Miln/mm3 (4.00-5.20); White Blood Count 7.9 Thou/mm3 (3.6-11.0)
[2024-10-31 14:36] LABS: INR 1.0 (0.9-1.3); Partial Thromboplastin Time 24.5 Seconds (22.0-36.0); Prothrombin Time 10.9 Seconds (9.0-12.2)
[2024-10-31 15:03] LABS: Alanine Aminotransferase 553 U/L (10-49); Albumin, Serum 3.8 gm/dL (3.5-5.0); Albumin/Globulin Ratio 1.3 (1.2-2.2); Alkaline Phosphatase 641 U/L (46-116); Anion Gap 12 (7-16); Aspartate Amino Transferase 407 U/L (0-34); BUN/Creatinine Ratio 6 Ratio (12-20); Bilirubin,Total 0.3 mg/dL (0.3-1.2); Blood Urea Nitrogen 44 mg/dL (9-23); Calcium 8.4 mg/dL (8.3-10.6); Calcium (Corrected) 8.6 mg/dL (8.5-10.1); Carbon Dioxide 29.2 mMol/L (20.0-31.0); Chloride 96 mMol/L (98-107); Creatinine (Component) 7.5 mg/dL (0.6-1.3); Estimated Creatinine Clearance 10.1 mL/min (>60); Globulin 2.9 gm/dL (2.3-3.5); Glucose 273 mg/dL (74-106); Osmolality,Calculated 295 (275-295); Potassium 5.0 mMol/L (3.4-5.1); Sodium 137 mMol/L (136-145); Total Protein 6.7 gm/dL (5.7-8.2); eGFR 6 See Note
--- NOTE | 2024-10-31 16:48 | PC.CC ---
Electrical Lineworker supported with coordination of transportation for Pt. Pt requires higher level of transport due to being completely blind. Transport request send out to [place].
== END 2024-10-31 17:45 | disposition home or self-care (01) ==
PROVIDERS: Registered Nurse General Practice; Emergency Provider Emergency Medicine; PCP Internal Medicine
DX: T80.89XA Other complications following infusion, transfusion and therapeutic injection, initial encounter (principal); Y92.89 Other specified places as the place of occurrence of the external cause
CPT/HCPCS: 36415; 80053; 85025; 85610; 85730; 99283

== ENCOUNTER 2024-11-08 04:18 | Emergency (ER) | payer MEDICAID, SELFPAY ==
[2024-11-08] VITALS (29 sets, daily range): BP systolic 98–168; BP diastolic 62–104; PULSE 57–79; RESP 14–19; TEMP 36.8–37.6; O2SAT 94–100; BMI 35.9
--- NOTE | 2024-11-08 | XR_ITS ---
Ultrasound-guided needle placement right subclavian vein Permanent tunneled dialysis catheter insertion, percutaneous Fluoroscopy AP chest, portable, single view. Date and time of procedure: November 08, 2024 0857 hours INDICATIONS: Patients permanent tunneled dialysis catheter pulled out, needs status and long-term dialysis Informed consent provided Technique: A timeout was completed verifying correct patient, procedure, site, positioning, and special equipment if applicable. The patient was placed in a dependent position appropriate for dialysis catheter placement based on the vein to be cannulated. The patient'sright chest and neck was prepped and draped in sterile fashion. Maximum Sterile Barrier Technique used including cap, mask, sterile gown, sterile gloves, and sterile full body drape. If ultrasound technique used: sterile gel and sterile probe covers. Hand Hygiene performed using proper scrub, soap and water, or alcohol-based hand rub. 1% lidocaine was used to anesthetize the surrounding skin area The [employer] portable ultrasound apparatus utilized to confirm patency of the right subclavian vein Utilizing ultrasonographic guidance successful 21-gauge needle puncture right subclavian vein Ultrasound images were recorded and stored. Vessel micropuncture was performed with 21-gauge needle. 0.18 wire guide is introduced into the vein. 0.18 wire is introduced into the vena cava under fluoroscopy. Subcutaneous tunnel formed in the upper chest. Permanent tunneled dialysis catheter placed in the subcutaneous tunnel. Dilators were introduced over the J-wire guide. Tunneled dialysis catheter is introduced through a dilator with venous sheath into the superior vena cava under fluoroscopic guidance. The catheter is sutured in place to the skin and a sterile dressing applied. Perfusion to the extremity distal to the point of catheter insertion is checked and found to be adequate Attending radiologist was present for the entire procedure Estimated blood loss2 cc. The patient tolerated the procedure well and there were no complications Impression: Successful ultrasound-guided needle placement right subclavian vein Successful permanent tunneled dialysis catheter insertion, percutaneous Fluoroscopy 0.3 minute radiation dose 1.88 milligray 1 spot fluoroscopic chest film. AP chest performed at completion procedure demonstrates satisfactory position dialysis catheter. May use dialysis catheter.
--- NOTE | 2024-11-08 04:27 | EKG_ITS ---
[facility] Test Date: 2024-11-08 Pat Name: ARVIN FUNEZ Department: Room: - Gender: Female Surveillance Agent: : [id number] Requested By: Campos Smyth Order Number: [id number] Reading MD: Campos Smyth Measurements Intervals [place] Rate: 76 P: 52 AL: 162 QRS: 38 QRSD: 77 T: 50 QT: 378 QTc: 426 Interpretive Statements SINUS RHYTHM LOW QRS VOLTAGE IN PRECORDIAL LEADS [QRS DEFLECTION < 1.0 mV IN CHEST LEADS] Compared to ECG 10/26/2024 16:50:41 Myocardial infarct finding no longer present /store/[id number]/ecg/[id number].pdf
--- NOTE | 2024-11-08 04:38 | EDNOTE_ITS ---
ED General RME/HPI General Chief complaint: General Adult/Misc Complain Stated complaint: CATHETER ISSUES Time Seen by Provider: 11/08/24 04:40 Arrival date/time: 11/08/24 04:18 RME / HPI RME / HPI narrative: Dr. Vernon?s Main ED Evaluation: 49yo female with a history ESRD/DM/HTN presenting after noting that her left subclavian tunneled dialysis catheter had been removed this AM. No chest pain, shortness of breath, lightheadedness, or dizziness. 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 Related Data Home Medications ?Medication ?Instructions ?Recorded ?Confirmed gabapentin 600 mg tablet 1,200 mg PO TID 06/16/2007/17 Previous Rx's ?Medication ?Instructions ?Recorded insulin syringe-needle U-100 1 mL #100 ea 02/22/20 28 gauge x 1/2 (BD Insulin Syringe) hydroxyzine HCl 25 mg tablet 25 mg PO HS PRN insom #30 tabs 06/06/23 blood pressure monitor (Blood #1 ea 06/28/23 Pressure Kit) flash glucose scanning reader #1 ea 01/13/24 (FreeStyle Zoey 2 Alice) flash glucose sensor (FreeStyle #1 ea 01/13/24 Zoey 2 Sensor kit) insulin glargine 100 unit/mL (3 10 unit (0.1 mL) subcu t QPM #15 mL 01/13/24 mL) subcutaneous pen insulin glargine 100 unit/mL 10 unit (0.1 mL) subcut Q PM #10 mL 01/13/24 subcutaneous solution acetaminophen 300 mg-codeine 30 mg 1 tab PO Q12H PRN p ain #14 tabs 03/04/24 tablet ibuprofen 800 mg tablet 800 mg PO TID PRN pain #20 t abs 03/04/24 acetaminophen 300 mg-codeine 30 mg 2 tab PO Q8H PRN pa in #20 tabs 10/26/24 tablet albuterol sulfate 90 mcg/actuation 2 puff inhalation Q 6H PRN 10/26/24 aerosol inhaler shortness of breath or wheez ing #8.5 grams ibuprofen 400 mg tablet 400 mg PO Q8H PRN pain #30 t abs 10/26/24 ondansetron 4 mg disintegrating 4 mg PO TID PRN nausea and 10/26/24 tablet vomiting 30 days #10 tabs Allergies Allergy/AdvReac Type Severity Reaction Status Date / Time No Known Allergies Allergy Verified 10/31/24 13:26 Review of Systems Review of Systems Systems Reviewed: All systems reviewed, normal except as documented ED Exam Narrative Physical exam: GENERAL APPEARANCE: alert and oriented x 4, chronically-ill appearing, no acute distress VITALS: All vitals were reviewed and the pulse ox is % on room air, which is normal according to my interpretation. 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 NEUROLOGIC: awake; alert and oriented x4; cranial nerves II-XII grossly intact; no focal sensory or motor deficits PSYCHIATRIC: appropriate mood and affect SKIN: warm, dry, normal color; no rashes Course Quality Measures none Orders Category Date Time Status EKG (ED ONLY) *Do not use* NOW Care 11/08/24 04:27 Completed EKG (ED Only) Stat Exams 11/08/24 04:27 Draft XR chest 1V portable Stat Exams 11/08/24 04:48 Taken CBC [CBC] Stat Lab 11/08/24 05:15 Completed CMP [Comprehensive Metabolic Panel] Stat Lab 11/08/24 05:15 Received Magnesium Stat Lab 11/08/24 05:15 Received Urinalysis, C/S if Indicated Stat Lab 11/08/24 05:13 Received Vital Signs Vital signs: Vital Signs Temperature 99.7 F 11/08/24 04:43 Pulse Rate 78 11/08/24 04:43 Respiratory Rate 18 11/08/24 04:43 Blood Pressure 135/72 H 11/08/24 04:43 Pulse Oximetry (%) 96 11/08/24 04:43 Oxygen Delivery Method Room Air 11/08/24 04:43 Discharge Plan Prescriptions/Referrals Prescriptions/Med Rec: No Action gabapentin 600 mg Tablet 1,200 mg PO TID (DME) insulin syringe-needle U-100 [BD Insulin Syringe] 1 mL 28 gauge x 1/2 syringe See Rx Instructions .ROUTE .MEDSUPPLY Qty: 100 0RF Rx Instructions: As directed (DME) FreeStyle Zoey 2 Alice Misc See Rx Instructions .Route Qty: 1 2RF Rx Instructions: As directed; once daily insulin glargine 100 unit/mL solution 10 unit subcut QPM Qty: 10 4RF insulin glargine 100 unit/mL (3 mL) insulin pen 10 unit subcut QPM Qty: 15 4RF (DME) FreeStyle Zoey 2 Sensor Kit See Rx Instructions .Route Qty: 1 3RF Rx Instructions: As directed once daily ibuprofen 800 mg tablet 800 mg PO TID PRN (Reason: pain) Qty: 20 0RF acetaminophen-codeine 300-30 mg tablet 1 tab PO Q12H PRN (Reason: pain) Qty: 14 0RF hydroxyzine HCl 25 mg tablet 25 mg PO HS PRN (Reason: insom) Qty: 30 0RF (DME) blood pressure monitor [Blood Pressure Kit] Kit See Rx Instructions .Route Qty: 1 0RF Rx Instructions: As directed acetaminophen-codeine 300-30 mg tablet 2 tab PO Q8H MDD 6 PRN (Reason: pain) Qty: 20 0RF ibuprofen 400 mg tablet 400 mg PO Q8H PRN (Reason: pain) Qty: 30 0RF albuterol sulfate 90 mcg/actuation HFA aerosol inhaler 2 puff inhalation Q6H PRN (Reason: shortness of breath or wheezing) Qty: 8.5 0RF ondansetron 4 mg tablet,disintegrating 4 mg PO TID PRN (Reason: nausea and vomiting) 30 Days Qty: 10 0RF Referrals: Santiago Saldivar MD [Primary Care Provider, Family Practice] - In 1 week Problem List Clinical Impression: Complication, dialysis catheter clot or failure Patient/Caregiver Discharge Instructions Print Language: Andorran MDM Narrative [facility] hospital course: Scribe Attestation: 11/08/24 Sherrill Colon am scribing for and in the presence of Dr. Vernon. 49yo female with a history ESRD/DM/HTN presenting after noting that her left subclavian tunneled dialysis catheter had been removed this AM. No chest pain, shortness of breath, lightheadedness, or dizziness. Please see PE findings. Lab markers pending. EKG shows mildly peaked T-waves in lateral leads, suggestive of early hyperkalemia. Patient clinically stable and will require replacement catheter as she is scheduled for dialysis today. Please see AM physician's note for final disposition. Dx: dislodged dialysis catheter Clinical Information Provided by patient Medical Records Reviewed [facility] (Per chart review, patient was seen here on 10/31/24 for complication of dialysis catheter.) and EMS Meds/Rx Considered, not Ordered None Labs/Rad/Tests considered, not Ordered None Chronic Illness/Social Conditions Add or document further as needed: Hx ESRD on HD EKG EKG Interpretation narrative: EKG done at 0430, sinus rhythm, rate of 76, no acute pathological ST segment changes, no ectopy, normal intervals, left axis deviation, according to my interpretation. Lab Interpretation Labs: interpreted by me Lab(s) interpretation(s): Pending at signout. Imaging Imaging interpretation: interpreted by nh Provider imaging interpretation(s): CXR pending at signout. Medication Administration(s) none Diagnosis Differential diagnosis: dislodged dialysis catheter, dialysis catheter malfunction,clogged catheter Most likely dx, and/or detailed dx discussion: see clinical impression below Dispositon Disposition: other (Signed out to Dr. Bourgeois at 6 AM. )
--- NOTE | 2024-11-08 04:48 | XR_ITS ---
Examination: AP chest single view Technique: AP portable chest single view Date and time: November 08, 2024, 0526 hrs., Comparison September 19, 2024 Indications: Shortness of breath today. Findings: Mild prominence cardiac contour. No pneumothorax, pneumonia or pulmonary edema Mild osteopenia Impression: No pneumothorax, pneumonia or pulmonary edema
[2024-11-08 05:19] LABS: Collection Type, Urine Clean Catch
[2024-11-08 05:22] LABS: Basophils # (Auto) 0.1 Thou/mm3 (0.0-0.2); Basophils % (Auto) 0 % (0-2.5); Eosinophils # (Auto) 0.0 Thou/mm3 (0.0-0.5); Eosinophils % (Auto) 0 % (0-10); Hematocrit 31.8 % (36.0-46.0); Hemoglobin 10.2 g/dL (12.0-16.0); Immature Granulocytes Auto 0.47 Thou/mm3 (0.00-0.00); Lymphocytes # (Auto) 0.6 Thou/mm3 (1.0-4.8); Lymphocytes % (Auto) 3 % (10-50); Mean Corpuscular HGB Conc 32.1 g/dl (31.0-37.0); Mean Corpuscular Hemoglobin 30.5 pg (25.0-35.0); Mean Corpuscular Volume 95 fL (80-100); Monocytes # (Auto) 0.7 Thou/mm3 (0.0-0.8); Monocytes % (Auto) 4 % (0-12); Neutrophils # (Auto) 15.6 Thou/mm3 (1.8-7.7); Neutrophils % (Auto) 90 % (37-80); Nucleated Red Blood Cell # 0.00 Thou/mm3 (0.00-0.00); Nucleated Red Blood Cell % 0 /100 WBC (0); Platelet Count 282 Thou/mm3 (140-440); RDW Standard Deviation 48.4 fL (36.4-46.3); Red Blood Count 3.34 Miln/mm3 (4.00-5.20); White Blood Count 17.4 Thou/mm3 (3.6-11.0)
[2024-11-08 05:57] LABS: Bilirubin,Urine Negative (Negative); Blood,Urine Trace (Negative); Clarity,Urine Turbid (Clear/Hazy); Color,Urine Lt-Yellow (Lt Yel-Yel); Culture Indicated,Urine Not Indicated; Glucose, Urine 4+ (Negative); Ketones,Urine Negative (Negative); Leukocyte Esterase,Urine Negative (Negative); Nitrite,Urine Negative (Negative); PH,Urine 6.5 (5.0-7.0); Protein,Urine 3+ (Neg - Trace); RBC,Urine 2 /hpf (0-3); Specific Gravity,Urine 1.017 (1.001-1.035); Squamous Epithelial Cell,Urine 16 /hpf (0-5); Urobilinogen,Urine Negative mg/dL (0.0-1.0); WBC,Urine 5 /hpf (0-5)
[2024-11-08 06:08] LABS: Alanine Aminotransferase 21 U/L (10-49); Albumin, Serum 3.8 gm/dL (3.5-5.0); Albumin/Globulin Ratio 1.4 (1.2-2.2); Alkaline Phosphatase 299 U/L (46-116); Anion Gap 13 (7-16); Aspartate Amino Transferase 22 U/L (0-34); BUN/Creatinine Ratio 8 Ratio (12-20); Bilirubin,Total 0.3 mg/dL (0.3-1.2); Blood Urea Nitrogen 70 mg/dL (9-23); Calcium 8.6 mg/dL (8.3-10.6); Calcium (Corrected) 8.8 mg/dL (8.5-10.1); Carbon Dioxide 25.9 mMol/L (20.0-31.0); Chloride 94 mMol/L (98-107); Creatinine (Component) 8.6 mg/dL (0.6-1.3); Estimated Creatinine Clearance 9.0 mL/min (>60); Globulin 2.7 gm/dL (2.3-3.5); Glucose 278 mg/dL (74-106); Magnesium 2.6 mg/dL (1.6-2.6); Osmolality,Calculated 296 (275-295); Sodium 133 mMol/L (136-145); Total Protein 6.5 gm/dL (5.7-8.2); eGFR 5 See Note
--- NOTE | 2024-11-08 06:08 | PC.NURSE ---
Received order from Rachel for morphine ivp 4mg once and Zofran 4mg ivp once for chronic back pain.
[2024-11-08] MEDS: ONDANSETRON INJ 2 MG/ML INJ 2 ML 4 MG IVP ×2 (06:11→19:26)
[2024-11-08] MEDS: MORPHINE SULF INJ 4 MG/ML VIAL IVP ×2 (06:12→19:27)
[2024-11-08 06:16] LABS: Potassium 6.8 mMol/L (3.4-5.1)
[2024-11-08] MEDS: SOD POLYSTYRENE SULFON SUSP 15 GM/60 ML BTL 30 GM PO (06:36)
[2024-11-08] MEDS: DEXTROSE 50%-WATER INJ 50 ML SYRINGE IVP (06:37)
[2024-11-08] MEDS: INSULIN HUM REGULAR 1 UNIT/0.01 ML (PER UNIT) 5 UNIT IV (06:39)
[2024-11-08 06:42] LABS: Lactate (Lactic Acid) 1.0 mMol/L (0.4-2.0)
--- NOTE | 2024-11-08 06:53 | PC.NURSE ---
clarified dextrose order with Dr. Manriquez to give amp of dextrose with glucose 249-possibly more insulin required for potassium.
--- NOTE | 2024-11-08 07:00 | PC.LAC ---
No active bleeding to left chest, clean dry and intact dressing present
[2024-11-08 07:10] LABS: Procalcitonin 0.65 ng/ml (0.0-0.49)
--- NOTE | 2024-11-08 07:15 | PC.NURSE ---
REPORT RECEIVED FROM NOC SHIFT RN. PT RESTING COMFORTABLY IN ROOM W/O ANY S/SX OF DISTRESS OR DISCOMFORT. VSS. WILL CONT TO MONITOR.
[2024-11-08] MEDS: HYDROcodone/APAP 5/325 TABLET 1 TAB PO (08:01)
--- NOTE | 2024-11-08 08:34 | PC.NURSE ---
ATTEMPTED TO CALL IR PER DR. REBOLLEDO'S REQUEST. TRIED CALLING TWICE BUT NO ANSWER. WILL CONT TO CALL.
--- NOTE | 2024-11-08 08:38 | PC.NURSE ---
CALL FROM MIRTA IN DIALYSIS RE: WHEN PT'S VAS CATH WAS GOING TO BE PUT BACK IN. I TOLD HER I HAD BEEN TRYING TO REACH THEM BUT THERE WAS NO ANSWER. SHE TRIED CALLING AND GOT THROUGH. SHE CALLED ME BACK AND SAID DR. PANG COMES IN AT 0900 AND ARVIN WOULD BE THE FIRST ONE DONE. DR. REBOLLEDO INFORMED.
--- NOTE | 2024-11-08 08:45 | PC.NURSE ---
WANDA CALLED FROM IR FOR REPORT. REPORT GIVEN.
[2024-11-08 08:53] LABS: INR 1.0 (0.9-1.3); Partial Thromboplastin Time 29.1 Seconds (22.0-36.0); Prothrombin Time 11.1 Seconds (9.0-12.2)
[2024-11-08] MEDS: HEPARIN SOD LOCK SYR 100 UNIT/ML 500 UNIT STFIELD (10:08)
[2024-11-08] MEDS: fentaNYL CIT INJ 50 mCg/ML AMP 2ML 100 MCG IVP (10:08)
[2024-11-08] MEDS: LIDOCAINE INJ PF 1% 30 ML VIAL 15 ML EPID (10:08)
--- NOTE | 2024-11-08 10:11 | PD.EDADDENDU ---
Emergency Room Addendum Addendum Narrative: 0600: Care assumed from Dr. Sandhu, the previous shift emergency physician. Past medical, surgical, social and family history reviewed. Vitals and home medications reviewed. I will assume the care of the patient at this time, pending IR dialysis catheter placement and final disposition. Please refer to the emergency department record for history and examination from initial visit.?The following addendum documentation note is intended to reflect any pending information, findings, or radiology results not included in the patient?s initial chart. 1105: On reassessment, patient complains of pain to her left lower back/buttock area. 1120: I spoke with patients claim administrator Dr. Moreland. Discussed patients HPI, ED course, exam findings, labs, and radiology results. States she will place order for the patient to get dialyzed here. 1615: Patient has returned from dialysis. Will DC home.
[2024-11-08] MEDS: HEPARIN SOD INJ 1000 UNIT/ML VIAL 3800 UNIT INDWELLCAT (10:27)
--- NOTE | 2024-11-08 10:29 | PC.NURSE ---
RECEIVED REPORT FROM WANDA ESTRADA IN IR. PT TO RETURN TO ER IN 15 MINUTES OR SO.
--- NOTE | 2024-11-08 11:59 | PC.NURSE ---
MIRTA ESTRADA TAKING PT TO DIALYSIS [facility]IA [facility]. CALLED DIETARY FOR PT'S LUNCH TRAY TO BE TAKEN TO ROOM #309. THEY WILL TAKE IT TO PT IN DIALYSIS.
[2024-11-08] MEDS: ALBUMIN HUMAN 25% IVPB 25 GM/100 ML BTL IV (12:45)
--- NOTE | 2024-11-08 12:51 | PC.NURSE ---
BP TRENDING DOWN, PT DENIES ALL S/S OF HYPOTENSION WILL ADMIN PRN ALBUMIN AND CONT. TO MONITOR
--- NOTE | 2024-11-08 13:24 | PD.NEPHCONS ---
Documented by User: Dominick Moreland MD 11/08/24 21:14 History of Present Illness Data of Consult Consult date: 11/08/24 Primary Care Provider: Santiago Saldivar MD Consult Narrative Reason for consult: ESRD, hyperkalemia need for dialysis cc:: cc: Meds Home Medications and Allergies Home Medications ?Medication ?Instructions ?Recorded ?Confirmed ?Type gabapentin 600 mg tablet 1,200 mg PO TID 06/16/20 12/30/23 History Allergies Allergy/AdvReac Type Severity Reaction Status Date / Time No Known Allergies Allergy Verified 10/31/24 13:26 Exam Vital Signs Temp Pulse Resp BP Pulse Ox O2 Del Method O2 Flow Rate 36.9 C 67 18 130/76 94 L Nasal Cannula 2 11/08/24 11:45 11/08/24 13:15 11/08/24 11:45 11/08/24 13:15 11/08/24 11:45 11/08/24 10:23 11/08/24 10:23 Results Labs 11/08/24 05:15 11/08/24 05:15 Labs: Short CBC 11/08/24 Range/Units 05:15 WBC 17.4 H (3.6-11.0) Thou/mm3 Hgb 10.2 L (12.0-16.0) g/dL Hct 31.8 L (36.0-46.0) % Plt Count 282 (140-440) Thou/mm3 BMP 11/08/24 05:15 Sodium 133 L Potassium 6.8 H* Chloride 94 L Carbon Dioxide 25.9 BUN 70 H Creatinine 8.6 H* Glucose 278 H Calcium 8.6 Liver Function 11/08/24 Range/Units 05:15 Total Bilirubin 0.3 (0.3-1.2) mg/dL AST 22 (0-34) U/L ALT 21 (10-49) U/L Alkaline Phosphatase 299 H (46-116) U/L Albumin 3.8 (3.5-5.0) gm/dL Urine 11/08/24 Range/Units 05:13 Urine Color Lt-Yellow (Lt Yel-Yel) Urine Clarity Turbid A (Clear/Hazy) Urine pH 6.5 (5.0-7.0) Ur Specific [place] 1.017 (1.001-1.035) Urine Protein 3+ A (Neg - Trace) Urine Glucose (UA) 4+ A (Negative) Assessment & Plan Additional Assessment & Plan Additional Plan: 49y/o F with PMH of insulin-dependent diabetes, hypertension, kidney cancer status post nephrectomy, diabetic foot ulcer status post amputations presented to the hospital in 11/08/2024 after her dialysis catheter has been dislodged. Patient has been consulted by ED for management of ESRD on hemodialysis. After TDC placement, patient will receive hemodialysis and get discharged. #ESRD on hemodialysis. #Tunneled Dialysis Catheter insertion. -On admission: Cr: 8.6 eGFR: 5, BUN: 70 -Patient's hemodialysis schedule is MW -CXR: No pneumothorax, pneumonia or pulmonary edema -Hemodialysis sessions: 11/08 -Permanent Tunneled Dialysis Catheter has been placed via right subclavian vein Plan: -Monitor renal function -Maintain fluid restriction, avoid nephrotoxic agents when possible, renally dose medications -Strict i and o -Hemodialysis per schedule #HTN #Diabetes -In admission, BP:135/72, Glucose lv: 278 Plan: -Continue home medication. Assessment and plan discussed with my attending physician Dr. Merly Enrique (PGY-1)- Internal medicine resident Patient seen and examined with resident physician Dr. Enrique. Note reviewed, agree with findings and recommendations. Postop catheter placement. Patient currently seen on dialysis. Tolerating dialysis without any problems. Hemodialysis for 3 hours, 2K, ultrafiltration 2-3 L, Epogen 6000, no heparin ordered. Plan of care discussed with the dialysis nurse. Please see dialysis flowsheet for further details. Kevin given for anxiety. Thank you Dr. Bourgeois for allowing me to participate in the care of Ms. Costa Kevin given for anxiety. Documented by User: Merced Enrique DO 11/08/24 15:21 History of Present Illness Consult Narrative History of present illness: History of Present Illness: 49y/o F with PMH of insulin-dependent diabetes, hypertension, kidney cancer status post nephrectomy, diabetic foot ulcer status post amputations presented to the hospital in 11/08/2024 after her dialysis catheter has been dislodged. She noted that in the morning while in the bathroom she realized there was blood coming out near her catheter insertion site, which she got from [facility] several days ago. She realized that her catheter has been dislodged and promptly came to the ED. Similar event happened on May 2024. Denies chest pain, palpation, SOB, abdominal pain, N/V, fevers or chills. Per record, patient's hemodialysis sessions are MWF. Patient has been consulted by ED for management of ESRD on hemodialysis. After TDC placement, patient will receive hemodialysis and get discharged. ED course: Labs: BP: 135/72 CBC, grossly unremarkable. K+ 6.8, BUN:70, Cr:8.6, eGFR:5, Procalcitonin:0.65 UA: Turbid Yellow urine color, Urine Protein:3+, Urine Glucose:4+ EKG (11/08/2024): show normal sinus rhythm with mildly peaked T waves in lateral leads. Permanent Tunneled Dialysis Catheter has been placed via right subclavian vein Medical history: As stated above Surgical history: Amputation, , abdominal surgery Allergies: See list in the EMR Medications: Pending official med rec Family history: cancer in family Social history: Denies smoking cigarettes, drinking alcohol or using other illicit drugs 11/08/2024: Labs reviewed and patient examined at the dialysis. Patient is tired and sleepy. Limitations to obtaining accurate history. Patients has no other complaints. K+ 6.8, BUN:70, Cr:8.6, eGFR:5. Currently receiving hemodialysis. Will get dischaged after fininshing hemodialysis. Review of Systems Review of Systems Narrative Review of Systems: All 12 systems assessed and the patient denies unless otherwise stated in HPI Meds Home Medications and Allergies Home Medications ?Medication ?Instructions ?Recorded ?Confirmed ?Type gabapentin 600 mg tablet 1,200 mg PO TID 06/16/20 12/30/23 History Allergies Allergy/AdvReac Type Severity Reaction Status Date / Time No Known Allergies Allergy Verified 10/31/24 13:26 Exam Narrative Exam General: No acute distress, well nourished, AAO x3 Eye: normal conjunctiva, no scleral icterus HENT: Normocephalic, atraumatic, hearing intact to conversation at normal volume, moist oral mucosa Neck: Supple, non-tender, no JVD, no lymphadenopathy Lungs: Non-labored respirations, symmetric chest rise, Clear to auscultate bilaterally, No wheezing, rhonchi, crackles Heart: Peripheral pulses intact bilaterally, Regular Rate and Rhythm. Abdomen: Soft, non-tender, non-distended, no palpable masses Musculoskeletal: Normal range of motion and strength, No cyanosis or edema, No visible joint swelling Skin: Skin is warm, dry, no rashes or lesions. Psychiatric: Cooperative, appropriate mood and affect,not agitated Neuro: Cranial nerves II-XII grossly intact. Sensations intact to light touch. Results Labs 11/08/24 05:15 11/08/24 05:15 Assessment & Plan Additional Assessment & Plan Additional Plan: 49y/o F with PMH of insulin-dependent diabetes, hypertension, kidney cancer status post nephrectomy, diabetic foot ulcer status post amputations presented to the hospital in 11/08/2024 after her dialysis catheter has been dislodged. Patient has been consulted by ED for management of ESRD on hemodialysis. After TDC placement, patient will receive hemodialysis and get discharged. #ESRD on hemodialysis. #Tunneled Dialysis Catheter insertion. -On admission: Cr: 8.6 eGFR: 5, BUN: 70 -Patient's hemodialysis schedule is [facility] -CXR: No pneumothorax, pneumonia or pulmonary edema -Hemodialysis sessions: 11/08 -Permanent Tunneled Dialysis Catheter has been placed via right subclavian vein Plan: -Monitor renal function -Maintain fluid restriction, avoid nephrotoxic agents when possible, renally dose medications -Strict i and o -Hemodialysis per schedule #HTN #Diabetes -In admission, BP:135/72, Glucose lv: 278 Plan: -Continue home medication. Assessment and plan discussed with my attending physician Dr. Merly Enrique (PGY-1)- Internal medicine resident
[2024-11-08] MEDS: EPOETIN ALFA-EPBX INJ 10,000 UNIT/ML VIAL (ESRD) 10000 UNIT SC (15:22)
[2024-11-08] MEDS: HEPARIN SOD INJ 1000 UNIT/ML VIAL 10 ML 3800 UNIT INDWELLCAT (16:18)
--- NOTE | 2024-11-08 16:20 | PC.NURSE ---
REPORT RECEIVED FROM [facility]. PT HAS 2L OF FLUID REMOVED OVER 3.5 HRS. SHE WAS GIVEN ALBUMIN, BENADRYL, & RETACRIT. VSS. PT RESTING COMFORTABLY IN ROOM.
== END 2024-11-08 19:49 | disposition home or self-care (01) ==
PROVIDERS: Emergency Medicine; Radiology Diagnostic Radiology; Emergency Provider Emergency Medicine; PCP Family Medicine
DX: T82.42XA Displacement of vascular dialysis catheter, initial encounter (principal); I12.0 Hypertensive chronic kidney disease with stage 5 chronic kidney disease or end stage renal disease; E11.22 Type 2 diabetes mellitus with diabetic chronic kidney disease; N18.6 End stage renal disease; R06.02 Shortness of breath; Y84.1 Kidney dialysis as the cause of abnormal reaction of the patient, or of later complication, without mention of misadventure at the time of the procedure; Z79.4 Long term (current) use of insulin
CPT/HCPCS: 36558; 36415; 71045; 76937; 77001; 80053; 81001; 83605; 83735; 84145; 85025; 85610; 85730; 87040; 90935; 93005; 96372; 96374; 96375; 96376; 99284; C1750; C1894; J1200; J1642; J1643; J1815; J2270; J2405; J3010; J3490; J7050; P9047; Q5105; A9270; G0257

== ENCOUNTER 2024-11-10 17:48 | Emergency (ER) | payer MEDICAID, SELFPAY ==
[2024-11-10 18:16] VITALS: BP 154/76; PULSE 75; RESP 16; TEMP 36.9; O2SAT 98; BMI 36.1
[2024-11-10 18:22] VITALS: O2SAT 90
--- NOTE | 2024-11-10 18:23 | EKG_ITS ---
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1975 Requested By: Jean-Claude Espinoza Order Number: [id number] Reading MD: Jean-Claude Espinoza Measurements Intervals [place] Rate: 75 P: 41 [place]: 214 QRS: 32 QRSD: 81 T: 56 QT: 419 QTc: 469 Interpretive Statements SINUS RHYTHM WITH FIRST DEGREE AV BLOCK POSSIBLE ANTERIOR MYOCARDIAL INFARCTION , OF INDETERMINATE AGE [30 ms Q WAVE IN V3/V4, OR R < 0.2 mV IN V4] MODERATE T-WAVE ABNORMALITY, CONSIDER LATERAL ISCHEMIA [-0.1+ mV T-WAVE IN I/aVL/V5/V6] Compared to ECG 11/08/2024 04:30:59 First degree AV block now present Myocardial infarct finding now present T-wave abnormality now present Possible ischemia now present /store/S0/[id number].pdf
--- NOTE | 2024-11-10 18:24 | EDNOTE_ITS ---
Altered Mental Status RME/HPI General Chief Complaint: Altered Mental Status Stated Complaint: AMS Time Seen by Provider: 11/10/24 18:17 Arrival date/time: 11/10/24 17:48 RME / HPI RME / HPI narrative: DR. SHAY MAIN ED EVALUATION: 49 y/o female with Hx of HTN and ESRD with dialysis treatment [facility] from [facility] presents to ED for stated complaint of AMS just [employer]. Patient completed dialysis treatment, but does not recall any memory of it. She also does not recall being confused. Patient is now c/o chronic left-sided musculoskeletal pain that she states began when diagnosed with influenza 2 weeks ago at this ED. Denies any vomiting or LOC. Patient still produces urine and reports urinating twice a day. No other concerns or complaints expressed at this time. Related Data Home Medications ?Medication ?Instructions ?Recorded ?Confirmed gabapentin 600 mg tablet 1,200 mg PO TID 06/16/2007/17 Previous Rx's ?Medication ?Instructions ?Recorded insulin syringe-needle U-100 1 mL #100 ea 02/22/20 28 gauge x 1/2 (BD Insulin Syringe) hydroxyzine HCl 25 mg tablet 25 mg PO HS PRN insom #30 tabs 06/06/23 blood pressure monitor (Blood #1 ea 06/28/23 Pressure Kit) flash glucose scanning reader #1 ea 01/13/24 (FreeStyle Zoey 2 Driggs) flash glucose sensor (FreeStyle #1 ea 01/13/24 Zoey 2 Sensor kit) insulin glargine 100 unit/mL (3 10 unit (0.1 mL) subcu t QPM #15 mL 01/13/24 mL) subcutaneous pen insulin glargine 100 unit/mL 10 unit (0.1 mL) subcut Q PM #10 mL 01/13/24 subcutaneous solution acetaminophen 300 mg-codeine 30 mg 1 tab PO Q12H PRN p ain #14 tabs 03/04/24 tablet ibuprofen 800 mg tablet 800 mg PO TID PRN pain #20 t abs 03/04/24 acetaminophen 300 mg-codeine 30 mg 2 tab PO Q8H PRN pa in #20 tabs 10/26/24 tablet albuterol sulfate 90 mcg/actuation 2 puff inhalation Q 6H PRN 10/26/24 aerosol inhaler shortness of breath or wheez ing #8.5 grams ibuprofen 400 mg tablet 400 mg PO Q8H PRN pain #30 t abs 10/26/24 ondansetron 4 mg disintegrating 4 mg PO TID PRN nausea and 10/26/24 tablet vomiting 30 days #10 tabs Allergies Allergy/AdvReac Type Severity Reaction Status Date / Time No Known Allergies Allergy Verified 11/10/24 18:38 Review of Systems Review of Systems Systems Reviewed: All systems reviewed, normal except as documented Past Medical History Past Medical History CARDIAC: Positive Heart Murmur and Hypertension RESPIRATORY: Positive Asthma GASTROINTESTINAL: Positive Obesity GENITOURINARY: Positive Renal Disease and Dialysis MUSCULOSKELETAL: Positive Arthritis and Osteomyelitis ENT: Positive Blind ENDOCRINE: Positive Endocrine Disorders and Diabetes Mellitus Type 2 PSYCHO/SOCIAL: Positive Bipolar Disorder, Depression and Anxiety OTHER HISTORY: Positive Hospitalization, Falls, Chicken Pox and Cancer Family History FAMILY HISTORY: Positive Family Cancer Surgical History SURGICAL: Positive Abdominal Surgery, Amputation and Section ED Exam Narrative Physical exam: Generally patient is alert oriented x 3 and in no obvious distress, chest shows a right upper chest dialysis Vas-Cath in place, heart regular rate and rhythm, lungs clear to auscultation equal bilaterally, abdomen is obese soft bowel sounds present nondistended nontender neurologic exam patient has Sheree Coma Scale of 15 without focal motor deficit. Course Quality Measures none Orders Category Date Time Status EKG (ED ONLY) *Do not use* NOW Care 11/10/24 18:23 Completed EKG (ED Only) Stat Exams 11/10/24 18:23 Ordered BMP [Basic Metabolic Panel] Stat Lab 11/10/24 18:30 Completed CBC Stat Lab 11/10/24 18:30 Completed Morphine* Inj Med 11/10/24 18:23 Discontinued 5 mg IM X1 ONE Vital Signs Vital signs: Vital Signs Temperature 98.4 F 11/10/24 18:16 Pulse Rate 75 11/10/24 18:16 Respiratory Rate 16 11/10/24 18:16 Blood Pressure 154/76 H 11/10/24 18:16 Pulse Oximetry (%) 98 11/10/24 18:16 Oxygen Delivery Method Room Air 11/10/24 18:16 Altered Mental Status MDM Narrative MDM Narrative:: Scribe Attestation: I, Birgit Philip, am scribing for and in the presence of Dr. Shay. Provider Notation: Although this document has been carefully reviewed, there may still be some phonetic and other typographical errors. These errors are purely grammatical due to imperfections in the software program and should not be construed in any way to compromise the substance of the patient's medical care during this visit. I interpreted all labs. Potassium is normal. There is a slight leukocytosis however the patient has a history of a leukocytosis. She was diagnosed with influenza A and B approximately 2 weeks ago. She feels as if she is still getting over it. She complains of her typical left-sided body pain involving her left buttock and left lower extremity. She complains of overall body aching. She requests morphine for pain. Patient received morphine 5 mg IM. Patient is not altered here in the emergency room with stable vital signs. EKG done at 7:05 PM shows normal sinus rhythm at a rate of 75 with a first-degree AV block. No ischemic changes. Patient will be discharged in stable condition and at no time was lethargic or had alteration of mental status here in the emergency room. Patient data External records reviewed:: [facility] previous records (Reviewed prior ED records from 11/08/24. Patient was seen for Complication, dialysis catheter clot or failure.) Clinical information provided by:: patient Social determinants that could affect healthcare access:: none Patient has the following chronic illnesses:: Heart Murmur, Hypertension, Asthma, Obesity, Renal Disease and Dialysis, Arthritis, Osteomyelitis, Blind, Diabetes Mellitus Type 2, Bipolar Disorder, Depression, Anxiety, Cancer How is presenting disease/condition affected by chronic disease/condition?: exacerbated by Evaluation data The following diagnostics were reviewed and interpreted by me:: lab results and EKG tracing(s) Lab and/or radiology exams considered but not ordered:: None Interpretation Summary: See MDM above Medications / Prescriptions Medications or Prescriptions considered but not ordered:: None Medication administrations:: Medication Administration History Discontinued Medications Morphine Sulfate (Morphine Sulf Inj 4 Mg/Ml Vial) 5 mg IM X1 ONE Stop: 11/10/24 18:24 Last Admin: 11/10/24 19:07 Dose: 5 mg Documented By: DT See above if any Consultations Consultation(s) initiated? (list below): No Diagnosis Differential diagnosis altered mental status: altered mental status, delirium, dementia, hypoglycemia, hyponatremia and sepsis Most likely diagnosis given after review of the tests above:: None Admission Indicated Admission indicated?: not indicated Explain why admission is indicated or not indicated:: Patient does not meet admission criteria Admission Request Was there a request for admission?: No Disposition Plan Disposition Plan: Discharge Discharge Attestation Discharge Attestation: The patient and all family members were given an opportunity to ask questions and understood the discharge instructions. Discharge instructions specifically effects, indications for sooner follow up or return to the emergency department, and the expected course of current diagnosis. Patient condition: Stable Discharge Plan Plan Patient Disposition: HOME (Self Care) Prescriptions/Referrals Prescriptions/Med Rec: No Action gabapentin 600 mg Tablet 1,200 mg PO TID (DME) insulin syringe-needle U-100 [BD Insulin Syringe] 1 mL 28 gauge x 1/2 syringe See Rx Instructions .ROUTE .MEDSUPPLY Qty: 100 0RF Rx Instructions: As directed (DME) FreeStyle Zoey 2 Driggs Misc See Rx Instructions .Route Qty: 1 2RF Rx Instructions: As directed; once daily insulin glargine 100 unit/mL solution 10 unit subcut QPM Qty: 10 4RF insulin glargine 100 unit/mL (3 mL) insulin pen 10 unit subcut QPM Qty: 15 4RF (DME) FreeStyle Zoey 2 Sensor Kit See Rx Instructions .Route Qty: 1 3RF Rx Instructions: As directed once daily ibuprofen 800 mg tablet 800 mg PO TID PRN (Reason: pain) Qty: 20 0RF acetaminophen-codeine 300-30 mg tablet 1 tab PO Q12H PRN (Reason: pain) Qty: 14 0RF hydroxyzine HCl 25 mg tablet 25 mg PO HS PRN (Reason: insom) Qty: 30 0RF (DME) blood pressure monitor [Blood Pressure Kit] Kit See Rx Instructions .Route Qty: 1 0RF Rx Instructions: As directed acetaminophen-codeine 300-30 mg tablet 2 tab PO Q8H MDD 6 PRN (Reason: pain) Qty: 20 0RF ibuprofen 400 mg tablet 400 mg PO Q8H PRN (Reason: pain) Qty: 30 0RF albuterol sulfate 90 mcg/actuation HFA aerosol inhaler 2 puff inhalation Q6H PRN (Reason: shortness of breath or wheezing) Qty: 8.5 0RF ondansetron 4 mg tablet,disintegrating 4 mg PO TID PRN (Reason: nausea and vomiting) 30 Days Qty: 10 0RF Referrals: Lesia Kramer MD [Primary Care Provider] - In 1 week Problem List Clinical Impression: Lethargy Patient/Caregiver Discharge Instructions Additional Instructions: Continue all current medications. Keep your dialysis appointments. Return to ER as needed. Print Language: Hungarian Stand Alone Forms: Monik Award Info., Patient Portal Info Letter
[2024-11-10 18:37] LABS: Basophils # (Auto) 0.1 Thou/mm3 (0.0-0.2); Basophils % (Auto) 0 % (0-2.5); Eosinophils # (Auto) 0.0 Thou/mm3 (0.0-0.5); Eosinophils % (Auto) 0 % (0-10); Hematocrit 30.0 % (36.0-46.0); Hemoglobin 9.5 g/dL (12.0-16.0); Immature Granulocytes Auto 0.34 Thou/mm3 (0.00-0.00); Lymphocytes # (Auto) 1.2 Thou/mm3 (1.0-4.8); Lymphocytes % (Auto) 6 % (10-50); Mean Corpuscular HGB Conc 31.7 g/dl (31.0-37.0); Mean Corpuscular Hemoglobin 29.6 pg (25.0-35.0); Mean Corpuscular Volume 94 fL (80-100); Monocytes # (Auto) 1.4 Thou/mm3 (0.0-0.8); Monocytes % (Auto) 8 % (0-12); Neutrophils # (Auto) 15.7 Thou/mm3 (1.8-7.7); Neutrophils % (Auto) 84 % (37-80); Nucleated Red Blood Cell # 0.00 Thou/mm3 (0.00-0.00); Nucleated Red Blood Cell % 0 /100 WBC (0); Platelet Count 287 Thou/mm3 (140-440); RDW Standard Deviation 46.9 fL (36.4-46.3); Red Blood Count 3.21 Miln/mm3 (4.00-5.20); White Blood Count 18.8 Thou/mm3 (3.6-11.0)
[2024-11-10] MEDS: MORPHINE SULF INJ 4 MG/ML VIAL 5 MG IM (19:07)
[2024-11-10 19:21] LABS: Anion Gap 20 (7-16); Blood Urea Nitrogen 31 mg/dL (9-23); Carbon Dioxide 30.7 mMol/L (20.0-31.0); Chloride 86 mMol/L (98-107); Potassium 4.0 mMol/L (3.4-5.1); Sodium 137 mMol/L (136-145)
[2024-11-10 19:22] LABS: BUN/Creatinine Ratio 6 Ratio (12-20); Calcium 8.7 mg/dL (8.3-10.6); Creatinine (Component) 4.9 mg/dL (0.6-1.3); Estimated Creatinine Clearance 15.8 mL/min (>60); Glucose 221 mg/dL (74-106); Osmolality,Calculated 287 (275-295); eGFR 10 See Note
[2024-11-10 19:38] VITALS: PULSE 159; RESP 19; TEMP 37; O2SAT 95
== END 2024-11-10 19:40 | disposition home or self-care (01) ==
PROVIDERS: Emergency Provider Emergency Medicine; PCP Family Medicine
DX: I12.0 Hypertensive chronic kidney disease with stage 5 chronic kidney disease or end stage renal disease (principal); R53.83 Other fatigue; N18.6 End stage renal disease; Z99.2 Dependence on renal dialysis
CPT/HCPCS: 36415; 80048; 85025; 93005; 96372; 99283; J2270

== ENCOUNTER 2024-11-18 10:32 | Emergency (ER) | payer MEDICAID, SELFPAY ==
[2024-11-18 10:33] VITALS: PULSE 86; RESP 18; O2SAT 96
[2024-11-18 10:37] VITALS: BMI 35.9
[2024-11-18 10:42] VITALS: BP 185/88; PULSE 84; RESP 18; TEMP 36.4; O2SAT 95
--- NOTE | 2024-11-18 11:37 | EDNOTE_ITS ---
ED Back Injury Pain RME/HPI General Chief Complaint: Back Pain/Injury Stated Complaint: LOWER BACK PAIN Time Seen by Provider: 11/18/24 11:21 Arrival date/time: 11/18/24 10:32 RME / HPI RME / HPI Narrative: 49-year-old female patient with significant history of end-stage renal disease, diabetes mellitus, was brought in by family for evaluation regarding left sided lumbar pain. Onset of symptoms for several weeks, getting worse for the last 1 week has left-sided lumbar pain radiating to the left buttock and left posterior thigh. Described as dull ache, severity moderate. Patient is ambulatory with assistance. Patient denies any bladder incontinence. Denies any bowel incontinence denies any saddle anesthesia. Patient denies any fever dysuria or other complaints. She had dialysis yesterday. Scheduled for dialysis tomorrow. Related Data Home Medications ?Medication ?Instructions ?Recorded ?Confirmed gabapentin 600 mg tablet 1,200 mg PO TID 06/16/2007/17 Previous Rx's ?Medication ?Instructions ?Recorded insulin syringe-needle U-100 1 mL #100 ea 02/22/20 28 gauge x 1/2 (BD Insulin Syringe) hydroxyzine HCl 25 mg tablet 25 mg PO HS PRN insom #30 tabs 06/06/23 blood pressure monitor (Blood #1 ea 06/28/23 Pressure Kit) flash glucose scanning reader #1 ea 01/13/24 (FreeStyle Zoey 2 [place]) flash glucose sensor (FreeStyle #1 ea 01/13/24 Zoey 2 Sensor kit) insulin glargine 100 unit/mL (3 10 unit (0.1 mL) subcu t QPM #15 mL 01/13/24 mL) subcutaneous pen insulin glargine 100 unit/mL 10 unit (0.1 mL) subcut Q PM #10 mL 01/13/24 subcutaneous solution acetaminophen 300 mg-codeine 30 mg 1 tab PO Q12H PRN p ain #14 tabs 03/04/24 tablet ibuprofen 800 mg tablet 800 mg PO TID PRN pain #20 t abs 03/04/24 acetaminophen 300 mg-codeine 30 mg 2 tab PO Q8H PRN pa in #20 tabs 10/26/24 tablet albuterol sulfate 90 mcg/actuation 2 puff inhalation Q 6H PRN 10/26/24 aerosol inhaler shortness of breath or wheez ing #8.5 grams ibuprofen 400 mg tablet 400 mg PO Q8H PRN pain #30 t abs 10/26/24 ondansetron 4 mg disintegrating 4 mg PO TID PRN nausea and 10/26/24 tablet vomiting 30 days #10 tabs acetaminophen 300 mg-codeine 30 mg 1 tab PO Q8H PRN pa in #20 tabs 11/18/24 tablet acetaminophen 300 mg-codeine 30 mg 1 tab PO Q8H PRN pa in #20 tabs 11/18/24 tablet methocarbamol 500 mg tablet 500 mg PO BID PRN pain #14 tabs 11/18/24 Allergies Allergy/AdvReac Type Severity Reaction Status Date / Time No Known Allergies Allergy Verified 11/18/24 10:38 Review of Systems Review of Systems Narrative Review of Systems: Review of system reviewed and within normal limits except mentioned in HPI ED Exam Narrative Physical exam: VITAL SIGNS: Reviewed. GENERAL APPEARANCE: Alert and interactive, follows commands, no acute distress, HEAD AND FACE: Non-traumatic. ENT: PERRL, pink conjunctivitis, eyelid no trauma, Mucous membrane moist. NECK: Supple, nontender, no nuchal rigidity. CHEST: No tenderness, no crepitus, no paradoxical movement, no retractions. LUNGS: Clear, well ventilated, symmetric, no rales, no wheezing, no ronchi, no stridor, good breath sounds bilaterally. HEART: Regular rate, regular rhythm, no murmur, no gallops. ABDOMEN: Soft, positive bowel sounds, nondistended, no guarding, nontender, no rebound, no masses, RECTAL: Deferred. GENITAL: Deferred. NEUROLOGICAL: Gross motor function intact sensory function intact, Appropriate for age. MUSCULOSKELETAL: low back tenderness more on the left side, full range of motion. EXTREMITIES: Nontender, full range of motion. + Positive straight leg raising test on the left SKIN: Color pink, dry, no rash, no lacerations, no abrasions, no contusions. LYMPHATICS: Deferred. Course Quality Measures none Orders Category Date Time Status CT lumbar spine wo con Stat Exams 11/18/24 11:37 Completed HCG Qualitative,Urine Stat Lab 11/18/24 14:00 Completed UA, C/S IF [Urinalysis, C/S if Indicated] Stat Lab 11/18/24 14:00 Completed HYDROcodone*/APAP 5/325 [Swain 5/325] Med 11/18/24 11:37 Discontinued 1 tab PO X1 ONE Ketorolac Inj [Toradol Inj] Med 11/18/24 15:10 Discontinued 15 mg IM X1 ONE Vital Signs Vital signs: Vital Signs Temperature 97.5 F 11/18/24 10:42 Pulse Rate 84 11/18/24 10:42 Respiratory Rate 18 11/18/24 10:42 Blood Pressure 185/88 H 11/18/24 10:42 Pulse Oximetry (%) 95 11/18/24 10:42 Oxygen Delivery Method Room Air 11/18/24 10:42 Back Pain / Injury MDM Narrative MDM Narrative:: 49-year-old female patient with significant history of end-stage renal disease, diabetes mellitus, was brought in by family for evaluation regarding left sided lumbar pain. Onset of symptoms for several weeks, getting worse for the last 1 week has left-sided lumbar pain radiating to the left buttock and left posterior thigh. Described as dull ache, severity moderate. Patient is ambulatory with assistance. Patient denies any bladder incontinence. Denies any bowel incontinence denies any saddle anesthesia. Patient denies any fever dysuria or other complaints. She had dialysis yesterday. Scheduled for dialysis tomorrow. Urinalysis no UTI. CT scan of the lumbar spine showed L4-L5 2 mm central lumbar disc bulge L3-L4 4 mm calcified central lumbar disc bulge MRI lumbar spine without contrast follow-up would be preferable in assessing acquired spinal stenosis Patient received Swain and Toradol with significant proving of pain. Patient stable for charged home. Patient does not need further imaging like MRI of the lumbar spine since patient is not showing any cauda equina syndrome. Patient was advised to follow-up with spine surgeon. Patient is able to ambulate with assistance. Patient data External records reviewed:: None Clinical information provided by:: patient Social determinants that could affect healthcare access:: none Patient has the following chronic illnesses:: ESRD on dialysis How is presenting disease/condition affected by chronic disease/condition?: exacerbated by Evaluation data The following diagnostics were reviewed and interpreted by me:: lab results and radiology exam(s) Lab and/or radiology exams considered but not ordered:: None Interpretation Summary: See MDM Medications / Prescriptions Medications or Prescriptions considered but not ordered:: None Medication administrations:: Medication Administration History Discontinued Medications Hydrocodone Bitart/Acetaminophen (Hydrocodone/Apap 5/325 Tablet) 1 tab PO X1 ONE Stop: 11/18/24 11:38 Last Admin: 11/18/24 12:37 Dose: 1 tab Documented By: Ketorolac Tromethamine (Ketorolac Inj 30 Mg/Ml Vial) 15 mg IM X1 ONE Stop: 11/18/24 15:11 Last Admin: 11/18/24 16:25 Dose: 15 mg Documented By: Swain and Toradol Consultations Consultation(s) initiated? (list below): No Diagnosis Differential diagnosis back pain/injury: lumbar radiculopathy, discitis and other (Low back pain with sciatica) Most likely diagnosis given after review of the tests above:: Low back pain or sciatica Admission Indicated Admission indicated?: not indicated Admission Request Was there a request for admission?: No Disposition Plan Disposition Plan: Discharge Discharge Attestation Discharge Attestation: The patient was given an opportunity to ask questions and understood the disch arge instructions. Discharge instructions specifically effects, indications for sooner follow up or return to the emergency department, and the expected course of current diagnosis. Patient condition: Stable Discharge Plan Plan Patient Disposition: HOME (Self Care) Discharge Disposition comment: Stable Prescriptions/Referrals Prescriptions/Med Rec: New acetaminophen-codeine 300-30 mg tablet 1 tab PO Q8H PRN (Reason: pain) Qty: 20 0RF methocarbamol 500 mg tablet 500 mg PO BID PRN (Reason: pain) Qty: 14 0RF acetaminophen-codeine 300-30 mg tablet 1 tab PO Q8H PRN (Reason: pain) Qty: 20 0RF No Action gabapentin 600 mg Tablet 1,200 mg PO TID (DME) insulin syringe-needle U-100 [BD Insulin Syringe] 1 mL 28 gauge x 1/2 syringe See Rx Instructions .ROUTE .MEDSUPPLY Qty: 100 0RF Rx Instructions: As directed (DME) FreeStyle Zoey 2 [place] Misc See Rx Instructions .Route Qty: 1 2RF Rx Instructions: As directed; once daily insulin glargine 100 unit/mL solution 10 unit subcut QPM Qty: 10 4RF insulin glargine 100 unit/mL (3 mL) insulin pen 10 unit subcut QPM Qty: 15 4RF (DME) FreeStyle Zoey 2 Sensor Kit See Rx Instructions .Route Qty: 1 3RF Rx Instructions: As directed once daily ibuprofen 800 mg tablet 800 mg PO TID PRN (Reason: pain) Qty: 20 0RF acetaminophen-codeine 300-30 mg tablet 1 tab PO Q12H PRN (Reason: pain) Qty: 14 0RF hydroxyzine HCl 25 mg tablet 25 mg PO HS PRN (Reason: insom) Qty: 30 0RF (DME) blood pressure monitor [Blood Pressure Kit] Kit See Rx Instructions .Route Qty: 1 0RF Rx Instructions: As directed acetaminophen-codeine 300-30 mg tablet 2 tab PO Q8H MDD 6 PRN (Reason: pain) Qty: 20 0RF ibuprofen 400 mg tablet 400 mg PO Q8H PRN (Reason: pain) Qty: 30 0RF albuterol sulfate 90 mcg/actuation HFA aerosol inhaler 2 puff inhalation Q6H PRN (Reason: shortness of breath or wheezing) Qty: 8.5 0RF ondansetron 4 mg tablet,disintegrating 4 mg PO TID PRN (Reason: nausea and vomiting) 30 Days Qty: 10 0RF Referrals: Lesia Kramer MD [Primary Care Provider] - In 1 week Problem List Clinical Impression: Low back pain, Sciatica Patient/Caregiver Discharge Instructions Discharge Activity: activity as tolerated Education Materials: ED Back Care Tips Additional Instructions: Thank you for the opportunity for serving you today. You are stable for dis charged . You are advised to: Follow-up with your PCP in 1 to 2 days Return to ED for worsening of symptoms Increase oral fluids Take medication as prescribed As your PCP to refer you to a spine surgeon Print Language: Jordanian Stand Alone Forms: Monik Award Info., Patient Portal Info Letter PA/FINANCE ADMINISTRATOR Supervising Physician PA/FINANCE ADMINISTRATOR Supervising Physician: MD Jevon
--- NOTE | 2024-11-18 11:37 | XR_ITS ---
Examination: CT lumbar spine, without contrast. 2-D sagittal reconstructions. 2-D coronal reconstructions. 3-D reconstructions. Date and time of exam:November 18, 2024 1537 hours INDICATIONS: Lower back pain beginning one day ago CTDI: vol (mGy):49.5 DLP: (mGycm):1412 Technique: Multiple 1.25 mm axial sections of the lumbar spine without intravenous contrast have been obtained. 2-D sagittal and coronal reconstructions have been obtained. 3-D reconstructions have been obtained. Low dose protocols were performed. One or more of the following dose reduction techniques were used; automated exposure control, adjustment of the mA and/or KV according to patient size, use of iterative reconstruction technique. Findings: Adequate alignment lumbar vertebral bodies No lumbar fracture No spondylolisthesis Mild lumbar spondylosis L5-S1 no disc protrusion L4-L5 2 mm central lumbar disc bulge L3-L4 4mm calcified central lumbar disc bulge L2-L3 no disc protrusion L1-L2 no disc protrusion IMPRESSION: L4-L5 2 mm central lumbar disc bulge L3-L4 4 mm calcified central lumbar disc bulge MRI lumbar spine without contrast follow-up would be preferable in assessing acquired spinal stenosis
[2024-11-18] MEDS: HYDROcodone/APAP 5/325 TABLET 1 TAB PO (12:37)
--- NOTE | 2024-11-18 12:42 | PC.NURSE ---
Patient unable to void, patient on hemodiaysis with limited output. Provider made aware, new order for HCG blood draw per facility policy of HCG test for imaging for ages under 55. Lab aware.
[2024-11-18 14:26] LABS: Collection Type, Urine Clean Catch
[2024-11-18 14:46] LABS: HCG Qualitative,Urine Negative
[2024-11-18 14:51] LABS: Bilirubin,Urine Negative (Negative); Blood,Urine Trace (Negative); Color,Urine Lt-Yellow (Lt Yel-Yel); Culture Indicated,Urine Contaminated; Glucose, Urine 3+ (Negative); Ketones,Urine Trace (Negative); Leukocyte Esterase,Urine Positive (Negative); Nitrite,Urine Negative (Negative); PH,Urine 7.0 (5.0-7.0); Protein,Urine 3+ (Neg - Trace); RBC,Urine 2 /hpf (0-3); Specific Gravity,Urine 1.020 (1.001-1.035); Squamous Epithelial Cell,Urine 12 /hpf (0-5); Urobilinogen,Urine Negative mg/dL (0.0-1.0); WBC,Urine 21 /hpf (0-5)
[2024-11-18 14:59] LABS: Clarity,Urine Hazy (Clear/Hazy)
[2024-11-18] MEDS: KETOROLAC INJ 30 MG/ML VIAL 15 MG IM (16:25)
== END 2024-11-18 18:41 | disposition home or self-care (01) ==
PROVIDERS: Nurse Practitioner Family; Emergency Provider Emergency Medicine; PCP Family Medicine
DX: M51.16 Intervertebral disc disorders with radiculopathy, lumbar region (principal)
CPT/HCPCS: 72131; 81001; 81025; 84703; 96372; 99284; J1885; A9270

== ENCOUNTER 2024-11-23 19:38 | Emergency (ER) | payer MEDICAID, SELFPAY ==
[2024-11-23 19:39] VITALS: BMI 43.2
--- NOTE | 2024-11-23 19:42 | XR_ITS ---
Examination: Duplex scan of the lower extremity, unilateral left Date and time of exam: November 23, 2024, 1954 hrs. Indications: Left leg swelling and pain beginning one week ago Technique: Duplex scan of the extremity veins using B-mode/grayscale imaging and Doppler spectral analysis and color flow Attention is directed to internal echogenicity, compression and augmentation involving these veins, color flow assessment, spectral analysis Findings: Major deep venous structures in the extremity demonstrate normal course and caliber. There is no evidence of deep vein thrombosis. Normal color flow and spectral analysis Impression: Negative for DVT..
[2024-11-23 19:50] VITALS: BP 185/87; PULSE 71; RESP 20; TEMP 37; O2SAT 95
--- NOTE | 2024-11-23 19:54 | PD.EDRME ---
Rapid Medical Screening Exam RME Arrival date/time: 11/23/24 19:38 49F with extensive PMH including ESRD (MWF) presents to ED with worsening L lower back pain that radiates down LLE. Separately, something is wrong with her dialysis port/cath. Patient went to dialysis on Friday and was only able to get about an hour of the session because the machine wasn't reading her access point. Chief Complaint: Extremity Problem,Nontraumatic Time Seen by Provider: 11/23/24 19:53 Vital signs: Vital Signs Temperature 98.6 F 11/23/24 19:50 Pulse Rate 71 11/23/24 19:50 Respiratory Rate 20 11/23/24 19:50 Blood Pressure 185/87 H 11/23/24 19:50 Pulse Oximetry (%) 95 11/23/24 19:50 Oxygen Delivery Method Room Air 11/23/24 19:50
--- NOTE | 2024-11-23 20:31 | PD.EDRME ---
Rapid Medical Screening Exam RME Arrival date/time: 11/23/24 19:38 11/23/24 19:38 49F with extensive PMH including ESRD (MWF) presents to ED with worsening L lower back pain that radiates down LLE. Separately, something is wrong with her dialysis port/cath. Patient went to dialysis on Friday and was only able to get about an hour of the session because the machine wasn't reading her access point. Chief Complaint: Extremity Problem,Nontraumatic Time Seen by Provider: 11/23/24 19:53 Vital signs: Vital Signs Temperature 98.6 F 11/23/24 19:50 Pulse Rate 71 11/23/24 19:50 Respiratory Rate 20 11/23/24 19:50 Blood Pressure 185/87 H 11/23/24 19:50 Pulse Oximetry (%) 95 11/23/24 19:50 Oxygen Delivery Method Room Air 11/23/24 19:50 RME Narrative: 11/23/24 19:38 49F with extensive PMH including ESRD (MWF) presents to ED with worsening L lower back pain that radiates down LLE. Separately, something is wrong with her dialysis port/cath. Patient went to dialysis on Friday and was only able to get about an hour of the session because the machine wasn't reading her access point.
[2024-11-23] MEDS: HYDROcodone/APAP 5/325 TABLET 1 TAB PO ×2 (20:41→21:19)
[2024-11-23 20:53] VITALS: BP 197/85; PULSE 77; RESP 19; TEMP 36.9; O2SAT 99
--- NOTE | 2024-11-23 20:59 | EDNOTE_ITS ---
ED Extremity Problem RME/HPI General Chief complaint: Extremity Problem,Nontraumatic Stated complaint: MID BACK PAINRADIATES DOWN LEG Time Seen by Provider: 11/23/24 19:53 Arrival date/time: 11/23/24 19:38 RME / HPI RME / HPI Narrative: 11/23/24 19:38 49F with extensive PMH including ESRD (MWF) presents to ED with worsening L lower back pain that radiates down LLE. Separately, something is wrong with her dialysis port/cath. Patient went to dialysis on Friday and was only able to get about an hour of the session because the machine wasn't reading her access point. --------- Dr. Wheeler?s Main ED Evaluation: 49yo female with a history of ESRD on HD (MWF), DM, HTN presents to the ED for a chief complaint of lower back pain that radiates down her buttock and left leg x 2 weeks. She denies any recent falls or injuries. She has been taking Tylenol with Codeine and Robaxin as prescribed at home without improvement. She denies any numbness, tingling, or any other associated symptoms. NKA. Related Data Home Medications ?Medication ?Instructions ?Recorded ?Confirmed gabapentin 600 mg tablet 1,200 mg PO TID 06/16/2007/17 Previous Rx's ?Medication ?Instructions ?Recorded insulin syringe-needle U-100 1 mL #100 ea 02/22/20 28 gauge x 1/2 (BD Insulin Syringe) hydroxyzine HCl 25 mg tablet 25 mg PO HS PRN insom #30 tabs 06/06/23 blood pressure monitor (Blood #1 ea 06/28/23 Pressure Kit) flash glucose scanning reader #1 ea 01/13/24 (FreeStyle Zoey 2 [place]) flash glucose sensor (FreeStyle #1 ea 01/13/24 Zoey 2 Sensor kit) insulin glargine 100 unit/mL (3 10 unit (0.1 mL) subcu t QPM #15 mL 01/13/24 mL) subcutaneous pen insulin glargine 100 unit/mL 10 unit (0.1 mL) subcut Q PM #10 mL 01/13/24 subcutaneous solution acetaminophen 300 mg-codeine 30 mg 1 tab PO Q12H PRN p ain #14 tabs 03/04/24 tablet ibuprofen 800 mg tablet 800 mg PO TID PRN pain #20 t abs 03/04/24 acetaminophen 300 mg-codeine 30 mg 2 tab PO Q8H PRN pa in #20 tabs 10/26/24 tablet albuterol sulfate 90 mcg/actuation 2 puff inhalation Q 6H PRN 10/26/24 aerosol inhaler shortness of breath or wheez ing #8.5 grams ibuprofen 400 mg tablet 400 mg PO Q8H PRN pain #30 t abs 10/26/24 ondansetron 4 mg disintegrating 4 mg PO TID PRN nausea and 10/26/24 tablet vomiting 30 days #10 tabs acetaminophen 300 mg-codeine 30 mg 1 tab PO Q8H PRN pa in #20 tabs 11/18/24 tablet acetaminophen 300 mg-codeine 30 mg 1 tab PO Q8H PRN pa in #20 tabs 11/18/24 tablet methocarbamol 500 mg tablet 500 mg PO BID PRN pain #14 tabs 11/18/24 hydrocodone 10 mg-acetaminophen 1 tab PO Q6H PRN pain #30 tabs 11/23/24 325 mg tablet Allergies Allergy/AdvReac Type Severity Reaction Status Date / Time No Known Allergies Allergy Verified 11/18/24 10:38 Review of Systems Review of Systems Systems Reviewed: All systems reviewed, normal except as documented Past Medical History Past Medical History NEUROLOGIC: Negative Neurological Disorders or Seizures CARDIAC: Positive Heart Murmur and Hypertension; Negative Cardiac Disorders or Congestive Heart Failure RESPIRATORY: Positive Asthma; Negative Chronic Obstructive Pulmonary Disease (COPD) GASTROINTESTINAL: Positive Obesity; Negative Gastrointestinal Disorders GENITOURINARY: Positive Renal Disease and Dialysis REPRODUCTIVE: Positive Previous Pregnancies MUSCULOSKELETAL: Positive Arthritis and Osteomyelitis ENT: Positive Blind ENDOCRINE: Positive Endocrine Disorders and Diabetes Mellitus Type 2; Negative Diabetes Mellitus Type 1 HEMATOLOGIC: Negative Sickle Cell Disease PSYCHO/SOCIAL: Positive Bipolar Disorder, Depression and Anxiety OTHER HISTORY: Positive Hospitalization, Falls, Chicken Pox and Cancer; Negative Autoimmune Disease, Down Syndrome, Developmental Delay, Shingles, Blood Transfusions, Blood Transfusion Reaction, Anesthesia Reactions or Organ Transplant Family History FAMILY HISTORY: Positive Family Cancer; Negative Family Respiratory Disorders, Family Cardiac Disorders, Family Gastrointestinal Problems, Family Surgery or Family Anesthesia Reaction Surgical History SURGICAL: Positive Abdominal Surgery, Amputation and Section; Negative Cardiac Surgery, Nephrectomy or Organ Transplant Social History SMOKING STATUS: Never smoker SECOND HAND EXPOSURE: No SUBSTANCE USE: does not use ED Exam Narrative Physical exam: Generally patient is alert no obvious distress, heart regular rate and rhythm, lungs clear to auscultation equal bilaterally, abdomen is obese soft nondistended nontender neurologic exam shows no focal motor deficits. Musculoskeletal exam shows patient tenderness over the left buttock musculature and paravertebral muscular tenderness to the left lumbar spine. Right upper chest Vas-Cath in place Course Quality Measures none Orders Category Date Time Status US venous doppler LE LT Stat Exams 11/23/24 19:42 Completed HYDROcodone*/APAP 5/325 [[place] 5/325] Med 11/23/24 19:54 Discontinued 1 tab PO X1 ONE HYDROcodone*/APAP 5/325 [[place] 5/325] Med 11/23/24 21:06 Once 1 tab PO X1 ONE HYDROcodone/APAP 10/325 [[place] 10/325] Med 11/23/24 21:05 Discontinued 1 tab PO X1 ONE Vital Signs Vital signs: Vital Signs Temperature 98.6 F 11/23/24 19:50 Pulse Rate 71 11/23/24 19:50 Respiratory Rate 20 11/23/24 19:50 Blood Pressure 185/87 H 11/23/24 19:50 Pulse Oximetry (%) 95 11/23/24 19:50 Oxygen Delivery Method Room Air 11/23/24 19:50 Extremity Problem MDM Narrative MDM Narrative:: Scribe Attestation: 11/23/24 - Sherrill Rice am scribing for and in the presence of Dr. Wheeler. CT scan of the lumbar sacral spine ordered prior to my evaluation showed minimal disc bulges at the level of L3-L4 and L4-L5. No fractures. Doppler ultrasound to the left lower extremity showed no evidence of DVT. Patient is scheduled for dialysis tomorrow. She did give the history that on her dialysis yesterday they had low flow rates. They were going to try to make adjustments tomorrow and if not they were going to make arrangements for the patient to possibly get the Vas-Cath replaced. Patient data External records reviewed:: [facility] previous records (Per chart review, patient was seen here on 11/18/24 for low back pain.) Clinical information provided by:: patient Social determinants that could affect healthcare access:: none Patient has the following chronic illnesses:: ESRD, DM, HTN How is presenting disease/condition affected by chronic disease/condition?: uneffected by Evaluation data The following diagnostics were reviewed and interpreted by me:: radiology exam(s) Lab and/or radiology exams considered but not ordered:: none Interpretation Summary: [facility] Report Signed Patient: ARVIN FUNEZ Record#: [id number] Birthdate: 1975 Age/Sex: 49 / F [facility] Attending Dr: Ordering Physician: Raman Dinh PA-C Date of Service: 11/23/24 Procedure(s): US venous doppler LE LT Accession Number(s): [id number] cc: Christian Cooper MD; Raman Dinh PA-C; Dominick Moreland MD~ Examination: Duplex scan of the lower extremity, unilateral left Date and time of exam: November 23, 2024, 1954 hrs. Indications: Left leg swelling and pain beginning one week ago Technique: Duplex scan of the extremity veins using B-mode/grayscale imaging and Doppler spectral analysis and color flow Attention is directed to internal echogenicity, compression and augmentation involving these veins, color flow assessment, spectral analysis Findings: Major deep venous structures in the extremity demonstrate normal course and caliber. There is no evidence of deep vein thrombosis. Normal color flow and spectral analysis Impression: Negative for DVT.. Dictated By: Christian Cooper MD Signed By: <Electronically signed by Christian Cooper MD in [place]> 11/23/242052 Medications / Prescriptions Medications or Prescriptions considered but not ordered:: none Medication administrations:: Medication Administration History Hydrocodone Bitart/Acetaminophen (Hydrocodone/Apap 5/325 Tablet) 1 tab PO X1 ONE Stop: 11/23/24 21:07 Discontinued Medications Hydrocodone Bitart/Acetaminophen (Hydrocodone/Apap 5/325 Tablet) 1 tab PO X1 ONE Stop: 11/23/24 19:55 Last Admin: 11/23/24 20:41 Dose: 1 tab Documented By: Hydrocodone Bitart/Acetaminophen (Hydrocodone/Apap 10/325 Tab) 1 tab PO X1 ONE Stop: 11/23/24 21:06 see above Consultations Consultation(s) initiated? (list below): No Diagnosis Extremity Problem Differential Diagnosis: other (See MDM.) Most likely diagnosis given after review of the tests above:: see clinical impression below Admission Indicated Admission indicated?: not indicated Admission Request Was there a request for admission?: No Disposition Plan Disposition Plan: Discharge Discharge Attestation Discharge Attestation: The patient and all family members were given an opportunity to ask questions and understood the discharge instructions. Discharge instructions specifically effects, indications for sooner follow up or return to the emergency department, and the expected course of current diagnosis. Patient condition: Stable Discharge Plan Plan Patient Disposition: HOME (Self Care) Prescriptions/Referrals Prescriptions/Med Rec: New hydrocodone-acetaminophen 10-325 mg tablet 1 tab PO Q6H MDD 4 PRN (Reason: pain) Qty: 30 0RF No Action gabapentin 600 mg Tablet 1,200 mg PO TID (DME) insulin syringe-needle U-100 [BD Insulin Syringe] 1 mL 28 gauge x 1/2 syringe See Rx Instructions .ROUTE .MEDSUPPLY Qty: 100 0RF Rx Instructions: As directed (DME) FreeStyle Zoey 2 [place] Misc See Rx Instructions .Route Qty: 1 2RF Rx Instructions: As directed; once daily insulin glargine 100 unit/mL solution 10 unit subcut QPM Qty: 10 4RF insulin glargine 100 unit/mL (3 mL) insulin pen 10 unit subcut QPM Qty: 15 4RF (DME) FreeStyle Zoey 2 Sensor Kit See Rx Instructions .Route Qty: 1 3RF Rx Instructions: As directed once daily ibuprofen 800 mg tablet 800 mg PO TID PRN (Reason: pain) Qty: 20 0RF acetaminophen-codeine 300-30 mg tablet 1 tab PO Q12H PRN (Reason: pain) Qty: 14 0RF hydroxyzine HCl 25 mg tablet 25 mg PO HS PRN (Reason: insom) Qty: 30 0RF (DME) blood pressure monitor [Blood Pressure Kit] Kit See Rx Instructions .Route Qty: 1 0RF Rx Instructions: As directed acetaminophen-codeine 300-30 mg tablet 2 tab PO Q8H MDD 6 PRN (Reason: pain) Qty: 20 0RF ibuprofen 400 mg tablet 400 mg PO Q8H PRN (Reason: pain) Qty: 30 0RF albuterol sulfate 90 mcg/actuation HFA aerosol inhaler 2 puff inhalation Q6H PRN (Reason: shortness of breath or wheezing) Qty: 8.5 0RF ondansetron 4 mg tablet,disintegrating 4 mg PO TID PRN (Reason: nausea and vomiting) 30 Days Qty: 10 0RF acetaminophen-codeine 300-30 mg tablet 1 tab PO Q8H PRN (Reason: pain) Qty: 20 0RF methocarbamol 500 mg tablet 500 mg PO BID PRN (Reason: pain) Qty: 14 0RF acetaminophen-codeine 300-30 mg tablet 1 tab PO Q8H PRN (Reason: pain) Qty: 20 0RF Referrals: Dominick Moreland MD [Primary Care Provider, Nephrology] - In 1 week Problem List Clinical Impression: Sciatica, Renal failure Patient/Caregiver Discharge Instructions Additional Instructions: Keep your dialysis appointments. Stop the Tylenol with codeine. [place] as prescribed. Print Language: Maldivian Stand Alone Forms: [facility] Award Info., Patient Portal Info Letter
[2024-11-23 21:46] VITALS: BP 201/68; PULSE 85; RESP 14; TEMP 37; O2SAT 99
== END 2024-11-23 21:47 | disposition home or self-care (01) ==
PROVIDERS: Emergency Provider Emergency Medicine; PCP Internal Medicine
DX: M54.42 Lumbago with sciatica, left side (principal); I12.0 Hypertensive chronic kidney disease with stage 5 chronic kidney disease or end stage renal disease; N18.6 End stage renal disease; M79.89 Other specified soft tissue disorders; E11.22 Type 2 diabetes mellitus with diabetic chronic kidney disease; Z99.2 Dependence on renal dialysis; Z79.4 Long term (current) use of insulin
CPT/HCPCS: 93971; 99283; A9270

== ENCOUNTER 2024-11-24 12:00 | Emergency (ER) | payer MEDICAID, SELFPAY ==
--- NOTE | 2024-11-24 | XR_ITS ---
Examination: Assessment right subclavian permanent tunneled dialysis catheter AP chest single view Fluoroscopy November 24, 2024, 1345 hours INDICATIONS: Malfunctioning dialysis catheter FINDINGS: There is free flow and return of blood in both lines. The dialysis catheter is in satisfactory position, tips in the superior vena cava IMPRESSION: The right subclavian permanent tunneled dialysis catheter flushes in a satisfactory manner Fluoroscopy 0.1 minute radiation dose 0.48 milligray
[2024-11-24 12:15] VITALS: BP 171/97; PULSE 72; RESP 18; TEMP 37.1; O2SAT 95; BMI 35.9
--- NOTE | 2024-11-24 12:23 | PD.EDRME ---
Rapid Medical Screening Exam RME Arrival date/time: 11/24/24 12:00 49-year-old female presents to the emergency department racing that her dialysis catheter is not working patient came for replacement of catheter Chief Complaint: General Adult/Misc Complain Time Seen by Provider: 11/24/24 12:45 Vital signs: Vital Signs Temperature 98.8 F 11/24/24 12:15 Pulse Rate 72 11/24/24 12:15 Respiratory Rate 18 11/24/24 12:15 Blood Pressure 171/97 H 11/24/24 12:15 Pulse Oximetry (%) 95 11/24/24 12:15 Oxygen Delivery Method Room Air 11/24/24 12:15
[2024-11-24 13:00] LABS: Basophils # (Auto) 0.1 Thou/mm3 (0.0-0.2); Basophils % (Auto) 0 % (0-2.5); Eosinophils # (Auto) 0.2 Thou/mm3 (0.0-0.5); Eosinophils % (Auto) 1 % (0-10); Hematocrit 29.4 % (36.0-46.0); Hemoglobin 9.2 g/dL (12.0-16.0); Immature Granulocytes Auto 0.27 Thou/mm3 (0.00-0.00); Lymphocytes # (Auto) 1.1 Thou/mm3 (1.0-4.8); Lymphocytes % (Auto) 8 % (10-50); Mean Corpuscular HGB Conc 31.3 g/dl (31.0-37.0); Mean Corpuscular Hemoglobin 29.9 pg (25.0-35.0); Mean Corpuscular Volume 96 fL (80-100); Monocytes # (Auto) 1.0 Thou/mm3 (0.0-0.8); Monocytes % (Auto) 7 % (0-12); Neutrophils # (Auto) 11.2 Thou/mm3 (1.8-7.7); Neutrophils % (Auto) 82 % (37-80); Nucleated Red Blood Cell # 0.00 Thou/mm3 (0.00-0.00); Nucleated Red Blood Cell % 0 /100 WBC (0); Platelet Count 374 Thou/mm3 (140-440); RDW Standard Deviation 48.8 fL (36.4-46.3); Red Blood Count 3.08 Miln/mm3 (4.00-5.20); White Blood Count 13.7 Thou/mm3 (3.6-11.0)
[2024-11-24 13:18] LABS: INR 1.0 (0.9-1.3); Partial Thromboplastin Time 22.5 Seconds (22.0-36.0); Prothrombin Time 10.7 Seconds (9.0-12.2)
[2024-11-24 13:21] LABS: HCG,Qualitative Serum Negative
[2024-11-24 13:22] LABS: Alanine Aminotransferase 30 U/L (10-49); Albumin, Serum 4.1 gm/dL (3.5-5.0); Albumin/Globulin Ratio 1.4 (1.2-2.2); Alkaline Phosphatase 292 U/L (46-116); Anion Gap 14 (7-16); Aspartate Amino Transferase 30 U/L (0-34); BUN/Creatinine Ratio 7 Ratio (12-20); Bilirubin,Total 0.2 mg/dL (0.3-1.2); Blood Urea Nitrogen 61 mg/dL (9-23); Calcium 8.6 mg/dL (8.3-10.6); Calcium (Corrected) 8.6 mg/dL (8.5-10.1); Carbon Dioxide 22.9 mMol/L (20.0-31.0); Chloride 101 mMol/L (98-107); Creatinine (Component) 8.8 mg/dL (0.6-1.3); Estimated Creatinine Clearance 8.8 mL/min (>60); Globulin 3.0 gm/dL (2.3-3.5); Glucose 132 mg/dL (74-106); Osmolality,Calculated 294 (275-295); Potassium 5.5 mMol/L (3.4-5.1); Sodium 138 mMol/L (136-145); Total Protein 7.1 gm/dL (5.7-8.2); eGFR 5 See Note
--- NOTE | 2024-11-24 13:34 | PD.EDADULT ---
ED General RME/HPI General Chief complaint: General Adult/Misc Complain Stated complaint: DIALYSIS CATH NOT WORKING Time Seen by Provider: 11/24/24 12:45 Arrival date/time: 11/24/24 12:00 Limitations: no limitations RME / HPI RME / HPI narrative: 11/24/24 12:00 49-year-old female presents to the emergency department racing that her dialysis catheter is not working patient came for replacement of catheter DR. HUSAIN MAIN ED EVALUATION 49-year-old female here for evaluation of malfunctioning dialysis catheter. States that she has been getting dialysis for the past year approximately Friday, Friday, Friday. Last dialysis session was on Friday and only able to complete 1 hour. Needing replacement of catheter. Has AV fistula to left arm that has not been approved for use yet. Mild shortness of breath this morning but otherwise no chest pain, abdominal pain, fever, cough, other acute symptoms at present. Notes that she was here recently for lower back pain diagnosed with sciatica for which she has not yet picked up her medications. Related Data Home Medications ?Medication ?Instructions ?Recorded ?Confirmed gabapentin 600 mg tablet 1,200 mg PO TID 06/16/20 12/30/23 Previous Rx's ?Medication ?Instructions ?Recorded insulin syringe-needle U-100 1 mL #100 ea 02/22/20 28 gauge x 1/2 (BD Insulin Syringe) hydroxyzine HCl 25 mg tablet 25 mg PO HS PRN insom #30 tabs 06/06/23 blood pressure monitor (Blood #1 ea 06/28/23 Pressure Kit) flash glucose scanning reader #1 ea 01/13/24 (FreeStyle Zoey 2 [place]) flash glucose sensor (FreeStyle #1 ea 01/13/24 Zoey 2 Sensor kit) insulin glargine 100 unit/mL (3 10 unit (0.1 mL) subcut QPM #15 mL 01/13/24 mL) subcutaneous pen insulin glargine 100 unit/mL 10 unit (0.1 mL) subcut QPM #10 mL 01/13/24 subcutaneous solution acetaminophen 300 mg-codeine 30 mg 1 tab PO Q12H PRN pain #14 tabs 03/04/24 tablet ibuprofen 800 mg tablet 800 mg PO TID PRN pain #20 tabs 03/04/24 acetaminophen 300 mg-codeine 30 mg 2 tab PO Q8H PRN pain #20 tabs 10/26/24 tablet albuterol sulfate 90 mcg/actuation 2 puff inhalation Q6H PRN 10/26/24 aerosol inhaler shortness of breath or wheezing #8.5 grams ibuprofen 400 mg tablet 400 mg PO Q8H PRN pain #30 tabs 10/26/24 ondansetron 4 mg disintegrating 4 mg PO TID PRN nausea and 10/26/24 tablet vomiting 30 days #10 tabs acetaminophen 300 mg-codeine 30 mg 1 tab PO Q8H PRN pain #20 tabs 11/18/24 tablet acetaminophen 300 mg-codeine 30 mg 1 tab PO Q8H PRN pain #20 tabs 11/18/24 tablet methocarbamol 500 mg tablet 500 mg PO BID PRN pain #14 tabs 11/18/24 hydrocodone 10 mg-acetaminophen 1 tab PO Q6H PRN pain #30 tabs 11/23/24 325 mg tablet Allergies Allergy/AdvReac Type Severity Reaction Status Date / Time No Known Allergies Allergy Verified 11/18/24 10:38 Review of Systems Review of Systems Systems Reviewed: All systems reviewed, normal except as documented Past Medical History Past Medical History CARDIAC: Positive Heart Murmur and Hypertension RESPIRATORY: Positive Asthma GASTROINTESTINAL: Positive Obesity GENITOURINARY: Positive Renal Disease and Dialysis REPRODUCTIVE: Positive Previous Pregnancies MUSCULOSKELETAL: Positive Arthritis and Osteomyelitis ENT: Positive Blind ENDOCRINE: Positive Endocrine Disorders and Diabetes Mellitus Type 2 PSYCHO/SOCIAL: Positive Bipolar Disorder, Depression and Anxiety OTHER HISTORY: Positive Hospitalization, Falls, Chicken Pox and Cancer Family History FAMILY HISTORY: Positive Family Cancer Surgical History SURGICAL: Positive Abdominal Surgery, Amputation and Section Social History SMOKING STATUS: Never smoker SECOND HAND EXPOSURE: No SUBSTANCE USE: does not use Past Medical History Comments PMH COMMENT: End-stage renal disease on dialysis, diabetes ED Exam Narrative Physical exam: Constitutional: Awake, alert, obese, nontoxic, no acute distress HEENT: Normocephalic, atraumatic. CV: Regular rate and rhythm, no murmurs/rubs/gallops Lungs: Generally clear to auscultation BL, does not appear in respiratory distress at this time. Abd: Soft, NT, ND, no HSM noted to palpation Musculoskeletal: Dialysis catheter present to right upper chest wall. Skin: Warm, dry, intact General Limitations: Present no limitations Course Course Course Narrative: 1330h: Patient coming in for placement of new dialysis catheter in order to get dialysis as she missed most of her dialysis session a couple of days ago. IR replacement ordered as well as labs. 1610h: IR ended up being able to get the catheter to work again, no need for new catheter placement. I spoke with crossing supervisor Dr. Moreland. States she is okay with the patient going to dialysis tomorrow. Otherwise, patient can call the dialysis center today and see if they have any availability today. Patient is stable for discharge home at this time. Quality Measures none Orders Category Date Time Status Insert IV NOW Care 11/24/24 14:06 Completed IR dialysis catheter insertion Stat Exams 11/24/24 Completed CBC Stat Lab 11/24/24 12:40 Completed Comprehensive Metabolic Panel Stat Lab 11/24/24 12:40 Completed HCG,Qualitative Serum Stat Lab 11/24/24 12:40 Completed Partial Thromboplastin Time Stat Lab 11/24/24 12:40 Completed Prothrombin Time with INR Stat Lab 11/24/24 12:40 Completed HYDROcodone*/APAP 5/325 [[place] 5/325] Med 11/24/24 12:18 Discontinued 1 tab PO X1 ONE HYDROcodone*/APAP 7.5/325 [[place] 7.5/325] Med 11/24/24 14:13 Discontinued 1 tab PO X1 ONE Heparin 1000 UNIT/ML-1 ML [Heparin 1000 Unit/ml-1 ml] Med 11/24/24 14:06 Discontinued 5,000 unit .ROUTE .STK-MED ONE Heparin Sod Lock Syr [Hep-Lock 100 UNIT/ML SYR] Med 11/24/24 14:07 Discontinued 500 unit .ROUTE .STK-MED ONE Heparin Sod Lock Syr [Hep-Lock 100 UNIT/ML SYR] Med 11/24/24 14:00 Discontinued 500 unit [place] X1 ONE Lidocaine 1% Pf 30 ml [Xylocaine 1% Pf 30 ml] Med 11/24/24 14:07 Discontinued 30 ml .ROUTE .STK-MED ONE NALOXONE INJ (Vial) [Narcan Inj (Vial)] Med 11/24/24 14:06 Discontinued 0.4 mg .ROUTE .STK-MED ONE fentaNYL INJ [Sublimaze Inj] Med 11/24/24 14:06 Discontinued 200 mcg .ROUTE .STK-MED ONE fentaNYL INJ [Sublimaze Inj] Med 11/24/24 14:00 Discontinued 50 mcg IVP X1 ONE Vital Signs Vital signs: Vital Signs Temperature 98.8 F 11/24/24 12:15 Pulse Rate 72 11/24/24 12:15 Respiratory Rate 18 11/24/24 12:15 Blood Pressure 171/97 H 11/24/24 12:15 Pulse Oximetry (%) 95 11/24/24 12:15 Oxygen Delivery Method Room Air 11/24/24 12:15 Pulse ox is 95% on room air which is adequate. Discharge Plan Plan Patient Disposition: HOME (Self Care) Patient condition on transfer: Stable Prescriptions/Referrals Prescriptions/Med Rec: No Action gabapentin 600 mg Tablet 1,200 mg PO TID (DME) insulin syringe-needle U-100 [BD Insulin Syringe] 1 mL 28 gauge x 1/2 syringe See Rx Instructions .ROUTE .MEDSUPPLY Qty: 100 0RF Rx Instructions: As directed (DME) FreeStyle Zoey 2 [place] Misc See Rx Instructions .Route Qty: 1 2RF Rx Instructions: As directed; once daily insulin glargine 100 unit/mL solution 10 unit subcut QPM Qty: 10 4RF insulin glargine 100 unit/mL (3 mL) insulin pen 10 unit subcut QPM Qty: 15 4RF (DME) FreeStyle Zoey 2 Sensor Kit See Rx Instructions .Route Qty: 1 3RF Rx Instructions: As directed once daily ibuprofen 800 mg tablet 800 mg PO TID PRN (Reason: pain) Qty: 20 0RF acetaminophen-codeine 300-30 mg tablet 1 tab PO Q12H PRN (Reason: pain) Qty: 14 0RF hydrocodone-acetaminophen 10-325 mg tablet 1 tab PO Q6H MDD 4 PRN (Reason: pain) Qty: 30 0RF hydroxyzine HCl 25 mg tablet 25 mg PO HS PRN (Reason: insom) Qty: 30 0RF (DME) blood pressure monitor [Blood Pressure Kit] Kit See Rx Instructions .Route Qty: 1 0RF Rx Instructions: As directed acetaminophen-codeine 300-30 mg tablet 2 tab PO Q8H MDD 6 PRN (Reason: pain) Qty: 20 0RF ibuprofen 400 mg tablet 400 mg PO Q8H PRN (Reason: pain) Qty: 30 0RF albuterol sulfate 90 mcg/actuation HFA aerosol inhaler 2 puff inhalation Q6H PRN (Reason: shortness of breath or wheezing) Qty: 8.5 0RF ondansetron 4 mg tablet,disintegrating 4 mg PO TID PRN (Reason: nausea and vomiting) 30 Days Qty: 10 0RF acetaminophen-codeine 300-30 mg tablet 1 tab PO Q8H PRN (Reason: pain) Qty: 20 0RF methocarbamol 500 mg tablet 500 mg PO BID PRN (Reason: pain) Qty: 14 0RF acetaminophen-codeine 300-30 mg tablet 1 tab PO Q8H PRN (Reason: pain) Qty: 20 0RF Referrals: Lesia Kramer MD [Primary Care Provider] - In 1 week Problem List Clinical Impression: Complications, mechanical, catheter, dialysis, ESRD (end stage renal disease) on dialysis Patient/Caregiver Discharge Instructions Education Materials: ED Diet for Chronic Kidney Disease Additional Instructions: Call the dialysis center today to see if he can be fitted in for dialysis later today. If not, okay to get dialysis done tomorrow. Some general health principles that can help you are the [employer] principles: Nutrition (eat a plant-based diet, avoiding meats in general, avoiding highly processed foods) Exercise (Daily exercise/walks as tolerated) Water (Drink adequate fresh water to maintain hydration, concentrating on water rather than on soda, coffee, tea, juice, etc for hydration) [place] (Spend time - 15-20 minutes or so with skin exposed in the roof service technician and late evening sun for Vitamin D health benefits) [place] (Avoid alcohol, illicit drugs, caffeinated beverages, smoking, etc) Air (Deep breathing exercises in the early mornings in fresh air) Rest (Adequate rest at night, going to bed a few hours before midnight and avoiding all screens/television/loud music in the time right before going to bed, also avoiding heavy meals just prior to going to bed) Trust in God (Spend time daily in Bible study and prayer - health benefits in contemplation of God's true character) Additional resources that can benefit: [email or web address], look under resources and seminars. Print Language: Malian Stand Alone Forms: Monik Award Info., Patient Portal Info Letter MDM Clinical Information Provided by: patient Medical Records reviewed [facility] Meds/Rx considered, not ordered None Labs/Rad/Tests considered, not ordered None Chronic Illness/Social Conditions which may negatively complicate care or outcome(s)-explain: None or not applicable EKG EKG not done Labs Labs: see narrative above Imaging Imaging interpretation: none Medication Administration(s) Medication Administration History Discontinued Medications Hydrocodone Bitart/Acetaminophen (Hydrocodone/[place]ap 5/325 Tablet) 1 tab PO X1 ONE Stop: 11/24/24 12:19 Last Admin: 11/24/24 12:48 Dose: Not Given Documented By: ZULEYKA Non-Admin Reason: Patient Refused Hydrocodone Bitart/Acetaminophen (Hydrocodone/Apap 7.5/325 Tablet) 1 tab PO X1 ONE Stop: 11/24/24 14:14 Fentanyl Citrate (Fentanyl Cit Inj 50 Mcg/Ml Amp 2ml) Confirm Administered Dose 200 mcg .ROUTE .STK-MED ONE Stop: 11/24/24 14:07 Last Admin: 11/24/24 15:02 Dose: Not Given Documented By: Non-Admin Reason: Duplicate Medication on eMAR Fentanyl Citrate (Fentanyl Cit Inj 50 Mcg/Ml Amp 2ml) 50 mcg IVP X1 ONE Stop: 11/24/24 14:01 Last Admin: 11/24/24 14:53 Dose: 50 mcg Documented By: Heparin Sodium (Beef Lung) (Heparin Sod Lock Syr 100 Unit/Ml) Confirm Administered Dose 500 unit .ROUTE .STK-MED ONE Stop: 11/24/24 14:08 Last Admin: 11/24/24 15:03 Dose: Not Given Documented By: Non-Admin Reason: Duplicate Medication on eMAR Heparin Sodium (Beef Lung) (Heparin Sod Lock Syr 100 Unit/Ml) 500 [facility] X1 ONE Stop: 11/24/24 14:01 Last Admin: 11/24/24 14:30 Dose: 500 unit Documented By: Heparin Sodium (Porcine) (Heparin Sod Inj 1000 Unit/Ml Vial) Confirm Administered Dose 1,000 unit .ROUTE .STK-MED ONE Stop: 11/24/24 14:07 Last Admin: 11/24/24 15:03 Dose: Not Given Documented By: Non-Admin Reason: Duplicate Medication on eMAR Lidocaine HCl (Lidocaine Inj Pf 1% 30 Ml Vial) Confirm Administered Dose 30 ml .ROUTE .STK-MED ONE Stop: 11/24/24 14:08 Last Admin: 11/24/24 15:03 Dose: Not Given Documented By: Non-Admin Reason: Duplicate Medication on eMAR Naloxone HCl (Naloxone Inj 0.4 Mg/Ml Vial) Confirm Administered Dose 0.4 mg .ROUTE .[facility]-MED ONE Stop: 11/24/24 14:07 Last Admin: 11/24/24 15:03 Dose: Not Given Documented By: Non-Admin Reason: Duplicate Medication on eMAR See above Diagnosis Diagnoses ruled out and/or further discussions: Complications, mechanical, catheter, dialysis ESRD on dialysis
[2024-11-24] MEDS: HEPARIN SOD LOCK SYR 100 UNIT/ML 500 UNIT STFIELD (14:30)
[2024-11-24 14:40] VITALS: BP 187/96; PULSE 76; RESP 18; O2SAT 100
[2024-11-24 14:50] VITALS: BP 192/100; PULSE 77; RESP 18; O2SAT 100
[2024-11-24] MEDS: fentaNYL CIT INJ 50 mCg/ML AMP 2ML IVP (14:53)
[2024-11-24 14:59] VITALS: BP 192/96; PULSE 77; RESP 16; O2SAT 100
--- NOTE | 2024-11-24 15:22 | PC.NURSE ---
Patient taken back to ER 16 post-hemodialysis catheter exchange attempt. As per Dr. Lorenzo, existing tunneled dialysis catheter is patent, therefore; no medical necessity to exchange catheter at this time. Ranulfo ESTRADA provided with report.
[2024-11-24 16:26] VITALS: BP 189/86; PULSE 79; RESP 15; TEMP 36.7; O2SAT 94
[2024-11-24 17:10] VITALS: BP 182/97; PULSE 77; RESP 18
== END 2024-11-24 17:11 | disposition home or self-care (01) ==
PROVIDERS: Nurse Practitioner Primary Care; Emergency Provider Family Medicine; PCP Family Medicine
DX: T82.41XA Breakdown (mechanical) of vascular dialysis catheter, initial encounter (principal); N18.6 End stage renal disease; E11.22 Type 2 diabetes mellitus with diabetic chronic kidney disease; M54.40 Lumbago with sciatica, unspecified side; I12.0 Hypertensive chronic kidney disease with stage 5 chronic kidney disease or end stage renal disease; E66.9 Obesity, unspecified; Z68.35 Body mass index [BMI] 35.0-35.9, adult; Z99.2 Dependence on renal dialysis; Y82.8 Other medical devices associated with adverse incidents; Y84.8 Other medical procedures as the cause of abnormal reaction of the patient, or of later complication, without mention of misadventure at the time of the procedure
CPT/HCPCS: 36415; 76937; 77001; 80053; 84703; 85025; 85610; 85730; 96374; 99284; C1750; C1894; J1642; J3010; J7050

== ENCOUNTER 2024-12-12 17:40 | Emergency (ER) | payer MEDICAID, SELFPAY ==
[2024-12-12 17:46] VITALS: PULSE 80; RESP 12; O2SAT 96
[2024-12-12 17:51] VITALS: BP 156/85; PULSE 86; RESP 20; TEMP 37; O2SAT 95
--- NOTE | 2024-12-12 17:58 | XR_ITS ---
Examination: CT soft tissue neck, with intravenous contrast. 2-D coronal reconstructions. 2-D sagittal reconstructions. Date and time of exam : December 12, 2024, 1847 hours INDICATIONS: Diagnosis of Nadir's angina oral abscess neck swelling gum infection 1 week. CTDI: vol (mGy): 17.9 DLP: (mGycm): 481 Technique: 1.25 mm axial sections of the neck of the obtained. Coronal and sagittal reconstructions have been obtained. Intravenous contrast administered 50 cc Isovue 370. Low dose protocols were performed. One or more of the following dose reduction techniques were used; automated exposure control, adjustment of the mA and/or KV according to patient size, use of iterative reconstruction technique. Findings: Opacification of the right maxillary antrum and significant disease left maxillary antrum Prominent soft tissue in the nasopharynx although no abscess noted Diffuse edema in the subcutaneous tissue neck No tonsillar abscess Symmetrical submandibular glands No laryngeal mass Thyroid lobes are not enlarged Normal epiglottis The prevertebral soft tissue is abnormally prominent, sagittal image 55 Multiple maxillary and mandibular dental caries IMPRESSION: Prominent nasopharyngeal soft tissue, no tonsillar abscess Abnormally prominent prevertebral soft tissue anterior to the entire cervical spine, MRI cervical spine follow-up pre and postcontrast would best exclude prevertebral abscess
[2024-12-12 18:00] VITALS: BMI 36.6
[2024-12-12] MEDS: MethylPREDNISolone SOD SUCC 62.5 MG/ML 2ML VIAL 125 MG IVP (18:18)
[2024-12-12] MEDS: VANCOMYCIN/NS 1 GM IVPB 200 ML IV (18:18)
[2024-12-12] MEDS: PIPER/TAZO INJ 4.5 GM in SODIUM CHLORIDE 0.9% (POP) 100 ML IV (18:19)
--- NOTE | 2024-12-12 18:49 | EDNOTE_ITS ---
ED Weakness RME/HPI General Chief complaint: Weakness Stated complaint: GUM PAIN Time Seen by Provider: 12/12/24 18:02 Arrival date/time: 12/12/24 17:40 RME / HPI RME / HPI Narrative: Dr. Escoto?s Main ED Evaluation: 49yo female with a history of ESRD on HD (M/W/F), DM, HTN, asthma, blindness BIBA from home presents to the ED for worsening swelling to her mouth for the last couple weeks. Patient has been trying to make multiple dentist appointments, but reports she has been unable to make them. Patient felt the swelling to her mouth became worse today, reporting she could feel a mass under my tongue , so she came in for evaluation. Patient reports associated chills. Denies any fever, N/V, chest pain, shortness of breath, or any other associated symptoms. Patient has been compliant with her dialysis. NKA. Patient follows-up with Dr. Moreland. Related Data Home Medications ?Medication ?Instructions ?Recorded ?Confirmed gabapentin 600 mg tablet 1,200 mg PO TID 06/16/2007/17 Previous Rx's ?Medication ?Instructions ?Recorded insulin syringe-needle U-100 1 mL #100 ea 02/22/20 28 gauge x 1/2 (BD Insulin Syringe) hydroxyzine HCl 25 mg tablet 25 mg PO HS PRN insom #30 tabs 06/06/23 blood pressure monitor (Blood #1 ea 06/28/23 Pressure Kit) flash glucose scanning reader #1 ea 01/13/24 (FreeStyle Zoey 2 Emerson) flash glucose sensor (FreeStyle #1 ea 01/13/24 Zoey 2 Sensor kit) insulin glargine 100 unit/mL (3 10 unit (0.1 mL) subcu t QPM #15 mL 01/13/24 mL) subcutaneous pen insulin glargine 100 unit/mL 10 unit (0.1 mL) subcut Q PM #10 mL 01/13/24 subcutaneous solution acetaminophen 300 mg-codeine 30 mg 1 tab PO Q12H PRN p ain #14 tabs 03/04/24 tablet ibuprofen 800 mg tablet 800 mg PO TID PRN pain #20 t abs 03/04/24 acetaminophen 300 mg-codeine 30 mg 2 tab PO Q8H PRN pa in #20 tabs 10/26/24 tablet albuterol sulfate 90 mcg/actuation 2 puff inhalation Q 6H PRN 10/26/24 aerosol inhaler shortness of breath or wheez ing #8.5 grams ibuprofen 400 mg tablet 400 mg PO Q8H PRN pain #30 t abs 10/26/24 acetaminophen 300 mg-codeine 30 mg 1 tab PO Q8H PRN pa in #20 tabs 11/18/24 tablet acetaminophen 300 mg-codeine 30 mg 1 tab PO Q8H PRN pa in #20 tabs 11/18/24 tablet methocarbamol 500 mg tablet 500 mg PO BID PRN pain #14 tabs 11/18/24 hydrocodone 10 mg-acetaminophen 1 tab PO Q6H PRN pain #30 tabs 11/23/24 325 mg tablet Allergies Allergy/AdvReac Type Severity Reaction Status Date / Time No Known Allergies Allergy Verified 11/18/24 10:38 Review of Systems Review of Systems Systems Reviewed: All systems reviewed, normal except as documented Past Medical History Past Medical History NEUROLOGIC: Negative Neurological Disorders or Seizures CARDIAC: Positive Heart Murmur and Hypertension; Negative Cardiac Disorders or Congestive Heart Failure RESPIRATORY: Positive Asthma; Negative Chronic Obstructive Pulmonary Disease (COPD) GASTROINTESTINAL: Positive Obesity; Negative Gastrointestinal Disorders GENITOURINARY: Positive Renal Disease and Dialysis REPRODUCTIVE: Positive Previous Pregnancies MUSCULOSKELETAL: Positive Arthritis and Osteomyelitis ENT: Positive Blind ENDOCRINE: Positive Endocrine Disorders and Diabetes Mellitus Type 2; Negative Diabetes Mellitus Type 1 HEMATOLOGIC: Negative Sickle Cell Disease PSYCHO/SOCIAL: Positive Bipolar Disorder, Depression and Anxiety OTHER HISTORY: Positive Hospitalization, Falls, Chicken Pox and Cancer; Negative Autoimmune Disease, Down Syndrome, Developmental Delay, Shingles, Blood Transfusions, Blood Transfusion Reaction, Anesthesia Reactions or Organ Transplant Family History FAMILY HISTORY: Positive Family Cancer; Negative Family Respiratory Disorders, Family Cardiac Disorders, Family Gastrointestinal Problems, Family Surgery or Family Anesthesia Reaction Surgical History SURGICAL: Positive Abdominal Surgery, Amputation and Section; Negative Cardiac Surgery, Nephrectomy or Organ Transplant Social History SMOKING STATUS: Never smoker SECOND HAND EXPOSURE: No SUBSTANCE USE: does not use ED Exam General General appearance: Present other Head Head exam: Present atraumatic and other (Diffuse swelling of the face, swelling also below the mandible) Eye Eye exam: Present periorbital swelling ENT ENT exam: Present mucous membranes dry and other (Patient with mild tongue elevation, swelling below the left side of the tongue, uvula is midline, posterior oropharynx is mildly erythematous) Neck Neck exam: Present tenderness (Mild tenderness in the left side of the anterior neck with swelling, no stridor) Chest Chest inspection: Present symmetric chest wall rise Respiratory Respiratory exam: Present normal lung sounds bilaterally; Absent respiratory distress, wheezes or stridor Cardiovascular Cardiovascular exam: Present regular rate and normal rhythm Abdominal Exam Abdominal exam: Present soft; Absent distention, tenderness or guarding Extremities Exam Extremities exam: Present other (No acute abnormalities) Neurological Exam Neurological exam: Present alert, oriented X3 and other (Patient is clinically blind, this is her baseline) Psychiatric Psychiatric exam: Present normal mood Skin Skin exam: Present warm, dry and intact Course Course Course Narrative: 2214: Discussed case with [facility]'s transfer center. Discussed patients ED course, exam findings, labs, and radiology results. [facility] declined due to not having MRI available. [facility] declined due to not having ENT services. Quality Measures none Orders Category Date Time Status CT Screening NOW Care 12/12/24 18:[address] soft tissue neck w con Stat Exams 12/12/24 17:58 Completed Blood Culture (Lab) Stat Lab 12/12/24 18:35 Received CBC Stat Lab 12/12/24 18:15 Completed CMP [Comprehensive Metabolic Panel] Stat Lab 12/12/24 18:15 Completed CRP [C-Reactive Protein] Stat Lab 12/12/24 18:15 Completed ESR [Sed Rate (ESR)] Stat Lab 12/12/24 18:15 Completed PT [Prothrombin Time with INR] Stat Lab 12/12/24 18:15 Completed MethylPREDNISolone.* [SoluMEDROL Inj] Med 12/12/24 17:55 Discontinued 125 mg IVP X1 ONE Piper/Tazo Inj [Zosyn Inj] 4.5 gm Med 12/12/24 17:57 Discontinued Sodium Chloride 0.9% (Pop) [NS 0.9% mini bag] 100 ml IV X1 Vancomycin Pharmacy to Dose Med 12/12/24 17:55 Discontinued 1 each IV X1 PRN Vancomycin/Ns 1 gm Ivpb 200 ml Med 12/12/24 18:00 Discontinued IV X1 fentaNYL INJ [Sublimaze Inj] Med 12/12/24 20:12 Discontinued 25 mcg IVP X1 ONE Reevaluation(s) Reevaluation #1: Patient is resting comfortably and is not tachypneic. The swelling to her mouth has mildly improved. Oropharynx is patent and there is no stridor at this time. Time: 19:34 Vital Signs Vital signs: Vital Signs Temperature 98.6 F 12/12/24 17:51 Pulse Rate 86 12/12/24 17:51 Respiratory Rate 20 12/12/24 17:51 Blood Pressure 156/85 H 12/12/24 17:51 Pulse Oximetry (%) 95 12/12/24 17:51 Oxygen Delivery Method Room Air 12/12/24 17:51 Weakness MDM Narrative MDM Narrative:: Patient is a 49-year-old female that seen emergency department concerns for swelling diffusely to her face, as well as below her tongue and the left side of her neck. Vital signs and exam as listed. 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 Place patient resuscitation, obtain IV access placed on the cardiac/vascular sonographer. Ordered steroids, and broad-spectrum antibiotics. Also ordered stat CT scan of the neck and face. Patient not in respiratory distress on arrival, protecting her airway. Patient hemoglobin 9.7 this is patient's baseline. No leukocytosis, no left shift. Normal coags. No acute electrolyte abnormalities. No significant transaminitis. Patient does have elevated inflammatory markers. CRP is 4, ESR 73. CT neck soft tissue with significant opacification of the left and right maxillary antrums. Patient with diffuse edema in the subcutaneous tissue of the neck. No evidence of tonsillar abscess. Patient does have symmetrical submandibular glands. No laryngeal mass. Normal epiglottis. Patient has prevertebral soft tissue that is abnormally prominent. She has multiple caries. Given exam, hx and findings, and the fact that we do not have MRI capabilities at this time will initiate transfer for ENT and neurosurgery. 8p reevaluated patient, swelling improved mildly, no stridor, breathing comfortably, continues to have swelling underneath her tongue with some tongue deviation. Updated results of workup, in agreement with transfer. Ordered medication for symptom relief 10:16p discussed case with transfer center, they dont have MRI at [facility], and and [place] does not have ENT coverage today. decline transfer at time. I reevaluated patient, the patient clinically stable, not in any distress. At this time excepted transfer care over to oncoming provider Dr Loja. Patient is pending consult with an research associate quality control qc, given concerns for Nadir's angina and prevertebral swelling. Patient data External records reviewed:: [facility] previous records (Per chart review, patient was seen here on 11/24/24 for complications with dialysis catheter.) Clinical information provided by:: patient Social determinants that could affect healthcare access:: none Patient has the following chronic illnesses:: ESRD on HD (M/W/F), DM, HTN, asthma, blindness How is presenting disease/condition affected by chronic disease/condition?: uneffected by Evaluation data The following diagnostics were reviewed and interpreted by me:: lab results and radiology exam(s) Lab and/or radiology exams considered but not ordered:: none Interpretation Summary: [facility] Report Signed Patient: ARVIN FUNEZ Record#: [id number] Birthdate: 1975 Age/Sex: 49 / F Location: [facility] Attending Dr: Ordering Physician: Carolyn Escoto MD Date of Service: 12/12/24 Procedure(s): CT soft tissue neck w con Accession Number(s): [id number] cc: Christian Cooper MD; Lesia Kramer MD; Carolyn Escoto MD~ Examination: CT soft tissue neck, with intravenous contrast. 2-D coronal reconstructions. 2-D sagittal reconstructions. Date and time of exam : December 12, 2024, 1847 hours INDICATIONS: Diagnosis of Nadir's angina oral abscess neck swelling gum infection 1 week. CTDI: vol (mGy): 17.9 DLP: (mGycm): 481 Technique: 1.25 mm axial sections of the neck of the obtained. Coronal and sagittal reconstructions have been obtained. Intravenous contrast administered 50 cc Isovue 370. Low dose protocols were performed. One or more of the following dose reduction techniques were used; automated exposure control, adjustment of the mA and/or KV according to patient size, use of iterative reconstruction technique. Findings: Opacification of the right maxillary antrum and significant disease left maxillary antrum Prominent soft tissue in the nasopharynx although no abscess noted Diffuse edema in the subcutaneous tissue neck No tonsillar abscess Symmetrical submandibular glands No laryngeal mass Thyroid lobes are not enlarged Normal epiglottis The prevertebral soft tissue is abnormally prominent, sagittal image 55 Multiple maxillary and mandibular dental caries IMPRESSION: Prominent nasopharyngeal soft tissue, no tonsillar abscess Abnormally prominent prevertebral soft tissue anterior to the entire cervical spine, MRI cervical spine follow-up pre and postcontrast would best exclude prevertebral abscess Dictated By: Christian Cooper MD Signed By: <Electronically signed by Christian Cooper MD in OV> 12/12/241946 Medications / Prescriptions Medications or Prescriptions considered but not ordered:: none Medication administrations:: Medication Administration History Discontinued Medications Fentanyl Citrate (Fentanyl Cit Inj 50 Mcg/Ml Amp 2ml) 25 mcg IVP X1 ONE Stop: 12/12/24 20:13 Last Admin: 12/12/24 20:35 Dose: 25 mcg Documented By: EE Piperacillin Sod/Tazobactam (Sod 4.5 gm/ Sodium Chloride) 100 mls @ 200 mls/hr IV X1 ONE; Protocol Stop: 12/12/24 18:26 Last Infusion: 12/12/24 18:19 Dose: Infused Documented By: Admin: 12/12/24 18:19 Dose: 200 mls/hr Documented By: EF Vancomycin/Sodium Chloride (Vancomycin/Ns 1 Gm Ivpb) 200 mls @ 120 mls/hr IV X1 ONE Stop: 12/12/24 19:39 Last Infusion: 12/12/24 19:59 Dose: Infused Documented By: Admin: 12/12/24 18:18 Dose: 120 mls/hr Documented By: EF Methylprednisolone Sodium Succinate (Methylprednisolone Sod Succ 62.5 Mg/Ml 2ml Vial) 125 mg IVP X1 ONE Stop: 12/12/24 17:56 Last Admin: 12/12/24 18:18 Dose: 125 mg Documented By: EF Pharmacy Consult (Vancomycin Pharmacy To Dose 1 Each Each) 1 each IV X1 PRN PRN Reason: PROTOCOL Stop: 12/12/24 17:56 see above Consultations Consultation(s) initiated? (list below): Yes Diagnosis Weakness Differential Diagnosis: other (See MDM) Most likely diagnosis given after review of the tests above:: Nadir's angina Prevertebral soft tissue swelling Admission Indicated Admission indicated?: not indicated (Will transfer) Admission Request Was there a request for admission?: No Disposition Plan Disposition Plan: other (specify) (Signed out to Dr. Loja at 2300 pending final disposition.) Discharge Plan Prescriptions/Referrals Prescriptions/Med Rec: No Action gabapentin 600 mg Tablet 1,200 mg PO TID (DME) insulin syringe-needle U-100 [BD Insulin Syringe] 1 mL 28 gauge x 1/2 syringe See Rx Instructions .ROUTE .MEDSUPPLY Qty: 100 0RF Rx Instructions: As directed (DME) FreeStyle Zoey 2 Emerson Misc See Rx Instructions .Route Qty: 1 2RF Rx Instructions: As directed; once daily insulin glargine 100 unit/mL solution 10 unit subcut QPM Qty: 10 4RF insulin glargine 100 unit/mL (3 mL) insulin pen 10 unit subcut QPM Qty: 15 4RF (DME) FreeStyle Zoey 2 Sensor Kit See Rx Instructions .Route Qty: 1 3RF Rx Instructions: As directed once daily ibuprofen 800 mg tablet 800 mg PO TID PRN (Reason: pain) Qty: 20 0RF acetaminophen-codeine 300-30 mg tablet 1 tab PO Q12H PRN (Reason: pain) Qty: 14 0RF hydrocodone-acetaminophen 10-325 mg tablet 1 tab PO Q6H MDD 4 PRN (Reason: pain) Qty: 30 0RF hydroxyzine HCl 25 mg tablet 25 mg PO HS PRN (Reason: insom) Qty: 30 0RF (DME) blood pressure monitor [Blood Pressure Kit] Kit See Rx Instructions .Route Qty: 1 0RF Rx Instructions: As directed acetaminophen-codeine 300-30 mg tablet 2 tab PO Q8H MDD 6 PRN (Reason: pain) Qty: 20 0RF ibuprofen 400 mg tablet 400 mg PO Q8H PRN (Reason: pain) Qty: 30 0RF albuterol sulfate 90 mcg/actuation HFA aerosol inhaler 2 puff inhalation Q6H PRN (Reason: shortness of breath or wheezing) Qty: 8.5 0RF acetaminophen-codeine 300-30 mg tablet 1 tab PO Q8H PRN (Reason: pain) Qty: 20 0RF methocarbamol 500 mg tablet 500 mg PO BID PRN (Reason: pain) Qty: 14 0RF acetaminophen-codeine 300-30 mg tablet 1 tab PO Q8H PRN (Reason: pain) Qty: 20 0RF Referrals: Lesia Kramer MD [Primary Care Provider] - In 1 week Problem List Clinical Impression: Nadir angina, Facial swelling Patient/Caregiver Discharge Instructions Print Language: Luxembourgish
[2024-12-12 18:53] LABS: Sed Rate (ESR) 73 mm/hr (0-30)
[2024-12-12 18:55] LABS: Basophils # (Auto) 0.1 Thou/mm3 (0.0-0.2); Basophils % (Auto) 1 % (0-2.5); Eosinophils # (Auto) 0.2 Thou/mm3 (0.0-0.5); Eosinophils % (Auto) 2 % (0-10); Hematocrit 31.1 % (36.0-46.0); Hemoglobin 9.7 g/dL (12.0-16.0); Immature Granulocytes Auto 0.06 Thou/mm3 (0.00-0.00); Lymphocytes # (Auto) 1.3 Thou/mm3 (1.0-4.8); Lymphocytes % (Auto) 14 % (10-50); Mean Corpuscular HGB Conc 31.2 g/dl (31.0-37.0); Mean Corpuscular Hemoglobin 29.5 pg (25.0-35.0); Mean Corpuscular Volume 95 fL (80-100); Monocytes # (Auto) 0.7 Thou/mm3 (0.0-0.8); Monocytes % (Auto) 7 % (0-12); Neutrophils # (Auto) 6.8 Thou/mm3 (1.8-7.7); Neutrophils % (Auto) 75 % (37-80); Nucleated Red Blood Cell # 0.00 Thou/mm3 (0.00-0.00); Nucleated Red Blood Cell % 0 /100 WBC (0); Platelet Count 309 Thou/mm3 (140-440); RDW Standard Deviation 50.7 fL (36.4-46.3); Red Blood Count 3.29 Miln/mm3 (4.00-5.20); White Blood Count 9.1 Thou/mm3 (3.6-11.0)
[2024-12-12 19:12] LABS: INR 1.0 (0.9-1.3); Prothrombin Time 10.4 Seconds (9.0-12.2)
[2024-12-12 19:22] LABS: Alanine Aminotransferase 11 U/L (10-49); Albumin, Serum 3.9 gm/dL (3.5-5.0); Albumin/Globulin Ratio 1.3 (1.2-2.2); Alkaline Phosphatase 122 U/L (46-116); Anion Gap 12 (7-16); Aspartate Amino Transferase 25 U/L (0-34); BUN/Creatinine Ratio 6 Ratio (12-20); Bilirubin,Total 0.3 mg/dL (0.3-1.2); Blood Urea Nitrogen 32 mg/dL (9-23); C-Reactive Protein 4.0 mg/dL (0.0-0.9); Calcium 8.9 mg/dL (8.3-10.6); Calcium (Corrected) 9.0 mg/dL (8.5-10.1); Carbon Dioxide 29.8 mMol/L (20.0-31.0); Chloride 100 mMol/L (98-107); Creatinine (Component) 5.8 mg/dL (0.6-1.3); Estimated Creatinine Clearance 13.4 mL/min (>60); Globulin 3.0 gm/dL (2.3-3.5); Glucose 173 mg/dL (74-106); Osmolality,Calculated 294 (275-295); Potassium 3.9 mMol/L (3.4-5.1); Sodium 142 mMol/L (136-145); Total Protein 6.9 gm/dL (5.7-8.2); eGFR 8 See Note
[2024-12-12 20:18] VITALS: BP 178/94; PULSE 82; RESP 17; TEMP 37.1; O2SAT 98
[2024-12-12] MEDS: fentaNYL CIT INJ 50 mCg/ML AMP 2ML 25 MCG IVP (20:35)
[2024-12-12 22:00] VITALS: BP 159/85; O2SAT 98
[2024-12-12 23:00] VITALS: BP 155/77; O2SAT 88
--- NOTE | 2024-12-12 23:07 | PC.NURSE ---
Initiated transfer for ENT SERVICES, for possible ludwigs angina and deep space neck infection. [facility] declined because they do not have MRI services and They do not have ENT at the moment. [facility]s Juan from transfer center spoke to MD Escoto. They stated they would have their team review the case
--- NOTE | 2024-12-12 23:38 | PC.NURSE ---
[facility] transfer center requesting labs to be forwarded, images to be pushed and pictures to be sent all executed. Requesting a tele bed for this transfer
--- NOTE | 2024-12-12 23:42 | PD.EDADDENDU ---
Emergency Room Addendum <Sherrill Saldivar - Last Filed: 12/13/24 01:08> Addendum Narrative: I took over the care from previous shift physician, Dr. Escoto, on 11:30pm. See previous notes for complete H & P and ED course. I reviewed all diagnostic test results. Diagnoses include: Nadir angina Facial swelling I discussed the case with Dr. Flanagan, ENT from [facility]. About the presentation and exam and diagnostics and treatments here. And need of further care in the hospital there. Will accept the patient. Gregor Loja MD <Gregor Loja MD - Last Filed: 12/13/24 02:20> Addendum Narrative: I took over the care from previous shift physician, Dr. Escoto, at 11:30 PM on 12/12/24. See previous notes for complete H & P and ED course. I reviewed all diagnostic test results. Diagnoses include: Facial edema Prominent nasopharyngeal soft tissue Prominent cervical prevertebral soft tissue I discussed the case with Dr. Flanagan, ([facility] ENT). About the presentation and exam and diagnostics and treatments here. And need of further care there. Agreed to accept the patient. During my watch, the patient remained stable. Gregor Loja MD
[2024-12-13] VITALS: BP 154/84; PULSE 75; RESP 18; TEMP 37.2; O2SAT 95
--- NOTE | 2024-12-13 01:08 | PC.NURSE ---
PT HAS BEEN ACCEPTED TO [facility] @0106. ED TO ED MD TORRES REPORT TO BE CALLED TO [facility]
[2024-12-13 01:54] VITALS: BP 140/93; PULSE 74; RESP 19; TEMP 36.6; O2SAT 95
[2024-12-13 03:18] VITALS: BP 153/88; PULSE 81; RESP 18; TEMP 36.6; O2SAT 96
--- NOTE | 2024-12-13 03:43 | PC.NURSE ---
SPOKE TO LALITHA FROM [facility] AND GAVE HIM REPORT ON PT'S. INFORMED HIM PT'S ON HER WAY VIA EMS. ALL QUESTIONS ANSWERED.
== END 2024-12-13 03:38 | disposition short-term general hospital (02) ==
PROVIDERS: Emergency Medicine; Emergency Provider Emergency Medicine; PCP Family Medicine
DX: L02.11 Cutaneous abscess of neck (principal); K12.2 Cellulitis and abscess of mouth; K05.10 Chronic gingivitis, plaque induced; R22.1 Localized swelling, mass and lump, neck; E11.22 Type 2 diabetes mellitus with diabetic chronic kidney disease; I12.0 Hypertensive chronic kidney disease with stage 5 chronic kidney disease or end stage renal disease; J45.909 Unspecified asthma, uncomplicated; N18.6 End stage renal disease; Z99.2 Dependence on renal dialysis
CPT/HCPCS: 36415; 70491; 80053; 85025; 85610; 85652; 86140; 87040; 96365; 96366; 96375; 99283; A4649; J2543; J2919; J3010; J3373; Q9967

== ENCOUNTER 2024-12-27 17:50 | Emergency (ER) | payer MEDICAID, SELFPAY ==
--- NOTE | 2024-12-27 17:59 | EKG_ITS ---
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
[2024-12-27 18:48] VITALS: BP 158/82; PULSE 82; RESP 16; TEMP 36.9; O2SAT 97; BMI 34.8
--- NOTE | 2024-12-27 19:23 | PD.EDDIZZY ---
ED Dizzyness RME/HPI General Chief Complaint: Shortness of Breath/Dyspnea Stated Complaint: DIZZY, SOB Time Seen by Provider: 12/27/24 17:59 Arrival date/time: 12/27/24 17:50 RME / HPI RME / HPI Narrative: See [facility] for Dr. Loja's HPI Documentation. Related Data Home Medications ?Medication ?Instructions ?Recorded ?Confirmed gabapentin 600 mg tablet 1,200 mg PO TID 06/16/20 12/30/23 Previous Rx's ?Medication ?Instructions ?Recorded insulin syringe-needle U-100 1 mL #100 ea 02/22/20 28 gauge x 1/2 (BD Insulin Syringe) hydroxyzine HCl 25 mg tablet 25 mg PO HS PRN insom #30 tabs 06/06/23 blood pressure monitor (Blood #1 ea 06/28/23 Pressure Kit) flash glucose scanning reader #1 ea 01/13/24 (FreeStyle Zoey 2 [place]) flash glucose sensor (FreeStyle #1 ea 01/13/24 Zoye 2 Sensor kit) insulin glargine 100 unit/mL (3 10 unit (0.1 mL) subcut QPM #15 mL 01/13/24 mL) subcutaneous pen insulin glargine 100 unit/mL 10 unit (0.1 mL) subcut QPM #10 mL 01/13/24 subcutaneous solution acetaminophen 300 mg-codeine 30 mg 1 tab PO Q12H PRN pain #14 tabs 03/04/24 tablet ibuprofen 800 mg tablet 800 mg PO TID PRN pain #20 tabs 03/04/24 acetaminophen 300 mg-codeine 30 mg 2 tab PO Q8H PRN pain #20 tabs 10/26/24 tablet albuterol sulfate 90 mcg/actuation 2 puff inhalation Q6H PRN 10/26/24 aerosol inhaler shortness of breath or wheezing #8.5 grams ibuprofen 400 mg tablet 400 mg PO Q8H PRN pain #30 tabs 10/26/24 acetaminophen 300 mg-codeine 30 mg 1 tab PO Q8H PRN pain #20 tabs 11/18/24 tablet acetaminophen 300 mg-codeine 30 mg 1 tab PO Q8H PRN pain #20 tabs 11/18/24 tablet methocarbamol 500 mg tablet 500 mg PO BID PRN pain #14 tabs 11/18/24 hydrocodone 10 mg-acetaminophen 1 tab PO Q6H PRN pain #30 tabs 11/23/24 325 mg tablet Allergies Allergy/AdvReac Type Severity Reaction Status Date / Time No Known Allergies Allergy Verified 12/27/24 17:51 Review of Systems Review of Systems Systems Reviewed: All systems reviewed, normal except as documented Past Medical History Past Medical History CARDIAC: Positive Heart Murmur and Hypertension RESPIRATORY: Positive Asthma GASTROINTESTINAL: Positive Obesity GENITOURINARY: Positive Renal Disease and Dialysis REPRODUCTIVE: Positive Previous Pregnancies MUSCULOSKELETAL: Positive Arthritis and Osteomyelitis ENT: Positive Blind ENDOCRINE: Positive Endocrine Disorders and Diabetes Mellitus Type 2 PSYCHO/SOCIAL: Positive Bipolar Disorder, Depression and Anxiety OTHER HISTORY: Positive Hospitalization, Falls, Chicken Pox and Cancer Family History FAMILY HISTORY: Positive Family Cancer Surgical History SURGICAL: Positive Abdominal Surgery, Amputation and Section ED Exam Narrative Physical exam: See [facility] for Dr. Loja's Physical Exam Documentation. Course Quality Measures none Orders Category Date Time Status Bedside COVID-19 Antigen Test NOW Care 12/27/24 19:[address] Screening NOW Care 12/27/24 22:09 Active EKG (ED ONLY) *Do not use* NOW Care 12/27/24 17:[address] angio chest Stat Exams 12/27/24 22:09 Taken EKG (ED Only) Stat Exams 12/27/24 17:59 Draft US venous doppler LE BI Stat Exams 12/27/24 19:24 Completed US venous doppler UE BI Stat Exams 12/27/24 19:24 Completed XR chest 1V portable Stat Exams 12/27/24 19:24 Completed BNP [B-Type Natriuretic Peptide] Stat Lab 12/27/24 20:44 Completed Bilirubin,Direct Stat Lab 12/27/24 20:01 Completed Blood Culture (Lab) Stat Lab 12/27/24 20:06 Received CBC Stat Lab 12/27/24 20:01 Completed CMP [Comprehensive Metabolic Panel] Stat Lab 12/27/24 20:01 Completed CRP [C-Reactive Protein] Stat Lab 12/27/24 20:01 Completed D-Dimer Stat Lab 12/27/24 20:44 Completed ESR [Sed Rate (ESR)] Stat Lab 12/27/24 20:01 Completed HCG,Qualitative Serum Stat Lab 12/27/24 20:01 Completed Hemoglobin A1C [Glycohemoglobin w (eAG)] Stat Lab 12/27/24 20:01 Completed Lactate (Lactic Acid) Stat Lab 12/27/24 20:01 Completed Lipase Stat Lab 12/27/24 20:01 Completed Magnesium Stat Lab 12/27/24 20:01 Completed PT [Prothrombin Time with INR] Stat Lab 12/27/24 20:01 Completed PTT [Partial Thromboplastin Time] Stat Lab 12/27/24 20:01 Completed Procalcitonin Stat Lab 12/27/24 20:01 Completed Troponin I Stat Lab 12/27/24 20:01 Completed UA, C/S IF [Urinalysis, C/S if Indicated] Stat Lab 12/27/24 22:02 Completed VBG [Venous Blood Gas] Stat Lab 12/27/24 20:01 Completed Azithromycin Po [Zithromax PO] Med 12/28/24 01:31 Discontinued 500 mg PO X1 ONE Morphine* Inj Med 12/28/24 00:23 Discontinued 4 mg IV X1 ONE cefTRIAXone/D5w 1gm IV premix [Rocephin/D5w 1gm IV Med 12/28/24 01:31 Discontinued premix] 1 gm in 50 ml IV X1 Vital Signs Vital signs: Vital Signs Temperature 98.5 F 12/27/24 18:48 Pulse Rate 82 12/27/24 18:48 Respiratory Rate 16 12/27/24 18:48 Blood Pressure 158/82 H 12/27/24 18:48 Pulse Oximetry (%) 97 12/27/24 18:48 Oxygen Delivery Method Room Air 12/27/24 18:48 Dizziness MDM Narrative MDM Narrative:: This section includes all my notes and documentations, including HPI, PE, and ED course. Gregor Loja MD HPI: 49 y/o female here with cough and shortness of breath. Had dialysis earlier today. Was told she may have blood clots in her left arm. She reports swelling of her arms and legs. No obvious fever. No other complaints. ROS: All negative except as documented in HPI. Physical Exam: General: Alert and oriented. No acute distress when remaining still. Eyes: Conjunctivae and lids clear. ENT: No nasal congestion. Neck: Supple. Heart: RRR. Lungs: No respiratory distress. Good air movement with rales. Abdomen: Soft and nontender. Normal bowel sounds. No distension. No rebound or guarding. Back: No CVA tenderness. Skin: Warm and dry. Neuro: Alert and oriented X 3. I reviewed all diagnostic test results: My interpretation of the EKG is: Sinus rhythm (78 bpm) with nonspecific ST-T changes. My interpretation of the chest x-ray is infiltrates. My review of the Chest CTA report is LLL consolidation. My review of the Venous Doppler BUE report is: No DVT. My review of the Venous Doppler BLE report is: No DVT. Blood tests and urine tests remarkable for WBC 13, ESR 62, D-dimer 2650, Cr 4.3, CRP 6.1, and BNP 165. Covid: Negative. At this point, diagnoses include: Pneumonia ESRD Treatment here included: Morphine 4 mg IV Zithromax 500 mg IV Rocephin 1 G IV She remained stable. I discussed the case with patient's therapeutic recreation specialist, Dr. Moreland. About the presentation and exam and diagnostics and treatments here. And possible possible need of further care in the hospital due to IV contrast for chest CT. Will try to arrange outpatient dialysis for today. If not successful, patient needs hospitalization for dialysis. At 0600 on 12/28/2024, the care of the patient was transferred to Dr. Bourgeois. Gregor Loja MD Patient data External records reviewed:: [facility] previous records (Reviewed prior ED records from 12/12/24. Patient was seen for Facial swelling.) Clinical information provided by:: patient Social determinants that could affect healthcare access:: none Patient has the following chronic illnesses:: Heart Murmur, Hypertension, Asthma, Obesity, Renal Disease and Dialysis, Arthritis, Osteomyelitis, Blind, Diabetes Mellitus Type 2, Bipolar Disorder, Depression and Anxiety How is presenting disease/condition affected by chronic disease/condition?: exacerbated by Evaluation data The following diagnostics were reviewed and interpreted by me:: EKG tracing(s) (My interpretation of the EKG is: Sinus rhythm (78 bpm) with nonspecific ST-T changes. Gregor Loja MD) Lab and/or radiology exams considered but not ordered:: None Interpretation Summary: I reviewed all diagnostic test results: My interpretation of the EKG is: Sinus rhythm (78 bpm) with nonspecific ST-T changes. My interpretation of the chest x-ray is infiltrates. My review of the Chest CTA report is LLL consolidation. My review of the Venous Doppler BUE report is: No DVT. My review of the Venous Doppler BLE report is: No DVT. Blood tests and urine tests remarkable for WBC 13, ESR 62, D-dimer 2650, Cr 4.3, CRP 6.1, and BNP 165. Covid: Negative. Medications / Prescriptions Medications or Prescriptions considered but not ordered:: None Medication administrations:: Medication Administration History Discontinued Medications Azithromycin (Azithromycin 250 Mg Tablet) 500 mg PO X1 ONE Stop: 12/28/24 01:32 Last Admin: 12/28/24 02:18 Dose: 500 mg Documented By: AMAN Ceftriaxone Sodium/Dextrose (Rocephin/D5w 1gm Iv Premix) 1 gm in 50 mls @ 100 mls/hr IV X1 ONE Stop: 12/28/24 02:00 Last Infusion: 12/28/24 02:56 Dose: Infused Documented By: Admin: 12/28/24 02:18 Dose: 100 mls/hr Documented By: AMAN Morphine Sulfate (Morphine Sulf Inj 4 Mg/Ml Vial) 4 mg IV X1 ONE Stop: 12/28/24 00:24 Last Admin: 12/28/24 00:31 Dose: 4 mg Documented By: AMAN Treatment here included: Morphine 4 mg IV Zithromax 500 mg IV Rocephin 1 G IV Consultations Consultation(s) initiated? (list below): Yes Consultation #1 (Physician, Specialty, Details): I discussed the case with patient's therapeutic recreation specialist, Dr. Moreland. About the presentation and exam and diagnostics and treatments here. And possible possible need of further care in the hospital due to IV contrast for chest CT. Will try to arrange outpatient dialysis for today. If not successful, patient needs hospitalization for dialysis. Time: 01:27 Diagnosis Dizziness Differential Diagnosis: adverse reaction to drug, orthostatic hypotension and other (Pneumonia, Sepsis, Viral Illness) Most likely diagnosis given after review of the tests above:: At this point, diagnoses include: Pneumonia ESRD Admission Indicated Admission indicated?: not indicated Explain why admission is indicated or not indicated:: I discussed the case with patient's therapeutic recreation specialist, Dr. Moreland. About the presentation and exam and diagnostics and treatments here. And possible possible need of further care in the hospital due to IV contrast for chest CT. Will try to arrange outpatient dialysis for today. If not successful, patient needs hospitalization for dialysis. Admission Request Was there a request for admission?: No Disposition Plan Disposition Plan: other (specify) (At 0600 on 12/28/2024, the care of the patient was transferred to Dr. Bourgeois. ) Discharge Plan Prescriptions/Referrals Prescriptions/Med Rec: No Action gabapentin 600 mg Tablet 1,200 mg PO TID (DME) insulin syringe-needle U-100 [BD Insulin Syringe] 1 mL 28 gauge x 1/2 syringe See Rx Instructions .ROUTE .MEDSUPPLY Qty: 100 0RF Rx Instructions: As directed (DME) FreeStyle Zoey 2 [place] Misc See Rx Instructions .Route Qty: 1 2RF Rx Instructions: As directed; once daily insulin glargine 100 unit/mL solution 10 unit subcut QPM Qty: 10 4RF insulin glargine 100 unit/mL (3 mL) insulin pen 10 unit subcut QPM Qty: 15 4RF (DME) FreeStyle Zoey 2 Sensor Kit See Rx Instructions .Route Qty: 1 3RF Rx Instructions: As directed once daily ibuprofen 800 mg tablet 800 mg PO TID PRN (Reason: pain) Qty: 20 0RF acetaminophen-codeine 300-30 mg tablet 1 tab PO Q12H PRN (Reason: pain) Qty: 14 0RF hydrocodone-acetaminophen 10-325 mg tablet 1 tab PO Q6H MDD 4 PRN (Reason: pain) Qty: 30 0RF hydroxyzine HCl 25 mg tablet 25 mg PO HS PRN (Reason: insom) Qty: 30 0RF (DME) blood pressure monitor [Blood Pressure Kit] Kit See Rx Instructions .Route Qty: 1 0RF Rx Instructions: As directed acetaminophen-codeine 300-30 mg tablet 2 tab PO Q8H MDD 6 PRN (Reason: pain) Qty: 20 0RF ibuprofen 400 mg tablet 400 mg PO Q8H PRN (Reason: pain) Qty: 30 0RF albuterol sulfate 90 mcg/actuation HFA aerosol inhaler 2 puff inhalation Q6H PRN (Reason: shortness of breath or wheezing) Qty: 8.5 0RF acetaminophen-codeine 300-30 mg tablet 1 tab PO Q8H PRN (Reason: pain) Qty: 20 0RF methocarbamol 500 mg tablet 500 mg PO BID PRN (Reason: pain) Qty: 14 0RF acetaminophen-codeine 300-30 mg tablet 1 tab PO Q8H PRN (Reason: pain) Qty: 20 0RF Referrals: Santiago Saldivar MD [Primary Care Provider, Family Practice] - In 1 week Problem List Clinical Impression: Pneumonia, ESRD (end stage renal disease) Patient/Caregiver Discharge Instructions Print Language: Iranian
--- NOTE | 2024-12-27 19:24 | XR_ITS ---
EXAMINATION: PA chest single view TECHNIQUE: Upright PA chest single view Date and time: December 27, 2024, 1946 hours, comparison 11/08/2024 INDICATION: Shortness of breath today. FINDINGS: Right subclavian dialysis catheter tip proximal SVC Mild enlargement cardiac contour Mild vascular congestion. Pneumonia left base obscuring detail left hemidiaphragm with mild to moderate left pleural fluid Prominent osteopenia IMPRESSION: Mild enlargement cardiac contour Mild vascular congestion Pneumonia left base with mild to moderate left pleural fluid
--- NOTE | 2024-12-27 19:24 | XR_ITS ---
Examination: Venous duplex lower extremity sonogram, bilateral. Date and time of exam: December 27, 2024, 2039 hours INDICATIONS: Left leg swelling and pain today with elevated D-dimer on laboratory examination Technique: Multiple sonographic images of the deep venous system have been obtained. B-mode/2-D grayscale imaging of vascular structures and Doppler spectral analysis (waveforms) and color performed Both legs are examined. Findings: Deep venous systems do not demonstrate abnormal echogenicity. All visualized deep veins exhibit compressibility. All visualized deep veins exhibit augmentation. Impression: Negative for deep vein thrombosis
--- NOTE | 2024-12-27 19:24 | XR_ITS ---
Examination: Venous duplex upper extremity sonogram, bilateral. Date and time of exam: December 27, 2024, 2017 hours INDICATIONS: Arm edema and swelling today, with elevated D-dimer on laboratory examination Technique: Multiple sonographic images of the deep venous system have been obtained. B-mode/2-D grayscale imaging of vascular structures and Doppler spectral analysis (waveforms) and color performed Both legs are examined. Findings: Deep venous systems do not demonstrate abnormal echogenicity. All visualized deep veins exhibit compressibility. All visualized deep veins exhibit augmentation. Impression: Negative for deep vein thrombosis
[2024-12-27 20:19] LABS: Lactate (Lactic Acid) 1.3 mMol/L (0.4-2.0)
[2024-12-27 20:24] LABS: Base Excess, Venous 7 (-3-3); O2 Saturation, Venous 88 % (96-97); PCO2, Venous 39 mmHg (36-56); PO2, Venous 49 mmHg (15-58); pH, Venous 7.51 (7.33-7.66)
[2024-12-27 20:29] LABS: Basophils # (Auto) 0.1 Thou/mm3 (0.0-0.2); Basophils % (Auto) 1 % (0-2.5); Eosinophils # (Auto) 0.2 Thou/mm3 (0.0-0.5); Eosinophils % (Auto) 1 % (0-10); Hematocrit 32.7 % (36.0-46.0); Hemoglobin 10.1 g/dL (12.0-16.0); Immature Granulocytes Auto 0.29 Thou/mm3 (0.00-0.00); Lymphocytes # (Auto) 1.4 Thou/mm3 (1.0-4.8); Lymphocytes % (Auto) 11 % (10-50); Mean Corpuscular HGB Conc 30.9 g/dl (31.0-37.0); Mean Corpuscular Hemoglobin 29.9 pg (25.0-35.0); Mean Corpuscular Volume 97 fL (80-100); Monocytes # (Auto) 0.7 Thou/mm3 (0.0-0.8); Monocytes % (Auto) 6 % (0-12); Neutrophils # (Auto) 10.4 Thou/mm3 (1.8-7.7); Neutrophils % (Auto) 80 % (37-80); Nucleated Red Blood Cell # 0.00 Thou/mm3 (0.00-0.00); Nucleated Red Blood Cell % 0 /100 WBC (0); Platelet Count 238 Thou/mm3 (140-440); RDW Standard Deviation 58.1 fL (36.4-46.3); Red Blood Count 3.38 Miln/mm3 (4.00-5.20); White Blood Count 13.0 Thou/mm3 (3.6-11.0)
[2024-12-27 20:40] LABS: INR 1.0 (0.9-1.3); Partial Thromboplastin Time 28.0 Seconds (22.0-36.0); Prothrombin Time 10.4 Seconds (9.0-12.2)
[2024-12-27 21:00] LABS: Alanine Aminotransferase 29 U/L (10-49); Albumin, Serum 4.4 gm/dL (3.5-5.0); Albumin/Globulin Ratio 1.4 (1.2-2.2); Alkaline Phosphatase 152 U/L (46-116); Aspartate Amino Transferase 24 U/L (0-34); Bilirubin,Total 0.4 mg/dL (0.3-1.2); Calcium 9.2 mg/dL (8.3-10.6); Calcium (Corrected) 9.2 mg/dL (8.5-10.1); Carbon Dioxide 26.5 mMol/L (20.0-31.0); Creatinine (Component) 4.3 mg/dL (0.6-1.3); Estimated Creatinine Clearance 18.3 mL/min (>60); Globulin 3.2 gm/dL (2.3-3.5); Glucose 156 mg/dL (74-106); Lipase 20 U/L (12-53); Magnesium 2.1 mg/dL (1.6-2.6); Procalcitonin 0.42 ng/ml (0.0-0.49); Total Protein 7.6 gm/dL (5.7-8.2); Troponin I < 0.020 ng/mL (0.0-0.045); eGFR 12 See Note
[2024-12-27 21:06] LABS: Glucose Estimated Average 171 mg/dL (80-131); Hemoglobin A1C 7.6 % Hgb (4.8-6.0)
[2024-12-27 21:25] LABS: D-Dimer 2650 ng/mL (<600)
[2024-12-27 21:29] LABS: HCG,Qualitative Serum Negative
[2024-12-27 21:30] LABS: Bilirubin,Direct < 0.1 mg/dL (0.0-0.3); C-Reactive Protein 6.1 mg/dL (0.0-0.9); Chloride 100 mMol/L (98-107); Potassium 4.2 mMol/L (3.4-5.1)
[2024-12-27 21:30] LABS: B-Type Natriuretic Peptide 165 pg/mL (0-100)
[2024-12-27 21:33] LABS: Blood Urea Nitrogen 23 mg/dL (9-23)
[2024-12-27 21:34] LABS: Sed Rate (ESR) 62 mm/hr (0-30); Sodium 140 mMol/L (136-145)
[2024-12-27 21:35] LABS: Anion Gap 14 (7-16); BUN/Creatinine Ratio 5 Ratio (12-20); Osmolality,Calculated 286 (275-295)
--- NOTE | 2024-12-27 22:09 | XR_ITS ---
Examination: CTA chest with intravenous contrast 2-D reconstructions 3-D reconstructions, vascular Date and time of exam: 12/28/2024, 12:13 a.m. INDICATION: Shortness of breath and elevated D-dimer, dizziness COMPARISON: Chest CT 06/25/2023, chest radiograph 12/27/2024. CT abdomen pelvis CTDI: vol (mGy) 27.27 DLP: (mGycm) 492 Technique: Multiple axial sections of the thorax have been obtained. 3 mm slice thickness, from below the hemidiaphragms to above the apices of the lungs. Mediastinal and lung density settings have been obtained. 2-D sagittal and coronal reconstructions. 3-D angiographic renderings, 3-D volume renderings, 3D post processing, vascular maximum intensity projections obtained. Contrast administered is 100 mL of Isovue 370. Low dose protocols were performed. One or more of the following dose reduction techniques were used; automated exposure control, adjustment of the mA and/or KV according to patient size, use of iterative reconstruction technique. Findings: Diagnostic quality: Satisfactory. Pulmonary emboli: None seen Right heart strain: None Pulmonary arteries: Normal in caliber. Line/Tubes/Devices: Right central line is reidentified with its tip in the superior portion of the SVC. Lungs normal large airways and pleura: Patent large central airways. Small left and smaller right-sided pleural effusions are present. There is moderate atelectasis in the left lower lobe, and very mild atelectasis at the inferior lingular segment. The previously seen cavitary nodule in the posterolateral aspect of the left upper lobe with pleural tenting there is no longer cavitary but completely solid, and currently measures approximately 1.6 x 1.0 cm. It previously measured approximately 1.7 x 1.1 cm when remeasured. Its morphology is similar. No additional or new concerning lung nodules or masses are seen. No pneumothorax. 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 Multiple mildly prominent bile mediastinal lymph nodes are present which are likely reactive in etiology. No mass. Heart and great vessels: Heart size is within normal limits. Very small pericardial effusion is present. No thoracic aortic aneurysm or dissection. Pulmonary trunk measures approximately 2.9 cm in caliber. Chest wall, lower neck, axillae: Interval development of diffuse skin thickening of the breasts and subcutaneous edema in the breasts and axilla, greater on the left side. Multiple enlarged left axilla lymph nodes are also seen. A telephone claims representative left axillary lymph node measures nearly 1.4 cm short axis (axial image 21). Multiple collateral vessels are visualized within the chest wall, mostly left breast and just to the right of midline. Upper abdomen: Findings consistent with colitis are present at the partially imaged proximal descending colon. There are multiple mildly enlarged bilateral retroperitoneal lymph nodes as well. These are nonspecific. Probable radiofrequency ablation changes are present along the upper lateral cortex of the right kidney. No enhancing mass detected in the region. No hydronephrosis in the [id number]. Prominent left adrenal cystic nodule is reidentified, measuring approximate 3.2 cm AP, previously 3.4 cm AP. Cholecystectomy without evidence for concerning biliary ductal dilatation. Musculoskeletal: Multifocal degenerative changes with otherwise no evidence for recent fracture or aggressive lesion. IMPRESSION: Negative CTA for pulmonary emboli. Small left greater than right pleural effusions with moderate left lower lobe atelectasis and very mild inferior lingular atelectasis. Previously visualized cavitary nodule in the left upper lobe is minimally smaller and now completely solid in appearance when compared to the prior chest CT. 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 Edematous changes could be due to left innominate vein stenosis with development of collateral vasculature as well as mastitis or potentially inflammatory breast carcinoma. Interval development of indeterminate bilateral retroperitoneal lymphadenopathy. Posttreatment changes of the right kidney without evidence for local tumor recurrence. Dominant cystic left adrenal nodule identified without concerning change.
[2024-12-27 22:27] LABS: Collection Type, Urine Clean Catch
[2024-12-27 22:35] LABS: Bilirubin,Urine Negative (Negative); Blood,Urine 1+ (Negative); Clarity,Urine Turbid (Clear/Hazy); Color,Urine Yellow (Lt Yel-Yel); Culture Indicated,Urine Contaminated; Glucose, Urine 3+ (Negative); Hyaline Casts,Urine 1 /hpf (0-1); Ketones,Urine Negative (Negative); Leukocyte Esterase,Urine Positive (Negative); Nitrite,Urine Negative (Negative); PH,Urine 7.5 (5.0-7.0); Protein,Urine 3+ (Neg - Trace); RBC,Urine 5 /hpf (0-3); Specific Gravity,Urine 1.022 (1.001-1.035); Squamous Epithelial Cell,Urine 26 /hpf (0-5); Urobilinogen,Urine Negative mg/dL (0.0-1.0); WBC,Urine 13 /hpf (0-5)
[2024-12-27 22:43] VITALS: PULSE 80; RESP 16; TEMP 36.6; O2SAT 99
--- NOTE | 2024-12-27 22:54 | PC.NURSE ---
PT CALM WITH EYES CLOSED, THIS NURSE CALLED LAB TO COME DRAW PTS ORDERED LABS
--- NOTE | 2024-12-27 23:28 | PC.NURSE ---
[address] TO RETRIEVE PT NO ANSWER. WILL CALL BACK IN 10 MINUTES
[2024-12-28] VITALS (23 sets, daily range): BP systolic 128–178; BP diastolic 70–98; PULSE 69–87; RESP 13–20; TEMP 36.5–37.3; O2SAT 96–100
[2024-12-28] MEDS: MORPHINE SULF INJ 4 MG/ML VIAL IV (00:31)
--- NOTE | 2024-12-28 01:16 | PRELIM_ITS ---
CT angiogram of the chest with intravenous contrast (axial sections with sagittal and coronal reformats, 3D/MIP reconstructed images) December 28, 2024 0013 hours Clinical History: SOB and elevated D-dimer No prior study is available for comparison. Findings: There is no filling defect within the pulmonary artery divisions to suggest pulmonary thromboembolism. There are prominent mediastinal lymph nodes, largest measuring 1.4 x 1 cm in the right pretracheal region. Mildly prominent left axillary nodes are noted.The thoracic aorta is unremarkable. There is small pericardial effusion. There is mild cardiomegaly. There are small pleural effusions bilaterally, left greater than right, with underlying atelectasis. Consolidation with air bronchogram noted in the left lower lobe. There is a 1.4 x 1 cm soft tissue nodule in the left upper lobe, with adjacent ground-glass opacity and atelectasis. No evidence of pneumothorax. Osseous degenerative changes are noted. Generalised subcutaneous edema noted. The gallbladder is surgically absent. Indeterminate 3 cm left adrenal nodule is noted. There is mild thickening of the splenic flexure of colon with pericolonic fat stranding. The other visualized upper abdominal viscera are unremarkable. Impression: No evidence of pulmonary thromboembolism. Small pleural effusions bilaterally, left greater than right. Consolidation with air bronchogram in the left lower lobe. Left lung nodule. Recommend follow-up. Mild thickening of the splenic flexure of colon with pericolonic fat stranding. Findings are of concern for colitis. Recommend clinical correlation. Other findings as described above. Report Electronically Signed By: Kiran Peguero 12/28/2024 1:15:24 AM [EST]
[2024-12-28] MEDS: cefTRIAXone/D5w 1gm IV premix 1 GM/50 ML BAG IV (02:18)
[2024-12-28] MEDS: AZITHROMYCIN 250 MG TABLET 500 MG PO (02:18)
--- NOTE | 2024-12-28 07:45 | PC.NURSE ---
pt went to dialysis on floor and meal tray provided.
[2024-12-28] MEDS: HYDROcodone/APAP 5/325 TABLET 1 TAB PO (09:33)
--- NOTE | 2024-12-28 10:11 | PD.RESCONSUL ---
HPI Data of Consult Consult date: 12/28/24 Primary Care Provider: Santiago Saldivar MD Consult Narrative Reason for consult: ESRD HD History of present illness: Tati Costa 49F pmhx of insulin-dependent diabetes, hypertension, kidney cancer status post nephrectomy, diabetic foot ulcer status post amputations presented to the [facility] ED on 12/27 for blood clot at left upper extremity fistula and dialysis post IV contrast. Patient reports that yesterday at dialysis and she was told that she has a blood clot at left upper extremity fistula due to no venous return , however patient states that she did complete 3 hours of dialysis. Patient visited emergency room on 12/27 and was found to have elevated D-dimer of >2000 and underwent chest CTA. It was then decided to initiate extra dialysis session on 12/28. Chest CTA negative for pulm emboli however positive for L> R pleural effusions, cavitary nodule in left upper lobe is solid and minimally smaller than previous, and left axillary and bilateral retroperitoneal lymphadenopathy. Of note, patient also reports that 2 weeks ago she presented to the ED on 12/12 for lower jaw pain and was transferred to [facility] and all lower teeth were removed. Today she states that she is in significant jaw pain as well as noted a mass at bottom left gums that she woke up to yesterday, of which she states obstructs her breathing at times. Patient reports she was discharged with what she believes is amoxicillin however a physician recently changed antibiotics, which she is still taking. States that brother manages her medications. Currently patient endorses lower jaw pain and shortness of breath due to pain and obstruction . Denies chest pain, palpitations, nausea/vomiting or fever/chills. Medical history: As stated above Surgical history: Amputation, , abdominal surgery Allergies: NKDA Medications: Per med rec Family history: cancer in family Social history: Denies smoking cigarettes, drinking alcohol or using other illicit drugs cc:: cc: Review of Systems Review of Systems Systems Reviewed: All systems reviewed, normal except as documented Exam Vital Signs Temp Pulse Resp BP Pulse Ox O2 Del Method 98.4 F 72 15 159/80 H 98 Room Air 12/28/24 07:45 12/28/24 10:00 12/28/24 07:45 12/28/24 10:00 12/28/24 07:45 12/28/24 06:36 Narrative Exam GENERAL: AOx3, no acute distress HEENT: mucous membranes moist, bilateral sclera anicteric, absence of lower teeth, lower left sublingual mass present CARDIOVASCULAR: regular rate and rhythm, S1/S2 present, no murmurs appreciated, LAVF intact with palpable thrill PULMONARY: clear to auscultation bilaterally, no rales/rhonchi/wheezes ABDOMINAL: soft, non-tender, non-distended, no rebound/guarding, bowel sounds present EXTREMITIES: no peripheral edema SKIN: warm and dry, intact, no rashes NEURO: CN II-XII grossly intact, no focal deficits, alert, following commands Results Labs 12/27/24 20:01 12/27/24 20:01 Labs: Short CBC 12/27/24 Range/Units 20:01 WBC 13.0 H (3.6-11.0) Thou/mm3 Hgb 10.1 L (12.0-16.0) g/dL Hct 32.7 L (36.0-46.0) % Plt Count 238 D (140-440) Thou/mm3 BMP 12/27/24 20:01 Sodium 140 Potassium 4.2 Chloride 100 Carbon Dioxide 26.5 BUN 23 Creatinine 4.3 H* Glucose 156 H Calcium 9.2 Cardiac Enzymes 12/27/24 Range/Units 20:01 Troponin I < 0.020 (0.0-0.045) ng/mL Liver Function 12/27/24 Range/Units 20:01 Total Bilirubin 0.4 (0.3-1.2) mg/dL Direct Bilirubin < 0.1 (0.0-0.3) mg/dL AST 24 (0-34) U/L ALT 29 (10-49) U/L Alkaline Phosphatase 152 H (46-116) U/L Albumin 4.4 (3.5-5.0) gm/dL Urine 12/27/24 Range/Units 22:02 Urine Color Yellow (Lt Yel-Yel) Urine Clarity Turbid A (Clear/Hazy) Urine pH 7.5 H (5.0-7.0) Ur Specific [place] 1.022 (1.001-1.035) Urine Protein 3+ A (Neg - Trace) Urine Glucose (UA) 3+ A (Negative) ABG Interpretation ABG results: 12/27/24 20:01 VBG pH 7.51 VBG pCO2 39 VBG pO2 49 VBG Base Excess 7 H Quality Measures Quality Measures none Medications Home Medications and Allergies Home Medications ?Medication ?Instructions ?Recorded ?Confirmed ?Type gabapentin 600 mg tablet 1,200 mg PO TID 06/16/20 12/30/23 History Allergies Allergy/AdvReac Type Severity Reaction Status Date / Time No Known Allergies Allergy Verified 12/27/24 17:51 Visit Medications Discontinued Medications Hydrocodone Bitart/Acetaminophen (Hydrocodone/Apap 5/325 Tablet) 1 tab PO X1 ONE Stop: 12/28/24 09:28 Last Admin: 12/28/24 09:33 Dose: 1 tab Azithromycin (Azithromycin 250 Mg Tablet) 500 mg PO X1 ONE Stop: 12/28/24 01:32 Last Admin: 12/28/24 02:18 Dose: 500 mg Diphenhydramine HCl (Diphenhydramine Inj 50 Mg/Ml Vial) 25 mg IVP X1 ONE Stop: 12/28/24 08:14 Last Admin: 12/28/24 08:21 Dose: 25 mg Ceftriaxone Sodium/Dextrose (Rocephin/D5w 1gm Iv Premix) 1 gm in 50 mls @ 100 mls/hr IV X1 ONE Stop: 12/28/24 02:00 Last Infusion: 12/28/24 02:56 Dose: Infused Morphine Sulfate (Morphine Sulf Inj 4 Mg/Ml Vial) 4 mg IV X1 ONE Stop: 12/28/24 00:24 Last Admin: 12/28/24 00:31 Dose: 4 mg Assessment & Plan Plan Tati Igor 49F pmhx of ESRD on HD, insulin-dependent diabetes, hypertension, kidney cancer status post nephrectomy, diabetic foot ulcer status post amputations presented to the [facility] ED on 12/27 for blood clot at left upper extremity fistula and dialysis post IV contrast from chest CTA iso elevated D-dimer. #ESRD on HD thru LAVF (M/W/F) On day prior to admission, at dialysis and she was told that she has a blood clot at left upper extremity fistula due to no venous return , however patient states that she did complete 3 hours of dialysis. Admission D-dimer of >2000 and underwent chest CTA. Chest CTA negative for pulm emboli however positive for L> R pleural effusions, cavitary nodule in left upper lobe is solid and minimally smaller than previous, and left axillary and bilateral retroperitoneal lymphadenopathy. It was then decided to initiate extra dialysis session on 12/28. Ddimer likely elevated 2/2 hypercoagulable state of ESRD Plan: - HD today - Renally dose and avoid nephrotoxic medication Thank you for the consultation and participation in patient's care. Plan of care discussed with attending Dr. Moreland. Olivia Jacinto, PGY-1 Internal Medicine Attending Provider Attestation/Addendum Patient seen and examined with resident physician Dr. Jacinto. Note reviewed, agree with findings and recommendations. Patient currently seen on dialysis. Tolerating dialysis without any problems. Hemodialysis for 3 hours, 2K, ultrafiltration 2-3 L, Epogen 6000, no heparin ordered. Plan of care discussed with the dialysis nurse. Please see dialysis flowsheet for further details.
[2024-12-28] MEDS: EPOETIN ALFA-EPBX INJ 10,000 UNIT/ML VIAL (NON-ESRD) 10000 UNIT IV (10:35)
--- NOTE | 2024-12-28 11:03 | PD.EDADDENDU ---
Emergency Room Addendum Addendum Narrative: 0600: Care assumed from Dr. Loja, the previous shift emergency physician. Past medical, surgical, social and family history reviewed. Vitals and home medications reviewed. I will assume the care of the patient at this time, pending call back from patients rubber roller grinder Dr. Moreland and final disposition. Please refer to the emergency department record for history and examination from initial visit.?The following addendum documentation note is intended to reflect any pending information, findings, or radiology results not included in the patient?s initial chart. I spoke with rubber roller grinder Dr. Moreland. States she will schedule for dialysis to be performed in house this morning. Patient returned from dialysis which she successfully completed, had 2.2L of fluid removed. Reports feeling improved. Will DC home.
--- NOTE | 2024-12-28 11:24 | PC.NURSE ---
pt back from dialysis they removed 2.0L pt tolerated well. epogen 10,000units, Benadryl 25mg ivp, [place] 5/325mg given in over at dialysis.
--- NOTE | 2024-12-28 12:50 | PC.CC ---
1230-ASW was asked by assigned RN to arrange transportation home for the pt. ASW arranged transportation via [employer]. ASW will update assigned RN if an [employer] ride has been accepted.
--- NOTE | 2024-12-28 12:50 | PC.NURSE ---
PLAN REP, YAIMA, MADE AWARE PT NEEDING A RIDE AT THIS TIME FOR TRANSPORTATION BACK HOME. PER YAIMA, WILL WORK ON GETTING RIDE FOR PT BACK HOME.
== END 2024-12-28 14:06 | disposition home or self-care (01) ==
PROVIDERS: Emergency Medicine; Emergency Provider Emergency Medicine; PCP Family Medicine
DX: J18.9 Pneumonia, unspecified organism (principal); E11.22 Type 2 diabetes mellitus with diabetic chronic kidney disease; E11.621 Type 2 diabetes mellitus with foot ulcer; I12.0 Hypertensive chronic kidney disease with stage 5 chronic kidney disease or end stage renal disease; J90 Pleural effusion, not elsewhere classified; N18.6 End stage renal disease; Z99.2 Dependence on renal dialysis
CPT/HCPCS: 36415; 71045; 71275; 80053; 81001; 82248; 82803; 83036; 83605; 83690; 83735; 83880; 84145; 84484; 84703; 85025; 85379; 85610; 85652; 85730; 86140; 87040; 87502; 87635; 90935; 93005; 93970; 96365; 96375; 99284; A4649; J0696; J1200; J2270; Q5106; Q9967; A9270; G0257

== ENCOUNTER 2025-01-24 17:19 | Emergency (ER) | payer MEDICAID, SELFPAY ==
[2025-01-24 17:22] VITALS: PULSE 85; O2SAT 96
--- NOTE | 2025-01-24 17:24 | XR_ITS ---
Examination: CT soft tissue neck, with intravenous contrast. 2-D coronal reconstructions. 2-D sagittal reconstructions. Date and time of exam : January 24, 2025, 2106 hours, comparison December 12, 2024 INDICATIONS: Neck swelling beginning this morning, prominent nasopharyngeal soft tissue on CT soft tissue neck December 12, 2024 with prominent prevertebral soft tissue. CTDI: vol (mGy): 15.7 DLP: (mGycm): 331 Technique: 1.25 mm axial sections of the neck of the obtained. Coronal and sagittal reconstructions have been obtained. Intravenous contrast administered 50 cc Isovue-370. Low dose protocols were performed. One or more of the following dose reduction techniques were used; automated exposure control, adjustment of the mA and/or KV according to patient size, use of iterative reconstruction technique. Findings: Edema prominent around both parotid glands, more severe left parotid gland Heavy common carotid vascular calcification No nasopharyngeal or oropharyngeal abscess The larynx appears normal Epiglottis is not thickened There remains mild prevertebral soft tissue prominence Bilateral thyroid nodules, the largest on the right side 10 mm Incidental note minimal right and at least moderate left pleural fluid IMPRESSION: Findings most consistent with significant bilateral parotitis, clinical correlation advised Significant left pleural fluid Thyroid nodules
--- NOTE | 2025-01-24 17:24 | EDNOTE_ITS ---
ED General RME/HPI General Chief complaint: General Adult/Misc Complain Stated complaint: FACIAL SWELLING/PAIN Time Seen by Provider: 01/24/25 17:25 Arrival date/time: 01/24/25 17:19 RME / HPI RME / HPI narrative: 49 year old female with history of hypertension, IDDM, kidney cancer s/p nephrectomy, presents to the ED BIBA from home for evaluation of facial swelling and anterior neck swelling beginning today. Accompanied by pain to the anterior neck area also beginning this morning. Reportedly has experienced similar facial swelling two months ago and evaluated here where she was transferred to [facility]. States while at [facility] she received IV medications and had several teeth pulled with improvement in facial swelling. States she had been doing relatively well until this morning. Patient denies fevers, chills, sweats, cough, difficulty breathing or swallowing. Per EMR review, the patient was evaluated here on 12/12/2024 for facial swelling and diagnosed with Nadir's angina and prevertebral swelling and subsequently transferred to [facility]. Related Data Home Medications ?Medication ?Instructions ?Recorded ?Confirmed gabapentin 600 mg tablet 1,200 mg PO TID 06/16/2007/17 Previous Rx's ?Medication ?Instructions ?Recorded hydroxyzine HCl 25 mg tablet 25 mg PO HS PRN insom #30 tabs 06/06/23 blood pressure monitor (Blood #1 ea 06/28/23 Pressure Kit) flash glucose scanning reader #1 ea 01/13/24 (FreeStyle Zoey 2 [place]) flash glucose sensor (FreeStyle #1 ea 01/13/24 Zoey 2 Sensor kit) insulin glargine 100 unit/mL 10 unit (0.1 mL) subcut Q PM #10 mL 01/13/24 subcutaneous solution albuterol sulfate 90 mcg/actuation 2 puff inhalation Q 6H PRN 10/26/24 aerosol inhaler shortness of breath or wheez ing #8.5 grams methocarbamol 500 mg tablet 500 mg PO BID PRN pain #14 tabs 11/18/24 hydrocodone 10 mg-acetaminophen 1 tab PO Q6H PRN pain #30 tabs 11/23/24 325 mg tablet Allergies Allergy/AdvReac Type Severity Reaction Status Date / Time No Known Allergies Allergy Verified 01/24/25 17:27 Review of Systems Review of Systems Systems Reviewed: All systems reviewed, normal except as documented Past Medical History Past Medical History CARDIAC: Positive Heart Murmur and Hypertension RESPIRATORY: Positive Asthma GASTROINTESTINAL: Positive Obesity GENITOURINARY: Positive Renal Disease and Dialysis REPRODUCTIVE: Positive Previous Pregnancies MUSCULOSKELETAL: Positive Arthritis and Osteomyelitis ENT: Positive Blind ENDOCRINE: Positive Endocrine Disorders and Diabetes Mellitus Type 2 PSYCHO/SOCIAL: Positive Bipolar Disorder, Depression and Anxiety OTHER HISTORY: Positive Hospitalization, Falls, Chicken Pox and Cancer Family History FAMILY HISTORY: Positive Family Cancer Surgical History SURGICAL: Positive Abdominal Surgery, Nephrectomy (HALF OF RIGHT KIDNEY GONE), Amputation (3RD 4TH AND 5TH TOE OF RIGHT FOOT GONE, HALF OF LEFT BIG TOE GONE) a nd Section (X3) Social History SMOKING STATUS: Never smoker SECOND HAND EXPOSURE: No SUBSTANCE USE: does not use ED Exam Narrative Physical exam: GENERAL APPEARANCE: alert and oriented x 4, well-developed, well-nourished, no acute distress HEENT: Normocephalic, atraumatic; pupils equal, round, reactive to light; EOMI; mucous membranes pink, moist; oropharynx clear; there is soft tissue swelling of the anterior neck area with tenderness, no erythema though does have increased warmth NECK: Supple LUNGS: CTABL; no wheezes, no rales, no rhonchi HEART: Regular rate, regular rhythm; normal S1, S2; no murmurs ABDOMEN: non distended; normal BS; soft, no tenderness, no guarding, no rebound; no masses, no organomegaly, no hernia BACK: no CVA tenderness EXTREMITIES: atraumatic; no edema NEUROLOGIC: awake; alert and oriented x4; cranial nerves II-XII grossly intact; no focal sensory or motor deficits PSYCHIATRIC: appropriate mood and affect SKIN: warm, dry, normal color; no rashes Course Quality Measures none Orders Category Date Time Status CT Screening NOW Care 01/24/25 17:24 Completed EKG (ED ONLY) *Do not use* NOW Care 01/24/25 18:[address] soft tissue neck w con Stat Exams 01/24/25 17:24 Completed EKG (ED Only) Stat Exams 01/24/25 18:28 Draft XR chest 1V portable Stat Exams 01/24/25 18:28 Completed B-Type Natriuretic Peptide Stat Lab 01/24/25 19:51 Completed Blood Culture (Lab) Stat Lab 01/24/25 19:46 Received CBC Stat Lab 01/24/25 19:51 Completed Comprehensive Metabolic Panel Stat Lab 01/24/25 19:51 Completed HCG Qualitative,Urine Stat Lab 01/24/25 18:30 Completed Lactate (Lactic Acid) Stat Lab 01/24/25 19:51 Completed Lipase Stat Lab 01/24/25 19:51 Completed Magnesium Stat Lab 01/24/25 19:51 Completed Partial Thromboplastin Time Stat Lab 01/24/25 19:51 Completed Procalcitonin Stat Lab 01/24/25 19:51 Completed Prothrombin Time with INR Stat Lab 01/24/25 19:51 Completed Troponin I Stat Lab 01/24/25 19:51 Completed Urinalysis Stat Lab 01/24/25 18:30 Completed Urine Culture Stat Lab 01/24/25 18:30 Received Dexamethasone Inj [Decadron Inj] Med 01/24/25 21:44 Discontinued 10 mg IVP X1 ONE HYDROcodone/APAP 10/325 [[place] 10/325] Med 01/24/25 19:48 Discontinued 1 tab PO X1 ONE Morphine* Inj Med 01/24/25 21:40 Discontinued 4 mg IVP X1 ONE Vital Signs Vital signs: Vital Signs Temperature 98.6 F 01/24/25 17:28 Pulse Rate 86 01/24/25 17:28 Respiratory Rate 16 01/24/25 17:28 Blood Pressure 197/98 H 01/24/25 17:28 Pulse Oximetry (%) 98 01/24/25 17:28 Oxygen Delivery Method Room Air 01/24/25 17:28 Pulse ox is 98% on room air which is adequate. Discharge Plan Plan Patient Disposition: HOME (Self Care) Patient condition on transfer: Stable Prescriptions/Referrals Prescriptions/Med Rec: No Action gabapentin 600 mg Tablet 1,200 mg PO TID (DME) FreeStyle Zoey 2 [place] Misc See Rx Instructions .Route Qty: 1 2RF Rx Instructions: As directed; once daily insulin glargine 100 unit/mL solution 10 unit subcut QPM Qty: 10 4RF (DME) FreeStyle Zoey 2 Sensor Kit See Rx Instructions .Route Qty: 1 3RF Rx Instructions: As directed once daily hydrocodone-acetaminophen 10-325 mg tablet 1 tab PO Q6H MDD 4 PRN (Reason: pain) Qty: 30 0RF hydroxyzine HCl 25 mg tablet 25 mg PO HS PRN (Reason: insom) Qty: 30 0RF (DME) blood pressure monitor [Blood Pressure Kit] Kit See Rx Instructions .Route Qty: 1 0RF Rx Instructions: As directed albuterol sulfate 90 mcg/actuation HFA aerosol inhaler 2 puff inhalation Q6H PRN (Reason: shortness of breath or wheezing) Qty: 8.5 0RF methocarbamol 500 mg tablet 500 mg PO BID PRN (Reason: pain) Qty: 14 0RF Referrals: Lesia Kramer MD [Primary Care Provider] - 01/26/25 Problem List Clinical Impression: Parotid gland fullness Patient/Caregiver Discharge Instructions Education Materials: ED Salivary Gland Swelling ... Additional Instructions: Please use sour candy or lemon candy to help with the parotid swelling. Please return to Emergency Department for worsening symptoms, or any other concerns. Print Language: Italian Stand Alone Forms: Monik Award Info., Patient Portal Info Letter MDM Narrative Sign Out note: 1800: Patient signed out to Dr. Polk pending CT, labs, and final disposition. [facility] hospital course (for use when minimal MDM required): Dona Rice am scribing for and in the presence of Dr. Bourgeois. Clinical Information Provided by: patient and EMS Medical Records reviewed [facility] and EMS Meds/Rx considered, not ordered None Labs/Rad/Tests considered, not ordered None Chronic Illness/Social Conditions which may negatively complicate care or outcome(s)-explain: None or not applicable Labs Lab(s) Interpretation(s): CBC remarkable for Hgb of 10.2 though chronically anemic CMP is remarkable for creatinine of 4.4, eGFR 12, BNP 217 Imaging Imaging Interpretation(s): Images ordered and are pending during sign out Medication Administration(s) Medication Administration History Discontinued Medications Hydrocodone Bitart/Acetaminophen (Hydrocodone/Apap 10/325 Tab) 1 tab PO X1 ONE Stop: 01/24/25 19:49 Last Admin: 01/24/25 20:07 Dose: 1 tab Documented By: CB Dexamethasone Sodium Phosphate (Dexamethasone Sod Phos Inj 10 Mg/Ml Vial) 10 mg IVP X1 ONE Stop: 01/24/25 21:45 Last Admin: 01/24/25 22:08 Dose: 10 mg Documented By: EE Morphine Sulfate (Morphine Sulf Inj 4 Mg/Ml Vial) 4 mg IVP X1 ONE Stop: 01/24/25 21:41 Last Admin: 01/24/25 22:08 Dose: 4 mg Documented By: LULY See above Diagnosis Diagnoses ruled out and/or further discussions: Facial swelling
[2025-01-24 17:28] VITALS: BP 197/98; PULSE 86; RESP 16; TEMP 37; O2SAT 98
--- NOTE | 2025-01-24 18:23 | PC.NURSE ---
PT BIBA FOR FACIAL/THROAT SWELLING. PT DENIES ANY DIFFICULTY BREATHING.
--- NOTE | 2025-01-24 18:28 | EKG_ITS ---
[facility] Test Date: 2025-01-24 Pat Name: ARVIN FUNEZ Department: Room: - Gender: Female [employer] Brusher: : 1975 Requested By: Miley De La Garza Order Number: [id number] Reading MD: Miley De La Garza Measurements Intervals [place] Rate: 74 P: AK: QRS: 19 QRSD: 81 T: 193 QT: 387 QTc: 430 Interpretive Statements ATRIAL FIBRILLATION ST DEVIATION AND MODERATE T-WAVE ABNORMALITY, CONSIDER ANTEROLATERAL ISCHEMIA [-0.1+ mV T-WAVE IN V3-V6] ST DEVIATION AND MODERATE T-WAVE ABNORMALITY, CONSIDER INFERIOR ISCHEMIA [-0.1+ mV T-WAVE IN II/aVF] Compared to ECG 12/27/2024 18:59:52 T-wave abnormality now present Possible ischemia now present Sinus rhythm no longer present Sinus arrhythmia no longer present Myocardial infarct finding no longer present /store/S0/[id number].pdf
--- NOTE | 2025-01-24 18:28 | XR_ITS ---
EXAMINATION: AP chest single view TECHNIQUE: AP portable sitting chest single view Date and time: January 24, 2025, 1843 hours, comparison December 27, 2024 INDICATIONS: Chest pain today. FINDINGS: Significant left base pneumonia, obscuring detail left hemidiaphragm Moderate left pleural effusion Mild heart failure with prominent vascular congestion and early perihilar edema The patient's right subclavian dialysis catheter is prominently retracted IMPRESSION: Mild heart failure Significant left base pneumonia The patient's dialysis catheter needs to be advanced
--- NOTE | 2025-01-24 18:41 | PD.EDADDENDU ---
Emergency Room Addendum <Sherrill Saldivar - Last Filed: 01/24/25 22:07> Addendum Narrative: 1830: Care assumed from Dr. Bourgeois, the previous shift emergency physician. Past medical, surgical, social and family history reviewed. Vitals and home medications reviewed. Results and treatment plan discussed. I will assume the care of the patient at this time and will follow the patient. Please refer to the emergency department record for history and examination from initial visit. WBC normal, HnH 10.6/33.8, PT/INR/PTT normal, Creatinine 4.4 (chronic), Lactic Acid normal, Troponin normal, BNP 217, Lipase normal, Procalcitonin normal, HCG negative. EKG done at 1942, aFib,rate of 74, poor baseline, QTc: 414, according to my interpretation. Patient is communicating normally, not drooling, and is afebrile at this time. Patient is stable to be discharged home. RADIOLOGY RESULTS: [facility] Report Signed Patient: ARVIN FUNEZ [facility]. Record#: [id number] Birthdate: 1975 Age/Sex: 49 / F Location: [facility] Attending Dr: Ordering Physician: Miley Bourgeois MD Date of Service: 01/24/25 Procedure(s): XR chest 1V portable Accession Number(s): [id number] cc: Christian Cooper MD; Miley Bourgeois MD~ EXAMINATION: AP chest single view TECHNIQUE: AP portable sitting chest single view Date and time: January 24, 2025, 1843 hours, comparison December 27, 2024 INDICATIONS: Chest pain today. FINDINGS: Significant left base pneumonia, obscuring detail left hemidiaphragm Moderate left pleural effusion Mild heart failure with prominent vascular congestion and early perihilar edema The patient's right subclavian dialysis catheter is prominently retracted IMPRESSION: Mild heart failure Significant left base pneumonia The patient's dialysis catheter needs to be advanced Dictated By: Christian Cooper MD Signed By: <Electronically signed by Christian Cooper MD in OV> 01/24/25 1903 [facility] Report Signed Patient: ARVIN FUNEZ [facility]. Record#: [id number] Birthdate: 1975 Age/Sex: 49 / F Location: [facility] Attending Dr: Ordering Physician: Miley Bourgeois MD Date of Service: 01/24/25 Procedure(s): CT soft tissue neck w con Accession Number(s): [id number] cc: Christian Cooper MD; Lesia Kramer MD; Miley Bourgeois MD~ Examination: CT soft tissue neck, with intravenous contrast. 2-D coronal reconstructions. 2-D sagittal reconstructions. Date and time of exam : January 24, 2025, 2106 hours, comparison December 12, 2024 INDICATIONS: Neck swelling beginning this morning, prominent nasopharyngeal soft tissue on CT soft tissue neck December 12, 2024 with prominent prevertebral soft tissue. CTDI: vol (mGy): 15.7 DLP: (mGycm): 331 Technique: 1.25 mm axial sections of the neck of the obtained. Coronal and sagittal reconstructions have been obtained. Intravenous contrast administered 50 cc Isovue-370. Low dose protocols were performed. One or more of the following dose reduction techniques were used; automated exposure control, adjustment of the mA and/or KV according to patient size, use of iterative reconstruction technique. Findings: Edema prominent around both parotid glands, more severe left parotid gland Heavy common carotid vascular calcification No nasopharyngeal or oropharyngeal abscess The larynx appears normal Epiglottis is not thickened There remains mild prevertebral soft tissue prominence Bilateral thyroid nodules, the largest on the right side 10 mm Incidental note minimal right and at least moderate left pleural fluid IMPRESSION: Findings most consistent with significant bilateral parotitis, clinical correlation advised Significant left pleural fluid Thyroid nodules Dictated By: Christian Cooper MD Signed By: <Electronically signed by Christian Cooper MD in OV> 01/24/252131 <Carolyn Polk MD - Last Filed: 01/24/25 22:07> Addendum Narrative: 1830: Care assumed from Dr. Bourgeois, the previous shift emergency physician. Past medical, surgical, social and family history reviewed. Vitals and home medications reviewed. Results and treatment plan discussed. I will assume the care of the patient at this time and will follow the patient. Please refer to the emergency department record for history and examination from initial visit. Patient seen and examined. Tolerating saliva. Otherwise no hoarseness. Patient is not febrile here in the emergency department. Will treat symptomatically. WBC normal, HnH 10.6/33.8, PT/INR/PTT normal, Creatinine 4.4 (chronic), Lactic Acid normal, Troponin normal, BNP 217, Lipase normal, Procalcitonin normal, HCG negative. EKG done at 1942, aFib,rate of 74, poor baseline, QTc: 414, according to my interpretation. Patient is communicating normally, not drooling, and is afebrile at this time. Patient is stable to be discharged home. RADIOLOGY RESULTS: [facility] Report Signed Patient: ARVIN FUNEZ [facility]. Record#: [id number] Birthdate: 1975 Age/Sex: 49 / F Location: [facility] Attending Dr: Ordering Physician: Miley Bourgeois MD Date of Service: 01/24/25 Procedure(s): XR chest 1V portable Accession Number(s): [id number] cc: Christian Cooper MD; Miley Bourgeois MD~ EXAMINATION: AP chest single view TECHNIQUE: AP portable sitting chest single view Date and time: January 24, 2025, 1843 hours, comparison December 27, 2024 INDICATIONS: Chest pain today. FINDINGS: Significant left base pneumonia, obscuring detail left hemidiaphragm Moderate left pleural effusion Mild heart failure with prominent vascular congestion and early perihilar edema The patient's right subclavian dialysis catheter is prominently retracted IMPRESSION: Mild heart failure Significant left base pneumonia The patient's dialysis catheter needs to be advanced Dictated By: Christian Cooper MD Signed By: <Electronically signed by Christian Cooper MD in OV> 01/24/25 190 [facility] Report Signed Patient: ARVIN FUNEZ [facility]. Record#: [id number] Birthdate: 1975 Age/Sex: 49 / F Location: [facility] Attending Dr: Ordering Physician: Miley Bourgeois MD Date of Service: 01/24/25 Procedure(s): CT soft tissue neck w con Accession Number(s): [id number] cc: Christian Cooper MD; Lesia Kramer MD; Miley Bourgeois MD~ Examination: CT soft tissue neck, with intravenous contrast. 2-D coronal reconstructions. 2-D sagittal reconstructions. Date and time of exam : January 24, 2025, 2106 hours, comparison December 12, 2024 INDICATIONS: Neck swelling beginning this morning, prominent nasopharyngeal soft tissue on CT soft tissue neck December 12, 2024 with prominent prevertebral soft tissue. CTDI: vol (mGy): 15.7 DLP: (mGycm): 331 Technique: 1.25 mm axial sections of the neck of the obtained. Coronal and sagittal reconstructions have been obtained. Intravenous contrast administered 50 cc Isovue-370. Low dose protocols were performed. One or more of the following dose reduction techniques were used; automated exposure control, adjustment of the mA and/or KV according to patient size, use of iterative reconstruction technique. Findings: Edema prominent around both parotid glands, more severe left parotid gland Heavy common carotid vascular calcification No nasopharyngeal or oropharyngeal abscess The larynx appears normal Epiglottis is not thickened There remains mild prevertebral soft tissue prominence Bilateral thyroid nodules, the largest on the right side 10 mm Incidental note minimal right and at least moderate left pleural fluid IMPRESSION: Findings most consistent with significant bilateral parotitis, clinical correlation advised Significant left pleural fluid Thyroid nodules Dictated By: Christian Cooper MD Signed By: <Electronically signed by Christian Cooper MD in OV> 01/24/25 2694
[2025-01-24 18:47] LABS: Collection Type, Urine Clean Catch
--- NOTE | 2025-01-24 18:48 | PC.NURSE ---
IV ATTEMPTED X 2 BY ELIZABETH ESTRADA W/O NO SUCCESS. WILL ANOTHER NURSE TO TRY. PT IS A VERY HARD STICK. ONLY ABLE TO USE R) ARM.
[2025-01-24 19:07] LABS: Bacteria,Urine Rare; Bilirubin,Urine Negative (Negative); Blood,Urine Negative (Negative); Clarity,Urine Clear (Clear/Hazy); Color,Urine Yellow (Lt Yel-Yel); Glucose, Urine 2+ (Negative); Hyaline Casts,Urine 1 /hpf (0-1); Ketones,Urine Trace (Negative); Leukocyte Esterase,Urine Negative (Negative); Nitrite,Urine Negative (Negative); PH,Urine 8.0 (5.0-7.0); Protein,Urine 3+ (Neg - Trace); RBC,Urine 2 /hpf (0-3); Specific Gravity,Urine 1.026 (1.001-1.035); Squamous Epithelial Cell,Urine 12 /hpf (0-5); Urobilinogen,Urine Negative mg/dL (0.0-1.0); WBC,Urine 5 /hpf (0-5)
[2025-01-24 19:43] LABS: HCG Qualitative,Urine Negative
[2025-01-24 19:59] LABS: Basophils # (Auto) 0.1 Thou/mm3 (0.0-0.2); Basophils % (Auto) 1 % (0-2.5); Eosinophils # (Auto) 0.2 Thou/mm3 (0.0-0.5); Eosinophils % (Auto) 2 % (0-10); Hematocrit 33.8 % (36.0-46.0); Hemoglobin 10.6 g/dL (12.0-16.0); Immature Granulocytes Auto 0.09 Thou/mm3 (0.00-0.00); Lactate (Lactic Acid) 0.8 mMol/L (0.4-2.0); Lymphocytes # (Auto) 1.6 Thou/mm3 (1.0-4.8); Lymphocytes % (Auto) 19 % (10-50); Mean Corpuscular HGB Conc 31.4 g/dl (31.0-37.0); Mean Corpuscular Hemoglobin 30.8 pg (25.0-35.0); Mean Corpuscular Volume 98 fL (80-100); Monocytes # (Auto) 0.8 Thou/mm3 (0.0-0.8); Monocytes % (Auto) 10 % (0-12); Neutrophils # (Auto) 5.8 Thou/mm3 (1.8-7.7); Neutrophils % (Auto) 67 % (37-80); Nucleated Red Blood Cell # 0.00 Thou/mm3 (0.00-0.00); Nucleated Red Blood Cell % 0 /100 WBC (0); Platelet Count 283 Thou/mm3 (140-440); RDW Standard Deviation 65.0 fL (36.4-46.3); Red Blood Count 3.44 Miln/mm3 (4.00-5.20); White Blood Count 8.6 Thou/mm3 (3.6-11.0)
[2025-01-24 20:24] LABS: INR 1.0 (0.9-1.3); Partial Thromboplastin Time 27.9 Seconds (22.0-36.0); Prothrombin Time 10.5 Seconds (9.0-12.2)
[2025-01-24 20:25] LABS: B-Type Natriuretic Peptide 217 pg/mL (0-100)
[2025-01-24 20:35] LABS: Alanine Aminotransferase < 7 U/L (10-49); Albumin, Serum 4.2 gm/dL (3.5-5.0); Albumin/Globulin Ratio 1.1 (1.2-2.2); Alkaline Phosphatase 125 U/L (46-116); Anion Gap 10 (7-16); Aspartate Amino Transferase 18 U/L (0-34); BUN/Creatinine Ratio 5 Ratio (12-20); Bilirubin,Total 0.3 mg/dL (0.3-1.2); Blood Urea Nitrogen 20 mg/dL (9-23); Calcium 9.0 mg/dL (8.3-10.6); Calcium (Corrected) 9.0 mg/dL (8.5-10.1); Carbon Dioxide 33.6 mMol/L (20.0-31.0); Chloride 99 mMol/L (98-107); Creatinine (Component) 4.4 mg/dL (0.6-1.3); Estimated Creatinine Clearance 2.3 mL/min (>60); Globulin 4.0 gm/dL (2.3-3.5); Glucose 102 mg/dL (74-106); Lipase 26 U/L (12-53); Magnesium 2.2 mg/dL (1.6-2.6); Osmolality,Calculated 287 (275-295); Potassium 3.7 mMol/L (3.4-5.1); Procalcitonin 0.14 ng/ml (0.0-0.49); Sodium 143 mMol/L (136-145); Total Protein 8.2 gm/dL (5.7-8.2); Troponin I < 0.020 ng/mL (0.0-0.045); eGFR 12 See Note
[2025-01-24 21:41] VITALS: BP 220/104; PULSE 75; RESP 16; TEMP 36.7; O2SAT 99
[2025-01-24] MEDS: DEXAMETHASONE SOD PHOS INJ 10 MG/ML VIAL IVP (22:08)
[2025-01-24] MEDS: MORPHINE SULF INJ 4 MG/ML VIAL IVP (22:08)
[2025-01-24 22:41] VITALS: BP 190/85; PULSE 67; RESP 16; TEMP 36.9; O2SAT 97
== END 2025-01-24 23:56 | disposition home or self-care (01) ==
PROVIDERS: Emergency Medicine; Emergency Provider Emergency Medicine; PCP Family Medicine
DX: E04.2 Nontoxic multinodular goiter (principal); J18.9 Pneumonia, unspecified organism; I11.0 Hypertensive heart disease with heart failure; I50.9 Heart failure, unspecified; I48.91 Unspecified atrial fibrillation; J94.8 Other specified pleural conditions
CPT/HCPCS: 36415; 70491; 71045; 80053; 81001; 81025; 83605; 83690; 83735; 83880; 84145; 84484; 85025; 85610; 85730; 87040; 87086; 93005; 96374; 96375; 99284; A4649; J1100; J2270; Q9967; A9270

== ENCOUNTER 2025-01-28 00:35 | Emergency (ER) | payer MEDICAID, SELFPAY ==
[2025-01-28] VITALS (16 sets, daily range): BP systolic 143–240; BP diastolic 73–119; PULSE 77–89; RESP 10–21; TEMP 36.9–37; O2SAT 95–99; BMI 36.6
--- NOTE | 2025-01-28 02:18 | EDNOTE_ITS ---
ED Allergic Reaction RME/HPI General Chief complaint: Allergic Reaction Stated complaint: FACIAL SWELLING Time Seen by Provider: 01/28/25 02:03 Arrival date/time: 01/28/25 00:35 RME / HPI RME / HPI narrative: Dr. Vernon?s Main ED Evaluation: 49yo female with known ESRD, HTN, renal CA s/p nephrectomy who was seen here 4 days [employer] with facial and anterior neck swelling. Patient has previously diagnosed Nadir's angina. Now presenting with increased swelling of the neck and face extending up to the periorbital region. Also complains of painful swallowing. No difficulty breathing, fever, vomiting, or diarrhea. Related Data Home Medications ?Medication ?Instructions ?Recorded ?Confirmed gabapentin 600 mg tablet 1,200 mg PO TID 06/16/2007/17 nifedipine 60 mg tablet,extended mg PO 01/28/25 release 24 hr valsartan 160 mg tablet mg 01/28/25 Previous Rx's ?Medication ?Instructions ?Recorded hydroxyzine HCl 25 mg tablet 25 mg PO HS PRN insom #30 tabs 06/06/23 blood pressure monitor (Blood #1 ea 06/28/23 Pressure Kit) flash glucose scanning reader #1 ea 01/13/24 (FreeStyle Zoey 2 [place]) flash glucose sensor (FreeStyle #1 ea 01/13/24 Zoey 2 Sensor kit) insulin glargine 100 unit/mL 10 unit (0.1 mL) subcut Q PM #10 mL 01/13/24 subcutaneous solution albuterol sulfate 90 mcg/actuation 2 puff inhalation Q 6H PRN 10/26/24 aerosol inhaler shortness of breath or wheez ing #8.5 grams methocarbamol 500 mg tablet 500 mg PO BID PRN pain #14 tabs 11/18/24 hydrocodone 10 mg-acetaminophen 1 tab PO Q6H PRN pain #30 tabs 11/23/24 325 mg tablet acetaminophen 120 mg-codeine 12 5 ml PO Q6H PRN pain # 120 mL 01/28/25 mg/5 mL oral solution amoxicillin 600 mg-potassium 7.5 ml PO BID 10 days #15 0 mL 01/28/25 clavulanate 42.9 mg/5 mL oral suspension (Augmentin ES-) nitroglycerin 0.3 mg/hr 0.4 mg topical DAILY #30 ea 01/28/25 transdermal 24 hour patch (Nitro-Dur) prednisolone 15 mg/5 mL oral 30 mg (10 mL) PO QDAY 5 d ays #50 mL 01/28/25 solution Allergies Allergy/AdvReac Type Severity Reaction Status Date / Time No Known Allergies Allergy Verified 01/24/25 17:27 Review of Systems Review of Systems Systems Reviewed: All systems reviewed, normal except as documented ED Exam Narrative Physical exam: GENERAL APPEARANCE: alert and oriented x 4, well-developed, well-nourished, no acute distress VITALS: All vitals were reviewed and the pulse ox is 98% on room air, which is normal according to my interpretation. Markedly hypertensive. HEENT: Normocephalic, atraumatic; pupils equal, round, reactive to light; EOMI; mucous membranes pink, moist; 2+ diffuse generalized facial edema, tongue appears to be elevated with sublingual edema NECK: Supple, notably enlarged without overlying erythema, induration, or warmth; no stridor LUNGS: CTABL; no wheezes, no rales, no rhonchi HEART: Regular rate, regular rhythm; normal S1, S2; no murmurs ABDOMEN: non distended; normal BS; soft, no tenderness, no guarding, no rebound; no masses, no organomegaly, no hernia BACK: no CVA tenderness EXTREMITIES: atraumatic; no edema NEUROLOGIC: awake; alert and oriented x4; cranial nerves II-XII grossly intact; no focal sensory or motor deficits PSYCHIATRIC: appropriate mood and affect SKIN: warm, dry, normal color; no rashes Course Quality Measures none Orders Category Date Time Status CT Screening NOW Care 01/28/25 02:[address] Screening X1 Care 01/28/25 02:[address] soft tissue neck w con Stat Exams 01/28/25 02:46 Taken XR chest 1V portable Stat Exams 01/28/25 04:42 Taken ABG [Arterial Blood Gas] Stat Lab 01/28/25 05:07 Ordered CBC [CBC] Stat Lab 01/28/25 02:14 Completed CMP [Comprehensive Metabolic Panel] Stat Lab 01/28/25 02:14 Completed Urinalysis, C/S if Indicated Stat Lab 01/28/25 02:05 Ordered Clindamycin 900Mg Ivpb [Cleocin/D5w Ivpb] 900 mg Med 01/28/25 02:44 Discontinued Pre-Mixed [Pre-mixed Bag] 1 bag IV X1 Morphine* Inj Med 01/28/25 02:27 Discontinued 4 mg IVP X1 ONE Nitroglycerin Oint 2% [Nitro-paste Oint 2%] Med 01/28/25 05:06 Discontinued 1 inch TOP X1 ONE Prochlorperazine Inj [Compazine Inj] Med 01/28/25 02:27 Discontinued 5 mg IV X1 ONE cefTRIAXone/D5w 1gm IV premix [Rocephin/D5w 1gm IV Med 01/28/25 02:45 Discontinued premix] 1 gm in 50 ml IV X1 dexAMETHasone INJ [Decadron Inj] Med 01/28/25 02:05 Discontinued 10 mg IVP X1 ONE hydrALAZINE INJ [Apresoline Inj] Med 01/28/25 02:27 Discontinued 10 mg IVP X1 ONE hydrALAZINE INJ [Apresoline Inj] Med 01/28/25 05:06 Discontinued 10 mg IVP X1 ONE Vital Signs Vital signs: Vital Signs Temperature 98.6 F 01/28/25 01:27 Pulse Rate 84 01/28/25 01:27 Respiratory Rate 10 L 01/28/25 01:27 Blood Pressure 197/96 H 01/28/25 01:27 Pulse Oximetry (%) 98 01/28/25 01:27 Oxygen Delivery Method Room Air 01/28/25 01:27 Allergic Reaction MDM Narrative MDM Narrative:: Scribe Attestation: 01/28/25 - Sherrill Rice am scribing for and in the presence of Dr. Vernon. 49yo female with known ESRD, HTN, renal CA s/p nephrectomy who was seen here 4 days [employer] with facial and anterior neck swelling. Patient has previously diagnosed Nadir's angina. Now presenting with increased swelling of the neck and face extending up to the periorbital region. Please see PE findings. Lab m arkers demonstrated marginally elevated WBC count 11.1, HnH 10/33, Plt 218, no left shift or bandemia. Chemistries are at baseline, normal K level. CXR demonstrates fluid overload. Patient notably hypertensive, placed on environmental monitoring specialist, IV established, and received incremental doses of antihypertensives with gradual reduction of blood pressure. Patient was treated aggressively with IV steroids/dual IV antibiotics and underwent follow-up CT soft tissue neck without obvious abscess or airway impingement. Patient observed for extended period of time. Top nitrates were added to antihypertensive therapy. After extended period of observation, patient is considered stable for discharge. No signs of dysphagia or difficulty breathing. Patient will require close follow-up for dialysis due to [id number] fluid overload. Will place on course of steroids and antibiotics for soft tissue infection. Dx: CHF exacerbation, parotitis Patient data External records reviewed:: [facility] previous records (Per chart review, patient was seen here on 01/24/25 for parotid gland fullness.) Clinical information provided by:: patient Social determinants that could affect healthcare access:: none Patient has the following chronic illnesses:: ESRD, DM, HTN, renal CA s/p nephrectomy How is presenting disease/condition affected by chronic disease/condition?: uneffected by Evaluation data The following diagnostics were reviewed and interpreted by me:: lab results and radiology exam(s) (CXR shows cardiomegaly, pulmonary venous congestion, no gross pleural effusions, according to my interpretation.) Lab and/or radiology exams considered but not ordered:: none Interpretation Summary: [facility] Preliminary Report Draft Patient: ARVIN FUNEZ. Record#: [id number] Birthdate: 1975 Age/Sex: 49 / F [facility] Attending Dr: Ordering Physician: Date of Service: Procedure(s): Accession Number(s): cc: ~ CT scan of the neck with intravenous contrast (axial sections with sagittal and coronal reformats) January 28, 2025 at 0314 hours Clinical History: R/o abscess. Comparison: No prior study is available for comparison. Findings: The nasopharynx, oropharynx, hypopharynx, supraglottic and infraglottic larynx, vocal cords and upper trachea are unremarkable. The epiglottis and aryepiglottic folds appear unremarkable. Mild edematous changes are seen in subcutaneous plane of face and neck (left > right), likely due to cellulitic changes. No enhancing lesion or fluid collection is identified. The vessels of the neck are well opacified. No filling defect is seen. Degenerative changes are identified in the spine. There is polypoidal mucosal thickening in both maxillary sinuses. There are bilateral pleural effusions. Impression: Unremarkable CT scan of the neck. Mild edematous changes in subcutaneous plane of face and neck, likely due to cellulitic changes. Bilateral pleural effusions. Report Electronically Signed By: Mili Cantor 01/28/2025 4:10:28 AM [EST] Medications / Prescriptions Medications or Prescriptions considered but not ordered:: none Medication administrations:: Medication Administration History Discontinued Medications Dexamethasone Sodium Phosphate (Dexamethasone Sod Phos Inj 10 Mg/Ml Vial) 10 mg IVP X1 ONE Stop: 01/28/25 02:06 Last Admin: 01/28/25 02:21 Dose: 10 mg Documented By: ZOIE Hydralazine HCl (Hydralazine Inj 20 Mg/Ml Vial) 10 mg IVP X1 ONE Stop: 01/28/25 02:28 Last Admin: 01/28/25 02:35 Dose: 10 mg Documented By: ZOIE Hydralazine HCl (Hydralazine Inj 20 Mg/Ml Vial) 10 mg IVP X1 ONE Stop: 01/28/25 05:07 Last Admin: 01/28/25 05:19 Dose: 10 mg Documented By: ZOIE Ceftriaxone Sodium/Dextrose (Rocephin/D5w 1gm Iv Premix) 1 gm in 50 mls @ 100 mls/hr IV X1 ONE Stop: 01/28/25 03:14 Last Infusion: 01/28/25 03:39 Dose: Infused Documented By: Admin: 01/28/25 02:52 Dose: 100 mls/hr Documented By: ZOIE Clindamycin Phosphate 900 mg/ (IV Miscellaneous Supplies) 50 mls @ 50 mls/hr IV X1 ONE Stop: 01/28/25 03:43 Last Infusion: 01/28/25 04:18 Dose: Infused Documented By: Admin: 01/28/25 02:53 Dose: 50 mls/hr Documented By: ZOIE Morphine Sulfate (Morphine Sulf Inj 4 Mg/Ml Vial) 4 mg IVP X1 ONE Stop: 01/28/25 02:28 Last Admin: 01/28/25 02:35 Dose: 4 mg Documented By: ZOIE Nitroglycerin (Nitroglycerin Oint 2% 1 Inch Packet) 1 inch TOP X1 ONE Stop: 01/28/25 05:07 Last Admin: 01/28/25 05:20 Dose: 1 inch Documented By: ZOIE Prochlorperazine Edisylate (Prochlorperazine Inj 5 Mg/Ml Vial 2 Ml) 5 mg IV X1 ONE; Protocol Stop: 01/28/25 02:28 Last Admin: 01/28/25 02:35 Dose: 5 mg Documented By: BR see above Consultations Consultation(s) initiated? (list below): No Diagnosis Differential Diagnosis allergic reaction: allergic reaction, angioedema and other (cellulitis, abscess, other soft tissue infection) Most likely diagnosis given after review of the tests above:: see clinical impression below Admission Indicated Admission indicated?: not indicated Admission Request Was there a request for admission?: No Disposition Plan Disposition Plan: Discharge Discharge Attestation Discharge Attestation: The patient and all family members were given an opportunity to ask questions and understood the discharge instructions. Discharge instructions specifically effects, indications for sooner follow up or return to the emergency department, and the expected course of current diagnosis. Patient condition: Stable Discharge Plan Plan Patient Disposition: HOME (Self Care) Discharge Disposition comment: Stable Prescriptions/Referrals Prescriptions/Med Rec: New Nitro-Dur 0.3 mg/hr patch 24 hour 0.4 mg topical DAILY Qty: 30 0RF Rx Instructions: Apply at 6pm each day and remove at 12 noon the following day and repeat amoxicillin-pot clavulanate [Augmentin ES-600] 600-42.9 mg/5 mL suspension for reconstitution 7.5 ml PO BID 10 Days Qty: 150 0RF prednisolone 15 mg/5 mL solution 30 mg PO QDAY 5 Days Qty: 50 0RF acetaminophen-codeine 120-12 mg/5 mL solution 5 ml PO Q6H PRN (Reason: pain) Qty: 120 0RF No Action gabapentin 600 mg Tablet 1,200 mg PO TID (DME) FreeStyle Zoey 2 [place] Misc See Rx Instructions .Route Qty: 1 2RF Rx Instructions: As directed; once daily insulin glargine 100 unit/mL solution 10 unit subcut QPM Qty: 10 4RF (DME) FreeStyle Zoey 2 Sensor Kit See Rx Instructions .Route Qty: 1 3RF Rx Instructions: As directed once daily hydrocodone-acetaminophen 10-325 mg tablet 1 tab PO Q6H MDD 4 PRN (Reason: pain) Qty: 30 0RF nifedipine 60 mg tablet extended release 24hr PO Patient Comments: TAKE 1 TABLET BY MOUTH EVERY DAY valsartan 160 mg tablet Patient Comments: TAKE 1 TABLET BY MOUTH EVERY DAY hydroxyzine HCl 25 mg tablet 25 mg PO HS PRN (Reason: insom) Qty: 30 0RF (DME) blood pressure monitor [Blood Pressure Kit] Kit See Rx Instructions .Route Qty: 1 0RF Rx Instructions: As directed albuterol sulfate 90 mcg/actuation HFA aerosol inhaler 2 puff inhalation Q6H PRN (Reason: shortness of breath or wheezing) Qty: 8.5 0RF methocarbamol 500 mg tablet 500 mg PO BID PRN (Reason: pain) Qty: 14 0RF Problem List Clinical Impression: CHF exacerbation, Acute parotitis Impression comment: CHF exacerbation/parotitis/end-stage renal disease on dialysis Patient/Caregiver Discharge Instructions Discharge Activity: activity as tolerated Other Activity Instructions:: Follow-up with dialysis at 11 AM as scheduled. Additional Instructions: Will add Nitropatch to be applied at 1800 daily and removed at 1200 the following day to repeat again at 1800/follow-up with dialysis at 11 AM today. Additional medications as directed. Return for difficulty swallowing breathing or worsening illness. Print Language: Northern Irish Stand Alone Forms: Monik Award Info., Patient Portal Info Letter
[2025-01-28 02:28] LABS: Basophils # (Auto) 0.1 Thou/mm3 (0.0-0.2); Basophils % (Auto) 1 % (0-2.5); Eosinophils # (Auto) 0.3 Thou/mm3 (0.0-0.5); Eosinophils % (Auto) 3 % (0-10); Hematocrit 33.7 % (36.0-46.0); Hemoglobin 10.3 g/dL (12.0-16.0); Immature Granulocytes Auto 0.08 Thou/mm3 (0.00-0.00); Lymphocytes # (Auto) 1.9 Thou/mm3 (1.0-4.8); Lymphocytes % (Auto) 17 % (10-50); Mean Corpuscular HGB Conc 30.6 g/dl (31.0-37.0); Mean Corpuscular Hemoglobin 30.5 pg (25.0-35.0); Mean Corpuscular Volume 100 fL (80-100); Monocytes # (Auto) 1.2 Thou/mm3 (0.0-0.8); Monocytes % (Auto) 11 % (0-12); Neutrophils # (Auto) 7.6 Thou/mm3 (1.8-7.7); Neutrophils % (Auto) 68 % (37-80); Nucleated Red Blood Cell # 0.00 Thou/mm3 (0.00-0.00); Nucleated Red Blood Cell % 0 /100 WBC (0); Platelet Count 218 Thou/mm3 (140-440); RDW Standard Deviation 66.4 fL (36.4-46.3); Red Blood Count 3.38 Miln/mm3 (4.00-5.20); White Blood Count 11.1 Thou/mm3 (3.6-11.0)
[2025-01-28] MEDS: PROCHLORPERAZINE INJ 5 MG/ML VIAL 2 ML IV (02:35)
[2025-01-28] MEDS: hydrALAZINE INJ 20 MG/ML VIAL 10 MG IVP ×2 (02:35→05:19)
[2025-01-28] MEDS: MORPHINE SULF INJ 4 MG/ML VIAL IVP (02:35)
[2025-01-28 02:45] LABS: Alanine Aminotransferase 8 U/L (10-49); Albumin, Serum 4.2 gm/dL (3.5-5.0); Albumin/Globulin Ratio 1.3 (1.2-2.2); Alkaline Phosphatase 126 U/L (46-116); Anion Gap 11 (7-16); Aspartate Amino Transferase 16 U/L (0-34); BUN/Creatinine Ratio 7 Ratio (12-20); Bilirubin,Total 0.3 mg/dL (0.3-1.2); Blood Urea Nitrogen 47 mg/dL (9-23); Calcium 8.8 mg/dL (8.3-10.6); Calcium (Corrected) 8.8 mg/dL (8.5-10.1); Carbon Dioxide 30.8 mMol/L (20.0-31.0); Chloride 99 mMol/L (98-107); Creatinine (Component) 6.8 mg/dL (0.6-1.3); Estimated Creatinine Clearance 11.5 mL/min (>60); Globulin 3.3 gm/dL (2.3-3.5); Glucose 176 mg/dL (74-106); Osmolality,Calculated 297 (275-295); Potassium 4.2 mMol/L (3.4-5.1); Sodium 141 mMol/L (136-145); Total Protein 7.5 gm/dL (5.7-8.2); eGFR 7 See Note
--- NOTE | 2025-01-28 02:46 | XR_ITS ---
Examination: CT soft tissue neck, with intravenous contrast. 2-D coronal reconstructions. 2-D sagittal reconstructions. Date and time of exam : January 28, 2025, 0314 hours, comparison January 24, 2025 INDICATIONS: Left-sided facial swelling and pain beginning 2 hours ago. CTDI: vol (mGy): 16.72 DLP: (mGycm): 537 Technique: 1.25 mm axial sections of the neck of the obtained. Coronal and sagittal reconstructions have been obtained. Intravenous contrast administered 50 cc Isovue-370. Low dose protocols were performed. One or more of the following dose reduction techniques were used; automated exposure control, adjustment of the mA and/or KV according to patient size, use of iterative reconstruction technique. Findings: Mild cellulitis pattern in the soft tissue of the left face No soft tissue abscess No cortical bone obstruction Large retention cyst right maxillary antrum Symmetrical nasopharynx oropharynx no tonsillar abscess Mildly larger left parotid gland with adjacent inflammatory change No pathologic carotid triangle lymphadenopathy Normal epiglottis IMPRESSION: Diffuse left face cellulitis pattern which may relate to left parotitis, clinical correlation advised No soft tissue facial abscess Incidental note significant left pleural fluid
[2025-01-28] MEDS: cefTRIAXone/D5w 1gm IV premix 1 GM/50 ML BAG IV (02:52)
[2025-01-28] MEDS: CLINDAMYCIN 900MG IVPB 900 MG in PRE-MIXED 1 BAG 50 MG IV (02:53)
--- NOTE | 2025-01-28 04:10 | PRELIM_ITS ---
CT scan of the neck with intravenous contrast (axial sections with sagittal and coronal reformats) January 28, 2025 at 0314 hours Clinical History: R/o abscess. Comparison: No prior study is available for comparison. Findings: The nasopharynx, oropharynx, hypopharynx, supraglottic and infraglottic larynx, vocal cords and upper trachea are unremarkable. The epiglottis and aryepiglottic folds appear unremarkable. Mild edematous changes are seen in subcutaneous plane of face and neck (left > right), likely due to cellulitic changes. No enhancing lesion or fluid collection is identified. The vessels of the neck are well opacified. No filling defect is seen. Degenerative changes are identified in the spine. There is polypoidal mucosal thickening in both maxillary sinuses. There are bilateral pleural effusions. Impression: Unremarkable CT scan of the neck. Mild edematous changes in subcutaneous plane of face and neck, likely due to cellulitic changes. Bilateral pleural effusions. Report Electronically Signed By: Mili Cantor 01/28/2025 4:10:28 AM [EST]
--- NOTE | 2025-01-28 04:42 | XR_ITS ---
EXAMINATION: AP chest single view TECHNIQUE: AP portable semiupright chest single view Date and time: January 28, 2025, 0443 hours, comparison January 24, 2025 INDICATIONS: Shortness of breath tonight FINDINGS: Moderate heart failure Mild enlargement cardiac contour Prominent vascular congestion with perihilar basilar edema Partially retracted right subclavian dialysis catheter in stable position IMPRESSION: Worsening heart failure, currently moderate
[2025-01-28] MEDS: NITROGLYCERIN OINT 2% 1 INCH PACKET TOP (05:20)
== END 2025-01-28 09:14 | disposition home or self-care (01) ==
LOC: SERX 07:30
PROVIDERS: Emergency Provider Emergency Medicine; PCP Family Medicine
DX: I13.2 Hypertensive heart and chronic kidney disease with heart failure and with stage 5 chronic kidney disease, or end stage renal disease (principal); I50.9 Heart failure, unspecified; K11.21 Acute sialoadenitis; Z90.5 Acquired absence of kidney
CPT/HCPCS: 36415; 36600; 70491; 71045; 80053; 81001; 82803; 85025; 96365; 96375; 99284; A4649; J0360; J0696; J0736; J0780; J1100; J2270; Q9967; A9270

== ENCOUNTER 2025-01-31 11:47 | Emergency (ER) | payer MEDICAID, SELFPAY ==
[2025-01-31] VITALS (8 sets, daily range): BP systolic 144–201; BP diastolic 73–128; PULSE 75–85; RESP 16–18; TEMP 36.4–36.8; O2SAT 94–97; BMI 36.6
--- NOTE | 2025-01-31 12:17 | EDNOTE_ITS ---
ED Dental RME/HPI General Chief complaint: [facility] Compl[facility] Stated complaint: THROAT INFECTION Time Seen by Provider: 01/31/25 12:09 Arrival date/time: 01/31/25 11:47 RME / HPI RME / HPI Narrative: 49 year old female with history of hypertension, IDDM, kidney cancer s/p nephrectomy, presents to the ED BIBA from home for evaluation of facial swelling and anterior neck swelling beginning today. Accompanied by pain to the anterior neck area also beginning this morning. Reportedly had been evaluated here November of this year for similar swelling and transferred to [facility] diagnosed with Nadir's angina and prevertebral swelling; states during that time she was hospitalized for ~ 1 week and symptoms had improved with IV medications. States she had been doing relatively well until 01/24/2025 where she noticed the swelling had returned. Was evaluated here and discharged home. States she returned on 01/28/2025 with similar swelling and again was discharged home. States yesterday she was doing okay until this morning where she noted to have difficulty breathing. Patient denies fevers, chills, sweats, cough. Related Data Home Medications ?Medication ?Instructions ?Recorded ?Confirmed gabapentin 600 mg tablet 1,200 mg PO TID 06/16/2007/17 nifedipine 60 mg tablet,extended mg PO 01/28/25 release 24 hr valsartan 160 mg tablet mg 01/28/25 Previous Rx's ?Medication ?Instructions ?Recorded hydroxyzine HCl 25 mg tablet 25 mg PO HS PRN insom #30 tabs 06/06/23 blood pressure monitor (Blood #1 ea 06/28/23 Pressure Kit) flash glucose scanning reader #1 ea 01/13/24 (FreeStyle Zoey 2 [place]) flash glucose sensor (FreeStyle #1 ea 01/13/24 Zoey 2 Sensor kit) insulin glargine 100 unit/mL 10 unit (0.1 mL) subcut Q PM #10 mL 01/13/24 subcutaneous solution albuterol sulfate 90 mcg/actuation 2 puff inhalation Q 6H PRN 10/26/24 aerosol inhaler shortness of breath or wheez ing #8.5 grams methocarbamol 500 mg tablet 500 mg PO BID PRN pain #14 tabs 11/18/24 hydrocodone 10 mg-acetaminophen 1 tab PO Q6H PRN pain #30 tabs 11/23/24 325 mg tablet acetaminophen 120 mg-codeine 12 5 ml PO Q6H PRN pain # 120 mL 01/28/25 mg/5 mL oral solution amoxicillin 600 mg-potassium 7.5 ml PO BID 10 days #15 0 mL 01/28/25 clavulanate 42.9 mg/5 mL oral suspension (Augmentin ES-) nitroglycerin 0.3 mg/hr 0.4 mg topical DAILY #30 ea 01/28/25 transdermal 24 hour patch (Nitro-Dur) prednisolone 15 mg/5 mL oral 30 mg (10 mL) PO QDAY 5 d ays #50 mL 01/28/25 solution Allergies Allergy/AdvReac Type Severity Reaction Status Date / Time No Known Allergies Allergy Verified 01/24/25 17:27 Review of Systems Review of Systems Systems Reviewed: All systems reviewed, normal except as documented Past Medical History Past Medical History CARDIAC: Positive Heart Murmur and Hypertension GASTROINTESTINAL: Positive Obesity GENITOURINARY: Positive Renal Disease and Dialysis REPRODUCTIVE: Positive Previous Pregnancies MUSCULOSKELETAL: Positive Arthritis and Osteomyelitis ENT: Positive Blind ENDOCRINE: Positive Endocrine Disorders and Diabetes Mellitus Type 2 PSYCHO/SOCIAL: Positive Bipolar Disorder, Depression and Anxiety OTHER HISTORY: Positive Hospitalization, Falls, Chicken Pox and Cancer Family History FAMILY HISTORY: Positive Family Cancer Surgical History SURGICAL: Positive Abdominal Surgery, Nephrectomy, Amputation and Section Social History SMOKING STATUS: Never smoker SECOND HAND EXPOSURE: No SUBSTANCE USE: does not use ED Exam Narrative Physical exam: Generally patient is alert obese chronically ill-appearing female, chest shows right upper chest dialysis Vas-Cath to be in place, face shows diffuse swelling without subcutaneous emphysema, oropharynx shows a soft oral floor, heart reg ular rate and rhythm, lungs clear to auscultation equal bilaterally, abdomen soft nontender, neurologic exam shows Sheree Coma Scale of 15 Course Quality Measures none Orders Category Date Time Status CT Screening NOW Care 01/31/25 12:[address] soft tissue neck w con Stat Exams 01/31/25 12:18 Completed CBC Stat Lab 01/31/25 12:47 Completed CMP [Comprehensive Metabolic Panel] Stat Lab 01/31/25 12:47 Completed HCG Qualitative,Urine Stat Lab 01/31/25 16:10 Completed Morphine* Inj Med 01/31/25 14:20 Discontinued 4 mg IVP X1 ONE Vital Signs Vital signs: Vital Signs Temperature 98.3 F 01/31/25 11:59 Pulse Rate 85 01/31/25 11:59 Respiratory Rate 18 01/31/25 11:59 Blood Pressure 192/96 H 01/31/25 11:59 Pulse Oximetry (%) 95 01/31/25 11:59 Oxygen Delivery Method Room Air 01/31/25 11:59 Pulse ox is 95% on room air which is adequate. Dental / Oral MDM Narrative MDM Narrative:: Patient is a dialysis patient. Patient was seen here 3 days ago with a CT scan of the soft tissues of the neck showing bilateral parotiditis. Repeat CT angiogram of the soft tissues of the neck today shows diffuse facial swelling. No abscess was seen. Patient has an indwelling right upper chest Vas-Cath. We will need to assess for superior vena cava clot, superior vena cava syndrome. CT angiogram of the chest was ordered. Also ultrasound to the right upper extremity was ordered. Case was signed out to Dr. Sandhu awaiting results of those test and for further disposition. Patient data External records reviewed:: [facility] previous records and EMS form Clinical information provided by:: patient and EMS Social determinants that could affect healthcare access:: none Patient has the following chronic illnesses:: hypertension, IDDM, kidney cancer s/p nephrectomy How is presenting disease/condition affected by chronic disease/condition?: exacerbated by Evaluation data The following diagnostics were reviewed and interpreted by me:: lab results and radiology exam(s) Lab and/or radiology exams considered but not ordered:: None Interpretation Summary: Ordering Physician: Jean-Claude Wheeler DO Date of Service: 01/31/25 Procedure(s): CT soft tissue neck w con Accession Number(s): [id number] cc: Christian Cooper MD; Lesia Kramer MD; Jean-Claude Wheeler DO~ Examination: CT soft tissue neck, with intravenous contrast. 2-D coronal reconstructions. 2-D sagittal reconstructions. Date and time of exam : January 31, 2025, 1644 hours INDICATIONS: Bilateral neck swelling and pain unable to swallow today. CTDI: vol (mGy): 15.9 DLP: (mGycm): 415 Technique: 1.25 mm axial sections of the neck of the obtained. Coronal and sagittal reconstructions have been obtained. Intravenous contrast administered 50 cc Isovue-370. Low dose protocols were performed. One or more of the following dose reduction techniques were used; automated exposure control, adjustment of the mA and/or KV according to patient size, use of iterative reconstruction technique. Findings: Symmetrical optic globes Significant right maxillary antral sinus disease Mild soft tissue tonsillar hypertrophy No tonsillar abscess The larynx appears normal There is diffuse edema in the subcutaneous fatty tissue of the entire face The thyroid lobes are not enlarged, 8 mm right thyroid nodule Normal epiglottis The prevertebral soft tissue at the C3-C6 level is prominent, sagittal image 49 IMPRESSION: No tonsillar abscess Diffuse edema in the subcutaneous fatty tissue of the entire face, clinical correlation advised Normal epiglottis Significant prevertebral soft tissue prominence, clinical correlation advised If prevertebral soft tissue abscess is a clinical consideration, recommend MRI cervical spine follow-up pre and postcontrast All of the subcutaneous tissue shows diffuse edema in the entire face, clinical correlation advised Dictated By: Christian Cooper MD Signed By: <Electronically signed by Christian Cooper MD in OV> 01/31/25 9276 Medications / Prescriptions Medications or Prescriptions considered but not ordered:: None Medication administrations:: Medication Administration History Discontinued Medications Morphine Sulfate (Morphine Sulf Inj 4 Mg/Ml Vial) 4 mg IVP X1 ONE Stop: 01/31/25 14:21 Last Admin: 01/31/25 15:04 Dose: 4 mg Documented By: VL See above Consultations Consultation(s) initiated? (list below): No Diagnosis Most likely diagnosis given after review of the tests above:: None Admission Indicated Admission indicated?: not indicated Explain why admission is indicated or not indicated:: Patient signed out pending Admission Request Was there a request for admission?: No Disposition Plan Disposition Plan: other (specify) (Signed out to Dr. Sandhu pending final disposition) Discharge Plan Prescriptions/Referrals Prescriptions/Med Rec: No Action gabapentin 600 mg Tablet 1,200 mg PO TID (DME) FreeStyle Zoey 2 [place] Misc See Rx Instructions .Route Qty: 1 2RF Rx Instructions: As directed; once daily insulin glargine 100 unit/mL solution 10 unit subcut QPM Qty: 10 4RF (DME) FreeStyle Zoey 2 Sensor Kit See Rx Instructions .Route Qty: 1 3RF Rx Instructions: As directed once daily hydrocodone-acetaminophen 10-325 mg tablet 1 tab PO Q6H MDD 4 PRN (Reason: pain) Qty: 30 0RF nifedipine 60 mg tablet extended release 24hr PO Patient Comments: TAKE 1 TABLET BY MOUTH EVERY DAY valsartan 160 mg tablet Patient Comments: TAKE 1 TABLET BY MOUTH EVERY DAY Nitro-Dur 0.3 mg/hr patch 24 hour 0.4 mg topical DAILY Qty: 30 0RF Rx Instructions: Apply at 6pm each day and remove at 12 noon the following day and repeat amoxicillin-pot clavulanate [Augmentin ES-600] 600-42.9 mg/5 mL suspension for reconstitution 7.5 ml PO BID 10 Days Qty: 150 0RF prednisolone 15 mg/5 mL solution 30 mg PO QDAY 5 Days Qty: 50 0RF acetaminophen-codeine 120-12 mg/5 mL solution 5 ml PO Q6H PRN (Reason: pain) Qty: 120 0RF hydroxyzine HCl 25 mg tablet 25 mg PO HS PRN (Reason: insom) Qty: 30 0RF (DME) blood pressure monitor [Blood Pressure Kit] Kit See Rx Instructions .Route Qty: 1 0RF Rx Instructions: As directed albuterol sulfate 90 mcg/actuation HFA aerosol inhaler 2 puff inhalation Q6H PRN (Reason: shortness of breath or wheezing) Qty: 8.5 0RF methocarbamol 500 mg tablet 500 mg PO BID PRN (Reason: pain) Qty: 14 0RF Referrals: Lesia Kramer MD [Primary Care Provider] - In 1 week Problem List Clinical Impression: Facial swelling Patient/Caregiver Discharge Instructions Print Language: Bulgarian
[2025-01-31 13:03] LABS: Basophils # (Auto) 0.0 Thou/mm3 (0.0-0.2); Basophils % (Auto) 0 % (0-2.5); Eosinophils # (Auto) 0.0 Thou/mm3 (0.0-0.5); Eosinophils % (Auto) 0 % (0-10); Hematocrit 36.0 % (36.0-46.0); Hemoglobin 11.2 g/dL (12.0-16.0); Immature Granulocytes Auto 0.12 Thou/mm3 (0.00-0.00); Lymphocytes # (Auto) 1.3 Thou/mm3 (1.0-4.8); Lymphocytes % (Auto) 13 % (10-50); Mean Corpuscular HGB Conc 31.1 g/dl (31.0-37.0); Mean Corpuscular Hemoglobin 30.3 pg (25.0-35.0); Mean Corpuscular Volume 97 fL (80-100); Monocytes # (Auto) 0.8 Thou/mm3 (0.0-0.8); Monocytes % (Auto) 7 % (0-12); Neutrophils # (Auto) 8.4 Thou/mm3 (1.8-7.7); Neutrophils % (Auto) 79 % (37-80); Nucleated Red Blood Cell # 0.00 Thou/mm3 (0.00-0.00); Nucleated Red Blood Cell % 0 /100 WBC (0); Platelet Count 262 Thou/mm3 (140-440); RDW Standard Deviation 62.6 fL (36.4-46.3); Red Blood Count 3.70 Miln/mm3 (4.00-5.20); White Blood Count 10.7 Thou/mm3 (3.6-11.0)
[2025-01-31 13:26] LABS: Alanine Aminotransferase 33 U/L (10-49); Albumin, Serum 4.4 gm/dL (3.5-5.0); Albumin/Globulin Ratio 1.1 (1.2-2.2); Alkaline Phosphatase 219 U/L (46-116); Anion Gap 14 (7-16); Aspartate Amino Transferase 19 U/L (0-34); BUN/Creatinine Ratio 9 Ratio (12-20); Bilirubin,Total 0.3 mg/dL (0.3-1.2); Blood Urea Nitrogen 66 mg/dL (9-23); Calcium 8.5 mg/dL (8.3-10.6); Calcium (Corrected) 8.5 mg/dL (8.5-10.1); Carbon Dioxide 25.2 mMol/L (20.0-31.0); Chloride 98 mMol/L (98-107); Creatinine (Component) 7.6 mg/dL (0.6-1.3); Estimated Creatinine Clearance 10.2 mL/min (>60); Globulin 3.9 gm/dL (2.3-3.5); Glucose 278 mg/dL (74-106); Osmolality,Calculated 302 (275-295); Potassium 5.1 mMol/L (3.4-5.1); Sodium 137 mMol/L (136-145); Total Protein 8.3 gm/dL (5.7-8.2); eGFR 6 See Note
[2025-01-31] MEDS: MORPHINE SULF INJ 4 MG/ML VIAL IVP ×2 (15:04→20:33)
[2025-01-31 16:22] LABS: HCG Qualitative,Urine Negative
--- NOTE | 2025-01-31 18:11 | XR_ITS ---
Examination: CTA chest with intravenous contrast 2-D reconstructions 3-D reconstructions, vascular Date and time of exam: January 31, 2025, 2023 hours INDICATIONS: Shortness of breath today, swelling and edema in the neck and face today, clinical diagnosis clot superior vena cava CTDI: vol (mGy) 35.4 DLP: (mGycm) 592 Technique: Multiple axial sections of the thorax have been obtained. 3 mm slice thickness, from below the hemidiaphragms to above the apices of the lungs. Mediastinal and lung density settings have been obtained. 2-D sagittal and coronal reconstructions. 3-D angiographic renderings, 3-D volume renderings, 3D post processing, vascular maximum intensity projections obtained. Contrast administered is 100 cc Isovue-370. Low dose protocols were performed. One or more of the following dose reduction techniques were used; automated exposure control, adjustment of the mA and/or KV according to patient size, use of iterative reconstruction technique. Findings: Diffuse edema in the subcutaneous fatty tissue upper chest No thoracic aortic aneurysmal dilatation or dissection No pulmonary artery emboli There appears to be thrombus in the upper portion of the superior vena cava Moderate vascular congestion Pneumonia left base with mild bilateral pleural effusions No focal liver or splenic lesions Liver irregular in contour No hydronephrosis Spleen not enlarged IMPRESSION: No thoracic aortic aneurysmal dilatation or dissection Negative for pulmonary artery emboli There appears to be thrombus in the proximal superior vena cava
--- NOTE | 2025-01-31 18:11 | XR_ITS ---
Examination: Duplex scan of the upper extremity, unilateral right Date and time of exam: [place]as[place], 2024, 1833 hours INDICATIONS: Right neck and extremity swelling beginning 1 week ago Technique: Duplex scan of the extremity veins using B-mode/grayscale imaging and Doppler spectral analysis and color flow Attention is directed to internal echogenicity, compression and augmentation involving these veins, color flow assessment, spectral analysis Findings: Major deep venous structures in the extremity demonstrate normal course and caliber. There is no evidence of deep vein thrombosis. Normal color flow and spectral analysis Impression: Negative for DVT..
--- NOTE | 2025-01-31 18:17 | EDNOTE_ITS ---
Emergency Room Addendum Addendum Narrative: 1800: Care assumed from Dr. Wheeler, the previous shift emergency physician. Past medical, surgical, social and family history reviewed. Vitals and home medications reviewed. Results and treatment plan discussed. I will assume the care of the patient at this time and will follow the patient. Please refer to the emergency department record for history and examination from initial visit. 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 Patient heparinized and will require transfer to facility with vascular services. Patient remained hypertensive throughout ED course and was treated with Hydralazine. No signs of respiratory insufficiency. Patient will require dialysis given dye load in the next 24 hours. 0057: Discussed case with [facility]. Discussed patients ED course, exam findings, labs, and radiology results. Awaiting on a callback. 0146: Discussed case with [facility]. Discussed patients ED course, exam findings, labs, and radiology results. Declined the patient due to being at capacity. They will try getting acceptance from [facility]. 0419: Discussed case with [facility] [place]. Discussed patients ED course, exam findings, labs, and radiology results. Dr. Orourke, IR, accepts the patient for transfer. Dx: SVC syndrome RADIOLOGY RESULTS: [facility] Signed Patient: ARVIN FUNZE [facility]. Record#: [id number] Birthdate: 1975 Age/Sex: 49 / F Location: [facility] Attending Dr: Ordering Physician: Jean-Claude Wheeler DO Date of Service: 01/31/25 Procedure(s): US venous doppler UE RT Accession Number(s): [id number] cc: Christian Cooper MD; Lesia Kramer MD; Jean-Claude Wheeler DO~ Examination: Duplex scan of the upper extremity, unilateral right Date and time of exam: , 2024, 1833 hours INDICATIONS: Right neck and extremity swelling beginning 1 week ago Technique: Duplex scan of the extremity veins using B-mode/grayscale imaging and Doppler spectral analysis and color flow Attention is directed to internal echogenicity, compression and augmentation involving these veins, color flow assessment, spectral analysis Findings: Major deep venous structures in the extremity demonstrate normal course and caliber. There is no evidence of deep vein thrombosis. Normal color flow and spectral analysis Impression: Negative for DVT.. Dictated By: Christian Cooper MD Signed By: <Electronically signed by Christian Cooper MD in OV> 01/31/252002 [facility] Signed Patient: ARVIN FUNEZ Record#: [id number] Birthdate: 1975 Age/Sex: 49 / F Location: [facility] Attending Dr: Ordering Physician: Jean-Claude Wheeler DO Date of Service: 01/31/25 Procedure(s): CT angio chest Accession Number(s): [id number] cc: Christian Cooper MD; Lesia Kramer MD; Jean-Claude Wheeler DO~ Examination: CTA chest with intravenous contrast 2-D reconstructions 3-D reconstructions, vascular Date and time of exam: January 31, 2025, 2023 hours INDICATIONS: Shortness of breath today, swelling and edema in the neck and face today, clinical diagnosis clot superior vena cava CTDI: vol (mGy) 35.4 DLP: (mGycm) 592 Technique: Multiple axial sections of the thorax have been obtained. 3 mm slice thickness, from below the hemidiaphragms to above the apices of the lungs. Mediastinal and lung density settings have been obtained. 2-D sagittal and coronal reconstructions. 3-D angiographic renderings, 3-D volume renderings, 3D post processing, vascular maximum intensity projections obtained. Contrast administered is 100 cc Isovue-370. Low dose protocols were performed. One or more of the following dose reduction techniques were used; automated exposure control, adjustment of the mA and/or KV according to patient size, use of iterative reconstruction technique. Findings: Diffuse edema in the subcutaneous fatty tissue upper chest No thoracic aortic aneurysmal dilatation or dissection No pulmonary artery emboli There appears to be thrombus in the upper portion of the superior vena cava Moderate vascular congestion Pneumonia left base with mild bilateral pleural effusions No focal liver or splenic lesions Liver irregular in contour No hydronephrosis Spleen not enlarged IMPRESSION: No thoracic aortic aneurysmal dilatation or dissection Negative for pulmonary artery emboli There appears to be thrombus in the proximal superior vena cava Dictated By: Christian Cooper MD Signed By: <Electronically signed by Christian Cooper MD in OV> 01/31/25 6847 Critical Care Time: 40 minutes The high probability of sudden, clinically significant deterioration in the patient?s condition required the highest level of my preparedness to intervene urgently. The services I provided to this patient were to treat and/or prevent clinically significant deterioration. Services included the following: chart data review, reviewing nursing notes and/or old charts, documentation time, domestic travel consultant collaboration regarding findings and treatment options, medication orders and management, direct patient care, vital sign assessments and ordering, interpreting and reviewing diagnostic studies and lab tests. Aggregate critical care time includes only time during which I was engaged in work directly related to the patient?s care, as described above, whether at bedside or elsewhere in the Emergency Department. It did not include time spent performing other reported procedures or the services of residents, students, nurses or physician assistants.
[2025-01-31] MEDS: hydrALAZINE INJ 20 MG/ML VIAL 10 MG IVP (20:33)
[2025-01-31] MEDS: PROCHLORPERAZINE INJ 5 MG/ML VIAL 2 ML IV (20:36)
[2025-01-31 22:44] LABS: INR 1.0 (0.9-1.3); Partial Thromboplastin Time 20.0 Seconds (22.0-36.0); Prothrombin Time 10.2 Seconds (9.0-12.2)
--- NOTE | 2025-01-31 23:48 | PC.NURSE ---
CALL MADE TO PHARMACY, STAFF TOLD THIS NURSE THAT THEY WOULD VERIFY MED WITHT PHARMACIST
[2025-02-01] MEDS: HEPARIN SOD INJ 5000 UNIT/ML VIAL 8000 UNIT IV (00:18)
[2025-02-01] MEDS: Heparin/D5w 25K 250 ML Ivpb 25,000 UNIT/250 ML BAG 17.962 UNIT IV (00:20)
[2025-02-01 00:27] VITALS: BP 145/95; PULSE 75; RESP 19; O2SAT 99
[2025-02-01 02:28] VITALS: BP 142/77; PULSE 72; RESP 18; TEMP 36.6; O2SAT 97
[2025-02-01 04:41] VITALS: BP 133/86; PULSE 77; RESP 18; TEMP 36.7; O2SAT 96
[2025-02-01] MEDS: MORPHINE SULF INJ 4 MG/ML VIAL IVP (06:11)
--- NOTE | 2025-02-01 06:12 | PC.NURSE ---
GAVE REPORT TO CLARISA ESTRADA FROM [facility] PT GIVEN MORPHINE BEFORE LEAVING ED. PT STABLE AND NOT IN DISTRESS
== END 2025-02-01 06:10 | disposition short-term general hospital (02) ==
PROVIDERS: Emergency Medicine; Emergency Provider Emergency Medicine; PCP Family Medicine
DX: I87.1 Compression of vein (principal); I10 Essential (primary) hypertension; Z75.1 Person awaiting admission to adequate facility elsewhere
CPT/HCPCS: 36415; 70491; 71275; 80053; 81025; 85025; 85610; 85730; 93971; 96374; 96375; 96376; 99284; A4649; J0360; J0780; J1644; J2270; Q9967

== ENCOUNTER 2025-02-10 12:48 | Emergency (ER) | payer MEDICAID, SELFPAY ==
--- NOTE | 2025-02-10 12:54 | EKG_ITS ---
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
[2025-02-10 12:56] VITALS: BP 218/115; PULSE 91; PULSE 93; RESP 14; RESP 17; TEMP 37.4; O2SAT 100; O2SAT 99; BMI 35.9
--- NOTE | 2025-02-10 13:11 | PD.EDCHEST ---
ED Chest Pain RME/HPI General Chief Complaint: Chest Pain Stated Complaint: CHEST WALL PAIN Time Seen by Provider: 02/10/25 12:54 Arrival date/time: 02/10/25 12:48 RME / HPI RME / HPI narrative: 49 year old female with history of hypertension, IDDM, kidney cancer s/p nephrectomy, ESRD on HD presents to the ED BIBA from her PCPs clinic for evaluation of elevated blood pressure today. Patient states she was seeing her doctor today for evaluation of bilateral breast pain with increased warmth (L>R) beginning yesterday. Evidently while getting her vital signs checked blood pressure was noted to be 200s systolic and sent here for further evaluation. In addition to the breast pain, patient also complains of nausea and vomiting yesterday. No diarrhea. No abdominal pain. No fevers. States she still produces urine and had not had any urinary symptoms. Patient also mentioned she was diagnosed with SVC thrombus 10 days ago here and transferred to [facility] where the chest dialysis catheter was removed and discharged 1 week ago today. Related Data Home Medications ?Medication ?Instructions ?Recorded ?Confirmed gabapentin 600 mg tablet 1,200 mg PO TID 06/16/20 12/30/23 nifedipine 60 mg tablet,extended mg PO 01/28/25 release 24 hr valsartan 160 mg tablet mg 01/28/25 Previous Rx's ?Medication ?Instructions ?Recorded hydroxyzine HCl 25 mg tablet 25 mg PO HS PRN insom #30 tabs 06/06/23 blood pressure monitor (Blood #1 ea 06/28/23 Pressure Kit) flash glucose scanning reader #1 ea 01/13/24 (FreeStyle Zoey 2 [place]) flash glucose sensor (FreeStyle #1 ea 01/13/24 Zoey 2 Sensor kit) insulin glargine 100 unit/mL 10 unit (0.1 mL) subcut QPM #10 mL 01/13/24 subcutaneous solution albuterol sulfate 90 mcg/actuation 2 puff inhalation Q6H PRN 10/26/24 aerosol inhaler shortness of breath or wheezing #8.5 grams methocarbamol 500 mg tablet 500 mg PO BID PRN pain #14 tabs 11/18/24 hydrocodone 10 mg-acetaminophen 1 tab PO Q6H PRN pain #30 tabs 11/23/24 325 mg tablet acetaminophen 120 mg-codeine 12 5 ml PO Q6H PRN pain #120 mL 01/28/25 mg/5 mL oral solution nitroglycerin 0.3 mg/hr 0.4 mg topical DAILY #30 ea 01/28/25 transdermal 24 hour patch (Nitro-Dur) amoxicillin 875 mg-potassium 1 tab PO BID 7 days #14 tabs 02/10/25 clavulanate 125 mg tablet Allergies Allergy/AdvReac Type Severity Reaction Status Date / Time No Known Allergies Allergy Verified 01/24/25 17:27 Review of Systems Review of Systems Systems Reviewed: All systems reviewed, normal except as documented Past Medical History Past Medical History CARDIAC: Positive Heart Murmur and Hypertension GASTROINTESTINAL: Positive Obesity GENITOURINARY: Positive Renal Disease and Dialysis REPRODUCTIVE: Positive Previous Pregnancies MUSCULOSKELETAL: Positive Arthritis and Osteomyelitis ENT: Positive Blind ENDOCRINE: Positive Endocrine Disorders PSYCHO/SOCIAL: Positive Bipolar Disorder, Depression and Anxiety OTHER HISTORY: Positive Hospitalization, Falls, Chicken Pox and Cancer Family History FAMILY HISTORY: Positive Family Cancer Surgical History SURGICAL: Positive Abdominal Surgery, Nephrectomy, Amputation and Section Social History SMOKING STATUS: Never smoker SECOND HAND EXPOSURE: No SUBSTANCE USE: does not use ED Exam Narrative Physical exam: Constitutional: Awake, alert, chronically ill-appearing, morbidly obese, does not appear in acute distress at this time. HEENT: Normocephalic, atraumatic, extraocular movements intact. Neck: Supple CV: Regular rate and normal rhythm Lungs: Generally clear to auscultation BL, no respiratory distress. Abd: Soft, NT, ND, no HSM noted to palpation Chest wall: Bilateral breasts are erythematou s left greater than right. There is pain to palpation of the left breast with slight induration at the approximately 9 o'clock position. No fluctuance noted. Neuro: AAOx3, no acute neuro deficit noted. GCS 15 Skin: Erythema to bilateral breasts as noted above. Healing wound to upper right anterior chest wall from removal of PermCath previously. Course Course Course Narrative: 1650p: Blood pressure is 180/80s. Breast ultrasound is negative for abscess. Hemoglobin is low at 8.6 compared to previous values, but otherwise, there are no other significant acute abnormalities. We will treat her mastitis with oral antibiotics and she is stable for discharge home. Quality Measures none Orders Category Date Time Status Electro Mechanical Technologist STAT Care 02/10/25 13:15 Active Continuous Pulse Oximetry STAT Care 02/10/25 13:15 Completed EKG (ED ONLY) *Do not use* NOW Care 02/10/25 12:54 Completed EKG (ED ONLY) *Do not use* NOW Care 02/10/25 13:15 Completed Insert IV NOW Care 02/10/25 13:15 Active Strict Intake and Output Routine Care 02/10/25 13:15 Ordered EKG (ED Only) Stat Exams 02/10/25 12:54 Draft EKG (ED Only) Stat Exams 02/10/25 13:15 Ordered US breast BI complete Stat Exams 02/10/25 13:17 Completed Blood Culture (Lab) Stat Lab 02/10/25 15:21 Received CBC Stat Lab 02/10/25 15:17 Completed Comprehensive Metabolic Panel Stat Lab 02/10/25 15:17 Completed Lactate (Lactic Acid) Stat Lab 02/10/25 15:17 Completed Magnesium Stat Lab 02/10/25 15:17 Completed Phosphorous Stat Lab 02/10/25 15:17 Completed Procalcitonin Stat Lab 02/10/25 15:17 Completed Acetaminophen Ivpb [Ofirmev Inj] Med 02/10/25 13:17 Discontinued 1,000 mg in 100 ml IV NOW Amoxicillin/Pot Clav 875 [Augmentin 875] Med 02/10/25 16:57 Discontinued 1 tab PO X1 ONE Ketorolac Inj [Toradol Inj] Med 02/10/25 13:17 Discontinued 15 mg IVP X1 ONE Labetalol* IV [Trandate IV] Med 02/10/25 17:52 Once 10 mg IVP X1 ONE Labetalol* IV [Trandate IV] Med 02/10/25 14:46 Discontinued 20 mg IVP X1 ONE NIFEdipine [Procardia Xl] Med 02/10/25 17:52 Once 60 mg PO X1 ONE Vital Signs Vital signs: Vital Signs Temperature 99.3 F 02/10/25 12:56 Pulse Rate 91 02/10/25 12:56 Respiratory Rate 14 02/10/25 12:56 Blood Pressure 218/115 H 02/10/25 12:56 Pulse Oximetry (%) 100 02/10/25 12:56 Oxygen Delivery Method Room Air 02/10/25 12:56 Pulse ox is 100% on room air which is adequate. Chest Pain MDM Narrative MDM Narrative:: I, Dona Shipman, am scribing for and in the presence of Dr. Hernandez. Patient data External records reviewed:: [facility] previous records and EMS form Clinical information provided by:: patient and EMS Social determinants that could affect healthcare access:: none Patient has the following chronic illnesses:: hypertension, IDDM, kidney cancer s/p nephrectomy, ESRD on HD How is presenting disease/condition affected by chronic disease/condition?: exacerbated by Evaluation data The following diagnostics were reviewed and interpreted by me:: lab results, radiology exam(s) and EKG tracing(s) (EKG @ 12:56h, normal sinus rhythm, rate 90, no STEMI. ) Lab and/or radiology exams considered but not ordered:: None Interpretation Summary: Ordering Physician: Jayashree Hernandez MD Date of Service: 02/10/25 Procedure(s): US breast BI complete Accession Number(s): [id number] cc: Christian Cooper MD; Jayashree Hernandez MD~ Examination: Breast ultrasound complete, bilateral Date and time of exam: February 10, 2025, 1343 hours INDICATIONS: Left breast pain and pressure redness and swelling beginning 2 days ago Technique: Real-time grayscale ultrasonographic imaging bilateral breasts, including all 4 quadrants as well as nipple retroareolar and axillary regions. Findings: Sonographic images right and left breast demonstrate no cystic or solid masses Bilateral breast edema but no abscess depicted IMPRESSION: Bilateral breast edema, but no breast abscess noted Dictated By: Christian Cooper MD Signed By: <Electronically signed by Christian Cooper MD in OV> 02/10/25 1420 Medications / Prescriptions Medications or Prescriptions considered but not ordered:: None Medication administrations:: Medication Administration History Discontinued Medications Amoxicillin/Clavulanate Potassium (Amoxicillin/Pot Clav 875 Tablet) 1 tab PO X1 ONE Stop: 02/10/25 16:58 Last Admin: 02/10/25 17:32 Dose: 1 tab Documented By: GM Acetaminophen (Ofirmev Inj) 1,000 mg in 100 mls @ 250 mls/hr IV NOW ONE Stop: 02/10/25 13:40 Last Infusion: 02/10/25 15:25 Dose: Infused Documented By: Admin: 02/10/25 15:00 Dose: 250 mls/hr Documented By: GM Ketorolac Tromethamine (Ketorolac Inj 30 Mg/Ml Vial) 15 mg IVP X1 ONE Stop: 02/10/25 13:18 Last Admin: 02/10/25 14:54 Dose: 15 mg Documented By: GM Labetalol HCl (Labetalol Inj 5 Mg/Ml Vial 4 Ml) 20 mg IVP X1 ONE Stop: 02/10/25 14:47 Last Admin: 02/10/25 14:57 Dose: 20 mg Documented By: GM Comments: PT'S BP 211/110 See above Consultations Consultation(s) initiated? (list below): No Diagnosis Most likely diagnosis given after review of the tests above:: Mastitis, uncontrolled hypertension Admission Indicated Admission indicated?: not indicated Admission Request Was there a request for admission?: No Disposition Plan Disposition Plan: Discharge Discharge Attestation Discharge Attestation: The patient and all family members were given an opportunity to ask questions and understood the discharge instructions. Discharge instructions specifically effects, indications for sooner follow up or return to the emergency department, and the expected course of current diagnosis. Patient condition: Stable Discharge Plan Plan Patient Disposition: HOME (Self Care) Patient condition on transfer: Stable Prescriptions/Referrals Prescriptions/Med Rec: New amoxicillin-pot clavulanate 875-125 mg tablet 1 tab PO BID 7 Days Qty: 14 0RF No Action gabapentin 600 mg Tablet 1,200 mg PO TID (DME) FreeStyle Zoey 2 [place] Misc See Rx Instructions .Route Qty: 1 2RF Rx Instructions: As directed; once daily insulin glargine 100 unit/mL solution 10 unit subcut QPM Qty: 10 4RF (DME) FreeStyle Zoey 2 Sensor Kit See Rx Instructions .Route Qty: 1 3RF Rx Instructions: As directed once daily hydrocodone-acetaminophen 10-325 mg tablet 1 tab PO Q6H MDD 4 PRN (Reason: pain) Qty: 30 0RF nifedipine 60 mg tablet extended release 24hr PO Patient Comments: TAKE 1 TABLET BY MOUTH EVERY DAY valsartan 160 mg tablet Patient Comments: TAKE 1 TABLET BY MOUTH EVERY DAY Nitro-Dur 0.3 mg/hr patch 24 hour 0.4 mg topical DAILY Qty: 30 0RF Rx Instructions: Apply at 6pm each day and remove at 12 noon the following day and repeat acetaminophen-codeine 120-12 mg/5 mL solution 5 ml PO Q6H PRN (Reason: pain) Qty: 120 0RF hydroxyzine HCl 25 mg tablet 25 mg PO HS PRN (Reason: insom) Qty: 30 0RF (DME) blood pressure monitor [Blood Pressure Kit] Kit See Rx Instructions .Route Qty: 1 0RF Rx Instructions: As directed albuterol sulfate 90 mcg/actuation HFA aerosol inhaler 2 puff inhalation Q6H PRN (Reason: shortness of breath or wheezing) Qty: 8.5 0RF methocarbamol 500 mg tablet 500 mg PO BID PRN (Reason: pain) Qty: 14 0RF Referrals: Lesia Kramer MD [Primary Care Provider] - In 1 week Problem List Clinical Impression: Mastitis, Hypertension, uncontrolled Patient/Caregiver Discharge Instructions Education Materials: ED High Blood Pressure ..., ED Mastitis Additional Instructions: Some general health principles that can help you are the NEW START principles: Nutrition (eat a plant-based diet, avoiding meats in general, avoiding highly processed foods) Exercise (Daily exercise/walks as tolerated) Water (Drink adequate fresh water to maintain hydration, concentrating on water rather than on soda, coffee, tea, juice, etc for hydration) [place] (Spend time - 15-20 minutes or so with skin exposed in the psychiatric registered nurse and late evening sun for Vitamin D health benefits) [place] (Avoid alcohol, illicit drugs, caffeinated beverages, smoking, etc) Air (Deep breathing exercises in the early mornings in fresh air) Rest (Adequate rest at night, going to bed a few hours before midnight and avoiding all screens/television/loud music in the time right before going to bed, also avoiding heavy meals just prior to going to bed) Trust in God (Spend time daily in Bible study and prayer - health benefits in contemplation of God's true character) Additional resources that can benefit: [email or web address], look under resources and seminars. Another good website is [email or web address] Print Language: [place] Stand Alone Forms: Monik Award Info., Patient Portal Info Letter
--- NOTE | 2025-02-10 13:17 | XR_ITS ---
Examination: Breast ultrasound complete, bilateral Date and time of exam: February 10, 2025, 1343 hours INDICATIONS: Left breast pain and pressure redness and swelling beginning 2 days ago Technique: Real-time grayscale ultrasonographic imaging bilateral breasts, including all 4 quadrants as well as nipple retroareolar and axillary regions. Findings: Sonographic images right and left breast demonstrate no cystic or solid masses Bilateral breast edema but no abscess depicted IMPRESSION: Bilateral breast edema, but no breast abscess noted
--- NOTE | 2025-02-10 13:55 | PD.EDSKIN ---
ED Skin Abcess FB-RME/HPI General Chief complaint: Chest Pain Stated complaint: CHEST WALL PAIN Time Seen by Provider: 02/10/25 12:54 Arrival date/time: 02/10/25 12:48 RME / HPI RME / HPI narrative: 49 year old female with history of hypertension, IDDM, kidney cancer s/p nephrectomy, ESRD on HD presents to the ED BIBA from her PCPs clinic for evaluation of elevated blood pressure today. Patient states she was seeing her doctor today for evaluation of bilateral breast pain with increased warmth (L>R) beginning yesterday. Evidently while getting her vital signs checked blood pressure was noted to be 200s systolic and sent here for further evaluation. In addition to the breast pain, patient also complains of nausea and vomiting yesterday. No diarrhea. No abdominal pain. No fevers. States she still produces urine and had not had any urinary symptoms. Patient also mentioned she was diagnosed with SVC thrombus Related Data Home Medications ?Medication ?Instructions ?Recorded ?Confirmed gabapentin 600 mg tablet 1,200 mg PO TID 06/16/20 12/30/23 nifedipine 60 mg tablet,extended mg PO 01/28/25 release 24 hr valsartan 160 mg tablet mg 01/28/25 Previous Rx's ?Medication ?Instructions ?Recorded hydroxyzine HCl 25 mg tablet 25 mg PO HS PRN insom #30 tabs 06/06/23 blood pressure monitor (Blood #1 ea 06/28/23 Pressure Kit) flash glucose scanning reader #1 ea 01/13/24 (FreeStyle Zoey 2 [place]) flash glucose sensor (FreeStyle #1 ea 01/13/24 Zoey 2 Sensor kit) insulin glargine 100 unit/mL 10 unit (0.1 mL) subcut QPM #10 mL 01/13/24 subcutaneous solution albuterol sulfate 90 mcg/actuation 2 puff inhalation Q6H PRN 10/26/24 aerosol inhaler shortness of breath or wheezing #8.5 grams methocarbamol 500 mg tablet 500 mg PO BID PRN pain #14 tabs 11/18/24 hydrocodone 10 mg-acetaminophen 1 tab PO Q6H PRN pain #30 tabs 11/23/24 325 mg tablet acetaminophen 120 mg-codeine 12 5 ml PO Q6H PRN pain #120 mL 01/28/25 mg/5 mL oral solution nitroglycerin 0.3 mg/hr 0.4 mg topical DAILY #30 ea 01/28/25 transdermal 24 hour patch (Nitro-Dur) Allergies Allergy/AdvReac Type Severity Reaction Status Date / Time No Known Allergies Allergy Verified 01/24/25 17:27 Review of Systems Review of Systems Systems Reviewed: All systems reviewed, normal except as documented Past Medical History Past Medical History CARDIAC: Positive Heart Murmur and Hypertension GASTROINTESTINAL: Positive Obesity GENITOURINARY: Positive Renal Disease and Dialysis REPRODUCTIVE: Positive Previous Pregnancies MUSCULOSKELETAL: Positive Arthritis and Osteomyelitis ENT: Positive Blind ENDOCRINE: Positive Endocrine Disorders and Diabetes Mellitus Type 2 PSYCHO/SOCIAL: Positive Bipolar Disorder, Depression and Anxiety OTHER HISTORY: Positive Hospitalization, Falls, Chicken Pox and Cancer; Negative Developmental Delay Family History FAMILY HISTORY: Positive Family Cancer Surgical History SURGICAL: Positive Abdominal Surgery, Nephrectomy, Amputation and Section Social History SMOKING STATUS: Never smoker SECOND HAND EXPOSURE: No SUBSTANCE USE: does not use Course Quality Measures none Orders Category Date Time Status Maintenance Mechanic Elevators STAT Care 02/10/25 13:15 Active Continuous Pulse Oximetry STAT Care 02/10/25 13:15 Active EKG (ED ONLY) *Do not use* NOW Care 02/10/25 12:54 Completed EKG (ED ONLY) *Do not use* NOW Care 02/10/25 13:15 Active Insert IV NOW Care 02/10/25 13:15 Active Strict Intake and Output Routine Care 02/10/25 13:15 Ordered EKG (ED Only) Stat Exams 02/10/25 12:54 Draft EKG (ED Only) Stat Exams 02/10/25 13:15 Ordered US breast BI complete Stat Exams 02/10/25 13:17 Ordered Blood Culture (Lab) Stat Lab 02/10/25 13:15 Ordered CBC Stat Lab 02/10/25 13:15 Ordered Comprehensive Metabolic Panel Stat Lab 02/10/25 13:15 Ordered Lactate (Lactic Acid) Stat Lab 02/10/25 13:15 Ordered Magnesium Stat Lab 02/10/25 13:15 Ordered Phosphorous Stat Lab 02/10/25 13:15 Ordered Procalcitonin Stat Lab 02/10/25 13:15 Ordered Acetaminophen Ivpb [Ofirmev Inj] Med 02/10/25 13:17 Discontinued 1,000 mg in 100 ml IV NOW Ketorolac Inj [Toradol Inj] Med 02/10/25 13:17 Discontinued 15 mg IVP X1 ONE Vital Signs Vital signs: Vital Signs Temperature 99.3 F 02/10/25 12:56 Pulse Rate 91 02/10/25 12:56 Respiratory Rate 14 02/10/25 12:56 Blood Pressure 218/115 H 02/10/25 12:56 Pulse Oximetry (%) 100 02/10/25 12:56 Oxygen Delivery Method Room Air 02/10/25 12:56 Pulse ox is 100% on room air which is adequate. Skin / Abscess / Foreign Body MDM Narrative MDM Narrative:: Dona Rice am scribing for and in the presence of Dr. Hernandez. Patient data External records reviewed:: [facility] previous records and EMS form Clinical information provided by:: patient and EMS Social determinants that could affect healthcare access:: none Patient has the following chronic illnesses:: hypertension, IDDM, kidney cancer s/p nephrectomy, ESRD on HD How is presenting disease/condition affected by chronic disease/condition?: exacerbated by Evaluation data The following diagnostics were reviewed and interpreted by me:: lab results and EKG tracing(s) Lab and/or radiology exams considered but not ordered:: None Medications / Prescriptions Medications or Prescriptions considered but not ordered:: None Medication administrations:: Medication Administration History Discontinued Medications Acetaminophen (Ofirmev Inj) 1,000 mg in 100 mls @ 250 mls/hr IV NOW ONE Stop: 02/10/25 13:40 Ketorolac Tromethamine (Ketorolac Inj 30 Mg/Ml Vial) 15 mg IVP X1 ONE Stop: 02/10/25 13:18 See above Diagnosis Skin/Abscess Differential Diagnosis: allergic reaction to drug, cellulitis and contact dermatitis Discharge Plan Prescriptions/Referrals Prescriptions/Med Rec: No Action gabapentin 600 mg Tablet 1,200 mg PO TID (DME) FreeStyle Zoey 2 [place] Misc See Rx Instructions .Route Qty: 1 2RF Rx Instructions: As directed; once daily insulin glargine 100 unit/mL solution 10 unit subcut QPM Qty: 10 4RF (DME) FreeStyle Zoey 2 Sensor Kit See Rx Instructions .Route Qty: 1 3RF Rx Instructions: As directed once daily hydrocodone-acetaminophen 10-325 mg tablet 1 tab PO Q6H MDD 4 PRN (Reason: pain) Qty: 30 0RF nifedipine 60 mg tablet extended release 24hr PO Patient Comments: TAKE 1 TABLET BY MOUTH EVERY DAY valsartan 160 mg tablet Patient Comments: TAKE 1 TABLET BY MOUTH EVERY DAY Nitro-Dur 0.3 mg/hr patch 24 hour 0.4 mg topical DAILY Qty: 30 0RF Rx Instructions: Apply at 6pm each day and remove at 12 noon the following day and repeat acetaminophen-codeine 120-12 mg/5 mL solution 5 ml PO Q6H PRN (Reason: pain) Qty: 120 0RF hydroxyzine HCl 25 mg tablet 25 mg PO HS PRN (Reason: insom) Qty: 30 0RF (DME) blood pressure monitor [Blood Pressure Kit] Kit See Rx Instructions .Route Qty: 1 0RF Rx Instructions: As directed albuterol sulfate 90 mcg/actuation HFA aerosol inhaler 2 puff inhalation Q6H PRN (Reason: shortness of breath or wheezing) Qty: 8.5 0RF methocarbamol 500 mg tablet 500 mg PO BID PRN (Reason: pain) Qty: 14 0RF Patient/Caregiver Discharge Instructions Print Language: Yoruba
[2025-02-10] MEDS: KETOROLAC INJ 30 MG/ML VIAL 15 MG IVP (14:54)
[2025-02-10] MEDS: ACETAMINOPHEN IVPB 1,000 MG/100 ML VIAL 250 MG IV (15:00)
[2025-02-10 15:04] VITALS: BP 211/110; PULSE 77; RESP 16; TEMP 37.2; O2SAT 96
[2025-02-10 15:29] LABS: Lactate (Lactic Acid) 1.0 mMol/L (0.4-2.0)
[2025-02-10 15:32] LABS: Basophils # (Auto) 0.1 Thou/mm3 (0.0-0.2); Basophils % (Auto) 1 % (0-2.5); Eosinophils # (Auto) 0.2 Thou/mm3 (0.0-0.5); Eosinophils % (Auto) 2 % (0-10); Hematocrit 27.5 % (36.0-46.0); Immature Granulocytes Auto 0.13 Thou/mm3 (0.00-0.00); Lymphocytes # (Auto) 2.2 Thou/mm3 (1.0-4.8); Lymphocytes % (Auto) 24 % (10-50); Mean Corpuscular HGB Conc 31.3 g/dl (31.0-37.0); Mean Corpuscular Hemoglobin 31.0 pg (25.0-35.0); Mean Corpuscular Volume 99 fL (80-100); Monocytes # (Auto) 1.2 Thou/mm3 (0.0-0.8); Monocytes % (Auto) 13 % (0-12); Neutrophils # (Auto) 5.4 Thou/mm3 (1.8-7.7); Neutrophils % (Auto) 59 % (37-80); Nucleated Red Blood Cell # 0.00 Thou/mm3 (0.00-0.00); Nucleated Red Blood Cell % 0 /100 WBC (0); Platelet Count 292 Thou/mm3 (140-440); RDW Standard Deviation 64.2 fL (36.4-46.3); Red Blood Count 2.77 Miln/mm3 (4.00-5.20); White Blood Count 9.2 Thou/mm3 (3.6-11.0)
[2025-02-10 15:48] LABS: Hemoglobin 8.6 g/dL (12.0-16.0)
[2025-02-10 16:02] LABS: Alanine Aminotransferase 11 U/L (10-49); Albumin, Serum 3.6 gm/dL (3.5-5.0); Albumin/Globulin Ratio 1.2 (1.2-2.2); Alkaline Phosphatase 109 U/L (46-116); Anion Gap 10 (7-16); Aspartate Amino Transferase 13 U/L (0-34); BUN/Creatinine Ratio 4 Ratio (12-20); Bilirubin,Total 0.2 mg/dL (0.3-1.2); Blood Urea Nitrogen 26 mg/dL (9-23); Calcium 8.0 mg/dL (8.3-10.6); Calcium (Corrected) 8.3 mg/dL (8.5-10.1); Carbon Dioxide 26.1 mMol/L (20.0-31.0); Chloride 96 mMol/L (98-107); Creatinine (Component) 5.8 mg/dL (0.6-1.3); Estimated Creatinine Clearance 13.3 mL/min (>60); Globulin 3.0 gm/dL (2.3-3.5); Glucose 72 mg/dL (74-106); Magnesium 1.8 mg/dL (1.6-2.6); Osmolality,Calculated 268 (275-295); Phosphorous 3.7 mg/dL (2.4-5.1); Potassium 4.1 mMol/L (3.4-5.1); Procalcitonin 0.14 ng/ml (0.0-0.49); Sodium 132 mMol/L (136-145); Total Protein 6.6 gm/dL (5.7-8.2); eGFR 8 See Note
[2025-02-10] MEDS: AMOXICILLIN/POT CLAV 875 TABLET 1 TAB PO (17:32)
--- NOTE | 2025-02-10 18:16 | PC.NURSE ---
PT GIVEN 2 APPLE JUICE BOXES AND TURKEY SANDWICH; FSBS 63. DR. HUSAIN MADE AWARE. RN TO RECEHECK PT'S FSBS IN 30 MINS. NO NEW ORDERS AT THIS TIME.
[2025-02-10 18:25] VITALS: BP 188/75; PULSE 78; RESP 17; TEMP 37.2; O2SAT 98
[2025-02-10 18:27] VITALS: BP 188/75; PULSE 78
[2025-02-10] MEDS: NIFEdipine XL 30 MG TABCR 60 MG PO (18:27)
[2025-02-10 19:12] VITALS: BP 160/66; PULSE 80; RESP 16; TEMP 37.2; O2SAT 97
--- NOTE | 2025-02-10 19:14 | PC.NURSE ---
SPOKE TO PT'S BROTHER, MR. LAURA BARNES, OVER THE PHONE AND MADE AWARE PT NEEDING A RIDE BACK HOME. PER MR. BARNES, WE WILL PICK HER UP IN A BIT. THE RIDE SHOULD COME IN AROUND 8PM.
== END 2025-02-10 19:30 | disposition home or self-care (01) ==
PROVIDERS: Emergency Provider Family Medicine; PCP Family Medicine
DX: I12.0 Hypertensive chronic kidney disease with stage 5 chronic kidney disease or end stage renal disease (principal); N61.0 Mastitis without abscess; E11.22 Type 2 diabetes mellitus with diabetic chronic kidney disease; N18.6 End stage renal disease; Z79.4 Long term (current) use of insulin; Z99.2 Dependence on renal dialysis
CPT/HCPCS: 36415; 76641; 80053; 83605; 83735; 84100; 84145; 85025; 87040; 93005; 96365; 96375; 96376; 99285; J0131; J1885; J1920; A9270

== ENCOUNTER 2025-02-22 10:37 | Emergency (ER) | payer MEDICAID, SELFPAY ==
--- NOTE | 2025-02-22 10:45 | XR_ITS ---
Study: Chest radiograph. INDICATION: Lower chest pain, left, 2 days. TECHNIQUE: AP portable upright chest radiograph at 1339 hours 22 February 2025. FINDINGS: There is total silhouetting of the left lung base by effusion, infiltrate or a combination. The balance of the left lung and entire right lung are fully expanded and free from alveolar infiltrates. There is no right effusion. The heart is normal in size. Superior mediastinal structures are narrow and peripheral vessels are normal in volume. IMPRESSION: 1. Resolved fluid overload last seen on 28 January 2025. 2. Left effusion, left base infiltrate alone or in combination.
--- NOTE | 2025-02-22 10:45 | EKG_ITS ---
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
[2025-02-22 10:47] VITALS: PULSE 80; RESP 16; O2SAT 96
[2025-02-22 10:51] VITALS: BP 220/112; PULSE 85; RESP 16; TEMP 37.1; O2SAT 100
[2025-02-22 10:53] VITALS: PULSE 84; RESP 100; RESP 18
[2025-02-22 10:54] VITALS: BMI 34.6
--- NOTE | 2025-02-22 11:02 | XR_ITS ---
Study: Abdomen pelvis CT. INDICATION: Abdominal pain and right mid quadrant mass. TECHNIQUE: 3 mm slice thickness with oral contrast alone. 3 mm sagittal and coronal reformats. 2 mm axial reformats. Radiation dose 888 mGy centimeters with dose reduction technique. 1976 images at 1538 hours 22 February 2025. Comparison: Abdomen pelvis CT of 13 August 2024. FINDINGS: The patient was imaged from the aortic valve to the subtrochanteric regions. The heart is normal in size and contour. There is no coronary artery plaque or pericardial effusion. A moderately large left and trace right pleural effusion are noted. The medial basal segment of the left lower lobe is consolidated. A subtle peripheral infiltrate is also noted in the lateral basal segment of the right lower lobe. There is been a cholecystectomy. The kidneys, ureters and urinary bladder are free from calculi. There is no hydronephrosis, ascites or free abdominal air. The partial right nephrectomy site is again noted and unchanged from the study of 13 August 2024. Parenchyma of the liver, pancreas, spleen, kidneys, right adrenal gland and periaortic lymph nodes region is normal. A left adrenal cyst of density 18 Hounsfield units and 3.1 cm diameter is essentially unchanged from the previous study. The stomach, duodenum, small bowel, appendix and colon to the upper half of the descending segment are normal. Thereafter, intact diverticuli are seen and small numbers. An umbilical hernia neck measures 12.3 cm in transmits a small amount of noninflamed adipose. 3.3 cm diameter defect in the right lateral abdominal wall musculature well seen in image 122 of sequence 201 transmits a larger amount of uninflamed adipose and no bowel segments. The urinary bladder is nearly empty and the urothelium cannot be circuit court judge for thickness or masses. The uterus is anteverted and creates mass effect upon the roof of the bladder. Spinal alignment is normal. There is no fracture or focal bone lesion. The L2-3 disc is narrowed and pneumatized. There is a spur protruding into the spinal canal from the posterior inferior margin of L3. Several of the lumbar discs are also narrowed. Enthesophytes are seen at T12 and L1. The abdominal aorta and inferior vena cava are normal in caliber. No significant aortic plaque burden is noted. IMPRESSION: 1. Umbilical and right abdominal wall herniations essentially unchanged from July 2024. 2. Right partial nephrectomy unchanged. 3. Left effusion and partial left lower lobe consolidation with possible associated atelectasis. 4. Possible early infiltrate in the right lower lobe.
[2025-02-22 11:25] LABS: Basophils # (Auto) 0.1 Thou/mm3 (0.0-0.2); Basophils % (Auto) 1 % (0-2.5); Eosinophils # (Auto) 0.3 Thou/mm3 (0.0-0.5); Eosinophils % (Auto) 3 % (0-10); Hematocrit 35.3 % (36.0-46.0); Hemoglobin 10.7 g/dL (12.0-16.0); Immature Granulocytes Auto 0.05 Thou/mm3 (0.00-0.00); Lymphocytes # (Auto) 1.4 Thou/mm3 (1.0-4.8); Lymphocytes % (Auto) 17 % (10-50); Mean Corpuscular HGB Conc 30.3 g/dl (31.0-37.0); Mean Corpuscular Hemoglobin 29.6 pg (25.0-35.0); Mean Corpuscular Volume 98 fL (80-100); Monocytes # (Auto) 0.8 Thou/mm3 (0.0-0.8); Monocytes % (Auto) 10 % (0-12); Neutrophils # (Auto) 5.7 Thou/mm3 (1.8-7.7); Neutrophils % (Auto) 69 % (37-80); Nucleated Red Blood Cell # 0.00 Thou/mm3 (0.00-0.00); Nucleated Red Blood Cell % 0 /100 WBC (0); Platelet Count 291 Thou/mm3 (140-440); RDW Standard Deviation 61.5 fL (36.4-46.3); Red Blood Count 3.62 Miln/mm3 (4.00-5.20); White Blood Count 8.2 Thou/mm3 (3.6-11.0)
--- NOTE | 2025-02-22 11:45 | PC.NURSE ---
MOTHER AT NURSES STATION STATING THAT SHE NEEDS TO BE REMOVED FROM THE PATIENT ROOM DUE TO HER FEELING A FEAR FOR HER LIFE. PATIENT STANDING IN ROOM WITH TABLET IN HIS HAND YELLING AND BANGING ON GLASS. MOTHER STATES SHE CAN NOT TAKE CARE OF PATIENT DUE TO FEARING FOR HER LIFE NURSE ASKED PATIENT IF SHE IS REFUSING TO TAKE PATIENT HOME AT THIS TIME, PIPE ORGAN BUILDER MADE AWARE. DR. ETIENNE MADE AWARE AND DOES NOT FEEL THIS IS A SAFE DISCHARGE. PIPE ORGAN BUILDER IN ED TO DISCUSS OPTIONS INCLUDING CONTACTING CPS. ONE ON ONE PLACED BACK ON PATIENT.
[2025-02-22 11:52] LABS: Alanine Aminotransferase 8 U/L (10-49); Albumin, Serum 3.8 gm/dL (3.5-5.0); Albumin/Globulin Ratio 1.0 (1.2-2.2); Alkaline Phosphatase 104 U/L (46-116); Anion Gap 10 (7-16); Aspartate Amino Transferase 17 U/L (0-34); BUN/Creatinine Ratio 3 Ratio (12-20); Bilirubin,Total 0.3 mg/dL (0.3-1.2); Blood Urea Nitrogen 21 mg/dL (9-23); Calcium 8.8 mg/dL (8.3-10.6); Calcium (Corrected) 9.0 mg/dL (8.5-10.1); Carbon Dioxide 30.5 mMol/L (20.0-31.0); Chloride 103 mMol/L (98-107); Creatinine (Component) 6.1 mg/dL (0.6-1.3); Estimated Creatinine Clearance 12.4 mL/min (>60); Globulin 3.7 gm/dL (2.3-3.5); Glucose 57 mg/dL (74-106); Osmolality,Calculated 285 (275-295); Potassium 3.9 mMol/L (3.4-5.1); Sodium 143 mMol/L (136-145); Total Protein 7.5 gm/dL (5.7-8.2); Troponin I < 0.020 ng/mL (0.0-0.045); eGFR 8 See Note
[2025-02-22] MEDS: SODIUM CHLORIDE 0.9% 1000 ML 1,000 ML 250 ML IV (12:34)
[2025-02-22 12:58] VITALS: BP 198/102; PULSE 88; RESP 16; O2SAT 100
[2025-02-22 13:11] LABS: HCG Qualitative,Urine Negative
[2025-02-22] MEDS: ONDANSETRON INJ 2 MG/ML INJ 2 ML 4 MG IVP (13:13)
[2025-02-22] MEDS: MORPHINE SULF INJ 4 MG/ML VIAL IVP (13:14)
[2025-02-22 13:31] LABS: INR 1.0 (0.9-1.3); Partial Thromboplastin Time 29.1 Seconds (22.0-36.0); Prothrombin Time 10.3 Seconds (9.0-12.2)
--- NOTE | 2025-02-22 14:10 | PD.EDABDPN ---
ED Abdominal Pain RME/HPI General Chief Complaint: Abdominal Pain Stated complaint: ABD PAIN Time seen by provider: 02/22/25 10:45 Arrival date/time: 02/22/25 10:37 Limitations: no limitations RME / HPI RME / HPI narrative: 49 year old female with history of hypertension, IDDM, kidney cancer s/p nephrectomy, ESRD on HD M/W/F presents to the ED BIBA from home for evaluation of abdominal pain beginning early this morning. Pain is described as aching in sensation that is located most to the right upper right mid abdomen, rating as moderate. Accompanied by a bump to the right side of abdomen she noticed last night and multiple episodes of nonbloody diarrhea. Patient mentioned last night for dinner she had a chicken sandwich and fries. Not sure if the food caused her symptoms. No other associated symptoms reported. Denies fevers, chills, sweats, chest pain, cough, shortness of breath, or urinary symptoms. Related Data Home Medications ?Medication ?Instructions ?Recorded ?Confirmed gabapentin 600 mg tablet 1,200 mg PO TID 06/16/20 12/30/23 nifedipine 60 mg tablet,extended mg PO 01/28/25 release 24 hr valsartan 160 mg tablet mg 01/28/25 Previous Rx's ?Medication ?Instructions ?Recorded hydroxyzine HCl 25 mg tablet 25 mg PO HS PRN insom #30 tabs 06/06/23 blood pressure monitor (Blood #1 ea 06/28/23 Pressure Kit) flash glucose scanning reader #1 ea 01/13/24 (FreeStyle Zoey 2 Bivins) flash glucose sensor (FreeStyle #1 ea 01/13/24 Zoey 2 Sensor kit) insulin glargine 100 unit/mL 10 unit (0.1 mL) subcut QPM #10 mL 01/13/24 subcutaneous solution albuterol sulfate 90 mcg/actuation 2 puff inhalation Q6H PRN 10/26/24 aerosol inhaler shortness of breath or wheezing #8.5 grams methocarbamol 500 mg tablet 500 mg PO BID PRN pain #14 tabs 11/18/24 hydrocodone 10 mg-acetaminophen 1 tab PO Q6H PRN pain #30 tabs 11/23/24 325 mg tablet acetaminophen 120 mg-codeine 12 5 ml PO Q6H PRN pain #120 mL 01/28/25 mg/5 mL oral solution nitroglycerin 0.3 mg/hr 0.4 mg topical DAILY #30 ea 01/28/25 transdermal 24 hour patch (Nitro-Dur) Allergies Allergy/AdvReac Type Severity Reaction Status Date / Time No Known Allergies Allergy Verified 02/22/25 10:46 Review of Systems Review of Systems Systems Reviewed: All systems reviewed, normal except as documented Past Medical History Past Medical History CARDIAC: Positive Heart Murmur and Hypertension RESPIRATORY: Positive Asthma GASTROINTESTINAL: Positive Obesity GENITOURINARY: Positive Renal Disease and Dialysis REPRODUCTIVE: Positive Previous Pregnancies MUSCULOSKELETAL: Positive Arthritis and Osteomyelitis ENT: Positive Blind ENDOCRINE: Positive Endocrine Disorders, Diabetes Mellitus Type 1 and Diabetes Mellitus Type 2 PSYCHO/SOCIAL: Positive Bipolar Disorder, Depression and Anxiety OTHER HISTORY: Positive Hospitalization, Falls, Chicken Pox and Cancer Family History FAMILY HISTORY: Positive Family Cancer Surgical History SURGICAL: Positive Abdominal Surgery, Nephrectomy, Amputation and Section Social History SMOKING STATUS: Never smoker SECOND HAND EXPOSURE: No SUBSTANCE USE: does not use ED Exam General Limitations: Present no limitations General appearance: Present alert and other (Pale, blind) Head Head exam: Present atraumatic Eye Eye exam: Present normal appearance, PERRL and EOMI ENT ENT exam: Present normal exam, normal oropharynx and mucous membranes moist Neck Neck exam: Present normal inspection, full ROM and trachea midline Chest Chest inspection: Present normal inspection and symmetric chest wall rise Respiratory Respiratory exam: Present normal lung sounds bilaterally Cardiovascular Cardiovascular exam: Present regular rate, normal rhythm and normal heart sounds Abdominal Exam Abdominal exam: Present soft and other (There is an area that measures 5cm x 5cm oval shaped and enlarged which could be bowel with stool, slight tenderness to palpation. ) Extremities Exam Extremities exam: Present normal inspection and full ROM Back Exam Back exam: Present normal inspection and full ROM Neurological Exam Neurological exam: Present alert, oriented X3 and CN II-XII intact Psychiatric Psychiatric exam: Present normal affect and normal mood Skin Skin exam: Present warm, dry, intact, pallor and other (There is mild breast cellulitis on the left breast) Course Quality Measures none Orders Category Date Time Status CT Screening NOW Care 02/22/25 10:46 Completed Software Sales Consultant NOW Care 02/22/25 10:45 Active Continuous Pulse Oximetry NOW Care 02/22/25 10:45 Completed EKG (ED ONLY) *Do not use* NOW Care 02/22/25 10:45 Completed Insert IV NOW Care 02/22/25 10:[address] abdomen pelvis wo con Stat Exams 02/22/25 11:02 Completed EKG (ED Only) Stat Exams 02/22/25 10:45 Draft XR chest 1V portable Stat Exams 02/22/25 10:45 Completed CBC Stat Lab 02/22/25 11:08 Completed Comprehensive Metabolic Panel Stat Lab 02/22/25 11:08 Completed HCG Qualitative,Urine Stat Lab 02/22/25 12:45 Completed Partial Thromboplastin Time Stat Lab 02/22/25 11:08 Completed Prothrombin Time with INR Stat Lab 02/22/25 11:08 Completed Troponin I Stat Lab 02/22/25 11:08 Completed Morphine* Inj Med 02/22/25 12:58 Discontinued 4 mg IVP X1 ONE Ondansetron Inj [Zofran Inj] Med 02/22/25 12:58 Discontinued 4 mg IVP X1 ONE Sodium Chloride 0.9% 1000 ml [Ns] 1,000 ml Med 02/22/25 10:45 Discontinued IV 250 mls/hr Oxygen Delivery NOW RT 02/22/25 10:45 Active Vital Signs Vital signs: Vital Signs Temperature 98.7 F 02/22/25 10:51 Pulse Rate 85 02/22/25 10:51 Respiratory Rate 16 02/22/25 10:51 Blood Pressure 220/112 H 02/22/25 10:51 Pulse Oximetry (%) 100 02/22/25 10:51 Oxygen Delivery Method Room Air 02/22/25 10:51 Pulse ox is 100% on room air which is adequate. Abdominal Pain MDM MDM Narrative MDM Narrative:: Dona Rice am scribing for and in the presence of Dr. Rocha. We reviewed all the results, analysis, and treatment plans. Patient is amenable to discharge. Strict return precautions were outlined. Patient data External records reviewed:: [facility] [place] previous records and EMS form Clinical information provided by:: patient and EMS Social determinants that could affect healthcare access:: none Patient has the following chronic illnesses:: hypertension, IDDM, kidney cancer s/p nephrectomy, ESRD on HD M/W/F How is presenting disease/condition affected by chronic disease/condition?: exacerbated by Evaluation data The following diagnostics were reviewed and interpreted by me:: lab results, radiology exam(s) and EKG tracing(s) (EKG @ 11:04, interpreted by me, normal sinus rhythm, rate 81, no STEMI. ) Lab and/or radiology exams considered but not ordered:: None Interpretation Summary: Ordering Physician: Roosevelt Rocha MD Date of Service: 02/22/25 Procedure(s): XR chest 1V portable Accession Number(s): [id number] cc: Roosevelt Rocha MD; Lesia Kramer MD; Jose Guadalupe Romero MD~ Study: Chest radiograph. INDICATION: Lower chest pain, left, 2 days. TECHNIQUE: AP portable upright chest radiograph at 1339 hours 22 February 2025. FINDINGS: There is total silhouetting of the left lung base by effusion, infiltrate or a combination. The balance of the left lung and entire right lung are fully expanded and free from alveolar infiltrates. There is no right effusion. The heart is normal in size. Superior mediastinal structures are narrow and peripheral vessels are normal in volume. IMPRESSION: 1. Resolved fluid overload last seen on 28 January 2025. 2. Left effusion, left base infiltrate alone or in combination. Dictated By: Jose Guadalupe Romero MD Signed By: <Electronically signed by Jose Guadalupe Romero MD in OV> 02/22/25 1403 Ordering Physician: Roosevelt Rocha MD Date of Service: 02/22/25 Procedure(s): CT abdomen pelvis wo con Accession Number(s): [id number] cc: Roosevelt Rocha MD; Lesia Kramer MD; Jose Guadalupe Romero MD~ Study: Abdomen pelvis CT. INDICATION: Abdominal pain and right mid quadrant mass. TECHNIQUE: 3 mm slice thickness with oral contrast alone. 3 mm sagittal and coronal reformats. 2 mm axial reformats. Radiation dose 888 mGy centimeters with dose reduction technique. 1976 images at 1538 hours 22 February 2025. Comparison: Abdomen pelvis CT of 13 August 2024. FINDINGS: The patient was imaged from the aortic valve to the subtrochanteric regions. The heart is normal in size and contour. There is no coronary artery plaque or pericardial effusion. A moderately large left and trace right pleural effusion are noted. The medial basal segment of the left lower lobe is consolidated. A subtle peripheral infiltrate is also noted in the lateral basal segment of the right lower lobe. There is been a cholecystectomy. The kidneys, ureters and urinary bladder are free from calculi. There is no hydronephrosis, ascites or free abdominal air. The partial right nephrectomy site is again noted and unchanged from the study of 13 August 2024. Parenchyma of the liver, pancreas, spleen, kidneys, right adrenal gland and periaortic lymph nodes region is normal. A left adrenal cyst of density 18 Hounsfield units and 3.1 cm diameter is essentially unchanged from the previous study. The stomach, duodenum, small bowel, appendix and colon to the upper half of the descending segment are normal. Thereafter, intact diverticuli are seen and small numbers. An umbilical hernia neck measures 12.3 cm in transmits a small amount of noninflamed adipose. 3.3 cm diameter defect in the right lateral abdominal wall musculature well seen in image 122 of sequence 201 transmits a larger amount of uninflamed adipose and no bowel segments. The urinary bladder is nearly empty and the urothelium cannot be transfer and pumphouse operator for thickness or masses. The uterus is anteverted and creates mass effect upon the roof of the bladder. Spinal alignment is normal. There is no fracture or focal bone lesion. The L2-3 disc is narrowed and pneumatized. There is a spur protruding into the spinal canal from the posterior inferior margin of L3. Several of the lumbar discs are also narrowed. Enthesophytes are seen at T12 and L1. The abdominal aorta and inferior vena cava are normal in caliber. No significant aortic plaque burden is noted. IMPRESSION: 1. Umbilical and right abdominal wall herniations essentially unchanged from July 2024. 2. Right partial nephrectomy unchanged. 3. Left effusion and partial left lower lobe consolidation with possible associated atelectasis. 4. Possible early infiltrate in the right lower lobe. Dictated By: Jose Guadalupe Romero MD Signed By: <Electronically signed by Jose Guadalupe Romero MD in OV> 02/22/25 6267 Medications / Prescriptions Medications or Prescriptions considered but not ordered:: None Medication administrations:: Medication Administration History Discontinued Medications Sodium Chloride (Ns) 1,000 mls @ 250 mls/hr IV .Q4H ONE Stop: 02/22/25 14:44 Last Infusion: 02/22/25 16:46 Dose: Infused Documented By: Admin: 02/22/25 12:34 Dose: 250 mls/hr Documented By: PATEL Morphine Sulfate (Morphine Sulf Inj 4 Mg/Ml Vial) 4 mg IVP X1 ONE Stop: 02/22/25 12:59 Last Admin: 02/22/25 13:14 Dose: 4 mg Documented By: PATEL Ondansetron HCl (Ondansetron Inj 2 Mg/Ml Inj 2 Ml) 4 mg IVP X1 ONE; Protocol Stop: 02/22/25 12:59 Last Admin: 02/22/25 13:13 Dose: 4 mg Documented By: PATEL See above Consultations Consultation(s) initiated? (list below): No Diagnosis Differential diagnosis abdominal pain: abdominal pain, constipation, gastroenteritis and small bowel obstruction Most likely diagnosis given after review of the tests above:: Mastitis Bilateral lung infiltrates Admission Indicated Admission indicated?: not indicated Admission Request Was there a request for admission?: No Disposition Plan Disposition Plan: Discharge Discharge Attestation Discharge Attestation: The patient and all family members were given an opportunity to ask questions and understood the discharge instructions. Discharge instructions specifically effects, indications for sooner follow up or return to the emergency department, and the expected course of current diagnosis. Patient condition: Stable Discharge Plan Plan Patient Disposition: HOME (Self Care) Patient condition on transfer: Stable Prescriptions/Referrals Prescriptions/Med Rec: No Action gabapentin 600 mg Tablet 1,200 mg PO TID (DME) FreeStyle Zoey 2 Bivins Misc See Rx Instructions .Route Qty: 1 2RF Rx Instructions: As directed; once daily insulin glargine 100 unit/mL solution 10 unit subcut QPM Qty: 10 4RF (DME) FreeStyle Zoey 2 Sensor Kit See Rx Instructions .Route Qty: 1 3RF Rx Instructions: As directed once daily hydrocodone-acetaminophen 10-325 mg tablet 1 tab PO Q6H MDD 4 PRN (Reason: pain) Qty: 30 0RF nifedipine 60 mg tablet extended release 24hr PO Patient Comments: TAKE 1 TABLET BY MOUTH EVERY DAY valsartan 160 mg tablet Patient Comments: TAKE 1 TABLET BY MOUTH EVERY DAY Nitro-Dur 0.3 mg/hr patch 24 hour 0.4 mg topical DAILY Qty: 30 0RF Rx Instructions: Apply at 6pm each day and remove at 12 noon the following day and repeat acetaminophen-codeine 120-12 mg/5 mL solution 5 ml PO Q6H PRN (Reason: pain) Qty: 120 0RF hydroxyzine HCl 25 mg tablet 25 mg PO HS PRN (Reason: insom) Qty: 30 0RF (DME) blood pressure monitor [Blood Pressure Kit] Kit See Rx Instructions .Route Qty: 1 0RF Rx Instructions: As directed albuterol sulfate 90 mcg/actuation HFA aerosol inhaler 2 puff inhalation Q6H PRN (Reason: shortness of breath or wheezing) Qty: 8.5 0RF methocarbamol 500 mg tablet 500 mg PO BID PRN (Reason: pain) Qty: 14 0RF Referrals: Lesia Kramer MD [Primary Care Provider] - In 1 week Problem List Clinical Impression: Mastitis, Infiltrate of both lungs present on imaging study Patient/Caregiver Discharge Instructions Discharge Activity: activity as tolerated Education Materials: ED Mastitis Additional Instructions: Take Augmentin 875 mg twice a day as already prescribed for 10 days. Follow-up with your regular doctor and dialysis as scheduled. Print Language: Armenian Stand Alone Forms: Monik Award Info., Patient Portal Info Letter
[2025-02-22 15:16] VITALS: BP 192/102; PULSE 75; RESP 16; TEMP 36.6; O2SAT 100
== END 2025-02-22 17:39 | disposition home or self-care (01) ==
PROVIDERS: Emergency Provider Family Medicine; PCP Family Medicine
DX: N61.0 Mastitis without abscess (principal); J98.11 Atelectasis
CPT/HCPCS: 36415; 71045; 74176; 80053; 81025; 84484; 85025; 85610; 85730; 93005; 96361; 96374; 96375; 99285; J2270; J2405; J7030; Q9963